=== PATIENT | female | born 1950 | race Caucasian/White ===

== ENCOUNTER 2020-05-02 17:48 | Inpatient (IN) | payer MEDICARE, MEDICAID, SELFPAY ==
[2020-05-02] VITALS (7 sets, daily range): BP systolic 153–198; BP diastolic 75–98; PULSE 85–112; RESP 22–34; TEMP 37.2; O2SAT 92–96; BMI 48.6
--- NOTE | ~2020-05-02 | XR_ITS ---
XR chest 1V portable 05/02/2020 19:04 Indication: Dyspnea and shortness of breath Procedure: AP portable chest Comparison: No prior studies for comparison. Findings: Cardiomegaly with diffuse bilateral airspace disease. Elevated right diaphragm. No pleural effusion or pneumothorax. Impression: 1: Diffuse bilateral airspace disease may represent edema or pneumonia. 2: Cardiomegaly. Reviewed, dictated and finalized at location A. MATIC I THREADING MACHINE FEEDER Impression: 1: Diffuse bilateral airspace disease may represent edema or pneumonia. 2: Cardiomegaly.
--- NOTE | ~2020-05-02 | CT_ITS ---
EXAMINATION: CTA chest PE protocol DATE: 05/03/2020 04:33 INDICATION: Acute respiratory failure. Elevated d-dimer. TECHNIQUE: Computed tomography angiography (CTA) of the chest was performed with 100 mL Omnipaque-350 intravenous contrast timed to evaluate the pulmonary arteries. Coronal maximum intensity projection 3D-reconstructions were created by the technologist. Automated exposure control and iterative reconst ruction technique were employed. Exam dose: 961.70 mGy-cm total exam DLP. COMPARISON: May 03, 2020 portable AP chest FINDINGS: There is diagnostic contrast enhancement of the pulmonary arteries. No pulmonary embolism. The main or segmental pulmonary arteries. The more peripheral pulmonary arteries are not optimally demonstrated. No thoracic aortic aneurysm or dissection. There is revision right effusion. There UPJ present in one is Cardiomegaly. Coronary artery calcification. No pericardial effusion. There are extensive bilateral patchy consolidating infiltrates, right greater than left, with promine nt consolidation in particular in the lower lobes with air bronchograms. Probable reactive bilateral hilar and mediastinal lymphadenopathy. Calcified right hilar and subcarinal nodes consistent with old pulmonary granulomatous disease. Thyroid goiter with calcifications. Status post cholecystectomy. Very small sliding hiatal hernia. Diffuse idiopathic skeletal hyperostosis of the thoracic spine. IMPRESSION: Bilateral multi focal pneumonia No apparent pulmonary embolism Reviewed, dictated and finalized at Location A. Reviewed, dictated and finalized at location A. OUND TELEMARKETER
--- NOTE | ~2020-05-02 | XR_ITS ---
EXAMINATION: XR chest 1V portable DATE: 05/04/2020 08:13 INDICATION: Respiratory failure. TECHNIQUE: A single frontal view of the chest was obtained. COMPARISON: Chest single view 05/03/2020, chest CT 05/03/2020 FINDINGS: There are patchy airspace opacities in all lung zones bilaterally. A calcified right lung n odule and calcified right hilar lymph nodes are consistent with old granulomatous disease. There is a small right pleural effusion. No pneumothorax. The heart size is normal. A right upper extremity per ipherally inserted central venous catheter (PICC) is seen with tip in the superior vena cava. IMPRESSION: 1. Diffuse lung disease with slight improvement, consistent with pneumonia. 2. Stable small right pleural effusion. Reviewed, dictated and finalized at location A. SELOR CAMP
--- NOTE | ~2020-05-02 | US_ITS ---
EXAMINATION: US venous doppler [facility] DATE: 05/03/2020 14:15 INDICATION: Lower limb edema. TECHNIQUE: Grayscale ultrasound images without and with compression and Doppler ultrasound images of the bilateral lower extremity veins were obtained. COMPARISON: None. FINDINGS: The visualized portions of right common femoral vein, profunda (deep) femoral vein, femoral vein, pop liteal vein, posterior tibial veins, and greater saphenous vein outflow are patent. The visualized portions of left common femoral vein, profunda femoral vein, femoral vein, popliteal v ein, posterior tibial veins, and greater saphenous vein outflow are patent. IMPRESSION: 1. No deep venous thrombosis. Reviewed, dictated and finalized at location A. TIENT CODER
--- NOTE | ~2020-05-02 | XR_ITS ---
XR chest 1V portable DATE: 05/03/2020 01:41 INDICATION: Acute respiratory failure. Elevated d-dimer. TECHNIQUE: Portable AP chest on May 03, 2020 at 0135 hours COMPARISON: May 02, 2020 portable AP chest at 1900 hours FINDINGS: Cardiomegaly. There are extensive bilateral pulmonary infiltrates which are more prominent centrally and in the lower lung zones. Findings may be due to pulmonary edema and/or pneumonia. There is t elevation of the right leaf of the diaphragm. Right pleural effusion is not excluded. Ther e is no evidence of left pleural effusion. No pneumothorax. IMPRESSION: Extensive bilateral pulmonary infiltrates, which may be due to pulmonary edema and/or pne umonia, with little interval change since May 02, 2020 Reviewed, dictated and finalized at location A. ITIONAL SERVICES HOST IMPRESSION: Extensive bilateral pulmonary infiltrates, which may be due to pulm onary edema and/or pneumonia, with little interval change since May 02
--- NOTE | 2020-05-02 18:13 | ECG_ITS ---
Measurements Intervals [place] Rate: 101 P: 40 AL: 172 QRS: -26 QRSD: 86 T: -15 QT: 308 QTc: 399 Interpretive Statements SINUS TACHYCARDIA EARLY PRECORDIAL R/S TRANSITION BORDERLINE ST-T WAVE ABNORMALITY- ANTEROLAT/INF LEADS BASELINE ARTIFACT- I, III, AVR, AVL, AVF, V1-V6 ABNORMAL ECG Electronically Signed On 05-03-2020 10:21:19 [employer]OR [employer] by Stefano Ford D.O.
[2020-05-02] MEDS: MAGNESIUM SULF 2 GM/WATER 50ML 2 GM/50 ML BAG IVPB (18:33)
[2020-05-02] MEDS: methylPREDNISolone SOD SUCC 125 MG VIAL IV PUSH (18:33)
[2020-05-02] MEDS: IPRATROPIUM BR 0.02% INH SOLN 0.5 MG/2.5 ML VIAL 1 MG INHALATION (18:35)
[2020-05-02] MEDS: ALBUTEROL SULFATE NEB 2.5 MG/0.5 ML INH 10 MG INHALATION (18:35)
[2020-05-02 18:38] LABS: Alveolar/Arterial O2 Gradient 7.5 mmHg; Base Excess ABG -5.1 mEq/l (+/-2.0); Fractional Inspired Oxygen 21 %; HCO3 ABG 22.5 mEq/l (22.0-26.0); Oxygen Saturation ABG 94.2 % (95.0-100.0); Oxyhemoglobin 93.3 % THb (90.0-100.0); PCO2 ABG 51.1 mmHg (35.0-45.0); PO2 FiO2 Ratio Arterial Blood 3.86 %; Total Hemoglobin 15.2 g/dL (12.0-18.0)
[2020-05-02 18:40] LABS: pH ABG 7.261 (7.350-7.450)
[2020-05-02 18:41] LABS: Device ROOM AIR; Modified Allen's Test Pass; Site Drawn LEFT RADIAL
--- NOTE | 2020-05-02 18:47 | PCRCNOTE ---
Pt found with 4L NC on ear. ABG done on room air SpO2 94%.
--- NOTE | 2020-05-02 18:57 | ED.SOB ---
HPI - SOB/Dyspnea General Chief Complaint: Shortness of Breath/Dyspnea Stated Complaint: SOB Time Seen by Provider: 05/02/20 18:12 Source: patient Mode of arrival: EMS Limitations: no limitations History of Present Illness HPI Narrative: A 69-year-old female comes into the emergency department via EMS for shortness of breath. Reportedly per EMS the patient symptoms started approximately 1 week ago. She notes that she is having extreme difficulty with breathing. Patient does note a history of asthma. She is uncertain if she was exposed anyone with Covid. Patient's history truncated secondary to emergent presentation. Related Data Home Medications Medication Instructions Recorded Confirmed atorvastatin 10 mg tablet 10 mg PO DAILY 02/07/19 citalopram 20 mg tablet 20 mg PO DAILY 02/07/19 insulin aspar prot-insulin aspart 20 unit SUB-Q DAILY 02/07/19 100 unit/mL (70-30) subcutaneous pen insulin aspart U-100 100 unit/mL 5 unit SUB-Q TID 02/07/19 (3 mL) subcutaneous pen insulin glargine 100 unit/mL (3 30 unit SUB-Q DAILY 02/07/19 mL) subcutaneous pen insulin lispro 100 unit/mL 5 unit SUB-Q QAM ml 02/07/19 subcutaneous pen insulin lispro protamine-lispro 25 unit SUB-Q QAM 02/07/19 100 unit/mL (75-25) subcutaneous susp insulin syringe-needle U-100 0.5 #10 each 02/07/19 mL 31 gauge x /16 lisinopril 40 mg tablet 40 mg PO DAILY 02/07/19 montelukast 10 mg tablet 10 mg PO DAILY 02/07/19 nystatin 100,000 unit/gram topical 1 applic TOPICAL DAILY 02/07/19 cream trazodone 50 mg tablet 50 mg PO TID 02/07/19 Allergies Allergy/AdvReac Type Severity Reaction Status Date / Time acetaminophen Allergy Unknown Verified 07/18/16 00:35 Review of Systems Review of Systems: ROS unobtainable: Yes unobtainable due to medical condition PMFSH Past Medical History Medical History Diabetes Essential hypertension Hyperkalemia Hyperlipidemia Surgical History Surgical History History of cholecystectomy History of tubal ligation Family History Family History Mother Hypercholesterolemia Malignant neoplasm of skin Father Heart disease Grandparent Diabetes mellitus Other Diabetes mellitus Breast cancer Social History Social History Smoking status: Current every day smoker Alcohol intake: current Exam Narrative: Exam Narrative: GENERAL: Obese, tachypneic appears to be in respiratory distress. HEAD: Normocephalic, atraumatic. EYES: PERRLA and EOMI. ENT: Nares clear, no rhinorrhea or epistaxis. Mucous membranes moist. Oropharynx without tonsillar hypertrophy exudate or other lesions. Bilateral TMs pearly vale nonbulging NECK: Supple. No adenopathy or masses. No carotid bruits or JVD CHEST: Diffusely wheezy, coarse breath sounds diffusely. Tachypnea HEART: Tachycardic. No murmur heard. Normal peripheral pulses. ABDOMEN: Obese abdomen, soft, nontender, nondistended, normal active bowel sounds. EXTREMITIES: Normal range of motion. No edema. SKIN: Warm, dry, no rash. NEURO: No focal deficits. Alert and oriented x3. PSYCH: Normal mood and affect. Course Reevaluation(s) Reevaluation #1: Patient was reevaluated. After the breathing treatment she did appear to be much better. She was sleeping comfortably in the bed at this time. Patient still desatted slightly. Her chest x-ray does look concerning for Covid, patient was made aware of this. She did contribute some further history that her roommate or person she lives with has been coughing like crazy the last couple of days . Time: 21:35 Consultations Consultation #1: Case discussed with Dr. Broderick, hospitalist services. All pertinent details of the case were discussed, Dr. Broderick agrees to accept the patient for further treatme
[2020-05-02 19:01] LABS: Basophils Percent Auto 0.1 % (0.2-1.2); Hematocrit 44.7 % (37.0-47.0); Hemoglobin 14.6 g/dL (12.0-15.0); Immature Granulocyte Absolute 0.05 K/mm3 (0.00-0.031); Immature Granulocyte Percent A 0.5 % (0-0.5); Lymphocytes Absolute Auto 0.67 K/mm3 (0.9-3.2); Lymphocytes Percent Auto 6.4 % (18.3-44.2); Mean Corpuscular HGB Conc 32.7 g/dl (32-36); Mean Corpuscular Hemoglobin 30.4 pg (26-34); Mean Corpuscular Volume 92.9 fl (80-100); Mean Platelet Volume 10.2 fl (7.4-10.4); Monocytes Absolute Auto 0.3 K/mm3 (0.1-0.6); Monocytes Percent Auto 3.1 % (2.6-8.5); Neutrophils Absolute Auto 9.4 K/mm3 (1.3-6.7); Neutrophils Percent Auto 89.9 % (45.5-73.1); Platelet Count Result 143 k/mm3 (150-375); Red Blood Count 4.81 M/mm3 (4.2-5.4); Red Cell Distribution Width 12.6 % (11.5-14.5); White Blood Count 10.5 K/mm3 (4.5-10.0)
[2020-05-02 19:13] LABS: Alanine Aminotransferase 23 U/L (4-35); Albumin Level 3.7 g/dL (3.5-5.1); Alkaline Phosphatase 102 U/L (38-126); Anion Gap 6 mmol/L (8-16); Aspartate Amino Transferase 32 U/L (14-36); Bilirubin,Total 0.3 mg/dL (0.2-1.3); Blood Urea Nitrogen 17 mg/dL (7-17); Calcium 8.2 mg/dL (8.4-10.2); Carbon Dioxide 21 mmol/L (22-30); Chloride 107 mmol/L (98-107); Estimated CRCL calculation 94 ml/min; Estimated Glomerular Filt Rate > 60; Glucose 292 mg/dL (65-105); Magnesium 1.6 mg/dL (1.6-2.3); Potassium 4.7 mmol/L (3.4-5.0); Sodium 134 mmol/L (137-145)
[2020-05-02 19:25] LABS: Troponin I 0.021 ng/mL (0.000-0.034)
[2020-05-02] MEDS: FUROSEMIDE INJ 40 MG/4 ML VIAL IV PUSH (19:42)
[2020-05-02 20:25] LABS: NT Pro B Type Natriuretic Pept 348 PG/ML (5-100)
[2020-05-02] MEDS: KETOROLAC 15 MG/ML VIAL (*BKC) IV PUSH (21:00)
--- NOTE | 2020-05-02 21:18 | PM.IMHP ---
H&P: HPI History of Present Illness Date/Time: 05/02/20 21:18 Chief Complaint: Shortness of breath and cough Narrative: Ann Hill is a 69 year old female with a past medical history of chronic tobacco abuse, asthma, morbid obesity and insulin-dependent diabetes who presented to the ER with with 1 week of cough and shortness of breath. Patient reports that she has had a cough productive of yellow sputum for the last 7 days. Her cough but has been associated with worsening shortness of breath. Her shortness of breath is present at rest but worse with exertion. She was noted to be wheezing and had crackles on exam on arrival to the ER but improved after a continuous hour long neb. She denies any fevers or chills but reports that she feels hot in the ER. She denies any known COVID exposures but her roommate has been coughing for the last 2 weeks. She denies any nausea or vomiting but has had some decreased appetite. She reports that she always has myalgias and arthralgias and denies any changes in her chronic pain. She has not noticed any loss of sense of taste or smell. She denies any chest pain, palpitations or changes in her chronic lower extremity swelling. She denies history of CHF for heart disease. She has never been told that she has COPD but had has not had any pulmonary function testing. She was noted to have episodes of hypoxia with falling asleep in the ER. She does not have a known history of obstructive sleep apnea but has never had a sleep study. She has been having some stress urinary incontinence with coughing. She denies any dysuria, hematuria, hematochezia or melena. She did have a few episodes of loose stools several days ago but this has since resolved. She denies any abdominal pain. Review of Systems Review of Systems: Narrative: 12 systems were reviewed with pertinent positives and negatives per HPI. Except as documented in the HPI, all other systems were reviewed and are negative. [facility]LY [facility] Past Medical History Medical History (Updated 05/02/20 @ 23:23 by Mireya Zendejas DO) Diabetes Diabetic neuropathy Essential hypertension Hyperlipidemia Morbid obesity Overflow stress urinary incontinence in female Surgical History Surgical History History of cholecystectomy History of tubal ligation Family History Family History Mother Hypercholesterolemia Malignant neoplasm of skin Father Heart disease Grandparent Diabetes mellitus Other Diabetes mellitus Breast cancer Social History Social History (Updated 05/02/20 @ 23:13 by Mireya Zendejas DO) Social History: She is and lives with a roommate. She has 1 adult daughter. Her son in 2012 due to an ATV accident. She has smoked as much as pack of cigarettes per day since she was a teenager. She is currently cut down to half a pack of cigarettes per day for the last year or so. She occasionally drinks alcohol in moderation. She denies any illicit substance use. 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 Code status: Full code Surrogate decision maker: Daughter Smoking packs per day: 0.5 Smoking cigarettes per day: 10.0 Smoking status: Current every day smoker Tobacco type: cigarettes Alcohol intake: current Drinks per week: 1 Substance use: never Substance use type: does not use Gender identity (if verbalized by the patient): Female Sexual Orientation (if Verbalized by the Patient): Straight or Heterosexual Spiritual care concerns: No Meds Home Medications and Allergies Home Medications Medication Instructions Recorded Confirmed Type atorvastatin 10 mg tablet 10 mg PO DAILY 02/07/19 05/03/20 History citalopram 20 mg tablet 20 mg PO DAILY 02/07/19 05/03/20 History insulin aspar prot-insulin aspart 20 unit SUB-Q DAILY 02/07/19 05/03/20 History 100 unit/mL (70-30
[2020-05-03] VITALS (31 sets, daily range): BP systolic 95–160; BP diastolic 49–100; PULSE 71–97; RESP 18–38; TEMP 35.7–37.2; O2SAT 92–99
--- NOTE | 2020-05-03 | ECHO_ITS ---
Patient Info Name: Ann Hill Age: 69 years : 1950 Gender: Female Ht: 64 in Wt: 286 lbs BSA: 2.50 m2 HR: 82 bpm BP: 88 / 68 mmHg Heart Rhythm: Sinus Rhythm Technical Quality: Fair Exam Date: 05/03/2020 4:32 PM Exam Location: [facility] Pulmonary Exam Room: icu 4 Patient Status: Inpatient Admit Date: 05/03/2020 Staff Ordering Physician: Mireya Zendejas DO Fabric Worker: Lamar Bergeron RDCS Attending Provider: Mireya Zendejas DO Referring Physician: Aashish SHEIKH; Exam Type: CA echo doppler color flow Study Info Indications - RESP FAILURE CM Complete two-dimensional, color flow and Doppler transthoracic echocardiogram is performed. Summary 1. Complete two-dimensional, color flow and Doppler transthoracic echocardiogram is performed. 2. Left ventricular systolic function is normal, estimated at 55%. 3. There is akinesis of the mid inferoseptum and hypokinesis of the mid anteroseptum. 4. There is mildly increased left ventricular wall thickness. 5. Left atrial chamber dimension is moderately enlarged. 6. There is no aortic valve stenosis. 7. No pulmonary hypertension, estimated pulmonary arterial systolic pressure is 28 mmHg. Left Ventricle Left ventricular chamber dimension is normal. Left ventricular systolic function is normal, estimated at 55%. There is mildly increased left ventricular wall thickness. The left ventricular diastolic function is normal. There is akinesis of the mid inferoseptum and hypokinesis of the mid anteroseptum. Right Ventricle Right ventricular chamber dimension is normal. Right ventricular systolic function is normal. Left Atria Left atrial chamber dimension is moderately enlarged. Right Atria Right atrial chamber dimension is normal. Aortic Valve The aortic valve is not well visualized. There is mild aortic valve sclerosis. There is no aortic valve stenosis. There is no aortic valve regurgitation. Pulmonic Valve The pulmonic valve is not well visualized. Mitral Valve The mitral valve has normal leaflets. There is no mitral valve regurgitation. The mitral valve annulus is mildly calcified. Tricuspid Valve The tricuspid valve leaflets are normal. There is trace tricuspid valve regurgitation. No pulmonary hypertension, estimated pulmonary arterial systolic pressure is 28 mmHg. Pericardium/Pleural The pericardium appears normal. There is trivial pericardial effusion. Inferior Vena Cava Normal inferior vena cava with <50% collapse upon inspiration consistent with elevated right atrial pressure, 10 mmHg. Aorta The aortic root size at the sinus of Valsalva is normal. Left Ventricular Outflow Tract Name Value Normal LVOT 2D LVOT Diameter 2.1 cm LVOT Doppler LVOT Peak Gradient 5 mmHg LVOT Mean Gradient 3 mmHg LVOT VTI 22 cm LVOT VTI/AV VTI Ratio 0.9 LVOT Stroke Volume 78 ml LVOT CO 17.6 l/min LVOT CI
[2020-05-03 01:34] LABS: Alveolar/Arterial O2 Gradient 603.5 mmHg; Base Excess ABG -9.3 mEq/l (+/-2.0); Carboxyhemoglobin 0.1 % THb (0-2.0); Fractional Inspired Oxygen 100 %; HCO3 ABG 17.9 mEq/l (22.0-26.0); Methemoglobin ABG 0.3 %THb (0-1.5); Oxygen Content ABG 19.8 %vol (16.0-22.0); Oxygen Saturation ABG 89.4 % (95.0-100.0); Oxyhemoglobin 90.4 % THb (90.0-100.0); PCO2 ABG 43.5 mmHg (35.0-45.0); PO2 FiO2 Ratio Arterial Blood 0.66 %; Reduced Hemoglobin 9.2 %THb (0-5.0); Total Hemoglobin 15.6 g/dL (12.0-18.0)
[2020-05-03 01:35] LABS: Device NON-REBREATHER MASK; Modified Allen's Test Pass; Site Drawn RIGHT RADIAL; pH ABG 7.232 (7.350-7.450)
--- NOTE | 2020-05-03 01:57 | ADMGEN ---
This patient, Ann Hill, was admitted to [facility] Surg Room 303-01. Patient/family oriented to hospital policies and general routines including ID bracelet, bed and alarms, visiting hours, pain management, procedures, bathroom and other care routines, personal items, smoking policy, room service/diet, and visiting hours. Information on how to activate the Rapid Response Team has been discussed. Patient/Family are encouraged to report perceived risks to care and to ask questions if they do not understand what they are told or what they should do.
[2020-05-03 02:08] LABS: INR 0.9; Prothrombin Time 12.8 Seconds (11.1-14.7)
--- NOTE | 2020-05-03 02:09 | PM.CCN ---
Critical Care Event Note Summary Code activated: No Narrative: 05/03/2020 at 1:15 a.m. A rapid response was called. The patient had had oxygen desaturations to the mid 70s while trying to be placed on the bedpan. The patient's respiratory rate had climbed to the mid 30s and she had respiratory distress. Patient had been placed on a non-rebreather with improvement in her oxygen saturations up to 93%. The patient's oxygen was weaned back down to 5 L nasal cannula but within 10-15 minute she again desatted to the low 80s. A stat chest x-ray was of performed which demonstrated worsening right upper and lower lobe lung opacities and stable cardiomegaly. Worsening PH but improvement in her pCO2 to a normal range. However she had new hypoxia with PO2 of 66% on non-rebreather. GENERAL: Acutely ill-appearing, morbidly obese, respiratory distress HEENT: Nasal cannula and non-rebreather in place, head is normocephalic atraumatic, large neck circumference CARDIOVASCULAR: Sinus rhythm with PACs, no murmurs RESPIRATORY: Coarse crackles bilaterally, and expiratory wheezing, marked tachypnea with accessory muscle use ABDOMEN: Obese, soft INTEGUMENT: Generalized pallor, non jaundice, chronic venous stasis changes of lower extremities NEUROLOGIC: Alert and oriented PSYCHIATRIC: Anxious EXTREMITIES: 1+ pitting edema to the feet with redundant skin : Incontinent of urine, Archuleta catheter was placed during the course of rapid response 05/02/20 05/03/20 18:34 01:29 Puncture Site Left radial Right radial ABG pH 7.261 L* 7.232 L* ABG pCO2 51.1 H 43.5 ABG pO2 81.0 66.0 L ABG PO2/FiO2 Ratio 3.86 0.66 ABG HCO3 22.5 17.9 L ABG O2 Saturation 94.2 L 89.4 L ABG O2 Content 20.0 19.8 ABG Base Excess -5.1 -9.3 A-a Gradient 7.5 603.5 Oxyhemoglobin 93.3 90.4 Carboxyhemoglobin 0.1 Reduced Hemoglobin 9.2 H Total Hemoglobin 15.2 15.6 O2 Delivery Device Room air Non-rebreather mask O2 Liters/Min Not Reportable 15.0 FiO2 21 100 Chest x-ray: Personally reviewed demonstrated worsening right upper and lower lobe infiltrates, radiologic interpretation pending Assessment and plan: 1. acute hypercapnic hypoxic respiratory failure--patient has been transferred to the ICU as an IMU overflow. She has been placed on BiPAP with settings of 14/8 with backup rate of 12. Patient's respiratory status has stabilized. Her respiratory rate is down to the mid 20s and less labored. She is pulling tidal volumes of 500-550. Her oxygen saturations on 100% FiO2 are 92%. 2. Pneumonia suspicious for COVID--patient remains on contact and droplet isolation. Will switch patient to albuterol nebulizers and Atrovent nebulizers. Will resume Solu-Medrol until COVID result is known. 60 minutes spent in critical care activities. This case had a high probability of a clinically significant, sudden, or life threatening deterioration of this patient's condition which required my full and direct attention, intervention and personal management. Critical care time: 30 - 74 mins
[2020-05-03 02:11] LABS: Lactic Acid Reflex 2.6 mmol/L (0.7-2.1)
[2020-05-03 02:12] LABS: D Dimer 1.56 ug/mL (<0.48)
[2020-05-03 02:24] LABS: Add Urine Microscopic? YES; Appearance Urine Cloudy (Clear); Bilirubin Urine Negative (Negative); Blood Urine 2+ (Negative); Color Urine Yellow (Yellow); Glucose Urine UA 3+ mg/dL (Negative); Ketones Urine Negative (Negative); Leukocyte Esterase Ur Negative LEU/UL (Negative); Mucus Urine Rare /lpf; Nitrate Urine Negative (Negative); Protein Urine 3+ mg/dL (Negative); Specific Grav Ur 1.025 (1.001-1.035); Squamous Epithelial Cell Urine Rare /hpf (Few); Urobilinogen Urine Negative mg/dL (<2.0); WBC Urine 0-3 /hpf
--- NOTE | 2020-05-03 02:27 | ECG_ITS ---
Measurements Intervals [place] Rate: 83 P: 34 AR: 162 QRS: 35 QRSD: 106 T: 31 QT: 408 QTc: 482 Interpretive Statements SINUS RHYTHM WITH SINUS ARRHYTHMIA BASELINE ARTIFACT- II, III, AVR, AVL, AVF NORMAL ECG Electronically Signed On 05-03-2020 10:21:44 OUTCOME ANALYST by Stefano Ford D.O.
[2020-05-03] MEDS: ALBUTEROL SULFATE NEB 2.5 MG/0.5 ML INH INHALATION (02:39)
[2020-05-03] MEDS: SODIUM CHLORIDE 0.9% IV 1,000 ML 999 ML IV CONT (03:25)
[2020-05-03 03:40] LABS: Alveolar/Arterial O2 Gradient 306.4 mmHg; Base Excess ABG -6.3 mEq/l (+/-2.0); Carboxyhemoglobin 0.3 % THb (0-2.0); Device NON-INVASIVE VENT; Fractional Inspired Oxygen 60 %; HCO3 ABG 19.5 mEq/l (22.0-26.0); Methemoglobin ABG 0.4 %THb (0-1.5); Modified Allen's Test Pass; Non-Invasive Inspiratory Pressure 14 CMH2O; Non-Invasive Vent Rate 12 /MIN; Oxygen Content ABG 19.3 %vol (16.0-22.0); Oxygen Saturation ABG 94.4 % (95.0-100.0); Oxyhemoglobin 93.8 % THb (90.0-100.0); PCO2 ABG 39.9 mmHg (35.0-45.0); PO2 ABG 77.5 mmHg (80.0-100.0); PO2 FiO2 Ratio Arterial Blood 1.29 %; Reduced Hemoglobin 5.5 %THb (0-5.0); Site Drawn RIGHT RADIAL; Total Hemoglobin 14.6 g/dL (12.0-18.0); pH ABG 7.307 (7.350-7.450)
[2020-05-03 03:41] LABS: Non-Invasive Expiratory Pressure 8 CMH2O
[2020-05-03] MEDS: ENOXAPARIN 100 MG/ML SYRINGE SUB-Q ×2 (03:43→16:15)
[2020-05-03] MEDS: ENOXAPARIN 30 MG/0.3 ML SYRINGE SUB-Q ×2 (03:43→16:15)
--- NOTE | 2020-05-03 04:21 | PCRCNOTE ---
Apnea study was stopped due to a change in the patient's status; The patient was placed on NIV and transported to the ICU.
[2020-05-03 04:55] LABS: Reflex Lactic Acid Yes or No Add Lactic
[2020-05-03 05:03] LABS: Basophils Percent Auto 0.1 % (0.2-1.2); Hematocrit 40.6 % (37.0-47.0); Hemoglobin 13.2 g/dL (12.0-15.0); Immature Granulocyte Absolute 0.08 K/mm3 (0.00-0.031); Immature Granulocyte Percent A 0.6 % (0-0.5); Lymphocytes Absolute Auto 0.52 K/mm3 (0.9-3.2); Lymphocytes Percent Auto 4.2 % (18.3-44.2); Mean Corpuscular HGB Conc 32.5 g/dl (32-36); Mean Corpuscular Hemoglobin 29.7 pg (26-34); Mean Corpuscular Volume 91.2 fl (80-100); Mean Platelet Volume 10.2 fl (7.4-10.4); Monocytes Absolute Auto 0.4 K/mm3 (0.1-0.6); Monocytes Percent Auto 3.1 % (2.6-8.5); Neutrophils Absolute Auto 11.5 K/mm3 (1.3-6.7); Platelet Count Result 137 k/mm3 (150-375); Red Blood Count 4.45 M/mm3 (4.2-5.4); Red Cell Distribution Width 12.8 % (11.5-14.5); White Blood Count 12.5 K/mm3 (4.5-10.0)
[2020-05-03 05:34] LABS: Anion Gap 6 mmol/L (8-16); Blood Urea Nitrogen 22 mg/dL (7-17); Calcium 8.1 mg/dL (8.4-10.2); Carbon Dioxide 20 mmol/L (22-30); Chloride 105 mmol/L (98-107); Estimated CRCL calculation 79 ml/min; Estimated Glomerular Filt Rate > 60; Glucose 485 mg/dL (65-105); Lactate Dehydrogenase 547 U/L (313-618); Potassium 4.9 mmol/L (3.4-5.0); Sodium 131 mmol/L (137-145)
[2020-05-03 05:47] LABS: CRP 14.6 mg/dL (<1.0)
[2020-05-03 05:55] LABS: Hemoglobin A1C 8.8 % (<5.7)
[2020-05-03] MEDS: SODIUM CHLORIDE 0.9% IV 1,000 ML 100 ML IV CONT (06:36)
[2020-05-03] MEDS: INSULIN ASPART (*BKC) 100 UNITS/ML 15 UNITS SUB-Q (06:36)
[2020-05-03] MEDS: INSULIN GLARGINE (*BKC) 100 UNITS/ML 40 UNITS SUB-Q ×3 (06:38→19:59)
[2020-05-03 06:50] LABS: Lactic Acid 1.1 mmol/L (0.7-2.1)
--- NOTE | 2020-05-03 06:55 | PC.NURSE ---
This patient Ann Hill was admitted to ICU bed [address] [place] [address] at 0200. Patient's belongings brought with patient.
[2020-05-03 07:04] LABS: Glucose Point of Care 463 (65-105)
[2020-05-03] MEDS: ALBUTEROL SULFATE NEB 2.5 MG/0.5 ML INH 5 MG INHALATION ×3 (08:06→20:02)
[2020-05-03] MEDS: IPRATROPIUM BR 0.02% INH SOLN 0.5 MG/2.5 ML VIAL INHALATION ×3 (08:06→20:02)
[2020-05-03] MEDS: INSULIN ASPART (*BKC) 100 UNITS/ML 11 UNITS SUB-Q ×3 (08:17→16:10)
[2020-05-03] MEDS: INSULIN ASPART (*BKC) 100 UNITS/ML SUB-Q ×3 (08:18→16:11)
[2020-05-03] MEDS: FUROSEMIDE INJ 40 MG/4 ML VIAL IV PUSH (08:20)
[2020-05-03] MEDS: SODIUM CHLORIDE 0.9% IV 1,000 ML 30 ML IV CONT (08:21)
[2020-05-03] MEDS: lisinopriL 20 MG TABLET 40 MG PO (08:24)
[2020-05-03] MEDS: MICONAZOLE NITRATE 2% CREAM 30 GM TUBE 1 APPLIC TOPICAL (08:24)
[2020-05-03] MEDS: MONTELUKAST SODIUM 10 MG TABLET PO (08:24)
[2020-05-03] MEDS: ATORVASTATIN 10 MG TABLET PO (08:24)
[2020-05-03] MEDS: INSULIN ASPART (*BKC) 100 UNITS/ML 10 UNITS SUB-Q (08:39)
[2020-05-03 08:53] LABS: Glucose Point of Care 461 (65-105)
[2020-05-03 09:20] LABS: Influenza Control Positive
[2020-05-03] MEDS: LIDOCAINE HCL 1% PF INJ 5 ML VIAL INFILTRATE (10:30)
--- NOTE | 2020-05-03 10:49 | PM.CNCAR ---
Assessment and Plan Additional Plan 69-year-old lady with: Significantly elevated troponin levels sampled in the absence of any other clinical or electrocardiographic evidence of an acute coronary syndrome. She has significant pneumonia on chest x-ray 1 must presume until proven otherwise that she has fisher virus. The majority of patients with COVID in this setting have significantly elevated troponin levels and I would presume that this is the reason for here laboratory findings. There is no clinical reason to think she will benefit from undergoing a coronary angiogram and I am not going to recommend this in this setting. Reduced dose anticoagulation with Lovenox is reasonable. She was placed on full dose by the hospitalists I believe last evening. Another potential alternative is COVID related myocarditis which is also not uncommon. Dimitris Dillon MD [facility] History of Present Illness History of Present Illness Consult date/time: 05/03/20 10:49 Reason For Visit: Asthma exacerbation/Suspected COVID Narrative: This is a 69-year-old woman I am seeing at the request of the hospitalist this morning because of elevated troponin levels that were done as part of her admission evaluation. The patient is not known to have any cardiac problems before this and is not reporting any chest pain. She came to the hospital with a history of shortness of breath that began approximately a week before admission it became more severe. She was asked if she had any fisher virus contacts and she indicated that a family member with whom she lives has had significant cough but has not been tested for COVID. The patient on arrival in the emergency room was hypoxemic she was placed on BiPAP treatment in the emergency room her chest x-ray demonstrates a multilobe pneumonia pattern and her electrocardiogram shows no evidence of any ischemia/current of injury. She denies having any sense of chest pain pressure or heaviness. The patient had troponin levels sampled of course when she was admitted to the hospital and they are significantly elevated the last one was 4.2. In this setting I am asked to see her in consultation. She is in ICU room 4. And COVID swab is pending at the time of this dictation. She is wearing a BiPAP mask and appears to be alert and answers questions appropriately. Review of Systems Constitutional: Constitutional: Reports fatigue Eyes: Eyes: Reports no additional eye complaints ENT: Reports system reviewed and no additional complaints, except as documented Cardiovascular: Cardiovascular: Reports no additional cardiovascular complaints Respiratory: Respiratory: Reports cough and Reports dyspnea Comments: Nonproductive cough Gastrointestinal: Gastrointestinal: Reports no additional gastrointestinal complaints Musculoskeletal: Musculoskeletal: Reports no additional musculoskeletal complaints Integumentary/Breasts: Skin/Breast: Reports system reviewed and no additional complaints, except as docu Neurologic: Reports system reviewed and no additional complaints, except as documented Endocrine: Endocrine: Reports no additional endocrine complaints Hematologic/Lymphatic: Hematologic/Lymphatic: Reports no additional hematologic/lymphatic complaints Allergic/Immunologic: Allergic/Immunologic: Reports no additional allergic/immunologic complaints [facility] Past Medical History Medical History (Updated 05/02/20 @ 23:23 by Mireya Zendejas DO) Diabetes Diabetic neuropathy Essential hypertension Hyperlipidemia Morbid obesity Overflow stress urinary incontinence in female Surgical History Surgical History History of cholecystectomy History of tubal ligation Family History Family History Mother Hypercholesterolemia Malignant neoplasm of skin Father Heart disease Grandparent Diabetes mellitus Other Diabetes mellitus
[2020-05-03 11:21] LABS: Glucose Point of Care 340 (65-105)
[2020-05-03] MEDS: CENTRAL LINE FLUSH 10 ML IV PUSH ×2 (13:56→20:00)
[2020-05-03 16:23] LABS: Glucose Point of Care 213 (65-105)
--- NOTE | 2020-05-03 17:11 | PM.IMPN ---
Progress Note: A&P Assessment and Plan (1) Acute hypercapnic respiratory failure: Code(s): J96.02 - Acute respiratory failure with hypercapnia Status: Acute Assessment and Plan: On continuous BiPAP Continuous pulse ox (2) Asthma with exacerbation: Qualifiers: Asthma persistence: persistent Asthma severity: severe Qualified Code(s): J45.51 - Severe persistent asthma with (acute) exacerbation Code(s): J45.901 - Unspecified asthma with (acute) exacerbation Status: Acute Assessment and Plan: Breathing treatments Systemic steroids (3) Acute respiratory failure due to COVID-19: Code(s): U07.1 - COVID-19; J96.00 - Acute respiratory failure, unspecified whether with hypoxia or hypercapnia Status: Acute Assessment and Plan: Positive Remdesivir Dexamethasone Convalescent plasma (4) Type 2 diabetes mellitus with hyperglycemia: Qualifiers: Diabetes mellitus alf insulin use: with alf use Qualified Code(s): E11.65 - Type 2 diabetes mellitus with hyperglycemia; Z79.4 - long-term (current) use of insulin Code(s): E11.65 - Type 2 diabetes mellitus with hyperglycemia Status: Acute Assessment and Plan: NPO ISS as needed (5) Tobacco abuse disorder: Code(s): Z72.0 - Tobacco use Status: Acute Assessment and Plan: Noted Subjective Date/time seen: 05/03/20 17:11 Patient is on BiPAP Review of Systems Review of Systems: ROS unobtainable: Yes unobtainable due to medical condition Exam Narrative: Exam Narrative: Lying in bed Const: General: acute distress (On BiPAP, tachypneic) mild Nutritional Appearance: overweight Orientation/consciousness: patient oriented x3 HENMT: Head: normal to inspection and normocephalic Ears: hearing grossly normal bilaterally Face and sinus: normal facial exam Eyes: General: appearance normal, both eyes and all related structures Pupils: Equal, round and reactive pupils present EOM: EOMs intact bilaterally Neck: Neck: no lymphadenopathy, supple and no JVD Lymphatic: no lymphadenopathy noted Resp: Effort & Inspection: respiratory distress and tachypneic Auscultation: wheezes and diminished lung sounds Cardio: Jugular venous distension: no JVD Rate: regular rate Rhythm: regular rhythm GI: GI Palp: Yes Soft to palpation and Yes No hepatosplenomegaly present Skin: Wounds: no wounds Neuro: General: patient oriented x3 and CN's II-XI intact bilaterally Cranial nerves: Yes CN's II-XII intact bilaterally and Yes Equal, round and reactive pupils present Cognition (Neuro): normal cognition Motor exam (neuro): 5/5 motor strength present throughout Extrem: General: no pedal edema Objective Data Vital Signs Vital Signs: Vital Signs - 24 hr 05/02/20 17:58 05/02/20 18:14 05/02/20 18:35 Temperature 99.0 F Pulse Rate 103 H 106 H Respiratory Rate 32 H 34 H Blood Pressure 198/75 H Pulse Oximetry 96 96 05/02/20 20:12 05/02/20 20:59 05/02/20 22:47 Temperature Pulse Rate 112 H 90 96 Respiratory Rate 28 H 22 H 26 H Blood Pressure 153/98 H Pulse Oximetry 95 96 05/02/20 23:57 05/03/20 00:00 05/03/20 01:15 Temperature 97.6 F Pulse Rate 85 86 95 Respiratory Rate 38 H Blood Pressure 160/100 H Pulse Oximetry 92 92 05/03/20 02:00 05/03/20 02:01 05/03/20 02:03 Temperature Pulse Rate 96 96 97 Respiratory Rate 31 H 34 H Blood Pressure Pulse Oximetry 92 93 05/03/20 02:11 05/03/20 02:15 05/03/20 02:39 Temperature Pulse Rate 94 87 Respiratory Rate 35 H 33 H Blood Pressure 143/88 H Pulse Oximetry 94 92 05/03/20 02:46 05/03/20 04:00 05/03/20 04:39 Temperature Pulse Rate 86 84 79 Respiratory Rate 31 H 28 H 27 H Blood Pressure Pulse Oximetry 97 97 05/03/20 05:30 05/03/20 06:00 05/03/20 08:00 Temperature 98.4 F Pulse Rate 83 82 90 Respiratory Rate 26 H 27 H 20 Blood Pressure 151/88 H 1
[2020-05-03 18:11] LABS: SARS-CoV-2 RNA PCR Positive
[2020-05-03 20:10] LABS: Glucose Point of Care 134 (65-105)
--- NOTE | 2020-05-03 22:56 | PCRCNOTE ---
05/03/2020 PT still on bipap of 14/8 RR 12 and 50%. Unable to due apnea link tonight due to cont. bipap. Wait till pt is more stable.
[2020-05-04] VITALS (32 sets, daily range): BP systolic 94–159; BP diastolic 44–88; PULSE 72–86; RESP 18–28; TEMP 35.9–36.7; O2SAT 94–100
[2020-05-04] MEDS: ALBUTEROL SULFATE NEB 2.5 MG/0.5 ML INH 5 MG INHALATION ×4 (01:58→20:58)
[2020-05-04] MEDS: IPRATROPIUM BR 0.02% INH SOLN 0.5 MG/2.5 ML VIAL INHALATION ×4 (01:58→20:58)
[2020-05-04] MEDS: CENTRAL LINE FLUSH 10 ML IV PUSH ×3 (06:10→19:59)
[2020-05-04] MEDS: ENOXAPARIN 100 MG/ML SYRINGE SUB-Q ×2 (06:10→17:25)
[2020-05-04] MEDS: ENOXAPARIN 30 MG/0.3 ML SYRINGE SUB-Q ×2 (06:11→17:25)
--- NOTE | 2020-05-04 08:40 | WPDCNINT ---
Assessment and Plan Assessment and plan (1) Acute respiratory failure with hypoxia and hypercapnia: Code(s): J96.01 - Acute respiratory failure with hypoxia; J96.02 - Acute respiratory failure with hypercapnia Status: Acute Assessment and Plan: Acute Respiratory failure secondary to COVID-19, ? questionable secondary bacterial pneumonia, baseline asthma/COPD, obesity hypoventilation syndrome CTA 2/ - IMPRESSION: Bilateral multi focal pneumonia No apparent pulmonary embolism CXR today 1. Diffuse lung disease with slight improvement, consistent with pneumonia. 2. Stable small right pleural effusion Patient currently on BiPAP 09/10 in 40% FiO2 I will try to switch her to AirVo today and see if she tolerates. If that is the case we will use BiPAP at night as patient does have element of hypercarbia and is morbidly obese ABG ordered and pending today Bronchodilators Continue antibiotics for empiric bacterial coverage = Rocephin and azithromycin. Cultures negative till now Patient is on dexamethasone for COVID-19 which should cover for asthma/COPD (2) Asthma with exacerbation: Qualifiers: Asthma persistence: persistent Asthma severity: severe Qualified Code(s): J45.51 - Severe persistent asthma with (acute) exacerbation Code(s): J45.901 - Unspecified asthma with (acute) exacerbation Status: Acute Assessment and Plan: Breathing treatments Systemic steroids (3) Acute respiratory failure due to COVID-19: Code(s): U07.1 - COVID-19; J96.00 - Acute respiratory failure, unspecified whether with hypoxia or hypercapnia Status: Acute Assessment and Plan: SARS-CoV-2 PCR positive Patient is in Airborne, Droplet and Contact Isolation Continue dexamethasone, remdesivir Convalescent Plasma is already ordered Incentive spirometry and up in chair to minimize atelectasis Cautious IVF Follow inflammatory periodically (4) Type 2 diabetes mellitus with hyperglycemia: Qualifiers: Diabetes mellitus care home insulin use: with intermediate designer use Qualified Code(s): E11.65 - Type 2 diabetes mellitus with hyperglycemia; Z79.4 - skilled nursing (current) use of insulin Code(s): E11.65 - Type 2 diabetes mellitus with hyperglycemia Status: Acute Assessment and Plan: NPO Sliding scale insulin and Lantus (5) NSTEMI (non-ST elevated myocardial infarction): Code(s): I21.4 - Non-ST elevation (NSTEMI) myocardial infarction Status: Acute Assessment and Plan: Patient seen by Cardiology. Recommend conservative management at this time and no plan for angiogram Continue aspirin, statin, lisinopril. Not on beta-therese due to asthma/COPD Continues anticoagulation until troponin levels trend downward ECHO Summary 1. Complete two-dimensional, color flow and Doppler transthoracic echocardiogram is performed. 2. Left ventricular systolic function is normal, estimated at 55%. 3. There is akinesis of the mid inferoseptum and hypokinesis of the mid anteroseptum. 4. There is mildly increased left ventricular wall thickness. 5. Left atrial chamber dimension is moderately enlarged. 6. There is no aortic valve stenosis. 7. No pulmonary hypertension, estimated pulmonary arterial systolic pressure is 28 mmHg. Additional Plan DVT prophylaxis -on Lovenox Stress ulcer prophylaxis -addPPI Nutrition -start diet today Code Status - Full Code I spoke patient in detail and she is willing to go on mechanical ventilation if needed and requests to be full code Total Critical Care Time - 35 minutes Due to a high probability of clinically significant, life threatening deterioration, the patient required my highest level of preparedness to intervene emergently and I personally spent this critical care time directly and personally managing the patient. This critical care time included obtaining a history; examining the patient; pulse oximetry; ordering and review of studies; a
[2020-05-04 09:05] LABS: Hematocrit 37.5 % (37.0-47.0); Immature Platelet Fraction Pct 4.3 % (0.9-11.2); Mean Corpuscular Hemoglobin 29.5 pg (26-34); Mean Corpuscular Volume 92.1 fl (80-100); Mean Platelet Volume 10.5 fl (7.4-10.4); Platelet Count Result 115 k/mm3 (150-375); Red Blood Count 4.07 M/mm3 (4.2-5.4); Red Cell Distribution Width 13.3 % (11.5-14.5)
[2020-05-04 09:08] LABS: Glucose Point of Care 146 (65-105)
[2020-05-04 09:13] LABS: Alanine Aminotransferase 24 U/L (4-35); Estimated CRCL calculation 61 ml/min; Estimated Glomerular Filt Rate 55
[2020-05-04] MEDS: MONTELUKAST SODIUM 10 MG TABLET PO (09:17)
[2020-05-04] MEDS: ATORVASTATIN 10 MG TABLET PO (09:17)
[2020-05-04] MEDS: lisinopriL 5 MG TABLET PO (09:17)
[2020-05-04] MEDS: MICONAZOLE NITRATE 2% CREAM 30 GM TUBE 1 APPLIC TOPICAL (09:17)
[2020-05-04] MEDS: SODIUM CHLORIDE 0.9% IV 250 ML 30 ML IV CONT (09:18)
[2020-05-04] MEDS: DEXAMETHASONE SOD PHOS INJ 4 MG/ML VIAL 6 MG IV PUSH (09:19)
[2020-05-04] MEDS: REMDESIVIR 200 MG/NS 250 ML 200 MG/250 ML BAG 250 MG IVPB (09:40)
[2020-05-04 10:12] LABS: Alveolar/Arterial O2 Gradient 220.9 mmHg; Base Excess ABG -2.5 mEq/l (+/-2.0); Carboxyhemoglobin 0.3 % THb (0-2.0); Fractional Inspired Oxygen 50 %; HCO3 ABG 22.6 mEq/l (22.0-26.0); Methemoglobin ABG 0.4 %THb (0-1.5); Oxygen Content ABG 17.4 %vol (16.0-22.0); Oxygen Saturation ABG 96.7 % (95.0-100.0); Oxyhemoglobin 95.7 % THb (90.0-100.0); PCO2 ABG 40.1 mmHg (35.0-45.0); PO2 ABG 90.5 mmHg (80.0-100.0); PO2 FiO2 Ratio Arterial Blood 1.81 %; Reduced Hemoglobin 3.6 %THb (0-5.0); Total Hemoglobin 12.9 g/dL (12.0-18.0); pH ABG 7.368 (7.350-7.450)
[2020-05-04 10:13] LABS: Device HIGH FLOW THERAPY; Modified Allen's Test Pass; Site Drawn RIGHT RADIAL
--- NOTE | 2020-05-04 11:13 | PM.PNCARD ---
Progress Note: A&P Additional Plan NSTEMI in setting of COVID pneumonia, could be related to myocardits vs ACS, plan Cont Anticoagulation with LMWH, ASA, statin and keep HGB > 10 gm/dL and keep sat > 88%. Subjective Date/time seen: 05/04/20 11:13 Interval history: no acute events Tele: Sinus tachycardia Review of Systems Review of Systems: ROS unobtainable: Yes unobtainable due to medical condition Objective Data Vital Signs Vital Signs: Vital Signs - 24 hr 05/03/20 11:14 05/03/20 12:00 05/03/20 13:49 Temperature 36.6 C 36.6 C Pulse Rate 75 79 78 Respiratory Rate 26 H 20 18 Blood Pressure 142/75 H 145/79 H Pulse Oximetry 94 94 95 05/03/20 14:38 05/03/20 14:47 05/03/20 15:42 Temperature 36.6 C Pulse Rate 77 88 76 Respiratory Rate 26 H 23 H 20 Blood Pressure 119/79 Pulse Oximetry 94 95 05/03/20 17:05 05/03/20 17:06 05/03/20 20:00 Temperature 36.7 C 35.7 C L Pulse Rate 73 78 87 Respiratory Rate 28 H 31 H 30 H Blood Pressure 95/49 L 102/86 Pulse Oximetry 97 95 96 05/03/20 20:02 05/03/20 20:03 05/03/20 20:08 Temperature Pulse Rate 80 76 75 Respiratory Rate 20 28 H 24 H Blood Pressure Pulse Oximetry 94 05/03/20 22:00 05/03/20 22:58 05/04/20 00:00 Temperature 36.5 C Pulse Rate 77 74 76 Respiratory Rate 29 H 23 H 24 H Blood Pressure 98/66 L 113/73 Pulse Oximetry 99 97 96 05/04/20 01:58 05/04/20 01:59 05/04/20 02:00 Temperature Pulse Rate 76 76 86 Respiratory Rate 22 H 22 H 22 H Blood Pressure 94/44 L Pulse Oximetry 96 96 05/04/20 02:05 05/04/20 04:00 05/04/20 05:05 Temperature 35.9 C L Pulse Rate 80 76 75 Respiratory Rate 23 H 23 H 21 H Blood Pressure 110/56 L Pulse Oximetry 96 98 05/04/20 06:00 05/04/20 07:43 05/04/20 07:51 Temperature Pulse Rate 75 82 82 Respiratory Rate 22 H 22 H 23 H Blood Pressure 119/59 L Pulse Oximetry 98 100 05/04/20 08:00 05/04/20 08:28 05/04/20 08:45 Temperature 36.4 C L Pulse Rate 82 Respiratory Rate 22 H Blood Pressure 105/70 Pulse Oximetry 99 98 99 05/04/20 10:00 05/04/20 10:05 05/04/20 10:27 Temperature Pulse Rate 77 Respiratory Rate 22 H Blood Pressure 114/59 L Pulse Oximetry 94 97 96 Intake/Output Intake/Output: Intake & Output 05/01/20 05/02/20 05/03/20 05/04/20 23:59 23:59 23:59 23:59 Intake Total 50 1600 950 Output Total 1550 175 Balance 50 50 775 Meds/Results Medications: Active Medications Generic Name Dose Route Start Last Admin Trade Name Freq PRN Reason Stop Dose Admin Albuterol 5 mg 05/03/20 08:00 05/04/20 07:39 Albuterol Sulfate Neb 2.5 Mg/0.5 Ml Inh INHALATION 5 mg Q6HRT JR Administration Atorvastatin Calcium 10 mg 05/03/20 09:00 05/04/20 09:17 Atorvastatin 10 Mg Tablet PO 10 mg DAILY JR Administration Dexamethasone Sodium Phosphate 6 mg 05/04/20 09:00 05/04/20 09:19 Dexamethasone Sod Phos Inj 4 Mg/Ml Vial IV PUSH 05/13/20 09:01 6 mg DAILY JR Administration Dextrose 12.5 gm 05/02/20 23:43 Dextrose 50% 25 Gm/50 Ml Syringe IV PUSH PRN PRN Hypoglycemia Protocol Enoxaparin Sodium 30 mg 05/03/20 03:25 05/04/20 06:11 Enoxaparin 30 Mg/0.3 Ml Syringe SUB-Q 30 mg 0600,1800 JR Administration Enoxaparin Sodium 100 mg 05/03/20 03:25 05/04/20 06:10 Enoxaparin 100 Mg/Ml Syringe SUB-Q 100 mg 0600,1800 JR Administration Glucagon 1 mg 05/02/20 23:43 Glucagon For Inj 1 Mg Vial IM PRN PRN Hypoglycemia Protocol Glucose 15 gm 05/02/20 23:43 Glucose Oral Gel 15 Gm Of Glucse In 37.5 Gm Tube PO PRN PRN Hypoglycemia Protocol Dextrose 1,000 mls @ 100 mls/hr 05/02/20 23:43 Dextrose 5% 1,000 Ml IVPB PRN PRN Hypoglycemia Protocol Ceftriaxone Sodium/Dextrose 1 gm in 50 mls @ 100 mls/hr 05/03/20 06:00 05/04/20 06:37 Rocephin 1 Gm/D5w 50 Ml IVPB Infused Q24H JR Infusion Azithromycin 500 mg in 250 m
[2020-05-04 12:08] LABS: Anion Gap 2 mmol/L (8-16); Blood Urea Nitrogen 34 mg/dL (7-17); Calcium 8.2 mg/dL (8.4-10.2); Carbon Dioxide 26 mmol/L (22-30); Chloride 109 mmol/L (98-107); Estimated CRCL calculation 67 ml/min; Estimated Glomerular Filt Rate > 60; Glucose 151 mg/dL (65-105); Lactate Dehydrogenase 607 U/L (313-618); Sodium 137 mmol/L (137-145)
[2020-05-04 12:37] LABS: CRP 13.4 mg/dL (<1.0)
--- NOTE | 2020-05-04 14:00 | PM.IMPN ---
Progress Note: A&P Assessment and Plan (1) NSTEMI (non-ST elevated myocardial infarction): Code(s): I21.4 - Non-ST elevation (NSTEMI) myocardial infarction Status: Acute Assessment and Plan: Likely myocarditis Cardiology note reviewed Follow Cardiology recs (2) Acute respiratory failure with hypoxia and hypercapnia: Code(s): J96.01 - Acute respiratory failure with hypoxia; J96.02 - Acute respiratory failure with hypercapnia Status: Acute Assessment and Plan: Last night was on BiPAP Int/CC note appreciated Airvo Breathing treatments (3) Type 2 diabetes mellitus with hyperglycemia: Qualifiers: Diabetes mellitus assisted insulin use: with assisted use Qualified Code(s): E11.65 - Type 2 diabetes mellitus with hyperglycemia; Z79.4 - compass operator (current) use of insulin Code(s): E11.65 - Type 2 diabetes mellitus with hyperglycemia Status: Acute Assessment and Plan: NPO Accu checks q 6 hours while NPO (4) Tobacco abuse disorder: Code(s): Z72.0 - Tobacco use Status: Acute Assessment and Plan: History of tobacco use (5) Acute respiratory failure due to COVID-19: Code(s): U07.1 - COVID-19; J96.00 - Acute respiratory failure, unspecified whether with hypoxia or hypercapnia Status: Acute Assessment and Plan: Remdesivir/Dexamethasone Convalescent plasma (6) Asthma with exacerbation: Qualifiers: Asthma persistence: persistent Asthma severity: severe Qualified Code(s): J45.51 - Severe persistent asthma with (acute) exacerbation Code(s): J45.901 - Unspecified asthma with (acute) exacerbation Status: Acute Assessment and Plan: Breathing treatments. Subjective Date/time seen: 05/04/20 14:00 Patient states that she feels better. Review of Systems Review of Systems: Narrative: Currently on BiPAP ROS unobtainable: Yes unobtainable due to medical condition Exam Narrative: Exam Narrative: Lying in bed. BiPAP is on. Const: General: comfortable, no acute distress, alert, awake and Physically active Nutritional Appearance: overweight Orientation/consciousness: patient oriented x3 HENMT: Head: normal to inspection and normocephalic Ears: hearing grossly normal bilaterally General nose exam: Normal external nose present Face and sinus: normal facial exam Eyes: General: appearance normal, both eyes and all related structures Pupils: Equal, round and reactive pupils present EOM: EOMs intact bilaterally Neck: Neck: no lymphadenopathy, supple and no JVD Resp: Auscultation: diminished lung sounds Cardio: Rate: regular rate Rhythm: regular rhythm GI: GI Palp: Yes Soft to palpation and Yes No hepatosplenomegaly present Skin: Rashes: no rashes Neuro: General: patient oriented x3 and CN's II-XI intact bilaterally Cranial nerves: Yes CN's II-XII intact bilaterally and Yes Equal, round and reactive pupils present Cognition (Neuro): normal cognition Speech: normal speech Motor exam (neuro): 5/5 motor strength present throughout Extrem: General: no pedal edema Objective Data Vital Signs Vital Signs: Vital Signs - 24 hr 05/03/20 14:38 05/03/20 14:47 05/03/20 15:42 Temperature 97.8 F Pulse Rate 77 88 76 Respiratory Rate 26 H 23 H 20 Blood Pressure 119/79 Pulse Oximetry 94 95 05/03/20 17:05 05/03/20 17:06 05/03/20 20:00 Temperature 98.1 F 96.3 F L Pulse Rate 73 78 87 Respiratory Rate 28 H 31 H 30 H Blood Pressure 95/49 L 102/86 Pulse Oximetry 97 95 96 05/03/20 20:02 05/03/20 20:03 05/03/20 20:08 Temperature Pulse Rate 80 76 75 Respiratory Rate 20 28 H 24 H Blood Pressure Pulse Oximetry 94 05/03/20 22:00 05/03/20 22:58 05/04/20 00:00 Temperature 97.7 F Pulse Rate 77 74 76 Respiratory Rate 29 H 23 H 24 H Blood Pressure 98/66 L 113/73 Pulse Oximetry 99 97 96 05/04/20 01:58 05/04/20 01:59 05/04/20 02:00 Temperature Pulse Rate 76 76
[2020-05-04] MEDS: INSULIN ASPART (*BKC) 100 UNITS/ML SUB-Q (17:25)
[2020-05-04 18:33] LABS: Glucose Point of Care 237 (65-105)
[2020-05-04 18:33] LABS: Glucose Point of Care 181 (65-105)
[2020-05-04] MEDS: SODIUM CHLORIDE 0.9% IV 1,000 ML 30 ML IV CONT (19:58)
[2020-05-04] MEDS: INSULIN GLARGINE (*BKC) 100 UNITS/ML 40 UNITS SUB-Q (19:59)
[2020-05-04 23:29] LABS: Glucose Point of Care 228 (65-105)
[2020-05-05] VITALS (23 sets, daily range): BP systolic 118–162; BP diastolic 64–83; PULSE 67–88; RESP 18–27; TEMP 35.6–36.6; O2SAT 95–100
[2020-05-05] MEDS: guaiFENesin 12 HR 600 MG TABCR PO ×3 (00:19→20:22)
[2020-05-05] MEDS: ACETAMINOPHEN 325 MG TABLET 650 MG PO (00:19)
[2020-05-05] MEDS: ALBUTEROL SULFATE NEB 2.5 MG/0.5 ML INH 5 MG INHALATION ×4 (03:02→20:31)
[2020-05-05] MEDS: IPRATROPIUM BR 0.02% INH SOLN 0.5 MG/2.5 ML VIAL INHALATION ×4 (03:02→20:32)
[2020-05-05 04:39] LABS: Hematocrit 37.6 % (37.0-47.0); Hemoglobin 11.9 g/dL (12.0-15.0); Immature Platelet Fraction Pct 3.9 % (0.9-11.2); Mean Corpuscular HGB Conc 31.6 g/dl (32-36); Mean Corpuscular Hemoglobin 29.7 pg (26-34); Mean Corpuscular Volume 93.8 fl (80-100); Mean Platelet Volume 10.6 fl (7.4-10.4); Platelet Count Result 137 k/mm3 (150-375); Red Blood Count 4.01 M/mm3 (4.2-5.4); Red Cell Distribution Width 13.2 % (11.5-14.5); White Blood Count 7.6 K/mm3 (4.5-10.0)
[2020-05-05 04:53] LABS: Alanine Aminotransferase 37 U/L (4-35); Albumin Level 2.9 g/dL (3.5-5.1); Alkaline Phosphatase 69 U/L (38-126); Anion Gap 2 mmol/L (8-16); Aspartate Amino Transferase 58 U/L (14-36); Bilirubin,Total 0.3 mg/dL (0.2-1.3); Blood Urea Nitrogen 29 mg/dL (7-17); Calcium 8.2 mg/dL (8.4-10.2); Carbon Dioxide 26 mmol/L (22-30); Chloride 111 mmol/L (98-107); Estimated CRCL calculation 75 ml/min; Estimated Glomerular Filt Rate > 60; Glucose 120 mg/dL (65-105); Magnesium 2.1 mg/dL (1.6-2.3); Potassium 4.2 mmol/L (3.4-5.0); Sodium 139 mmol/L (137-145)
[2020-05-05] MEDS: ENOXAPARIN 30 MG/0.3 ML SYRINGE SUB-Q (06:05)
[2020-05-05] MEDS: ENOXAPARIN 100 MG/ML SYRINGE SUB-Q (06:05)
[2020-05-05] MEDS: CENTRAL LINE FLUSH 10 ML IV PUSH ×3 (06:06→20:22)
--- NOTE | 2020-05-05 08:06 | WPDINTPN ---
Progress Note: A&P Assessment and Plan (1) Acute respiratory failure with hypoxia and hypercapnia: Code(s): J96.01 - Acute respiratory failure with hypoxia; J96.02 - Acute respiratory failure with hypercapnia Status: Acute Assessment and Plan: Acute Respiratory failure secondary to COVID-19, ? questionable secondary bacterial pneumonia, baseline asthma/COPD, obesity hypoventilation syndrome CTA 2 - IMPRESSION: Bilateral multi focal pneumonia No apparent pulmonary embolism CXR today 1. Diffuse lung disease with slight improvement, consistent with pneumonia. 2. Stable small right pleural effusion Patient currently on BiPAP 14/ in 35% FiO2 She tolerated AirVo yesterday during the day. Will continue with high-flow nasal cannula during the day and BiPAP at night/PRN as patient does have element of hypercarbia and is morbidly obese Continue Bronchodilators Continue antibiotics for empiric bacterial coverage = Rocephin and azithromycin. Cultures negative till now Patient is on dexamethasone for COVID-19 which should cover for asthma/COPD (2) Asthma with exacerbation: Qualifiers: Asthma persistence: persistent Asthma severity: severe Qualified Code(s): J45.51 - Severe persistent asthma with (acute) exacerbation Code(s): J45.901 - Unspecified asthma with (acute) exacerbation Status: Acute Assessment and Plan: Breathing treatments Systemic steroids (3) Acute respiratory failure due to COVID-19: Code(s): U07.1 - COVID-19; J96.00 - Acute respiratory failure, unspecified whether with hypoxia or hypercapnia Status: Acute Assessment and Plan: SARS-CoV-2 PCR positive Patient is in Airborne, Droplet and Contact Isolation Continue dexamethasone, remdesivir Convalescent Plasma is already ordered Incentive spirometry and up in chair to minimize atelectasis Follow inflammatory periodically (4) Type 2 diabetes mellitus with hyperglycemia: Qualifiers: Diabetes mellitus shelter insulin use: with termite exterminator use Qualified Code(s): E11.65 - Type 2 diabetes mellitus with hyperglycemia; Z79.4 - assisted (current) use of insulin Code(s): E11.65 - Type 2 diabetes mellitus with hyperglycemia Status: Acute Assessment and Plan: Diabetic Sliding scale insulin and Lantus (5) NSTEMI (non-ST elevated myocardial infarction): Code(s): I21.4 - Non-ST elevation (NSTEMI) myocardial infarction Status: Acute Assessment and Plan: Patient seen by Cardiology. Recommend conservative management at this time and no plan for angiogram Continue aspirin, statin, lisinopril. Not on beta-therese due to asthma/COPD Troponin level is now trending downward. Will discontinue therapeutic dose Lovenox and switched to intermediate dose for DVT prophylaxis ECHO Summary 1. Complete two-dimensional, color flow and Doppler transthoracic echocardiogram is performed. 2. Left ventricular systolic function is normal, estimated at 55%. 3. There is akinesis of the mid inferoseptum and hypokinesis of the mid anteroseptum. 4. There is mildly increased left ventricular wall thickness. 5. Left atrial chamber dimension is moderately enlarged. 6. There is no aortic valve stenosis. 7. No pulmonary hypertension, estimated pulmonary arterial systolic pressure is 28 mmHg. Additional Plan DVT prophylaxis -on Lovenox 40 mg subcu q.12 hours Stress ulcer prophylaxis -PPI Nutrition -diabetic diet Consult PT OT, IS and up in chair Code Status - Full Code I spoke patient in detail and she is willing to go on mechanical ventilation if needed and requests to be full code Total Critical Care Time - 30 minutes Due to a high probability of clinically significant, life threatening deterioration, the patient required my highest level of preparedness to intervene emergently and I personally spent this critical care time directly and personally managing the patient. This critical ca
[2020-05-05] MEDS: DEXAMETHASONE SOD PHOS INJ 4 MG/ML VIAL 6 MG IV PUSH (09:34)
[2020-05-05] MEDS: ATORVASTATIN 10 MG TABLET PO (09:35)
[2020-05-05] MEDS: MONTELUKAST SODIUM 10 MG TABLET PO (09:35)
[2020-05-05] MEDS: REMDESIVIR 100 MG/NS 250 ML 100 MG/250 ML BAG 250 MG IVPB (09:35)
[2020-05-05] MEDS: lisinopriL 5 MG TABLET PO (09:35)
[2020-05-05] MEDS: MICONAZOLE NITRATE 2% CREAM 30 GM TUBE 1 APPLIC TOPICAL (09:36)
[2020-05-05 12:10] LABS: Glucose Point of Care 166 (65-105)
[2020-05-05 12:10] LABS: Glucose Point of Care 211 (65-105)
[2020-05-05] MEDS: INSULIN ASPART (*BKC) 100 UNITS/ML SUB-Q ×2 (13:09→18:15)
[2020-05-05] MEDS: INSULIN ASPART (*BKC) 100 UNITS/ML 10 UNITS SUB-Q ×2 (13:09→18:15)
--- NOTE | 2020-05-05 13:47 | PM.IMPN ---
Progress Note: A&P Assessment and Plan (1) Acute respiratory failure due to COVID-19: Code(s): U07.1 - COVID-19; J96.00 - Acute respiratory failure, unspecified whether with hypoxia or hypercapnia Status: Acute Assessment and Plan: On BiPAP at night time HFNC/Airvo during day time Doing well Continue to monitor Remdesivir/Dexamethasone Appreciate Int/CC note (2) Acute respiratory failure with hypoxia and hypercapnia: Code(s): J96.01 - Acute respiratory failure with hypoxia; J96.02 - Acute respiratory failure with hypercapnia Status: Acute Assessment and Plan: Improved (3) Type 2 diabetes mellitus with hyperglycemia: Qualifiers: Diabetes mellitus intermediate designer insulin use: with shelter use Qualified Code(s): E11.65 - Type 2 diabetes mellitus with hyperglycemia; Z79.4 - intermodal dispatcher (current) use of insulin Code(s): E11.65 - Type 2 diabetes mellitus with hyperglycemia Status: Acute Assessment and Plan: ISS as needed (4) Acute hypercapnic respiratory failure: Code(s): J96.02 - Acute respiratory failure with hypercapnia Status: Acute Assessment and Plan: Improved (5) NSTEMI (non-ST elevated myocardial infarction): Code(s): I21.4 - Non-ST elevation (NSTEMI) myocardial infarction Status: Acute Assessment and Plan: Cardiology following Medical management for the moment (6) Asthma with exacerbation: Qualifiers: Asthma persistence: persistent Asthma severity: severe Qualified Code(s): J45.51 - Severe persistent asthma with (acute) exacerbation Code(s): J45.901 - Unspecified asthma with (acute) exacerbation Status: Acute Assessment and Plan: Improved (7) Tobacco abuse disorder: Code(s): Z72.0 - Tobacco use Status: Acute Assessment and Plan: Nicotine patch as needed Subjective Date/time seen: 05/05/20 13:47 I feel well Review of Systems Review of Systems: ROS unobtainable: Yes unobtainable due to medical condition Exam Narrative: Exam Narrative: Sitting in chair. Const: General: comfortable, no acute distress, alert, awake and Physically active Nutritional Appearance: overweight Orientation/consciousness: patient oriented x3 HENMT: Head: normocephalic Ears: hearing grossly normal bilaterally General nose exam: Normal external nose present Face and sinus: normal facial exam Eyes: General: appearance normal, both eyes and all related structures Pupils: Equal, round and reactive pupils present EOM: EOMs intact bilaterally Neck: Neck: no lymphadenopathy, supple and no JVD Resp: Auscultation: clear to auscultation bilaterally and diminished lung sounds Cardio: Jugular venous distension: no JVD Rate: regular rate Rhythm: regular rhythm GI: GI Palp: Yes Soft to palpation and Yes No hepatosplenomegaly present Skin: General skin exam: normal color Rashes: no rashes Neuro: General: patient oriented x3 and CN's II-XI intact bilaterally Cranial nerves: Yes CN's II-XII intact bilaterally and Yes Equal, round and reactive pupils present Cognition (Neuro): normal cognition Motor exam (neuro): 5/5 motor strength present throughout Extrem: General: no pedal edema Objective Data Vital Signs Vital Signs: Vital Signs - 24 hr 05/04/20 13:49 05/04/20 13:59 05/04/20 14:00 Temperature Pulse Rate 80 77 78 Respiratory Rate 22 H 24 H 22 H Blood Pressure 158/88 H Pulse Oximetry 97 05/04/20 16:00 05/04/20 17:30 05/04/20 17:39 Temperature 97.3 F L 97.3 F L 97.8 F Pulse Rate 79 79 85 Respiratory Rate 21 H 21 H 22 H Blood Pressure 159/85 H 159/85 H 153/79 H Pulse Oximetry 96 96 95 05/04/20 18:00 05/04/20 18:58 05/04/20 19:56 Temperature 97.5 F L 98.1 F 97.6 F Pulse Rate 74 80 80 Respiratory Rate 18 28 H 24 H Blood Pressure 154/69 H 153/72 H 139/74 Pulse Oximetry 98 96 99 05/04/20 20:00 05/04/20 20:58 05/04/20 21:00 Temperatur
[2020-05-05 16:16] LABS: Glucose Point of Care 265 (65-105)
[2020-05-05] MEDS: ENOXAPARIN 40 MG/0.4 ML SYRINGE SUB-Q (18:15)
[2020-05-05] MEDS: INSULIN GLARGINE (*BKC) 100 UNITS/ML 40 UNITS SUB-Q (20:25)
[2020-05-05] MEDS: SODIUM CHLORIDE 0.9% IV 1,000 ML 30 ML IV CONT (20:26)
[2020-05-06] VITALS (17 sets, daily range): BP systolic 150–166; BP diastolic 77–90; PULSE 61–87; RESP 14–25; TEMP 36.1–37.2; O2SAT 96–98
[2020-05-06] MEDS: IPRATROPIUM BR 0.02% INH SOLN 0.5 MG/2.5 ML VIAL INHALATION ×4 (02:42→20:43)
[2020-05-06] MEDS: ALBUTEROL SULFATE NEB 2.5 MG/0.5 ML INH 5 MG INHALATION ×4 (02:42→20:42)
[2020-05-06 05:04] LABS: Glucose Point of Care 289 (65-105)
[2020-05-06] MEDS: ENOXAPARIN 40 MG/0.4 ML SYRINGE SUB-Q ×2 (05:07→17:17)
[2020-05-06] MEDS: CENTRAL LINE FLUSH 10 ML IV PUSH ×3 (05:07→20:52)
[2020-05-06 05:26] LABS: Hemoglobin 11.3 g/dL (12.0-15.0); Mean Corpuscular HGB Conc 31.4 g/dl (32-36); Mean Corpuscular Hemoglobin 29.3 pg (26-34); Mean Corpuscular Volume 93.3 fl (80-100); Mean Platelet Volume 10.6 fl (7.4-10.4); Platelet Count Result 144 k/mm3 (150-375); Red Blood Count 3.86 M/mm3 (4.2-5.4); Red Cell Distribution Width 13.2 % (11.5-14.5); White Blood Count 3.3 K/mm3 (4.5-10.0)
[2020-05-06 05:37] LABS: D Dimer 0.45 ug/mL (<0.48)
[2020-05-06 05:42] LABS: Alanine Aminotransferase 40 U/L (4-35); Albumin Level 2.8 g/dL (3.5-5.1); Alkaline Phosphatase 62 U/L (38-126); Anion Gap 1 mmol/L (8-16); Aspartate Amino Transferase 44 U/L (14-36); Bilirubin,Total 0.2 mg/dL (0.2-1.3); Blood Urea Nitrogen 22 mg/dL (7-17); Calcium 8.1 mg/dL (8.4-10.2); Carbon Dioxide 26 mmol/L (22-30); Chloride 112 mmol/L (98-107); Estimated CRCL calculation 99 ml/min; Estimated Glomerular Filt Rate > 60; Glucose 159 mg/dL (65-105); Lactate Dehydrogenase 693 U/L (313-618); Magnesium 1.9 mg/dL (1.6-2.3); Potassium 3.8 mmol/L (3.4-5.0); Sodium 139 mmol/L (137-145)
--- NOTE | 2020-05-06 08:52 | WPDINTPN ---
Progress Note: A&P Assessment and Plan (1) Acute respiratory failure with hypoxia and hypercapnia: Code(s): J96.01 - Acute respiratory failure with hypoxia; J96.02 - Acute respiratory failure with hypercapnia Status: Acute Assessment and Plan: Acute Respiratory failure secondary to COVID-19, ? questionable secondary bacterial pneumonia, baseline asthma/COPD, obesity hypoventilation syndrome CTA 05/03 - IMPRESSION: Bilateral multi focal pneumonia No apparent pulmonary embolism CXR today 1. Diffuse lung disease with slight improvement, consistent with pneumonia. 2. Stable small right pleural effusion Her respiratory status has significantly improved and she is down to nasal cannula. She saturated well and slept well on nasal cannula I will continue with nasal cannula during the day and BiPAP at night/PRN as patient does have element of hypercarbia and is morbidly obese Continue Bronchodilators Continue antibiotics for empiric bacterial coverage Rocephin and azithromycin. Cultures negative till now Patient is on dexamethasone for COVID-19 which should cover for asthma/COPD (2) Asthma with exacerbation: Qualifiers: Asthma persistence: persistent Asthma severity: severe Qualified Code(s): J45.51 - Severe persistent asthma with (acute) exacerbation Code(s): J45.901 - Unspecified asthma with (acute) exacerbation Status: Acute Assessment and Plan: Breathing treatments Systemic steroids (3) Acute respiratory failure due to COVID-19: Code(s): U07.1 - COVID-19; J96.00 - Acute respiratory failure, unspecified whether with hypoxia or hypercapnia Status: Acute Assessment and Plan: SARS-CoV-2 PCR positive Patient is in Airborne, Droplet and Contact Isolation Continue dexamethasone, remdesivir Convalescent Plasma Incentive spirometry and up in chair to minimize atelectasis Follow inflammatory periodically (4) Type 2 diabetes mellitus with hyperglycemia: Qualifiers: Diabetes mellitus longterm insulin use: with training development director use Qualified Code(s): E11.65 - Type 2 diabetes mellitus with hyperglycemia; Z79.4 - intermediate (current) use of insulin Code(s): E11.65 - Type 2 diabetes mellitus with hyperglycemia Status: Acute Assessment and Plan: Diabetic Sliding scale insulin and Lantus (5) NSTEMI (non-ST elevated myocardial infarction): Code(s): I21.4 - Non-ST elevation (NSTEMI) myocardial infarction Status: Acute Assessment and Plan: Patient seen by Cardiology. Recommend conservative management at this time and no plan for angiogram Continue aspirin, statin, lisinopril. Not on beta-therese due to asthma/COPD Troponin level is now trending downward. therapeutic dose Lovenox was switched to intermediate dose for DVT prophylaxis ECHO Summary 1. Complete two-dimensional, color flow and Doppler transthoracic echocardiogram is performed. 2. Left ventricular systolic function is normal, estimated at 55%. 3. There is akinesis of the mid inferoseptum and hypokinesis of the mid anteroseptum. 4. There is mildly increased left ventricular wall thickness. 5. Left atrial chamber dimension is moderately enlarged. 6. There is no aortic valve stenosis. 7. No pulmonary hypertension, estimated pulmonary arterial systolic pressure is 28 mmHg. Additional Plan DVT prophylaxis -on Lovenox 40 mg subcu q.12 hours. Her D-dimer level has normalized Stress ulcer prophylaxis -PPI Nutrition -diabetic diet Continue PT OT, IS and up in chair Code Status - Full Code DC Archuleta catheter, transfer out of ICU today Subjective Date/time seen: 05/06/20 0730 Patient did not wear BiPAP last night and slept and on 2 L nasal cannula. This morning she feels better than before and feels her breathing is better although she still feels short of breath on exertion. Her cough is still present. Review of system is positive for swelling in lower legs and int
[2020-05-06] MEDS: INSULIN ASPART (*BKC) 100 UNITS/ML 10 UNITS SUB-Q ×3 (09:02→17:21)
[2020-05-06] MEDS: MONTELUKAST SODIUM 10 MG TABLET PO (09:03)
[2020-05-06] MEDS: ATORVASTATIN 10 MG TABLET PO (09:03)
[2020-05-06] MEDS: guaiFENesin 12 HR 600 MG TABCR PO ×2 (09:03→20:51)
[2020-05-06] MEDS: lisinopriL 5 MG TABLET PO (09:04)
[2020-05-06] MEDS: MICONAZOLE NITRATE 2% CREAM 30 GM TUBE 1 APPLIC TOPICAL (09:04)
[2020-05-06] MEDS: DEXAMETHASONE SOD PHOS INJ 4 MG/ML VIAL 6 MG IV PUSH (09:04)
[2020-05-06 09:47] LABS: Troponin I 0.884 ng/mL (0.000-0.034)
[2020-05-06] MEDS: REMDESIVIR 100 MG/NS 250 ML 100 MG/250 ML BAG 250 MG IVPB (10:07)
--- NOTE | 2020-05-06 12:06 | PM.IMPN ---
Progress Note: A&P Assessment and Plan (1) Acute respiratory failure with hypoxia and hypercapnia: Code(s): J96.01 - Acute respiratory failure with hypoxia; J96.02 - Acute respiratory failure with hypercapnia Status: Acute Assessment and Plan: Improved Continue NC during day time BiPAP at night time Appreciate Int/CC note (2) NSTEMI (non-ST elevated myocardial infarction): Code(s): I21.4 - Non-ST elevation (NSTEMI) myocardial infarction Status: Acute Assessment and Plan: Stable Medical management for now Further work up and treatment as per Cardiology (3) Suspected COVID-19 virus infection: Code(s): Z20.822 - Contact with and (suspected) exposure to COVID-19 Status: Acute Assessment and Plan: On Remdesivir and Dexamethasone Rocephin and Zithromax for added coverage as patient comes from the community Convalescent plasma has been infused Supportive care (4) Acute hypercapnic respiratory failure: Code(s): J96.02 - Acute respiratory failure with hypercapnia Status: Acute Assessment and Plan: Improved Continue oxygen supplementation by NC during the day and BiPAP at night time (5) Type 2 diabetes mellitus with hyperglycemia: Qualifiers: Diabetes mellitus prison insulin use: with terminal supervisor use Qualified Code(s): E11.65 - Type 2 diabetes mellitus with hyperglycemia; Z79.4 - predatory animal exterminator (current) use of insulin Code(s): E11.65 - Type 2 diabetes mellitus with hyperglycemia Status: Acute Assessment and Plan: Carb consistent diet. ISS as needed Accu checks ACHS Subjective Date/time seen: 05/06/20 12:06 Patient states that she feels much better today. Review of Systems Review of Systems: Narrative: No new issues. Constitutional: Comments: no fevers, no rigors, no chills. Cardiovascular: Comments: no chest pain, no orthopnea, no pnd. Respiratory: Comments: mild sob. Gastrointestinal: Comments: no n/v/abdominal pain Genitourinary: Comments: Archuleta in Musculoskeletal: Comments: no joint pain. Integumentary/Breasts: Comments: no rashes Neurologic: Comments: no sensory motor deficit Hematologic/Lymphatic: Comments: m LAP Exam Narrative: Exam Narrative: Sitting in chair Const: Other: no fevers, no rigors, no chills. HENMT: Head: normal to inspection and normocephalic Ears: hearing grossly normal bilaterally General nose exam: Normal external nose present Face and sinus: normal facial exam Eyes: Pupils: Equal, round and reactive pupils present EOM: EOMs intact bilaterally Neck: Neck: no lymphadenopathy, supple and no JVD Resp: Effort & Inspection: normal respiratory effort and able to speak in complete sentences Auscultation: clear to auscultation bilaterally and diminished lung sounds Cardio: Jugular venous distension: no JVD Rate: regular rate Rhythm: regular rhythm GI: Inspection: Pannus present and obesity GI Palp: Yes Soft to palpation and Yes No hepatosplenomegaly present Skin: Rashes: no rashes Neuro: General: patient oriented x3 and CN's II-XI intact bilaterally Cranial nerves: Yes CN's II-XII intact bilaterally and Yes Bilaterally intact EOM present Cognition (Neuro): normal cognition Speech: normal speech Motor exam (neuro): 5/5 motor strength present throughout Extrem: General: other (B/L LE edema) Objective Data Vital Signs Vital Signs: Vital Signs - 24 hr 05/05/20 14:00 05/05/20 14:01 05/05/20 14:11 Temperature Pulse Rate 74 78 77 Respiratory Rate 22 H 18 18 Blood Pressure 140/79 Pulse Oximetry 96 96 05/05/20 16:00 05/05/20 18:00 05/05/20 20:00 Temperature 96.3 F L Pulse Rate 71 78 81 Respiratory Rate 22 H 21 H 18 Blood Pressure 147/68 H 162/80 H 150/70 H Pulse Oximetry 96 95 97 05/05/20 20:32 05/05/20 20:33 05/05/20 20:40 Temperature Pulse Rate 84 77 70 Respiratory Rate 22 H 20 20 Blood Pressure Pulse Oximetry 97 05/05/20
[2020-05-06] MEDS: INSULIN ASPART (*BKC) 100 UNITS/ML SUB-Q ×2 (13:08→17:21)
[2020-05-06 14:00] LABS: Glucose Point of Care 233 (65-105)
[2020-05-06] MEDS: hydrALAZINE HCL 20 MG/ML VIAL 10 MG IV PUSH (17:18)
[2020-05-06 17:29] LABS: Glucose Point of Care 249 (65-105)
[2020-05-06] MEDS: INSULIN GLARGINE (*BKC) 100 UNITS/ML 40 UNITS SUB-Q (20:51)
[2020-05-06 20:58] LABS: Glucose Point of Care 216 (65-105)
[2020-05-07] VITALS (15 sets, daily range): BP systolic 133–161; BP diastolic 63–89; PULSE 62–98; RESP 18–28; TEMP 36.2–37.1; O2SAT 94–99
[2020-05-07] MEDS: IPRATROPIUM BR 0.02% INH SOLN 0.5 MG/2.5 ML VIAL INHALATION ×4 (02:20→19:40)
[2020-05-07] MEDS: ALBUTEROL SULFATE NEB 2.5 MG/0.5 ML INH 5 MG INHALATION ×4 (02:20→19:40)
[2020-05-07] MEDS: hydrALAZINE HCL 20 MG/ML VIAL 10 MG IV PUSH ×2 (05:07→21:00)
[2020-05-07] MEDS: ENOXAPARIN 40 MG/0.4 ML SYRINGE SUB-Q ×2 (05:07→17:42)
[2020-05-07] MEDS: CENTRAL LINE FLUSH 10 ML IV PUSH ×3 (05:07→20:58)
[2020-05-07 05:20] LABS: Hematocrit 38.1 % (37.0-47.0); Hemoglobin 12.1 g/dL (12.0-15.0); Mean Corpuscular HGB Conc 31.8 g/dl (32-36); Mean Corpuscular Hemoglobin 29.6 pg (26-34); Mean Corpuscular Volume 93.2 fl (80-100); Mean Platelet Volume 10.7 fl (7.4-10.4); Platelet Count Result 170 k/mm3 (150-375); Red Blood Count 4.09 M/mm3 (4.2-5.4); White Blood Count 4.9 K/mm3 (4.5-10.0)
[2020-05-07 05:32] LABS: Alanine Aminotransferase 54 U/L (4-35); Albumin Level 2.8 g/dL (3.5-5.1); Alkaline Phosphatase 55 U/L (38-126); Anion Gap 0 mmol/L (8-16); Aspartate Amino Transferase 54 U/L (14-36); Bilirubin,Total 0.3 mg/dL (0.2-1.3); Blood Urea Nitrogen 21 mg/dL (7-17); Calcium 8.2 mg/dL (8.4-10.2); Carbon Dioxide 28 mmol/L (22-30); Chloride 110 mmol/L (98-107); Estimated CRCL calculation 99 ml/min; Estimated Glomerular Filt Rate > 60; Glucose 125 mg/dL (65-105); Magnesium 1.8 mg/dL (1.6-2.3); Potassium 3.8 mmol/L (3.4-5.0); Sodium 138 mmol/L (137-145)
[2020-05-07 05:33] LABS: Alveolar/Arterial O2 Gradient 95.3 mmHg; Base Excess ABG -1.5 mEq/l (+/-2.0); Carboxyhemoglobin 0.3 % THb (0-2.0); Fractional Inspired Oxygen 35 %; HCO3 ABG 23.9 mEq/l (22.0-26.0); Methemoglobin ABG 0.3 %THb (0-1.5); Oxygen Content ABG 19.6 %vol (16.0-22.0); Oxygen Saturation ABG 97.6 % (95.0-100.0); Oxyhemoglobin 96.8 % THb (90.0-100.0); PCO2 ABG 42.8 mmHg (35.0-45.0); PO2 ABG 104.5 mmHg (80.0-100.0); PO2 FiO2 Ratio Arterial Blood 2.99 %; Reduced Hemoglobin 2.6 %THb (0-5.0); Total Hemoglobin 14.3 g/dL (12.0-18.0); pH ABG 7.365 (7.350-7.450)
[2020-05-07 05:34] LABS: Device NON-INVASIVE VENT; Modified Allen's Test Pass; Non-Invasive Expiratory Pressure 8 CMH2O; Non-Invasive Inspiratory Pressure 14 CMH2O; Non-Invasive Vent Rate 12 /MIN; Site Drawn RIGHT RADIAL
[2020-05-07 06:53] LABS: Troponin I 0.593 ng/mL (0.000-0.034)
[2020-05-07] MEDS: INSULIN ASPART (*BKC) 100 UNITS/ML 10 UNITS SUB-Q ×3 (08:45→16:52)
[2020-05-07] MEDS: guaiFENesin 12 HR 600 MG TABCR PO ×2 (08:47→20:56)
[2020-05-07] MEDS: ATORVASTATIN 10 MG TABLET PO (08:47)
[2020-05-07] MEDS: DEXAMETHASONE SOD PHOS INJ 4 MG/ML VIAL 6 MG IV PUSH (08:47)
[2020-05-07] MEDS: lisinopriL 5 MG TABLET PO (08:48)
[2020-05-07] MEDS: MONTELUKAST SODIUM 10 MG TABLET PO (08:48)
[2020-05-07] MEDS: MICONAZOLE NITRATE 2% CREAM 30 GM TUBE 1 APPLIC TOPICAL (08:48)
[2020-05-07 09:01] LABS: Glucose Point of Care 160 (65-105)
[2020-05-07] MEDS: REMDESIVIR 100 MG/NS 250 ML 100 MG/250 ML BAG 250 MG IVPB (09:52)
[2020-05-07] MEDS: INSULIN ASPART (*BKC) 100 UNITS/ML SUB-Q (12:42)
[2020-05-07 12:51] LABS: Glucose Point of Care 243 (65-105)
[2020-05-07 16:52] LABS: Glucose Point of Care 120 (65-105)
[2020-05-07] MEDS: INSULIN GLARGINE (*BKC) 100 UNITS/ML 40 UNITS SUB-Q (20:56)
[2020-05-07] MEDS: SODIUM CHLORIDE 0.9% IV 1,000 ML 30 ML IV CONT (20:58)
[2020-05-07 21:09] LABS: Glucose Point of Care 173 (65-105)
[2020-05-07] MEDS: ACETAMINOPHEN 325 MG TABLET 650 MG PO (22:54)
[2020-05-08] VITALS (12 sets, daily range): BP systolic 128–163; BP diastolic 68–83; PULSE 67–97; RESP 17–20; TEMP 36.2–37; O2SAT 96–99
[2020-05-08] MEDS: ALBUTEROL SULFATE NEB 2.5 MG/0.5 ML INH 5 MG INHALATION ×4 (02:10→20:53)
[2020-05-08] MEDS: IPRATROPIUM BR 0.02% INH SOLN 0.5 MG/2.5 ML VIAL INHALATION ×4 (02:10→20:53)
[2020-05-08] MEDS: ENOXAPARIN 40 MG/0.4 ML SYRINGE SUB-Q ×2 (05:45→18:36)
[2020-05-08] MEDS: CENTRAL LINE FLUSH 10 ML IV PUSH ×3 (05:45→21:42)
[2020-05-08 06:02] LABS: D Dimer 0.82 ug/mL (<0.48)
[2020-05-08 06:06] LABS: Alanine Aminotransferase 73 U/L (4-35); Albumin Level 2.9 g/dL (3.5-5.1); Alkaline Phosphatase 53 U/L (38-126); Anion Gap 2 mmol/L (8-16); Aspartate Amino Transferase 56 U/L (14-36); Bilirubin,Total 0.4 mg/dL (0.2-1.3); Blood Urea Nitrogen 20 mg/dL (7-17); Calcium 8.7 mg/dL (8.4-10.2); Carbon Dioxide 28 mmol/L (22-30); Chloride 110 mmol/L (98-107); Estimated CRCL calculation 100 ml/min; Estimated Glomerular Filt Rate > 60; Glucose 122 mg/dL (65-105); Lactate Dehydrogenase 784 U/L (313-618); Magnesium 1.7 mg/dL (1.6-2.3); Potassium 3.6 mmol/L (3.4-5.0); Sodium 140 mmol/L (137-145)
[2020-05-08 06:07] LABS: Hematocrit 37.7 % (37.0-47.0); Mean Corpuscular HGB Conc 31.8 g/dl (32-36); Mean Corpuscular Hemoglobin 28.9 pg (26-34); Mean Corpuscular Volume 90.8 fl (80-100); Mean Platelet Volume 10.9 fl (7.4-10.4); Platelet Count Result 183 k/mm3 (150-375); Red Blood Count 4.15 M/mm3 (4.2-5.4); Red Cell Distribution Width 12.9 % (11.5-14.5); White Blood Count 6.2 K/mm3 (4.5-10.0)
[2020-05-08] MEDS: ATORVASTATIN 10 MG TABLET PO (08:09)
[2020-05-08] MEDS: guaiFENesin 12 HR 600 MG TABCR PO ×2 (08:10→21:41)
[2020-05-08] MEDS: MICONAZOLE NITRATE 2% CREAM 30 GM TUBE 1 APPLIC TOPICAL (08:10)
[2020-05-08] MEDS: lisinopriL 5 MG TABLET PO (08:10)
[2020-05-08] MEDS: DEXAMETHASONE SOD PHOS INJ 4 MG/ML VIAL 6 MG IV PUSH (08:10)
[2020-05-08] MEDS: MONTELUKAST SODIUM 10 MG TABLET PO (08:11)
[2020-05-08] MEDS: INSULIN ASPART (*BKC) 100 UNITS/ML 10 UNITS SUB-Q ×3 (08:16→18:27)
[2020-05-08 08:32] LABS: Glucose Point of Care 127 (65-105)
[2020-05-08 09:00] LABS: Troponin I 0.395 ng/mL (0.000-0.034)
[2020-05-08] MEDS: REMDESIVIR 100 MG/NS 250 ML 100 MG/250 ML BAG 250 MG IVPB (10:13)
[2020-05-08 13:05] LABS: Glucose Point of Care 138 (65-105)
[2020-05-08 18:35] LABS: Glucose Point of Care 153 (65-105)
--- NOTE | 2020-05-08 18:37 | PC.NURSE ---
1814- CALLED AND UPDATED PT MOTHER ON PT CONDITION, ALL QUESTIONS ANSWERED.
--- NOTE | 2020-05-08 18:39 | PC.NURSE ---
1830- CALLED AND GAVE REPORT TO DUSTY RUSHING ON MED/SURG. HISTORY REVIEWED. ALL QUESTIONS ANSWERED. PT GOING TO ROOM 317. BELONGINGS WITH PT.
--- NOTE | 2020-05-08 19:58 | PC.NURSE ---
This patient, Ann Hill, was received from ICU 4 on 05/08/20 at 1950. Patient/family oriented to unit policies and routines
--- NOTE | 2020-05-08 20:03 | PC.NURSE ---
transfred to rm 317 via bed on room air
[2020-05-08] MEDS: INSULIN GLARGINE (*BKC) 100 UNITS/ML 40 UNITS SUB-Q (21:40)
[2020-05-08 21:57] LABS: Glucose Point of Care 157 (65-105)
[2020-05-09] VITALS (15 sets, daily range): BP systolic 130–160; BP diastolic 50–86; PULSE 72–95; RESP 16–20; TEMP 36.4–37.2; O2SAT 95–98
[2020-05-09] MEDS: ALBUTEROL SULFATE NEB 2.5 MG/0.5 ML INH 5 MG INHALATION ×4 (02:44→22:14)
[2020-05-09] MEDS: IPRATROPIUM BR 0.02% INH SOLN 0.5 MG/2.5 ML VIAL INHALATION ×4 (02:44→22:14)
[2020-05-09] MEDS: SODIUM CHLORIDE 0.9% IV 1,000 ML 30 ML IV CONT (06:07)
[2020-05-09] MEDS: CENTRAL LINE FLUSH 10 ML IV PUSH ×3 (06:08→21:22)
[2020-05-09] MEDS: ENOXAPARIN 40 MG/0.4 ML SYRINGE SUB-Q ×2 (06:08→17:34)
[2020-05-09 06:25] LABS: Potassium 3.5 mmol/L (3.4-5.0)
[2020-05-09 06:27] LABS: Alanine Aminotransferase 67 U/L (4-35); Albumin Level 2.9 g/dL (3.5-5.1); Alkaline Phosphatase 54 U/L (38-126); Anion Gap 3 mmol/L (8-16); Aspartate Amino Transferase 41 U/L (14-36); Bilirubin,Total 0.4 mg/dL (0.2-1.3); Blood Urea Nitrogen 17 mg/dL (7-17); Calcium 8.6 mg/dL (8.4-10.2); Carbon Dioxide 28 mmol/L (22-30); Chloride 110 mmol/L (98-107); Estimated CRCL calculation 100 ml/min; Estimated Glomerular Filt Rate > 60; Glucose 86 mg/dL (65-105); Magnesium 1.7 mg/dL (1.6-2.3); Sodium 141 mmol/L (137-145)
[2020-05-09 07:33] LABS: Hematocrit 38.3 % (37.0-47.0); Hemoglobin 12.4 g/dL (12.0-15.0); Mean Corpuscular HGB Conc 32.4 g/dl (32-36); Mean Corpuscular Hemoglobin 29.7 pg (26-34); Mean Corpuscular Volume 91.6 fl (80-100); Mean Platelet Volume 10.5 fl (7.4-10.4); Platelet Count Result 208 k/mm3 (150-375); Red Blood Count 4.18 M/mm3 (4.2-5.4); Red Cell Distribution Width 13.1 % (11.5-14.5); White Blood Count 5.7 K/mm3 (4.5-10.0)
[2020-05-09] MEDS: INSULIN ASPART (*BKC) 100 UNITS/ML 10 UNITS SUB-Q ×3 (08:08→17:34)
[2020-05-09] MEDS: MONTELUKAST SODIUM 10 MG TABLET PO (08:10)
[2020-05-09] MEDS: lisinopriL 5 MG TABLET PO (08:10)
[2020-05-09] MEDS: guaiFENesin 12 HR 600 MG TABCR PO ×2 (08:10→21:21)
[2020-05-09] MEDS: ATORVASTATIN 10 MG TABLET PO (08:10)
[2020-05-09] MEDS: MICONAZOLE NITRATE 2% CREAM 30 GM TUBE 1 APPLIC TOPICAL (08:11)
[2020-05-09] MEDS: DEXAMETHASONE SOD PHOS INJ 4 MG/ML VIAL 6 MG IV PUSH (08:11)
[2020-05-09 08:12] LABS: Glucose Point of Care 118 (65-105)
[2020-05-09 12:57] LABS: Glucose Point of Care 116 (65-105)
--- NOTE | 2020-05-09 15:23 | PM.IMPN ---
Progress Note: A&P Assessment and Plan (1) NSTEMI (non-ST elevated myocardial infarction): Code(s): I21.4 - Non-ST elevation (NSTEMI) myocardial infarction Status: Acute Assessment and Plan: Seen by cardiology earlier in admission myocardits vs ACS, plan to continue ASA and statin and lovenox (2) Acute respiratory failure with hypoxia and hypercapnia: Code(s): J96.01 - Acute respiratory failure with hypoxia; J96.02 - Acute respiratory failure with hypercapnia Status: Resolved Assessment and Plan: Pt is now on room air feels comfortable not sob or coughing in room (3) Type 2 diabetes mellitus with hyperglycemia: Qualifiers: Diabetes mellitus custodial insulin use: with exterminator helper termite use Qualified Code(s): E11.65 - Type 2 diabetes mellitus with hyperglycemia; Z79.4 - intermediate (current) use of insulin Code(s): E11.65 - Type 2 diabetes mellitus with hyperglycemia Status: Chronic Assessment and Plan: Accuchecks, SSI continue lantus (4) Tobacco abuse disorder: Code(s): Z72.0 - Tobacco use Status: Acute Assessment and Plan: Adviced to quit smoking (5) Acute respiratory failure due to COVID-19: Code(s): U07.1 - COVID-19; J96.00 - Acute respiratory failure, unspecified whether with hypoxia or hypercapnia Status: Acute Assessment and Plan: Pt is off oxygen Pt is on iv steroids (6) Multifocal pneumonia: Code(s): J18.9 - Pneumonia, unspecified organism Status: Acute Assessment and Plan: Pt is on iv azithromycin, iv rocephin for superimposed bacterial infection, hopeful Dc tomorrow. Subjective Date/time seen: 05/09/20 15:23 Interval history: 69 year old female with past medical history of chronic tobacco abuse, asthma, morbid obesity and insulin-dependent diabetes who presented to the ER on 05/02 with with 1 week of cough and shortness of breath. Pt initially had a rapid response and was in the ICU. Pt is doing well on room air now. Pt wants to go home. Pt having some problems at home with her daughter and her boyfriend. Pt explained that she was covid positive on 05/02. and is contagious until 05/12 Review of Systems Review of Systems: All systems reviewed & are unremarkable except as noted in HPI and below Exam Const: General: cooperative; No in distress Nutritional Appearance: overweight Orientation/consciousness: oriented to person HENMT: Head: normal to inspection Resp: Effort & Inspection: no respiratory distress Cardio: Rate: regular rate Rhythm: regular rhythm GI: Inspection: normal to inspection GI Palp: No abdominal tenderness, No Guarding due to palpation present (GI) and No Hepatomegaly present Auscultation: normal bowel sounds Neuro: General: oriented to person Psych: Mental Status: other (anxious about returning home ) Objective Data Vital Signs Vital Signs: Vital Signs - 24 hr 05/08/20 16:00 05/08/20 20:00 05/08/20 20:53 Temperature 37.0 C Pulse Rate 88 97 84 Respiratory Rate 18 20 18 Blood Pressure 128/68 155/83 H Pulse Oximetry 96 96 05/08/20 21:01 05/09/20 00:00 05/09/20 02:44 Temperature 37.1 C Pulse Rate 85 88 80 Respiratory Rate 20 16 18 Blood Pressure 160/77 H Pulse Oximetry 98 05/09/20 02:55 05/09/20 04:00 05/09/20 08:00 Temperature 36.9 C 37.1 C Pulse Rate 84 95 86 Respiratory Rate 18 18 18 Blood Pressure 130/50 L 153/86 H Pulse Oximetry 95 95 05/09/20 08:03 05/09/20 08:12 05/09/20 12:00 Temperature 36.4 C Pulse Rate 79 88 72 Respiratory Rate 20 20 20 Blood Pressure 148/70 H Pulse Oximetry 96 97 05/09/20 13:45 05/09/20 13:53 Temperature Pulse Rate 76 76 Respiratory Rate 18 18 Blood Pressure Pulse Oximetry Intake/Output Intake/Output: Intake & Output 05/06/20 05/07/20 05/08/20 05/09/20 23:59 23:59 23:59 23:59 Intake Total 1730 2480 1300 1680 Output Total 1000 350 500 Balance 730 2130 800 1680
[2020-05-09] MEDS: INSULIN ASPART (*BKC) 100 UNITS/ML SUB-Q (17:33)
[2020-05-09 17:34] LABS: Glucose Point of Care 201 (65-105)
[2020-05-09] MEDS: INSULIN GLARGINE (*BKC) 100 UNITS/ML 40 UNITS SUB-Q (21:21)
[2020-05-09 21:28] LABS: Glucose Point of Care 157 (65-105)
[2020-05-10] VITALS (11 sets, daily range): BP systolic 124–159; BP diastolic 55–78; PULSE 73–96; RESP 16–20; TEMP 36.2–36.9; O2SAT 94–98
[2020-05-10] MEDS: hydrALAZINE HCL 20 MG/ML VIAL 10 MG IV PUSH (01:21)
[2020-05-10] MEDS: ACETAMINOPHEN 325 MG TABLET 650 MG PO (03:02)
[2020-05-10] MEDS: IPRATROPIUM BR 0.02% INH SOLN 0.5 MG/2.5 ML VIAL INHALATION ×3 (03:51→15:27)
[2020-05-10] MEDS: ALBUTEROL SULFATE NEB 2.5 MG/0.5 ML INH 5 MG INHALATION ×3 (03:51→15:27)
[2020-05-10] MEDS: ENOXAPARIN 40 MG/0.4 ML SYRINGE SUB-Q (06:18)
[2020-05-10] MEDS: CENTRAL LINE FLUSH 10 ML IV PUSH (06:18)
[2020-05-10 06:44] LABS: Lactate Dehydrogenase 766 U/L (313-618)
[2020-05-10] MEDS: lisinopriL 5 MG TABLET PO (08:30)
[2020-05-10] MEDS: ATORVASTATIN 10 MG TABLET PO (08:30)
[2020-05-10] MEDS: DEXAMETHASONE SOD PHOS INJ 4 MG/ML VIAL 6 MG IV PUSH (08:30)
[2020-05-10] MEDS: MONTELUKAST SODIUM 10 MG TABLET PO (08:30)
[2020-05-10] MEDS: ASPIRIN 325 MG TABLET PO (08:30)
[2020-05-10] MEDS: guaiFENesin 12 HR 600 MG TABCR PO (08:30)
[2020-05-10] MEDS: MICONAZOLE NITRATE 2% CREAM 30 GM TUBE 1 APPLIC TOPICAL (08:33)
--- NOTE | 2020-05-10 11:37 | PCNWS ---
Weekly nutritional screen. Patient is tolerating current diet-DBCC with adequate intake-100% of meals. No weight loss reported. No nutritional needs at this time.
[2020-05-10 12:47] LABS: Glucose Point of Care 176 (65-105)
[2020-05-10 12:47] LABS: Glucose Point of Care 64 (65-105)
--- NOTE | 2020-05-10 13:20 | PM.DS ---
DS: Admitting Diagnosis Admitting Diagnosis Admitting Diagnosis: Sob and cough DS: Discharge Diagnosis Discharge Diagnosis (1) NSTEMI (non-ST elevated myocardial infarction): Code(s): I21.4 - Non-ST elevation (NSTEMI) myocardial infarction Status: Acute Assessment and Plan: Seen by cardiology earlier in admission myocardits vs ACS, plan to continue ASA and statin and lovenox (2) Acute respiratory failure with hypoxia and hypercapnia: Code(s): J96.01 - Acute respiratory failure with hypoxia; J96.02 - Acute respiratory failure with hypercapnia Status: Resolved Assessment and Plan: Pt is now on room air feels comfortable not sob or coughing in room (3) Type 2 diabetes mellitus with hyperglycemia: Qualifiers: Diabetes mellitus fpc insulin use: with fpc use Qualified Code(s): E11.65 - Type 2 diabetes mellitus with hyperglycemia; Z79.4 - snf (current) use of insulin Code(s): E11.65 - Type 2 diabetes mellitus with hyperglycemia Status: Chronic Assessment and Plan: Accuchecks, SSI continue lantus (4) Tobacco abuse disorder: Code(s): Z72.0 - Tobacco use Status: Acute Assessment and Plan: Adviced to quit smoking (5) Acute respiratory failure due to COVID-19: Code(s): U07.1 - COVID-19; J96.00 - Acute respiratory failure, unspecified whether with hypoxia or hypercapnia Status: Acute Assessment and Plan: Pt is off oxygen Pt is on iv steroids transition to oral steroids for 7 days (6) Multifocal pneumonia: Code(s): J18.9 - Pneumonia, unspecified organism Status: Acute Assessment and Plan: Pt is on iv azithromycin, iv rocephin for superimposed bacterial infection, hopeful Dc today with a zpack. DS: Summary Hospital Course Hospital Course: 69 year old female with past medical history of chronic tobacco abuse, asthma, morbid obesity and insulin-dependent diabetes who presented to the ER on 05/02 with with 1 week of cough and shortness of breath. Pt initially had a rapid response and was in the ICU for multifocal PNEUMOMIA and asthma excerabtion and covid. Was on BIPAP, IV abx and iv steroids then did well and came to the medical floor. Pt is doing well on room air now. Pt wants to go home. Pt having some problems at home with her daughter. resolved now, pt is discharged home with her daughter. Pt explained that she was covid positive on 05/02. and is contagious until 05/12. Time Spent with Patient Time attestation: Total time spent providing and/or coordinating discharge services:40 minutes on day of dischrage Exam Const: General: cooperative; No in distress Nutritional Appearance: overweight Orientation/consciousness: oriented to person HENMT: Head: normal to inspection Resp: Effort & Inspection: no respiratory distress Cardio: Rate: regular rate Rhythm: regular rhythm GI: Inspection: normal to inspection Auscultation: normal bowel sounds Neuro: General: oriented to person DS: Data Data Completed and Pending Labs on day of discharge: Labs from last 24 hours 05/10/20 05/10/20 05/10/20 12:10 08:09 06:14 POC Capillary Glucose 176 H 64 L Ferritin Lactate Dehydrogenase 766 H 05/10/20 05/09/20 05/09/20 06:14 21:20 17:32 POC Capillary Glucose 157 H 201 H Ferritin 228.00 Lactate Dehydrogenase Discharge Plan Discharge Attending physician on discharge: Mayra Consulting providers: Dimitris Dillon ; Dale Israel Discharging Clinician: Kerline Nunez Anticipated Discharge Date/Time: 05/10/20 13:17 Patient Disposition: Home, Self-Care Activity: as tolerated Diet: heart healthy Discharge Instructions: Social distancing, wear mask wash hands in quarantine until 05/12/2020 Patient Instructions: Antibiotic Form, How to Stop Smoking (DC), COVID-19 (Coronavirus Disease 2019) (GEN) Stand Alone Forms: General Discharge
[2020-05-10] MEDS: INSULIN ASPART (*BKC) 100 UNITS/ML 10 UNITS SUB-Q (14:38)
[2020-05-10] MEDS: NEOMYCIN/POLYMYXIN/BACITRACIN OINTMENT PACKET 1 PACKET (14:39)
== END 2020-05-10 16:40 | disposition home or self-care (01) | DRG 177 ==
LOC: ANHED 18:22 → ANH3MEDSUR 21:38 → ANHICU 05-03 02:01 → ANH3MEDSUR 05-09 11:28 → ANHICU 05-14 10:03
PROVIDERS: Internal Medicine; Admitting Provider Internal Medicine; Emergency Provider Emergency Medicine; PCP Physician Assistant; Visit Provider Family Medicine
DX: U07.1 COVID-19 (principal); J96.02 Acute respiratory failure with hypercapnia; J96.01 Acute respiratory failure with hypoxia; I21.4 Non-ST elevation (NSTEMI) myocardial infarction; J12.82 Pneumonia due to coronavirus disease 2019; Z68.42 Body mass index [BMI] 45.0-49.9, adult; J45.51 Severe persistent asthma with (acute) exacerbation; E87.2 Acidosis; G47.34 Idiopathic sleep related nonobstructive alveolar hypoventilation; E11.40 Type 2 diabetes mellitus with diabetic neuropathy, unspecified; E11.65 Type 2 diabetes mellitus with hyperglycemia; E66.01 Morbid (severe) obesity due to excess calories; F17.210 Nicotine dependence, cigarettes, uncomplicated; I10 Essential (primary) hypertension; E78.5 Hyperlipidemia, unspecified; Z79.4 Long term (current) use of insulin; Z79.899 Other long term (current) drug therapy
CPT/HCPCS: 36415; 36430; 36569; 36600; 71045; 71275; 80048; 80053; 81001; 82375; 82565; 82728; 82805; 82948; 83036; 83050; 83605; 83615; 83735; 83880; 84460; 84484; 85025; 85027; 85055; 85380; 85610; 86140; 86900; 86901; 87040; 87086; 87804; 93005; 93306; 93970; 94002; 94003; 94640; 94762; 96361; 96365; 96367; 96372; 96375; 96376; 97110; 97161; 97165; 97530; 97535; 99291; A9270; C1751; C9803; G0378; J0360; J0456; J0696; J1100; J1650; J1815; J1885; J1940; J2930; J3475; J7030; J7050; P9059; Q9967; U0003; U0005

== ENCOUNTER 2023-11-16 22:58 | Observation (INO) | payer MEDICARE, MEDICAID, SELFPAY ==
--- NOTE | ~2023-11-16 | XR_ITS ---
EXAMINATION: XR tibia fibula RT 2V DATE: 11/17/2023 01:53 INDICATION: Right lower leg cellulitis. TECHNIQUE: 2 views of right tibia and fibula on 4 radiographs were obtained. COMPARISON: None. FINDINGS: Alignment is normal. No fracture. There is mild midfoot osteoarthritis. There is mild knee joint osteoarthritis. No knee joint effusion. IMPRESSION: 1. Polyarticular osteoarthritis. Reviewed, dictated and finalized at location A.
--- NOTE | ~2023-11-16 | XR_ITS ---
EXAMINATION: XR chest 1V portable DATE: 11/17/2023 01:53 INDICATION: Cough. TECHNIQUE: A single frontal view of the chest was obtained. COMPARISON: Chest single view 05/04/2020, chest CT 05/03/2020 FINDINGS: There is chronic eventration of anterior right hemidiaphragm. A calcified right lung nodule and calcified right hilar and mediastinal lymph nodes are consistent with old granulomatous disease. There are airspace opacities in the right midlung zone. No pleural effusion or pneumothorax. Cardiom egaly is noted. There is a prominent left pericardial fat pad. IMPRESSION: 1. Airspace opacities in right midlung zone, consistent with atelectasis versus pneumonia. 2. Cardiomegaly. Reviewed, dictated and finalized at location A.
--- NOTE | ~2023-11-16 | XR_ITS ---
EXAMINATION: XR tibia fibula LT 2V DATE: 11/17/2023 01:53 INDICATION: Left lower leg cellulitis. TECHNIQUE: 2 views of the left tibia and fibula on 4 radiographs were obtained. COMPARISON: None. FINDINGS: Alignment is normal. No fracture. There is mild midfoot osteoarthritis. There is moderate k nee osteoarthritis. IMPRESSION: 1. Polyarticular osteoarthritis. Reviewed, dictated and finalized at location A.
--- NOTE | ~2023-11-16 | US_ITS ---
EXAMINATION: US venous doppler LE RT DATE: 11/17/2023 18:32 INDICATION: Lower limb swelling. Cough. TECHNIQUE: Grayscale ultrasound images without and with compression and Doppler ultrasound images of the right lower extremity veins were obtained. COMPARISON: None. FINDINGS: The visualized portions of right common femoral vein, profunda (deep) femoral vein, femoral vein and greater saphenous vein outflow are patent. Is very patient was unable to tolerate completion of the e xam and the right popliteal and more distal veins were nonvisualized. IMPRESSION: 1. No above the knee deep venous thrombosis in the right lower limb. Study terminated at patient req uest prior to assessment of the right popliteal and more distal veins. Reviewed, dictated and finalized at location A. IMPRESSION: 1. No above the knee deep venous thrombosis in the right lower limb. Study ter minated at patient request prior to assessment of the right popliteal and more distal veins.
[2023-11-16 23:03] VITALS: BP 151/98; PULSE 120; RESP 22; TEMP 36.8; O2SAT 97
[2023-11-17] VITALS (13 sets, daily range): BP systolic 110–166; BP diastolic 49–99; PULSE 75–135; RESP 14–22; TEMP 36.1–36.5; O2SAT 92–98; BMI 51.7
--- NOTE | 2023-11-17 | ECHO_ITS ---
Patient Info Name: Ann Hill Age: 73 years : 1950 Gender: Female Ht: 64 in Wt: 301 lbs BSA: 2.57 m2 HR: 110 bpm BP: 166 / 99 mmHg Heart Rhythm: Atrial Fibrillation Technical Quality: Fair Exam Date: 11/17/2023 3:36 PM Exam Location: Echo Lab Patient Status: Outpatient Admit Date: 11/17/2023 Staff Ordering Physician: Elizabeth Pretty APRN Business Unit Leader: JENNIFER Attending Provider: Mireya Zendejas DO Referring Physician: Maria De Jesus REYNOSO; Exam Type: CA echo dop color flow w con Study Info Indications - new onset a fib Complete two-dimensional, color flow and Doppler transthoracic echocardiogram is performed with contrast to opacify the left ventricle and to improve the deliniation of the left ventricle endocardial borders. Summary 1. Definity contrast administered improved wall motion interpretation. 2. Left ventricular chamber dimension is normal. 3. Left ventricular systolic function is normal, estimated at 65-70%. 4. There is mild concentric increased left ventricular wall thickness. 5. The left ventricular diastolic function is abnormal. 6. E/e' 15 is elevated. 7. Atrial fibrillation. 8. Left atrial chamber dimension is moderately enlarged. 9. There is mild aortic valve sclerosis. 10. There is trace mitral valve regurgitation. 11. There is mild tricuspid valve regurgitation. 12. No pulmonary hypertension, estimated pulmonary arterial systolic pressure is 34 mmHg. Left Ventricle E/e' 15 is elevated. Definity contrast administered improved wall motion interpretation. Atrial fibrillation. Left ventricular chamber dimension is normal. Left ventricular systolic function is normal, estimated at 65-70%. There is mild concentric increased left ventricular wall thickness. The left ventricular diastolic function is abnormal. Right Ventricle Right ventricular chamber dimension is normal. Right ventricular systolic function is normal. Left Atria Left atrial chamber dimension is moderately enlarged. Right Atria Right atrial chamber dimension is normal. Aortic Valve The aortic valve is trileaflet. There is mild aortic valve sclerosis. There is no aortic valve stenosis. There is no aortic valve regurgitation. Pulmonic Valve There is no pulmonic regurgitation. Mitral Valve There is no mitral valve stenosis. There is trace mitral valve regurgitation. Tricuspid Valve There is mild tricuspid valve regurgitation. No pulmonary hypertension, estimated pulmonary arterial systolic pressure is 34 mmHg. Pericardium/Pleural There is no pericardial effusion. Inferior Vena Cava Normal inferior vena cava with >50% collapse upon inspiration consistent with normal right atrial pressure, 5 mmHg. Aorta The aortic root size at the sinus of Valsalva is normal. Left Ventricular Outflow Tract Name Value Normal LVOT 2D LVOT Diameter 2.03 cm LVOT Doppler LVOT Peak Gradient 4 mmHg LVOT Mean Gradient 2 mmHg LVOT VTI 19.65 cm LVOT VTI/AV VTI Ratio 0.64 LVOT Stroke Volume 63.44 ml LVOT CO 5.44 l/min LVOT C
--- NOTE | 2023-11-17 01:02 | ECG_ITS ---
Test Date: 2023-11-17 01:42:27 Measurements Intervals Dailey Rate: 108 P: 0 AR: 0 QRS: 83 QRSD: 90 T: -7 QT: 327 QTc: 439 Interpretive Statements ATRIAL FIBRILLATION WITH RAPID VENTRICULAR RESPONSE NONSPECIFIC ST & T-WAVE ABNORMALITY No previous ECG available for comparison Electronically Signed On 11-17-2023 16:00:59 CDT by Negar Gonsalves M.D.
--- NOTE | 2023-11-17 01:11 | ED.GENADULT ---
HPI - General Adult General Chief complaint: Wound/Laceration Stated complaint: cellulitis Time Seen by Provider: 11/17/23 00:47 History of Present Illness HPI narrative: patient 73-year-old female who presents emergency department with chief complaint of lower extremity cellulitis. The patient reports he has history of chronic venous stasis ulcers and reports that she started having redness and swelling in her lower extremities for the last several days patient states she has had blisters that have appeared and has had weeping from the wounds. Patient denies trauma reports that she gets like this whenever the temperature gets hot outside. Patient reports she has prior history diabetes Related Data Home Medications Medication Instructions Recorded Confirmed atorvastatin 10 mg tablet 10 mg PO DAILY 02/07/19 05/03/20 insulin syringe-needle U-100 0.5 #10 ea 02/07/19 05/03/20 mL 31 gauge x 5/16 (Comfort EZ Insulin Syringe) montelukast 10 mg tablet 10 mg PO DAILY 02/07/19 05/03/20 cetirizine 10 mg tablet 10 mg PO DAILY 05/03/20 05/03/20 citalopram 40 mg tablet 40 mg PO HS 05/03/20 05/03/20 insulin aspart U-100 100 unit/mL 10 unit subcut TIDWM 05/03/20 05/03/20 (3 mL) subcutaneous pen (Novolog FlexPen U-100 Insulin aspart) insulin glargine 100 unit/mL (3 40 unit subcut HS 05/03/20 05/03/20 mL) subcutaneous pen (Basaglar KwikPen U-100 Insulin) lisinopril 5 mg tablet 5 mg PO DAILY 05/03/20 05/03/20 Allergies Allergy/AdvReac Type Severity Reaction Status Date / Time bee venom protein (honey bee) Allergy Unconscious Verified 05/04/20 23:55 [bees] Review of Systems Review of Systems: A 10 system review of systems was completed on the patient and is negative except for what is stated in the HPI. Nursing and ancillary documentation was reviewed. [facility] Past Medical History Medical History Diabetes Diabetic neuropathy Essential hypertension Hyperlipidemia Morbid obesity Overflow stress urinary incontinence in female Surgical History Surgical History History of cholecystectomy History of tubal ligation Family History Family History Mother Hypercholesterolemia Malignant neoplasm of skin Father Heart disease Grandparent Diabetes mellitus Other Diabetes mellitus Breast cancer Social History Social History Social History: She is and lives with a roommate. She has 1 adult daughter. Her son in 2012 due to an ATV accident. She has smoked as much as pack of cigarettes per day since she was a teenager. She is currently cut down to half a pack of cigarettes per day for the last year or so. She occasionally drinks alcohol in moderation. She denies any illicit substance use. 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 Code status: Full code Surrogate decision maker: Daughter Smoking packs per day: 0.5 Smoking cigarettes per day: 10.0 Smoking status: Current every day smoker Tobacco type: cigarettes Alcohol intake: current Drinks per week: 1 Substance use: never Substance use type: does not use Gender identity (if verbalized by the patient): Female Sexual Orientation (if Verbalized by the Patient): Straight or Heterosexual Spiritual care concerns: No Exam Narrative: GENERAL: Well-appearing, well-nourished, and in no acute distress. HEAD: Normocephalic, atraumatic. EYES: PERRLA and EOMI. ENT: Nares clear, no rhinorrhea or epistaxis. Mucous membranes moist. NECK: Supple. CHEST: Clear to auscultation. No respiratory distress. HEART: Regular rate and rhythm. No murmur heard. Normal peripheral pulses. ABDOMEN: Soft, nontender, nondistended, normal active bowel sounds. EXTREMITIE
[2023-11-17 01:16] LABS: Basophils Absolute Auto 0.1 K/mm3 (0.0-0.1); Basophils Percent Auto 0.7 % (0.2-1.2); Eosinophils Absolute Auto 0.2 K/mm3 (0-0.3); Eosinophils Percent Auto 1.9 % (0-4.4); Hematocrit 40.2 % (37.0-47.0); Hemoglobin 12.6 g/dL (12.0-15.0); Immature Granulocyte Absolute 0.02 K/mm3 (0.00-0.031); Immature Granulocyte Percent A 0.2 % (0-0.5); Lymphocytes Absolute Auto 1.74 K/mm3 (0.9-3.2); Lymphocytes Percent Auto 20.6 % (18.3-44.2); Mean Corpuscular HGB Conc 31.3 g/dl (32-36); Mean Corpuscular Hemoglobin 29.6 pg (26-34); Mean Corpuscular Volume 94.6 fl (80-100); Mean Platelet Volume 9.4 fl (7.4-10.4); Monocytes Absolute Auto 0.7 K/mm3 (0.1-0.6); Monocytes Percent Auto 8.4 % (2.6-8.5); Neutrophils Absolute Auto 5.8 K/mm3 (1.3-6.7); Neutrophils Percent Auto 68.2 % (45.5-73.1); Platelet Count Result 283 k/mm3 (150-375); Red Blood Count 4.25 M/mm3 (4.2-5.4); Red Cell Distribution Width 13.2 % (11.5-14.5); White Blood Count 8.4 K/mm3 (4.5-10.0)
[2023-11-17 01:26] LABS: Alanine Aminotransferase 18 U/L (6-35); Albumin Level 3.8 g/dL (3.5-5.1); Alkaline Phosphatase 95 U/L (38-126); Anion Gap 9 mmol/L (4-12); Aspartate Amino Transferase 20 U/L (14-36); Bilirubin,Total 0.4 mg/dL (0.2-1.3); Blood Urea Nitrogen 17 mg/dL (7-17); Calcium 9.2 mg/dL (8.4-10.2); Carbon Dioxide 28 mmol/L (22-30); Chloride 101 mmol/L (98-107); Estimated Glomerular Filt Rate > 60; Glucose 159 mg/dL (65-110); Potassium 4.6 mmol/L (3.4-5.0); Sodium 138 mmol/L (137-145)
[2023-11-17 01:28] LABS: Prothrombin Time 13.5 Seconds (11.1-14.7)
[2023-11-17 01:29] LABS: Partial Thromboplastin Time 31.7 Seconds (22.3-36.8)
[2023-11-17 01:31] LABS: CRP 3.3 mg/dL (<1.0)
[2023-11-17 01:34] LABS: NT Pro B Type Natriuretic Pept 1220 pg/mL (19.9-100)
[2023-11-17 01:40] LABS: Erythrocyte Sedimentation Rate 30 mm/hr (0-20)
[2023-11-17 01:55] LABS: Lactic Acid Reflex 0.8 mmol/L (0.7-2.0)
--- NOTE | 2023-11-17 03:17 | ECG_ITS ---
Test Date: 2023-11-17 03:18:58 Measurements Intervals [place] Rate: 110 P: 0 [place]: 0 QRS: 80 QRSD: 94 T: -11 QT: 344 QTc: 467 Interpretive Statements ATRIAL FIBRILLATION WITH RAPID VENTRICULAR RESPONSE NONSPECIFIC T-WAVE ABNORMALITY Compared to ECG 11/17/2023 01:42:27 No significant changes Electronically Signed On 11-17-2023 16:01:06 CDT by Negar Gonsalves M.D.
[2023-11-17 03:22] LABS: Glucose Point of Care 162 mg/dl (65-105)
[2023-11-17] MEDS: CEFEPIME 2 GM/NS 50 ML 2 GM/50 ML BAG IVPB (03:26)
[2023-11-17 04:42] LABS: Add Urine Microscopic? YES; Appearance Urine Cloudy (Clear); Bacteria Urine 4+ /hpf; Bilirubin Urine Negative (Negative); Blood Urine Negative (Negative); Color Urine Yellow (Yellow); Glucose Urine UA Negative (Negative); Ketones Urine Negative (Negative); Leukocyte Esterase Ur Trace LEU/UL (Negative); Nitrate Urine Positive (Negative); Non Pathogenic Casts 0-2; Protein Urine 1+ mg/dL (Negative); RBC Urine 0-2 /hpf (0-2); Specific Grav Ur 1.009 (1.001-1.035); Squamous Epithelial Cell Urine None Seen /hpf (Few); pH Urine 6.5 (5.0-9.0)
[2023-11-17] MEDS: metroNIDAZOLE 500 MG/ISO 100ML 500 MG/100 ML BAG 100 MG IVPB ×2 (04:44→10:24)
[2023-11-17 05:16] LABS: Glucose Point of Care 164 mg/dl (65-105)
--- NOTE | 2023-11-17 05:22 | ADMGEN ---
This patient, Ann Hill, was admitted to Medical Room 260-01 at 0500. Patient/family oriented to hospital policies and general routines including ID bracelet, bed and alarms, visiting hours, pain management, procedures, bathroom and other care routines, personal items, smoking policy, room service/diet, and visiting hours. Information on how to activate the Rapid Response Team has been discussed. Patient/Family are encouraged to report perceived risks to care and to ask questions if they do not understand what they are told or what they should do.
[2023-11-17] MEDS: VANCOMYCIN 1,250 MG/NS 250 ML 1,250 MG/250 ML BAG 166.67 MG IVPB ×2 (05:50→07:30)
[2023-11-17 07:48] LABS: Glucose Point of Care 132 mg/dl (65-105)
--- NOTE | 2023-11-17 09:00 | PM.IMHP ---
H&P: HPI History of Present Illness Date/Time: 11/17/23 09:00 Chief Complaint: Cellulitis Narrative: Interval history: This is a 73-year-old female with a significant past medical history of diabetes, diabetic neuropathy, hypertension, hyperlipidemia, morbid obesity, tobacco abuse, marijuana abuse who presents to the hospital for evaluation cellulitis. Workup in the hospital included a left tib-fib x-ray which showed polyarticular arthritis. She also had a right tib-fib x-ray which showed polyarticular osteoarthritis. Chest x-ray showing airspace opacities in right mid lung zone consistent with atelectasis versus pneumonia. Initial labs showed a C reactive protein of 3.3, proBNP 1220, ESR 30, white blood cell count was normal at 8.4. A UA was obtained which showed a cloudy appearance, 1+ urine protein, positive nitrate, trace leukocyte, 6-10 urine WBC, 4+ urine bacteria. Blood and urine cultures were obtained and are pending. Patient was started on cefepime, Flagyl, vancomycin. Subjective: 11/17/23: Patient denies any fever, chills, nausea, vomiting, diarrhea, abdominal pain, chest pain. Patient endorses bilateral lower extremity leg swelling with wounds, redness, and pain. She is short of breath at rest. Currently on room air. She denies any use of inhalers and is a current smoker 1/2 pack per day for the last 10 years. She also reports that she smokes marijuana about once a month. She denies ever having PFTs or being followed by a insecticide expert. Nursing reports that she is in A fib with RVR with a rate in the 130's. Patient denies any history of Afib. Review of Systems Review of Systems: All systems reviewed & are unremarkable except as noted in HPI and below Constitutional: Constitutional: Reports as per HPI and Reports no additional constitutional complaints Eyes: Eyes: Reports as per HPI and Reports no additional eye complaints ENT: Reports system reviewed and no additional complaints, except as documented and Reports as per HPI Cardiovascular: Cardiovascular: Reports as per HPI and Reports no additional cardiovascular complaints Respiratory: Respiratory: Reports as per HPI and Reports no additional respiratory complaints Gastrointestinal: Gastrointestinal: Reports as per HPI and Reports no additional gastrointestinal complaints Genitourinary: Genitourinary: Reports no additional female genitourinary complaints and Reports as per HPI Musculoskeletal: Musculoskeletal: Reports no additional musculoskeletal complaints and Reports as per HPI Integumentary/Breasts: Skin/Breast: Reports system reviewed and no additional complaints, except as docu and Reports as per HPI Neurologic: Reports system reviewed and no additional complaints, except as documented and Reports as per HPI Psychiatric: Psychiatric: Reports no additional psychiatric complaints and Reports as per HPI [facility] Past Medical History Medical History Diabetes Diabetic neuropathy Essential hypertension Hyperlipidemia Morbid obesity Overflow stress urinary incontinence in female Surgical History Surgical History History of cholecystectomy History of tubal ligation Family History Family History Mother Hypercholesterolemia Malignant neoplasm of skin Father Heart disease Grandparent Diabetes mellitus Other Diabetes mellitus Breast cancer Social History Social History Social History: She is and lives with a roommate. She has 1 adult daughter. Her son in 2012 due to an ATV accident. She has smoked as much as pack of cigarettes per day since she was a teenager. She is currently cut down to half a pack of cigarettes per day for the last year or so. She occasionally drinks alcohol in moderation. She denies any illici
[2023-11-17] MEDS: lisinopriL 5 MG TABLET PO (10:24)
[2023-11-17] MEDS: ENOXAPARIN 40 MG/0.4 ML SYRINGE SUB-Q (10:24)
[2023-11-17] MEDS: GABAPENTIN 300 MG CAPSULE PO ×2 (10:24→16:52)
[2023-11-17] MEDS: ATORVASTATIN 10 MG TABLET PO (10:24)
[2023-11-17] MEDS: MONTELUKAST SODIUM 10 MG TABLET PO (10:24)
[2023-11-17] MEDS: ASPIRIN 325 MG TABLET PO (10:24)
[2023-11-17 10:48] LABS: Hemoglobin A1C 7.4 % (<5.7)
[2023-11-17 11:42] LABS: Glucose Point of Care 182 mg/dl (65-105)
[2023-11-17 13:49] LABS: Alanine Aminotransferase 15 U/L (6-35); Albumin Level 3.2 g/dL (3.5-5.1); Alkaline Phosphatase 82 U/L (38-126); Anion Gap 4 mmol/L (4-12); Aspartate Amino Transferase 19 U/L (14-36); Bilirubin,Total 0.3 mg/dL (0.2-1.3); Blood Urea Nitrogen 17 mg/dL (7-17); Calcium 8.7 mg/dL (8.4-10.2); Carbon Dioxide 28 mmol/L (22-30); Chloride 103 mmol/L (98-107); Estimated CRCL calculation 88 ml/min; Estimated Glomerular Filt Rate > 60; Glucose 196 mg/dL (65-110); Potassium 4.3 mmol/L (3.4-5.0); Sodium 135 mmol/L (137-145)
--- NOTE | 2023-11-17 14:58 | PM.CNCAR ---
Assessment and Plan Assessment and plan (1) Atrial fibrillation with RVR: Code(s): I48.91 - Unspecified atrial fibrillation Status: Acute Assessment and Plan: Was in RVR initially, however, she is currently rate controlled. Will start Metoprolol 25mg PO Q6H. Check TSH level. Echo ordered and pending. [id number] of 4. Anticoagulation for stroke risk reduction indicated. Will re-discuss with the patient when she is more awake. Recommend outpatient sleep study. (2) Essential hypertension: Code(s): I10 - Essential (primary) hypertension Status: Acute Assessment and Plan: Continue Lisinopril. (3) Hyperlipidemia: Code(s): E78.5 - Hyperlipidemia, unspecified Status: Acute Assessment and Plan: Continue Atorvastatin. (4) Bilateral cellulitis of lower leg: Code(s): L03.116 - Cellulitis of left lower limb; L03.115 - Cellulitis of right lower limb Status: Acute Assessment and Plan: Management as per primary team. (5) Type 2 diabetes mellitus with hyperglycemia: Qualifiers: Diabetes mellitus tank terminal gauger insulin use: with senior care use Qualified Code(s): E11.65 - Type 2 diabetes mellitus with hyperglycemia; Z79.4 - retirement (current) use of insulin Code(s): E11.65 - Type 2 diabetes mellitus with hyperglycemia Status: Chronic Assessment and Plan: Management as per primary team. (6) Tobacco abuse disorder: Code(s): Z72.0 - Tobacco use Status: Acute Assessment and Plan: Encourage smoking cessation. History of Present Illness History of Present Illness Consult date/time: 11/17/23 14:58 Requesting physician: Elizabeth Pretty APRN Consult reason: atrial fibrillation Reason For Visit: lower extremity cellulitis,diabetes Narrative: We are consulted for atrial fibrillation. Ann is a 73 year old female with morbid obesity with BMI of 52, hypertension, hyperlipidemia, diabetes mellitus complicated by neuropathy, tobacco abuse, marijuana use who presented with lower extremity cellulitis. Overnight, patient noted to be in atrial fibrillation, which is a new diagnosis for her. Difficult to obtain history from the patient as she keeps falling asleep during the examination. Review of Systems Review of Systems: All systems reviewed & are unremarkable except as noted in HPI and below (HPI) [facility] Past Medical History Medical History Diabetes Diabetic neuropathy Essential hypertension Hyperlipidemia Morbid obesity Overflow stress urinary incontinence in female Surgical History Surgical History History of cholecystectomy History of tubal ligation Family History Family History Mother Hypercholesterolemia Malignant neoplasm of skin Father Heart disease Grandparent Diabetes mellitus Other Diabetes mellitus Breast cancer Social History Social History Social History: She is and lives with a roommate. She has 1 adult daughter. Her son in 2012 due to an ATV accident. She has smoked as much as pack of cigarettes per day since she was a teenager. She is currently cut down to half a pack of cigarettes per day for the last year or so. She occasionally drinks alcohol in moderation. She denies any illicit substance use. 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 Code status: Full code Surrogate decision maker: Daughter Smoking packs per day: 0.5 Smoking cigarettes per day: 10.0 Years smoked: 30 Smoking pack-years: 15.00 Smoking status: Current every day smoker Tobacco type: cigarettes Alcohol intake: never Drinks per week: 1 Substance use: never Substance use type: marijuana Do You Feel Safe in your Home?: Yes Lack of Transportat
[2023-11-17] MEDS: PERFLUTREN LIPID MICROSPHERES 1.5 ML VIAL DILUTED TO 10 ML TOTAL VOLUME IV PUSH (15:20)
[2023-11-17] MEDS: METOPROLOL SUCCINATE EXT REL 25 MG TABCR PO ×2 (15:27→21:19)
[2023-11-17] MEDS: AMPICILLIN SULB 3 GM/NS 100 ML 3 GM/100 ML VIAL IVPB ×2 (15:27→21:20)
[2023-11-17 16:23] LABS: Alveolar/Arterial O2 Gradient 30.1 mmHg; Base Excess ABG 2.4 mEq/l (+/-2.0); Fractional Inspired Oxygen 21 %; Oxygen Content ABG 15.8 %vol (16.0-22.0); Oxygen Saturation ABG 91.6 % (95.0-100.0); Oxyhemoglobin 89.7 % THb (90.0-100.0); PCO2 ABG 47.5 mmHg (35.0-45.0); PO2 ABG 62.8 mmHg (80.0-100.0); PO2 FiO2 Ratio Arterial Blood 2.99 %; Total Hemoglobin 12.5 g/dL (12.0-18.0); pH ABG 7.388 (7.350-7.450)
[2023-11-17 16:25] LABS: Site Drawn LEFT RADIAL
[2023-11-17 16:26] LABS: Device ROOM AIR; Modified Allen's Test Pass
--- NOTE | 2023-11-17 16:28 | IVDEFINITY ---
Prior to administration of IV Definity the patient was educated on the risks and benefits of the imaging enhancing agent including potential adverse side effects. The patient verbalized understanding. Allergies were verified. No exclusion criteria were identified and at least one of the following inclusion criteria were met: 1) physician request, 2) patient technically difficult to image (per the [place] [employer] Echocardi[employer] guidelines of two or more segments not discernable within the apical view), or 3) questionable left ventricular function. ?
[2023-11-17 16:39] LABS: Glucose Point of Care 177 mg/dl (65-105)
[2023-11-17 20:17] LABS: Glucose Point of Care 197 mg/dl (65-105)
[2023-11-17] MEDS: INSULIN GLARGINE (*BKC) 100 UNITS/ML 60 UNITS SUB-Q (21:18)
[2023-11-17] MEDS: CITALOPRAM HYDROBROMIDE 20 MG TABLET 40 MG PO (21:19)
[2023-11-17] MEDS: APIXABAN 5 MG TABLET PO (21:19)
[2023-11-17] MEDS: DOXYCYCLINE HYCLATE 100 MG TABLET PO (21:19)
[2023-11-18] VITALS (15 sets, daily range): BP systolic 125–156; BP diastolic 57–84; PULSE 61–95; RESP 22–24; TEMP 36.2–36.6; O2SAT 93–97; BMI 52.9
[2023-11-18] MEDS: AMPICILLIN SULB 3 GM/NS 100 ML 3 GM/100 ML VIAL IVPB ×4 (04:00→20:00)
[2023-11-18 05:12] LABS: Basophils Absolute Auto 0.1 K/mm3 (0.0-0.1); Basophils Percent Auto 0.7 % (0.2-1.2); Eosinophils Absolute Auto 0.1 K/mm3 (0-0.3); Eosinophils Percent Auto 1.7 % (0-4.4); Hematocrit 40.1 % (37.0-47.0); Hemoglobin 12.3 g/dL (12.0-15.0); Immature Granulocyte Absolute 0.03 K/mm3 (0.00-0.031); Immature Granulocyte Percent A 0.4 % (0-0.5); Lymphocytes Absolute Auto 1.53 K/mm3 (0.9-3.2); Lymphocytes Percent Auto 21.5 % (18.3-44.2); Mean Corpuscular HGB Conc 30.7 g/dl (32-36); Mean Corpuscular Hemoglobin 29.4 pg (26-34); Mean Corpuscular Volume 95.9 fl (80-100); Mean Platelet Volume 9.9 fl (7.4-10.4); Monocytes Absolute Auto 0.5 K/mm3 (0.1-0.6); Monocytes Percent Auto 7.3 % (2.6-8.5); Neutrophils Absolute Auto 4.9 K/mm3 (1.3-6.7); Neutrophils Percent Auto 68.4 % (45.5-73.1); Platelet Count Result 270 k/mm3 (150-375); Red Blood Count 4.18 M/mm3 (4.2-5.4); Red Cell Distribution Width 13.2 % (11.5-14.5); White Blood Count 7.1 K/mm3 (4.5-10.0)
[2023-11-18 05:26] LABS: Alanine Aminotransferase 15 U/L (6-35); Albumin Level 3.5 g/dL (3.5-5.1); Alkaline Phosphatase 77 U/L (38-126); Anion Gap 4 mmol/L (4-12); Aspartate Amino Transferase 20 U/L (14-36); Bilirubin,Total 0.2 mg/dL (0.2-1.3); Blood Urea Nitrogen 20 mg/dL (7-17); Carbon Dioxide 30 mmol/L (22-30); Chloride 103 mmol/L (98-107); Estimated CRCL calculation 58 ml/min; Estimated Glomerular Filt Rate 49; Glucose 159 mg/dL (65-110); Potassium 5.1 mmol/L (3.4-5.0); Sodium 137 mmol/L (137-145)
[2023-11-18 07:25] LABS: Glucose Point of Care 137 mg/dl (65-105)
[2023-11-18] MEDS: DOXYCYCLINE HYCLATE 100 MG TABLET PO ×2 (08:36→20:29)
[2023-11-18] MEDS: METOPROLOL SUCCINATE EXT REL 25 MG TABCR PO ×2 (08:36→11:35)
[2023-11-18] MEDS: APIXABAN 5 MG TABLET PO ×2 (08:36→20:29)
[2023-11-18] MEDS: LORATADINE 10 MG TABLET PO (08:36)
[2023-11-18] MEDS: MONTELUKAST SODIUM 10 MG TABLET PO (08:36)
[2023-11-18] MEDS: lisinopriL 5 MG TABLET PO (08:36)
[2023-11-18] MEDS: GABAPENTIN 300 MG CAPSULE PO ×2 (08:36→16:35)
[2023-11-18] MEDS: ATORVASTATIN 10 MG TABLET PO (08:36)
[2023-11-18] MEDS: FLUTICASONE PROPIONATE 0.05% NA SPR 16 GM BTL (*BKC) 2 SPRAY NASAL (09:11)
--- NOTE | 2023-11-18 09:28 | P.PNIM_ITS ---
Progress Note: A&P Assessment and Plan (1) Bilateral cellulitis of lower leg: Code(s): L03.116 - Cellulitis of left lower limb; L03.115 - Cellulitis of right lower limb Status: Acute Assessment and Plan: 11/17/23: * Cellulitis to bilateral lower extremity * Continue Cefepime, Flagyl, Vancomycin * Xray of bilateral tib/fib showing polyarticular osteoarthritis, no other changes mentioned * Blood cultures were obtained and are pending 11/18/23: * Antibiotics changed to Unasyn and Doxycycline * Blood cultures are still pending (2) Atrial fibrillation with RVR: Code(s): I48.91 - Unspecified atrial fibrillation Status: Acute Assessment and Plan: 11/17/23: * Nursing reports the patient is in AFib RVR rate in the 130s, no current history AFib. * Will give 10 mg IV push Cardizem * Start Cardizem drip * Cardiology consulted * Will start Eliquis * Echocardiogram ordered * Ultrasound Doppler of bilateral lower extremity to check for DVT * Transfer to IMU 11/18/23: * Echo shown Normal LV systolic function with an estimated EF of 65-70%, normal diastolic function * Continue Eliquis * Cardiology following and started Metoprolol 25 ER 25mg for rate control * Cardizem was never started. (3) Abnormal urinalysis: Code(s): R82.90 - Unspecified abnormal findings in urine Status: Acute Assessment and Plan: 11/17/23: * UA showing cloudy appearance, 1+ urine protein, positive nitrate, trace leukocyte, 6-10 urine wbc's, 4+ bacteria * Urine culture obtained and is pending * Continue cefepime 11/18/23: * Urine culture is pending * Cefepime changed to Unasyn (4) Type 2 diabetes mellitus with hyperglycemia: Qualifiers: Diabetes mellitus enrollment management director insulin use: with assisted use Qualified Code(s): E11.65 - Type 2 diabetes mellitus with hyperglycemia; Z79.4 - stem mounter (current) use of insulin Code(s): E11.65 - Type 2 diabetes mellitus with hyperglycemia Status: Chronic Assessment and Plan: 11/17/23: * Blood sugars ranging 132-162 * Hgb A1C 8.8 on 05/03/2020 * Will repeat hemoglobin A1c today * Accu checks AC/HS * High-dose SSI ordered * Continue Lantus 60 units at night * Hold mealtime dosing * hypoglycemic protocol in place * Diabetic diet ordered 11/18/23: * Blood glucose 159-197 * Hgb A1C 7.4 * Restart mealtime dosing (5) Asthma with exacerbation: Qualifiers: Asthma persistence: persistent Asthma severity: severe Qualified Code(s): J45.51 - Severe persistent asthma with (acute) exacerbation Code(s): J45.901 - Unspecified asthma with (acute) exacerbation Status: Acute Assessment and Plan: 11/17/23: * Continue Singulair * Will start Claritin, Flonase, albuterol inhaler as needed for shortness of breath and wheezing * Will likely need follow-up with sap business objects consultant on an outpatient basis for PFTs 11/18/23: * No change to current treatment plan (6) Essential hypertension: Code(s): I10 - Essential (primary) hypertension Status: Acute Assessment and Plan: 11/17/23: * Blood pressure ranging 123/86-166/99 * Continue lisinopril 11/18/23: * No change to current treatment plan (7) Hyperlipidemia: Code(s): E78.5 - Hyperlipidemia, unspecified Status: Acute Assessment and Plan: 11/17/23: * Continue aspirin and atorvastatin 11/18/23: * No change to current treatment plan Time Spent With Patient Time with patient: 25 - 35 minutes
--- NOTE | 2023-11-18 09:28 | PM.IMPN ---
Progress Note: A&P Assessment and Plan (1) Bilateral cellulitis of lower leg: Code(s): L03.116 - Cellulitis of left lower limb; L03.115 - Cellulitis of right lower limb Status: Acute Assessment and Plan: 11/17/23: Cellulitis to bilateral lower extremity Continue Cefepime, Flagyl, Vancomycin Xray of bilateral tib/fib showing polyarticular osteoarthritis, no other changes mentioned Blood cultures were obtained and are pending 11/18/23: Antibiotics changed to Unasyn and Doxycycline Blood cultures are still pending (2) Atrial fibrillation with RVR: Code(s): I48.91 - Unspecified atrial fibrillation Status: Acute Assessment and Plan: 11/17/23: Nursing reports the patient is in AFib RVR rate in the 130s, no current history AFib. Will give 10 mg IV push Cardizem Start Cardizem drip Cardiology consulted Will start Eliquis Echocardiogram ordered Ultrasound Doppler of bilateral lower extremity to check for DVT Transfer to IMU 11/18/23: Echo shown Normal LV systolic function with an estimated EF of 65-70%, normal diastolic function Continue Eliquis Cardiology following and started Metoprolol 25 ER 25mg for rate control Cardizem was never started. (3) Abnormal urinalysis: Code(s): R82.90 - Unspecified abnormal findings in urine Status: Acute Assessment and Plan: 11/17/23: UA showing cloudy appearance, 1+ urine protein, positive nitrate, trace leukocyte, 6-10 urine wbc's, 4+ bacteria Urine culture obtained and is pending Continue cefepime 11/18/23: Urine culture is pending Cefepime changed to Unasyn (4) Type 2 diabetes mellitus with hyperglycemia: Qualifiers: Diabetes mellitus ferry terminal agent insulin use: with ferry terminal agent use Qualified Code(s): E11.65 - Type 2 diabetes mellitus with hyperglycemia; Z79.4 - retirement (current) use of insulin Code(s): E11.65 - Type 2 diabetes mellitus with hyperglycemia Status: Chronic Assessment and Plan: 11/17/23: Blood sugars ranging 132-162 Hgb A1C 8.8 on 05/03/2020 Will repeat hemoglobin A1c today Accu checks AC/HS High-dose SSI ordered Continue Lantus 60 units at night Hold mealtime dosing hypoglycemic protocol in place Diabetic diet ordered 8/22/24: Blood glucose 159-197 Hgb A1C 7.4 Restart mealtime dosing (5) Asthma with exacerbation: Qualifiers: Asthma persistence: persistent Asthma severity: severe Qualified Code(s): J45.51 - Severe persistent asthma with (acute) exacerbation Code(s): J45.901 - Unspecified asthma with (acute) exacerbation Status: Acute Assessment and Plan: 11/17/23: Continue Singulair Will start Claritin, Flonase, albuterol inhaler as needed for shortness of breath and wheezing Will likely need follow-up with screw eye assembler on an outpatient basis for PFTs 11/18/23: No change to current treatment plan (6) Essential hypertension: Code(s): I10 - Essential (primary) hypertension Status: Acute Assessment and Plan: 11/17/23: Blood pressure ranging 123/86-166/99 Continue lisinopril 11/18/23: No change to current treatment plan (7) Hyperlipidemia: Code(s): E78.5 - Hyperlipidemia, unspecified Status: Acute Assessment and Plan: 11/17/23: Continue aspirin and atorvastatin 11/18/23: No change to current treatment plan Time Spent With Patient Time with patient: 25 - 35 minutes Subjective Date/time seen: 11/18/23 09:28 Interval history: Interval history: This is a 73-year-old female with a significant past medical history of diabetes, diabetic neuropathy, hypertension, hyperlipidemia, morbid obesity, tobacco abuse, marijuana abuse who presents to the hospital for evaluation cellulitis. Workup in the hospital included a left tib-fib x-ray which showed polyarticular arthritis. She also had a right tib-fib x-ray which showed polyarticular osteoarthritis. Chest x-ray showing ai
[2023-11-18 10:39] LABS: Anion Gap 4 mmol/L (4-12); Blood Urea Nitrogen 20 mg/dL (7-17); Calcium 8.8 mg/dL (8.4-10.2); Carbon Dioxide 31 mmol/L (22-30); Chloride 103 mmol/L (98-107); Estimated CRCL calculation 71 ml/min; Estimated Glomerular Filt Rate > 60; Glucose 139 mg/dL (65-110); Potassium 4.2 mmol/L (3.4-5.0); Sodium 138 mmol/L (137-145)
--- NOTE | 2023-11-18 11:16 | PM.PNCARD ---
Progress Note: A&P Assessment and Plan (1) Atrial fibrillation with RVR: Code(s): I48.91 - Unspecified atrial fibrillation Status: Acute Assessment and Plan: Was in RVR initially, however, she is currently rate controlled. Will transition Metoprolol to 50mg once daily. TSH level normal. Echo with preserved LVEF, no significant valvular disease. [id number] of 4. Anticoagulation for stroke risk reduction indicated. Discussed benefits vs risks of anticoagulation. Patient agreeable to anticoagulation. Agree with Eliquis 5mg BID. Recommend outpatient sleep study. Cardiology will sign off at this time. Will arrange outpatient follow up in our office. Please call us back if needed. (2) Essential hypertension: Code(s): I10 - Essential (primary) hypertension Status: Acute Assessment and Plan: Continue Lisinopril. (3) Hyperlipidemia: Code(s): E78.5 - Hyperlipidemia, unspecified Status: Acute Assessment and Plan: Continue Atorvastatin. (4) Bilateral cellulitis of lower leg: Code(s): L03.116 - Cellulitis of left lower limb; L03.115 - Cellulitis of right lower limb Status: Acute Assessment and Plan: Management as per primary team. (5) Type 2 diabetes mellitus with hyperglycemia: Qualifiers: Diabetes mellitus meterman insulin use: with mcfp use Qualified Code(s): E11.65 - Type 2 diabetes mellitus with hyperglycemia; Z79.4 - watermaster (current) use of insulin Code(s): E11.65 - Type 2 diabetes mellitus with hyperglycemia Status: Chronic Assessment and Plan: Management as per primary team. (6) Tobacco abuse disorder: Code(s): Z72.0 - Tobacco use Status: Acute Assessment and Plan: Encourage smoking cessation. Subjective Date/time seen: 11/18/23 11:16 Interval history: Reason for visit: Atrial fibrillation with RVR HPI: We are consulted for atrial fibrillation. Ann is a 73 year old female with morbid obesity with BMI of 52, hypertension, hyperlipidemia, diabetes mellitus complicated by neuropathy, tobacco abuse, marijuana use who presented with lower extremity cellulitis. Overnight, patient noted to be in atrial fibrillation, which is a new diagnosis for her. Difficult to obtain history from the patient as she keeps falling asleep during the examination. Date of service 11/18: Remains in rate controlled AFIB. Review of Systems Review of Systems: All systems reviewed & are unremarkable except as noted in HPI and below (HPI) Exam Const: General: comfortable and no acute distress Other: Morbidly obese Eyes: General: appearance normal, both eyes and all related structures Sclera: sclerae normal Resp: Effort & Inspection: normal respiratory effort Cardio: Rhythm: abnormal rhythm irregularly irregular Neuro: Speech: normal speech Psych: Mental Status: mental status grossly normal Affect: normal affect Objective Data Vital Signs Vital Signs: Vital Signs - 24 hr 11/17/23 12:00 11/17/23 14:01 11/17/23 14:27 Temperature 36.5 C 36.2 C L Pulse Rate 135 H 114 H 114 H Respiratory Rate 16 22 H Blood Pressure 137/83 131/68 Pulse Oximetry 93 96 Oxygen Delivery 11/17/23 16:00 11/17/23 16:38 11/17/23 16:00 Temperature 36.1 C L Pulse Rate 95 112 H Respiratory Rate 18 Blood Pressure 131/65 Pulse Oximetry 92 Oxygen Delivery Room Air 11/17/23 18:00 11/17/23 19:56 11/17/23 20:00 Temperature 36.4 C Pulse Rate 87 93 Respiratory Rate 22 H Blood Pressure 110/49 L Pulse Oximetry 98 Oxygen Delivery Room Air 11/17/23 20:00 11/17/23 21:19 11/18/23 00:00 Temperature Pulse Rate 88 75 Respiratory Rate Blood Pressure Pulse Oximetry Oxygen Delivery Room Air 11/18/23 00:33 11/18/23 00:00 11/18/23 04:22 Temperature 36.4 C 36.5 C Pulse Rate 85 83 90 Respiratory Rate 22 H 22 H Blood Pressure 125/59 L 146/78 H
[2023-11-18] MEDS: INSULIN ASPART (*BKC) 100 UNITS/ML 10 UNITS SUB-Q ×2 (11:35→16:35)
[2023-11-18 12:06] LABS: Glucose Point of Care 136 mg/dl (65-105)
[2023-11-18 16:33] LABS: Glucose Point of Care 119 mg/dl (65-105)
[2023-11-18 20:12] LABS: Glucose Point of Care 80 mg/dl (65-105)
[2023-11-18] MEDS: CITALOPRAM HYDROBROMIDE 20 MG TABLET 40 MG PO (20:29)
[2023-11-19] VITALS (7 sets, daily range): BP systolic 146–175; BP diastolic 54–95; PULSE 61–91; RESP 20–24; TEMP 36.3–36.9; O2SAT 96–98
[2023-11-19 05:25] LABS: Basophils Absolute Auto 0.1 K/mm3 (0.0-0.1); Basophils Percent Auto 0.8 % (0.2-1.2); Eosinophils Absolute Auto 0.1 K/mm3 (0-0.3); Eosinophils Percent Auto 1.8 % (0-4.4); Hematocrit 39.1 % (37.0-47.0); Hemoglobin 12.1 g/dL (12.0-15.0); Immature Granulocyte Absolute 0.02 K/mm3 (0.00-0.031); Immature Granulocyte Percent A 0.3 % (0-0.5); Lymphocytes Absolute Auto 1.25 K/mm3 (0.9-3.2); Lymphocytes Percent Auto 17.2 % (18.3-44.2); Mean Corpuscular HGB Conc 30.9 g/dl (32-36); Mean Corpuscular Hemoglobin 29.3 pg (26-34); Mean Corpuscular Volume 94.7 fl (80-100); Mean Platelet Volume 9.8 fl (7.4-10.4); Monocytes Absolute Auto 0.6 K/mm3 (0.1-0.6); Monocytes Percent Auto 7.7 % (2.6-8.5); Neutrophils Absolute Auto 5.2 K/mm3 (1.3-6.7); Neutrophils Percent Auto 72.2 % (45.5-73.1); Platelet Count Result 261 k/mm3 (150-375); Red Blood Count 4.13 M/mm3 (4.2-5.4); Red Cell Distribution Width 13.1 % (11.5-14.5); White Blood Count 7.3 K/mm3 (4.5-10.0)
[2023-11-19] MEDS: AMPICILLIN SULB 3 GM/NS 100 ML 3 GM/100 ML VIAL IVPB ×2 (05:26→09:20)
[2023-11-19 05:38] LABS: Alanine Aminotransferase 16 U/L (6-35); Albumin Level 3.4 g/dL (3.5-5.1); Alkaline Phosphatase 79 U/L (38-126); Anion Gap 6 mmol/L (4-12); Aspartate Amino Transferase 19 U/L (14-36); Bilirubin,Total 0.4 mg/dL (0.2-1.3); Blood Urea Nitrogen 23 mg/dL (7-17); Calcium 8.9 mg/dL (8.4-10.2); Carbon Dioxide 29 mmol/L (22-30); Chloride 103 mmol/L (98-107); Estimated CRCL calculation 79 ml/min; Estimated Glomerular Filt Rate > 60; Glucose 111 mg/dL (65-110); Potassium 4.6 mmol/L (3.4-5.0); Sodium 138 mmol/L (137-145)
[2023-11-19 06:37] LABS: Glucose Point of Care 111 mg/dl (65-105)
[2023-11-19] MEDS: METOPROLOL SUCCINATE EXT REL 50 MG TABCR PO (09:19)
[2023-11-19] MEDS: LORATADINE 10 MG TABLET PO (09:19)
[2023-11-19] MEDS: MONTELUKAST SODIUM 10 MG TABLET PO (09:19)
[2023-11-19] MEDS: ATORVASTATIN 10 MG TABLET PO (09:20)
[2023-11-19] MEDS: APIXABAN 5 MG TABLET PO (09:20)
[2023-11-19] MEDS: FLUTICASONE PROPIONATE 0.05% NA SPR 16 GM BTL (*BKC) 2 SPRAY NASAL (09:20)
[2023-11-19] MEDS: GABAPENTIN 300 MG CAPSULE PO (09:20)
[2023-11-19] MEDS: lisinopriL 5 MG TABLET PO (09:20)
[2023-11-19] MEDS: DOXYCYCLINE HYCLATE 100 MG TABLET PO (09:20)
--- NOTE | 2023-11-19 11:02 | PM.DS ---
DS: Admitting Diagnosis Discharge Date 11/19/23 Admitting Diagnosis Bilateral cellulitis of lower leg Atrial fibrillation with RVR Abnormal urinalysis Type 2 diabetes mellitus with hyperglycemia Asthma with exacerbation Essential hypertension Hyperlipidemia DS: Discharge Diagnosis Discharge Diagnosis (1) Bilateral cellulitis of lower leg: Code(s): L03.116 - Cellulitis of left lower limb; L03.115 - Cellulitis of right lower limb Status: Acute (2) Atrial fibrillation with RVR: Code(s): I48.91 - Unspecified atrial fibrillation Status: Acute (3) Abnormal urinalysis: Code(s): R82.90 - Unspecified abnormal findings in urine Status: Acute (4) Type 2 diabetes mellitus with hyperglycemia: Qualifiers: Diabetes mellitus 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 for medical 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 insulin use: with care home use Qualified Code(s): E11.65 - Type 2 diabetes mellitus with hyperglycemia; Z79.4 - custodial (current) use of insulin Code(s): E11.65 - Type 2 diabetes mellitus with hyperglycemia Status: Chronic (5) Asthma with exacerbation: Qualifiers: Asthma persistence: persistent Asthma severity: severe Qualified Code(s): J45.51 - Severe persistent asthma with (acute) exacerbation Code(s): J45.901 - Unspecified asthma with (acute) exacerbation Status: Acute (6) Essential hypertension: Code(s): I10 - Essential (primary) hypertension Status: Acute (7) Hyperlipidemia: Code(s): E78.5 - Hyperlipidemia, unspecified Status: Acute DS: Summary Hospital Course Reason for hospitalization: Bilateral cellulitis of lower leg Atrial fibrillation with RVR Abnormal urinalysis Type 2 diabetes mellitus with hyperglycemia Asthma with exacerbation Essential hypertension Hyperlipidemia Hospital Course: This is a 73-year-old female with a significant past medical history of diabetes, diabetic neuropathy, hypertension, hyperlipidemia, morbid obesity, tobacco abuse, marijuana abuse who presents to the hospital for evaluation cellulitis. Workup in the hospital included a left tib-fib x-ray which showed polyarticular arthritis. She also had a right tib-fib x-ray which showed polyarticular osteoarthritis. Chest x-ray showing airspace opacities in right mid lung zone consistent with atelectasis versus pneumonia. Initial labs showed a C reactive protein of 3.3, proBNP 1220, ESR 30, white blood cell count was normal at 8.4. A UA was obtained which showed a cloudy appearance, 1+ urine protein, positive nitrate, trace leukocyte, 6-10 urine WBC, 4+ urine bacteria. Blood and urine cultures were obtained and are pending. Patient was started on cefepime, Flagyl, vancomycin. Patient was originally admitted to a med surge floor on telemetry and nursing reported that she was in AFib RVR with a rate of 130 which is new for her. She was sent to the IMU for closer monitoring. Cardiology was consulted and placed patient on metoprolol ER 50 mg daily for rate control and she was placed on Eliquis 5 mg b.i.d.. Today she is rate controlled in the 70s to 80s. Her urine culture came back with E coli on final read. Her antibiotics switched from cefepime, Flagyl, vancomycin to Unasyn and doxycycline for better coverage of her leg wound. Today we switched Unasyn to Augmentin and she will need to finish the course of her Augmentin and doxycycline. She is stable for discharge at this time. She will need to follow up with her primary care physician in 1 week. She will also need to follow up with Cardiology in 2 weeks. It is possible that she does have a COPD component as she is a current every day smoker. I did put in a referral for her to follow-up with the informatics nurse for pulmonary function tests. She was given a script for albuterol rescue inhaler as she has not had 1 at home. It was also noted for her to get a sleep study to check for sleep apnea on an outpatient basis by Cardiology. This information was given to the patient
[2023-11-19 11:26] LABS: Glucose Point of Care 133 mg/dl (65-105)
== END 2023-11-19 13:41 | disposition home or self-care (01) ==
LOC: ANHED 11-17 03:15 → ANH2MED 11-17 04:51 → ANHIMU 11-17 14:42 → ANH2MED 11-22 08:29 → ANHIMU 11-22 08:29
PROVIDERS: Internal Medicine; Nurse Practitioner Acute Care; Admitting Provider Internal Medicine; Emergency Provider Emergency Medicine; PCP Nurse Practitioner; Visit Provider Internal Medicine
DX: L03.116 Cellulitis of left lower limb (principal); L03.115 Cellulitis of right lower limb; I48.91 Unspecified atrial fibrillation; R82.90 Unspecified abnormal findings in urine; E11.65 Type 2 diabetes mellitus with hyperglycemia; Z79.4 Long term (current) use of insulin; J45.51 Severe persistent asthma with (acute) exacerbation; E11.40 Type 2 diabetes mellitus with diabetic neuropathy, unspecified; I10 Essential (primary) hypertension; E66.01 Morbid (severe) obesity due to excess calories; Z68.43 Body mass index [BMI] 50.0-59.9, adult; E78.5 Hyperlipidemia, unspecified; F17.210 Nicotine dependence, cigarettes, uncomplicated; F12.10 Cannabis abuse, uncomplicated; Z79.82 Long term (current) use of aspirin
CPT/HCPCS: 36415; 36600; 71045; 73590; 80048; 80053; 81001; 82805; 82948; 83036; 83605; 83735; 83880; 84145; 84443; 85025; 85610; 85652; 85730; 86140; 87040; 87077; 87086; 87088; 87186; 93005; 93971; 96365; 96366; 96367; 96372; 96375; 96376; 99285; A9270; C8929; G0378; J0295; J0692; J1650; J1815; J1836; J3370; Q9957

== ENCOUNTER 2024-05-03 15:11 | Inpatient (IN) | payer MEDICARE, SELFPAY ==
[2024-05-03] VITALS (20 sets, daily range): BP systolic 142–181; BP diastolic 80–121; PULSE 92–120; RESP 16–43; O2SAT 88–100
--- NOTE | ~2024-05-03 | XR_ITS ---
EXAMINATION: XR chest PICC line DATE: 05/04/2024 13:53 INDICATION: Central line placement. TECHNIQUE: A single frontal view of the chest was obtained on 2 radiographs. COMPARISON: Chest single view at 5:54 AM, chest CT 05/03/2024 FINDINGS: There are airspace opacities in the lower lung zones and right perihilar region. A calcifie d right lung nodule and calcified right hilar lymph nodes are consistent with old granulomatous disea se. No pleural effusion or pneumothorax. Cardiomegaly is noted. The endotracheal tube tip is 2.2 cm a jaxson the nancy. The nasogastric tube tip is beyond the inferior margin of the radiograph, but at [place] st to the stomach. A left upper extremity peripherally inserted central venous catheter (PICC) is see n with tip in the right atrium. IMPRESSION: 1. PICC tip in the right atrium. 2. Airspace opacities in the lower lung zones and right perihilar region with worsening on the left, consistent with pneumonia. 3. Cardiomegaly. Reviewed, dictated and finalized at location A. ANALYST IMPRESSION: 1. PICC tip in the right atrium. 2. Airspace opacities in the lower lung zones and right perihilar region with w orsening on the left, consistent with pneumonia. 3. Cardiomegaly.
--- NOTE | ~2024-05-03 | XR_ITS ---
Portable chest x-ray Comparison: 05/03/2024 Clinical History: ET tube placement Findings: Endotracheal tube and NG tube are in satisfactory positions. There is patchy bilateral air space disease with probable small right pleural effusion. Cardiomediastinal silhouette is stable. Nicholas jose and soft tissues are unremarkable. Impression: Patchy bilateral airspace disease suggests moderate pulmonary edema/atelectasis. Correlate clinically for pneumonia. Small right pleural effusion. Support tubes, as above. Reviewed, dictated and finalized at [facility]. ER/WAITRESS FIRST CLASS Impression: Patchy bilateral airspace disease suggests moderate pulmonary edema/atelectasis . Correlate clinically for pneumonia. Small right pleural effusion. Support tubes, as above.
--- NOTE | ~2024-05-03 | XR_ITS ---
Portable chest x-ray Comparison: 05/07/2024 Clinical History: Respiratory failure Findings: Endotracheal tube, NG tube, and left-sided central venous line are in satisfactory positio ns. There is patchy perihilar and bibasilar airspace consolidation. Questionable minimal pleural effu sions. Cardiomediastinal silhouette is stable. Bones and soft tissues are unremarkable. Impression: Stable patchy bibasilar and perihilar airspace disease. Correlate for pulmonary edema/atelectasis luis e delonte pneumonia. Possible minimal pleural effusions. Support tubes, as above. Reviewed, dictated and finalized at location . ING MACHINE OFFBEARER Impression: Stable patchy bibasilar and perihilar airspace disease. Correlate for pulmonary edema/atelectasis versus pneumonia. Possible minimal pleural effusions. Support tubes, as above.
--- NOTE | ~2024-05-03 | XR_ITS ---
Portable chest x-ray Comparison: 05/09/2024 Clinical History: Respiratory failure Findings: Endotracheal tube, NG tube, and left-sided PICC line are in place. Extensive bilateral air space disease is again present. Probable small right pleural effusion. Cardiomediastinal silhouette is stable. Bones and soft tissues are unremarkable. Impression: Extensive bilateral airspace disease. Correlate for pulmonary edema versus bilateral pneumonia. Minimal right pleural effusion. Stable support tubes. Reviewed, dictated and finalized at [facility]. COMMUNICATIONS SALES REPRESENTATIVE Impression: Extensive bilateral airspace disease. Correlate for pulmonary edema versus bila teral pneumonia. Minimal right pleural effusion. Stable support tubes.
--- NOTE | ~2024-05-03 | XR_ITS ---
CHEST RADIOGRAPH CLINICAL HISTORY: SOB . COMPARISON: 11/17/2023 TECHNIQUE: Single portable view of the chest. FINDINGS Elevation of the right hemidiaphragm. Redemonstration of airspace opacification within the right mid to lower lung field. Cardiomediastinal silhouette is enlarged, unchanged. Calcified lymph nodes within the mediastinum with a calcified granuloma in the right lower lobe, unch anged, representing prior granulomatous disease IMPRESSION: Airspace opacification within the right mid to lower lung field, unchanged from prior. Reviewed, dictated and finalized at location A. CE COMMUNICATION PROFESSOR
--- NOTE | ~2024-05-03 | XR_ITS ---
EXAMINATION: XR chest 1V portable DATE: 05/13/2024 05:52 INDICATION: Respiratory failure and pneumonia TECHNIQUE: frontal view of the chest was obtained. COMPARISON: Chest radiograph dated 05/12/2024 FINDINGS: Endotracheal tube tip 1.8 cm above the nancy. Nasogastric tube extends below the left hemidiaphragm with distal tip collimated off the study. Left upper extremity peripherally inserted central venous catheter (PICC) tip at the superior cavoatrial junction. Unchanged elevation the right hemidiaphragm. Persistent airspace opacities in the bilateral lower braden g zones. No pulmonary edema, pleural effusion or pneumothorax. Calcified nodule at the right lung bas e and calcified right hilar lymph nodes consistent with old granulomatous disease. Cardiomegaly. IMPRESSION: 1. Unchanged airspace opacities in the bilateral lower lung zones which could represent atelectasis a nd/or pneumonia. 2. Cardiomegaly. Reviewed, dictated and finalized at location A. ABRICATED HOUSES TRIMMER IMPRESSION: 1. Unchanged airspace opacities in the bilateral lower lung zones which could r epresent atelectasis and/or pneumonia. 2. Cardiomegaly.
--- NOTE | ~2024-05-03 | XR_ITS ---
EXAMINATION: XR chest 1V portable DATE: 05/12/2024 06:17 INDICATION: Respiratory failure. Pneumonia. TECHNIQUE: A single frontal view of the chest was obtained. COMPARISON: Chest single view 05/11/2024, chest CT 05/03/2024 FINDINGS: There are airspace opacities in all right lung zones and in left mid and lower lung zones. Calcified right lung nodules and calcified right hilar lymph nodes are consistent with old granulomat ous disease. No pleural effusion or pneumothorax. Cardiomegaly is noted. The endotracheal tube tip is 2.3 cm above the nancy. A left upper extremity peripherally inserted central venous catheter (PICC) is seen with tip at the superior cavoatrial junction. The nasogastric tube tip is beyond the inferio r margin of the radiograph, but at least to the stomach. IMPRESSION: 1. Stable diffuse lung disease, consistent with pneumonia. 2. Cardiomegaly. Reviewed, dictated and finalized at location A. EL TELLER
--- NOTE | ~2024-05-03 | XR_ITS ---
Upright portable view of the abdomen Clinical history: NG tube placement Findings: NG tube in satisfactory position. Bowel gas pattern is nonspecific. No evidence for obstruc tion or free air. No abnormal mass lesion or calcification is seen. Osseous structures are intact. Impression: NG tube in satisfactory position. Reviewed, dictated and finalized at [facility]. HEARTH FURNACE LABORER Impression: NG tube in satisfactory position.
--- NOTE | ~2024-05-03 | XR_ITS ---
Portable chest x-ray Comparison: 05/23/2024 Clinical History: Shortness of breath Findings: Left-sided PICC line in place. There is extensive hazy bilateral airspace disease, especia lly right midlung upper lobe and left lower lobe. No definite pleural effusion. Cardiomediastinal si lhouette is stable. Bones and soft tissues are unremarkable. Impression: Moderate to advanced pulmonary edema pattern versus bilateral pneumonia. Correlate clinically. Left-sided PICC line. Reviewed, dictated and finalized at location . LFISH BED WORKER Impression: Moderate to advanced pulmonary edema pattern versus bilateral pneumonia. Correl ate clinically. Left-sided PICC line.
--- NOTE | ~2024-05-03 | XR_ITS ---
Portable chest x-ray Comparison: 05/04/2024 Clinical History: Respiratory failure Findings: Endotracheal tube, NG tube, and left-sided PICC line are in place. There is central conges tive change and probable mild to moderate pulmonary edema pattern. Probable left basilar atelectasis and small left pleural effusion. Cardiomediastinal silhouette is stable. Bones and soft tissues are unremarkable. Impression: Mild to moderate probable pulmonary edema pattern with left basilar atelectasis and small left pleura l effusion. Correlate clinically for pneumonia. Support tubes, as above. Reviewed, dictated and finalized at [facility]. AGE SPECIALIST Impression: Mild to moderate probable pulmonary edema pattern with left basilar atelectasis and small left pleural effusion. Correlate clinically for pneumonia. Support tubes, as above.
--- NOTE | ~2024-05-03 | US_ITS ---
EXAMINATION: US renal BI DATE: 05/05/2024 08:05 INDICATION: Acute kidney injury. TECHNIQUE: Multiple ultrasound grayscale images of the kidneys were obtained. COMPARISON: CT 05/03/2024 FINDINGS: The right kidney measures 12.1 x 5.3 x 5.4 cm. The left kidney measures 12.7 x 6.5 x 4.5 cm. The kidn eys demonstrate normal parenchymal echogenicity. There is no hydronephrosis. The bladder is decompres sed by a Archuleta catheter. IMPRESSION: 1. Normal kidneys. No hydronephrosis. Reviewed, dictated and finalized at location A. KMASON APPRENTICE
--- NOTE | ~2024-05-03 | CT_ITS ---
History: Fall PROCEDURE: CT head without contrast. Examination is markedly limited by motion artifact COMPARISON: None TECHNIQUE: Axial imaging of the head performed from the skull base to the vertex without IV contrast. Sagittal a nd coronal reformations obtained. DLP: 1360 mGy-cm FINDINGS: The ventricles are enlarged. The dilatation of the ventricles is proportional to the degree of sulcal prominence, not uncommon in the senescent brain. Decreased attenuation is identified within the periventricular white matter, likely secondary to micr ovascular ischemic disease, in a patient of this age. There is no mass, mass effect or midline shift. There is no abnormal extra-axial fluid collection or intracranial hemorrhage. Visualized paranasal sinuses are clear. The mastoid air cells are well aerated. Left frontal scalp hematoma without underlying fracture. Impression: No acute intracranial hemorrhage or suspicious mass effect. Left frontal scalp hematoma without underlying fracture. Reviewed, dictated and finalized at location A. E CRITIC Impression: No acute intracranial hemorrhage or suspicious mass effect. Left frontal scalp hematoma without underlying fracture.
--- NOTE | ~2024-05-03 | XR_ITS ---
EXAMINATION: XR chest 1V portable DATE: 05/21/2024 08:16 INDICATION: Shortness of breath. TECHNIQUE: A single frontal view of the chest was obtained. COMPARISON: Chest single view 05/20/2024, chest CT 05/03/2024 FINDINGS: Again seen is mild elevation of right hemidiaphragm. There is a diffuse interstitial patter n in the lungs. There are airspace opacities in all right lung zones and in left mid and lower lung z ones. No pleural effusion or pneumothorax. Cardiomegaly is noted. A left upper extremity peripherally inserted central venous catheter (PICC) is seen with tip at the superior cavoatrial junction. IMPRESSION: 1. Worsened diffuse lung disease, consistent with pulmonary edema versus pneumonia. 2. Cardiomegaly. Reviewed, dictated and finalized at location A. EATIONAL VEHICLE REPAIRER IMPRESSION: 1. Worsened diffuse lung disease, consistent with pulmonary edema versus pneumo fany. 2. Cardiomegaly.
--- NOTE | ~2024-05-03 | XR_ITS ---
EXAMINATION: XR chest 1V portable DATE: 05/06/2024 05:46 INDICATION: Respiratory failure. TECHNIQUE: A single frontal view of the chest was obtained. COMPARISON: Chest single view 05/05/2024 FINDINGS: There is elevation of right hemidiaphragm. There are airspace opacities in the perihilar re gions and lower lung zones. A calcified right lung nodule and calcified right hilar lymph nodes are c onsistent with old granulomatous disease. No pleural effusion or pneumothorax. Cardiomegaly is noted. The endotracheal tube tip is 2.7 cm above the nancy. A left upper extremity peripherally inserted c entral venous catheter (PICC) is seen with tip in the right atrium. The nasogastric tube tip is beyon d the inferior margin of the radiograph, but at least to the stomach. Surgical clips in the right upp er quadrant are likely from cholecystectomy. IMPRESSION: 1. Stable airspace opacities in the perihilar regions and lower lung zones, consistent with pneumonia . 2. Cardiomegaly. Reviewed, dictated and finalized at location A. HER SPECIALIST IMPRESSION: 1. Stable airspace opacities in the perihilar regions and lower lung zones, con sistent with pneumonia. 2. Cardiomegaly.
--- NOTE | ~2024-05-03 | XR_ITS ---
Portable chest x-ray Comparison: 05/10/2024 Clinical History: Respiratory failure Findings: Endotracheal tube, NG tube, and left-sided PICC line are in place. Patchy bilateral airspa ce consolidation and present. No definite pleural effusions. Cardiomediastinal silhouette is stable. Bones and soft tissues are unremarkable. Impression: Patchy bilateral airspace consolidation. Correlate for moderate to advanced pulmonary edema versus bi lateral pneumonia. Support tubes, as above. Reviewed, dictated and finalized at [facility]. NDWATER MONITORING TECHNICIAN Impression: Patchy bilateral airspace consolidation. Correlate for moderate to advanced pul monary edema versus bilateral pneumonia. Support tubes, as above.
--- NOTE | ~2024-05-03 | CT_ITS ---
History: Fall PROCEDURE: CT cervical spine without intravenous contrast. COMPARISON: None TECHNIQUE: Multiple contiguous axial images of the cervical spine were performed without the administration of i ntravenous contrast. DLP: 457 mGy-cm FINDINGS: Straightening of the normal curvature of the cervical spine is identified, likely muscular in origin. No acute fractures are present. Significant degenerative disease is identified, with osteophyte formation, disc space narrowing, and endplate changes. The bilateral lung apices are unremarkable. No soft tissue abnormality is present. The airway is patent. Impression: Straightening of the normal curvature of the cervical spine, likely muscular in origin. Degenerative disease, without acute fracture. Reviewed, dictated and finalized at location A. ROOM TECHNICIAN Impression: Straightening of the normal curvature of the cervical spine, likely muscular in origin. Degenerative disease, without acute fracture.
--- NOTE | ~2024-05-03 | XR_ITS ---
EXAMINATION: XR abdomen obstructive series DATE: 05/08/2024 08:16 INDICATION: Ileus versus small bowel obstruction TECHNIQUE: Frontal supine and upright views of the abdomen were obtained. COMPARISON: None. FINDINGS: Nasogastric tube tip in proximal side port in the body of the stomach. Cholecystectomy clips in right upper quadrant. No dilated loops of gas-filled bowel to suggest obstruction. No free intraperitoneal gas. Calcified nodule in the right lung base and calcified right hilar lymph nodes consistent with old granulomatous disease. Airspace opacities in the right mid and left lower lung zones consistent with atelectasis or pneumonia. IMPRESSION: 1. No free intraperitoneal gas or dilated gas-filled loops of bowel to suggest obstruction. 2. Bilateral airspace opacities consistent with atelectasis or pneumonia. Reviewed, dictated and finalized at location A. KROOM SUPERVISOR
--- NOTE | ~2024-05-03 | XR_ITS ---
EXAMINATION: XR chest 1V portable DATE: 05/20/2024 16:24 INDICATION: Shortness of breath. TECHNIQUE: A single frontal view of the chest was obtained on 2 radiographs. COMPARISON: Chest single view 05/14/2024, chest CT 05/03/2024 FINDINGS: Again seen is elevation of right hemidiaphragm. A calcified right lung nodule and calcified right hilar lymph nodes are consistent with old granulomatous disease. There are airspace and inters titial opacities throughout the lungs bilaterally. No pleural effusion or pneumothorax. Cardiomegaly is noted. A left upper extremity peripherally inserted central venous catheter (PICC) is seen with ti p at the superior cavoatrial junction. IMPRESSION: 1. Mildly worsening diffuse lung disease, consistent with pulmonary edema versus pneumonia. 2. Cardiomegaly. Reviewed, dictated and finalized at location A. EMIC SERVICES PROFESSIONAL IMPRESSION: 1. Mildly worsening diffuse lung disease, consistent with pulmonary edema versu s pneumonia. 2. Cardiomegaly.
--- NOTE | ~2024-05-03 | XR_ITS ---
EXAMINATION: XR chest 1V portable DATE: 05/07/2024 06:19 INDICATION: Respiratory failure requiring intubation TECHNIQUE: frontal view of the chest was obtained. COMPARISON: Chest radiograph dated 05/06/2024 FINDINGS: Endotracheal tube tip 1.4 cm above the nancy. Nasogastric tube extends below the left hemidiaphragm with distal tip collimated off the study. Left upper extremity peripherally inserted central venous catheter (PICC) tip at the high right atrium. There is no elevation the right hemidiaphragm. Persistent airspace opacities at the bilateral lower l nelli zones in the perihilar mid lung zones consistent with pneumonia. Calcified nodule at the right alphonso ng base along with calcified right hilar and mediastinal lymph nodes consistent with old granulomatou s disease. No pleural effusion or pneumothorax. Heart size is normal. IMPRESSION: 1. Persistent opacities in the bilateral perihilar and lower lung zones consistent with pneumonia. Reviewed, dictated and finalized at location A. ITIONAL SERVICES DIRECTOR IMPRESSION: 1. Persistent opacities in the bilateral perihilar and lower lung zones consist ent with pneumonia.
--- NOTE | ~2024-05-03 | XR_ITS ---
Portable chest x-ray Comparison: 05/08/2024 Clinical History: Respiratory failure Findings: Endotracheal tube, NG tube, and left-sided central venous line are in satisfactory positio ns. Extensive patchy airspace disease is similar to prior exam. Possible minimal right pleural effusi on. Cardiomediastinal silhouette is stable. Bones and soft tissues are unremarkable. Impression: Extensive patchy airspace disease and minimal right pleural effusion are unchanged. Correlate for pul monary edema/atelectasis versus pneumonia. Stable support tubes. Reviewed, dictated and finalized at location . LOPMENT REP Impression: Extensive patchy airspace disease and minimal right pleural effusion are unchan ged. Correlate for pulmonary edema/atelectasis versus pneumonia. Stable support tubes.
--- NOTE | ~2024-05-03 | XR_ITS ---
CHEST RADIOGRAPH CLINICAL HISTORY: Respiratory failure, pneumonia . COMPARISON: 05/13/2024 TECHNIQUE: Single portable view of the chest. FINDINGS Left upper extremity PICC line tip projecting over the cavoatrial junction. Endotracheal tube is identified with its tip projecting approximately 2 cm above the base of the mily na. Nasogastric tube identified with its tip extending below the left hemidiaphragm, presumably within th e stomach. The remainder of the cardiomediastinal silhouette is enlarged, but otherwise unremarkable. Blunting of the bilateral costophrenic sulci suggesting small bilateral pleural effusions. The remainder of the lungs are clear. IMPRESSION: Small bilateral pleural effusions. Supportive lines and tubes in good position. Reviewed, dictated and finalized at location A. BILITATION COUNSELOR
--- NOTE | ~2024-05-03 | XR_ITS ---
Portable chest x-ray Comparison: 05/21/2024 Clinical History: Shortness of breath Findings: Left-sided PICC line in place. There is been significant interval improvement in right lung airspace consolidation since prior exam. There is persistent left basilar/perihilar airspace consoli dation. There is probable central congestive change. Cardiomediastinal silhouette is stable. Bones a nd soft tissues are unremarkable. Impression: Persistent left basilar/perihilar airspace consolidation which could reflect atelectasis/edema versus pneumonia. Significant interval improvement in right lung airspace disease since prior exam. Reviewed, dictated and finalized at location M. CLEANER OPERATOR Impression: Persistent left basilar/perihilar airspace consolidation which could reflect at electasis/edema versus pneumonia. Significant interval improvement in right lung airspace disease since prior exa m.
--- NOTE | ~2024-05-03 | XR_ITS ---
Portable chest x-ray Comparison: 05/22/2024 Clinical History: Shortness of breath Findings: Stable left-sided PICC line. There is worsening hazy right basilar and right midlung airspa ce disease. Persistent left infrahilar airspace consolidation. Stable elevation right hemidiaphragm. Cardiomediastinal silhouette is stable. Bones and soft tissues are unremarkable. Impression: Worsening hazy right basilar/perihilar airspace disease, with persistent left lower lobe airspace dis ease. Correlate for worsening pulmonary edema versus pneumonia. Support line, as above. Reviewed, dictated and finalized at location . RED BUCKLE ASSEMBLER Impression: Worsening hazy right basilar/perihilar airspace disease, with persistent left l ower lobe airspace disease. Correlate for worsening pulmonary edema versus pneu monia. Support line, as above.
--- NOTE | ~2024-05-03 | CT_ITS ---
CLINICAL INDICATION: Fall COMPARISON: None. Reference was made to CT examination of the abdomen and pelvis dated 07/18/2016. TECHNIQUE: An enhanced CT of the abdomen and pelvis was performed utilizing multislice spiral YOHO ue reconstructed at 5 mm slice thickness. Coronal and sagittal reconstructions were performed. This CT examination was performed utilizing dose reduction techniques. DLP: 1880 mGy-cm FINDINGS/OBSERVATIONS: Lun mm granuloma within the right lower lobe. Right basilar atelectasis. Patchy consolidation within the right middle lobe, with air bronchograms. The remainder of the lungs are clear. The heart is of normal size, without pericardial effusion. Mediastinum: No pathologically enlarged or morphologically suspicious lymph nodes are identified within the spinal , bilateral axilla, within the soft tissues of the anterior chest wall. Calcified lymph nodes are identified within the mediastinum, suggesting prior granulomatous disease. The largest lymph node is within the right hilum with dense calcifications. Soft tissues of the chest: Unremarkable. Bones of the chest: No acute compression fracture. No lytic or blastic lesions are identified. Liver: The liver enhances homogeneously and is not enlarged measuring 18 cm in longitudinal dimension. No pe rihepatic fluid to suggest acute traumatic injury. Gallbladder and biliary system: The gallbladder is surgically absent. Pancreas: The pancreas enhances homogeneously, without ductal dilatation. No peripancreatic fluid to suggest ac pari traumatic injury. Spleen: The spleen demonstrates mixed attenuation, likely secondary to motion artifact. Bulky calcifi cation within the spleen, unchanged dating back to 2017 The morphology of the spleen is also unchanged from 2017. No perisplenic fluid to suggest acute traumatic injury. Kidneys: The bilateral kidneys enhance symmetrically without hydronephrosis or renal calculi. No perirenal fluid to suggest acute traumatic injury. Adrenal glands: Unremarkable. Gastrointestinal tract: Trace fecal stasis. Appendix: The air-filled appendix is of normal caliber (axial series, images 132 through 149). Vasculature: Moderate calcified atherosclerotic disease is present. No aneurysmal dilatation. Lymph nodes: Scattered nonpathologically enlarged lymph nodes within the root of the mesentery and deep in the pel vis. Pelvic structures: The bladder is minimally distended and contains nondependent air for which instrumentation is suspect ed. No surrounding free fluid within the pelvis to suggest acute traumatic bladder injury. The uterus is anteverted and anteflexed, and otherwise unremarkable. Body wall and musculoskeletal: Fat-containing supraumbilical hernia. rectus diastases is also present. Degenerative disease is identified within the lumbosacral spine at the level of L5/S1 with osteophyte formation, disc space narrowing, endplate changes and vacuum phenomena. No acute compression fracture is present within the lumbosacral spine. IMPRESSION: No cross-sectional imaging evidence of acute traumatic injury. Innumerable nonacute findings, as detailed above. Reviewed, dictated and finalized at location A. LAY DEPARTMENT MANAGER
--- NOTE | 2024-05-03 15:40 | ECG_ITS ---
Test Date: 2024-05-03 15:44:47 Measurements Intervals [place] Rate: 109 P: 0 KS: 0 QRS: 105 QRSD: 85 T: 51 QT: 325 QTc: 439 Interpretive Statements ATRIAL FIBRILLATION WITH RAPID VENTRICULAR RESPONSE WITH ABERRANT CONDUCTION OR VENTRICULAR PREMATURE COMPLEXES RIGHT AXIS DEVIATION POSSIBLE RIGHT VENTRICULAR CONDUCTION DELAY CANNOT R/O SEPTAL INFARCT, AGE INDETERMINATE BORDERLINE ST-T WAVE ABNORMALITY- INFERIOR LEADS BASELINE ARTIFACT- I, II, III, AVR, AVL, AVF, V2-V3 ABNORMAL ECG Compared to ECG 11/17/2023 03:18:58 NO SIGNIFICANT CHANGE Electronically Signed On 05-03-2024 15:47:18 [employer] by Stefano Ford D.O.
[2024-05-03 16:06] LABS: Basophils Percent Auto 0.4 % (0.2-1.2); Hematocrit 44.8 % (37.0-47.0); Immature Granulocyte Absolute 0.03 K/mm3 (0.00-0.031); Immature Granulocyte Percent A 0.4 % (0-0.5); Lymphocytes Absolute Auto 0.76 K/mm3 (0.9-3.2); Lymphocytes Percent Auto 10.4 % (18.3-44.2); Mean Corpuscular HGB Conc 31.3 g/dl (32-36); Mean Corpuscular Volume 92.9 fl (80-100); Mean Platelet Volume 10.4 fl (7.4-10.4); Monocytes Absolute Auto 0.8 K/mm3 (0.1-0.6); Monocytes Percent Auto 10.5 % (2.6-8.5); Neutrophils Absolute Auto 5.7 K/mm3 (1.3-6.7); Neutrophils Percent Auto 78.3 % (45.5-73.1); Platelet Count Result 223 k/mm3 (150-375); Red Blood Count 4.82 M/mm3 (4.2-5.4); Red Cell Distribution Width 14.2 % (11.5-14.5); White Blood Count 7.3 K/mm3 (4.5-10.0)
[2024-05-03 16:19] LABS: Alanine Aminotransferase 35 U/L (6-35); Albumin Level 3.8 g/dL (3.5-5.1); Alkaline Phosphatase 119 U/L (38-126); Anion Gap 11 mmol/L (4-12); Aspartate Amino Transferase 30 U/L (14-36); Bilirubin,Total 0.7 mg/dL (0.2-1.3); Blood Urea Nitrogen 19 mg/dL (7-17); Calcium 9.2 mg/dL (8.4-10.2); Carbon Dioxide 24 mmol/L (22-30); Chloride 98 mmol/L (98-107); Estimated Glomerular Filt Rate > 60; Glucose 293 mg/dL (65-110); Potassium 4.6 mmol/L (3.4-5.0); Sodium 133 mmol/L (137-145)
[2024-05-03 16:32] LABS: Add Urine Microscopic? YES; Appearance Urine Clear (Clear); Bacteria Urine 2+ /hpf; Bilirubin Urine Negative (Negative); Blood Urine 3+ (Negative); Color Urine Dark Yellow (Yellow); Glucose Urine UA 3+ mg/dL (Negative); Hyaline Casts Urine Present /lpf; Ketones Urine Negative (Negative); Leukocyte Esterase Ur Negative LEU/UL (Negative); Nitrate Urine Positive (Negative); Non Pathogenic Casts >20; Protein Urine 4+ mg/dL (Negative); Specific Grav Ur 1.033 (1.001-1.035); Squamous Epithelial Cell Urine Occasional /hpf (Few); pH Urine 5.5 (5.0-9.0)
--- OUTSIDE RECORDS SUMMARY | 2024-05-03 18:08 | XMS_ITS | CONTINUITY OF CARE DOCUMENT ---
Author Name christina vasquez Address Unknown Organization [facility] Address [address] [address] [place] [address] Phone [phone] Care Team Providers Care Medical Imaging Director Name Role Phone Facundo MOODY, Diego Unavailable [phone] LITTLE LOFTON NP Unavailable INSURANCE PROVIDERS Payer name Policy type / Coverage type [place] [employer] ID [employer] Medicaid 2 [id number] [facility] [id number]
--- OUTSIDE RECORDS SUMMARY | 2024-05-03 18:09 | XMS_ITS | Data Portability ---
Author Organization [facility] Address [address] [place] [address] Assessment No assessment recorded. Plan of Treatment Reminders Order Date Submit Date Provider Last Modified By Organization Details Last Modified Time Details Appointments None recorded. Lab TSH + free T4, serum 2017 [facility], [address] [place], [place] [address]om[address] T[address], [address], [place], [address], 8 12:25:59 HbA1c (hemoglobi n A1c), blood 2017 [facility], [facility] [facility] [address], [address], [place], [address], 8 12:22:14 CMP, serum or plasma 2017 [facility], [address] [place], [place] [address]om[address], [address], [place], [address], 8 12:22:13 lipid panel, serum 2017 [facility], [facility] [employer] [address], [address], [place], [address], 8 12:26:00 CK (creatine kinase), total, serum 2017 [facility], [address], [address], [place], [address], 8 12:26:02 CBC w/ auto diff 2017 018 [facility], [address] [facility], [address], [place], [address], 8 12:26:04 microalbum in, urine 2018 019 [email or web address] 6 In-Office Order, Internal Use Only DO Not Attach Compendium DO Not Attach Compendium, Do Not Delete/merge, [id number] 9 20:04:49 culture, wound 2018 019 [facility], [address] [facility], [address], [place], [address], 9 11:12:46 HbA1c (hemoglobi n A1c), blood 2019 020 [email or web address] 6 In-Office Order, Internal Use Only DO Not Attach Compendium DO Not Attach Compendium, Do Not Delete/merge, [id number] 0 16:56:42 culture, wound 2019 020 [facility], [address] [facility], [address], [place], [address], 0 13:08:17 Referral electromyo gram/nerve conduction referral 2017 018 [email or web address] Not available 8 12:34:[address] referral - Please call patient to schedule appt. Thank you 2018 019 yamil Fodr , [address] [facility] [address], [place], [address], 9 15:30:04 Procedures None recorded. Surgeries None recorded. Imaging None recorded. Medication Orders Basaglar KwikPen U-100 Insulin 100 unit/mL (3 mL) subcutaneo us 2017 018 INTERFACE Not available 8 12:23:17 Humalog U-100 Insulin 100 unit/mL [facility] us solution 2017 018 [email or web address] Not available 9 16:21:37 lisinopril 40 mg tablet 2017 018 [email or web address] Not available 9 12:43:24 montelukas t 10 mg tablet 2018 019 INTERFACE Not available 9 12:52:04 nicotine 14 mg/24 hr daily transderma l patch 2018 019 [email or web address] Not available 0 14:57:17 Basaglar KwikPen U-100 Insulin 100 unit/mL (3 mL) [facility] 2018 019 INTERFACE Not available 9 12:46:06 Novolog FlexPen U-100 Insulin aspart 100 unit/mL (3 mL) [facility] 2018 019 INTERFACE Not available 9 12:48:03 sodium polystyren e sulfonate 15 gram/60 mL oral suspension 2018 019 [email or web address] Not available 0 14:57:41 citalopram 40 mg tablet 2018 019 INTERFACE Not available 9 12:50:04 Basaglar KwikPen U-100 Insulin 100 unit/mL (3 mL) [facility] 2018 019 INTERFACE Not available 9 16:48:20 Novolog FlexPen U-100 Insulin aspart 100 unit/mL (3 mL) [facility] 2018 019 INTERFACE Not available 9 16:48:19 ciprofloxa roxy 500 mg tablet 2018 019 [email or web address] Not available 0 14:57:01 montelukas t 10 mg tablet 2019 020 INTERFACE [facility] #[id number], [address] [facility], [place], [address], 0 16:56:07 Basaglar KwikPen U-100 Insulin 100 unit/mL (3 mL) [facility] 2019 020 INTERFACE [facility][id number], [address], [place], [address], 0 16:57:20 Novolog FlexPen U-100 Insulin aspart 100 unit/mL (3 mL) [facility] 2019 020 INTERFACE [id number], [address], [place], [address], 0 16:57:46 sulfametho xazole 800 mg-trimeth oprim 160 mg tablet 2019 020 [email or web address] [id number], [address], [place], [address], 0 14:57:51 citalopram 40 mg tablet 2019 020 INTERFACE [id number], [address], [place], [address], 0 16:55:32 montelukas t 10 mg tablet 2019 020 INTERFACE [id number], [address], [place], [address], 0 15:15:12 loratadine 10 mg tablet 2019 020 INTERFACE [id number], [address], [place], [address], 0 15:15:12 Novolog FlexPen U-100 Insulin aspart 100 unit/mL (3 mL) [facility] 2019 020 INTERFACE [id number], [address], [place], [address], 0 15:15:11 citalopram 40 mg tablet 2019 020 INTERFACE [id number], [address], [place], [address], 0 15:15:11 Patient TargetsNo targets recorded. Patient Instructions Encounter Date Encounter Id Patient Instructions Last Modified By Organization Details Last Modified Time 09/21/2018 [id number] reviewed her hig h potassium , get in to see can cutter ... she agreed ... [email or web address] Not available 09/21/2018 20:47:25 12/01/2018 [id number] get dilated eye exam .... Not available 12/03/2018 16:53:01 [id number] diet , eating 3 times per day , balancing protein with each meal .... [email or web address] Not available 12/03/2018 16:53:57 05/09/2019 [id number] elevate feet above heart 20 min daily with a heating pad on them. If not resolving , go to ED or urget care Get dilated eye exam [email or web address] Not available 05/14/2019 17:07:55 reviewed diabeti c diet , spacing food 5 hours apart .... [email or web address] Not available 05/14/2019 17:07:01 Reason for Referral Electromyogram/nerve Conduct ion Referral for Pain of right wrist numbness 4th and 5th fingers right hand Referring Physician: [facility], Encounter Date: 02/22/2018 Environmental Health Safety Engineer Referral for Hy perkalemia Please call patient to schedule appt. Thank you Referring Physician: [facility], Encounter Date: 09/21/2018 Results Created Date Observation Date Name Description Value Unit Range Abnormal Flag Note LastModifiedBy Organization Detail LastModifiedTime 09/22/1909/21/2018 micro album in, urine Microalbumin ABNORM AL Not Available In-Office Order Internal Use Only DO Not Attach Compendium DO Not Attach Compendium, Do Not Delete/merge, [id number] 09/21/2018 14:04:08 09/02/19 19 09/02/2018 CBC w/ auto diff WBC 9.5 x10e3 /uL 3.4-10 .8 Not Available [facility] ([facility]) [address] [facility], [place], [address], 09/02/2018 07:13:27 09/02/1909/02/2018 CBC w/ auto diff RBC 4.40 x10e6 /uL 3.77-5 .28 Not Available [facility] ([facility]) [address] [facility], [place], [address], 09/02/2018 07:13:27 09/02/1909/02/2018 CBC w/ auto diff hemoglobin 12.9 g/dL 11.1-1 5.9 Not Available [facility] ([facility]) [address] [facility], [place], [address], 09/02/2018 07:13:27 09/02/1909/02/2018 CBC w/ auto diff hematocrit 39.9 % 34.0-4 6.6 Not Available [facility] ([facility]) [address] [facility], [place], [address], 09/02/2018 07:13:27 09/02/1909/02/2018 CBC w/ auto diff MCV 91 fL 79-97 Not Available [facility] ([facility]) [address] [facility], [place], [address], 09/02/2018 07:13:27 09/02/1909/02/2018 CBC w/ auto diff MCH 29.3 pg 26.6-3 3.0 Not Available [facility] ([facility]) [address] [facility], [place], [address], 09/02/2018 07:13:27 09/02/1909/02/2018 CBC w/ auto diff MCHC 32.3 g/dL 31.5-3 5.7 Not Available [facility] ([facility]) [address] [facility] [place], [address], 09/02/2018 07:13:27 09/02/192019 CBC w/ auto diff RDW 13.9 % 12.3-1 5.4 Not Available [facility] ([facility]) [address] [facility], [place], [address], 09/02/2018 07:13:27 09/02/19 19 09/02/2018 CBC w/ auto diff platelets 288 x10e3 /uL 150-45 0 Not Available [facility] ([facility]) [address] [facility], [place], [address], 09/02/2018 07:13:27 09/02/1909/02/2018 CBC w/ auto diff neutrophils 68 % not estab. Not Available [facility] ([facility]) [address] [facility], [place], [address], 09/02/2018 07:13:27 09/02/1909/02/2018 CBC w/ auto diff lymphs 23 % not estab. Not Available [facility] ([facility]) [address] [facility], [place], [address], 09/02/2018 07:13:27 09/02/1909/02/2018 CBC w/ auto diff monocytes 6 % not estab. Not Available [facility] ([facility]) [address] [facility], [place], [address], 09/02/2018 07:13:27 09/02/1909/02/2018 CBC w/ auto diff eos 2 % not estab. Not Available [facility] ([facility]) [address] [facility], [place], [address], 09/02/2018 07:13:27 09/02/1909/02/2018 CBC w/ auto diff basos 1 % not estab. Not Available [facility] ([facility]) [address] [facility], [place], [address], 09/02/2018 07:13:27 09/02/1909/02/2018 CBC w/ auto diff immature cells RESEARCH PSYCHOLOGIST Not Available [facility] ([facility]) [address] [place], [address], 09/02/2018 07:13:27 09/02/1909/02/2018 CBC w/ auto diff neutrophils (absolute) 6.5 x10e3 /uL 1.4-7. 0 Not Available [facility] ([facility]) [address] [place], [address], 09/02/2018 07:13:27 09/02/1909/02/2018 CBC w/ auto diff lymphs (absolute) 2.2 x10e3 /uL 0.7-3. 1 Not Available [facility] ([facility]) [address] [place], [address], 09/02/2018 07:13:27 09/02/1909/02/2018 CBC w/ auto diff monocytes(ab solute) 0.6 x10e3 /uL 0.1-0. 9 Not Available [facility] ([facility]) [address] [place], [address], 09/02/2018 07:13:27 09/02/1909/02/2018 CBC w/ auto diff eos (absolute) 0.2 x10e3 /uL 0.0-0. 4 Not Available [facility] ([facility]) [address] [place], [address], 09/02/2018 07:13:27 09/02/1909/02/2018 CBC w/ auto diff baso (absolute) 0.1 x10e3 /uL 0.0-0. 2 Not Available [facility] ([facility]) [address] [place], [address], 09/02/2018 07:13:27 09/02/1909/02/2018 CBC w/ auto diff immature granulocytes 0 % not estab. Not Available [facility] ([facility]) [address] [place], [address], 09/02/2018 07:13:27 09/02/1909/02/2018 CBC w/ auto diff immature grans (abs) 0.0 x10e3 /uL 0.0-0. 1 Not Available [facility] ([facility]) [address] [facility] [place], [address], 09/02/2018 07:13:27 09/02/1909/02/2018 CBC w/ auto diff NRBC RESEARCH PSYCHOLOGIST Not Available [facility] ([facility]) [address] [facility] [place], [address], 09/02/2018 07:13:27 09/02/1909/02/2018 CBC w/ auto diff hematology comments: RESEARCH PSYCHOLOGIST Not Available [facility] ([facility]) [address] [place], [address], 09/02/2018 07:13:27 09/02/1909/02/2018 CMP, serum or plasm a glucose 107 mg/dL 65-99 above high normal Not Available [facility] ([facility]) [address] [facility] [place], [address], 09/02/2018 07:13:28 09/02/1909/02/2018 CMP, serum or plasm a BUN 18 mg/dL 8-27 Not Available [facility] ([facility]) [address] [place], [address], 09/02/2018 07:13:28 09/02/1909/02/2018 CMP, serum or plasm a creatinine 0.70 mg/dL 0.57-1 .00 Not Available [facility] ([facility]) [address] [place], [address], 09/02/2018 07:13:28 09/02/1909/02/2018 CMP, serum or plasm a eGFR if nonafricn AM 91 mL/mi n/1.7 3 >59 Not Available [facility] ([facility]) [address] [place], [address], 09/02/2018 07:13:28 09/02/1909/02/2018 CMP, serum or plasm a eGFR if africn AM 104 mL/mi n/1.7 3 >59 Not Available [facility] ([facility]) [address] [facility] [place], [address], 09/02/2018 07:13:28 09/02/1909/02/2018 CMP, serum or plasm a BUN/creatini ne ratio 26 12-28 Not Available [facility] ([facility]) [address] [facility] [place], [address], 09/02/2018 07:13:28 09/02/1909/02/2018 CMP, serum or plasm a sodium 142 mmol/ L 134-14 4 Not Available [facility] ([facility]) [address] [place], [address], 09/02/2018 07:13:28 09/02/1909/02/2018 CMP, serum or plasm a potassium 5.4 mmol/ L 3.5-5. 2 above high normal Not Available [facility] ([facility]) [address] [place], [address], 09/02/2018 07:13:28 09/02/1909/02/2018 CMP, serum or plasm a chloride 103 mmol/ L 96-106 Not Available [facility] ([facility]) [address] [place], [address], 09/02/2018 07:13:28 09/02/1909/02/2018 CMP, serum or plasm a carbon dioxide, total 24 mmol/ L 20-29 Not Available [facility] ([facility]) [address] [place], [address], 09/02/2018 07:13:28 09/02/1909/02/2018 CMP, serum or plasm a calcium 9.7 mg/dL 8.7-10 .3 Not Available [facility] ([facility]) [address] [facility] [place], [address], 09/02/2018 07:13:28 09/02/1909/02/2018 CMP, serum or plasm a protein, total 7.5 g/dL 6.0-8. 5 Not Available [facility] ([facility]) [address] [facility] [place], [address], 09/02/2018 07:13:28 09/02/1909/02/2018 CMP, serum or plasm a albumin 4.0 g/dL 3.6-4. 8 Not Available [facility] ([facility]) [address] [facility] [place], [address], 09/02/2018 07:13:28 09/02/1909/02/2018 CMP, serum or plasm a globulin, total 3.5 g/dL 1.5-4. 5 Not Available [facility] ([facility]) [address] [facility] [place], [address], 09/02/2018 07:13:28 09/02/1909/02/2018 CMP, serum or plasm a A/G ratio 1.1 1.2-2. 2 below low normal Not Available [facility] ([facility]) [address] [facility] [place], [address], 09/02/2018 07:13:28 09/02/1909/02/2018 CMP, serum or plasm a bilirubin, total 0.2 mg/dL 0.0-1. 2 Not Available [facility] ([facility]) [address] [facility] [place], [address], 09/02/2018 07:13:28 09/02/1909/02/2018 CMP, serum or plasm a alkaline phosphatase 90 IU/L 39-117 Not Available [facility] ([facility]) [address] [facility] [place], [address], 09/02/2018 07:13:28 09/02/1909/02/2018 CMP, serum or plasm a AST (SGOT) 14 IU/L 0-40 Not Available [facility] ([facility]) [address] [place], [address], 09/02/2018 07:13:28 09/02/1909/02/2018 CMP, serum or plasm a ALT (SGPT) 12 IU/L 0-32 Not Available [facility] ([facility]) [address] [place], [address], 09/02/2018 07:13:28 09/02/1909/02/2018 lipid panel , serum cholesterol, total 226 mg/dL 100-19 9 above high normal Not Available [facility] ([facility]) [address] [facility] [place], [address], 09/02/2018 07:13:28 09/02/1909/02/2018 lipid panel , serum triglyceride s 113 mg/dL 0-149 Not Available [facility] ([facility]) [address] [facility] [place], [address], 09/02/2018 07:13:28 09/02/1909/02/2018 lipid panel , serum HDL cholesterol 44 mg/dL >39 Not Available [facility] ([facility]) [address] [facility] [place], [address], 09/02/2018 07:13:28 09/02/1909/02/2018 lipid panel , serum VLDL cholesterol divya 23 mg/dL 5-40 Not Available [facility] ([facility]) [address] [facility] [place], [address], 09/02/2018 07:13:28 09/02/1909/02/2018 lipid panel , serum LDL cholesterol calc 159 mg/dL 0-99 above high normal Not Available [facility] ([facility]) [address] [facility] [place], [address], 09/02/2018 07:13:28 09/02/1909/02/2018 lipid panel , serum comment: RESEARCH PSYCHOLOGIST Not Available [facility] ([facility]) [address] [place], [address], 09/02/2018 07:13:28 09/02/1909/02/2018 lipid panel , serum LDL/HDL ratio 3.6 ratio 0.0-3. 2 above high normal LDL/H DL Ratio Men Women 1/2 Avg.R isk 1.0 1.5 Avg.R isk 3.6 3.2 2X Avg.R isk 6.2 5.0 3X Avg.R isk 8.0 6.1 Not Available [facility] ([facility]) [address] [place], [address], 09/02/2018 07:13:28 09/02/1909/02/2018 HbA1c (hemo globi n A1c), blood hemoglobin A1C 7.5 % 4.8-5. 6 above high normal Predi abete s: 5.7 - 6.4 Diabe chato: >6.4 Glyce miles contr ol for adult s with diabe chato: <7.0 Not Available [facility] ([facility]) [address] [place], [address], 09/02/2018 07:13:29 09/02/1909/02/2018 TSH, ultra -sens itive , serum TSH 1.540 uIU/m L 0.450- 4.500 Not Available [facility] ([facility]) [address] [place], [address], 09/02/2018 07:13:29 09/02/1909/02/2018 CK (crea brie kinas e), total , serum creatine kinase,total 64 U/L 24-173 Not Available [facility] ([facility]) [address] [place], [address], 09/02/2018 07:13:30 09/02/1909/02/2018 diabe chato patie nt educa tion pdf image . Not Available [facility] ([facility]) [address] [facility] [place], [address], 09/02/2018 07:13:30 09/10/1909/10/2018 CMP, serum or plasm a glucose 136 mg/dL 65-99 above high normal Not Available [facility] ([facility]) [address] [facility] [place], [address], 09/10/2018 06:34:15 09/10/1909/10/2018 CMP, serum or plasm a BUN 24 mg/dL 8-27 Not Available [facility] ([facility]) [address] [facility] [place], [address], 09/10/2018 06:34:15 09/10/1909/10/2018 CMP, serum or plasm a creatinine 0.89 mg/dL 0.57-1 .00 Not Available [facility] ([facility]) [address] [facility] [place], [address], 09/10/2018 06:34:15 09/10/1909/10/2018 CMP, serum or plasm a eGFR if nonafricn AM 68 mL/mi n/1.7 3 >59 Not Available [facility] ([facility]) [address] [facility] [place], [address], 09/10/2018 06:34:15 09/10/1909/10/2018 CMP, serum or plasm a eGFR if africn AM 78 mL/mi n/1.7 3 >59 Not Available [facility] ([facility]) [address] [facility] [place], [address], 09/10/2018 06:34:15 09/10/1909/10/2018 CMP, serum or plasm a BUN/creatini ne ratio 27 12-28 Not Available [facility] ([facility]) [address] [facility] [place], [address], 09/10/2018 06:34:15 09/10/1909/10/2018 CMP, serum or plasm a sodium 139 mmol/ L 134-14 4 Not Available [facility] ([facility]) [address] [facility] [place], [address], 09/10/2018 06:34:15 09/10/1909/10/2018 CMP, serum or plasm a potassium 5.9 mmol/ L 3.5-5. 2 above high normal Not Available [facility] ([facility]) [address] [facility] [place], [address], 09/10/2018 06:34:15 09/10/1909/10/2018 CMP, serum or plasm a chloride 104 mmol/ L 96-106 Not Available [facility] ([facility]) [address] [place], [address], 09/10/2018 06:34:15 09/10/1909/10/2018 CMP, serum or plasm a carbon dioxide, total 21 mmol/ L 20-29 Not Available [facility] ([facility]) [address] [place], [address], 09/10/2018 06:34:15 09/10/1909/10/2018 CMP, serum or plasm a calcium 9.4 mg/dL 8.7-10 .3 Not Available [facility] ([facility]) [address] [place], [address], 09/10/2018 06:34:15 09/10/1909/10/2018 CMP, serum or plasm a protein, total 7.5 g/dL 6.0-8. 5 Not Available [facility] ([facility]) [address] [place], [address], 09/10/2018 06:34:15 09/10/1909/10/2018 CMP, serum or plasm a albumin 4.1 g/dL 3.6-4. 8 Not Available [facility] ([facility]) [address] [place], [address], 09/10/2018 06:34:15 09/10/1909/10/2018 CMP, serum or plasm a globulin, total 3.4 g/dL 1.5-4. 5 Not Available [facility] ([facility]) [address] [facility] [place], [address], 09/10/2018 06:34:15 09/10/1909/10/2018 CMP, serum or plasm a A/G ratio 1.2 1.2-2. 2 Not Available [facility] ([facility] [address] [facility] [place], [address], 09/10/2018 06:34:15 09/10/1909/10/2018 CMP, serum or plasm a bilirubin, total 0.2 mg/dL 0.0-1. 2 Not Available [facility] ([facility]) [address] [facility] [place], [address], 09/10/2018 06:34:15 09/10/1909/10/2018 CMP, serum or plasm a alkaline phosphatase 94 IU/L 39-117 Not Available [facility] ([facility] [address] [facility] [place], [address], 09/10/2018 06:34:15 09/10/1909/10/2018 CMP, serum or plasm a AST (SGOT) 15 IU/L 0-40 Not Available [facility] ([facility]) [address] [facility] [place], [address], 09/10/2018 06:34:15 09/10/1909/10/2018 CMP, serum or plasm a ALT (SGPT) 13 IU/L 0-32 Not Available [facility] ([facility]) [address] [facility] [place], [address], 09/10/2018 06:34:15 12/02/1912/06/2018 cultu re, wound aerobic culture Final report abnormal Not Available [facility] ([facility]) [address] [place], [address], 12/08/2018 11:12:46 12/02/19 19 12/06/2018 cultu re, wound result 1 Commen t abnormal Methi cilli n - resis tant Staph yloco ccus aureu s Light growt h Based on resis tance to oxaci llin this isola te would be resis tant to all curre ntly avail able beta- lacta m antim icrob ial agent s, with the excep tion of the newer cepha lospo rins with anti- MRSA activ ity, such as Cefta rolin e Not Available [facility] ([facility]) [address] [facility], [place], [address], 12/08/2018 11:12:46 12/02/1912/06/2018 cultu re, wound result 2 Mixed skin landen Light growt h Not Available [facility] ([facility]) [address] [place], [address], 12/08/2018 11:12:46 12/02/1912/06/2018 cultu re, wound antimicrobia l susceptibili ty Commen t S = Susce ptibl e; I = Inter media te; R = Resis tant P = Posit bernardo; N = Negat bernardo MICS are expre ssed in micro grams per mL Antib iotic RSLT# 1 RSLT# 2 RSLT# 3 RSLT# 4 Cipro floxa roxy I Clind amyci n S Eryth romyc in S Genta micin S Levof loxac in S Linez olid S Oxaci llin R Penic illin R Rifam pin S Tetra cycli ne S Trime thopr im/Kruger lfa S Vanco mycin S Not Available [facility] ([facility]) [address] [place], [address], 12/08/2018 11:12:46 12/02/1912/08/2018 cultu re, wound anaerobic culture Final report Not Available [facility] ([facility]) [address] [facility] [place], [address], 12/08/2018 11:12:46 12/02/19 19 12/08/2018 cultu re, wound result 1 Commen t No anaer obes recov ered. Not Available [facility] Lab) [address] [facility], [place], [address], 12/08/2018 11:12:46 05/09/19 20 05/09/2019 HbA1c (hemo globi n A1c), blood HbA1c 8.7 Not Available In-Office Order Internal Use Only DO Not Attach Compendium DO Not Attach Compendium, Do Not Delete/merge, [id number] 05/09/2019 16:56:28 05/10/19 20 05/12/2019 cultu re, wound aerobic culture Final report Not Available [facility] ([facility]) [address] [facility], [place], [address], 05/15/2019 13:08:17 05/10/19 20 05/12/2019 cultu re, wound result 1 Mixed skin landen Not Available [facility] ([facility]) [address] [facility], [place], [address], 05/15/2019 13:08:17 05/10/19 20 05/15/2019 cultu re, wound anaerobic culture Final report Not Available [facility] ([facility]) [address] [facility], [place], [address], 05/15/2019 13:08:17 05/10/19 20 05/15/2019 cultu re, wound result 1 Commen t No anaer obic growt h in 72 hours . Not Available [facility] ([facility]) [address] [facility], [place], [address], 05/15/2019 13:08:17 05/10/19 20 05/10/2019 [email or web address] e note please note Commen t The date and/o r time of colle ction was not indic ated on the requi sitio n as requi red by state and ralph al law. The date of recei pt of the speci men was used as the colle ction date if not suppl ied. Not Available [facility] ([facility]) [address] [facility], [place], [address], 05/15/2019 13:08:17 05/09/19 21 05/02/2020 XR, chest No observ ation record ed. [email or web address] Not Available 06/2020 19:03:02 05/09/19 21 05/03/2020 XR, chest No observ ation record ed. [email or web address] Not Available 06/2020 19:03:03 05/09/19 21 05/04/2020 XR, chest No observ ation record ed. Not Available 06/2020 19:03:03 05/09/19 21 05/03/2020 US, magdy x, venou s, lower extre mity No observ ation record ed. Not Available 06/2020 19:03:03 05/09/19 21 05/03/2020 CT, angio gram, chest , w/ contr ast No observ ation record ed. [email or web address] Not Available 06/2020 19:03:03 05/09/19 21 05/03/2020 US, doppl er echoc ardio gram No observ ation record ed. [email or web address] Not Available 06/2020 19:03:04 Result Notes None recorded. Problems Name Problem SNOMED Code Status Onset Date Resolution Date Notes Provider Name and Address Organization Details Recorded Time Insomnia 469875390 Active 2017 Edoleg Perez PA-C Attn: Isiah g,[address] [facility] [address] [address], [place], [address], [place] [facility] 8 16:49:06 Pain of right wrist 1573904683284 00 Active 2017 Edoleg Perez PA-C Attn: Isiah g,[address] [facility], [place], [address], [place] [facility] 8 12:29:16 Hyperkalemi a 31747884 Active 2018 Gerald Perez PA-C Attn: Accountin g,[address] [facility], [place], [place], [address] [place] [address] 2, [place] [facility] 9 14:52:44 Cellulitis of lower limb 864101225 Active Gerald Perez PA-C Attn: Accountin g,[address] [facility], [place], [address] [place] [address] 2, [place] [facility] 6 19:38:50 Type 2 diabetes mellitus 14867529 Active Gerald Perez PA-C Attn: Accountin g,[address] [facility], [place], [address] [place] [address] 2, [place] [facility] 6 19:38:50 Essential hypertensio n 50082390 Active Gerald Perez PA-C Attn: Accountin g,[address] [facility], [place], [address] [place] [address] 2, [place] [facility] 6 16:17:14 Obesity 053136112 Active Gerald Perez PA-C Attn: Accountin g,[address] [facility], [place], [address] [place] [address] 2, [place] [facility] 6 19:38:50 Hyperlipide adrienne 28771500 Active Gerald Perez PA-C Attn: Accountin g,[address] [facility], [place], [address] [place] [address] 2, [place] [facility] 6 19:38:50 Tobacco user 971522468 Active Gerald Perez PA-C Attn: Accountin g,[address] [facility], [place], [address] [place] [address] 2, [place] [facility] 6 19:38:50 Sinusitis 84162724 Active Gerald Perez PA-C Attn: Accountin g,[address] [facility], [place], [address] [place] [address] 2, [place] - [facility] 5 10:59:02 Allergic rhinitis 64637435 Active Gerald Perez PA-C Attn: Isiah burns,[address], [place], [address], [place] [facility] 6 16:17:14 Depressive disorder 20994662 Active 2016 Gerald Perez PA-C Attn: Isiah burns,[address], [place], [address], [place] [facility] 7 16:46:08 Problem Notes None recorded. Procedures Surgical History Date Name Laterality Status Provider Name and Address Organization Details Recorded Time 03/29/18 96 Cholecystectomy completed Ria Shaw MA [facility] 08/24/2014 11:43:55 03/29/18 83 Tubal Ligation completed Ria Shaw MA [facility] 08/24/2014 11:43:55 Imaging Results Imaging Date Name Status LastModified by Organization Details LastModified Time 05/02/2020 XR, chest completed Information n ot available 05/30/2020 19:03:02 05/03/2020 XR, chest completed [email or web address] Information n ot available 05/30/2020 19:03:03 05/04/2020 XR, chest completed [email or web address] Information n ot available 05/30/2020 19:03:03 05/03/2020 US, duplex, venous, lower extremity completed [email or web address] Information not available 05/30/2020 19:03:03 05/03/2020 CT, angiogram, chest, w/ contrast completed [email or web address] Information not available 05/30/2020 19:03:03 05/03/2020 US, doppler echocardiogram completed [email or web address] Information not available 05/30/2020 19:03:04 Procedure Notes None recorded. Medical Equipment None Reported. Allergies No known drug allergies Medications Name Sig Start Date Stop Date Status Note LastModified by Organization Details LastModified Time Prescript ion - Renewal 06/03 completed Not Available Not Available Not Available Prescript ion - New 06/03 completed Not Available Not Available Not Available insulin syrg mis 0.5/31g 12/01 completed Not Available Not Available Not Available Humalog Mix 75-25 (U-100) Insulin 100 unit/mL subcutane ous suspensio n INJECT 25 UNIT(S) EVERY DAY BY SUBCUTAN EOUS ROUTE IN THE MORNING AND 15 UNITS IN THE EVENING FOR 30 DAYS. 09/21 completed Not Available Not Available Not Available atorvasta tin 40 mg tablet Take 1 tablet every day by oral route for 30 days. 07/09 completed Not Available Not Available Not Available silver sulfadiaz ine 1 % topical cream APPLY A 1/16 INCH (1.5 MM) THICK LAYER TO ENTIRE BURN AREA BY TOPICALR OUTE 2 TIMES PER DAY 07/09 completed Not Available Not Available Not Available nicotine 14 mg/24 hr daily transderm al patch Apply 1 patch every day by transder mal route for 30 days. 07/09 completed Not Available Not Available Not Available citalopra m 40 mg tablet TAKE 1 TABLET BY MOUTH EVERYDAY AT BEDTIME active Not Available Not Available No t Available trazodone 50 mg tablet Take 1 tablet as needed by oral route at bedtime for 30 days. 07/09 completed Not Available Not Available Not Available ibuprofen 800 mg tablet TAKE 1 TABLET(S ) 3 TIMES A DAY BY MOUTH NEEDED 07/09 completed Not Available Not Available Not Available clindamyc in HCl 150 mg capsule Take 1 capsule every 6 hours by oral route for 10 days. 06/03 completed Not Available Not Available Not Available ciproflox acin 500 mg tablet Take 1 tablet every 12 hours by oral route for 10 days. 07/09 completed Not Available Not Available Not Available sulfameth oxazole 800 mg-trimet hoprim 160 mg tablet TAKE 1 TABLET BY MOUTH EVERY 12 HOURS FOR 10 DAYS active Not Available Not Available No t Available SPS (with sorbitol) 15 gram-20 gram/60 mL oral suspensio n 07/09 completed Not Available Not Available Not Available sodium polystyre ne sulfonate 15 gram/60 mL oral suspensio n Take 60 mL every day by oral route for 30 days. 07/09 completed Not Available Not Available Not Available citalopra m 20 mg tablet TAKE 1 TABLET(S ) EVERY DAY BY MOUTH TAKE 3 HOURS BEFORE AT BEDTIME 09/21 completed increase d to 40 mg Not Available Not Available Not Available Humalog U-100 Insulin 100 unit/mL subcutane ous solution INJECT 5 UNITS 3 TIMES A DAY NEEDED BY SUBCUTAN EOUS ROUTE BEFORE MEALS 12/01 completed Not Available Not Available Not Available amlodipin e 10 mg tablet Take 1 tablet every day by oral route in the morning for 30 days. 07/09 completed Not Available Not Available Not Available cephalexi n 500 mg capsule Take 1 capsule 3 times a day by oral route for 10 days. 09/21 completed Not Available Not Available Not Available nystatin 100,000 unit/gram topical cream 07/09 completed Not Available Not Available Not Available monteluka st 10 mg tablet TAKE 1 TABLET BY MOUTH ONCE DAILY FOR BREATHIN G. BEST TAKEN AT BEDTIME. 2019 active Not Available Not Available Not Avai lable alcohol swabs TEST TWO TIMES DAILY 07/09 completed Not Available Not Available Not Available lisinopri l 40 mg tablet TAKE 1 TABLET(S ) EVERY DAY BY MOUTH IN THE MORNING FOR BLOOD PRESSURE 09/21 completed potassiu m was elevated Not Available Not Available Not Available loratadin e 10 mg tablet Take 1 tablet every day by oral route in the morning for 30 days. 2019 active Not Available Not Available Not Avai lable amoxicill in 875 mg-potass ium clavulana te 125 mg tablet Take 1 tablet twice a day by oral route for 10 days. 02/22 completed Not Available Not Available Not Available diabetic supplies, miscellan . 07/09 completed Not Available Not Available Not Available Novolog FlexPen U-100 Insulin aspart 100 unit/mL (3 mL) subcutane ous Use as directed 10 units 3 times daily before food active Not Available Not Available No t Available Novolog Mix 70-30Flex Pen U-100 Inject 30 Units under the skin every morning & 20 units every evening as directed 12/[address] Sigifredo Carballo Not Available Not Available Not Available Humalog Mix 75-25 KwikPen U-100 insulin 100 unit/mL subcutane ous pen Inject 30 units every day by subcutan eous route in the morning for 30 days. 06/03 completed Not Available Not Available Not Available Humalog KwikPen (U-100) Insulin 100 unit/mL subcutane ous Inject 5 units 3 times a day by subcutan eous route before meals for 30 days. 09/21 completed Not Available Not Available Not Available Trueresul t Blood Glucose System kit 07/09 completed Not Available Not Available Not Available OneTouch Verio test strips TEST TWO TIMES DAILY active Not Available Not Available No t Available Comfort EZ Insulin Syringe 0.5 mL 31 gauge x 5/16 09/21 completed Not Available Not Available Not Available TRUEplus Insulin 0.3 mL 31 gauge x 5/16 syringe 07/09 completed Not Available Not Available Not Available OneTouch Delica Lancets 30 gauge 07/09 completed Not Available Not Available Not Available Safety Seal Lancets 28 gauge TEST TWO TIMES DAILY 06/03 completed Not Available Not Available Not Available OneTouch Verio Meter 07/09 completed Not Available Not Available Not Available Varun MontañoikPen U-100 Insulin 100 unit/mL (3 mL) subcutane ous Inject 36 units every day by subcutan eous route at bedtime for 30 days. active Not Available Not Available No t Available TRUEplus Pen Needle 31 gauge x 1/4 USE DIRECTED active Not Available Not Available No t Available Vitals Date Recorded Body height Body mass index (BMI) Body weight Oxygen saturation Oxygen saturation in Arterial blood by Pulse oximetry Heart rate Body temperature Systolic blood pressure Diastolic blood pressure Provider Name and Address Organization Details Last Updated DateTime 8 157.48 cm 48.6 kg/m2 685339. 85 g 99 % 99 % 60 /min 97.7 [degF] 130 mm[Hg] 68 mm[Hg] Patricia Rai MA [facility] 8 12:06:17 Date Recorded Body height Body mass index (BMI) Body weight Body temperature Oxygen saturation Oxygen saturation in Arterial blood by Pulse oximetry Heart rate Systolic blood pressure Diastolic blood pressure Provider Name and Address Organization Details Last Updated DateTime 9 157.48 cm 50.4 kg/m2 747042. 34 g 97.8 [degF] 97 % 97 % 65 /min 126 mm[Hg] 68 mm[Hg] Vaishnavi Matthews [place] - [facility] 9 11:54:32 Date Recorded Body height Body mass index (BMI) Body weight Oxygen saturation Oxygen saturation in Arterial blood by Pulse oximetry Heart rate Body temperature Systolic blood pressure Diastolic blood pressure Provider Name and Address Organization Details Last Updated DateTime 9 157.48 cm 52.1 kg/m2 112437. 11 g 98 % 98 % 80 /min 98.3 [degF] 132 mm[Hg] 82 mm[Hg] Patricia aRi MA [facility] 9 16:27:26 Date Recorded Body height Body mass index (BMI) Body weight Oxygen saturation Oxygen saturation in Arterial blood by Pulse oximetry Heart rate Body temperature Systolic blood pressure Diastolic blood pressure Provider Name and Address Organization Details Last Updated DateTime 0 157.48 cm 52 kg/m2 667533. 67 g 97 % 97 % 74 /min 98.2 [degF] 142 mm[Hg] 74 mm[Hg] Vaishnavi Matthews MA [facility] 0 16:29:28 Date Recorded Body height Provider Name an d Address Organization Details Last Updated DateTime 07/10/2019 157.48 cm Manuela Pedraza MA [facility] 2019 15:10:24 Social History Question Answer Notes LastModified by Organizat ion Details LastModified Time Tobacco Smoking Status Current Some Day Smoker Patricia Rai MA null, [facility] 12/01/2018 16:23:24 Do You Have An Advance Directive? No Information not available 08/24/2014 What Is Your Level Of Alcohol Consumption? Occasional Information not available 08/24/2014 Are You Blind Or Do You Have Difficulty Seeing? No Information not available 08/24/2014 What Is Your Level Of Caffeine Consumption? Heavy Information not available 08/24/2014 How Much Tobacco Do You Chew? None Information not available 08/24/2014 Are You Deaf Or Do You Have Serious Difficulty Hearing? No Information not available 08/24/2014 What Type Of Diet Are You Following? REGULAR Information not available 08/24/2014 Which Illicit Or Recreational Drugs Have You Used? No Information not available 08/24/2014 Education 2 Year College Informatio n not available 08/24/2014 What Is Your Occupation? Un-employed Information not available 08/24/2014 Are There Any Guns Present In Your Home? No Information not available 08/24/2014 Hard Of Hearing Or Deaf In One Or Both Ears? No Information not available 08/24/2014 Legally Blind In One Or Both Eyes? No Information no t available 08/24/2014 Marital Status Informatio n not available 08/24/2014 What Was The Date Of Your Most Recent Tobacco Screening? 05/09/2019 [email or web address] Information not available 05/09/2019 Performs Monthly Self-breast Exam? Yes Information no t available 08/24/2014 Seat Belts Used Routinely Yes Information not available 08/24/2014 Smoke Alarm In Home Yes Information not available 08/24/2014 At What Age Did You Start Smoking Tobacco? 20 Information not available 08/24/2014 General Stress Level High Information not available 08/24/2014 Do You Use Sunscreen Routinely? No Information not available 08/24/2014 Sex: Unknown Functional Status Question Answer Note LastModified by Organization D etails LastModified Time Do you have difficulty walking or climbing stairs? Yes Information not available 08/24/2014 Do you have difficulty doing errands alone? No Information not available 08/24/2014 Do you have difficulty dressing or bathing? No Information not available 08/24/2014 What is your exercise level? None Information not available 08/24/2014 Mental Status Question Answer Note LastModified by Organization D etails LastModified Time Do you have difficulty concentrating, remembering or making decisions? No Information no t available 08/24/2014 Family History Relationship Description Onset Age of this Age Resolved Age Notes LastModified by Organization Details LastModified Time Mother Hypercholespema burgos Not available 2014 11:43:56 Mother Malignant neoplasm of skin Not available 2014 11:43:56 Father Heart disease Not available 2014 11:43:56 Maternal Aunt Malignant tumor of breast Not available 2014 11:43:56 Maternal Grandmother Diabetes mellitus Not available 2014 11:43:56 Maternal Uncle Diabetes mellitus Not available 2014 11:43:56 Medical History Condition Response Diabetes Y Skin Problems Y High Blood Pressure Y Depression Y Allergies Y High Cholesterol Y Gynecological HistoryNo gynecological history recorded. Obstetrics History GPAL:G 0 P 0 0 0 0 Immunizations Vaccine Type Date Status Note Provider Nam e and Address Organization Details Recorded Time Influenza, split virus, quadrivalent, preservative 5 completed Not Available [facility] 04/15/2019 02:32:11 Past Encounters Encounter ID Performer Location Encounter Start Date Encounter Closed Date Diagnosis/Indication Diagnosis SNOMED-CT Code Diagnosis ICD10 Code Diagnosis Note [id number] RAD Cooper (Adult Med) [address] [place] [id number] 08/24/2014 11:12:00 08/24/2014 12:24:52 Cellulitis of lower limb 405723540 Type 2 turner betes mellitus 46811771 Essential hypertension 07171684 Obesity 704402211 Hyperlipidemia 02723444 Tobacco user 443013551 h correction a pack per day [id number] Pauline España (Adult Med) [address] [place] [id number] 0 01/10/2015 10:15:03 01/10/2015 11:04:49 Cellulitis of lower limb 212793978 L03.119 Sinusitis 29479473 J32.9 Essential hypertension 09713452 I10 Hyperlipidemia 60652147 E78.5 Obesity 743492602 E66.9 Tobacco user 393106297 Z 72.0 half a pack per day Type 2 turner betes mellitus 67539014 E11.9 [id number] Leti España (Adult Med) [address] [place] [id number] 0 03/11/2015 10:05:47 03/11/2015 13:14:28 Cellulitis of lower limb 668338804 L03.119 Essential hypertension 83439163 I10 Hyperlipidemia 23947094 E78.5 Obesity 104982717 E66.9 Tobacco user 910824746 Z 72.0 half a pack per day Type 2 turner betes mellitus 12412315 E11.9 Administra tion of influenza vaccine 63225453 Z23 [id number] RAD Cooper (Adult Med) [address] [place] [id number] 0 07/30/2015 15:46:17 07/30/2015 16:09:34 Essential hypertension 92252118 I10 Hyperlipidemia 72798537 E78.5 Obesity 747783096 E66.9 Tobacco user 492387663 Z 72.0 half a pack per day Type 2 turner betes mellitus 30499469 E11.9 Allergic rhinitis 450953 04 J30.9 [id number] RAD Cooper (Adult Med) [address] [place] [id number] 0 10/01/2015 14:52:58 10/01/2015 15:40:14 Cellulitis of lower limb 080682553 L03.119 Hyperlipidemia 38377286 E78.5 Obesity 698405532 E66.9 Tobacco user 521512169 Z 72.0 half a pack per day Type 2 turner betes mellitus 35725568 E11.9 [id number] RAD Cooper (Adult Med) [address] [place] [id number] 0 09/22/2016 15:49:20 09/22/2016 16:49:26 Type 2 diabetes mellitus 32373345 E11.9 Hyperlipidemia 87117566 E78.5 Essential hypertension 98476663 I10 Allergic rhinitis 179177 04 J30.9 Obesity 843503577 E66.9 Tobacco user 061291446 Z 72.0 half a pack per day Sinusitis 26900359 J32.9 Depressive disorder 3548 9007 F32.89 [id number] RAD Cooper (Adult Med) [address] [place] [id number] 0 11/19/2016 15:57:58 11/19/2016 17:15:16 Type 2 diabetes mellitus 96450127 E11.9 Hyperlipidemia 22871772 E78.5 Essential hypertension 38696422 I10 Allergic rhinitis 813443 04 J30.9 Obesity 750150799 E66.9 Tobacco user 183763880 Z 72.0 half a pack per day Depressive disorder 3548 9007 F32.89 Cellulitis of lower limb 604919339 L03.763 [id number] RAD Cooper (Adult Med) [address] [place] [id number] 0 06/03/2017 16:04:18 06/03/2017 16:56:37 Cellulitis of lower limb 905878523 L03.119 Type 2 turner betes mellitus 86743589 E11.9 Hyperlipidemia 20840433 E78.5 Essential hypertension 31304577 I10 Depressive disorder 3548 9007 F32.89 Allergic rhinitis 924495 04 J30.9 Insomnia 048432983 G47.0 0 [id number] RAD Cooper (Adult Med) [address] [place] [id number] 0 02/22/2018 10:54:03 02/22/2018 12:34:57 Type 2 diabetes mellitus 10304524 E11.9 Obesity 674370764 E66.9 Tobacco user 311077853 Z 72.0 half a pack per day Hyperlipidemia 28955764 E78.5 Essential hypertension 04127360 I10 Pain of right wrist 3169 878672 49862 M25.531 Depressive disorder 3548 9007 F32.89 Insomnia 840655660 G47.0 0 [id number] RAD Cooper (Adult Med) [address] [place] [id number] 0 09/21/2018 11:20:14 09/21/2018 12:55:31 Hyperkalemia 08127120 E87.5 Type 2 turner betes mellitus 78309204 E11.9 Depressive disorder 3548 9007 F32.89 Essential hypertension 79118904 I10 Hyperlipidemia 53700011 E78.5 Obesity 678317167 E66.9 Tobacco user 235400849 Z 72.0 half a pack per day [id number] RAD Cooper (Adult Med) [address] [place] [id number] 0 12/01/2018 15:43:22 12/01/2018 16:53:58 Cellulitis of lower limb 737912322 L03.119 left inner calf Type 2 turner betes mellitus 71711930 E11.9 Essential hypertension 92429006 I10 Hyperlipidemia 98443348 E78.5 Obesity 263696802 E66.9 Insomnia 447088428 G47.0 0 Tobacco user 360503147 Z 72.0 half a pack per day Allergic rhinitis 906754 04 J30.9 [id number] RAD Cooper (Adult Med) [address] [place] [phone] 0 05/09/2019 16:04:31 05/09/2019 17:24:33 Cellulitis of lower limb 292583708 L03.119 left inner calf Depressive disorder 3548 9007 F32.89 Allergic rhinitis 419917 04 J30.9 Hyperlipidemia 13618711 E78.5 Obesity 301475807 E66.9 Type 2 turner betes mellitus 83092651 E11.9 Insomnia 467244848 G47.0 0 [id number] RAD Cooper (Adult Med) [address] [place] [address] [id number] 0 07/10/2019 09:36:22 07/20/2019 11:46:37 Depressive disorder 69966206 F32.89 Allergic rhinitis 122371 04 J30.9 Type 2 turner betes mellitus 30524990 E11.9 Hyperlipidemia 03558808 E78.5 Essential hypertension 82137610 I10 Health Concerns Section Related Observation LastModified by Organization Detai ls LastModified Time None Recorded Concern Status LastModified by Organization Details LastModified Time None Recorded Advance Directives Directive N: Payers Encounter Date Sequence Insurance Name Policy Number Policy Gudino Covered Member ID Gudino Member ID Guarantor Name 02/22/2018 1 [employer] [place]UAL [place]IG[place] (MEDICARE - MEDICAID REPLACEMENT HMO) [place] [id number] [place] 09/21/2018 1 [employer] [place] - MEDICAID REPLACEMENT HMO) Ann [place] [id number] [place] 12/01/2018 1 [employer] [place] - MEDICAID REPLACEMENT HMO) Ann Hill [id number] Ann [place] 05/09/2019 1 [employer] [place] - MED[place]ID REPLACEMENT HMO) Ann Hill [id number] Ann [place] 05/09/2019 2 [place] MED[place]ARE OR MEDICARE REPLACEMENT PRIMARY) Ann Hill [id number] Ann [place] 07/10/2019 1 [facility] [place] (MEDICARE - MEDICAID REPLACEMENT HMO) Ann Hill [id number] Ann [place] 07/10/2019 2 [place] OR MEDICARE REPLACEMENT PRIMARY) Ann Hill [id number] Ann [place] Notes Date Note Type Note Provider Name and Address Organization Details Recorded Time 02/22/2018 text/html insurance will not pay for humalog 75/25 any longer Gerald Perez PA-C Attn: Accounting,[address] [place], [address], [facility] 02/22/2018 17:47:53 09/21/2018 text/html no changes .... Gerald Perez PA-C Attn: Accounting,[address] [place], [address], [facility] 09/21/2018 20:47:30 12/01/2018 text/html some drainage , minimal , left lower leg above ankle medial aspect Gerald Perez PA-C Attn: Accounting,[address] [place], [address], [facility] 12/03/2018 16:54:10 05/09/2019 text/html redness and increased warmth , both lower legs ...... Gerald Perez PA-C Attn: Accounting,[address] [place], [address], [facility] 05/14/2019 17:08:00 07/10/2019 text/html hayfever acting up ..... Gerald Perez PA-C Attn: Accounting,[address] [place], [address], [facility] 07/13/2019 17:21:46 OBGyn Episode No OBEpisode recorded.
[2024-05-03 20:39] LABS: Fractional Inspired Oxygen 32 %; HCO3 ABG 27.6 mEq/l (22.0-26.0); Oxygen Content ABG 18.6 %vol (16.0-22.0); Oxygen Saturation ABG 93.5 % (95.0-100.0); Oxyhemoglobin 92.8 % THb (90.0-100.0); PO2 ABG 79.3 mmHg (80.0-100.0); PO2 FiO2 Ratio Arterial Blood 2.48 %; Total Hemoglobin 14.2 g/dL (12.0-18.0)
[2024-05-03 20:41] LABS: Influenza A QL RT-PCR Positive (Negative); Influenza B QL RT-PCR Negative (Negative); RSV RNA, RT-PCR Negative (Negative); SARS-CoV-2 RNA PCR Negative (Negative)
[2024-05-03] MEDS: IPRATROPIUM 0.5 MG/ALBUTEROL SULFATE 2.5 MG AMPUL.NEB 3 ML 12 ML INHALATION (20:55)
[2024-05-03 21:01] LABS: Device NASAL CANNULA; Modified Allen's Test Pass; Site Drawn LEFT RADIAL; pH ABG 7.253 (7.350-7.450)
--- NOTE | 2024-05-03 21:45 | ED_ITS ---
HPI - General Adult General Chief complaint: Fall Stated complaint: fall, altered mental status Time Seen by Provider: 05/03/24 17:38 History of Present Illness HPI narrative: This is a 73-year-old female presenting to the ED after a fall. The patient herself does not remember happened. Patient cannot provide any useful history. Per the family they have had a viral illness going through the house. Symptoms have included nausea vomiting and diarrhea. Related Data Home Medications ?Medication ?Instructions ?Recorded ?Confirmed ?Last Taken ?Type atorvastatin 10 mg tablet 10 mg PO DAILY 02/07/19 11/17/23 Unknown History insulin syringe-needle U-100 0.5 #10 ea 02/07/19 11/17/23 Unknown History mL 31 gauge x 5/16 (Comfort EZ Insulin Syringe) montelukast 10 mg tablet 10 mg PO DAILY 02/07/19 11/17/23 Unknown History citalopram 40 mg tablet 40 mg PO HS 05/03/20 11/17/23 Unknown History insulin aspart U-100 100 unit/mL 10 unit subcut TIDWM 05/03/20 11/17/23 11/16/23 17:00 History (3 mL) subcutaneous pen (Novolog FlexPen U-100 Insulin aspart) insulin glargine 100 unit/mL (3 60 unit subcut HS 05/03/20 11/17/23 Unknown History mL) subcutaneous pen (Basaglar KwikPen U-100 Insulin) lisinopril 5 mg tablet 5 mg PO DAILY 05/03/20 11/17/23 Unknown History gabapentin 300 mg tablet 300 mg PO BID 11/17/23 11/17/23 Unknown History Allergies Allergy/AdvReac Type Severity Reaction Status Date / Time bee venom protein (honey Allergy Unconscious Verified 05/04/20 23:55 bee) (bees) COUNTS INCLUDE 234 BEDS AT THE [facility] Past Medical History Medical History Overflow stress urinary incontinence in female Diabetic neuropathy Morbid obesity Essential hypertension Hyperlipidemia Diabetes Surgical History Surgical History History of tubal ligation History of cholecystectomy Family History Family History Mother Hypercholesterolemia Malignant neoplasm of skin Father Heart disease Grandparent Diabetes mellitus Other Diabetes mellitus Breast cancer Social History Social History Social History: She is and lives with a roommate. She has 1 adult daughter. Her son in 2012 due to an ATV accident. She has smoked as much as pack of cigarettes per day since she was a teenager. She is currently cut down to half a pack of cigarettes per day for the last year or so. She occasionally drinks alcohol in moderation. She denies any illicit substance use. 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 Code status: Full code Surrogate decision maker: Daughter Smoking packs per day: 0.5 Smoking cigarettes per day: 10.0 Years smoked: 30 Smoking pack-years: 15.00 Smoking status: Current every day smoker Tobacco type: cigarettes Alcohol intake: never Drinks per week: 1 Substance use: never Substance use type: marijuana Do You Feel Safe in your Home?: Yes Lack of Transportation: YES Lack of Food: Never True Current Housing: I Have Housing Concerned About Future Housing: YES Difficulty Paying Gas/Electric Bills: No Difficulty Paying for Meds: No Currently Unemployed: No Education: High School Diploma/GED Difficulty w/ Childcare or Family Care: No Gender identity (if verbalized by the patient): Female Sexual Orientation (if Verbalized by the Patient): Straight or Heterosexual Spiritual care concerns: No Exam 2 Narrative: APPEARANCE: Ill appearing Head: Periorbital ecchymosis, no loss of vision, no pain on EOMI EYES: EOMI, NOSE: Atraumatic NECK: Trachea midline RESPIRATORY: Tachypnic, decreased lung sounds in all [place]. CARDIOVASCULAR: Tachycardia, irregular ABDOMINAL: Non-distended MUSCULOSKELETAl: No obvious deformities NEURO: Alert. Moving 4/4 extremities SKIN:: Chronic venous insufficiency of the lower extremities without active cellulitis or signs of infection PSYCHIATRIC: Normal affect Course Vital Signs Vital signs: Vital Signs Blood Pressure 181/121 H 05/03/24 15:05 Pulse Oximetry 92 05/03/24 15:05 Oxygen Delivery Nasal Cannula 05/03/24 15:05 Oxygen Flow Rate 4 05/03/24 15:05 Pulse Rate 105 H 05/03/24 20:55 Respiratory Rate 19 05/03/24 20:55 Blood Pressure 170/99 H 05/03/24 18:02 Pulse Oximetry 95 05/03/24 19:31 Oxygen Delivery Nasal Cannula 05/03/24 15:55 Oxygen Flow Rate 4 05/03/24 15:55 Medical Decision Making [facility] Narrative Medical decision making narrative: -Course: 73-year-old female presenting after a ground level fall. On exam patient is ill-appearing. She has periorbital ecchymoses left eye but no loss of vision or eye pain. Trauma workup negative. Her lung sounds are distant with decreased air movement. ABG showed hypercarbic respiratory failure. Patient given 1 hour long breathing treatment, steroids and placed on BiPAP 15/5/40%. CT chest showed infiltrates with air bronchograms consistent with pneumonia. Influenza is positive. Given the patient's poor overall health we will placed on antibiotics to cover bacterial infection despite the positive influenza. She will also be placed on Tamiflu. EKG showed AFib with RVR. Patient started on diltiazem drip Patient be admitted IMU for further management. -DDX includes but is not limited to: Sepsis, UTI, pneumonia, dehydration, viral illness, COPD exacerbation Vital Signs Vital Signs: Vital Signs Blood Pressure 181/121 H 05/03/24 15:05 Pulse Oximetry 92 05/03/24 15:05 Oxygen Delivery Nasal Cannula 05/03/24 15:05 Oxygen Flow Rate 4 05/03/24 15:05 Pulse Rate 105 H 05/03/24 20:55 Respiratory Rate 19 05/03/24 20:55 Blood Pressure 170/99 H 05/03/24 18:02 Pulse Oximetry 95 05/03/24 19:31 Oxygen Delivery Nasal Cannula 05/03/24 15:55 Oxygen Flow Rate 4 05/03/24 15:55 Lab Data 05/03/24 15:44 05/03/24 15:44 Labs: Lab Results 05/03/24 05/03/24 05/03/24 Range/Units 15:44 15:48 20:00 WBC 7.3 (4.5-10.0) K/mm3 RBC 4.82 (4.2-5.4) M/mm3 Hgb 14.0 (12.0-15.0) g/dL Hct 44.8 (37.0-47.0) % MCV 92.9 (80-100) fl MCH 29.0 (26-34) pg MCHC 31.3 L (32-36) g/dl RDW 14.2 (11.5-14.5) % Plt Count 223 (150-375) k/mm3 MPV 10.4 (7.4-10.4) fl Immature Gran % (Auto) 0.4 (0-0.5) % Neut % (Auto) 78.3 H (45.5-73.1) % Lymph % (Auto) 10.4 L (18.3-44.2) % [place] % (Auto) 10.5 H (2.6-8.5) % Eos % (Auto) 0.0 (0-4.4) % Baso % (Auto) 0.4 (0.2-1.2) % Lymph # (Auto) 0.76 L (0.9-3.2) K/mm3 [place] # (Auto) 0.8 H (0.1-0.6) K/mm3 Eos # (Auto) 0.0 (0-0.3) K/mm3 Baso # (Auto) 0.0 (0.0-0.1) K/mm3 Abs Immat Gran (auto) 0.03 (0.00-0.031) K/mm3 Absolute Neuts (auto) 5.7 (1.3-6.7) K/mm3 Absolute Nucleated RBC 0.000 (0.0-0.012) K/mm3 Nucleated RBC % 0.0 (0.0-0.2) % Sodium 133 L (137-145) mmol/L Potassium 4.6 (3.4-5.0) mmol/L Chloride 98 (98-107) mmol/L Carbon Dioxide 24 (22-30) mmol/L Anion Gap 11 (4-12) mmol/L BUN 19 H (7-17) mg/dL Creatinine 0.70 (0.7-1.0) mg/dL Estim Creat Clear Calc Not Reportable Estimated GFR > 60 (59 - ) Glucose 293 H (65-110) mg/dL Calcium 9.2 (8.4-10.2) mg/dL Total Bilirubin 0.7 (0.2-1.3) mg/dL AST 30 (14-36) U/L ALT 35 (6-35) U/L Alkaline Phosphatase 119 (38-126) U/L Total Protein 8.0 (6.3-8.2) g/dL Albumin 3.8 (3.5-5.1) g/dL Urine Color Dark yellow (Yellow) Urine Appearance Clear (Clear) Urine pH 5.5 (5.0-9.0) Ur Specific [place] 1.033 (1.001-1.035) Urine Protein 4+ H (Negative) mg/dL Urine Glucose (UA) 3+ H (Negative) mg/dL Urine Ketones Negative (Negative) mg/dL Ur Blood (Man) 3+ H (Negative) Urine Nitrate Positive H (Negative) Urine Bilirubin Negative (Negative) Urine Urobilinogen 2.0 H (<2.0) mg/dL Leukocyte Esterase Rfl Negative (Negative) LITO/UL Urine RBC 6-10 H (0-2) /hpf Urine WBC 11-20 H (0-3) /hpf Ur Squamous Epith Cells Occasional (Few) /hpf Urine Bacteria 2+ H /hpf Urine Casts >20 Hyaline Casts Present (None) /lpf Nasal MRSA (PCR) Influenza A (RT-PCR) Positive A (Negative) Influenza B (RT-PCR) Negative (Negative) RSV (RT-PCR) Negative (Negative) SARS-CoV-2 RNA (RT-PCR) Negative (Negative) 05/03/24 Range/Units 20:38 WBC (4.5-10.0) K/mm3 RBC (4.2-5.4) M/mm3 Hgb (12.0-15.0) g/dL Hct (37.0-47.0) % MCV (80-100) fl MCH (26-34) pg MCHC (32-36) g/dl RDW (11.5-14.5) % Plt Count (150-375) k/mm3 MPV (7.4-10.4) fl Immature Gran % (Auto) (0-0.5) % Neut % (Auto) (45.5-73.1) % Lymph % (Auto) (18.3-44.2) % [place] % (Auto) (2.6-8.5) % Eos % (Auto) (0-4.4) % Baso % (Auto) (0.2-1.2) % Lymph # (Auto) (0.9-3.2) K/mm3 [place] # (Auto) (0.1-0.6) K/mm3 Eos # (Auto) (0-0.3) K/mm3 Baso # (Auto) (0.0-0.1) K/mm3 Abs Immat Gran (auto) (0.00-0.031) K/mm3 Absolute Neuts (auto) (1.3-6.7) K/mm3 Absolute Nucleated RBC (0.0-0.012) K/mm3 Nucleated RBC % (0.0-0.2) % Sodium (137-145) mmol/L Potassium (3.4-5.0) mmol/L Chloride (98-107) mmol/L Carbon Dioxide (22-30) mmol/L Anion Gap (4-12) mmol/L BUN (7-17) mg/dL Creatinine (0.7-1.0) mg/dL Estim Creat Clear Calc Estimated GFR (59 - ) Glucose (65-110) mg/dL Calcium (8.4-10.2) mg/dL Total Bilirubin (0.2-1.3) mg/dL AST (14-36) U/L ALT (6-35) U/L Alkaline Phosphatase (38-126) U/L Total Protein (6.3-8.2) g/dL Albumin (3.5-5.1) g/dL Urine Color (Yellow) Urine Appearance (Clear) Urine pH (5.0-9.0) Ur Specific [place] (1.001-1.035) Urine Protein (Negative) mg/dL Urine Glucose (UA) (Negative) mg/dL Urine Ketones (Negative) mg/dL Ur Blood (Man) (Negative) Urine Nitrate (Negative) Urine Bilirubin (Negative) Urine Urobilinogen (<2.0) mg/dL Leukocyte Esterase Rfl (Negative) LITO/UL Urine RBC (0-2) /hpf Urine WBC (0-3) /hpf Ur Squamous Epith Cells (Few) /hpf Urine Bacteria /hpf Urine Casts Hyaline Casts (None) /lpf Nasal MRSA (PCR) Pending Influenza A (RT-PCR) (Negative) Influenza B (RT-PCR) (Negative) RSV (RT-PCR) (Negative) SARS-CoV-2 RNA (RT-PCR) (Negative) ABG Data ABG results: 05/03/24 20:15 Puncture Site Left radial ABG pH 7.253 L* ABG pCO2 64.0 H* ABG pO2 79.3 L ABG PO2/FiO2 Ratio 2.48 ABG HCO3 27.6 H ABG O2 Saturation 93.5 L ABG O2 Content 18.6 ABG Base Excess -1.0 A-a Gradient 74.0 Oxyhemoglobin 92.8 Total Hemoglobin 14.2 O2 Delivery Device Nasal cannula O2 Liters/Min 3.0 FiO2 32 Critical Care Time Critical Care Time Critical Care Time: Yes Total Critical Care Time: 35 Discharge Plan Discharge Clinical Impression: Influenza, Acute hypercapnic respiratory failure, Atrial fibrillation with rapid ventricular response, PNA (pneumonia) Patient Disposition: Still a Patient Condition: Guarded Prognosis Patient Language: Luxembourger Prescriptions: No Action atorvastatin 10 mg tablet 10 mg PO DAILY (DME) insulin syringe-needle U-100 [Comfort EZ Insulin Syringe] 0.5 mL 31 gauge x 5/16 syringe See Rx Instructions .ROUTE .MEDSUPPLY Qty: 10 Rx Instructions: As directed montelukast 10 mg tablet 10 mg PO DAILY citalopram 40 mg tablet 40 mg PO HS lisinopril 5 mg tablet 5 mg PO DAILY insulin glargine [Basaglar KwikPen U-100 Insulin] 100 unit/mL (3 mL) insulin pen 60 unit SUBCUT HS insulin aspart U-100 [Novolog FlexPen U-100 Insulin] 100 unit/mL (3 mL) insulin pen 10 unit SUBCUT TIDWM aspirin 325 mg Tablet 325 mg PO DAILY@0800 Qty: 30 2RF gabapentin 300 mg Tablet 300 mg PO BID albuterol sulfate [Proventil HFA] 90 mcg/actuation Hfa Aerosol Inhaler 2 puff inhalation Q6HRT PRN (Reason: Shortness Of Breath) Qty: 1 0RF Eliquis 5 mg Tablet 5 mg PO Q12HR Qty: 60 0RF metoprolol succinate 50 mg Tablet Extended Release 24 Hr 50 mg PO QAM Qty: 30 0RF fluticasone propionate 50 mcg/actuation [place],Suspension 2 spray intranasal QAM Qty: 1 0RF doxycycline hyclate 100 mg Tablet 100 mg PO Q12HR Qty: 23 0RF loratadine 10 mg Tablet 10 mg PO QAM Qty: 30 0RF amoxicillin-pot clavulanate 875-125 mg tablet 1 tablet PO Q12H Qty: 23 0RF Follow-up/Referrals: Shon,Doyle Diaz, ASSISTANT INFANT TEACHER [Primary Care Provider] -
[2024-05-03 21:52] LABS: MRSA (PCR) NOT DETECTED (NOT DETECTE)
[2024-05-03] MEDS: CEFEPIME 2 GM/NS 50 ML 2 GM/50 ML BAG IVPB (22:02)
[2024-05-03] MEDS: LACTATED RINGERS 1,000 ML 999 ML IV CONT ×4 (22:04→22:06)
[2024-05-03] MEDS: LACTATED RINGERS 100 ML 999 ML IV CONT (22:06)
--- NOTE | 2024-05-03 22:31 | PM.IMHP ---
H&P: HPI History of Present Illness Date/Time: 05/03/24 22:31 Chief Complaint: Fall Narrative: 73 y/o F presents here with a ground level fall with PMH of asthma, hypertension, hyperlipidemia, anxiety, depression, and diabetes. Patient presents here from home via EMS for further evaluation post-ground level fall. She reports that she fell an hour prior to arrival of the EMS crew. She does not remember events leading to the fall. She arrived with a contusion to her left eye. She currently endorses fatigue, shortness of breath, and generalized weakness. Denies abdominal pain, nausea, vomiting, diarrhea. She reports onset of cold-like symptoms approximately 1 week ago. Of note, it was reported to the ED team that a illness had been going through her house hold causing symptoms including nausea, vomiting, and diarrhea. Patient is a difficult historian. Initial VS at presentation: HR 118, RR 30, 181/121, and 92% on 4L NC. ED workup showed: No leukocytosis, no anemia, ABG showed pH of 7.253/CO2 64/O2 79.3/HC03 27.3/O2 saturation 93.5, creatinine 0.7 and GFR >60, glucose 293, and UA suspicious for UTI. Patient tested positive for Influenza A. CXR showed airspace opacification the right mid to lower lung zone, unchanged from prior. Head CT showed no acute intracranial hemorrhage or suspicious mass-effect, left frontal scalp hematoma without underlying fracture. C-spine CT showed straightening of the normal curvature of the cervical spine likely muscular in origin, degenerative disease without acute fracture. CT chest/abdomen/pelvis showed innumerable findings, not acute (see report for details). Review of Systems Review of Systems: All systems reviewed & are unremarkable except as noted in HPI and below [facility] Past Medical History Medical History Hyperlipidemia Asthma Arthritis Depression Anxiety Atrial fibrillation Overflow stress urinary incontinence in female Diabetic neuropathy Morbid obesity Essential hypertension Diabetes Surgical History Surgical History History of tubal ligation History of cholecystectomy Family History Family History Mother Hypercholesterolemia Malignant neoplasm of skin Father Heart disease Grandparent Diabetes mellitus Other Diabetes mellitus Breast cancer Social History Social History Social History: She is and lives with a roommate. She has 1 adult daughter. Her son in 2012 due to an ATV accident. She has smoked as much as pack of cigarettes per day since she was a teenager. She is currently cut down to half a pack of cigarettes per day for the last year or so. She occasionally drinks alcohol in moderation. She denies any illicit substance use. 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 Code status: Full code Surrogate decision maker: Daughter Smoking packs per day: 0.5 Smoking cigarettes per day: 10.0 Years smoked: 30 Smoking pack-years: 15.00 Smoking status: Current every day smoker Tobacco type: cigarettes Alcohol intake: never Drinks per week: 1 Substance use: never Substance use type: marijuana Do You Feel Safe in your Home?: Yes Lack of Transportation: YES Lack of Food: Never True Current Housing: I Have Housing Concerned About Future Housing: YES Difficulty Paying Gas/Electric Bills: No Difficulty Paying for Meds: No Currently Unemployed: No Education: High School Diploma/GED Difficulty w/ Childcare or Family Care: No Gender identity (if verbalized by the patient): Female Sexual Orientation (if Verbalized by the Patient): Straight or Heterosexual Spiritual care concerns: No Meds Home Medications and Allergies Home Medications ?Medication ?Instructions ?Recorded ?Confirmed ?Type atorvastatin 10 mg tablet 10 mg PO DAILY 02/07/19 11/17/23 History insulin syringe-needle U-100 0.5 #10 ea 02/07/19 11/17/23 History mL 31 gauge x 5/16 (Comfort EZ Insulin Syringe) montelukast 10 mg tablet 10 mg PO DAILY 02/07/19 11/17/23 History citalopram 40 mg tablet 40 mg PO HS 05/03/20 11/17/23 History insulin aspart U-100 100 unit/mL 10 unit subcut TIDWM 05/03/20 11/17/23 History (3 mL) subcutaneous pen (Novolog FlexPen U-100 Insulin aspart) insulin glargine 100 unit/mL (3 60 unit subcut HS 05/03/20 11/17/23 History mL) subcutaneous pen (Basaglar KwikPen U-100 Insulin) lisinopril 5 mg tablet 5 mg PO DAILY 05/03/20 11/17/23 History aspirin 325 mg tablet 325 mg PO DAILY@0800 #30 tabs 05/10/20 11/17/23 Rx gabapentin 300 mg tablet 300 mg PO BID 11/17/23 11/17/23 History albuterol sulfate 90 mcg/actuation 2 puff inhalation Q6HRT PRN 11/19/23 Rx aerosol inhaler (Proventil HFA) Shortness Of Breath #1 applicator amoxicillin 875 mg-potassium 1 tablet PO Q12H #23 tabs 11/19/23 Rx clavulanate 125 mg tablet apixaban 5 mg tablet (Eliquis) 5 mg PO Q12HR #60 tabs 11/19/23 Rx doxycycline hyclate 100 mg tablet 100 mg PO Q12HR #23 tabs 11/19/23 Rx fluticasone propionate 50 2 spray intranasal QAM #1 11/19/23 Rx mcg/actuation nasal applicator spray,suspension loratadine 10 mg tablet 10 mg PO QAM #30 tabs 11/19/23 Rx metoprolol succinate 50 mg 50 mg PO QAM #30 tabs 11/19/23 Rx tablet,extended release 24 hr Allergies Allergy/AdvReac Type Severity Reaction Status Date / Time bee venom protein (honey Allergy Unconscious Verified 05/04/20 23:55 bee) (bees) Vital Signs Vital Signs - 24 hr 05/03/24 15:05 05/03/24 15:31 05/03/24 15:49 Pulse Rate 118 H Respiratory Rate 30 H Blood Pressure 181/121 H 168/119 H Pulse Oximetry 92 92 94 Oxygen Delivery Nasal Cannula Nasal Cannula Oxygen Flow Rate 4 4 05/03/24 15:55 05/03/24 17:02 05/03/24 18:02 Pulse Rate 102 H 108 H Respiratory Rate 25 H 26 H Blood Pressure 161/102 H 170/99 H Pulse Oximetry 95 95 94 Oxygen Delivery Nasal Cannula Oxygen Flow Rate 4 05/03/24 18:57 05/03/24 18:58 05/03/24 19:00 Pulse Rate 106 H 117 H 106 H Respiratory Rate 27 H 24 H 25 H Blood Pressure 150/95 H 171/114 H Pulse Oximetry 95 92 91 Oxygen Delivery Oxygen Flow Rate 05/03/24 19:31 02/05/25 20:21 05/03/24 20:41 Pulse Rate 105 H 109 H 92 Respiratory Rate 30 H 25 H 28 H Blood Pressure 148/119 H 142/81 H Pulse Oximetry 95 91 88 L Oxygen Delivery Oxygen Flow Rate 05/03/24 20:55 05/03/24 21:16 05/03/24 21:30 Pulse Rate 105 H 115 H 120 H Respiratory Rate 19 26 H 28 H Blood Pressure Pulse Oximetry 99 99 Oxygen Delivery Oxygen Flow Rate 05/03/24 21:30 05/03/24 21:45 05/03/24 22:00 Pulse Rate 117 H 109 H Respiratory Rate 16 26 H 43 H Blood Pressure 142/82 H Pulse Oximetry 98 100 100 Oxygen Delivery BiPAP Oxygen Flow Rate Exam Const: General: comfortable and no acute distress Other: , female, obese body habitus, ill-appearing, disheveled. Recumbent in ED stretcher. HENMT: Face/Nose/Sinus: Normal nares present Mouth: Yes dry mucous membranes Other: BiPAP in place Eyes: Sclera: sclerae normal Pupils: Equal, round and reactive pupils present Other: Significant ecchymosis and swelling to left eye. Difficult exam. Resp: Other: +tachypnea. Coarse lung sounds. Bibasilar crackles. Faint expiratory wheeze. Cardio: Rate: tachycardic (108) Rhythm: abnormal rhythm Other: No murmur or rub. GI: Other: Abdomen soft, nondistended, nontender. Skin: General skin exam: normal color and no rashes or lesions noted Other: [place] appearance to bilateral distal calves with erythema. No active drainage or weeping. Neuro: Speech: normal speech Sensory Exam: normal sensation Other: +generalized weakness. A&O x3. Difficult historian for situational history. Moving all extremities. Extrem: General: normal exam except as noted (See skin) Psych: Mental Status: mental status grossly normal Affect: normal affect Other: Fair insight and judgment. H&P: Results Labs Labs: Short CBC 05/03/24 Range/Units 15:44 WBC 7.3 (4.5-10.0) K/mm3 Hgb 14.0 (12.0-15.0) g/dL Hct 44.8 (37.0-47.0) % Plt Count 223 (150-375) k/mm3 BMP 05/03/24 15:44 Sodium 133 L Potassium 4.6 Chloride 98 Carbon Dioxide 24 BUN 19 H Creatinine 0.70 Glucose 293 H Calcium 9.2 Liver Function 05/03/24 Range/Units 15:44 Total Bilirubin 0.7 (0.2-1.3) mg/dL AST 30 (14-36) U/L ALT 35 (6-35) U/L Alkaline Phosphatase 119 (38-126) U/L Albumin 3.8 (3.5-5.1) g/dL Urine 05/03/24 Range/Units 15:48 Urine Color Dark yellow (Yellow) Urine Appearance Clear (Clear) Urine pH 5.5 (5.0-9.0) Ur Specific [place] 1.033 (1.001-1.035) Urine Protein 4+ H (Negative) mg/dL Urine Glucose (UA) 3+ H (Negative) mg/dL Assessment and Plan Assessment and plan (1) Sepsis: Qualifiers: Acute respiratory failure type: with hypercapnia Sepsis acute organ dysfunction status: with acute organ dysfunction Sepsis type: sepsis due to unspecified organism Severe sepsis acute organ dysfunction type: acute respiratory failure Severe sepsis shock status: without septic shock Qualified Code(s): A41.9 - Sepsis, unspecified organism; R65.20 - Severe sepsis without septic shock; J96.02 - Acute respiratory failure with hypercapnia Code(s): A41.9 - Sepsis, unspecified organism Status: Acute Assessment and Plan: - meets SIRS criteria: HR, RR. +hypoxia. -hypoTN. - lactic acid pending - 30 mL/kg = 4L, given in ED - suspected source: PNA and UTI - started on cefepime, doxycycline, and vancomycin on 05/03 - blood cultures drawn on 05/03, follow - UA suspicious for UTI, see below - CXR/CT suspicious for pneumonia, see below - monitor O2 saturation hemodynamic stability (2) Acute respiratory failure with hypoxia and hypercapnia: Code(s): J96.01 - Acute respiratory failure with hypoxia; J96.02 - Acute respiratory failure with hypercapnia Status: Acute Assessment and Plan: - CXR: Airspace opacification within the right mid to lower lung field, unchanged from prior. - CT chest/abd/pelvis: No cross-sectional imaging evidence of acute traumatic injury. Innumerable nonacute findings, as detailed above. Patchy consolidation within the right middle lobe, with air bronchograms. - EKG, initial: AFib RVR with aberrant conduction or ventricular premature complexes, right axis deviation, possible right ventricular conduction delay, cannot rule out septal infarct age indeterminate, borderline ST-T-wave abnormality inferior leads. When compared to EKG done in October of 2023, there is no significant change. - ABG, initial: pH 7.253, pCO2 64, pO2 79.3, HCO3 27.6, O2 sat 93.5% on 3L NC. - suspect acute respiratory failure is multifactorial including pneumonia, influenza a, and tachycardia - telemetry monitoring - continue supplemental O2, maintain O2 saturation greater than 92%, wean as tolerated (3) PNA (pneumonia): Qualifiers: Pneumonia type: due to influenza A virus Qualified Code(s): J10.00 - Influenza due to other identified influenza virus with unspecified type of pneumonia Code(s): J18.9 - Pneumonia, unspecified organism Status: Acute Assessment and Plan: - risk factors and complicating factors: Flu a, UTI - started on cefepime, vancomycin, and doxycycline - MRSA PCR and sputum culture - supportive care - continue supplemental O2 to maintain O2 saturation greater than 92% (4) UTI (urinary tract infection): Qualifiers: Hematuria presence: without hematuria Urinary tract infection type: acute cystitis Qualified Code(s): N30.00 - Acute cystitis without hematuria Code(s): N39.0 - Urinary tract infection, site not specified Status: Acute Assessment and Plan: - UA consistent with UTI, occasional epithelial cells - UC pending - previous micro reviewed, pansensitive E coli in 2023 - started on cefepime (given current pneumonia) on 05/03 (5) Influenza: Code(s): J11.1 - Influenza due to unidentified influenza virus with other respiratory manifestations Status: Acute Assessment and Plan: - tested positive for influenza A on 05/03 - patient is not a candidate for Tamiflu, out of window - supportive care: Tylenol p.r.n. Mucinex antoni DuoNeb p.r.n. Tessalon Perles p.r.n. Lozenge p.r.n. Solu-Medrol 60 mg IV q.6 - monitor WBC/CBC (6) Atrial fibrillation with rapid ventricular response: Code(s): I48.91 - Unspecified atrial fibrillation Status: Acute Assessment and Plan: - initial EKG showed AFib RVR, initial rate upon arrival 118 - started on Cardizem gtt and current rate 109 - continue home Eliquis (7) Type 2 diabetes mellitus with hyperglycemia: Qualifiers: Diabetes mellitus snf insulin use: with snf use Qualified Code(s): E11.65 - Type 2 diabetes mellitus with hyperglycemia; Z79.4 - senior care (current) use of insulin Code(s): E11.65 - Type 2 diabetes mellitus with hyperglycemia Status: Chronic Assessment and Plan: - hypoglycemia protocol - POC blood glucose ACHS - continue home medication - correct regimen ordered - high dose TIDWM and HS, based off BMI. Patient started on steroid course. - A1C 7.4% on 10/2023 (8) Essential hypertension: Code(s): I10 - Essential (primary) hypertension Status: Chronic Assessment and Plan: - chronic, current range: 142/80 - 171/114 - continue home medications - monitor Plan Diet: Heart healthy GI Prophylaxis: Not currently indicated DVT Prophylaxis: Eliquis Lines: Peripheral Code Status: Full code Quality VTE Prophylaxis VTE prophylaxis: pharmacologic ordered Hospitalist [facility] Advance Care Plan I have confirmed that the patient's Advanced Care Plan is present, code status is documented, or surrogate decision maker is listed in patient medical record.: Yes Medication Reconciliation I have utilized all available resources to obtain, update and review the patients current medications (includes all prescriptions, OTC, herbals, cannabis, and nutritional supplements).: Yes
[2024-05-03] MEDS: DOXYCYCLINE 100 MG/NS 100 ML 100 MG/100 ML BAG IVPB (22:51)
[2024-05-03] MEDS: dilTIAZem HCl INJ 25 MG/5 ML VIAL 10 MG IV PUSH (22:58)
[2024-05-03] MEDS: dilTIAZem 100 MG/100 ML 100 MG/100 ML BAG IV CONT (23:01)
[2024-05-04] VITALS (47 sets, daily range): BP systolic 77–161; BP diastolic 55–111; PULSE 56–128; RESP 23–27; TEMP 36.9–38.3; O2SAT 91–100; BMI 52.4
--- NOTE | 2024-05-04 00:17 | PC.NURSE ---
Jenae Hill [facility]- [phone]
[2024-05-04] MEDS: VANCOMYCIN 1,250 MG/NS 250 ML 1,250 MG/250 ML BAG 166.67 MG IVPB ×4 (02:10→16:02)
[2024-05-04] MEDS: methylPREDNISolone SOD SUCC 125 MG VIAL 60 MG IV PUSH ×5 (02:12→23:05)
[2024-05-04] MEDS: OSELTAMIVIR PHOSPHATE 75 MG CAPSULE PO ×3 (02:12→20:32)
[2024-05-04] MEDS: ONDANSETRON INJ 4 MG/2 ML VIAL IV PUSH (03:38)
--- NOTE | 2024-05-04 03:50 | ADMGEN ---
This patient, Ann Hill, was admitted to IMU Room 232-01. Patient/family oriented to hospital policies and general routines including ID bracelet, bed and alarms, visiting hours, pain management, procedures, bathroom and other care routines, personal items, smoking policy, room service/diet, and visiting hours. Information on how to activate the Rapid Response Team has been discussed. Patient/Family are encouraged to report perceived risks to care and to ask questions if they do not understand what they are told or what they should do.
[2024-05-04 04:17] LABS: Alveolar/Arterial O2 Gradient 482.3 mmHg; Base Excess ABG -4.7 mEq/l (+/-2.0); Fractional Inspired Oxygen 90 %; HCO3 ABG 26.5 mEq/l (22.0-26.0); Oxygen Content ABG 18.5 %vol (16.0-22.0); Oxygen Saturation ABG 89.8 % (95.0-100.0); Oxyhemoglobin 90.8 % THb (90.0-100.0); PO2 FiO2 Ratio Arterial Blood 0.84 %; Total Hemoglobin 14.5 g/dL (12.0-18.0)
[2024-05-04 04:44] LABS: Glucose Point of Care 233 mg/dl (65-105)
--- NOTE | 2024-05-04 05:13 | PM.CCN ---
Critical Care Event Note Summary Code activated: No Narrative: 05/04/2024 at 03:45 Nursing staff called to state the patient was nauseated. They report that they had taken the patient off of BiPAP due to her nausea. I provided in order for Zofran. The patient had received a her a nebulizer treatment around that time and respiratory therapy reported labored respirations. I ordered a stat ABG as 1 had not been performed since patient had been in the ER. The patient's results seemed to be more consistent with a venous specimen. We wanted to confirm this so repeat ABG was ordered. It was unclear if in the blood gas was venous versus arterial. When I arrived to evaluate the patient the patient was alert oriented to person, place and month in year but she was somnolent and kept falling back asleep. But time I had arrived at the patient's bedside she had been taken off of high-flow nasal cannula placed on Airvo. When I when out to talk to nursing staff about the patient's response to the Zofran and asked for the patient to be placed back on BiPAP... When I arrived back to the room not even 5 minutes later the patient was having visual hallucinations. Respiratory therapy also was able to obtain verified ABG result of 7.13 pCO2 of 81 and PO2 of 76. On exam at that time, the patient was responding to internal stimuli and seeing objects that were not present. Will place patient back on BiPAP even with adjustments in BiPAP the patient was not consistently maintaining tidal volumes. Staff made numerous attempts to contact the patient's daughter. We were in the process of transferring the patient to the ICU for intubation when we were finally able to reach the patient's daughter who confirmed the patient's code status is full code. We patient to the ICU where she received sedation medications with etomidate and succinylcholine for RSI. She is intubated with a 8.0 ET tube measuring 23 at the lip. Is placed on ventilator with tidal volume 350 peep of 5 and rate of 26. Sedation medications were order with fentanyl and Versed. Will aim for RASS of 0 to -2. Patient is tolerating settings well. Stat chest x-ray was obtained and reviewed. Given the angled x-ray was a obtained at difficult to tell the distance from the nancy I think that the ET tube appeared to be in appropriate position. I am awaiting official radiologic interpretation. Archuleta catheter was placed during resuscitation efforts. The adoption coordinator was consulted and care and off at the end of my shift. Will continue scheduled IV Solu-Medrol. The patient received 1 dose of cefepime and doxycycline in the ER. Given the patient is now in the ICU and intubated will adjust antibiotics to cefepime and vancomycin and will add azithromycin for atypical coverage 95 minute spent in critical care activities. Due to a high probability of clinically significant, life threatening deterioration, the patient required my highest level of preparedness to intervene emergently and I personally spent this critical care time directly and personally managing the patient. This critical care time included obtaining a history; examining the patient; pulse oximetry; ordering and review of studies; arranging urgent treatment with development of a management plan; evaluation of patient's response to treatment; frequent reassessment; and discussions with other providers. It was exclusive of separately billable procedures and treating other patients and teaching time. Please see Assessment and Plan section and the rest of the note for further information on patient assessment and treatment. Critical care time: 75 - 104 mins
[2024-05-04 05:19] LABS: Hematocrit 42.1 % (37.0-47.0); Hemoglobin 12.5 g/dL (12.0-15.0); Mean Corpuscular HGB Conc 29.7 g/dl (32-36); Mean Corpuscular Hemoglobin 28.7 pg (26-34); Mean Corpuscular Volume 96.8 fl (80-100); Mean Platelet Volume 10.2 fl (7.4-10.4); Platelet Count Result 168 k/mm3 (150-375); Red Blood Count 4.35 M/mm3 (4.2-5.4); White Blood Count 14.6 K/mm3 (4.5-10.0)
[2024-05-04 05:30] LABS: Alanine Aminotransferase 31 U/L (6-35); Alkaline Phosphatase 89 U/L (38-126); Anion Gap 7 mmol/L (4-12); Aspartate Amino Transferase 30 U/L (14-36); Bilirubin,Total 0.6 mg/dL (0.2-1.3); Blood Urea Nitrogen 23 mg/dL (7-17); Calcium 8.7 mg/dL (8.4-10.2); Carbon Dioxide 25 mmol/L (22-30); Chloride 102 mmol/L (98-107); Estimated CRCL calculation 78 ml/min; Estimated Glomerular Filt Rate > 60; Glucose 223 mg/dL (65-110); Magnesium 1.7 mg/dL (1.6-2.3); Potassium 4.2 mmol/L (3.4-5.0); Sodium 134 mmol/L (137-145)
[2024-05-04] MEDS: MIDAZOLAM HCL (*CRX) 2 MG/2 ML VIAL IV PUSH (05:56)
[2024-05-04] MEDS: FENTANYL 2,500MCG/NS250ML(*CRX 2,500 MCG/250 ML BAG IV CONT (05:57)
[2024-05-04] MEDS: MIDAZOLAM 100MG/NS 100ML(*CRX) 100 MG/100 ML BAG IV CONT (06:03)
[2024-05-04] MEDS: RAPID SEQUENCE INTUBATION KIT 1 EACH (06:06)
[2024-05-04 06:29] LABS: INR 1.1; Prothrombin Time 14.5 Seconds (11.1-14.7)
[2024-05-04 06:30] LABS: Partial Thromboplastin Time 26.5 Seconds (22.3-36.8)
[2024-05-04 06:32] LABS: pH ABG 7.131 (7.350-7.450)
[2024-05-04 06:33] LABS: Device HIGH FLOW THERAPY; Modified Allen's Test Pass; PCO2 ABG 81.4 mmHg (35.0-45.0); Site Drawn LEFT RADIAL
[2024-05-04 06:39] LABS: Glucose Point of Care 200 mg/dl (65-105)
--- NOTE | 2024-05-04 07:00 | WPDPROCEDUR ---
Procedures Intubation Intubation Date: 05/04/24 Intubation Time: 05:30 Consent: Risk and benefits of procedure were discussed with the patient's daughter. Daughter consented to intubation. A pre-procedural Time-Out was completed immediately before starting the procedure and confirmed: Patient Identification, Site, Procedure, Patient Position and the Availability of Requisite Equipment: Yes Sedative: etomidate Mg given: 40 Paralytic: succinylcholine Mg given: 140 Laryngoscope: fiber optic video scope ET tube size: 8 Tube secured depth (cm): 22 Tube secured location: lips Tube placement confirmation: visualized tube passing through cords, equal breath sounds bilaterally, no breath sounds over epigastrium and confirmation by capnometry Patient tolerated procedure: no complications Intubation complications: none Additional comments: Chest x-ray reviewed ET tube appropriate position, no pneumothorax
[2024-05-04 07:23] LABS: Base Excess ABG -1.7 mEq/l (+/-2.0); Carboxyhemoglobin 0.4 % THb (0-2.0); Fractional Inspired Oxygen 100 %; HCO3 ABG 26.1 mEq/l (22.0-26.0); Methemoglobin ABG 0.2 %THb (0-1.5); Oxygen Content ABG 18.4 %vol (16.0-22.0); Oxygen Saturation ABG 99.1 % (95.0-100.0); Oxyhemoglobin 98.8 % THb (90.0-100.0); PO2 FiO2 Ratio Arterial Blood 1.87 %; Reduced Hemoglobin 0.6 %THb (0-5.0)
[2024-05-04 07:25] LABS: Device VENTILATOR; Site Drawn RIGHT RADIAL; pH ABG 7.271 (7.350-7.450)
[2024-05-04 07:26] LABS: Arterial Blood Gas PEEP 5 cmH2O; Arterial Blood Gas Tidal Volume 350 ml; Arterial Blood Gas Vent Mode CMV; Arterial Blood Gas Ventilator rate 26 /MIN
[2024-05-04] MEDS: IPRATROPIUM 0.5 MG/ALBUTEROL SULFATE 2.5 MG AMPUL.NEB 3 ML INHALATION ×2 (07:37→13:49)
[2024-05-04] MEDS: AZITHROMYCIN 500 MG/NS 250 ML 500 MG/250 ML BAG 250 MG IVPB (08:00)
[2024-05-04] MEDS: dilTIAZem 100 MG/100 ML 100 MG/100 ML BAG 10 MG IV CONT ×2 (09:06→18:26)
[2024-05-04] MEDS: CEFEPIME 2 GM/NS 50 ML 2 GM/50 ML BAG IVPB ×3 (09:06→21:50)
[2024-05-04] MEDS: ASPIRIN 81 MG ENTERIC TABLET PO (09:07)
[2024-05-04] MEDS: MINERAL OIL/WHITE PETROLATUM OINTMENT 1 APPLIC EACH EYE ×2 (09:07→20:33)
[2024-05-04] MEDS: PANTOPRAZOLE SODIUM IV 40 MG VIAL IV PUSH (09:08)
--- NOTE | 2024-05-04 09:14 | PC.NURSE ---
05/04/24 [id number] Patient received from [facility]. Report received from Meli Smith RN. 08/01/24 [id number] Patient intubated without complications.
[2024-05-04 09:59] LABS: MRSA (PCR) NOT DETECTED (NOT DETECTE)
[2024-05-04] MEDS: HEPARIN SOD/D5W 100 UNITS/ML 25,000 UNITS/250 ML BAG 15 UNITS IV CONT (10:12)
[2024-05-04] MEDS: HEPARIN SODIUM 5,000 UNITS/ML VIAL 7000 UNITS IV PUSH (10:12)
[2024-05-04 10:16] LABS: Band Neutrophils Percent 14 % (0-6); Eosinophils Absolute Manual 0.14 K/mm3 (0.02-0.50); Eosinophils Percent Manual 1 % (0-4); Lymphocytes Absolute Manual 0.14 K/mm3 (1.1-4.5); Monocytes Absolute Manual 0.58 K/mm3 (0.1-0.90); Monocytes Percent Manual 4 % (3-9); Neutrophils Absolute Manual 13.72 K/mm3 (1.7-7.2); Neutrophils Percent Manual 80 % (46-73); Platelet Estimate Adequate (Adequate); Schistocytes None Seen; Total Cells Counted 100
[2024-05-04 11:44] LABS: Glucose Point of Care 271 mg/dl (65-105)
[2024-05-04 11:59] LABS: Alveolar/Arterial O2 Gradient 300.1 mmHg; Base Excess ABG -2.8 mEq/l (+/-2.0); Fractional Inspired Oxygen 60 %; HCO3 ABG 22.9 mEq/l (22.0-26.0); Oxygen Content ABG 17.1 %vol (16.0-22.0); Oxygen Saturation ABG 95.3 % (95.0-100.0); Oxyhemoglobin 95.2 % THb (90.0-100.0); PO2 ABG 80.4 mmHg (80.0-100.0); PO2 FiO2 Ratio Arterial Blood 1.34 %; Total Hemoglobin 12.7 g/dL (12.0-18.0); pH ABG 7.344 (7.350-7.450)
[2024-05-04 12:02] LABS: Device VENTILATOR; Modified Allen's Test Pass; Site Drawn RIGHT RADIAL
[2024-05-04 12:03] LABS: Arterial Blood Gas PEEP 8 cmH2O; Arterial Blood Gas Tidal Volume 390 ml; Arterial Blood Gas Vent Mode CMV; Arterial Blood Gas Ventilator rate 26 /MIN
[2024-05-04] MEDS: INSULIN ASPART (*BKC) 100 UNITS/ML SUB-Q ×3 (12:41→23:26)
--- NOTE | 2024-05-04 13:11 | P.CONIN_ITS ---
Assessment and Plan Assessment and plan (1) Acute hypercapnic respiratory failure: Code(s): J96.02 - Acute respiratory failure with hypercapnia Status: Acute Assessment and Plan: Acute hypercapnic respiratory failure despite being on BiPAP, patient had altered mental status, hallucinations with worsening ABGs -intubated on in the early hours of 05/04/2024 -currently on CMV mode of ventilation, peep of 8, 60% FiO2, wean FiO2 to maintain O2 sats > 92% -likely related to pneumonia secondary to influenza -will start Xopenex and Atrovent nebulizer since patient had AFib RVR on admission -on azithromycin, cefepime and vancomycin (05/04) -continue Solu-Medrol for possible COPD exacerbation -sedated with fentanyl and Versed infusion, maintain RASS of 0 to -2, daily sedation vacation (2) Influenza: Code(s): J11.1 - Influenza due to unidentified influenza virus with other respiratory manifestations Status: Acute Assessment and Plan: Influenza A positive, continue Tamiflu (3) PNA (pneumonia): Qualifiers: Pneumonia type: due to influenza A virus Qualified Code(s): J10.00 - Influenza due to other identified influenza virus with unspecified type of pneumonia Code(s): J18.9 - Pneumonia, unspecified organism Status: Acute Assessment and Plan: Pneumonia likely related to influenza/community-acquired -continue antibiotics as above -currently on mechanical ventilation (4) UTI (urinary tract infection): Qualifiers: Urinary tract infection type: acute cystitis Hematuria presence: w ithout hematuria Qualified Code(s): N30.00 - Acute cystitis without hematuria Code(s): N39.0 - Urinary tract infection, site not specified Status: Acute Assessment and Plan: Urinalysis reflective UTI -continue antibiotics as above -blood and urine cultures have been obtained and pend (5) Atrial fibrillation with RVR: Code(s): I48.91 - Unspecified atrial fibrillation Status: Acute Assessment and Plan: AFib RVR on admission, started on heparin infusion and diltiazem infusion -heart rate better controlled -continue to monitor -patient on Eliquis and metoprolol at home (6) Type 2 diabetes mellitus with hyperglycemia: Qualifiers: Diabetes mellitus terminal operations manager insulin use: with terminal operations manager use Qualified Code(s): E11.65 - Type 2 diabetes mellitus with hyperglycemia; Z79.4 - MCC (current) use of insulin Code(s): E11.65 - Type 2 diabetes mellitus with hyperglycemia Status: Chronic Assessment and Plan: Accu-Cheks and sliding scale insulin -continue Lantus (7) Fall: Code(s): W19.XXXA - Unspecified fall, initial encounter Status: Acute Assessment and Plan: Patient status post fall at home with contusion to the left eye CT head did not show any acute intracranial hemorrhage or suspicious mass effect, left frontal scalp hematoma without underlying fracture CT cervical spine: Straightening of the normal curvature of the cervical spine, likely muscular in origin. Degenerative disease, without acute fracture. CT chest abdomen pelvis: No acute evidence of traumatic injury Patient will require PT/OT when she is extubated (8) Essential hypertension: Code(s): I10 - Essential (primary) hypertension Status: Chronic Assessment and Plan: Currently on diltiazem infusion, blood pressures are stable Plan DVT prophylaxis: Heparin infusion Stress ulcer prophylaxis: Protonix Nutrition: Will start tube feeds Code Status: Full code Critical Care Time Spent: 49 minutes Discussed with patient's daughter and updated her with patient's condition and plan of care. I explained to her why she was intubated because of hypercapnic respiratory failure, she comprehended the answered all her questions. Due to a high probability of clinically significant, life threatening deterioration, the patient required my highest level of preparedness to intervene emergently and I personally spent this critical care time directly and personally managing the patient. This critical care time included obtaining a history; examining the patient; pulse oximetry; ordering and review of studies; arranging urgent treatment with development of a management plan; evaluation of patient's response to treatment; frequent reassessment; and discussions with other providers. It was exclusive of separately billable procedures and treating other patients and teaching time. Please see Assessment and Plan section and the rest of the note for further information on patient assessment and treatment This dictation may have been done utilizing a voice recognition system. Attempts have been made to correct errors. However, there may be uncorrected grammatical, spelling, and recognitions errors present. Dis[employer] Consult Note Consult date: 05/04/24 Reason for consult: Acute hypercapnic respiratory failure, fall, contusion to left eye, fatigue, shortness of breath, generalized weakness, influenza A positive HPI: Ann Hill is a 73 year old female with past medical history of hypertension, asthma, hyperlipidemia, anxiety, depression, diabetes, tobacco abuse, smokes 1/2 packet per day per daughter. Patient lives with daughter, arrived by EMS after she had a fall with contusion to the left eye. She also complained of fatigue, shortness of breath and generalized weakness. In the ER she was tachycardic, tachypneic, O2 sats were 92% on 4 L nasal cannula. ABG showed a pH of 7.253, CO2 64, O2 79, bicarb 27, O2 sats 93%. Patient was placed on BiPAP, overnight patient started to have nausea with not much improvement in her hypercapnia. Patient was also hypoxic, altered mental status with visual hallucinations, repeat ABG showed a pH of 7.13, pCO2 of 81 and PO2 of 76. Patient was transfer the ICU and intubated with etomidate and succinylcholine for RSI. Patient was started on azithromycin and cefepime along with vancomycin. Patient also started on Tamiflu. CT head did not show any acute intracranial hemorrhage or suspicious mass effect, left frontal scalp hematoma without underlying fracture CT cervical spine: Straightening of the normal curvature of the cervical spine, likely muscular in origin. Degenerative disease, without acute fracture. CT chest abdomen pelvis: No acute evidence of traumatic injury Chest x-ray: Patchy bilateral airspace disease is moderate pulmonary edema with atelectasis correlate clinically for pneumonia. Small right pleural effusion 05/04/2024: Patient seen and examined the ICU remains intubated on CMV mode, peep of 8, 60% FiO2. Sedated with Versed and fentanyl infusion. Patient opens her eyes, follows simple commands in all extremities. Hemodynamically stable, in AFib but rate controlled. Low urine output in afebrile. Leukocytosis of 14.6 this morning. ABGs have improved, Review of Systems 2 Review of Systems: ROS unobtainable: Yes unobtainable due to endotracheal tube and unobtainable due to medical condition PMFSH Past Medical History Medical History Hyperlipidemia Asthma Arthritis Depression Anxiety Atrial fibrillation Overflow stress urinary incontinence in female Diabetic neuropathy Morbid obesity Essential hypertension Diabetes Surgical History Surgical History History of tubal ligation History of cholecystectomy Family History Family History Mother Hypercholesterolemia Malignant neoplasm of skin Father Heart disease Grandparent Diabetes mellitus Other Diabetes mellitus Breast cancer Social History Social History Social History: She is and lives with a roommate. She has 1 adult daughter. Her son in 2012 due to an ATV accident. She has smoked as much as pack of cigarettes per day since she was a teenager. She is currently cut down to half a pack of cigarettes per day for the last year or so. She occasionally drinks alcohol in moderation. She denies any illicit substance use. 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 Code status: Full code Surrogate decision maker: Daughter Smoking packs per day: 0.5 Smoking cigarettes per day: 10.0 Years smoked: 30 Smoking pack-years: 15.00 Smoking status: Current every day smoker Alcohol intake: never Drinks per week: 1 Substance use: never Substance use type: does not use Do You Feel Safe in your Home?: Yes Lack of Transportation: YES Lack of Food: Never True Current Housing: I Have Housing Concerned About Future Housing: YES Difficulty Paying Gas/Electric Bills: No Difficulty Paying for Meds: No Currently Unemployed: No Education: High School Diploma/GED Difficulty w/ Childcare or Family Care: No Gender identity (if verbalized by the patient): Female Sexual Orientation (if Verbalized by the Patient): Straight or Heterosexual Spiritual care concerns: No Meds Home Medications and Allergies Home Medications ?Medication ?Instructions ?Recorded ?Confirmed ?Type atorvastatin 10 mg tablet 10 mg PO DAILY 02/07/19 05/04/24 History insulin syringe-needle U-100 0.5 #10 ea 02/07/19 05/04/24 History mL 31 gauge x 5/16 (Comfort EZ Insulin Syringe) montelukast 10 mg tablet 10 mg PO DAILY 02/07/19 05/04/24 History citalopram 40 mg tablet 40 mg PO HS 05/03/20 05/04/24 History insulin aspart U-100 100 unit/mL 10 unit subcut TIDWM 05/03/20 05/04/24 History (3 mL) subcutaneous pen (Novolog FlexPen U-100 Insulin aspart) insulin glargine 100 unit/mL (3 60 unit subcut HS 05/03/20 05/04/24 History mL) subcutaneous pen (Basaglar KwikPen U-100 Insulin) lisinopril 5 mg tablet 5 mg PO DAILY 05/03/20 05/04/24 History gabapentin 300 mg tablet 300 mg PO BID 11/17/23 05/04/24 History apixaban 5 mg tablet (Eliquis) 5 mg PO Q12HR #60 tabs 11/19/23 05/04/24 Rx metoprolol succinate 50 mg 50 mg PO QAM #30 tabs 11/19/23 05/04/24 Rx tablet,extended release 24 hr aspirin 81 mg tablet,delayed 81 mg PO DAILY 05/04/24 05/04/24 History release hydrochlorothiazide 12.5 mg tablet 12.5 mg PO DAILY 05/04/24 05/04/24 History sitagliptin phosphate 100 mg 100 mg PO DAILY 05/04/24 05/04/24 History tablet (Januvia) Allergies Allergy/AdvReac Type Severity Reaction Status Date / Time bee venom protein (honey Allergy Unconscious Verified 05/04/20 23:55 bee) (bees) Vital Signs Vital Signs - 24 hr 05/03/24 15:05 05/03/24 15:31 05/03/24 15:49 Temperature Pulse Rate 118 H Respiratory Rate 30 H Blood Pressure 181/121 H 168/119 H Pulse Oximetry 92 92 94 Oxygen Delivery Nasal Cannula Nasal Cannula Oxygen Flow Rate 4 4 Fraction of Inspired Oxygen 05/03/24 15:55 05/03/24 17:02 05/03/24 18:02 Temperature Pulse Rate 102 H 108 H Respiratory Rate 25 H 26 H Blood Pressure 161/102 H 170/99 H Pulse Oximetry 95 95 94 Oxygen Delivery Nasal Cannula Oxygen Flow Rate 4 Fraction of Inspired Oxygen 05/03/24 18:57 05/03/24 18:58 05/03/24 19:00 Temperature Pulse Rate 106 H 117 H 106 H Respiratory Rate 27 H 24 H 25 H Blood Pressure 150/95 H 171/114 H Pulse Oximetry 95 92 91 Oxygen Delivery Oxygen Flow Rate Fraction of Inspired Oxygen 05/03/24 19:31 05/03/24 20:21 05/03/24 20:41 Temperature Pulse Rate 105 H 109 H 92 Respiratory Rate 30 H 25 H 28 H Blood Pressure 148/119 H 142/81 H Pulse Oximetry 95 91 88 L Oxygen Delivery Oxygen Flow Rate Fraction of Inspired Oxygen 05/03/24 20:55 05/03/24 21:16 05/03/24 21:30 Temperature Pulse Rate 105 H 115 H 120 H Respiratory Rate 19 26 H 28 H Blood Pressure Pulse Oximetry 99 99 Oxygen Delivery Oxygen Flow Rate Fraction of Inspired Oxygen 05/03/24 21:30 05/03/24 21:45 05/03/24 21:50 Temperature Pulse Rate 117 H 103 H Respiratory Rate 16 26 H 19 Blood Pressure Pulse Oximetry 98 100 Oxygen Delivery BiPAP Oxygen Flow Rate Fraction of Inspired Oxygen 05/03/24 22:00 05/03/24 23:00 05/03/24 23:01 Temperature Pulse Rate 109 H 108 H Respiratory Rate 43 H 23 H Blood Pressure 142/82 H 142/80 H Pulse Oximetry 100 98 Oxygen Delivery BiPAP Oxygen Flow Rate Fraction of Inspired Oxygen 05/04/24 00:09 05/04/24 00:11 05/04/24 01:05 Temperature Pulse Rate 111 H 111 H Respiratory Rate 27 H 25 H Blood Pressure 144/86 H 144/86 H Pulse Oximetry 100 99 Oxygen Delivery BiPAP Oxygen Flow Rate Fraction of Inspired Oxygen 05/04/24 02:20 05/04/24 02:20 05/04/24 02:28 Temperature Pulse Rate 86 86 Respiratory Rate 26 H 26 H Blood Pressure Pulse Oximetry 98 98 Oxygen Delivery BiPAP BiPAP Oxygen Flow Rate Fraction of Inspired Oxygen 40 05/04/24 03:57 05/04/24 04:00 05/04/24 04:00 Temperature 98.4 F Pulse Rate 111 H 128 H Respiratory Rate 27 H Blood Pressure 161/91 H Pulse Oximetry 100 91 Oxygen Delivery High Flow Therapy with Na Oxygen Flow Rate 40 Fraction of Inspired Oxygen 90 05/04/24 04:00 05/04/24 05:20 05/04/24 05:30 Temperature Pulse Rate 111 H 120 H 102 H Respiratory Rate 23 H Blood Pressure 161/91 H 131/111 H Pulse Oximetry 99 Oxygen Delivery Mechanical Ventilation Oxygen Flow Rate Fraction of Inspired Oxygen 100 05/04/24 05:30 05/04/24 05:53 05/04/24 05:57 Temperature 100 F H Pulse Rate 96 114 H Respiratory Rate 26 H 24 H Blood Pressure 102/64 Pulse Oximetry 100 Oxygen Delivery Oxygen Flow Rate Fraction of Inspired Oxygen 100 05/04/24 06:00 05/04/24 06:00 05/04/24 06:00 Temperature 101 F H Pulse Rate 109 H 84 109 H Respiratory Rate 26 H Blood Pressure 89/55 L 89/55 L Pulse Oximetry 97 Oxygen Delivery Oxygen Flow Rate Fraction of Inspired Oxygen 05/04/24 06:03 05/04/24 06:15 05/04/24 06:15 Temperature 101 F H Pulse Rate 114 H 101 H 101 H Respiratory Rate 24 H 26 H 26 H Blood Pressure 93/57 L Pulse Oximetry 99 Oxygen Delivery Oxygen Flow Rate Fraction of Inspired Oxygen 05/04/24 06:30 05/04/24 06:30 05/04/24 06:45 Temperature 101 F H Pulse Rate 98 98 94 Respiratory Rate 24 H 24 H 26 H Blood Pressure 101/58 L Pulse Oximetry 98 Oxygen Delivery Oxygen Flow Rate Fraction of Inspired Oxygen 05/04/24 06:45 05/04/24 07:00 05/04/24 07:00 Temperature 101 F H Pulse Rate 94 94 94 Respiratory Rate 26 H 26 H 26 H Blood Pressure 106/66 Pulse Oximetry 98 Oxygen Delivery Oxygen Flow Rate Fraction of Inspired Oxygen 05/04/24 07:00 05/04/24 07:15 05/04/24 07:30 Temperature 101 F H 100 F H 100 F H Pulse Rate 94 89 93 Respiratory Rate 26 H 26 H 26 H Blood Pressure 101/66 115/70 107/70 Pulse Oximetry 99 98 98 Oxygen Delivery Oxygen Flow Rate Fraction of Inspired Oxygen 05/04/24 07:35 05/04/24 07:41 05/04/24 07:49 Temperature Pulse Rate 85 82 87 Respiratory Rate 26 H 26 H Blood Pressure Pulse Oximetry 99 Oxygen Delivery Mechanical Ventilation Oxygen Flow Rate Fraction of Inspired Oxygen 100 05/04/24 08:00 05/04/24 08:00 05/04/24 08:00 Temperature 100.2 F H Pulse Rate 87 84 84 Respiratory Rate 26 H 26 H 26 H Blood Pressure 77/68 L Pulse Oximetry 96 Oxygen Delivery Oxygen Flow Rate Fraction of Inspired Oxygen 05/04/24 08:00 05/04/24 08:36 05/04/24 09:00 Temperature Pulse Rate 84 89 87 Respiratory Rate 26 H Blood Pressure Pulse Oximetry 96 Oxygen Delivery Mechanical Ventilation Oxygen Flow Rate Fraction of Inspired Oxygen 60 05/04/24 09:06 05/04/24 10:00 05/04/24 10:00 Temperature Pulse Rate 89 84 91 Respiratory Rate 26 H Blood Pressure 94/73 L Pulse Oximetry Oxygen Delivery Oxygen Flow Rate Fraction of Inspired Oxygen 05/04/24 10:00 05/04/24 11:25 05/04/24 12:00 Temperature 99.3 F Pulse Rate 91 82 87 Respiratory Rate 26 H 26 H Blood Pressure 116/66 Pulse Oximetry 100 100 Oxygen Delivery Mechanical Ventilation Oxygen Flow Rate Fraction of Inspired Oxygen 60 Exam 2 Narrative: General: Intubated and sedated, in no acute distress HEENT:? Right pupil is reactive, left periorbital hematoma, ecchymosis and swelling, unable to pry open the eye, ETT in place Neck:? Supple Respiratory:? Coarse breath sounds bilaterally, rales right > left. No wheezing, adequate air entry Cardiac:? Irregularly irregular, rate controlled Abdomen:? Soft, nontender, obese, hypoactive bowel sounds Extremities:? Bilateral lower extremity edema, palpable pedal pulses Neuro:? Patient is intubated, sedated, opens eyes and follows simple commands in all extremities Skin:? Orestes skin, dry, erythematous, not warm. Psych:? Unable to assess at this time Results Labs 05/04/24 05:05 05/04/24 05:05 Labs: Short CBC 05/03/24 05/04/24 Range/Units 15:44 05:05 WBC 7.3 14.6 H (4.5-10.0) K/mm3 Hgb 14.0 12.5 (12.0-15.0) g/dL Hct 44.8 42.1 (37.0-47.0) % Plt Count 223 168 (150-375) k/mm3 BMP 05/03/24 05/04/24 05/04/24 15:44 05:05 05:05 Sodium 133 L 134 L Potassium 4.6 4.2 Chloride 98 102 Carbon Dioxide 24 25 BUN 19 H 23 H Creatinine 0.70 0.80 0.80 Glucose 293 H 223 H Calcium 9.2 8.7 Liver Function 05/03/24 05/04/24 Range/Units 15:44 05:05 Total Bilirubin 0.7 0.6 (0.2-1.3) mg/dL AST 30 30 (14-36) U/L ALT 35 31 (6-35) U/L Alkaline Phosphatase 119 89 (38-126) U/L Albumin 3.8 3.0 L (3.5-5.1) g/dL Urine 05/03/24 Range/Units 15:48 Urine Color Dark yellow (Yellow) Urine Appearance Clear (Clear) Urine pH 5.5 (5.0-9.0) Ur Specific [place] 1.033 (1.001-1.035) Urine Protein 4+ H (Negative) mg/dL Urine Glucose (UA) 3+ H (Negative) mg/dL Quality VTE Prophylaxis VTE prophylaxis: pharmacologic ordered Hospitalist MIPS Advance Care Plan I have confirmed that the patient's Advanced Care Plan is present, code status is documented, or surrogate decision maker is listed in patient medical record.: Yes Medication Reconciliation I have utilized all available resources to obtain, update and review the patients current medications (includes all prescriptions, OTC, herbals, cannabis, and nutritional supplements).: Yes
[2024-05-04] MEDS: LIDOCAINE 1% PF INJ 5 ML VIAL INFILTRATE (13:20)
[2024-05-04 17:12] LABS: Partial Thromboplastin Time 163.4 Seconds (22.3-36.8)
[2024-05-04 18:29] LABS: Glucose Point of Care 294 mg/dl (65-105)
[2024-05-04] MEDS: LEVALBUTEROL NEB 1.25 MG/3 ML INHALATION (19:49)
[2024-05-04] MEDS: IPRATROPIUM BR 0.02% INH SOLN 0.5 MG/2.5 ML VIAL INHALATION (19:49)
--- NOTE | 2024-05-04 19:58 | PC.NURSE ---
Updated Dr. kwan regarding current HR, pause Britt Barnesip at this time.
[2024-05-04] MEDS: INSULIN GLARGINE (*BKC) 100 UNITS/ML 20 UNITS SUB-Q (20:33)
[2024-05-04] MEDS: CENTRAL LINE FLUSH 10 ML IV PUSH (20:33)
[2024-05-04 23:21] LABS: Glucose Point of Care 315 mg/dl (65-105)
[2024-05-04 23:29] LABS: Partial Thromboplastin Time 97.3 Seconds (22.3-36.8)
[2024-05-05] VITALS (36 sets, daily range): BP systolic 129–165; BP diastolic 80–115; PULSE 60–93; RESP 24–29; TEMP 36.1–37.1; O2SAT 95–100
[2024-05-05] MEDS: IPRATROPIUM BR 0.02% INH SOLN 0.5 MG/2.5 ML VIAL INHALATION ×4 (02:43→20:51)
[2024-05-05] MEDS: LEVALBUTEROL NEB 1.25 MG/3 ML INHALATION ×4 (02:43→20:51)
[2024-05-05] MEDS: FENTANYL 2,500MCG/NS250ML(*CRX 2,500 MCG/250 ML BAG 10 MCG IV CONT (04:16)
[2024-05-05] MEDS: HEPARIN SOD/D5W 100 UNITS/ML 25,000 UNITS/250 ML BAG 12 UNITS IV CONT (04:17)
[2024-05-05] MEDS: CELLULOSE OXIDIZED 2 x 3 INCH 1 PKT XX (05:05)
[2024-05-05] MEDS: AZITHROMYCIN 500 MG/NS 250 ML 500 MG/250 ML BAG 250 MG IVPB (05:06)
[2024-05-05] MEDS: methylPREDNISolone SOD SUCC 125 MG VIAL 60 MG IV PUSH ×2 (05:06→17:46)
[2024-05-05] MEDS: CENTRAL LINE FLUSH 10 ML IV PUSH ×3 (05:06→20:31)
[2024-05-05] MEDS: CEFEPIME 2 GM/NS 50 ML 2 GM/50 ML BAG IVPB ×2 (05:06→17:46)
[2024-05-05 05:18] LABS: Basophils Percent Auto 0.1 % (0.2-1.2); Hematocrit 37.1 % (37.0-47.0); Immature Granulocyte Absolute 0.06 K/mm3 (0.00-0.031); Immature Granulocyte Percent A 0.5 % (0-0.5); Lymphocytes Absolute Auto 0.46 K/mm3 (0.9-3.2); Lymphocytes Percent Auto 4.2 % (18.3-44.2); Mean Corpuscular HGB Conc 32.3 g/dl (32-36); Mean Corpuscular Hemoglobin 29.6 pg (26-34); Mean Corpuscular Volume 91.6 fl (80-100); Mean Platelet Volume 10.8 fl (7.4-10.4); Monocytes Absolute Auto 0.4 K/mm3 (0.1-0.6); Monocytes Percent Auto 3.3 % (2.6-8.5); Neutrophils Absolute Auto 10.2 K/mm3 (1.3-6.7); Neutrophils Percent Auto 91.9 % (45.5-73.1); Platelet Count Result 142 k/mm3 (150-375); Red Blood Count 4.05 M/mm3 (4.2-5.4); Red Cell Distribution Width 14.3 % (11.5-14.5); White Blood Count 11.1 K/mm3 (4.5-10.0)
[2024-05-05 05:28] LABS: Alveolar/Arterial O2 Gradient 207.8 mmHg; Base Excess ABG -3.4 mEq/l (+/-2.0); Carboxyhemoglobin 0.6 % THb (0-2.0); Fractional Inspired Oxygen 45 %; HCO3 ABG 20.8 mEq/l (22.0-26.0); Methemoglobin ABG 0.3 %THb (0-1.5); Oxygen Saturation ABG 94.8 % (95.0-100.0); Oxyhemoglobin 93.6 % THb (90.0-100.0); PCO2 ABG 34.9 mmHg (35.0-45.0); PO2 ABG 73.4 mmHg (80.0-100.0); PO2 FiO2 Ratio Arterial Blood 1.63 %; Reduced Hemoglobin 5.5 %THb (0-5.0); Total Hemoglobin 12.9 g/dL (12.0-18.0); pH ABG 7.393 (7.350-7.450)
[2024-05-05 05:29] LABS: Lactic Acid Reflex 1.2 mmol/L (0.7-2.0)
[2024-05-05 05:30] LABS: Partial Thromboplastin Time 76.2 Seconds (22.3-36.8)
[2024-05-05 05:31] LABS: Alanine Aminotransferase 28 U/L (6-35); Albumin Level 2.9 g/dL (3.5-5.1); Alkaline Phosphatase 75 U/L (38-126); Anion Gap 8 mmol/L (4-12); Aspartate Amino Transferase 29 U/L (14-36); Bilirubin,Total 0.5 mg/dL (0.2-1.3); Blood Urea Nitrogen 46 mg/dL (7-17); Calcium 8.9 mg/dL (8.4-10.2); Carbon Dioxide 24 mmol/L (22-30); Chloride 101 mmol/L (98-107); Estimated CRCL calculation 48 ml/min; Estimated Glomerular Filt Rate 38; Glucose 289 mg/dL (65-110); Magnesium 2.1 mg/dL (1.6-2.3); Phosphorus 3.6 mg/dL (2.5-4.5); Potassium 4.5 mmol/L (3.4-5.0); Sodium 133 mmol/L (137-145)
[2024-05-05 05:39] LABS: Device VENTILATOR; Modified Allen's Test Pass; Site Drawn RIGHT RADIAL
[2024-05-05 05:42] LABS: Arterial Blood Gas Vent Mode CMV; Arterial Blood Gas Ventilator rate 26 /MIN
[2024-05-05 05:43] LABS: Arterial Blood Gas PEEP 8 cmH2O; Arterial Blood Gas Tidal Volume 390 ml
[2024-05-05] MEDS: VANCOMYCIN 1,500 MG/NS 500 ML 1,500 MG/500 ML BAG 250 MG IVPB (06:05)
[2024-05-05] MEDS: INSULIN ASPART (*BKC) 100 UNITS/ML SUB-Q ×4 (06:43→23:23)
[2024-05-05 07:25] LABS: Creatine Kinase 160 U/L (30-135)
[2024-05-05] MEDS: MIDAZOLAM 100MG/NS 100ML(*CRX) 100 MG/100 ML BAG IV CONT (07:28)
[2024-05-05] MEDS: ALBUMIN HUMAN 25% 25 GM/100 ML 100 ML IVPB ×4 (07:29→23:23)
[2024-05-05 08:30] LABS: Glucose Point of Care 309 mg/dl (65-105)
[2024-05-05] MEDS: ASPIRIN 81 MG ENTERIC TABLET PO (08:33)
[2024-05-05] MEDS: PANTOPRAZOLE SODIUM IV 40 MG VIAL IV PUSH (08:33)
[2024-05-05] MEDS: MINERAL OIL/WHITE PETROLATUM OINTMENT 1 APPLIC EACH EYE ×2 (08:33→20:31)
[2024-05-05] MEDS: INSULIN GLARGINE (*BKC) 100 UNITS/ML 15 UNITS SUB-Q (08:34)
[2024-05-05] MEDS: OSELTAMIVIR PHOSPHATE 30 MG CAPSULE PO ×2 (08:40→20:30)
--- NOTE | 2024-05-05 08:43 | P.PNINT_ITS ---
Progress Note: A&P Assessment and Plan (1) Acute hypercapnic respiratory failure: Code(s): J96.02 - Acute respiratory failure with hypercapnia Status: Acute Assessment and Plan: Acute hypercapnic respiratory failure despite being on BiPAP, patient had altered mental status, hallucinations with worsening ABGs, patient is a smoker, will have packet per day for many years per daughter, no formal diagnosis of C OPD but given her hypercapnic respiratory failure, patient may have COPD and may benefit from pulmonary consult as outpatient -intubated on in the early hours of 05/04/2024 -currently on CMV mode of ventilation, peep of 8,45% FiO2, wean FiO2 to maintain O2 sats > 92% -likely related to pneumonia secondary to influenza -continue Xopenex and Atrovent nebulizer since patient had AFib RVR on admission -on azithromycin, cefepime and vancomycin (05/04) -wean Solu-Medrol for possible COPD exacerbation -continue fentanyl and Versed infusion, maintain RASS of 0 to -2, daily sedation vacation (2) Influenza: Code(s): J11.1 - Influenza due to unidentified influenza virus with other respiratory manifestations Status: Acute Assessment and Plan: Influenza A positive, continue Tamiflu (3) PNA (pneumonia): Qualifiers: Pneumonia type: due to influenza A virus Qualified Code(s): J10.00 - Influenza due to other identified influenza virus with unspecified type of pneumonia Code(s): J18.9 - Pneumonia, unspecified organism Status: Acute Assessment and Plan: Pneumonia likely related to influenza/community-acquired -continue antibiotics as above -currently on mechanical ventilation (4) UTI (urinary tract infection): Qualifiers: Urinary tract infection type: acute cystitis Hematuria presence: without hematuria Qualified Code(s): N30.00 - Acute cystitis without hematuria Code(s): N39.0 - Urinary tract infection, site not specified Status: Acute Assessment and Plan: Urinalysis reflective UTI -continue antibiotics as above -05/03: urine cultures growing E coli, sensitivities pending (5) Atrial fibrillation with RVR: Code(s): I48.91 - Unspecified atrial fibrillation Status: Acute Assessment and Plan: AFib RVR on admission, started on heparin infusion and diltiazem infusion -heart rate better controlled, patient was dropping her heart rates in the 60s with diltiazem infusion was stopped -continue to monitor -will restart home Eliquis and metoprolol and discontinue heparin infusion (6) Type 2 diabetes mellitus with hyperglycemia: Qualifiers: Diabetes mellitus terminal manager insulin use: with detention use Qualified Code(s): E11.65 - Type 2 diabetes mellitus with hyperglycemia; Z79.4 - [facility] (current) use of insulin Code(s): E11.65 - Type 2 diabetes mellitus with hyperglycemia Status: Chronic Assessment and Plan: Accu-Cheks and sliding scale insulin -hyperglycemia could be related to steroids, - increase Lantus (7) Fall: Code(s): W19.XXXA - Unspecified fall, initial encounter Status: Acute Assessment and Plan: Patient status post fall at home with contusion to the left eye CT head did not show any acute intracranial hemorrhage or suspicious mass effect, left frontal scalp hematoma without underlying fracture CT cervical spine: Straightening of the normal curvature of the cervical spine, likely muscular in origin. Degenerative disease, without acute fracture. CT chest abdomen pelvis: No acute evidence of traumatic injury Patient will require PT/OT when she is extubated (8) Essential hypertension: Code(s): I10 - Essential (primary) hypertension Status: Chronic Assessment and Plan: Patient intubated and sedated, blood pressures remained stable, -started patient on metoprolol. -hold home lisinopril since decreased urine output and increase in creatinine Plan DVT prophylaxis: Apixaban Stress ulcer prophylaxis: Protonix Nutrition: Continues tube feeds, will add MiraLax and senna Code Status: Full code Critical Care Time Spent: 34 minutes Will update family Due to a high probability of clinically significant, life threatening deterioration, the patient required my highest level of preparedness to intervene emergently and I personally spent this critical care time directly and personally managing the patient. This critical care time included obtaining a history; examining the patient; pulse oximetry; ordering and review of studies; arranging urgent treatment with development of a management plan; evaluation of patient's response to treatment; frequent reassessment; and discussions with other providers. It was exclusive of separately billable procedures and treating other patients and teaching time. Please see Assessment and Plan section and the rest of the note for further information on patient assessment and treatment This dictation may have been done utilizing a voice recognition system. Attempts have been made to correct errors. However, there may be uncorrected grammatical, spelling, and recognitions errors present. Subjective Date/time seen: 05/05/24 08:43 Interval history: Reason for consult: Acute hypercapnic respiratory failure, fall, contusion to left eye, fatigue, shortness of breath, generalized weakness, influenza A positive 05/05/2024: Patient seen and examined the ICU, remains intubated on CMV mode of ventilation, peep of 8, 45% FiO2. Sedated with fentanyl and Versed infusion, does not open eyes or follow simple commands. Hemodynamically stable, low urine output with worsening renal function. Platelets us within normal limits been trending down. Patient is off Cardizem infusion, remains in AFib, rate controlled. Afebrile Review of Systems Review of Systems: ROS unobtainable: Yes unobtainable due to endotracheal tube and unobtainable due to medical condition Exam Narrative: General: Intubated and sedated, in no acute distress HEENT:? Right pupil is reactive, left periorbital hematoma, ecchymosis and swelling, unable to pry open the eye, ETT in place Neck:? Supple Respiratory:? Coarse breath sounds bilaterally, rales right > left. No wheezing, adequate air entry Cardiac:? Irregularly irregular, rate controlled Abdomen:? Soft, nontender, obese, hypoactive bowel sounds Extremities:? Bilateral lower extremity edema, palpable pedal pulses Neuro:? Patient is intubated, sedated, opens eyes and follows simple commands in all extremities Skin:? Richardson skin, dry, erythematous, not warm. Psych:? Unable to assess at this time Objective Data Vital Signs Vital Signs: Vital Signs - 24 hr 05/04/24 09:00 05/04/24 09:06 05/04/24 10:00 Temperature Pulse Rate 87 89 84 Respiratory Rate 26 H Blood Pressure 94/73 L Pulse Oximetry Oxygen Delivery Fraction of Inspired Oxygen 05/04/24 10:00 05/04/24 10:00 05/04/24 11:25 Temperature Pulse Rate 91 91 82 Respiratory Rate 26 H 26 H Blood Pressure Pulse Oximetry 100 Oxygen Delivery Mechanical Ventilation Fraction of Inspired Oxygen 60 05/04/24 12:00 05/04/24 12:00 05/04/24 12:00 Temperature 99.3 F Pulse Rate 87 89 89 Respiratory Rate 26 H 26 H Blood Pressure 116/66 Pulse Oximetry 100 100 Oxygen Delivery Mechanical Ventilation Fraction of Inspired Oxygen 60 05/04/24 12:00 05/04/24 12:00 05/04/24 12:00 Temperature Pulse Rate 89 89 Respiratory Rate 26 H 26 H Blood Pressure Pulse Oximetry Oxygen Delivery Fraction of Inspired Oxygen 60 05/04/24 13:52 05/04/24 13:56 05/04/24 14:00 Temperature Pulse Rate 64 64 79 Respiratory Rate 26 H 26 H Blood Pressure Pulse Oximetry 98 Oxygen Delivery Mechanical Ventilation Fraction of Inspired Oxygen 60 05/04/24 14:00 05/04/24 14:00 05/04/24 14:08 Temperature Pulse Rate 78 78 79 Respiratory Rate 26 H 26 H Blood Pressure Pulse Oximetry Oxygen Delivery Fraction of Inspired Oxygen 05/04/24 16:00 05/04/24 16:00 05/04/24 16:00 Temperature Pulse Rate 65 67 67 Respiratory Rate 26 H 26 H 26 H Blood Pressure Pulse Oximetry 95 Oxygen Delivery Mechanical Ventilation Fraction of Inspired Oxygen 60 05/04/24 16:00 05/04/24 16:00 05/04/24 16:00 Temperature 99.6 F Pulse Rate 67 67 Respiratory Rate 26 H Blood Pressure 116/74 Pulse Oximetry 95 Oxygen Delivery Fraction of Inspired Oxygen 60 05/04/24 17:13 05/04/24 18:00 05/04/24 18:00 Temperature Pulse Rate 67 67 60 Respiratory Rate 26 H Blood Pressure Pulse Oximetry 98 Oxygen Delivery Mechanical Ventilation Fraction of Inspired Oxygen 60 05/04/24 18:00 05/04/24 18:26 05/04/24 18:26 Temperature Pulse Rate 60 57 L 57 L Respiratory Rate 26 H Blood Pressure 116/71 116/71 Pulse Oximetry Oxygen Delivery Fraction of Inspired Oxygen 05/04/24 19:00 05/04/24 19:50 05/04/24 19:57 Temperature Pulse Rate 60 63 63 Respiratory Rate 26 H Blood Pressure Pulse Oximetry 97 Oxygen Delivery Mechanical Ventilation Fraction of Inspired Oxygen 60 05/04/24 20:00 05/04/24 20:00 05/04/24 20:00 Temperature Pulse Rate 56 L 58 L Respiratory Rate Blood Pressure 117/78 Pulse Oximetry Oxygen Delivery Fraction of Inspired Oxygen 60 05/04/24 20:00 05/04/24 20:00 05/04/24 20:00 Temperature 98.9 F Pulse Rate 58 L 63 58 L Respiratory Rate 26 H 26 H 26 H Blood Pressure 117/78 Pulse Oximetry 96 96 Oxygen Delivery Mechanical Ventilation Fraction of Inspired Oxygen 60 05/04/24 20:00 05/04/24 20:10 05/04/24 21:00 Temperature Pulse Rate 58 L 63 59 L Respiratory Rate 26 H 26 H Blood Pressure Pulse Oximetry Oxygen Delivery Fraction of Inspired Oxygen 05/04/24 22:00 05/04/24 22:00 05/04/24 22:00 Temperature Pulse Rate 60 59 L 61 Respiratory Rate 26 H 26 H Blood Pressure Pulse Oximetry Oxygen Delivery Fraction of Inspired Oxygen 05/04/24 22:00 05/04/24 23:37 05/04/24 23:41 Temperature Pulse Rate 65 60 Respiratory Rate 26 H Blood Pressure Pulse Oximetry 95 Oxygen Delivery Mechanical Ventilation Fraction of Inspired Oxygen 60 60 05/04/24 23:51 05/05/24 00:00 05/05/24 00:00 Temperature 98.1 F Pulse Rate 63 68 68 Respiratory Rate 26 H Blood Pressure 138/115 H Pulse Oximetry 97 97 Oxygen Delivery Mechanical Ventilation Fraction of Inspired Oxygen 60 05/05/24 00:01 05/05/24 00:01 05/05/24 00:01 Temperature Pulse Rate 72 68 64 Respiratory Rate 26 H 26 H Blood Pressure Pulse Oximetry Oxygen Delivery Fraction of Inspired Oxygen 05/05/24 01:01 05/05/24 02:00 05/05/24 02:00 Temperature Pulse Rate 71 63 73 Respiratory Rate 26 H Blood Pressure 129/80 Pulse Oximetry Oxygen Delivery Fraction of Inspired Oxygen 05/05/24 02:00 05/05/24 02:45 05/05/24 02:48 Temperature Pulse Rate 73 65 65 Respiratory Rate 26 H 26 H Blood Pressure Pulse Oximetry 96 Oxygen Delivery Mechanical Ventilation Fraction of Inspired Oxygen 60 05/05/24 03:34 05/05/24 03:35 05/05/24 04:00 Temperature Pulse Rate 65 60 Respiratory Rate 26 H Blood Pressure Pulse Oximetry 96 Oxygen Delivery Mechanical Ventilation Fraction of Inspired Oxygen 45 45 05/05/24 04:00 05/05/24 04:00 05/05/24 04:16 Temperature 97.0 F L Pulse Rate 60 61 64 Respiratory Rate 26 H 26 H 26 H Blood Pressure 139/80 Pulse Oximetry 97 Oxygen Delivery Fraction of Inspired Oxygen 05/05/24 04:16 05/05/24 04:37 05/05/24 04:55 Temperature Pulse Rate 64 60 62 Respiratory Rate 26 H Blood Pressure Pulse Oximetry 98 Oxygen Delivery Mechanical Ventilation Fraction of Inspired Oxygen 45 05/05/24 06:00 05/05/24 06:00 05/05/24 06:00 Temperature Pulse Rate 61 61 63 Respiratory Rate 26 H 26 H Blood Pressure Pulse Oximetry Oxygen Delivery Fraction of Inspired Oxygen 05/05/24 07:28 05/05/24 07:28 05/05/24 07:57 Temperature Pulse Rate 66 66 69 Respiratory Rate 26 H 26 H Blood Pressure Pulse Oximetry 95 Oxygen Delivery Mechanical Ventilation Fraction of Inspired Oxygen 45 05/05/24 08:11 Temperature Pulse Rate 69 Respiratory Rate 26 H Blood Pressure Pulse Oximetry Oxygen Delivery Fraction of Inspired Oxygen Intake/Output Intake/Output: Intake & Output 05/02/24 05/03/24 05/04/24 05/05/24 23:59 23:59 23:59 23:59 Intake Total 5986.6 1050.1 Output Total 150 175 Balance 5836.6 875.1 Meds/Results Medications: Active Medications Generic Name Dose Route Start Last Admin Trade Name Freq PRN Reason Stop Dose Admin Acetaminophen 650 mg 05/03/24 22:58 Acetaminophen 325 Mg Tablet PO Q6H PRN Mild Pain (1-3) or Fever Aspirin 81 mg 05/04/24 09:00 05/05/24 08:33 Aspirin 81 Mg Enteric Tablet PO 81 mg DAILY JR Administration Benzocaine 1 lozenge 05/03/24 22:58 Benzocaine/Menthol (*Bkc) 18 Ea Lozenge PO PRN PRN Sore Throat Benzonatate 100 mg 05/03/24 22:58 Benzonatate 100 Mg Capsule PO TID PRN Cough Dextrose 12.5 gm 05/03/24 23:00 Dextrose 50% 25 Gm/50 Ml Syringe IV PUSH PRN PRN Hypoglycemia Protocol Glucagon 1 mg 05/03/24 23:00 Glucagon For Inj 1 Mg Vial IM PRN PRN Hypoglycemia Protocol Glucose 15 gm 05/03/24 23:00 Glucose Oral Gel 15 Gm Of Glucse In 37.5 Gm Tube PO PRN PRN Hypoglycemia Protocol Heparin Sodium (Porcine) 7,000 units 05/04/24 05:06 Heparin Sodium 5,000 Units/Ml Vial IV PUSH PRN PRN aPTT less than 55 seconds Heparin Sodium (Porcine) 3,500 units 05/04/24 05:06 Heparin Sodium 5,000 Units/Ml Vial IV PUSH PRN PRN aPTT 55 - 70 seconds Dextrose 1,000 mls @ 100 mls/hr 05/03/24 23:00 Dextrose 5% 1,000 Ml IVPB PRN PRN Hypoglycemia Protocol Heparin Sodium/Dextrose 25,000 units in 250 mls @ 12 mls/hr 05/04/24 05:10 05/05/24 06:00 Heparin Sodium/D5w 100 Units/Ml IV CONT 1,200 units/hr .[id number] JR 12 mls/hr Titration Protocol 1,200 UNITS/HR Fentanyl Citrate 2,500 mcg in 250 mls @ 5 mls/hr 05/04/24 05:15 05/05/24 06:00 Fentanyl 2,500 Mcg/Ns 250 Ml IV CONT 100 mcg/hr .Q50H JR 10 mls/hr Titration Protocol 50 MCG/HR Midazolam HCl 100 mg in 100 mls @ 4 mls/hr 05/04/24 05:15 05/05/24 07:28 Versed 100 Mg/Ns 100 Ml IV CONT 4 mg/hr .Q25H JR 4 mls/hr Administration Protocol 4 MG/HR Azithromycin 500 mg in 250 mls @ 250 mls/hr 05/04/24 07:00 05/05/24 06:06 Zithromax IVPB Infused Q24H JR Infusion Diltiazem HCl 100 mg in 100 mls @ 0 mls/hr 05/04/24 08:35 05/05/24 04:37 Cardizem 100 Mg/100 Ml IV CONT Infused .Q0M JR Titration Protocol 0 MG/HR Vancomycin HCl 1,500 mg in 500 mls @ 250 mls/hr 05/05/24 07:00 05/05/24 06:05 Vancomycin 1,500 Mg/Ns 500 Ml IVPB 05/05/24 09:00 250 mls/hr Q18H JR Administration Albumin Human 100 mls @ 60 mls/hr 05/05/24 07:10 05/05/24 07:29 Albutein IVPB 60 mls/hr Q6HR JR Administration Vancomycin HCl 1,500 mg in 500 mls @ 250 mls/hr 05/06/24 05:00 Vancomycin 1,500 Mg/Ns 500 Ml IVPB Q24H JR Cefepime HCl 2 gm in 50 mls @ 100 mls/hr 05/05/24 18:00 Maxipime 2 Gm/Ns 50 Ml IVPB Q12H [facility] Insulin Aspart 3 - 6 units 05/04/24 06:00 05/05/24 06:43 Insulin Aspart (*Bkc) 100 Units/Ml SUB-Q 4 units Q6HR JR Administration Protocol Insulin Glargine 35 units 05/05/24 21:00 Insulin Glargine (*Bkc) 100 Units/Ml SUB-Q HS JR Ipratropium [place]ion 0.5 mg 05/04/24 14:00 05/05/24 07:56 Ipratropium Br 0.02% Inh Soln 0.5 Mg/2.5 Ml Vial INHALATION 0.5 mg Q6HRT JR Administration Levalbuterol HCl 1.25 mg 05/04/24 14:00 05/05/24 07:57 Levalbuterol Neb 1.25 Mg/3 Ml INHALATION 1.25 mg Q6HRT [facility] Administration Methylprednisolone Sodium Succinate 60 mg 05/04/24 00:00 05/05/24 05:06 Methylprednisolone Sod Succ 125 Mg Vial IV PUSH 60 mg Q6HR JR Administration Midazolam HCl 2 mg 05/04/24 05:14 05/04/24 05:56 Midazolam Hcl (*Crx) 2 Mg/2 Ml Vial IV PUSH 2 mg Q5M PRN Administration ventilator asynchrony Multi-Ingred Cream/Lotion/Oil/Oint 1 applic 05/04/24 09:00 05/05/24 08:33 Mineral Oil/White Petrolatum Ointment EACH EYE 1 applic Q12HR JR Administration Ondansetron HCl 4 mg 05/04/24 03:23 05/04/24 03:38 Ondansetron Inj 4 Mg/2 Ml Vial IV PUSH 4 mg Q6H PRN Administration Nausea And Vomiting Oseltamivir Phosphate 30 mg 05/05/24 09:00 05/05/24 08:40 Oseltamivir Phosphate 30 Mg Capsule PO 05/08/24 09:01 30 mg Q12HR JR Administration Pantoprazole Sodium 40 mg 05/04/24 09:00 05/05/24 08:33 Pantoprazole Sodium Iv 40 Mg Vial IV PUSH 40 mg DAILY JR Administration Sodium Chloride 10 ml 05/04/24 22:00 05/05/24 05:06 Central Line Flush IV PUSH 10 ml Q8HR JR Administration Sodium Chloride 10 ml 05/04/24 14:16 Central Line Flush IV PUSH PRN PRN with TPN bag changes Sodium Chloride 20 ml 05/04/24 14:16 Central Line Flush IV PUSH PRN PRN after blood draws Radiology Results: ITS Impressions Head CT 05/03/24 19:02 Impression: No acute intracranial hemorrhage or suspicious mass effect. Left frontal scalp hematoma without underlying fracture. Cervical Spine CT 05/03/24 19:08 Impression: Straightening of the normal curvature of the cervical spine, likely muscular in origin. Degenerative disease, without acute fracture. Chest/Abdomen/Pelvis CT 05/03/24 19:11 IMPRESSION: No cross-sectional imaging evidence of acute traumatic injury. Innumerable nonacute findings, as detailed above. Abdomen X-Ray 05/04/24 06:38 Impression: NG tube in satisfactory position. Chest X-Ray 05/05/24 06:59 Impression: Mild to moderate probable pulmonary edema pattern with left basilar atelectasis and small left pleural effusion. Correlate clinically for pneumonia. Support tubes, as above. Renal Ultrasound 05/05/24 08:23 IMPRESSION: 1. Normal kidneys. No hydronephrosis. Labs Labs: Laboratory Results - last 24 hr 05/04/24 05/04/24 05/04/24 05:05 08:11 11:40 WBC 14.6 H RBC 4.35 Hgb 12.5 Hct 42.1 MCV 96.8 MCH 28.7 MCHC 29.7 L RDW 14.0 Plt Count 168 MPV 10.2 Immature Gran % (Auto) Not Reportable Neut % (Auto) Not Reportable Lymph % (Auto) Not Reportable [place] % (Auto) Not Reportable Eos % (Auto) Not Reportable Baso % (Auto) Not Reportable Lymph # (Auto) Not Reportable [place] # (Auto) Not Reportable Eos # (Auto) Not Reportable Baso # (Auto) Not Reportable Abs Immat Gran (auto) Not Reportable Absolute Neuts (auto) Not Reportable Absolute Nucleated RBC Not Reportable Total Counted 100 Neutrophils % (Manual) 80 H Band Neutrophils % 14 H Lymphocytes % (Manual) 1.0 L Monocytes % (Manual) 4 Eosinophils % (Manual) 1 Nucleated RBC % Not Reportable Abs Neuts (Manual) 13.72 H Abs Lymphs (Manual) 0.14 L Abs Monocytes (Manual) 0.58 Absolute Eos (Manual) 0.14 Platelet Estimate Adequate Schistocytes None seen APTT Puncture Site ABG pH ABG pCO2 ABG pO2 ABG PO2/FiO2 Ratio ABG HCO3 ABG O2 Saturation ABG O2 Content ABG Base Excess A-a Gradient Oxyhemoglobin Carboxyhemoglobin Methemoglobin Reduced Hemoglobin Total Hemoglobin O2 Delivery Device O2 Liters/Min Minute Volume Vent Rate Vent Mode FiO2 Tidal Volume PEEP Peak Inspir Pressure Pressure Support Sodium Potassium Chloride Carbon Dioxide Anion Gap BUN Creatinine Estim Creat Clear Calc Estimated GFR Glucose POC Capillary Glucose 271 H Lactic Acid Calcium Phosphorus Magnesium Total Bilirubin AST ALT Alkaline Phosphatase Total Creatine Kinase Total Protein Albumin Nasal MRSA (PCR) Not detected 05/04/24 05/04/24 05/04/24 11:51 16:41 18:26 WBC RBC Hgb Hct MCV MCH MCHC RDW Plt Count MPV Immature Gran % (Auto) Neut % (Auto) Lymph % (Auto) [place] % (Auto) Eos % (Auto) Baso % (Auto) Lymph # (Auto) [place] # (Auto) Eos # (Auto) Baso # (Auto) Abs Immat Gran (auto) Absolute Neuts (auto) Absolute Nucleated RBC Total Counted Neutrophils % (Manual) Band Neutrophils % Lymphocytes % (Manual) Monocytes % (Manual) Eosinophils % (Manual) Nucleated RBC % Abs Neuts (Manual) Abs Lymphs (Manual) Abs Monocytes (Manual) Absolute Eos (Manual) Platelet Estimate Schistocytes APTT 163.4 H* Puncture Site Right radial ABG pH 7.344 L ABG pCO2 43.0 ABG pO2 80.4 ABG PO2/FiO2 Ratio 1.34 ABG HCO3 22.9 ABG O2 Saturation 95.3 ABG O2 Content 17.1 ABG Base Excess -2.8 A-a Gradient 300.1 Oxyhemoglobin 95.2 Carboxyhemoglobin Methemoglobin Reduced Hemoglobin Total Hemoglobin 12.7 O2 Delivery Device Ventilator O2 Liters/Min Not Reportable Minute Volume Not Reportable Vent Rate 26 Vent Mode Cmv FiO2 60 Tidal Volume 390 PEEP 8 Peak Inspir Pressure Not Reportable Pressure Support Not Reportable Sodium Potassium Chloride Carbon Dioxide Anion Gap BUN Creatinine Estim Creat Clear Calc Estimated GFR Glucose POC Capillary Glucose 294 H Lactic Acid Calcium Phosphorus Magnesium Total Bilirubin AST ALT Alkaline Phosphatase Total Creatine Kinase Total Protein Albumin Nasal MRSA (PCR) 05/04/24 05/04/24 05/05/24 23:04 23:11 05:04 WBC 11.1 H RBC 4.05 L Hgb 12.0 Hct 37.1 MCV 91.6 D MCH 29.6 MCHC 32.3 RDW 14.3 Plt Count 142 L MPV 10.8 H Immature Gran % (Auto) 0.5 Neut % (Auto) 91.9 H Lymph % (Auto) 4.2 L [place] % (Auto) 3.3 Eos % (Auto) 0.0 Baso % (Auto) 0.1 L Lymph # (Auto) 0.46 L [place] # (Auto) 0.4 Eos # (Auto) 0.0 Baso # (Auto) 0.0 Abs Immat Gran (auto) 0.06 H Absolute Neuts (auto) 10.2 H Absolute Nucleated RBC 0.000 Total Counted Neutrophils % (Manual) Band Neutrophils % Lymphocytes % (Manual) Monocytes % (Manual) Eosinophils % (Manual) Nucleated RBC % 0.0 Abs Neuts (Manual) Abs Lymphs (Manual) Abs Monocytes (Manual) Absolute Eos (Manual) Platelet Estimate Schistocytes APTT 97.3 H 76.2 H Puncture Site ABG pH ABG pCO2 ABG pO2 ABG PO2/FiO2 Ratio ABG HCO3 ABG O2 Saturation ABG O2 Content ABG Base Excess A-a Gradient Oxyhemoglobin Carboxyhemoglobin Methemoglobin Reduced Hemoglobin Total Hemoglobin O2 Delivery Device O2 Liters/Min Minute Volume Vent Rate Vent Mode FiO2 Tidal Volume PEEP Peak Inspir Pressure Pressure Support Sodium 133 L Potassium 4.5 Chloride 101 Carbon Dioxide 24 Anion Gap 8 BUN 46 H D Creatinine 1.36 H Estim Creat Clear Calc 48 Estimated GFR 38 L Glucose 289 H POC Capillary Glucose 315 H Lactic Acid 1.2 Calcium 8.9 Phosphorus 3.6 Magnesium 2.1 Total Bilirubin 0.5 AST 29 ALT 28 Alkaline Phosphatase 75 Total Creatine Kinase 160 H Total Protein 7.0 Albumin 2.9 L Nasal MRSA (PCR) 05/05/24 05/05/24 05:12 08:29 WBC RBC Hgb Hct MCV MCH MCHC RDW Plt Count MPV Immature Gran % (Auto) Neut % (Auto) Lymph % (Auto) [place] % (Auto) Eos % (Auto) Baso % (Auto) Lymph # (Auto) [place] # (Auto) Eos # (Auto) Baso # (Auto) Abs Immat Gran (auto) Absolute Neuts (auto) Absolute Nucleated RBC Total Counted Neutrophils % (Manual) Band Neutrophils % Lymphocytes % (Manual) Monocytes % (Manual) Eosinophils % (Manual) Nucleated RBC % Abs Neuts (Manual) Abs Lymphs (Manual) Abs Monocytes (Manual) Absolute Eos (Manual) Platelet Estimate Schistocytes APTT Puncture Site Right radial ABG pH 7.393 ABG pCO2 34.9 L ABG pO2 73.4 L ABG PO2/FiO2 Ratio 1.63 ABG HCO3 20.8 L ABG O2 Saturation 94.8 L ABG O2 Content 17.0 ABG Base Excess -3.4 A-a Gradient 207.8 Oxyhemoglobin 93.6 Carboxyhemoglobin 0.6 Methemoglobin 0.3 Reduced Hemoglobin 5.5 H Total Hemoglobin 12.9 O2 Delivery Device Ventilator O2 Liters/Min Not Reportable Minute Volume Not Reportable Vent Rate 26 Vent Mode Cmv FiO2 45 Tidal Volume 390 PEEP 8 Peak Inspir Pressure Not Reportable Pressure Support Not Reportable Sodium Potassium Chloride Carbon Dioxide Anion Gap BUN Creatinine Estim Creat Clear Calc Estimated GFR Glucose POC Capillary Glucose 309 H Lactic Acid Calcium Phosphorus Magnesium Total Bilirubin AST ALT Alkaline Phosphatase Total Creatine Kinase Total Protein Albumin Nasal MRSA (PCR) Quality VTE Prophylaxis VTE prophylaxis: pharmacologic ordered
[2024-05-05] MEDS: polyethylene glycoL 3350 17 GM POWD.PACK PO (09:18)
[2024-05-05] MEDS: METOPROLOL TARTRATE 25 MG TABLET PO ×2 (09:18→20:30)
[2024-05-05] MEDS: APIXABAN 5 MG TABLET PO ×2 (09:18→20:30)
[2024-05-05 09:41] LABS: Creatinine Urine 161.4 mg/dL
[2024-05-05 09:43] LABS: Potassium Urine Random 67.5 meq/L
[2024-05-05 09:44] LABS: Sodium Urine Random < 5 meq/L
--- NOTE | 2024-05-05 11:02 | PCNFU ---
Nutrition Follow-Up Complete: Suboptimal Energy Intake as related to mechanical ventilation as evidenced by NPO. Goal: Meet estimated nutritional needs. Patient is progress towards goal. We will continue current goal. Pt current nutrition is Vital AF 1.2 at 50 ml/hr. Last recorded weight is 140.2 kg, up from 138.5 kg on admit. Bowel Motility: +BM reported 2/5 Labs Reviewed: Glu 289, Cr 1.36, BUN 46, Na 133, Alb 2.9 Meds Noted:Lantus, Miralax, Versed, Fentanyl Skin: WNL Additional Notes: Patient remains on mechanical vent. Tube feedings are being tolerated of Vital AF 1.2 at 50 ml/hr. Total Nutrition: 1584 kcal/99 gm protein/1071 ml water. Flush 30 ml q 4 hours. Agree with diet orders. Will monitor weight, labs, skin, diet orders, meds every Wednesday and Wednesday.
[2024-05-05 11:06] LABS: Eosinophil Urine None Seen % (None Seen); Urine Eos QC 2nd Tech Confirmed
[2024-05-05 12:12] LABS: Glucose Point of Care 273 mg/dl (65-105)
[2024-05-05 18:05] LABS: Glucose Point of Care 345 mg/dl (65-105)
[2024-05-05] MEDS: INSULIN GLARGINE (*BKC) 100 UNITS/ML 35 UNITS SUB-Q (20:30)
[2024-05-05] MEDS: SENNA/DOCUSATE SODIUM TABLET 1 TAB PO (20:30)
[2024-05-05 23:36] LABS: Glucose Point of Care 319 mg/dl (65-105)
[2024-05-06] VITALS (36 sets, daily range): BP systolic 129–171; BP diastolic 70–101; PULSE 60–777; RESP 20–26; TEMP 36.9–37.4; O2SAT 94–97
[2024-05-06] MEDS: FENTANYL 2,500MCG/NS250ML(*CRX 2,500 MCG/250 ML BAG 15 MCG IV CONT ×2 (02:08→20:51)
[2024-05-06] MEDS: IPRATROPIUM BR 0.02% INH SOLN 0.5 MG/2.5 ML VIAL INHALATION ×4 (02:12→21:17)
[2024-05-06] MEDS: LEVALBUTEROL NEB 1.25 MG/3 ML INHALATION ×4 (02:12→21:17)
[2024-05-06] MEDS: MIDAZOLAM 100MG/NS 100ML(*CRX) 100 MG/100 ML BAG IV CONT (03:46)
[2024-05-06 05:15] LABS: Alveolar/Arterial O2 Gradient 173.5 mmHg; Base Excess ABG 0.9 mEq/l (+/-2.0); Carboxyhemoglobin 0.4 % THb (0-2.0); Fractional Inspired Oxygen 40 %; HCO3 ABG 23.7 mEq/l (22.0-26.0); Methemoglobin ABG 0.3 %THb (0-1.5); Oxygen Content ABG 17.4 %vol (16.0-22.0); Oxygen Saturation ABG 96.1 % (95.0-100.0); Oxyhemoglobin 94.8 % THb (90.0-100.0); PCO2 ABG 32.1 mmHg (35.0-45.0); PO2 ABG 74.8 mmHg (80.0-100.0); PO2 FiO2 Ratio Arterial Blood 1.87 %; Reduced Hemoglobin 4.5 %THb (0-5.0); pH ABG 7.486 (7.350-7.450)
[2024-05-06 05:16] LABS: Arterial Blood Gas PEEP 10 cmH2O; Arterial Blood Gas Tidal Volume 390 ml; Arterial Blood Gas Vent Mode CMV; Arterial Blood Gas Ventilator rate 24 /MIN; Device VENTILATOR; Modified Allen's Test Pass; Site Drawn RIGHT RADIAL
[2024-05-06] MEDS: CEFEPIME 2 GM/NS 50 ML 2 GM/50 ML BAG IVPB ×2 (05:28→17:26)
[2024-05-06] MEDS: AZITHROMYCIN 500 MG/NS 250 ML 500 MG/250 ML BAG 250 MG IVPB (05:28)
[2024-05-06] MEDS: CENTRAL LINE FLUSH 10 ML IV PUSH ×3 (05:29→20:45)
[2024-05-06] MEDS: methylPREDNISolone SOD SUCC 125 MG VIAL 60 MG IV PUSH (05:29)
[2024-05-06 05:58] LABS: Basophils Percent Auto 0.1 % (0.2-1.2); Hematocrit 37.1 % (37.0-47.0); Hemoglobin 11.9 g/dL (12.0-15.0); Immature Granulocyte Absolute 0.04 K/mm3 (0.00-0.031); Immature Granulocyte Percent A 0.5 % (0-0.5); Lymphocytes Absolute Auto 0.51 K/mm3 (0.9-3.2); Mean Corpuscular HGB Conc 32.1 g/dl (32-36); Mean Corpuscular Hemoglobin 28.8 pg (26-34); Mean Corpuscular Volume 89.8 fl (80-100); Mean Platelet Volume 11.5 fl (7.4-10.4); Monocytes Absolute Auto 0.5 K/mm3 (0.1-0.6); Monocytes Percent Auto 5.9 % (2.6-8.5); Neutrophils Absolute Auto 7.5 K/mm3 (1.3-6.7); Neutrophils Percent Auto 87.5 % (45.5-73.1); Platelet Count Result 128 k/mm3 (150-375); Red Blood Count 4.13 M/mm3 (4.2-5.4); Red Cell Distribution Width 14.4 % (11.5-14.5); White Blood Count 8.5 K/mm3 (4.5-10.0)
[2024-05-06 06:01] LABS: Lactic Acid Reflex 1.4 mmol/L (0.7-2.0)
[2024-05-06 06:09] LABS: Alanine Aminotransferase 23 U/L (6-35); Albumin Level 3.5 g/dL (3.5-5.1); Alkaline Phosphatase 58 U/L (38-126); Anion Gap 10 mmol/L (4-12); Aspartate Amino Transferase 18 U/L (14-36); Bilirubin,Total 0.8 mg/dL (0.2-1.3); Blood Urea Nitrogen 53 mg/dL (7-17); Calcium 9.5 mg/dL (8.4-10.2); Carbon Dioxide 24 mmol/L (22-30); Chloride 102 mmol/L (98-107); Estimated CRCL calculation 50 ml/min; Estimated Glomerular Filt Rate 40; Glucose 229 mg/dL (65-110); Magnesium 2.4 mg/dL (1.6-2.3); Phosphorus 3.1 mg/dL (2.5-4.5); Potassium 4.6 mmol/L (3.4-5.0); Sodium 136 mmol/L (137-145)
[2024-05-06] MEDS: INSULIN ASPART (*BKC) 100 UNITS/ML SUB-Q ×3 (06:26→17:33)
[2024-05-06] MEDS: ALBUMIN HUMAN 25% 25 GM/100 ML 100 ML IVPB ×3 (06:30→17:27)
--- NOTE | 2024-05-06 09:43 | WPDINTPN ---
Progress Note: A&P Assessment and Plan (1) Acute hypercapnic respiratory failure: Code(s): J96.02 - Acute respiratory failure with hypercapnia Status: Acute Assessment and Plan: Acute hypercapnic respiratory failure despite being on BiPAP, patient had altered mental status, hallucinations with worsening ABGs, patient is a smoker, will have packet per day for many years per daughter, no formal diagnosis of COPD but given her hypercapnic respiratory failure, patient may have COPD and may benefit from pulmonary consult as outpatient -intubated on in the early hours of 05/04/2024 -currently on CMV mode of ventilation, peep of 8,45% FiO2, wean FiO2 to maintain O2 sats > 92% -likely related to pneumonia secondary to influenza -continue Xopenex and Atrovent nebulizer since patient had AFib RVR on admission -continue azithromycin, cefepime -05/05: Vancomycin discontinue, MRSA screen negative -continue to wean Solu-Medrol to off -continue fentanyl and Versed infusion, maintain RASS of 0 to -2, daily sedation vacation (2) Influenza: Code(s): J11.1 - Influenza due to unidentified influenza virus with other respiratory manifestations Status: Acute Assessment and Plan: Influenza A positive, continue Tamiflu (3) PNA (pneumonia): Qualifiers: Pneumonia type: due to influenza A virus Qualified Code(s): J10.00 - Influenza due to other identified influenza virus with unspecified type of pneumonia Code(s): J18.9 - Pneumonia, unspecified organism Status: Acute Assessment and Plan: Pneumonia likely related to influenza/community-acquired -continue antibiotics as above -currently on mechanical ventilation (4) UTI (urinary tract infection): Qualifiers: Urinary tract infection type: acute cystitis Hematuria presence: without hematuria Qualified Code(s): N30.00 - Acute cystitis without hematuria Code(s): N39.0 - Urinary tract infection, site not specified Status: Acute Assessment and Plan: Urinalysis reflective UTI -continue antibiotics as above -05/03: urine cultures growing E coli, pansensitive (5) Atrial fibrillation with RVR: Code(s): I48.91 - Unspecified atrial fibrillation Status: Acute Assessment and Plan: AFib RVR on admission, started on heparin infusion and diltiazem infusion -heart rate better controlled, patient was dropping her heart rates in the 60s with diltiazem infusion was stopped -continue to monitor -will restart home Eliquis and metoprolol and discontinue heparin infusion (6) Type 2 diabetes mellitus with hyperglycemia: Qualifiers: Diabetes mellitus jail insulin use: with jail use Qualified Code(s): E11.65 - Type 2 diabetes mellitus with hyperglycemia; Z79.4 - joint terminal attack controller (current) use of insulin Code(s): E11.65 - Type 2 diabetes mellitus with hyperglycemia Status: Chronic Assessment and Plan: Accu-Cheks and sliding scale insulin -hyperglycemia could be related to steroids, - increase Lantus (7) Fall: Code(s): W19.XXXA - Unspecified fall, initial encounter Status: Acute Assessment and Plan: Patient status post fall at home with contusion to the left eye CT head did not show any acute intracranial hemorrhage or suspicious mass effect, left frontal scalp hematoma without underlying fracture CT cervical spine: Straightening of the normal curvature of the cervical spine, likely muscular in origin. Degenerative disease, without acute fracture. CT chest abdomen pelvis: No acute evidence of traumatic injury Patient will require PT/OT when she is extubated (8) Essential hypertension: Code(s): I10 - Essential (primary) hypertension Status: Chronic Assessment and Plan: Patient intubated and sedated, blood pressures remained stable, -started patient on metoprolol. -hold home lisinopril since decreased urine output and increase in creatinine -will start amlodipine Plan DVT prophylaxis: Apixaban Stress ulcer prophylaxis: Protonix Nutrition: Continues tube feeds, continue MiraLax and senna Code Status: Full code Critical Care Time Spent: 33 minutes Discussed with family and updated them with her condition and plan of care. Due to a high probability of clinically significant, life threatening deterioration, the patient required my highest level of preparedness to intervene emergently and I personally spent this critical care time directly and personally managing the patient. This critical care time included obtaining a history; examining the patient; pulse oximetry; ordering and review of studies; arranging urgent treatment with development of a management plan; evaluation of patient's response to treatment; frequent reassessment; and discussions with other providers. It was exclusive of separately billable procedures and treating other patients and teaching time. Please see Assessment and Plan section and the rest of the note for further information on patient assessment and treatment This dictation may have been done utilizing a voice recognition system. Attempts have been made to correct errors. However, there may be uncorrected grammatical, spelling, and recognitions errors present. Subjective Date/time seen: 05/06/24 09:43 Interval history: Reason for consult: Acute hypercapnic respiratory failure, fall, contusion to left eye, fatigue, shortness of breath, generalized weakness, influenza A positive 05/06/2024: Patient seen and examined the ICU, remains intubated on CMV mode of ventilation, peep of 10, 40% FiO2. Sedated with fentanyl and Versed infusion, does not open her eyes or follow command. Hypotensive this morning, low urine output, stable creatinine. Platelets trending down but still within normal limits. Remains in AFib but rate controlled, afebrile 1 tolerating tube Review of Systems Review of Systems: ROS unobtainable: Yes unobtainable due to endotracheal tube and unobtainable due to medical condition Exam Narrative: General: Intubated and sedated, in no acute distress HEENT:? Right pupil is reactive, left periorbital hematoma, ecchymosis and swelling, swelling of the left eye decreasing, able to open the eye, has chemosis, left pupil also reactive to light, ETT in place Neck:? Supple Respiratory:? Coarse breath sounds bilaterally, rales right > left. No wheezing, adequate air entry Cardiac:? Irregularly irregular, rate controlled Abdomen:? Soft, nontender, obese, hypoactive bowel sounds Extremities:? Bilateral lower extremity edema, palpable pedal pulses Neuro:? Patient is intubated, sedated, opens eyes and follows simple commands in all extremities Skin:? [place] skin, dry, erythematous, not warm. Psych:? Unable to assess at this time Objective Data Vital Signs Vital Signs: Vital Signs - 24 hr 05/05/24 10:05/05/24 10:05/05/24 10:00 Temperature 97.6 F Pulse Rate 74 68 67 Respiratory Rate 26 H 26 H Blood Pressure 153/96 H Pulse Oximetry 97 Oxygen Delivery Fraction of Inspired Oxygen 05/05/24 10:05/05/24 11:58 05/05/24 12:00 Temperature Pulse Rate 67 69 72 Respiratory Rate 26 H 26 H Blood Pressure Pulse Oximetry 96 Oxygen Delivery Mechanical Ventilation Fraction of Inspired Oxygen 45 05/05/24 12:00 05/05/24 12:00 05/05/24 12:00 Temperature Pulse Rate 76 76 76 Respiratory Rate 26 H 26 H Blood Pressure Pulse Oximetry 100 Oxygen Delivery Mechanical Ventilation Fraction of Inspired Oxygen 45 05/05/24 12:00 05/05/24 12:00 05/05/24 14:00 Temperature 98.1 F Pulse Rate 76 72 Respiratory Rate 26 H Blood Pressure 145/92 H Pulse Oximetry 100 Oxygen Delivery Fraction of Inspired Oxygen 45 05/05/24 14:00 05/05/24 14:00 05/05/24 14:00 Temperature 98.3 F Pulse Rate 70 93 93 Respiratory Rate 26 H 26 H 26 H Blood Pressure 156/83 H Pulse Oximetry 95 Oxygen Delivery Fraction of Inspired Oxygen 05/05/24 14:28 05/05/24 14:36 05/05/24 16:00 Temperature Pulse Rate 71 72 75 Respiratory Rate 24 H 24 H Blood Pressure Pulse Oximetry 95 95 Oxygen Delivery Mechanical Ventilation Mechanical Ventilation Fraction of Inspired Oxygen 40 40 05/05/24 16:00 05/05/24 16:00 05/05/24 16:00 Temperature 98.5 F Pulse Rate 77 78 Respiratory Rate 24 H Blood Pressure 157/86 H Pulse Oximetry 95 Oxygen Delivery Fraction of Inspired Oxygen 40 05/05/24 16:00 05/05/24 16:00 05/05/24 17:30 Temperature Pulse Rate 72 73 72 Respiratory Rate 26 H 26 H Blood Pressure Pulse Oximetry 95 Oxygen Delivery Mechanical Ventilation Fraction of Inspired Oxygen 40 05/05/24 18:00 05/05/24 18:00 05/05/24 18:00 Temperature Pulse Rate 75 78 78 Respiratory Rate 26 H 26 H Blood Pressure Pulse Oximetry Oxygen Delivery Fraction of Inspired Oxygen 05/05/24 18:00 05/05/24 20:00 05/05/24 20:00 Temperature 98.5 F 98.7 F Pulse Rate 78 78 Respiratory Rate 26 H 24 H Blood Pressure 163/92 H 165/92 H Pulse Oximetry 95 95 Oxygen Delivery Fraction of Inspired Oxygen 40 05/05/24 20:00 05/05/24 20:00 05/05/24 20:00 Temperature Pulse Rate 84 84 74 Respiratory Rate 24 H 24 H Blood Pressure Pulse Oximetry Oxygen Delivery Fraction of Inspired Oxygen 05/05/24 20:20 05/05/24 20:21 05/05/24 20:30 Temperature Pulse Rate 74 78 86 Respiratory Rate 24 H Blood Pressure Pulse Oximetry 95 95 Oxygen Delivery Mechanical Ventilation Mechanical Ventilation Fraction of Inspired Oxygen 40 40 05/05/24 20:36 05/05/24 20:51 05/05/24 22:00 Temperature Pulse Rate 80 75 70 Respiratory Rate 29 H 24 H Blood Pressure Pulse Oximetry Oxygen Delivery Fraction of Inspired Oxygen 05/05/24 22:00 05/05/24 22:00 05/05/24 22:00 Temperature 98.8 F Pulse Rate 70 70 70 Respiratory Rate 24 H 24 H 24 H Blood Pressure 164/91 H Pulse Oximetry 96 Oxygen Delivery Fraction of Inspired Oxygen 05/05/24 23:07 05/05/24 23:40 05/05/24 23:59 Temperature Pulse Rate 63 71 Respiratory Rate 24 H Blood Pressure Pulse Oximetry 96 96 Oxygen Delivery Mechanical Ventilation Mechanical Ventilation Fraction of Inspired Oxygen 40 40 40 05/06/24 00:00 05/06/24 00:00 05/06/24 00:00 Temperature 98.9 F Pulse Rate 60 67 67 Respiratory Rate 24 H 24 H 24 H Blood Pressure 170/93 H Pulse Oximetry 96 Oxygen Delivery Fraction of Inspired Oxygen 05/06/24 00:00 05/06/24 02:00 05/06/24 02:00 Temperature Pulse Rate 67 64 67 Respiratory Rate 24 H Blood Pressure Pulse Oximetry Oxygen Delivery Fraction of Inspired Oxygen 05/06/24 02:00 05/06/24 02:07 05/06/24 02:08 Temperature 98.7 F Pulse Rate 67 61 61 Respiratory Rate 21 H 24 H 24 H Blood Pressure 164/96 H Pulse Oximetry 97 Oxygen Delivery Fraction of Inspired Oxygen 05/06/24 02:12 05/06/24 02:12 05/06/24 03:45 Temperature Pulse Rate 68 69 Respiratory Rate 24 H Blood Pressure Pulse Oximetry 97 Oxygen Delivery Mechanical Ventilation Fraction of Inspired Oxygen 40 40 05/06/24 03:46 05/06/24 03:46 05/06/24 03:50 Temperature Pulse Rate 72 72 67 Respiratory Rate 24 H 24 H 24 H Blood Pressure Pulse Oximetry 97 Oxygen Delivery Mechanical Ventilation Fraction of Inspired Oxygen 40 05/06/24 04:00 05/06/24 04:00 05/06/24 04:00 Temperature 98.6 F Pulse Rate 74 65 65 Respiratory Rate 24 H 24 H 24 H Blood Pressure 154/94 H Pulse Oximetry 97 Oxygen Delivery Fraction of Inspired Oxygen 05/06/24 04:00 05/06/24 05:04 05/06/24 06:00 Temperature Pulse Rate 63 70 74 Respiratory Rate Blood Pressure Pulse Oximetry 96 Oxygen Delivery Mechanical Ventilation Fraction of Inspired Oxygen 40 05/06/24 06:00 05/06/24 06:00 05/06/24 06:00 Temperature 98.6 F Pulse Rate 72 72 72 Respiratory Rate 24 H 24 H 24 H Blood Pressure 153/92 H Pulse Oximetry 96 Oxygen Delivery Fraction of Inspired Oxygen 05/06/24 08:00 05/06/24 08:12 05/06/24 08:12 Temperature 99.1 F Pulse Rate 70 72 72 Respiratory Rate 24 H 20 Blood Pressure 171/101 H Pulse Oximetry 97 97 Oxygen Delivery Mechanical Ventilation Fraction of Inspired Oxygen 40 05/06/24 08:25 Temperature Pulse Rate 76 Respiratory Rate 20 Blood Pressure Pulse Oximetry Oxygen Delivery Fraction of Inspired Oxygen Intake/Output Intake/Output: Intake & Output 05/03/24 05/04/24 05/05/24 05/06/24 23:59 23:59 23:59 23:59 Intake Total 5986.6 2482.7 1489.2 Output Total 150 525 525 Balance 5836.6 1957.7 964.2 Meds/Results Medications: Active Medications Generic Name Dose Route Start Last Admin Trade Name Freq PRN Reason Stop Dose Admin Acetaminophen 650 mg 05/03/24 22:58 Acetaminophen 325 Mg Tablet PO Q6H PRN Mild Pain (1-3) or Fever Apixaban 5 mg 05/05/24 09:00 05/05/24 20:30 Apixaban 5 Mg Tablet PO 5 mg Q12HR JR Administration Aspirin 81 mg 05/04/24 09:00 05/05/24 08:33 Aspirin 81 Mg Enteric Tablet PO 81 mg DAILY JR Administration Benzocaine 1 lozenge 05/03/24 22:58 Benzocaine/Menthol (*Bkc) 18 Ea Lozenge PO PRN PRN Sore Throat Benzonatate 100 mg 05/03/24 22:58 Benzonatate 100 Mg Capsule PO TID PRN Cough Dextrose 12.5 gm 05/03/24 23:00 Dextrose 50% 25 Gm/50 Ml Syringe IV PUSH PRN PRN Hypoglycemia Protocol Glucagon 1 mg 05/03/24 23:00 Glucagon For Inj 1 Mg Vial IM PRN PRN Hypoglycemia Protocol Glucose 15 gm 05/03/24 23:00 Glucose Oral Gel 15 Gm Of Glucse In 37.5 Gm Tube PO PRN PRN Hypoglycemia Protocol Dextrose 1,000 mls @ 100 mls/hr 05/03/24 23:00 Dextrose 5% 1,000 Ml IVPB PRN PRN Hypoglycemia Protocol Fentanyl Citrate 2,500 mcg in 250 mls @ 15 mls/hr 05/04/24 05:15 05/06/24 06:00 Fentanyl 2,500 Mcg/Ns 250 Ml IV CONT 150 mcg/hr .[id number] JR 15 mls/hr Titration Protocol 150 MCG/HR Midazolam HCl 100 mg in 100 mls @ 5 mls/hr 05/04/24 05:15 05/06/24 06:00 Versed 100 Mg/Ns 100 Ml IV CONT 5 mg/hr .Q20H JR 5 mls/hr Titration Protocol 5 MG/HR Azithromycin 500 mg in 250 mls @ 250 mls/hr 05/04/24 07:00 05/06/24 06:28 Zithromax IVPB Infused Q24H JR Infusion Albumin Human 100 mls @ 60 mls/hr 05/05/24 07:10 05/06/24 06:30 Albutein IVPB 60 mls/hr Q6HR JR Administration Cefepime HCl 2 gm in 50 mls @ 100 mls/hr 05/05/24 18:00 05/06/24 05:58 Maxipime 2 Gm/Ns 50 Ml IVPB Infused Q12H JR Infusion Sodium Chloride 1,000 mls @ 100 mls/hr 05/06/24 07:25 Normal Saline Iv IV CONT 05/06/24 17:24 .Q10H JR Insulin Aspart 3 - 6 units 05/04/24 06:00 05/06/24 06:26 Insulin Aspart (*Bkc) 100 Units/Ml SUB-Q 3 units Q6HR JR Administration Protocol Insulin Glargine 55 units 05/06/24 21:00 Insulin Glargine (*Bkc) 100 Units/Ml SUB-Q HS JR Ipratropium Section 0.5 mg 05/04/24 14:00 05/06/24 08:11 Ipratropium Br 0.02% Inh Soln 0.5 Mg/2.5 Ml Vial INHALATION 0.5 mg Q6HRT JR Administration Levalbuterol HCl 1.25 mg 05/04/24 14:00 05/06/24 08:11 Levalbuterol Neb 1.25 Mg/3 Ml INHALATION 1.25 mg Q6HRT JR Administration Methylprednisolone Sodium Succinate 60 mg 05/05/24 18:00 05/06/24 05:29 Methylprednisolone Sod Succ 125 Mg Vial IV PUSH 60 mg Q12H JR Administration Metoprolol Tartrate 25 mg 05/05/24 09:00 05/05/24 20:30 Metoprolol Tartrate 25 Mg Tablet PO 25 mg Q12HR JR Administration Midazolam HCl 2 mg 05/04/24 05:14 05/04/24 05:56 Midazolam Hcl (*Crx) 2 Mg/2 Ml Vial IV PUSH 2 mg Q5M PRN Administration ventilator asynchrony Multi-Ingred Cream/Lotion/Oil/Oint 1 applic 05/04/24 09:00 05/05/24 20:31 Mineral Oil/White Petrolatum Ointment EACH EYE 1 applic Q12HR JR Administration Ondansetron HCl 4 mg 05/04/24 03:23 05/04/24 03:38 Ondansetron Inj 4 Mg/2 Ml Vial IV PUSH 4 mg Q6H PRN Administration Nausea And Vomiting Oseltamivir Phosphate 30 mg 05/05/24 09:00 05/05/24 20:30 Oseltamivir Phosphate 30 Mg Capsule PO 05/08/24 09:01 30 mg Q12HR JR Administration Pantoprazole Sodium 40 mg 05/04/24 09:00 05/05/24 08:33 Pantoprazole Sodium Iv 40 Mg Vial IV PUSH 40 mg DAILY JR Administration Polyethylene Glycol 17 gm 05/05/24 09:00 05/05/24 09:18 Polyethylene Glycol 3350 17 Gm Powd.Pack PO 17 gm QAM JR Administration Senna/Docusate Sodium 1 tab 05/05/24 21:00 05/05/24 20:30 Senna/Docusate Sodium Tablet PO 1 tab HS JR Administration Sodium Chloride 10 ml 05/04/24 22:00 05/06/24 05:29 Central Line Flush IV PUSH 10 ml Q8HR JR Administration Sodium Chloride 10 ml 05/04/24 14:16 Central Line Flush IV PUSH PRN PRN with TPN bag changes Sodium Chloride 20 ml 05/04/24 14:16 Central Line Flush IV PUSH PRN PRN after blood draws Radiology Results: ITS Impressions Head CT 05/03/24 19:02 Impression: No acute intracranial hemorrhage or suspicious mass effect. Left frontal scalp hematoma without underlying fracture. Cervical Spine CT 05/03/24 19:08 Impression: Straightening of the normal curvature of the cervical spine, likely muscular in origin. Degenerative disease, without acute fracture. Chest/Abdomen/Pelvis CT 05/03/24 19:11 IMPRESSION: No cross-sectional imaging evidence of acute traumatic injury. Innumerable nonacute findings, as detailed above. Abdomen X-Ray 05/04/24 06:38 Impression: NG tube in satisfactory position. Renal Ultrasound 05/05/24 08:23 IMPRESSION: 1. Normal kidneys. No hydronephrosis. Chest X-Ray 05/06/24 05:58 IMPRESSION: 1. Stable airspace opacities in the perihilar regions and lower lung zones, consistent with pneumonia. 2. Cardiomegaly. Labs Labs: Laboratory Results - last 24 hr 05/05/24 05/05/24 05/05/24 08:53 12:06 17:52 WBC RBC Hgb Hct MCV MCH MCHC RDW Plt Count MPV Immature Gran % (Auto) Neut % (Auto) Lymph % (Auto) [place] % (Auto) Eos % (Auto) Baso % (Auto) Lymph # (Auto) [place] # (Auto) Eos # (Auto) Baso # (Auto) Abs Immat Gran (auto) Absolute Neuts (auto) Absolute Nucleated RBC Nucleated RBC % Puncture Site ABG pH ABG pCO2 ABG pO2 ABG PO2/FiO2 Ratio ABG HCO3 ABG O2 Saturation ABG O2 Content ABG Base Excess A-a Gradient Oxyhemoglobin Carboxyhemoglobin Methemoglobin Reduced Hemoglobin Total Hemoglobin O2 Delivery Device O2 Liters/Min Minute Volume Vent Rate Vent Mode FiO2 Tidal Volume PEEP Peak Inspir Pressure Pressure Support Sodium Potassium Chloride Carbon Dioxide Anion Gap BUN Creatinine Estim Creat Clear Calc Estimated GFR Glucose POC Capillary Glucose 273 H 345 H Lactic Acid Calcium Phosphorus Magnesium Total Bilirubin AST ALT Alkaline Phosphatase Total Protein Albumin Urine Eosinophils None seen Ur Random Sodium < 5 Ur Random Potassium 67.5 05/05/24 05/06/24 05/06/24 23:22 05:06 05:37 WBC 8.5 RBC 4.13 L Hgb 11.9 L Hct 37.1 MCV 89.8 MCH 28.8 MCHC 32.1 RDW 14.4 Plt Count 128 L MPV 11.5 H Immature Gran % (Auto) 0.5 Neut % (Auto) 87.5 H Lymph % (Auto) 6.0 L [place] % (Auto) 5.9 Eos % (Auto) 0.0 Baso % (Auto) 0.1 L Lymph # (Auto) 0.51 L [place] # (Auto) 0.5 Eos # (Auto) 0.0 Baso # (Auto) 0.0 Abs Immat Gran (auto) 0.04 H Absolute Neuts (auto) 7.5 H Absolute Nucleated RBC 0.000 Nucleated RBC % 0.0 Puncture Site Right radial ABG pH 7.486 H ABG pCO2 32.1 L ABG pO2 74.8 L ABG PO2/FiO2 Ratio 1.87 ABG HCO3 23.7 ABG O2 Saturation 96.1 ABG O2 Content 17.4 ABG Base Excess 0.9 A-a Gradient 173.5 Oxyhemoglobin 94.8 Carboxyhemoglobin 0.4 Methemoglobin 0.3 Reduced Hemoglobin 4.5 Total Hemoglobin 13.0 O2 Delivery Device Ventilator O2 Liters/Min Not Reportable Minute Volume Not Reportable Vent Rate 24 Vent Mode Cmv FiO2 40 Tidal Volume 390 PEEP 10 Peak Inspir Pressure Not Reportable Pressure Support Not Reportable Sodium 136 L Potassium 4.6 Chloride 102 Carbon Dioxide 24 Anion Gap 10 BUN 53 H Creatinine 1.31 H Estim Creat Clear Calc 50 Estimated GFR 40 L Glucose 229 H POC Capillary Glucose 319 H Lactic Acid 1.4 Calcium 9.5 Phosphorus 3.1 Magnesium 2.4 H Total Bilirubin 0.8 AST 18 ALT 23 Alkaline Phosphatase 58 Total Protein 7.0 Albumin 3.5 Urine Eosinophils Ur Random Sodium Ur Random Potassium Quality VTE Prophylaxis VTE prophylaxis: pharmacologic ordered
[2024-05-06] MEDS: SODIUM CHLORIDE 0.9% IV 1,000 ML 100 ML IV CONT (09:45)
[2024-05-06] MEDS: APIXABAN 5 MG TABLET PO ×2 (09:45→20:44)
[2024-05-06] MEDS: METOPROLOL TARTRATE 25 MG TABLET PO ×2 (09:45→20:44)
[2024-05-06] MEDS: OSELTAMIVIR PHOSPHATE 30 MG CAPSULE PO ×2 (09:45→20:45)
[2024-05-06] MEDS: MINERAL OIL/WHITE PETROLATUM OINTMENT 1 APPLIC EACH EYE ×2 (09:46→20:45)
[2024-05-06] MEDS: polyethylene glycoL 3350 17 GM POWD.PACK PO (09:46)
[2024-05-06] MEDS: INSULIN GLARGINE (*BKC) 100 UNITS/ML 20 UNITS SUB-Q (09:46)
[2024-05-06] MEDS: PANTOPRAZOLE SODIUM IV 40 MG VIAL IV PUSH (09:46)
[2024-05-06] MEDS: ASPIRIN 81 MG ENTERIC TABLET PO (09:49)
[2024-05-06] MEDS: amLODIPine BESYLATE 10 MG TABLET PO (11:35)
[2024-05-06 11:50] LABS: Glucose Point of Care 243 mg/dl (65-105)
[2024-05-06] MEDS: hydrALAZINE HCL 20 MG/ML VIAL 10 MG IV PUSH (17:16)
[2024-05-06 17:45] LABS: Glucose Point of Care 308 mg/dl (65-105)
[2024-05-06] MEDS: SENNA/DOCUSATE SODIUM TABLET 1 TAB PO (20:45)
[2024-05-06] MEDS: INSULIN GLARGINE (*BKC) 100 UNITS/ML 55 UNITS SUB-Q (21:05)
[2024-05-06 21:10] LABS: Glucose Point of Care 299 mg/dl (65-105)
[2024-05-07] VITALS (39 sets, daily range): BP systolic 117–144; BP diastolic 70–95; PULSE 60–96; RESP 20–22; TEMP 36.3–36.8; O2SAT 93–99
[2024-05-07 00:23] LABS: Glucose Point of Care 296 mg/dl (65-105)
[2024-05-07] MEDS: INSULIN ASPART (*BKC) 100 UNITS/ML SUB-Q ×3 (00:26→11:17)
[2024-05-07] MEDS: ALBUMIN HUMAN 25% 25 GM/100 ML 100 ML IVPB ×2 (00:28→06:50)
[2024-05-07] MEDS: MIDAZOLAM 100MG/NS 100ML(*CRX) 100 MG/100 ML BAG 6 MG IV CONT (00:41)
[2024-05-07] MEDS: IPRATROPIUM BR 0.02% INH SOLN 0.5 MG/2.5 ML VIAL INHALATION ×4 (01:56→20:27)
[2024-05-07] MEDS: LEVALBUTEROL NEB 1.25 MG/3 ML INHALATION ×4 (01:56→20:27)
[2024-05-07] MEDS: CEFEPIME 2 GM/NS 50 ML 2 GM/50 ML BAG IVPB ×2 (05:19→17:37)
[2024-05-07] MEDS: CENTRAL LINE FLUSH 10 ML IV PUSH ×3 (05:21→20:53)
[2024-05-07] MEDS: CENTRAL LINE FLUSH 20 ML IV PUSH (05:21)
[2024-05-07 05:28] LABS: Glucose Point of Care 213 mg/dl (65-105)
[2024-05-07 05:32] LABS: Basophils Percent Auto 0.1 % (0.2-1.2); Hematocrit 35.1 % (37.0-47.0); Hemoglobin 11.3 g/dL (12.0-15.0); Immature Granulocyte Absolute 0.05 K/mm3 (0.00-0.031); Immature Granulocyte Percent A 0.6 % (0-0.5); Immature Platelet Fraction Pct 6.4 % (0.9-11.2); Lymphocytes Absolute Auto 0.87 K/mm3 (0.9-3.2); Lymphocytes Percent Auto 10.6 % (18.3-44.2); Mean Corpuscular HGB Conc 32.2 g/dl (32-36); Mean Corpuscular Hemoglobin 29.4 pg (26-34); Mean Corpuscular Volume 91.2 fl (80-100); Mean Platelet Volume 10.9 fl (7.4-10.4); Monocytes Absolute Auto 0.7 K/mm3 (0.1-0.6); Monocytes Percent Auto 8.6 % (2.6-8.5); Neutrophils Absolute Auto 6.6 K/mm3 (1.3-6.7); Neutrophils Percent Auto 80.1 % (45.5-73.1); Red Blood Count 3.85 M/mm3 (4.2-5.4); Red Cell Distribution Width 14.6 % (11.5-14.5); White Blood Count 8.2 K/mm3 (4.5-10.0)
[2024-05-07 05:42] LABS: Alanine Aminotransferase 26 U/L (6-35); Alkaline Phosphatase 49 U/L (38-126); Anion Gap 10 mmol/L (4-12); Aspartate Amino Transferase 22 U/L (14-36); Bilirubin,Total 0.8 mg/dL (0.2-1.3); Blood Urea Nitrogen 58 mg/dL (7-17); Calcium 9.7 mg/dL (8.4-10.2); Carbon Dioxide 24 mmol/L (22-30); Chloride 103 mmol/L (98-107); Estimated CRCL calculation 52 ml/min; Estimated Glomerular Filt Rate 43; Glucose 274 mg/dL (65-110); Lactic Acid Reflex 1.4 mmol/L (0.7-2.0); Magnesium 2.4 mg/dL (1.6-2.3); Phosphorus 3.1 mg/dL (2.5-4.5); Potassium 4.3 mmol/L (3.4-5.0); Sodium 137 mmol/L (137-145)
[2024-05-07] MEDS: AZITHROMYCIN 500 MG/NS 250 ML 500 MG/250 ML BAG 250 MG IVPB (05:48)
[2024-05-07 05:57] LABS: Platelet Count Result 98 k/mm3 (150-375)
[2024-05-07 06:15] LABS: Alveolar/Arterial O2 Gradient 137.3 mmHg; Base Excess ABG -2.5 mEq/l (+/-2.0); Carboxyhemoglobin 0.7 % THb (0-2.0); Fractional Inspired Oxygen 40 %; Methemoglobin ABG 0.2 %THb (0-1.5); Oxygen Saturation ABG 96.4 % (95.0-100.0); Oxyhemoglobin 95.5 % THb (90.0-100.0); PCO2 ABG 48.3 mmHg (35.0-45.0); PO2 ABG 92.4 mmHg (80.0-100.0); PO2 FiO2 Ratio Arterial Blood 2.31 %; Reduced Hemoglobin 3.6 %THb (0-5.0); Total Hemoglobin 12.6 g/dL (12.0-18.0); pH ABG 7.314 (7.350-7.450)
[2024-05-07 06:17] LABS: Arterial Blood Gas PEEP 10 cmH2O; Arterial Blood Gas Tidal Volume 390 ml; Arterial Blood Gas Vent Mode CMV; Arterial Blood Gas Ventilator rate 20 /MIN; Device VENTILATOR; Modified Allen's Test Pass; Site Drawn RIGHT RADIAL
--- NOTE | 2024-05-07 09:19 | WPDINTPN ---
Progress Note: A&P Assessment and Plan (1) Acute hypercapnic respiratory failure: Code(s): J96.02 - Acute respiratory failure with hypercapnia Status: Acute Assessment and Plan: Acute hypercapnic respiratory failure despite being on BiPAP, patient had altered mental status, hallucinations with worsening ABGs, patient is a smoker, will have packet per day for many years per daughter, no formal diagnosis of COPD but given her hypercapnic respiratory failure, patient may have COPD and may benefit from pulmonary consult as outpatient -intubated on in the early hours of 05/04/2024 -currently on CMV mode of ventilation, -likely related to pneumonia secondary to influenza -continue Xopenex and Atrovent nebulizer since patient had AFib RVR on admission -continue azithromycin, cefepime -05/05: Vancomycin discontinue, MRSA screen negative -continue to wean Solu-Medrol to off -continue fentanyl and Versed infusion, maintain RASS of 0 to -2, daily sedation vacation 05/07: Decrease PEEP to 8 (2) Influenza: Code(s): J11.1 - Influenza due to unidentified influenza virus with other respiratory manifestations Status: Acute Assessment and Plan: Influenza A positive, continue Tamiflu (3) PNA (pneumonia): Qualifiers: Pneumonia type: due to influenza A virus Qualified Code(s): J10.00 - Influenza due to other identified influenza virus with unspecified type of pneumonia Code(s): J18.9 - Pneumonia, unspecified organism Status: Acute Assessment and Plan: Pneumonia likely related to influenza/community-acquired -continue antibiotics as above -currently on mechanical ventilation (4) UTI (urinary tract infection): Qualifiers: Urinary tract infection type: acute cystitis Hematuria presence: without hematuria Qualified Code(s): N30.00 - Acute cystitis without hematuria Code(s): N39.0 - Urinary tract infection, site not specified Status: Acute Assessment and Plan: Urinalysis reflective UTI -continue antibiotics as above -05/03: urine cultures growing E coli, pansensitive (5) Atrial fibrillation with RVR: Code(s): I48.91 - Unspecified atrial fibrillation Status: Acute Assessment and Plan: AFib RVR on admission, started on heparin infusion and diltiazem infusion -heart rate better controlled, patient was dropping her heart rates in the 60s with diltiazem infusion was stopped -continue to monitor -continue home Eliquis and metoprolol and discontinue heparin infusion (6) Type 2 diabetes mellitus with hyperglycemia: Qualifiers: Diabetes mellitus assisted insulin use: with assisted use Qualified Code(s): E11.65 - Type 2 diabetes mellitus with hyperglycemia; Z79.4 - chief reservoir 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 of insulin Code(s): E11.65 - Type 2 diabetes mellitus with hyperglycemia Status: Chronic Assessment and Plan: Accu-Cheks and sliding scale insulin -hyperglycemia could be related to steroids, - increase Lantus -weaning steroids to off -switch tube feeds to Glucerna (7) Fall: Code(s): W19.XXXA - Unspecified fall, initial encounter Status: Acute Assessment and Plan: Patient status post fall at home with contusion to the left eye CT head did not show any acute intracranial hemorrhage or suspicious mass effect, left frontal scalp hematoma without underlying fracture CT cervical spine: Straightening of the normal curvature of the cervical spine, likely muscular in origin. Degenerative disease, without acute fracture. CT chest abdomen pelvis: No acute evidence of traumatic injury Patient will require PT/OT when she is extubated (8) Essential hypertension: Code(s): I10 - Essential (primary) hypertension Status: Chronic Assessment and Plan: Patient intubated and sedated, blood pressures remained stable, -hold home lisinopril since decreased urine output and increase in creatinine -continue amlodipine and metoprolol. Plan DVT prophylaxis: Apixaban Stress ulcer prophylaxis: Protonix Nutrition: Continues tube feeds, continue MiraLax and senna Code Status: Full code Critical Care Time Spent: 33 minutes Discussed with family and updated them with her condition and plan of care. Due to a high probability of clinically significant, life threatening deterioration, the patient required my highest level of preparedness to intervene emergently and I personally spent this critical care time directly and personally managing the patient. This critical care time included obtaining a history; examining the patient; pulse oximetry; ordering and review of studies; arranging urgent treatment with development of a management plan; evaluation of patient's response to treatment; frequent reassessment; and discussions with other providers. It was exclusive of separately billable procedures and treating other patients and teaching time. Please see Assessment and Plan section and the rest of the note for further information on patient assessment and treatment This dictation may have been done utilizing a voice recognition system. Attempts have been made to correct errors. However, there may be uncorrected grammatical, spelling, and recognitions errors present. Subjective Date/time seen: 05/07/24 09:19 Interval history: Reason for consult: Acute hypercapnic respiratory failure, fall, contusion to left eye, fatigue, shortness of breath, generalized weakness, influenza A positive 05/07/2024: Patient seen examined the ICU, remains intubated on CMV mode of ventilation, peep of 10, 40% FiO2. Sedated with fentanyl Versed infusion, does not open eyes or follow simple commands. Hemodynamically stable, afebrile adequate urine output. Platelets continue trending down, patient Sandie remains in AFib rate controlled, tolerating tube feeds, no bowel movement Review of Systems Review of Systems: ROS unobtainable: Yes unobtainable due to endotracheal tube and unobtainable due to medical condition Exam Narrative: General: Intubated and sedated, in no acute distress HEENT:? Right pupil is reactive, left periorbital hematoma, ecchymosis and swelling, swelling of the left eye decreasing, able to open the eye, chemosis, left pupil also reactive to light, ETT in place Neck:? Supple Respiratory:? Coarse breath sounds bilaterally, rales right > left. No wheezing, adequate air entry Cardiac:? Irregularly irregular, rate controlled Abdomen:? Soft, nontender, obese, hypoactive bowel sounds Extremities:? Bilateral lower extremity edema, palpable pedal pulses Neuro:? Patient is intubated, sedated, opens eyes and follows simple commands in all extremities Skin:? [place] skin, dry, erythematous, not warm. Psych:? Unable to assess at this time Objective Data Vital Signs Vital Signs: Vital Signs - 24 hr 05/06/24 09:45 05/06/24 10:05/06/24 10:00 Temperature 99.1 F Pulse Rate 69 77 74 Respiratory Rate 20 Blood Pressure 160/99 H Pulse Oximetry 96 Oxygen Delivery Fraction of Inspired Oxygen 05/06/24 10:00 05/06/24 10:00 05/06/24 10:37 Temperature Pulse Rate 72 72 73 Respiratory Rate 24 H 21 H Blood Pressure Pulse Oximetry 97 Oxygen Delivery Mechanical Ventilation Fraction of Inspired Oxygen 40 05/06/24 12:00 05/06/24 12:00 05/06/24 12:00 Temperature Pulse Rate 73 73 Respiratory Rate 20 Blood Pressure Pulse Oximetry 94 Oxygen Delivery Fraction of Inspired Oxygen 40 05/06/24 12:00 05/06/24 12:00 05/06/24 12:00 Temperature 99.4 F Pulse Rate 73 76 75 Respiratory Rate 20 26 H 23 H Blood Pressure 151/85 H Pulse Oximetry 94 Oxygen Delivery Fraction of Inspired Oxygen 05/06/24 13:53 05/06/24 13:54 05/06/24 14:00 Temperature 99.2 F Pulse Rate 79 79 76 Respiratory Rate 20 20 Blood Pressure 148/96 H Pulse Oximetry 97 97 Oxygen Delivery Mechanical Ventilation Fraction of Inspired Oxygen 40 05/06/24 14:00 05/06/24 14:00 05/06/24 14:00 Temperature Pulse Rate 76 73 71 Respiratory Rate 21 H 24 H Blood Pressure Pulse Oximetry Oxygen Delivery Fraction of Inspired Oxygen 05/06/24 14:03 05/06/24 16:00 05/06/24 16:00 Temperature 99.1 F Pulse Rate 79 78 77 Respiratory Rate 20 20 Blood Pressure 151/87 H Pulse Oximetry 97 Oxygen Delivery Fraction of Inspired Oxygen 05/06/24 16:00 05/06/24 16:00 05/06/24 16:00 Temperature Pulse Rate 74 72 Respiratory Rate 20 21 H Blood Pressure Pulse Oximetry Oxygen Delivery Fraction of Inspired Oxygen 40 05/06/24 16:57 05/06/24 18:00 05/06/24 18:00 Temperature 98.9 F 98.6 F Pulse Rate 76 80 777 H Respiratory Rate 20 20 Blood Pressure 133/70 133/76 Pulse Oximetry 97 95 96 Oxygen Delivery Mechanical Ventilation Fraction of Inspired Oxygen 40 05/06/24 18:00 05/06/24 18:00 05/06/24 18:00 Temperature Pulse Rate 78 75 74 Respiratory Rate 20 23 H Blood Pressure Pulse Oximetry Oxygen Delivery Fraction of Inspired Oxygen 05/06/24 20:00 05/06/24 20:00 05/06/24 20:00 Temperature Pulse Rate 78 81 Respiratory Rate 20 Blood Pressure Pulse Oximetry Oxygen Delivery Fraction of Inspired Oxygen 40 05/06/24 20:00 05/06/24 20:30 05/06/24 20:44 Temperature 98.5 F Pulse Rate 79 79 85 Respiratory Rate 20 20 Blood Pressure 129/76 Pulse Oximetry 96 96 Oxygen Delivery Mechanical Ventilation Fraction of Inspired Oxygen 40 05/06/24 20:48 05/06/24 20:51 05/06/24 21:18 Temperature Pulse Rate 77 77 92 Respiratory Rate 20 20 Blood Pressure Pulse Oximetry 96 Oxygen Delivery Mechanical Ventilation Fraction of Inspired Oxygen 40 05/06/24 21:22 05/06/24 21:35 05/06/24 22:00 Temperature Pulse Rate 86 86 88 Respiratory Rate 20 20 Blood Pressure Pulse Oximetry Oxygen Delivery Fraction of Inspired Oxygen 05/06/24 22:00 05/06/24 22:00 05/06/24 22:01 Temperature 98.6 F Pulse Rate 88 88 84 Respiratory Rate 20 20 20 Blood Pressure 138/80 Pulse Oximetry 95 Oxygen Delivery Fraction of Inspired Oxygen 05/06/24 23:28 05/06/24 23:55 05/07/24 00:00 Temperature Pulse Rate 76 81 74 Respiratory Rate 20 20 Blood Pressure Pulse Oximetry 96 Oxygen Delivery Mechanical Ventilation Fraction of Inspired Oxygen 40 05/07/24 00:00 05/07/24 00:00 05/07/24 00:30 Temperature 98.2 F Pulse Rate 71 74 73 Respiratory Rate 20 20 Blood Pressure 144/74 H Pulse Oximetry 96 96 Oxygen Delivery Mechanical Ventilation Fraction of Inspired Oxygen 40 05/07/24 00:30 05/07/24 00:41 05/07/24 01:57 Temperature Pulse Rate 78 78 Respiratory Rate 20 20 Blood Pressure Pulse Oximetry Oxygen Delivery Fraction of Inspired Oxygen 40 05/07/24 01:58 05/07/24 02:00 05/07/24 02:00 Temperature Pulse Rate 78 75 75 Respiratory Rate 20 Blood Pressure 141/85 H Pulse Oximetry 97 96 Oxygen Delivery Mechanical Ventilation Fraction of Inspired Oxygen 40 05/07/24 02:03 05/07/24 02:04 05/07/24 02:12 Temperature Pulse Rate 77 75 76 Respiratory Rate 20 20 20 Blood Pressure Pulse Oximetry Oxygen Delivery Fraction of Inspired Oxygen 05/07/24 04:00 05/07/24 04:00 05/07/24 04:00 Temperature 98.2 F Pulse Rate 74 74 Respiratory Rate 20 20 Blood Pressure 133/77 Pulse Oximetry 97 97 Oxygen Delivery Mechanical Ventilation Fraction of Inspired Oxygen 40 40 05/07/24 04:00 05/07/24 04:05 05/07/24 04:06 Temperature Pulse Rate 70 74 74 Respiratory Rate 20 20 Blood Pressure Pulse Oximetry Oxygen Delivery Fraction of Inspired Oxygen 05/07/24 05:45 02/09/25 06:00 05/07/24 06:00 Temperature 97.9 F Pulse Rate 76 76 76 Respiratory Rate 20 Blood Pressure 139/83 Pulse Oximetry 97 96 Oxygen Delivery Mechanical Ventilation Fraction of Inspired Oxygen 40 05/07/24 06:00 05/07/24 06:00 05/07/24 08:16 Temperature Pulse Rate 76 76 70 Respiratory Rate 20 20 22 H Blood Pressure Pulse Oximetry Oxygen Delivery Fraction of Inspired Oxygen 05/07/24 08:20 Temperature Pulse Rate 72 Respiratory Rate Blood Pressure Pulse Oximetry 97 Oxygen Delivery Mechanical Ventilation Fraction of Inspired Oxygen 40 Intake/Output Intake/Output: Intake & Output 05/04/24 05/05/24 05/06/24 05/07/24 23:59 23:59 23:59 23:59 Intake Total 5986.6 2482.7 2137.3 1031.9 Output Total 389 641 7066 400 Balance 5836.6 1957.7 812.3 631.9 Meds/Results Medications: Active Medications Generic Name Dose Route Start Last Admin Trade Name Freq PRN Reason Stop Dose Admin Acetaminophen 650 mg 05/03/24 22:58 Acetaminophen 325 Mg Tablet PO Q6H PRN Mild Pain (1-3) or Fever Amlodipine Besylate 10 mg 05/06/24 09:50 05/06/24 11:35 Amlodipine Besylate 10 Mg Tablet PO 10 mg DAILY JR Administration Apixaban 5 mg 05/05/24 09:00 05/06/24 20:44 Apixaban 5 Mg Tablet PO 5 mg Q12HR JR Administration Aspirin 81 mg 05/04/24 09:00 05/06/24 09:49 Aspirin 81 Mg Enteric Tablet PO 81 mg DAILY RJ Administration Benzocaine 1 lozenge 05/03/24 22:58 Benzocaine/Menthol (*Bkc) 18 Ea Lozenge PO PRN PRN Sore Throat Benzonatate 100 mg 05/03/24 22:58 Benzonatate 100 Mg Capsule PO TID PRN Cough Dextrose 12.5 gm 05/03/24 23:00 Dextrose 50% 25 Gm/50 Ml Syringe IV PUSH PRN PRN Hypoglycemia Protocol Glucagon 1 mg 05/03/24 23:00 Glucagon For Inj 1 Mg Vial IM PRN PRN Hypoglycemia Protocol Glucose 15 gm 05/03/24 23:00 Glucose Oral Gel 15 Gm Of Glucse In 37.5 Gm Tube PO PRN PRN Hypoglycemia Protocol Hydralazine HCl 10 mg 05/06/24 15:04 05/06/24 17:16 Hydralazine Hcl 20 Mg/Ml Vial IV PUSH 10 mg Q4H PRN Administration Blood Pressure - High Dextrose 1,000 mls @ 100 mls/hr 05/03/24 23:00 Dextrose 5% 1,000 Ml IVPB PRN PRN Hypoglycemia Protocol Fentanyl Citrate 2,500 mcg in 250 mls @ 15 mls/hr 05/04/24 05:15 05/07/24 06:00 Fentanyl 2,500 Mcg/Ns 250 Ml IV CONT 150 mcg/hr .[id number] JR 15 mls/hr Titration Protocol 150 MCG/HR Midazolam HCl 100 mg in 100 mls @ 6 mls/hr 05/04/24 05:15 05/07/24 06:00 Versed 100 Mg/Ns 100 Ml IV CONT 6 mg/hr .[id number] JR 6 mls/hr Titration Protocol 6 MG/HR Azithromycin 500 mg in 250 mls @ 250 mls/hr 05/04/24 07:00 05/07/24 05:48 Zithromax IVPB 250 mls/hr Q24H JR Administration Albumin Human 100 mls @ 60 mls/hr 05/05/24 07:10 05/07/24 06:50 Albutein IVPB 60 mls/hr Q6HR JR Administration Cefepime HCl 2 gm in 50 mls @ 100 mls/hr 05/05/24 18:00 05/07/24 05:19 Maxipime 2 Gm/Ns 50 Ml IVPB 100 mls/hr Q12H JR Administration Insulin Aspart 3 - 6 units 05/04/24 06:00 05/07/24 05:22 Insulin Aspart (*Bkc) 100 Units/Ml SUB-Q 3 units Q6HR JR Administration Protocol Insulin Glargine 65 units 05/07/24 21:00 Insulin Glargine (*Bkc) 100 Units/Ml SUB-Q HS JR Ipratropium [place] 0.5 mg 05/04/24 14:00 05/07/24 08:16 Ipratropium Br 0.02% Inh Soln 0.5 Mg/2.5 Ml Vial INHALATION 0.5 mg Q6HRT JR Administration Levalbuterol HCl 1.25 mg 05/04/24 14:00 05/07/24 08:16 Levalbuterol Neb 1.25 Mg/3 Ml INHALATION 1.25 mg Q6HRT JR Administration Metoprolol Tartrate 25 mg 05/05/24 09:00 05/06/24 20:44 Metoprolol Tartrate 25 Mg Tablet PO 25 mg Q12HR JR Administration Midazolam HCl 2 mg 05/04/24 05:14 05/04/24 05:56 Midazolam Hcl (*Crx) 2 Mg/2 Ml Vial IV PUSH 2 mg Q5M PRN Administration ventilator asynchrony Multi-Ingred Cream/Lotion/Oil/Oint 1 applic 05/04/24 09:00 05/06/24 20:45 Mineral Oil/White Petrolatum Ointment EACH EYE 1 applic Q12HR JR Administration Ondansetron HCl 4 mg 05/04/24 03:23 05/04/24 03:38 Ondansetron Inj 4 Mg/2 Ml Vial IV PUSH 4 mg Q6H PRN Administration Nausea And Vomiting Oseltamivir Phosphate 30 mg 05/05/24 09:00 05/06/24 20:45 Oseltamivir Phosphate 30 Mg Capsule PO 05/08/24 09:01 30 mg Q12HR JR Administration Pantoprazole Sodium 40 mg 05/04/24 09:00 05/06/24 09:46 Pantoprazole Sodium Iv 40 Mg Vial IV PUSH 40 mg DAILY JR Administration Polyethylene Glycol 17 gm 05/05/24 09:00 05/06/24 09:46 Polyethylene Glycol 3350 17 Gm Powd.Pack PO 17 gm QAM JR Administration Senna/Docusate Sodium 1 tab 05/05/24 21:00 05/06/24 20:45 Senna/Docusate Sodium Tablet PO 1 tab HS JR Administration Sodium Chloride 10 ml 05/04/24 22:00 05/07/24 05:21 Central Line Flush IV PUSH 10 ml Q8HR JR Administration Sodium Chloride 10 ml 05/04/24 14:16 Central Line Flush IV PUSH PRN PRN with TPN bag changes Sodium Chloride 20 ml 05/04/24 14:16 05/07/24 05:21 Central Line Flush IV PUSH 20 ml PRN PRN Administration after blood draws Radiology Results: ITS Impressions Head CT 05/03/24 19:02 Impression: No acute intracranial hemorrhage or suspicious mass effect. Left frontal scalp hematoma without underlying fracture. Cervical Spine CT 05/03/24 19:08 Impression: Straightening of the normal curvature of the cervical spine, likely muscular in origin. Degenerative disease, without acute fracture. Chest/Abdomen/Pelvis CT 05/03/24 19:11 IMPRESSION: No cross-sectional imaging evidence of acute traumatic injury. Innumerable nonacute findings, as detailed above. Abdomen X-Ray 05/04/24 06:38 Impression: NG tube in satisfactory position. Renal Ultrasound 05/05/24 08:23 IMPRESSION: 1. Normal kidneys. No hydronephrosis. Chest X-Ray 05/07/24 08:42 IMPRESSION: 1. Persistent opacities in the bilateral perihilar and lower lung zones consistent with pneumonia. Labs Labs: Laboratory Results - last 24 hr 05/06/24 05/06/24 05/06/24 11:35 17:30 21:04 WBC RBC Hgb Hct MCV MCH MCHC RDW Plt Count MPV Immature Gran % (Auto) Neut % (Auto) Lymph % (Auto) [place] % (Auto) Eos % (Auto) Baso % (Auto) Lymph # (Auto) [place] # (Auto) Eos # (Auto) Baso # (Auto) Abs Immat Gran (auto) Absolute Neuts (auto) Absolute Nucleated RBC Nucleated RBC % % Immature Plt Fraction Puncture Site ABG pH ABG pCO2 ABG pO2 ABG PO2/FiO2 Ratio ABG HCO3 ABG O2 Saturation ABG O2 Content ABG Base Excess A-a Gradient Oxyhemoglobin Carboxyhemoglobin Methemoglobin Reduced Hemoglobin Total Hemoglobin O2 Delivery Device O2 Liters/Min Minute Volume Vent Rate Vent Mode FiO2 Tidal Volume PEEP Peak Inspir Pressure Pressure Support Sodium Potassium Chloride Carbon Dioxide Anion Gap BUN Creatinine Estim Creat Clear Calc Estimated GFR Glucose POC Capillary Glucose 243 H 308 H 299 H Lactic Acid Calcium Phosphorus Magnesium Total Bilirubin AST ALT Alkaline Phosphatase Total Protein Albumin 05/07/24 05/07/24 05/07/24 00:20 05:07 05:11 WBC 8.2 RBC 3.85 L Hgb 11.3 L Hct 35.1 L MCV 91.2 MCH 29.4 MCHC 32.2 RDW 14.6 H Plt Count 98 L MPV 10.9 H Immature Gran % (Auto) 0.6 H Neut % (Auto) 80.1 H Lymph % (Auto) 10.6 L [place] % (Auto) 8.6 H Eos % (Auto) 0.0 Baso % (Auto) 0.1 L Lymph # (Auto) 0.87 L [place] # (Auto) 0.7 H Eos # (Auto) 0.0 Baso # (Auto) 0.0 Abs Immat Gran (auto) 0.05 H Absolute Neuts (auto) 6.6 Absolute Nucleated RBC 0.000 Nucleated RBC % 0.0 % Immature Plt Fraction 6.4 Puncture Site ABG pH ABG pCO2 ABG pO2 ABG PO2/FiO2 Ratio ABG HCO3 ABG O2 Saturation ABG O2 Content ABG Base Excess A-a Gradient Oxyhemoglobin Carboxyhemoglobin Methemoglobin Reduced Hemoglobin Total Hemoglobin O2 Delivery Device O2 Liters/Min Minute Volume Vent Rate Vent Mode FiO2 Tidal Volume PEEP Peak Inspir Pressure Pressure Support Sodium 137 Potassium 4.3 Chloride 103 Carbon Dioxide 24 Anion Gap 10 BUN 58 H Creatinine 1.24 H Estim Creat Clear Calc 52 Estimated GFR 43 L Glucose 274 H POC Capillary Glucose 296 H 213 H Lactic Acid 1.4 Calcium 9.7 Phosphorus 3.1 Magnesium 2.4 H Total Bilirubin 0.8 AST 22 ALT 26 Alkaline Phosphatase 49 Total Protein 7.0 Albumin 4.0 05/07/24 05:45 WBC RBC Hgb Hct MCV MCH MCHC RDW Plt Count MPV Immature Gran % (Auto) Neut % (Auto) Lymph % (Auto) [place] % (Auto) Eos % (Auto) Baso % (Auto) Lymph # (Auto) [place] # (Auto) Eos # (Auto) Baso # (Auto) Abs Immat Gran (auto) Absolute Neuts (auto) Absolute Nucleated RBC Nucleated RBC % % Immature Plt Fraction Puncture Site Right radial ABG pH 7.314 L ABG pCO2 48.3 H ABG pO2 92.4 ABG PO2/FiO2 Ratio 2.31 ABG HCO3 24.0 ABG O2 Saturation 96.4 ABG O2 Content 17.0 ABG Base Excess -2.5 A-a Gradient 137.3 Oxyhemoglobin 95.5 Carboxyhemoglobin 0.7 Methemoglobin 0.2 Reduced Hemoglobin 3.6 Total Hemoglobin 12.6 O2 Delivery Device Ventilator O2 Liters/Min Not Reportable Minute Volume Not Reportable Vent Rate 20 Vent Mode Cmv FiO2 40 Tidal Volume 390 PEEP 10 Peak Inspir Pressure Not Reportable Pressure Support Not Reportable Sodium Potassium Chloride Carbon Dioxide Anion Gap BUN Creatinine Estim Creat Clear Calc Estimated GFR Glucose POC Capillary Glucose Lactic Acid Calcium Phosphorus Magnesium Total Bilirubin AST ALT Alkaline Phosphatase Total Protein Albumin Quality VTE Prophylaxis VTE prophylaxis: pharmacologic ordered
[2024-05-07] MEDS: amLODIPine BESYLATE 10 MG TABLET PO (09:42)
[2024-05-07] MEDS: INSULIN GLARGINE (*BKC) 100 UNITS/ML 10 UNITS SUB-Q (09:42)
[2024-05-07] MEDS: OSELTAMIVIR PHOSPHATE 30 MG CAPSULE PO ×2 (09:42→20:47)
[2024-05-07] MEDS: METOPROLOL TARTRATE 25 MG TABLET PO ×2 (09:43→20:47)
[2024-05-07] MEDS: PANTOPRAZOLE SODIUM IV 40 MG VIAL IV PUSH (09:43)
[2024-05-07] MEDS: APIXABAN 5 MG TABLET PO ×2 (09:43→20:47)
[2024-05-07] MEDS: polyethylene glycoL 3350 17 GM POWD.PACK PO (09:43)
[2024-05-07] MEDS: ASPIRIN 81 MG ENTERIC TABLET PO (09:43)
[2024-05-07] MEDS: MINERAL OIL/WHITE PETROLATUM OINTMENT 1 APPLIC EACH EYE ×2 (09:53→20:48)
[2024-05-07 09:56] LABS: Glucose Point of Care 273 mg/dl (65-105)
[2024-05-07 12:13] LABS: Glucose Point of Care 272 mg/dl (65-105)
[2024-05-07 18:29] LABS: Glucose Point of Care 184 mg/dl (65-105)
[2024-05-07 20:26] LABS: Glucose Point of Care 177 mg/dl (65-105)
--- NOTE | 2024-05-07 20:40 | PC.NURSE ---
[address] Mckeon and notified of approximately 100ml of tube feeding vomitus and residual of 510 at shift change. Received order to hold tube feeding this overnight. Clarified Lantus order due to lack of tube feedings for the night and current blood sugar 177; order received to hold tonight's dose of Lantus.
[2024-05-07] MEDS: SENNA/DOCUSATE SODIUM TABLET 1 TAB PO (20:47)
[2024-05-07] MEDS: ONDANSETRON INJ 4 MG/2 ML VIAL IV PUSH (23:35)
[2024-05-08] VITALS (28 sets, daily range): BP systolic 120–164; BP diastolic 74–101; PULSE 81–118; RESP 13–25; TEMP 36.8–37.9; O2SAT 95–100
[2024-05-08] MEDS: hydrALAZINE HCL 20 MG/ML VIAL 10 MG IV PUSH (00:38)
[2024-05-08 01:07] LABS: Glucose Point of Care 127 mg/dl (65-105)
[2024-05-08] MEDS: IPRATROPIUM BR 0.02% INH SOLN 0.5 MG/2.5 ML VIAL INHALATION ×4 (02:40→21:08)
[2024-05-08] MEDS: LEVALBUTEROL NEB 1.25 MG/3 ML INHALATION ×4 (02:40→21:08)
[2024-05-08] MEDS: CENTRAL LINE FLUSH 10 ML IV PUSH ×3 (05:23→20:47)
[2024-05-08] MEDS: CENTRAL LINE FLUSH 20 ML IV PUSH (05:23)
[2024-05-08] MEDS: CEFEPIME 2 GM/NS 50 ML 2 GM/50 ML BAG IVPB ×2 (05:23→18:52)
[2024-05-08 05:27] LABS: Basophils Percent Auto 0.1 % (0.2-1.2); Eosinophils Percent Auto 0.1 % (0-4.4); Hematocrit 40.9 % (37.0-47.0); Hemoglobin 12.7 g/dL (12.0-15.0); Immature Granulocyte Absolute 0.07 K/mm3 (0.00-0.031); Immature Granulocyte Percent A 0.7 % (0-0.5); Immature Platelet Fraction Pct 6.2 % (0.9-11.2); Lymphocytes Absolute Auto 0.91 K/mm3 (0.9-3.2); Lymphocytes Percent Auto 8.5 % (18.3-44.2); Mean Corpuscular HGB Conc 31.1 g/dl (32-36); Mean Corpuscular Hemoglobin 29.1 pg (26-34); Mean Corpuscular Volume 93.6 fl (80-100); Mean Platelet Volume 11.4 fl (7.4-10.4); Monocytes Absolute Auto 0.9 K/mm3 (0.1-0.6); Monocytes Percent Auto 8.3 % (2.6-8.5); Neutrophils Absolute Auto 8.8 K/mm3 (1.3-6.7); Neutrophils Percent Auto 82.3 % (45.5-73.1); Platelet Count Result 100 k/mm3 (150-375); Red Blood Count 4.37 M/mm3 (4.2-5.4); Red Cell Distribution Width 14.6 % (11.5-14.5); White Blood Count 10.7 K/mm3 (4.5-10.0)
[2024-05-08 05:33] LABS: Alveolar/Arterial O2 Gradient 53.7 mmHg; Base Excess ABG -4.6 mEq/l (+/-2.0); Carboxyhemoglobin 0.7 % THb (0-2.0); Fractional Inspired Oxygen 28 %; HCO3 ABG 22.6 mEq/l (22.0-26.0); Methemoglobin ABG 0.3 %THb (0-1.5); Oxygen Content ABG 17.7 %vol (16.0-22.0); Oxygen Saturation ABG 95.2 % (95.0-100.0); Oxyhemoglobin 95.5 % THb (90.0-100.0); PCO2 ABG 50.4 mmHg (35.0-45.0); PO2 ABG 86.5 mmHg (80.0-100.0); PO2 FiO2 Ratio Arterial Blood 3.09 %; Reduced Hemoglobin 3.5 %THb (0-5.0); Total Hemoglobin 13.1 g/dL (12.0-18.0)
[2024-05-08 05:34] LABS: Device VENTILATOR; Modified Allen's Test Pass; Site Drawn RIGHT RADIAL; pH ABG 7.269 (7.350-7.450)
[2024-05-08 05:35] LABS: Arterial Blood Gas PEEP 8 cmH2O; Arterial Blood Gas Tidal Volume 390 ml; Arterial Blood Gas Vent Mode CMV; Arterial Blood Gas Ventilator rate 22 /MIN
[2024-05-08 05:41] LABS: Alanine Aminotransferase 66 U/L (6-35); Albumin Level 4.3 g/dL (3.5-5.1); Alkaline Phosphatase 54 U/L (38-126); Anion Gap 9 mmol/L (4-12); Aspartate Amino Transferase 44 U/L (14-36); Blood Urea Nitrogen 70 mg/dL (7-17); Carbon Dioxide 26 mmol/L (22-30); Chloride 104 mmol/L (98-107); Estimated CRCL calculation 48 ml/min; Estimated Glomerular Filt Rate 39; Glucose 159 mg/dL (65-110); Lactic Acid Reflex 0.6 mmol/L (0.7-2.0); Magnesium 2.6 mg/dL (1.6-2.3); Phosphorus 4.5 mg/dL (2.5-4.5); Potassium 4.8 mmol/L (3.4-5.0); Sodium 139 mmol/L (137-145)
[2024-05-08] MEDS: AZITHROMYCIN 500 MG/NS 250 ML 500 MG/250 ML BAG 250 MG IVPB (06:01)
[2024-05-08] MEDS: METOPROLOL TARTRATE 25 MG TABLET PO ×2 (08:52→20:46)
[2024-05-08] MEDS: PANTOPRAZOLE SODIUM IV 40 MG VIAL IV PUSH (08:52)
[2024-05-08] MEDS: amLODIPine BESYLATE 10 MG TABLET PO (08:53)
[2024-05-08] MEDS: APIXABAN 5 MG TABLET PO ×2 (08:53→20:47)
[2024-05-08] MEDS: OSELTAMIVIR PHOSPHATE 30 MG CAPSULE PO (08:53)
[2024-05-08] MEDS: ASPIRIN 81 MG ENTERIC TABLET PO (08:53)
[2024-05-08] MEDS: MINERAL OIL/WHITE PETROLATUM OINTMENT 1 APPLIC EACH EYE ×2 (08:53→20:46)
--- NOTE | 2024-05-08 09:16 | P.PNINT_ITS ---
Progress Note: A&P Assessment and Plan (1) Acute hypercapnic respiratory failure: Code(s): J96.02 - Acute respiratory failure with hypercapnia Status: Acute Assessment and Plan: Acute hypercapnic respiratory failure despite being on BiPAP, patient had altered mental status, hallucinations with worsening ABGs, patient is a smoker, will have packet per day for many years per daughter, no formal diagnosis of C OPD but given her hypercapnic respiratory failure, patient may have COPD and may benefit from pulmonary consult as outpatient -intubated on in the early hours of 05/04/2024 -currently on CMV mode of ventilation, -likely related to pneumonia secondary to influenza -continue Xopenex and Atrovent nebulizer since patient had AFib RVR on admission -continue azithromycin, cefepime -05/05: Vancomycin discontinue, MRSA screen negative -continue to wean Solu-Medrol to off -continue fentanyl and Versed infusion, maintain RASS of 0 to -2, daily sedation vacation 05/08: Chest X ray shows bilateral infiltrates, pneumonia versus pulmonary edema, patient is positive fluid balance, will diurese with Lasix x1 (2) Influenza: Code(s): J11.1 - Influenza due to unidentified influenza virus with other respiratory manifestations Status: Acute Assessment and Plan: Influenza A positive, completed the 5 day course of Tamiflu (3) PNA (pneumonia): Qualifiers: Pneumonia type: due to influenza A virus Qualified Code(s): J10.00 - Influenza due to other identified influenza virus with unspecified type of pneum onia Code(s): J18.9 - Pneumonia, unspecified organism Status: Acute Assessment and Plan: Pneumonia likely related to influenza/community-acquired -continue antibiotics as above -currently on mechanical ventilation (4) UTI (urinary tract infection): Qualifiers: Urinary tract infection type: acute cystitis Hematuria presence: without hematuria Qualified Code(s): N30.00 - Acute cystitis without hematuria Code(s): N39.0 - Urinary tract infection, site not specified Status: Acute Assessment and Plan: Urinalysis reflective UTI -continue antibiotics as above -05/03: urine cultures growing E coli, pansensitive (5) Atrial fibrillation with RVR: Code(s): I48.91 - Unspecified atrial fibrillation Status: Acute Assessment and Plan: AFib RVR on admission, initially was started on heparin infusion and diltiazem infusion, which were later discontinued -heart rate better controlled, patient was dropping her heart rates in the 60s with diltiazem infusion was stopped -continue to monitor -continue home Eliquis and metoprolol and discontinue heparin infusion (6) Type 2 diabetes mellitus with hyperglycemia: Qualifiers: Diabetes mellitus prison insulin use: with dispatch lead use Qualified Code(s): E11.65 - Type 2 diabetes mellitus with hyperglycemia; Z79.4 - shelter (current) use of insulin Code(s): E11.65 - Type 2 diabetes mellitus with hyperglycemia Status: Chronic Assessment and Plan: Accu-Cheks and sliding scale insulin -hyperglycemia could be related to steroids, -hold Lantus as patient not tolerating tube feeds -weaning steroids to off -switch tube feeds to Glucerna (7) Fall: Code(s): W19.XXXA - Unspecified fall, initial encounter Status: Acute Assessment and Plan: Patient status post fall at home with contusion to the left eye CT head did not show any acute intracranial hemorrhage or suspicious mass effect, left frontal scalp hematoma without underlying fracture CT cervical spine: Straightening of the normal curvature of the cervical spine, likely muscular in origin. Degenerative disease, without acute fracture. CT chest abdomen pelvis: No acute evidence of traumatic injury Patient will require PT/OT when she is extubated (8) Essential hypertension: Code(s): I10 - Essential (primary) hypertension Status: Chronic Assessment and Plan: Patient intubated and sedated, blood pressures remained stable, -hold home lisinopril since decreased urine output and increase in creatinine -continue amlodipine and metoprolol. Plan DVT prophylaxis: Apixaban Stress ulcer prophylaxis: Protonix Nutrition: Continues tube feeds, continue MiraLax and senna Code Status: Full code Critical Care Time Spent: 33 minutes Discussed with family and updated them with her condition and plan of care. Due to a high probability of clinically significant, life threatening deterioration, the patient required my highest level of preparedness to intervene emergently and I personally spent this critical care time directly and personally managing the patient. This critical care time included obtaining a history; examining the patient; pulse oximetry; ordering and review of studies; arranging urgent treatment with development of a management plan; evaluation of patient's response to treatment; frequent reassessment; and discussions with other providers. It was exclusive of separately billable procedures and treating other patients and teaching time. Please see Assessment and Plan section and the rest of the note for further information on patient assessment and treatment This dictation may have been done utilizing a voice recognition system. Attempts have been made to correct errors. However, there may be uncorrected grammatical, spelling, and recognitions errors present. Subjective Date/time seen: 05/08/24 09:16 Interval history: Reason for consult: Acute hypercapnic respiratory failure, fall, contusion to left eye, fatigue, shortness of breath, generalized weakness, influenza A positive 05/08/2024: Patient seen and examined the ICU, remains intubated on CMV mode of ventilation, peep of 8, 28% FiO2. Off all sedation, patient opens eyes and follows simple commands. Hemodynamically stable, low urine output. Patient has not been tolerating her tube feeds, has had multiple episodes of emesis. Remains in AFib, rate controlled Review of Systems Review of Systems: ROS unobtainable: Yes unobtainable due to endotracheal tube and unobtainable due to medical condition Exam Narrative: General: Intubated and sedated, in no acute distress HEENT:? Right pupil is reactive, left periorbital hematoma, ecchymosis and swelling, swelling of the left eye decreasing, able to open the eye, chemosis, left pupil also reactive to light, ETT in place Neck:? Supple Respiratory:? Coarse breath sounds bilaterally, rales right > left. No wheezing, adequate air entry Cardiac:? Irregularly irregular, rate controlled Abdomen:? Soft, nontender, obese, hypoactive bowel sounds Extremities:? Bilateral lower extremity edema, palpable pedal pulses Neuro:? Patient is intubated, off sedation, opens eyes, follows simple commands in all extremities Skin:? Lillian skin, dry, erythematous, not warm. Psych:? Unable to assess at this time Objective Data Vital Signs Vital Signs: Vital Signs - 24 hr 05/07/24 09:43 05/07/24 10:00 05/07/24 10:00 Temperature 97.4 F L Pulse Rate 60 73 72 Respiratory Rate 22 H Blood Pressure 125/91 H Pulse Oximetry 99 Oxygen Delivery Fraction of Inspired Oxygen 05/07/24 10:43 05/07/24 10:43 05/07/24 11:10 Temperature Pulse Rate 66 69 96 Respiratory Rate 22 H 22 H Blood Pressure Pulse Oximetry 93 Oxygen Delivery Mechanical Ventilation Fraction of Inspired Oxygen 30 05/07/24 12:00 05/07/24 12:00 05/07/24 12:00 Temperature Pulse Rate 92 Respiratory Rate Blood Pressure Pulse Oximetry 93 Oxygen Delivery Mechanical Ventilation Fraction of Inspired Oxygen 30 30 05/07/24 12:00 05/07/24 13:23 05/07/24 13:24 Temperature 98 F Pulse Rate 78 74 83 Respiratory Rate 22 H 22 H 22 H Blood Pressure 129/83 Pulse Oximetry 95 Oxygen Delivery Fraction of Inspired Oxygen 05/07/24 13:52 05/07/24 13:54 05/07/24 14:00 Temperature Pulse Rate 84 77 89 Respiratory Rate 22 H Blood Pressure Pulse Oximetry 94 Oxygen Delivery Mechanical Ventilation Fraction of Inspired Oxygen 30 05/07/24 14:00 05/07/24 16:00 05/07/24 16:00 Temperature 97.9 F Pulse Rate 79 82 Respiratory Rate 22 H Blood Pressure 131/87 Pulse Oximetry 96 96 Oxygen Delivery Mechanical Ventilation Fraction of Inspired Oxygen 30 05/07/24 16:00 05/07/24 16:00 05/07/24 17:18 Temperature 97.9 F Pulse Rate 78 84 Respiratory Rate 22 H Blood Pressure 136/82 Pulse Oximetry 95 93 Oxygen Delivery Mechanical Ventilation Fraction of Inspired Oxygen 30 30 05/07/24 18:00 05/07/24 18:00 05/07/24 20:00 Temperature 98 F Pulse Rate 76 85 79 Respiratory Rate 22 H 22 H Blood Pressure 136/83 Pulse Oximetry 99 97 Oxygen Delivery Mechanical Ventilation Fraction of Inspired Oxygen 30 05/07/24 20:00 05/07/24 20:00 05/07/24 20:00 Temperature 97.9 F Pulse Rate 79 79 Respiratory Rate 22 H Blood Pressure 138/95 H Pulse Oximetry 97 Oxygen Delivery Fraction of Inspired Oxygen 30 05/07/24 20:32 05/07/24 20:35 05/07/24 20:43 Temperature Pulse Rate 88 78 87 Respiratory Rate 22 H 22 H Blood Pressure Pulse Oximetry 98 Oxygen Delivery Mechanical Ventilation Fraction of Inspired Oxygen 30 05/07/24 20:47 05/07/24 22:00 05/07/24 22:00 Temperature 98.1 F Pulse Rate 84 85 81 Respiratory Rate 22 H Blood Pressure 141/90 H Pulse Oximetry 99 Oxygen Delivery Fraction of Inspired Oxygen 05/07/24 23:12 05/08/24 00:30 05/08/24 00:30 Temperature Pulse Rate 92 86 86 Respiratory Rate 22 H Blood Pressure Pulse Oximetry 99 96 Oxygen Delivery Mechanical Ventilation Mechanical Ventilation Fraction of Inspired Oxygen 30 30 05/08/24 00:30 05/08/24 00:30 05/08/24 02:00 Temperature 98.6 F Pulse Rate 86 85 Respiratory Rate 22 H Blood Pressure 155/86 H Pulse Oximetry 96 Oxygen Delivery Fraction of Inspired Oxygen 30 05/08/24 02:00 05/08/24 02:41 05/08/24 02:42 Temperature 98.3 F Pulse Rate 85 87 92 Respiratory Rate 22 H 22 H Blood Pressure 142/97 H Pulse Oximetry 98 97 Oxygen Delivery Mechanical Ventilation Fraction of Inspired Oxygen 30 05/08/24 02:53 05/08/24 04:00 05/08/24 04:00 Temperature Pulse Rate 83 87 87 Respiratory Rate 22 H 22 H Blood Pressure Pulse Oximetry 96 Oxygen Delivery Mechanical Ventilation Fraction of Inspired Oxygen 28 05/08/24 04:00 05/08/24 04:00 05/08/24 06:00 Temperature 98.4 F Pulse Rate 87 93 Respiratory Rate 22 H Blood Pressure 150/95 H Pulse Oximetry 96 Oxygen Delivery Fraction of Inspired Oxygen 28 05/08/24 06:00 05/08/24 07:52 05/08/24 07:52 Temperature Pulse Rate 93 100 102 H Respiratory Rate 22 H 22 H Blood Pressure 151/93 H Pulse Oximetry 97 95 Oxygen Delivery Mechanical Ventilation Fraction of Inspired Oxygen 28 05/08/24 07:52 05/08/24 08:00 05/08/24 08:00 Temperature 98.6 F 98.6 F Pulse Rate 102 H 100 Respiratory Rate 18 22 H Blood Pressure 160/94 H 160/94 H Pulse Oximetry 95 95 Oxygen Delivery Fraction of Inspired Oxygen 28 05/08/24 08:47 05/08/24 08:47 05/08/24 08:52 Temperature Pulse Rate 89 89 85 Respiratory Rate 24 H Blood Pressure Pulse Oximetry 97 Oxygen Delivery Mechanical Ventilation Fraction of Inspired Oxygen 28 Intake/Output Intake/Output: Intake & Output 05/05/24 05/06/24 05/07/24 05/08/24 23:59 23:59 23:59 23:59 Intake Total 2482.7 2137.3 2395.0 100 Output Total 525 1325 600 320 Balance 1957.7 812.3 1795.0 -220 Meds/Results Medications: Active Medications Generic Name Dose Route Start Last Admin Trade Name Freq PRN Reason Stop Dose Admin Acetaminophen 650 mg 05/03/24 22:58 Acetaminophen 325 Mg Tablet PO Q6H PRN Mild Pain (1-3) or Fever Amlodipine Besylate 10 mg 05/06/24 09:50 05/08/24 08:53 Amlodipine Besylate 10 Mg Tablet PO 10 mg DAILY JR Administration Apixaban 5 mg 05/05/24 09:00 05/08/24 08:53 Apixaban 5 Mg Tablet PO 5 mg Q12HR JR Administration Aspirin 81 mg 05/04/24 09:00 05/08/24 08:53 Aspirin 81 Mg Enteric Tablet PO 81 mg DAILY JR Administration Benzocaine 1 lozenge 05/03/24 22:58 Benzocaine/Menthol (*Bkc) 18 Ea Lozenge PO PRN PRN Sore Throat Benzonatate 100 mg 05/03/24 22:58 Benzonatate 100 Mg Capsule PO TID PRN Cough Dextrose 12.5 gm 05/03/24 23:00 Dextrose 50% 25 Gm/50 Ml Syringe IV PUSH PRN PRN Hypoglycemia Protocol Glucagon 1 mg 05/03/24 23:00 Glucagon For Inj 1 Mg Vial IM PRN PRN Hypoglycemia Protocol Glucose 15 gm 05/03/24 23:00 Glucose Oral Gel 15 Gm Of Glucse In 37.5 Gm Tube PO PRN PRN Hypoglycemia Protocol Hydralazine HCl 10 mg 05/06/24 15:04 05/08/24 00:38 Hydralazine Hcl 20 Mg/Ml Vial IV PUSH 10 mg Q4H PRN Administration Blood Pressure - High Dextrose 1,000 mls @ 100 mls/hr 05/03/24 23:00 Dextrose 5% 1,000 Ml IVPB PRN PRN Hypoglycemia Protocol Azithromycin 500 mg in 250 mls @ 250 mls/hr 05/04/24 07:00 05/08/24 06:01 Zithromax IVPB 250 mls/hr Q24H JR Administration Cefepime HCl 2 gm in 50 mls @ 100 mls/hr 05/05/24 18:00 05/08/24 05:56 Maxipime 2 Gm/Ns 50 Ml IVPB Infused Q12H JR Infusion Dexmedetomidine HCl 400 mcg in 100 mls @ 7.04 mls/hr 05/07/24 12:25 Precedex 400 Mcg/100 Ml IV CONT .[id number] PENDING SALE TO [facility] Protocol 0.2 MCG/KG/HR Insulin Aspart 4 - 8 units 05/07/24 18:00 05/08/24 00:37 Insulin Aspart (*Bkc) 100 Units/Ml SUB-Q Not Given Q6H PENDING SALE TO [facility] Protocol Insulin Glargine 65 units 05/07/24 21:00 Insulin Glargine (*Bkc) 100 Units/Ml SUB-Q [facility] Ipratropium [place] 0.5 mg 05/04/24 14:00 05/08/24 08:47 Ipratropium Br 0.02% Inh Soln 0.5 Mg/2.5 Ml Vial INHALATION 0.5 mg Q6HRT JR Administration Levalbuterol HCl 1.25 mg 05/04/24 14:00 05/08/24 08:47 Levalbuterol Neb 1.25 Mg/3 Ml INHALATION 1.25 mg Q6HRT JR Administration Metoprolol Tartrate 25 mg 05/05/24 09:00 05/08/24 08:52 Metoprolol Tartrate 25 Mg Tablet PO 25 mg Q12HR JR Administration Midazolam HCl 2 mg 05/04/24 05:14 05/04/24 05:56 Midazolam Hcl (*Crx) 2 Mg/2 Ml Vial IV PUSH 2 mg Q5M PRN Administration ventilator asynchrony Multi-Ingred Cream/Lotion/Oil/Oint 1 applic 05/04/24 09:00 05/08/24 08:53 Mineral Oil/White Petrolatum Ointment EACH EYE 1 applic Q12HR JR Administration Ondansetron HCl 4 mg 05/04/24 03:23 05/07/24 23:35 Ondansetron Inj 4 Mg/2 Ml Vial IV PUSH 4 mg Q6H PRN Administration Nausea And Vomiting Oseltamivir Phosphate 30 mg 05/05/24 09:00 05/08/24 08:53 Oseltamivir Phosphate 30 Mg Capsule PO 05/08/24 09:01 30 mg Q12HR JR Administration Pantoprazole Sodium 40 mg 05/04/24 09:00 05/08/24 08:52 Pantoprazole Sodium Iv 40 Mg Vial IV PUSH 40 mg DAILY JR Administration Polyethylene Glycol 17 gm 05/05/24 09:00 05/08/24 08:54 Polyethylene Glycol 3350 17 Gm Powd.Pack PO Not Given QAM JR Senna/Docusate Sodium 1 tab 05/05/24 21:00 05/07/24 20:47 Senna/Docusate Sodium Tablet PO 1 tab HS RJ Administration Sodium Chloride 10 ml 05/04/24 22:00 05/08/24 05:23 Central Line Flush IV PUSH 10 ml Q8HR JR Administration Sodium Chloride 10 ml 05/04/24 14:16 Central Line Flush IV PUSH PRN PRN with TPN bag changes Sodium Chloride 20 ml 05/04/24 14:16 05/08/24 05:23 Central Line Flush IV PUSH 20 ml PRN PRN Administration after blood draws Radiology Results: ITS Impressions Head CT 05/03/24 19:02 Impression: No acute intracranial hemorrhage or suspicious mass effect. Left frontal scalp hematoma without underlying fracture. Cervical Spine CT 05/03/24 19:08 Impression: Straightening of the normal curvature of the cervical spine, likely muscular in origin. Degenerative disease, without acute fracture. Chest/Abdomen/Pelvis CT 05/03/24 19:11 IMPRESSION: No cross-sectional imaging evidence of acute traumatic injury. Innumerable nonacute findings, as detailed above. Renal Ultrasound 05/05/24 08:23 IMPRESSION: 1. Normal kidneys. No hydronephrosis. Chest X-Ray 05/08/24 07:19 Impression: Stable patchy bibasilar and perihilar airspace disease. Correlate for pulmonary edema/atelectasis versus pneumonia. Possible minimal pleural effusions. Support tubes, as above. Abdomen X-Ray 05/08/24 08:26 IMPRESSION: 1. No free intraperitoneal gas or dilated gas-filled loops of bowel to suggest obstruction. 2. Bilateral airspace opacities consistent with atelectasis or pneumonia. Labs Labs: Laboratory Results - last 24 hr 05/07/24 05/07/24 05/07/24 09:39 11:15 17:35 WBC RBC Hgb Hct MCV MCH MCHC RDW Plt Count MPV Immature Gran % (Auto) Neut % (Auto) Lymph % (Auto) [place] % (Auto) Eos % (Auto) Baso % (Auto) Lymph # (Auto) [place] # (Auto) Eos # (Auto) Baso # (Auto) Abs Immat Gran (auto) Absolute Neuts (auto) Absolute Nucleated RBC Nucleated RBC % % Immature Plt Fraction Puncture Site ABG pH ABG pCO2 ABG pO2 ABG PO2/FiO2 Ratio ABG HCO3 ABG O2 Saturation ABG O2 Content ABG Base Excess A-a Gradient Oxyhemoglobin Carboxyhemoglobin Methemoglobin Reduced Hemoglobin Total Hemoglobin O2 Delivery Device O2 Liters/Min Minute Volume Vent Rate Vent Mode FiO2 Tidal Volume PEEP Peak Inspir Pressure Pressure Support Sodium Potassium Chloride Carbon Dioxide Anion Gap BUN Creatinine Estim Creat Clear Calc Estimated GFR Glucose POC Capillary Glucose 273 H 272 H 184 H Lactic Acid Calcium Phosphorus Magnesium Total Bilirubin AST ALT Alkaline Phosphatase Total Protein Albumin 05/07/24 05/08/24 05/08/24 20:22 00:35 05:13 WBC 10.7 H RBC 4.37 Hgb 12.7 Hct 40.9 MCV 93.6 MCH 29.1 MCHC 31.1 L RDW 14.6 H Plt Count 100 L MPV 11.4 H Immature Gran % (Auto) 0.7 H Neut % (Auto) 82.3 H Lymph % (Auto) 8.5 L [place] % (Auto) 8.3 Eos % (Auto) 0.1 Baso % (Auto) 0.1 L Lymph # (Auto) 0.91 [place] # (Auto) 0.9 H Eos # (Auto) 0.0 Baso # (Auto) 0.0 Abs Immat Gran (auto) 0.07 H Absolute Neuts (auto) 8.8 H Absolute Nucleated RBC 0.000 Nucleated RBC % 0.0 % Immature Plt Fraction 6.2 Puncture Site ABG pH ABG pCO2 ABG pO2 ABG PO2/FiO2 Ratio ABG HCO3 ABG O2 Saturation ABG O2 Content ABG Base Excess A-a Gradient Oxyhemoglobin Carboxyhemoglobin Methemoglobin Reduced Hemoglobin Total Hemoglobin O2 Delivery Device O2 Liters/Min Minute Volume Vent Rate Vent Mode FiO2 Tidal Volume PEEP Peak Inspir Pressure Pressure Support Sodium 139 Potassium 4.8 Chloride 104 Carbon Dioxide 26 Anion Gap 9 BUN 70 H D Creatinine 1.34 H Estim Creat Clear Calc 48 Estimated GFR 39 L Glucose 159 H POC Capillary Glucose 177 H 127 H Lactic Acid 0.6 L Calcium 10.0 Phosphorus 4.5 Magnesium 2.6 H Total Bilirubin 1.0 AST 44 H ALT 66 H Alkaline Phosphatase 54 Total Protein 7.0 Albumin 4.3 05/08/24 05:30 WBC RBC Hgb Hct MCV MCH MCHC RDW Plt Count MPV Immature Gran % (Auto) Neut % (Auto) Lymph % (Auto) [place] % (Auto) Eos % (Auto) Baso % (Auto) Lymph # (Auto) [place] # (Auto) Eos # (Auto) Baso # (Auto) Abs Immat Gran (auto) Absolute Neuts (auto) Absolute Nucleated RBC Nucleated RBC % % Immature Plt Fraction Puncture Site Right radial ABG pH 7.269 L* ABG pCO2 50.4 H ABG pO2 86.5 ABG PO2/FiO2 Ratio 3.09 ABG HCO3 22.6 ABG O2 Saturation 95.2 ABG O2 Content 17.7 ABG Base Excess -4.6 A-a Gradient 53.7 Oxyhemoglobin 95.5 Carboxyhemoglobin 0.7 Methemoglobin 0.3 Reduced Hemoglobin 3.5 Total Hemoglobin 13.1 O2 Delivery Device Ventilator O2 Liters/Min Not Reportable Minute Volume Not Reportable Vent Rate 22 Vent Mode Cmv FiO2 28 Tidal Volume 390 PEEP 8 Peak Inspir Pressure Not Reportable Pressure Support Not Reportable Sodium Potassium Chloride Carbon Dioxide Anion Gap BUN Creatinine Estim Creat Clear Calc Estimated GFR Glucose POC Capillary Glucose Lactic Acid Calcium Phosphorus Magnesium Total Bilirubin AST ALT Alkaline Phosphatase Total Protein Albumin Quality VTE Prophylaxis VTE prophylaxis: pharmacologic ordered
--- NOTE | 2024-05-08 10:47 | PCFNICU ---
Addendum entered by Kaylee Gerber, DAWOOD, LDN 05/10/24 11:25: Pt current nutrition is GLUCERNA 1.2 @ 50 ml/h goal rate ON HOLD. Formula was switched from Vital 1.2 to Glucerna 1.2 by Nutrition recommendation: Resume tube feeding at trickle rate 20 ml/h to establish tolerance Last recorded weight is 139.4 kg. Bowel Motility: +1 Bm today 05/08/24 Labs Reviewed: GFR 39, BUn 70, cre 1.34, Glu 159, Mag 2.6 Meds Noted: reglan, No sedation, Lasix, lantus, miralax Skin: Bruising to legs Additional Notes: Tube feeding was held due to higher residuals and nausea. Reglan started. Tube feeding to resume today at trickle rate and advance as tolerated. Following daily in ICU rounds. Will monitor weight, labs, skin, diet orders, meds every Wednesday and Wednesday. . Original Note: ICU Rounding Note: Pt current nutrition is Vital AF 1.2 @ 50 ml/h goal rate ON HOLD. Nutrition recommendation: Resume tube feeding at trickle rate 20 ml/h to establish tolerance Last recorded weight is 139.4 kg. Bowel Motility: +1 Bm today 05/08/24 Labs Reviewed: GFR 39, BUn 70, cre 1.34, Glu 159, Mag 2.6 Meds Noted: reglan, No sedation, Lasix, lantus, miralax Skin: Bruising to legs Additional Notes: Tube feeding was held due to higher residuals and nausea. Reglan started. Tube feeding to resume today at trickle rate and advance as tolerated. Following daily in ICU rounds. Will monitor weight, labs, skin, diet orders, meds every Wednesday and Wednesday. .
[2024-05-08] MEDS: FUROSEMIDE INJ 40 MG/4 ML VIAL IV PUSH (10:49)
[2024-05-08] MEDS: METOCLOPRAMIDE HCL INJ 10 MG/2 ML VIAL IV PUSH ×2 (10:49→18:52)
[2024-05-08 11:52] LABS: Glucose Point of Care 134 mg/dl (65-105)
[2024-05-08 18:41] LABS: Glucose Point of Care 110 mg/dl (65-105)
[2024-05-08] MEDS: SENNA/DOCUSATE SODIUM TABLET 1 TAB PO (20:46)
[2024-05-09] VITALS (42 sets, daily range): BP systolic 107–173; BP diastolic 62–132; PULSE 79–109; RESP 22–32; TEMP 37.2–37.8; O2SAT 93–98
[2024-05-09 00:05] LABS: Glucose Point of Care 125 mg/dl (65-105)
[2024-05-09] MEDS: METOCLOPRAMIDE HCL INJ 10 MG/2 ML VIAL IV PUSH ×3 (00:07→11:46)
[2024-05-09] MEDS: hydrALAZINE HCL 20 MG/ML VIAL 10 MG IV PUSH ×2 (00:20→20:22)
[2024-05-09] MEDS: LEVALBUTEROL NEB 1.25 MG/3 ML INHALATION ×4 (02:18→20:58)
[2024-05-09] MEDS: IPRATROPIUM BR 0.02% INH SOLN 0.5 MG/2.5 ML VIAL INHALATION ×4 (02:18→20:58)
[2024-05-09] MEDS: dexmedeTOMIDine 400 MCG/100 ML 400 MCG/100 ML BAG 7.04 MCG IV CONT (02:53)
[2024-05-09 05:08] LABS: Alveolar/Arterial O2 Gradient 89.5 mmHg; Base Excess ABG -0.4 mEq/l (+/-2.0); Carboxyhemoglobin 0.9 % THb (0-2.0); Device VENTILATOR; Fractional Inspired Oxygen 28 %; HCO3 ABG 23.1 mEq/l (22.0-26.0); Methemoglobin ABG 0.3 %THb (0-1.5); Modified Allen's Test Unable to perform; Oxygen Content ABG 16.8 %vol (16.0-22.0); Oxygen Saturation ABG 94.8 % (95.0-100.0); Oxyhemoglobin 93.8 % THb (90.0-100.0); PCO2 ABG 34.3 mmHg (35.0-45.0); PO2 ABG 69.7 mmHg (80.0-100.0); PO2 FiO2 Ratio Arterial Blood 2.49 %; Site Drawn RIGHT RADIAL; Total Hemoglobin 12.7 g/dL (12.0-18.0); pH ABG 7.446 (7.350-7.450)
[2024-05-09 05:09] LABS: Arterial Blood Gas PEEP 8 cmH2O; Arterial Blood Gas Tidal Volume 390 ml; Arterial Blood Gas Vent Mode CMV; Arterial Blood Gas Ventilator rate 24 /MIN
[2024-05-09] MEDS: CENTRAL LINE FLUSH 10 ML IV PUSH ×3 (05:48→20:21)
[2024-05-09] MEDS: CEFEPIME 2 GM/NS 50 ML 2 GM/50 ML BAG IVPB ×2 (05:48→18:06)
[2024-05-09 05:51] LABS: Basophils Percent Auto 0.1 % (0.2-1.2); Eosinophils Percent Auto 0.1 % (0-4.4); Hemoglobin 12.1 g/dL (12.0-15.0); Immature Granulocyte Absolute 0.05 K/mm3 (0.00-0.031); Immature Granulocyte Percent A 0.5 % (0-0.5); Immature Platelet Fraction Pct 5.1 % (0.9-11.2); Lymphocytes Absolute Auto 0.73 K/mm3 (0.9-3.2); Lymphocytes Percent Auto 7.8 % (18.3-44.2); Mean Corpuscular HGB Conc 31.8 g/dl (32-36); Mean Corpuscular Hemoglobin 29.2 pg (26-34); Mean Corpuscular Volume 91.8 fl (80-100); Mean Platelet Volume 11.3 fl (7.4-10.4); Monocytes Absolute Auto 0.7 K/mm3 (0.1-0.6); Monocytes Percent Auto 7.2 % (2.6-8.5); Neutrophils Absolute Auto 7.9 K/mm3 (1.3-6.7); Neutrophils Percent Auto 84.3 % (45.5-73.1); Platelet Count Result 91 k/mm3 (150-375); Red Blood Count 4.14 M/mm3 (4.2-5.4); Red Cell Distribution Width 14.6 % (11.5-14.5); White Blood Count 9.4 K/mm3 (4.5-10.0)
[2024-05-09 06:00] LABS: Alanine Aminotransferase 57 U/L (6-35); Albumin Level 3.4 g/dL (3.5-5.1); Alkaline Phosphatase 59 U/L (38-126); Anion Gap 6 mmol/L (4-12); Aspartate Amino Transferase 31 U/L (14-36); Bilirubin,Total 1.1 mg/dL (0.2-1.3); Blood Urea Nitrogen 65 mg/dL (7-17); Calcium 9.6 mg/dL (8.4-10.2); Carbon Dioxide 25 mmol/L (22-30); Chloride 107 mmol/L (98-107); Estimated CRCL calculation 57 ml/min; Estimated Glomerular Filt Rate 47; Glucose 169 mg/dL (65-110); Magnesium 2.5 mg/dL (1.6-2.3); Phosphorus 3.1 mg/dL (2.5-4.5); Potassium 4.3 mmol/L (3.4-5.0); Sodium 138 mmol/L (137-145)
[2024-05-09 06:01] LABS: Lactic Acid Reflex 0.7 mmol/L (0.7-2.0)
[2024-05-09] MEDS: METOPROLOL TARTRATE 25 MG TABLET PO ×2 (08:40→20:21)
[2024-05-09] MEDS: APIXABAN 5 MG TABLET PO ×2 (08:40→20:20)
[2024-05-09] MEDS: PANTOPRAZOLE SODIUM IV 40 MG VIAL IV PUSH (08:40)
[2024-05-09] MEDS: FUROSEMIDE INJ 40 MG/4 ML VIAL IV PUSH (08:40)
[2024-05-09] MEDS: ASPIRIN 81 MG ENTERIC TABLET PO (08:40)
[2024-05-09] MEDS: amLODIPine BESYLATE 10 MG TABLET PO (08:40)
[2024-05-09] MEDS: MINERAL OIL/WHITE PETROLATUM OINTMENT 1 APPLIC EACH EYE ×2 (08:41→20:21)
--- NOTE | 2024-05-09 09:33 | WPDINTPN ---
Progress Note: A&P Assessment and Plan (1) Acute hypercapnic respiratory failure: Code(s): J96.02 - Acute respiratory failure with hypercapnia Status: Acute Assessment and Plan: Acute hypercapnic respiratory failure despite being on BiPAP, patient had altered mental status, hallucinations with worsening ABGs, patient is a smoker, will have packet per day for many years per daughter, no formal diagnosis of COPD but given her hypercapnic respiratory failure, patient may have COPD and may benefit from pulmonary consult as outpatient -intubated on in the early hours of 05/04/2024 -currently on CMV mode of ventilation, -likely related to pneumonia secondary to influenza -continue Xopenex and Atrovent nebulizer since patient had AFib RVR on admission -status post 5 day course of azithromycin, -05/05: Vancomycin discontinue, MRSA screen negative -status post Solu-Medrol -continue cefepime (05/05) -continue fentanyl and Versed infusion, maintain RASS of 0 to -2, daily sedation vacation 05/08: Chest X ray shows bilateral infiltrates, pneumonia versus pulmonary edema, patient is positive fluid balance, will diurese with Lasix x1-with adequate diuresis 05/09: Chest x-ray and ABGs, will diurese again today. White count has normalized, patient is afebrile (2) Influenza: Code(s): J11.1 - Influenza due to unidentified influenza virus with other respiratory manifestations Status: Acute Assessment and Plan: Influenza A positive, completed the 5 day course of Tamiflu (3) PNA (pneumonia): Qualifiers: Pneumonia type: due to influenza A virus Qualified Code(s): J10.00 - Influenza due to other identified influenza virus with unspecified type of pneumonia Code(s): J18.9 - Pneumonia, unspecified organism Status: Acute Assessment and Plan: Pneumonia likely related to influenza/community-acquired -continue antibiotics as above -currently on mechanical ventilation (4) UTI (urinary tract infection): Qualifiers: Urinary tract infection type: acute cystitis Hematuria presence: without hematuria Qualified Code(s): N30.00 - Acute cystitis without hematuria Code(s): N39.0 - Urinary tract infection, site not specified Status: Acute Assessment and Plan: Urinalysis reflective UTI -continue antibiotics as above -05/03: urine cultures growing E coli, pansensitive (5) Atrial fibrillation with RVR: Code(s): I48.91 - Unspecified atrial fibrillation Status: Acute Assessment and Plan: AFib RVR on admission, initially was started on heparin infusion and diltiazem infusion, which were later discontinued -heart rate better controlled, patient was dropping her heart rates in the 60s with diltiazem infusion was stopped -continue to monitor -continue home Eliquis and metoprolol and discontinue heparin infusion (6) Type 2 diabetes mellitus with hyperglycemia: Qualifiers: Diabetes mellitus group home insulin use: with group home use Qualified Code(s): E11.65 - Type 2 diabetes mellitus with hyperglycemia; Z79.4 - detention (current) use of insulin Code(s): E11.65 - Type 2 diabetes mellitus with hyperglycemia Status: Chronic Assessment and Plan: Accu-Cheks and sliding scale insulin -hyperglycemia could be related to steroids, -hold Lantus, initially patient was not tolerating tube feeds and tube feeds were on hold, now tube feeds have been restarted and gradually increasing to goal, will monitor blood sugars -weaning steroids to off -now on Glucerna tube feeds (7) Fall: Code(s): W19.XXXA - Unspecified fall, initial encounter Status: Acute Assessment and Plan: Patient status post fall at home with contusion to the left eye CT head did not show any acute intracranial hemorrhage or suspicious mass effect, left frontal scalp hematoma without underlying fracture CT cervical spine: Straightening of the normal curvature of the cervical spine, likely muscular in origin. Degenerative disease, without acute fracture. CT chest abdomen pelvis: No acute evidence of traumatic injury Patient will require PT/OT when she is extubated (8) Essential hypertension: Code(s): I10 - Essential (primary) hypertension Status: Chronic Assessment and Plan: Patient intubated and sedated, blood pressures remained stable, -hold home lisinopril since decreased urine output and increase in creatinine -continue amlodipine and metoprolol. Plan DVT prophylaxis: Apixaban Stress ulcer prophylaxis: Protonix Nutrition: Continues tube feeds, continue MiraLax p.r.n. and senna Code Status: Full code Critical Care Time Spent: 32 minutes Discussed with family and updated them with her condition and plan of care. Due to a high probability of clinically significant, life threatening deterioration, the patient required my highest level of preparedness to intervene emergently and I personally spent this critical care time directly and personally managing the patient. This critical care time included obtaining a history; examining the patient; pulse oximetry; ordering and review of studies; arranging urgent treatment with development of a management plan; evaluation of patient's response to treatment; frequent reassessment; and discussions with other providers. It was exclusive of separately billable procedures and treating other patients and teaching time. Please see Assessment and Plan section and the rest of the note for further information on patient assessment and treatment This dictation may have been done utilizing a voice recognition system. Attempts have been made to correct errors. However, there may be uncorrected grammatical, spelling, and recognitions errors present. Subjective Date/time seen: 05/09/24 09:33 Interval history: Reason for consult: Acute hypercapnic respiratory failure, fall, contusion to left eye, fatigue, shortness of breath, generalized weakness, influenza A positive 05/09/2024: Patient seen and examined the ICU, remains intubated on CMV mode of ventilation, peep of 8, 28% FiO2. Remains on Precedex infusion, opens her eyes, follows simple commands in all extremities. Hemodynamically stable, urine output has been adequate, afebrile. Tolerating tube feeds, positive bowel movements, remains in AFib but rate controlled 05/08/2024: Patient seen and examined the ICU, remains intubated on CMV mode of ventilation, peep of 8, 28% FiO2. Off all sedation, patient opens eyes and follows simple commands. Hemodynamically stable, good urine output in response to diuresis, creatinine improving. Patient has not been tolerating her tube feeds, has had multiple episodes of emesis. Remains in AFib, rate controlled. Review of Systems Review of Systems: ROS unobtainable: Yes unobtainable due to endotracheal tube and unobtainable due to medical condition Exam Narrative: General: Intubated and sedated, in no acute distress HEENT:? Right pupil is reactive, left periorbital hematoma, ecchymosis and swelling, swelling of the left eye decreasing, able to open the eye, chemosis, left pupil also reactive to light, ETT in place Neck:? Supple Respiratory:? Coarse breath sounds bilaterally, rales right > left. No wheezing, adequate air entry Cardiac:? Irregularly irregular, rate controlled Abdomen:? Soft, nontender, obese, hypoactive bowel sounds Extremities:? Bilateral lower extremity edema improving, palpable pedal pulses Neuro:? Patient is intubated, off sedation, opens eyes, follows simple commands in all extremities Skin:? [place] skin, dry, erythematous, not warm. Psych:? Unable to assess at this time Objective Data Vital Signs Vital Signs: Vital Signs - 24 hr 05/08/24 10:00 05/08/24 10:00 05/08/24 10:16 Temperature 98.5 F Pulse Rate 90 81 82 Respiratory Rate 24 H Blood Pressure 120/74 Pulse Oximetry 97 100 Oxygen Delivery Mechanical Ventilation Fraction of Inspired Oxygen 05/08/24 12:00 05/08/24 12:00 05/08/24 12:00 Temperature 98.9 F Pulse Rate 84 96 96 Respiratory Rate 16 25 H Blood Pressure 150/92 H Pulse Oximetry 97 96 Oxygen Delivery Mechanical Ventilation Fraction of Inspired Oxygen 05/08/24 12:00 05/08/24 13:59 05/08/24 13:59 Temperature Pulse Rate 100 100 Respiratory Rate 24 H Blood Pressure Pulse Oximetry 98 Oxygen Delivery Mechanical Ventilation Fraction of Inspired Oxygen 05/08/24 14:00 05/08/24 14:00 05/08/24 14:14 Temperature 99.6 F Pulse Rate 96 85 83 Respiratory Rate 25 H 24 H Blood Pressure 150/90 H Pulse Oximetry 96 Oxygen Delivery Fraction of Inspired Oxygen 05/08/24 16:00 05/08/24 16:00 05/08/24 16:00 Temperature 99.9 F H Pulse Rate 97 100 89 Respiratory Rate 24 H 24 H Blood Pressure 149/101 H Pulse Oximetry 97 97 Oxygen Delivery Mechanical Ventilation Fraction of Inspired Oxygen 05/08/24 16:00 05/08/24 16:55 05/08/24 18:00 Temperature Pulse Rate 100 87 Respiratory Rate Blood Pressure Pulse Oximetry 97 Oxygen Delivery Mechanical Ventilation Fraction of Inspired Oxygen 28 05/08/24 18:00 05/08/24 20:00 05/08/24 20:00 Temperature Pulse Rate 85 102 H Respiratory Rate 13 Blood Pressure 142/94 H Pulse Oximetry 100 95 Oxygen Delivery Mechanical Ventilation Fraction of Inspired Oxygen 05/08/24 20:00 05/08/24 20:00 05/08/24 20:05 Temperature 100.2 F H Pulse Rate 102 H 101 H Respiratory Rate 24 H Blood Pressure 164/94 H Pulse Oximetry 95 97 Oxygen Delivery Mechanical Ventilation Fraction of Inspired Oxygen 28 05/08/24 20:46 05/08/24 21:09 05/08/24 21:16 Temperature Pulse Rate 105 H 118 H 106 H Respiratory Rate 25 H 24 H Blood Pressure Pulse Oximetry Oxygen Delivery Fraction of Inspired Oxygen 05/08/24 22:00 05/08/24 22:00 05/08/24 23:11 Temperature 100.2 F H Pulse Rate 94 94 97 Respiratory Rate 24 H Blood Pressure 141/87 H Pulse Oximetry 95 95 Oxygen Delivery Mechanical Ventilation Fraction of Inspired Oxygen 28 05/09/24 00:00 05/09/24 00:00 05/09/24 00:00 Temperature Pulse Rate 83 Respiratory Rate Blood Pressure Pulse Oximetry 95 Oxygen Delivery Mechanical Ventilation Fraction of Inspired Oxygen 28 05/09/24 00:00 05/09/24 02:00 05/09/24 02:00 Temperature 100.1 F H 100.1 F H Pulse Rate 83 105 H 109 H Respiratory Rate 24 H 29 H Blood Pressure 160/95 H 153/88 H Pulse Oximetry 95 94 Oxygen Delivery Fraction of Inspired Oxygen 05/09/24 02:18 05/09/24 02:18 05/09/24 02:26 Temperature Pulse Rate 105 H 100 100 Respiratory Rate 26 H 26 H Blood Pressure Pulse Oximetry 95 Oxygen Delivery Mechanical Ventilation Fraction of Inspired Oxygen 28 05/09/24 02:53 05/09/24 03:30 05/09/24 04:00 Temperature Pulse Rate 101 H 96 Respiratory Rate 29 H 27 H Blood Pressure Pulse Oximetry 93 Oxygen Delivery Mechanical Ventilation Fraction of Inspired Oxygen 28 05/09/24 04:00 05/09/24 04:00 05/09/24 04:00 Temperature 99.6 F Pulse Rate 108 H 108 H Respiratory Rate 24 H Blood Pressure 107/62 Pulse Oximetry 93 Oxygen Delivery Fraction of Inspired Oxygen 28 05/09/24 04:24 05/09/24 04:54 05/09/24 05:56 Temperature Pulse Rate 86 85 83 Respiratory Rate 24 H 24 H Blood Pressure Pulse Oximetry 95 Oxygen Delivery Mechanical Ventilation Fraction of Inspired Oxygen 28 05/09/24 06:00 05/09/24 06:00 05/09/24 07:46 Temperature 99.2 F Pulse Rate 85 85 85 Respiratory Rate 24 H 24 H Blood Pressure 128/80 Pulse Oximetry 96 96 Oxygen Delivery Mechanical Ventilation Fraction of Inspired Oxygen 28 02/11/25 08:00 05/09/24 08:00 05/09/24 08:00 Temperature 99.7 F H Pulse Rate 79 100 Respiratory Rate 22 H Blood Pressure 152/132 H Pulse Oximetry 96 Oxygen Delivery Fraction of Inspired Oxygen 05/09/24 08:00 05/09/24 08:16 05/09/24 08:17 Temperature Pulse Rate 85 81 88 Respiratory Rate 22 H 24 H Blood Pressure Pulse Oximetry 95 Oxygen Delivery Mechanical Ventilation Fraction of Inspired Oxygen 05/09/24 08:33 05/09/24 08:40 Temperature Pulse Rate 96 85 Respiratory Rate 24 H Blood Pressure Pulse Oximetry Oxygen Delivery Fraction of Inspired Oxygen Intake/Output Intake/Output: Intake & Output 05/06/24 05/07/24 05/08/24 05/09/24 23:59 23:59 23:59 23:59 Intake Total 2137.3 2395.0 1060 592.5 Output Total 1325 600 840 900 Balance 812.3 1795.0 220 -307.5 Meds/Results Medications: Active Medications Generic Name Dose Route Start Last Admin Trade Name Freq PRN Reason Stop Dose Admin Acetaminophen 650 mg 05/03/24 22:58 Acetaminophen 325 Mg Tablet PO Q6H PRN Mild Pain (1-3) or Fever Amlodipine Besylate 10 mg 05/06/24 09:50 05/09/24 08:40 Amlodipine Besylate 10 Mg Tablet PO 10 mg DAILY JR Administration Apixaban 5 mg 05/05/24 09:00 05/09/24 08:40 Apixaban 5 Mg Tablet PO 5 mg Q12HR JR Administration Aspirin 81 mg 05/04/24 09:00 05/09/24 08:40 Aspirin 81 Mg Enteric Tablet PO 81 mg DAILY JR Administration Benzocaine 1 lozenge 05/03/24 22:58 Benzocaine/Menthol (*Bkc) 18 Ea Lozenge PO PRN PRN Sore Throat Benzonatate 100 mg 05/03/24 22:58 Benzonatate 100 Mg Capsule PO TID PRN Cough Dextrose 12.5 gm 05/03/24 23:00 Dextrose 50% 25 Gm/50 Ml Syringe IV PUSH PRN PRN Hypoglycemia Protocol Glucagon 1 mg 05/03/24 23:00 Glucagon For Inj 1 Mg Vial IM PRN PRN Hypoglycemia Protocol Glucose 15 gm 05/03/24 23:00 Glucose Oral Gel 15 Gm Of Glucse In 37.5 Gm Tube PO PRN PRN Hypoglycemia Protocol Hydralazine HCl 10 mg 05/06/24 15:04 05/09/24 00:20 Hydralazine Hcl 20 Mg/Ml Vial IV PUSH 10 mg Q4H PRN Administration Blood Pressure - High Dextrose 1,000 mls @ 100 mls/hr 05/03/24 23:00 Dextrose 5% 1,000 Ml IVPB PRN PRN Hypoglycemia Protocol Cefepime HCl 2 gm in 50 mls @ 100 mls/hr 05/05/24 18:00 05/09/24 05:48 Maxipime 2 Gm/Ns 50 Ml IVPB 100 mls/hr Q12H JR Administration Dexmedetomidine HCl 400 mcg in 100 mls @ 7.04 mls/hr 05/07/24 12:25 05/09/24 08:00 Precedex 400 Mcg/100 Ml IV CONT 0.2 mcg/kg/hr .[id number] JR 7.04 mls/hr Titration Protocol 0.2 MCG/KG/HR Insulin Aspart 4 - 8 units 05/07/24 18:00 05/09/24 06:03 Insulin Aspart (*Bkc) 100 Units/Ml SUB-Q Not Given Q6H JR Protocol Insulin Glargine 65 units 05/07/24 21:00 05/08/24 20:49 Insulin Glargine (*Bkc) 100 Units/Ml SUB-Q Not Given HS JR Ipratropium [place] 0.5 mg 05/04/24 14:00 05/09/24 08:15 Ipratropium Br 0.02% Inh Soln 0.5 Mg/2.5 Ml Vial INHALATION 0.5 mg Q6HRT JR Administration Levalbuterol HCl 1.25 mg 05/04/24 14:00 05/09/24 08:15 Levalbuterol Neb 1.25 Mg/3 Ml INHALATION 1.25 mg Q6HRT JR Administration Metoclopramide HCl 10 mg 05/08/24 09:20 05/09/24 05:48 Metoclopramide Hcl Inj 10 Mg/2 Ml Vial IV PUSH 05/09/24 12:01 10 mg Q6HR JR Administration Metoprolol Tartrate 25 mg 05/05/24 09:00 05/09/24 08:40 Metoprolol Tartrate 25 Mg Tablet PO 25 mg Q12HR JR Administration Midazolam HCl 2 mg 05/04/24 05:14 05/04/24 05:56 Midazolam Hcl (*Crx) 2 Mg/2 Ml Vial IV PUSH 2 mg Q5M PRN Administration ventilator asynchrony Midazolam HCl 2 mg 05/09/24 02:49 Midazolam Hcl (*Crx) 2 Mg/2 Ml Vial IV PUSH Q2H PRN Sedation Multi-Ingred Cream/Lotion/Oil/Oint 1 applic 05/04/24 09:00 05/09/24 08:41 Mineral Oil/White Petrolatum Ointment EACH EYE 1 applic Q12HR JR Administration Ondansetron HCl 4 mg 05/04/24 03:23 05/07/24 23:35 Ondansetron Inj 4 Mg/2 Ml Vial IV PUSH 4 mg Q6H PRN Administration Nausea And Vomiting Pantoprazole Sodium 40 mg 05/04/24 09:00 05/09/24 08:40 Pantoprazole Sodium Iv 40 Mg Vial IV PUSH 40 mg DAILY JR Administration Polyethylene Glycol 17 gm 05/05/24 09:00 05/09/24 08:41 Polyethylene Glycol 3350 17 Gm Powd.Pack PO Not Given QAM JR Senna/Docusate Sodium 1 tab 05/05/24 21:00 05/08/24 20:46 Senna/Docusate Sodium Tablet PO 1 tab HS JR Administration Sodium Chloride 10 ml 05/04/24 22:00 05/09/24 05:48 Central Line Flush IV PUSH 10 ml Q8HR JR Administration Sodium Chloride 10 ml 05/04/24 14:16 Central Line Flush IV PUSH PRN PRN with TPN bag changes Sodium Chloride 20 ml 05/04/24 14:16 05/08/24 05:23 Central Line Flush IV PUSH 20 ml PRN PRN Administration after blood draws Radiology Results: ITS Impressions Head CT 05/03/24 19:02 Impression: No acute intracranial hemorrhage or suspicious mass effect. Left frontal scalp hematoma without underlying fracture. Cervical Spine CT 05/03/24 19:08 Impression: Straightening of the normal curvature of the cervical spine, likely muscular in origin. Degenerative disease, without acute fracture. Chest/Abdomen/Pelvis CT 05/03/24 19:11 IMPRESSION: No cross-sectional imaging evidence of acute traumatic injury. Innumerable nonacute findings, as detailed above. Renal Ultrasound 05/05/24 08:23 IMPRESSION: 1. Normal kidneys. No hydronephrosis. Abdomen X-Ray 05/08/24 08:26 IMPRESSION: 1. No free intraperitoneal gas or dilated gas-filled loops of bowel to suggest obstruction. 2. Bilateral airspace opacities consistent with atelectasis or pneumonia. Chest X-Ray 05/09/24 06:37 Impression: Extensive patchy airspace disease and minimal right pleural effusion are unchanged. Correlate for pulmonary edema/atelectasis versus pneumonia. Stable support tubes. Labs Labs: Laboratory Results - last 24 hr 05/08/24 05/08/24 05/09/24 11:37 18:08 00:03 WBC RBC Hgb Hct MCV MCH MCHC RDW Plt Count MPV Immature Gran % (Auto) Neut % (Auto) Lymph % (Auto) [place] % (Auto) Eos % (Auto) Baso % (Auto) Lymph # (Auto) [place] # (Auto) Eos # (Auto) Baso # (Auto) Abs Immat Gran (auto) Absolute Neuts (auto) Absolute Nucleated RBC Nucleated RBC % % Immature Plt Fraction Puncture Site ABG pH ABG pCO2 ABG pO2 ABG PO2/FiO2 Ratio ABG HCO3 ABG O2 Saturation ABG O2 Content ABG Base Excess A-a Gradient Oxyhemoglobin Carboxyhemoglobin Methemoglobin Reduced Hemoglobin Total Hemoglobin O2 Delivery Device O2 Liters/Min Minute Volume Vent Rate Vent Mode FiO2 Tidal Volume PEEP Peak Inspir Pressure Pressure Support Sodium Potassium Chloride Carbon Dioxide Anion Gap BUN Creatinine Estim Creat Clear Calc Estimated GFR Glucose POC Capillary Glucose 134 H 110 H 125 H Lactic Acid Calcium Phosphorus Magnesium Total Bilirubin AST ALT Alkaline Phosphatase Total Protein Albumin 05/09/24 05/09/24 04:58 05:39 WBC 9.4 RBC 4.14 L Hgb 12.1 Hct 38.0 MCV 91.8 MCH 29.2 MCHC 31.8 L RDW 14.6 H Plt Count 91 L MPV 11.3 H Immature Gran % (Auto) 0.5 Neut % (Auto) 84.3 H Lymph % (Auto) 7.8 L [place] % (Auto) 7.2 Eos % (Auto) 0.1 Baso % (Auto) 0.1 L Lymph # (Auto) 0.73 L [place] # (Auto) 0.7 H Eos # (Auto) 0.0 Baso # (Auto) 0.0 Abs Immat Gran (auto) 0.05 H Absolute Neuts (auto) 7.9 H Absolute Nucleated RBC 0.000 Nucleated RBC % 0.0 % Immature Plt Fraction 5.1 Puncture Site Right radial ABG pH 7.446 ABG pCO2 34.3 L ABG pO2 69.7 L ABG PO2/FiO2 Ratio 2.49 ABG HCO3 23.1 ABG O2 Saturation 94.8 L ABG O2 Content 16.8 ABG Base Excess -0.4 A-a Gradient 89.5 Oxyhemoglobin 93.8 Carboxyhemoglobin 0.9 Methemoglobin 0.3 Reduced Hemoglobin 5.0 Total Hemoglobin 12.7 O2 Delivery Device Ventilator O2 Liters/Min Not Reportable Minute Volume Not Reportable Vent Rate 24 Vent Mode Cmv FiO2 28 Tidal Volume 390 PEEP 8 Peak Inspir Pressure Not Reportable Pressure Support Not Reportable Sodium 138 Potassium 4.3 Chloride 107 Carbon Dioxide 25 Anion Gap 6 BUN 65 H Creatinine 1.13 H Estim Creat Clear Calc 57 Estimated GFR 47 L Glucose 169 H POC Capillary Glucose Lactic Acid 0.7 Calcium 9.6 Phosphorus 3.1 Magnesium 2.5 H Total Bilirubin 1.1 AST 31 ALT 57 H Alkaline Phosphatase 59 Total Protein 6.0 L Albumin 3.4 L Quality VTE Prophylaxis VTE prophylaxis: pharmacologic ordered
--- NOTE | 2024-05-09 11:01 | PCNFU ---
Addendum entered by Elana Fontanez RD, LDN 05/10/24 10:55: formula changed to Glucerna 1.2 on 05/07 from Vital AF 1.2. Original Note: Nutrition Follow-Up Complete: Suboptimal Energy Intake as related to mechanical ventilation as evidenced by NPO. Goal: Meet estimated nutritional needs. Patient will continue current goal. Pt current nutrition is Vital AF 1.2 at 50 ml/hr. Last recorded weight is 139.6 kg, up from 138.5 kg on admit. Bowel Motility: +BM reported 05/09 Labs Reviewed: Mg 2.5, Glu 169, BUN 65, GFR 47, Alb 3.4 Meds Noted: Heparin, NovoLog, Cefepime, Lantus, Miralax, Reglan, Precedex. Skin: WNL Additional Notes: Patient remains on mechanical vent. Tube feedings are being tolerated now of Vital AF 1.2 at 50 ml/hr with plans to get to goal rate of 60 ml/hr today. Meeting 100% caloric needs at 11kcal/kg. Flush 30 ml q 4 hours. Agree with diet orders. Will monitor weight, labs, skin, diet orders, meds every Wednesday and Wednesday.
[2024-05-09 11:42] LABS: Glucose Point of Care 226 mg/dl (65-105)
[2024-05-09] MEDS: INSULIN ASPART (*BKC) 100 UNITS/ML SUB-Q ×2 (11:46→18:08)
[2024-05-09] MEDS: dexmedeTOMIDine 400 MCG/100 ML 400 MCG/100 ML BAG 10.56 MCG IV CONT (13:15)
[2024-05-09 18:16] LABS: Glucose Point of Care 266 mg/dl (65-105)
[2024-05-09] MEDS: SENNA/DOCUSATE SODIUM TABLET 1 TAB PO (20:20)
[2024-05-09] MEDS: dexmedeTOMIDine 400 MCG/100 ML 400 MCG/100 ML BAG 17.6 MCG IV CONT (20:45)
[2024-05-10] VITALS (35 sets, daily range): BP systolic 132–151; BP diastolic 77–95; PULSE 73–93; RESP 17–30; TEMP 36.8–37.4; O2SAT 95–98
[2024-05-10 00:15] LABS: Glucose Point of Care 285 mg/dl (65-105)
[2024-05-10] MEDS: INSULIN ASPART (*BKC) 100 UNITS/ML SUB-Q ×4 (00:15→18:25)
[2024-05-10] MEDS: MIDAZOLAM HCL (*CRX) 2 MG/2 ML VIAL IV PUSH (00:37)
[2024-05-10] MEDS: dexmedeTOMIDine 400 MCG/100 ML 400 MCG/100 ML BAG 17.6 MCG IV CONT ×3 (02:13→20:16)
[2024-05-10] MEDS: IPRATROPIUM BR 0.02% INH SOLN 0.5 MG/2.5 ML VIAL INHALATION ×4 (02:18→21:04)
[2024-05-10] MEDS: LEVALBUTEROL NEB 1.25 MG/3 ML INHALATION ×4 (02:18→21:05)
[2024-05-10 05:47] LABS: Alveolar/Arterial O2 Gradient 70.9 mmHg; Base Excess ABG -1.2 mEq/l (+/-2.0); Carboxyhemoglobin 0.9 % THb (0-2.0); Fractional Inspired Oxygen 28 %; HCO3 ABG 22.8 mEq/l (22.0-26.0); Methemoglobin ABG 0.3 %THb (0-1.5); Oxygen Content ABG 17.7 %vol (16.0-22.0); Oxygen Saturation ABG 96.8 % (95.0-100.0); Oxyhemoglobin 95.5 % THb (90.0-100.0); PCO2 ABG 35.8 mmHg (35.0-45.0); PO2 ABG 86.5 mmHg (80.0-100.0); PO2 FiO2 Ratio Arterial Blood 3.09 %; Reduced Hemoglobin 3.3 %THb (0-5.0); Total Hemoglobin 13.1 g/dL (12.0-18.0); pH ABG 7.422 (7.350-7.450)
[2024-05-10] MEDS: CEFEPIME 2 GM/NS 50 ML 2 GM/50 ML BAG IVPB ×2 (05:52→18:25)
[2024-05-10] MEDS: CENTRAL LINE FLUSH 10 ML IV PUSH ×3 (05:52→20:18)
[2024-05-10 05:54] LABS: Device VENTILATOR; Modified Allen's Test Pass; Site Drawn RIGHT RADIAL
[2024-05-10 05:55] LABS: Arterial Blood Gas Vent Mode CMV; Arterial Blood Gas Ventilator rate 24 /MIN
[2024-05-10 05:56] LABS: Arterial Blood Gas PEEP 8 cmH2O; Arterial Blood Gas Tidal Volume 340 ml
[2024-05-10 06:04] LABS: Glucose Point of Care 336 mg/dl (65-105)
[2024-05-10 06:07] LABS: Basophils Percent Auto 0.2 % (0.2-1.2); Eosinophils Absolute Auto 0.1 K/mm3 (0-0.3); Hematocrit 38.6 % (37.0-47.0); Hemoglobin 12.2 g/dL (12.0-15.0); Immature Granulocyte Absolute 0.06 K/mm3 (0.00-0.031); Immature Granulocyte Percent A 0.6 % (0-0.5); Lymphocytes Absolute Auto 0.62 K/mm3 (0.9-3.2); Lymphocytes Percent Auto 6.6 % (18.3-44.2); Mean Corpuscular HGB Conc 31.6 g/dl (32-36); Mean Corpuscular Hemoglobin 28.8 pg (26-34); Mean Corpuscular Volume 91.3 fl (80-100); Monocytes Absolute Auto 0.8 K/mm3 (0.1-0.6); Monocytes Percent Auto 8.7 % (2.6-8.5); Neutrophils Absolute Auto 7.8 K/mm3 (1.3-6.7); Neutrophils Percent Auto 82.9 % (45.5-73.1); Platelet Count Result 114 k/mm3 (150-375); Red Blood Count 4.23 M/mm3 (4.2-5.4); Red Cell Distribution Width 14.5 % (11.5-14.5); White Blood Count 9.5 K/mm3 (4.5-10.0)
[2024-05-10 06:18] LABS: Alanine Aminotransferase 46 U/L (6-35); Albumin Level 3.1 g/dL (3.5-5.1); Alkaline Phosphatase 62 U/L (38-126); Anion Gap 6 mmol/L (4-12); Aspartate Amino Transferase 19 U/L (14-36); Blood Urea Nitrogen 62 mg/dL (7-17); Calcium 9.2 mg/dL (8.4-10.2); Carbon Dioxide 27 mmol/L (22-30); Chloride 106 mmol/L (98-107); Estimated CRCL calculation 68 ml/min; Estimated Glomerular Filt Rate 58; Glucose 306 mg/dL (65-110); Magnesium 2.3 mg/dL (1.6-2.3); Phosphorus 3.2 mg/dL (2.5-4.5); Sodium 139 mmol/L (137-145)
[2024-05-10] MEDS: ASPIRIN 81 MG ENTERIC TABLET PO (08:27)
[2024-05-10] MEDS: APIXABAN 5 MG TABLET PO ×2 (08:27→20:17)
[2024-05-10] MEDS: METOPROLOL TARTRATE 25 MG TABLET PO ×2 (08:27→20:17)
[2024-05-10] MEDS: BUMETANIDE INJ 1 MG/4 ML VIAL IV PUSH (08:28)
[2024-05-10] MEDS: amLODIPine BESYLATE 10 MG TABLET PO (08:28)
[2024-05-10] MEDS: PANTOPRAZOLE SODIUM IV 40 MG VIAL IV PUSH (08:28)
[2024-05-10] MEDS: INSULIN GLARGINE (*BKC) 100 UNITS/ML 40 UNITS SUB-Q (08:29)
[2024-05-10] MEDS: dexmedeTOMIDine 400 MCG/100 ML 400 MCG/100 ML BAG 14.08 MCG IV CONT (08:30)
[2024-05-10] MEDS: MINERAL OIL/WHITE PETROLATUM OINTMENT 1 APPLIC EACH EYE ×2 (08:31→20:18)
--- NOTE | 2024-05-10 10:55 | PCFNICU ---
ICU Rounding Note: Pt current nutrition is Glucerna 1.2 at 60 ml/hr. Last recorded weight is 141.7 kg, up from 138.5 kg on admit. Bowel Motility:+BM reported 05/10 Labs Reviewed: Glu 306, BUN 62, GFR 58, Alb 3.1 Meds Noted: Precedex, NovoLog, Reglan, Lantus, Senokot. Skin: WNL Additional Notes: Patient current with mechanical vent. Tube feedings are being tolerated of Glucerna 1.2 at 60 ml/hr. Total Nutrition: 1584 kcal/79 gm protein/1063 ml water. Flush 30 ml q 4 hours. Tube feeding formula change on 05/07. Protein needs are at 48% at 1.2-1.4 gm/kg. Would recommend adding Prosource BID due to limited protein with this particular formula. Following daily in ICU rounds. Will monitor weight, labs, skin, diet orders, meds every Wednesday and Wednesday.
[2024-05-10 11:59] LABS: Glucose Point of Care 307 mg/dl (65-105)
--- NOTE | 2024-05-10 12:15 | P.PNINT_ITS ---
Progress Note: A&P Assessment and Plan (1) Acute hypercapnic respiratory failure: Code(s): J96.02 - Acute respiratory failure with hypercapnia Status: Acute Assessment and Plan: Acute hypercapnic respiratory failure despite being on BiPAP, patient had altered mental status, hallucinations with worsening ABGs, patient is a smoker, will have packet per day for many years per daughter, no formal diagnosis of C OPD but given her hypercapnic respiratory failure, patient may have COPD and may benefit from pulmonary consult as outpatient -intubated on in the early hours of 05/04/2024 -currently on CMV mode of ventilation, -likely related to pneumonia secondary to influenza -continue Xopenex and Atrovent nebulizer since patient had AFib RVR on admission -status post 5 day course of azithromycin, -05/05: Vancomycin discontinue, MRSA screen negative -status post Solu-Medrol -continue cefepime (05/05) -continue fentanyl and Versed infusion, maintain RASS of 0 to -2, daily sedation vacation 05/08: Chest X ray shows bilateral infiltrates, pneumonia versus pulmonary edema, patient is positive fluid balance, will diurese with Lasix x1-with adequate diuresis 05/09: Chest x-ray and ABGs, will diurese again today. White count has normalized, patient is afebrile 05/10: Chest x-ray continues to show extensive bilateral airspace disease consistent with possible pulmonary edema versus pneumonia. Diurese again today. Initially had placed patient on pressure support ventilation 03/05, she was tachycardic and not getting adequate tidal volumes switched to ASV mode, currently tolerating well (2) Influenza: Code(s): J11.1 - Influenza due to unidentified influenza virus with other respiratory manifestations Status: Acute Assessment and Plan: Influenza A positive, completed the 5 day course of Tamiflu (3) PNA (pneumonia): Qualifiers: Pneumonia type: due to influenza A virus Qualified Code(s): J10.00 - Influenza due to other identified influenza virus with unspecified type of pneumonia Code(s): J18.9 - Pneumonia, unspecified organism Status: Acute Assessment and Plan: Pneumonia likely related to influenza/community-acquired -continue antibiotics as above -currently on mechanical ventilation (4) UTI (urinary tract infection): Qualifiers: Urinary tract infection type: acute cystitis Hematuria presence: without hematuria Qualified Code(s): N30.00 - Acute cystitis without hematuria Code(s): N39.0 - Urinary tract infection, site not specified Status: Acute Assessment and Plan: Urinalysis reflective UTI -continue antibiotics as above -05/03: urine cultures growing E coli, pansensitive (5) Atrial fibrillation with RVR: Code(s): I48.91 - Unspecified atrial fibrillation Status: Acute Assessment and Plan: AFib RVR on admission, initially was started on heparin infusion and diltiazem infusion, which were later discontinued -heart rate better controlled, patient was dropping her heart rates in the 60s with diltiazem infusion was stopped -continue to monitor -remains in AFib, rate controlled -continue home Eliquis and metoprolol and discontinue heparin infusion (6) Type 2 diabetes mellitus with hyperglycemia: Qualifiers: Diabetes mellitus fdc insulin use: with long term care pharmacist use Qualified Code(s): E11.65 - Type 2 diabetes mellitus with hyperglycemia; Z79.4 - senior care (current) use of insulin Code(s): E11.65 - Type 2 diabetes mellitus with hyperglycemia Status: Chronic Assessment and Plan: Accu-Cheks and sliding scale insulin -remains hyperglycemic, will restart Lantus -now on Glucerna tube feeds (7) Fall: Code(s): W19.XXXA - Unspecified fall, initial encounter Status: Acute Assessment and Plan: Patient status post fall at home with contusion to the left eye CT head did not show any acute intracranial hemorrhage or suspicious mass effect, left frontal scalp hematoma without underlying fracture CT cervical spine: Straightening of the normal curvature of the cervical spine, likely muscular in origin. Degenerative disease, without acute fracture. CT chest abdomen pelvis: No acute evidence of traumatic injury Patient will require PT/OT when she is extubated (8) Essential hypertension: Code(s): I10 - Essential (primary) hypertension Status: Chronic Assessment and Plan: Patient intubated and sedated, blood pressures remained stable, -hold home lisinopril since decreased urine output and increase in creatinine -continue amlodipine and metoprolol. Plan DVT prophylaxis: Apixaban Stress ulcer prophylaxis: Protonix Nutrition: Continues tube feeds, continue MiraLax p.r.n. and senna Code Status: Full code Critical Care Time Spent: 32 minutes Discussed with family and updated them with her condition and plan of care. Due to a high probability of clinically significant, life threatening deterioration, the patient required my highest level of preparedness to intervene emergently and I personally spent this critical care time directly and personally managing the patient. This critical care time included obtaining a history; examining the patient; pulse oximetry; ordering and review of studies; arranging urgent treatment with development of a management plan; evaluation of patient's response to treatment; frequent reassessment; and discussions with other providers. It was exclusive of separately billable procedures and treating other patients and teaching time. Please see Assessment and Plan section and the rest of the note for further information on patient assessment and treatment This dictation may have been done utilizing a voice recognition system. Attempts have been made to correct errors. However, there may be uncorrected grammatical, spelling, and recognitions errors present. Subjective Date/time seen: 05/10/24 12:15 Interval history: Reason for consult: Acute hypercapnic respiratory failure, fall, contusion to left eye, fatigue, shortness of breath, generalized weakness, influenza A positive 05/10/2024: Patient seen and examined the ICU, remains intubated on CMV mode of ventilation, peep of 8, 28% FiO2. Remains on Precedex infusion, opens her eyes, follows simple commands in all extremities. Hemodynamically stable, urine output has been adequate, afebrile. Tolerating tube feeds, positive bowel movements, remains in AFib but rate controlled Review of Systems Review of Systems: ROS unobtainable: Yes unobtainable due to endotracheal tube and unobtainable due to medical condition Exam Narrative: General: Intubated and sedated, in no acute distress HEENT:? Right pupil is reactive, left periorbital hematoma, ecchymosis and swelling, swelling of the left eye decreasing, able to open the eye, chemosis, left pupil also reactive to light, ETT in place Neck:? Supple Respiratory:? Coarse breath sounds bilaterally, rales right > left. No wheezing, adequate air entry Cardiac:? Irregularly irregular, rate controlled Abdomen:? Soft, nontender, obese, hypoactive bowel sounds Extremities:? Bilateral lower extremity edema improving, palpable pedal pulses Neuro:? Patient is intubated, off sedation, opens eyes, follows simple commands in all extremities Skin:? Acme skin, dry, erythematous, not warm. Psych:? Unable to assess at this time Objective Data Vital Signs Vital Signs: Vital Signs - 24 hr 05/09/24 13:05 05/09/24 13:15 05/09/24 13:15 Temperature Pulse Rate 98 97 97 Respiratory Rate 32 H 30 H 30 H Blood Pressure Pulse Oximetry Oxygen Delivery Fraction of Inspired Oxygen 05/09/24 14:00 05/09/24 14:00 05/09/24 14:31 Temperature 99.6 F Pulse Rate 89 89 85 Respiratory Rate 29 H 27 H Blood Pressure 168/102 H Pulse Oximetry 94 Oxygen Delivery Fraction of Inspired Oxygen 05/09/24 14:33 05/09/24 14:33 05/09/24 14:34 Temperature 99.6 F Pulse Rate 91 89 89 Respiratory Rate 29 H 29 H Blood Pressure 168/102 H Pulse Oximetry 95 94 Oxygen Delivery Mechanical Ventilation Fraction of Inspired Oxygen 05/09/24 14:50 05/09/24 16:00 05/09/24 16:00 Temperature Pulse Rate 85 88 88 Respiratory Rate 24 H 24 H Blood Pressure Pulse Oximetry 97 Oxygen Delivery Mechanical Ventilation Fraction of Inspired Oxygen 05/09/24 16:00 05/09/24 16:00 05/09/24 16:00 Temperature 99.4 F Pulse Rate 85 85 Respiratory Rate 25 H 25 H Blood Pressure 156/95 H Pulse Oximetry 93 Oxygen Delivery Fraction of Inspired Oxygen 05/09/24 16:12 05/09/24 17:15 05/09/24 18:00 Temperature Pulse Rate 88 84 96 Respiratory Rate 24 H Blood Pressure Pulse Oximetry 97 Oxygen Delivery Mechanical Ventilation Fraction of Inspired Oxygen 05/09/24 18:00 05/09/24 19:00 05/09/24 20:00 Temperature 99.7 F H Pulse Rate 85 85 86 Respiratory Rate 24 H 24 H 24 H Blood Pressure 173/93 H Pulse Oximetry 98 94 Oxygen Delivery Mechanical Ventilation Fraction of Inspired Oxygen 05/09/24 20:00 05/09/24 20:00 05/09/24 20:00 Temperature 99.9 F H Pulse Rate 92 93 Respiratory Rate 26 H Blood Pressure 160/86 H Pulse Oximetry 95 Oxygen Delivery Fraction of Inspired Oxygen 05/09/24 20:19 05/09/24 20:21 05/09/24 20:45 Temperature Pulse Rate 88 92 84 Respiratory Rate 27 H 28 H Blood Pressure Pulse Oximetry Oxygen Delivery Fraction of Inspired Oxygen 05/09/24 20:45 05/09/24 20:58 05/09/24 20:58 Temperature Pulse Rate 84 85 81 Respiratory Rate 28 H 24 H Blood Pressure Pulse Oximetry 94 Oxygen Delivery Mechanical Ventilation Fraction of Inspired Oxygen 05/09/24 21:10 05/09/24 22:00 05/09/24 22:00 Temperature Pulse Rate 87 82 84 Respiratory Rate 24 H 24 H Blood Pressure Pulse Oximetry Oxygen Delivery Fraction of Inspired Oxygen 05/09/24 22:00 05/09/24 23:54 05/10/24 00:00 Temperature 99.6 F Pulse Rate 83 87 81 Respiratory Rate 24 H 25 H Blood Pressure 145/76 H Pulse Oximetry 95 95 Oxygen Delivery Mechanical Ventilation Fraction of Inspired Oxygen 05/10/24 00:00 05/10/24 00:00 05/10/24 00:00 Temperature Pulse Rate 81 84 Respiratory Rate 25 H Blood Pressure Pulse Oximetry 95 Oxygen Delivery Mechanical Ventilation Fraction of Inspired Oxygen 05/10/24 00:00 05/10/24 02:00 05/10/24 02:00 Temperature 99.3 F Pulse Rate 81 77 77 Respiratory Rate 25 H 24 H Blood Pressure 149/83 H Pulse Oximetry 95 Oxygen Delivery Fraction of Inspired Oxygen 05/10/24 02:00 05/10/24 02:13 05/10/24 02:13 Temperature 98.7 F Pulse Rate 80 75 75 Respiratory Rate 24 H 24 H 24 H Blood Pressure 147/95 H Pulse Oximetry 96 Oxygen Delivery Fraction of Inspired Oxygen 05/10/24 02:19 05/10/24 02:20 05/10/24 02:27 Temperature Pulse Rate 74 75 82 Respiratory Rate 24 H 24 H Blood Pressure Pulse Oximetry 96 Oxygen Delivery Mechanical Ventilation Fraction of Inspired Oxygen 05/10/24 04:00 05/10/24 04:00 05/10/24 04:00 Temperature Pulse Rate 75 81 Respiratory Rate 26 H 25 H Blood Pressure Pulse Oximetry 95 Oxygen Delivery Mechanical Ventilation Fraction of Inspired Oxygen 05/10/24 04:00 05/10/24 04:00 05/10/24 05:24 Temperature 98.4 F Pulse Rate 81 81 78 Respiratory Rate 24 H Blood Pressure 151/85 H Pulse Oximetry 95 96 Oxygen Delivery Mechanical Ventilation Fraction of Inspired Oxygen 05/10/24 06:00 05/10/24 06:00 05/10/24 06:00 Temperature 98.5 F Pulse Rate 77 77 77 Respiratory Rate 26 H 26 H Blood Pressure 146/81 H Pulse Oximetry 96 Oxygen Delivery Fraction of Inspired Oxygen 05/10/24 08:00 05/10/24 08:00 05/10/24 08:00 Temperature 98.4 F Pulse Rate 73 81 76 Respiratory Rate 30 H 28 H Blood Pressure 135/86 Pulse Oximetry 96 Oxygen Delivery Fraction of Inspired Oxygen 05/10/24 08:00 05/10/24 08:00 05/10/24 08:23 Temperature Pulse Rate 77 Respiratory Rate 24 H Blood Pressure Pulse Oximetry 95 Oxygen Delivery Mechanical Ventilation Fraction of Inspired Oxygen 28 05/10/24 08:27 05/10/24 08:27 05/10/24 08:30 Temperature Pulse Rate 87 73 77 Respiratory Rate 17 24 H Blood Pressure Pulse Oximetry Oxygen Delivery Fraction of Inspired Oxygen 05/10/24 08:40 05/10/24 08:42 05/10/24 08:50 Temperature Pulse Rate 87 84 Respiratory Rate 25 H Blood Pressure Pulse Oximetry 95 Oxygen Delivery Mechanical Ventilation Fraction of Inspired Oxygen 05/10/24 10:00 05/10/24 10:00 05/10/24 10:00 Temperature 98.3 F Pulse Rate 79 84 84 Respiratory Rate 22 H 22 H Blood Pressure 140/83 Pulse Oximetry 95 Oxygen Delivery Fraction of Inspired Oxygen 05/10/24 11:52 05/10/24 12:00 05/10/24 12:00 Temperature 98.6 F Pulse Rate 91 87 Respiratory Rate 30 H 29 H Blood Pressure 148/90 H Pulse Oximetry 95 95 Oxygen Delivery Mechanical Ventilation Fraction of Inspired Oxygen 28 Intake/Output Intake/Output: Intake & Output 05/07/24 05/08/24 05/09/24 05/10/24 23:59 23:59 23:59 23:59 Intake Total 2395.0 1060 1647.0 954.6 Output Total 380 928 4781 650 Balance 1795.0 220 -1253.0 304.6 Meds/Results Medications: Active Medications Generic Name Dose Route Start Last Admin Trade Name Freq PRN Reason Stop Dose Admin Acetaminophen 650 mg 05/03/24 22:58 Acetaminophen 325 Mg Tablet PO Q6H PRN Mild Pain (1-3) or Fever Amlodipine Besylate 10 mg 05/06/24 09:50 05/10/24 08:28 Amlodipine Besylate 10 Mg Tablet PO 10 mg DAILY JR Administration Apixaban 5 mg 05/05/24 09:00 05/10/24 08:27 Apixaban 5 Mg Tablet PO 5 mg Q12HR JR Administration Aspirin 81 mg 05/04/24 09:00 05/10/24 08:27 Aspirin 81 Mg Enteric Tablet PO 81 mg DAILY JR Administration Benzocaine 1 lozenge 05/03/24 22:58 Benzocaine/Menthol (*Bkc) 18 Ea Lozenge PO PRN PRN Sore Throat Benzonatate 100 mg 05/03/24 22:58 Benzonatate 100 Mg Capsule PO TID PRN Cough Dextrose 12.5 gm 05/03/24 23:00 Dextrose 50% 25 Gm/50 Ml Syringe IV PUSH PRN PRN Hypoglycemia Protocol Glucagon 1 mg 05/03/24 23:00 Glucagon For Inj 1 Mg Vial IM PRN PRN Hypoglycemia Protocol Glucose 15 gm 05/03/24 23:00 Glucose Oral Gel 15 Gm Of Glucse In 37.5 Gm Tube PO PRN PRN Hypoglycemia Protocol Hydralazine HCl 10 mg 05/06/24 15:04 05/09/24 20:22 Hydralazine Hcl 20 Mg/Ml Vial IV PUSH 10 mg Q4H PRN Administration Blood Pressure - High Dextrose 1,000 mls @ 100 mls/hr 05/03/24 23:00 Dextrose 5% 1,000 Ml IVPB PRN PRN Hypoglycemia Protocol Cefepime HCl 2 gm in 50 mls @ 100 mls/hr 05/05/24 18:00 05/10/24 06:33 Maxipime 2 Gm/Ns 50 Ml IVPB Infused Q12H JR Infusion Dexmedetomidine HCl 400 mcg in 100 mls @ 17.6 mls/hr 05/07/24 12:25 05/10/24 11:52 Precedex 400 Mcg/100 Ml IV CONT 0.5 mcg/kg/hr .Q5H41M JR 17.6 mls/hr Titration Protocol 0.5 MCG/KG/HR Insulin Aspart 4 - 8 units 05/07/24 18:00 05/10/24 11:53 Insulin Aspart (*Bkc) 100 Units/Ml SUB-Q 6 units Q6H JR Administration Protocol Insulin Glargine 40 units 05/10/24 09:00 05/10/24 08:29 Insulin Glargine (*Bkc) 100 Units/Ml SUB-Q 40 units DAILY JR Administration Ipratropium [place] 0.5 mg 05/04/24 14:00 05/10/24 08:21 Ipratropium Br 0.02% Inh Soln 0.5 Mg/2.5 Ml Vial INHALATION 0.5 mg Q6HRT JR Administration Levalbuterol HCl 1.25 mg 05/04/24 14:00 05/10/24 08:21 Levalbuterol Neb 1.25 Mg/3 Ml INHALATION 1.25 mg Q6HRT JR Administration Metoprolol Tartrate 25 mg 05/05/24 09:00 05/10/24 08:27 Metoprolol Tartrate 25 Mg Tablet PO 25 mg Q12HR JR Administration Midazolam HCl 2 mg 05/04/24 05:14 05/04/24 05:56 Midazolam Hcl (*Crx) 2 Mg/2 Ml Vial IV PUSH 2 mg Q5M PRN Administration ventilator asynchrony Midazolam HCl 2 mg 05/09/24 02:49 05/10/24 00:37 Midazolam Hcl (*Crx) 2 Mg/2 Ml Vial IV PUSH 2 mg Q2H PRN Administration Sedation Multi-Ingred Cream/Lotion/Oil/Oint 1 applic 05/04/24 09:00 05/10/24 08:31 Mineral Oil/White Petrolatum Ointment EACH EYE 1 applic Q12HR JR Administration Ondansetron HCl 4 mg 05/04/24 03:23 05/07/24 23:35 Ondansetron Inj 4 Mg/2 Ml Vial IV PUSH 4 mg Q6H PRN Administration Nausea And Vomiting Pantoprazole Sodium 40 mg 05/04/24 09:00 05/10/24 08:28 Pantoprazole Sodium Iv 40 Mg Vial IV PUSH 40 mg DAILY JR Administration Polyethylene Glycol 17 gm 05/09/24 09:44 Polyethylene Glycol 3350 17 Gm Powd.Pack PO QAM PRN Constipation Senna/Docusate Sodium 1 tab 05/05/24 21:00 05/09/24 20:20 Senna/Docusate Sodium Tablet PO 1 tab HS JR Administration Sodium Chloride 10 ml 05/04/24 22:00 05/10/24 05:52 Central Line Flush IV PUSH 10 ml Q8HR JR Administration Sodium Chloride 10 ml 05/04/24 14:16 Central Line Flush IV PUSH PRN PRN with TPN bag changes Sodium Chloride 20 ml 05/04/24 14:16 05/08/24 05:23 Central Line Flush IV PUSH 20 ml PRN PRN Administration after blood draws Radiology Results: ITS Impressions Head CT 05/03/24 19:02 Impression: No acute intracranial hemorrhage or suspicious mass effect. Left frontal scalp hematoma without underlying fracture. Cervical Spine CT 05/03/24 19:08 Impression: Straightening of the normal curvature of the cervical spine, likely muscular in origin. Degenerative disease, without acute fracture. Chest/Abdomen/Pelvis CT 05/03/24 19:11 IMPRESSION: No cross-sectional imaging evidence of acute traumatic injury. Innumerable nonacute findings, as detailed above. Renal Ultrasound 05/05/24 08:23 IMPRESSION: 1. Normal kidneys. No hydronephrosis. Abdomen X-Ray 05/08/24 08:26 IMPRESSION: 1. No free intraperitoneal gas or dilated gas-filled loops of bowel to suggest obstruction. 2. Bilateral airspace opacities consistent with atelectasis or pneumonia. Chest X-Ray 05/10/24 06:10 Impression: Extensive bilateral airspace disease. Correlate for pulmonary edema versus bilateral pneumonia. Minimal right pleural effusion. Stable support tubes. Labs Labs: Laboratory Results - last 24 hr 05/09/24 05/10/24 05/10/24 18:05 00:12 05:15 WBC RBC Hgb Hct MCV MCH MCHC RDW Plt Count MPV Immature Gran % (Auto) Neut % (Auto) Lymph % (Auto) [place] % (Auto) Eos % (Auto) Baso % (Auto) Lymph # (Auto) [place] # (Auto) Eos # (Auto) Baso # (Auto) Abs Immat Gran (auto) Absolute Neuts (auto) Absolute Nucleated RBC Nucleated RBC % % Immature Plt Fraction Puncture Site Right radial ABG pH 7.422 ABG pCO2 35.8 ABG pO2 86.5 ABG PO2/FiO2 Ratio 3.09 ABG HCO3 22.8 ABG O2 Saturation 96.8 ABG O2 Content 17.7 ABG Base Excess -1.2 A-a Gradient 70.9 Oxyhemoglobin 95.5 Carboxyhemoglobin 0.9 Methemoglobin 0.3 Reduced Hemoglobin 3.3 Total Hemoglobin 13.1 O2 Delivery Device Ventilator O2 Liters/Min Not Reportable Minute Volume Not Reportable Vent Rate 24 Vent Mode Cmv FiO2 28 Tidal Volume 340 PEEP 8 Peak Inspir Pressure Not Reportable Pressure Support Not Reportable Sodium Potassium Chloride Carbon Dioxide Anion Gap BUN Creatinine Estim Creat Clear Calc Estimated GFR Glucose POC Capillary Glucose 266 H 285 H Calcium Phosphorus Magnesium Total Bilirubin AST ALT Alkaline Phosphatase Total Protein Albumin 05/10/24 05/10/24 05/10/24 05:50 05:59 11:38 WBC 9.5 RBC 4.23 Hgb 12.2 Hct 38.6 MCV 91.3 MCH 28.8 MCHC 31.6 L RDW 14.5 Plt Count 114 L MPV 11.0 H Immature Gran % (Auto) 0.6 H Neut % (Auto) 82.9 H Lymph % (Auto) 6.6 L [place] % (Auto) 8.7 H Eos % (Auto) 1.0 Baso % (Auto) 0.2 Lymph # (Auto) 0.62 L [place] # (Auto) 0.8 H Eos # (Auto) 0.1 Baso # (Auto) 0.0 Abs Immat Gran (auto) 0.06 H Absolute Neuts (auto) 7.8 H Absolute Nucleated RBC 0.000 Nucleated RBC % 0.0 % Immature Plt Fraction 5.0 Puncture Site ABG pH ABG pCO2 ABG pO2 ABG PO2/FiO2 Ratio ABG HCO3 ABG O2 Saturation ABG O2 Content ABG Base Excess A-a Gradient Oxyhemoglobin Carboxyhemoglobin Methemoglobin Reduced Hemoglobin Total Hemoglobin O2 Delivery Device O2 Liters/Min Minute Volume Vent Rate Vent Mode FiO2 Tidal Volume PEEP Peak Inspir Pressure Pressure Support Sodium 139 Potassium 4.0 Chloride 106 Carbon Dioxide 27 Anion Gap 6 BUN 62 H Creatinine 0.95 Estim Creat Clear Calc 68 Estimated GFR 58 L Glucose 306 H POC Capillary Glucose 336 H 307 H Calcium 9.2 Phosphorus 3.2 Magnesium 2.3 Total Bilirubin 1.0 AST 19 ALT 46 H Alkaline Phosphatase 62 Total Protein 6.0 L Albumin 3.1 L Quality VTE Prophylaxis VTE prophylaxis: pharmacologic ordered
[2024-05-10 18:39] LABS: Glucose Point of Care 284 mg/dl (65-105)
[2024-05-11] VITALS (36 sets, daily range): BP systolic 134–165; BP diastolic 73–106; PULSE 71–96; RESP 20–34; TEMP 37–37.5; O2SAT 94–98
[2024-05-11 00:12] LABS: Glucose Point of Care 258 mg/dl (65-105)
[2024-05-11] MEDS: INSULIN ASPART (*BKC) 100 UNITS/ML SUB-Q ×4 (00:16→18:10)
[2024-05-11] MEDS: dexmedeTOMIDine 400 MCG/100 ML 400 MCG/100 ML BAG 17.6 MCG IV CONT ×4 (01:29→22:10)
[2024-05-11] MEDS: IPRATROPIUM BR 0.02% INH SOLN 0.5 MG/2.5 ML VIAL INHALATION ×4 (02:48→19:13)
[2024-05-11] MEDS: LEVALBUTEROL NEB 1.25 MG/3 ML INHALATION ×4 (02:48→19:14)
[2024-05-11 05:17] LABS: Alveolar/Arterial O2 Gradient 74.2 mmHg; Base Excess ABG 5.3 mEq/l (+/-2.0); Device VENTILATOR; Fractional Inspired Oxygen 28 %; HCO3 ABG 29.4 mEq/l (22.0-26.0); Methemoglobin ABG 0.3 %THb (0-1.5); Modified Allen's Test Unable to perform; Oxygen Saturation ABG 96.1 % (95.0-100.0); Oxyhemoglobin 94.7 % THb (90.0-100.0); PCO2 ABG 41.1 mmHg (35.0-45.0); PO2 ABG 76.9 mmHg (80.0-100.0); PO2 FiO2 Ratio Arterial Blood 2.75 %; Site Drawn RIGHT RADIAL; Total Hemoglobin 13.5 g/dL (12.0-18.0); pH ABG 7.472 (7.350-7.450)
[2024-05-11 05:18] LABS: Arterial Blood Gas PEEP 8 cmH2O; Arterial Blood Gas Tidal Volume 390 ml; Arterial Blood Gas Vent Mode CMV; Arterial Blood Gas Ventilator rate 24 /MIN
[2024-05-11 05:43] LABS: Basophils Percent Auto 0.2 % (0.2-1.2); Eosinophils Absolute Auto 0.3 K/mm3 (0-0.3); Eosinophils Percent Auto 2.4 % (0-4.4); Hematocrit 39.5 % (37.0-47.0); Hemoglobin 12.4 g/dL (12.0-15.0); Immature Granulocyte Absolute 0.07 K/mm3 (0.00-0.031); Immature Granulocyte Percent A 0.7 % (0-0.5); Lymphocytes Absolute Auto 0.66 K/mm3 (0.9-3.2); Lymphocytes Percent Auto 6.4 % (18.3-44.2); Mean Corpuscular HGB Conc 31.4 g/dl (32-36); Mean Corpuscular Volume 92.3 fl (80-100); Monocytes Absolute Auto 0.8 K/mm3 (0.1-0.6); Monocytes Percent Auto 7.9 % (2.6-8.5); Neutrophils Absolute Auto 8.5 K/mm3 (1.3-6.7); Neutrophils Percent Auto 82.4 % (45.5-73.1); Platelet Count Result 150 k/mm3 (150-375); Red Blood Count 4.28 M/mm3 (4.2-5.4); Red Cell Distribution Width 14.5 % (11.5-14.5); White Blood Count 10.3 K/mm3 (4.5-10.0)
[2024-05-11] MEDS: CENTRAL LINE FLUSH 10 ML IV PUSH ×3 (06:00→19:53)
[2024-05-11] MEDS: CEFEPIME 2 GM/NS 50 ML 2 GM/50 ML BAG IVPB ×2 (06:00→18:03)
[2024-05-11 06:09] LABS: Alanine Aminotransferase 38 U/L (6-35); Albumin Level 3.2 g/dL (3.5-5.1); Alkaline Phosphatase 62 U/L (38-126); Anion Gap 10 mmol/L (4-12); Aspartate Amino Transferase 15 U/L (14-36); Bilirubin,Total 0.9 mg/dL (0.2-1.3); Blood Urea Nitrogen 65 mg/dL (7-17); Calcium 9.4 mg/dL (8.4-10.2); Carbon Dioxide 27 mmol/L (22-30); Chloride 103 mmol/L (98-107); Estimated CRCL calculation 75 ml/min; Estimated Glomerular Filt Rate > 60; Glucose 308 mg/dL (65-110); Magnesium 2.4 mg/dL (1.6-2.3); Potassium 4.2 mmol/L (3.4-5.0); Sodium 140 mmol/L (137-145)
[2024-05-11] MEDS: APIXABAN 5 MG TABLET PO ×2 (09:28→19:52)
[2024-05-11] MEDS: amLODIPine BESYLATE 10 MG TABLET PO (09:28)
[2024-05-11] MEDS: ASPIRIN 81 MG ENTERIC TABLET PO (09:28)
[2024-05-11] MEDS: PANTOPRAZOLE SODIUM IV 40 MG VIAL IV PUSH (09:29)
[2024-05-11] MEDS: lisinopriL 5 MG TABLET PO (09:29)
[2024-05-11] MEDS: MINERAL OIL/WHITE PETROLATUM OINTMENT 1 APPLIC EACH EYE ×2 (09:29→19:53)
[2024-05-11] MEDS: METOPROLOL TARTRATE 25 MG TABLET PO ×2 (09:29→19:53)
[2024-05-11] MEDS: INSULIN GLARGINE (*BKC) 100 UNITS/ML 65 UNITS SUB-Q (09:34)
[2024-05-11] MEDS: BUMETANIDE INJ 1 MG/4 ML VIAL IV PUSH (10:45)
--- NOTE | 2024-05-11 11:09 | PCFNICU ---
ICU Rounding Note: Pt current nutrition is Glucerna 1.2 at 60 ml/hr. Last recorded weight is 140.2 kg, up from 138.5 kg on admit. Bowel Motility: +BM reported 05/10 Labs Reviewed: Mg 2.4, BUN 65, Glu 308, Alb 3.2 Meds Noted: Reglan, NovoLog, Lantus, Senokot, Precedex Skin: WNL Additional Notes: Patient remains on mechanical vent. Tube feedings are being tolerated of Glucerna 1.2 at 60 ml/hr. Protein Modular given of Prosource BID for additional 40 gm protein. Flush 30 ml q 4 hours. Agree with diet orders. Following daily in ICU rounds. Will monitor weight, labs, skin, diet orders, meds every Wednesday and Wednesday.
--- NOTE | 2024-05-11 11:52 | P.PNINT_ITS ---
Progress Note: A&P Assessment and Plan (1) Acute hypercapnic respiratory failure: Code(s): J96.02 - Acute respiratory failure with hypercapnia Status: Acute Assessment and Plan: Acute hypercapnic respiratory failure despite being on BiPAP, patient had altered mental status, hallucinations with worsening ABGs, patient is a smoker, will have packet per day for many years per daughter, no formal diagnosis of C OPD but given her hypercapnic respiratory failure, patient may have COPD and may benefit from pulmonary consult as outpatient -intubated on in the early hours of 05/04/2024 -currently on CMV mode of ventilation, -likely related to pneumonia secondary to influenza -continue Xopenex and Atrovent nebulizer since patient had AFib RVR on admission -status post 5 day course of azithromycin, -05/05: Vancomycin discontinue, MRSA screen negative -status post Solu-Medrol -continue cefepime (05/05) -continue fentanyl and Versed infusion, maintain RASS of 0 to -2, daily sedation vacation 05/08: Chest X ray shows bilateral infiltrates, pneumonia versus pulmonary edema, patient is positive fluid balance, will diurese with Lasix x1-with adequate diuresis 05/09: Chest x-ray and ABGs, will diurese again today. White count has normalized, patient is afebrile 05/10: Chest x-ray continues to show extensive bilateral airspace disease consistent with possible pulmonary edema versus pneumonia. Diurese again today. Initially had placed patient on pressure support ventilation 03/05, she was tachycardic and not getting adequate tidal volumes switched to ASV mode, currently tolerating well 03/10: Patient tolerated ASV mode all day yesterday and was placed back on CMV mode overnight. Diuresed well, creatinine improving. Will diurese again today. Patient remains on Precedex infusion, placed on pressure support ventilation 03/02 I have asked the RT to start decreasing her pressure support to 10/5 and then 8/5. Chest x-ray this morning continues to show patchy bilateral airspace consolidation could be pulmonary edema versus bilateral pneumonia (2) Influenza: Code(s): J11.1 - Influenza due to unidentified influenza virus with other respiratory manifestations Status: Acute Assessment and Plan: Influenza A positive, completed the 5 day course of Tamiflu (3) PNA (pneumonia): Qualifiers: Pneumonia type: due to influenza A virus Qualified Code(s): J10.00 - Influenza due to other identified influenza virus with unspecified type of pneumonia Code(s): J18.9 - Pneumonia, unspecified organism Status: Acute Assessment and Plan: Pneumonia likely related to influenza/community-acquired -continue antibiotics as above -currently on mechanical ventilation (4) UTI (urinary tract infection): Qualifiers: Urinary tract infection type: acute cystitis Hematuria presence: without hematuria Qualified Code(s): N30.00 - Acute cystitis without hematuria Code(s): N39.0 - Urinary tract infection, site not specified Status: Acute Assessment and Plan: Urinalysis reflective UTI -continue antibiotics as above -05/03: urine cultures growing E coli, pansensitive (5) Atrial fibrillation with RVR: Code(s): I48.91 - Unspecified atrial fibrillation Status: Acute Assessment and Plan: AFib RVR on admission, initially was started on heparin infusion and diltiazem infusion, which were later discontinued -heart rate better controlled, patient was dropping her heart rates in the 60s with diltiazem infusion was stopped -continue to monitor -remains in AFib, rate controlled -continue home Eliquis and increase metoprolol (6) Type 2 diabetes mellitus with hyperglycemia: 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 Qualified Code(s): E11.65 - Type 2 diabetes mellitus with hyperglycemia; 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 Code(s): E11.65 - Type 2 diabetes mellitus with hyperglycemia Status: Chronic Assessment and Plan: Accu-Cheks and sliding scale insulin -remains hyperglycemic, increased Lantus -now on Glucerna tube feeds (7) Fall: Code(s): W19.XXXA - Unspecified fall, initial encounter Status: Acute Assessment and Plan: Patient status post fall at home with contusion to the left eye CT head did not show any acute intracranial hemorrhage or suspicious mass effect, left frontal scalp hematoma without underlying fracture CT cervical spine: Straightening of the normal curvature of the cervical spine, likely muscular in origin. Degenerative disease, without acute fracture. CT chest abdomen pelvis: No acute evidence of traumatic injury Patient will require PT/OT when she is extubated (8) Essential hypertension: Code(s): I10 - Essential (primary) hypertension Status: Chronic Assessment and Plan: Patient intubated and sedated, blood pressures remained stable, -continue amlodipine and metoprolol. 03/10: Restarted home lisinopril Plan DVT prophylaxis: Apixaban Stress ulcer prophylaxis: Protonix Nutrition: Continues tube feeds, continue MiraLax p.r.n. and senna Code Status: Full code Critical Care Time Spent: 33 minutes Discussed with family and updated them with her condition and plan of care. Due to a high probability of clinically significant, life threatening deterioration, the patient required my highest level of preparedness to intervene emergently and I personally spent this critical care time directly and personally managing the patient. This critical care time included obtaining a history; examining the patient; pulse oximetry; ordering and review of studies; arranging urgent treatment with development of a management plan; evaluation of patient's response to treatment; frequent reassessment; and discussions with other providers. It was exclusive of separately billable procedures and treating other patients and teaching time. Please see Assessment and Plan section and the rest of the note for further information on patient assessment and treatment This dictation may have been done utilizing a voice recognition system. Attempts have been made to correct errors. However, there may be uncorrected grammatical, spelling, and recognitions errors present. Subjective Date/time seen: 05/11/24 11:52 Interval history: Reason for consult: Acute hypercapnic respiratory failure, fall, contusion to left eye, fatigue, shortness of breath, generalized weakness, influenza A positive 05/11/2024: Patient seen and examined the ICU, remains intubated on CMV mode of ventilation, peep of 8, 28% FiO2, remains on Precedex infusion. Opens her eyes, follows simple commands in all extremities and nods to questions. Hemodynamic ally stable, adequate urine output in response to diuretics. Patient is afebrile, tolerating tube feeds. Remains in AFib but rate controlled. Tolerated ASV mode of ventilation all through the day and was switched to CMV mode overnight. Review of Systems Review of Systems: ROS unobtainable: Yes unobtainable due to endotracheal tube and unobtainable due to medical condition Exam Narrative: General: Intubated and sedated, in no acute distress HEENT:? Right pupil is reactive, left periorbital hematoma, ecchymosis and swelling, swelling of the left eye decreasing, able to open the eye, chemosis, left pupil also reactive to light, ETT in place Neck:? Supple Respiratory:? Coarse breath sounds bilaterally, rales right > left. No wheezing, adequate air entry Cardiac:? Irregularly irregular, rate controlled Abdomen:? Soft, nontender, obese, hypoactive bowel sounds Extremities:? Bilateral lower extremity edema improving, palpable pedal pulses Neuro:? Patient is intubated, on Precedex infusion, opens her eyes, follows simple commands and nods to questions Skin:? [place] skin, dry, erythematous, not warm. Psych:? Unable to assess at this time Objective Data Vital Signs Vital Signs: Vital Signs - 24 hr 05/10/24 12:00 05/10/24 12:00 05/10/24 12:00 Temperature 98.6 F Pulse Rate 87 89 Respiratory Rate 29 H Blood Pressure 148/90 H Pulse Oximetry 95 95 Oxygen Delivery Mechanical Ventilation Fraction of Inspired Oxygen 05/10/24 12:00 05/10/24 13:44 05/10/24 13:45 Temperature Pulse Rate 75 75 Respiratory Rate 28 H Blood Pressure Pulse Oximetry 96 Oxygen Delivery Mechanical Ventilation Fraction of Inspired Oxygen 05/10/24 14:00 05/10/24 14:00 05/10/24 14:00 Temperature 99.0 F Pulse Rate 86 86 86 Respiratory Rate 24 H 24 H Blood Pressure 132/77 Pulse Oximetry 95 Oxygen Delivery Fraction of Inspired Oxygen 05/10/24 14:06 05/10/24 14:52 05/10/24 15:02 Temperature Pulse Rate 76 86 86 Respiratory Rate 27 H 28 H 28 H Blood Pressure Pulse Oximetry Oxygen Delivery Fraction of Inspired Oxygen 05/10/24 16:00 05/10/24 16:00 05/10/24 16:00 Temperature Pulse Rate 88 Respiratory Rate 28 H Blood Pressure Pulse Oximetry 95 Oxygen Delivery Mechanical Ventilation Fraction of Inspired Oxygen 05/10/24 16:00 05/10/24 16:00 05/10/24 16:36 Temperature 98.8 F Pulse Rate 93 87 85 Respiratory Rate 27 H Blood Pressure 147/85 H Pulse Oximetry 96 98 Oxygen Delivery Mechanical Ventilation Fraction of Inspired Oxygen 05/10/24 18:00 05/10/24 18:00 05/10/24 18:00 Temperature 99.1 F Pulse Rate 83 83 83 Respiratory Rate 28 H 28 H Blood Pressure 145/90 H Pulse Oximetry 98 Oxygen Delivery Fraction of Inspired Oxygen 02/12/25 20:00 05/10/24 20:00 05/10/24 20:00 Temperature 99.2 F Pulse Rate 87 Respiratory Rate 24 H Blood Pressure 151/86 H Pulse Oximetry 95 95 Oxygen Delivery Mechanical Ventilation Fraction of Inspired Oxygen 28 05/10/24 20:00 05/10/24 20:16 05/10/24 20:16 Temperature Pulse Rate 83 90 90 Respiratory Rate 25 H 25 H Blood Pressure Pulse Oximetry Oxygen Delivery Fraction of Inspired Oxygen 05/10/24 20:17 05/10/24 21:05 05/10/24 21:05 Temperature Pulse Rate 78 81 83 Respiratory Rate 27 H Blood Pressure Pulse Oximetry 96 Oxygen Delivery Mechanical Ventilation Fraction of Inspired Oxygen 05/10/24 21:11 05/10/24 22:00 05/10/24 22:00 Temperature Pulse Rate 79 83 82 Respiratory Rate 24 H 24 H 24 H Blood Pressure 146/82 H Pulse Oximetry 95 Oxygen Delivery Fraction of Inspired Oxygen 05/10/24 23:15 05/11/24 00:00 05/11/24 00:00 Temperature Pulse Rate 80 Respiratory Rate Blood Pressure Pulse Oximetry 97 98 Oxygen Delivery Mechanical Ventilation Mechanical Ventilation Fraction of Inspired Oxygen 05/11/24 00:00 05/11/24 00:00 05/11/24 00:00 Temperature 99.5 F Pulse Rate 74 74 80 Respiratory Rate 22 H 22 H Blood Pressure 156/89 H Pulse Oximetry 97 Oxygen Delivery Fraction of Inspired Oxygen 05/11/24 01:29 05/11/24 01:29 05/11/24 02:00 Temperature Pulse Rate 71 71 81 Respiratory Rate 26 H 26 H 26 H Blood Pressure 147/89 H Pulse Oximetry 97 Oxygen Delivery Fraction of Inspired Oxygen 05/11/24 02:00 05/11/24 02:20 05/11/24 02:49 Temperature Pulse Rate 81 80 82 Respiratory Rate 25 H 24 H Blood Pressure Pulse Oximetry 97 Oxygen Delivery Mechanical Ventilation Fraction of Inspired Oxygen 05/11/24 02:54 05/11/24 04:00 05/11/24 04:00 Temperature Pulse Rate 80 Respiratory Rate 24 H Blood Pressure Pulse Oximetry 97 Oxygen Delivery Mechanical Ventilation Fraction of Inspired Oxygen 05/11/24 04:00 05/11/24 04:00 05/11/24 04:00 Temperature 98.8 F Pulse Rate 82 82 79 Respiratory Rate 24 H 24 H Blood Pressure 156/94 H Pulse Oximetry 97 Oxygen Delivery Fraction of Inspired Oxygen 05/11/24 04:51 05/11/24 06:00 05/11/24 06:00 Temperature Pulse Rate 79 83 83 Respiratory Rate 20 20 Blood Pressure 165/106 H Pulse Oximetry 97 97 Oxygen Delivery Mechanical Ventilation Fraction of Inspired Oxygen 05/11/24 08:00 05/11/24 08:00 05/11/24 08:00 Temperature Pulse Rate 80 83 Respiratory Rate 22 H Blood Pressure Pulse Oximetry 95 Oxygen Delivery Mechanical Ventilation Fraction of Inspired Oxygen 28 05/11/24 08:00 05/11/24 09:04 05/11/24 09:09 Temperature 98.6 F Pulse Rate 80 88 79 Respiratory Rate 22 H 29 H Blood Pressure 157/98 H Pulse Oximetry 96 96 Oxygen Delivery Mechanical Ventilation Fraction of Inspired Oxygen 05/11/24 09:21 05/11/24 09:29 05/11/24 09:54 Temperature Pulse Rate 90 94 80 Respiratory Rate 34 H 22 H Blood Pressure Pulse Oximetry Oxygen Delivery Fraction of Inspired Oxygen 05/11/24 10:00 05/11/24 10:00 05/11/24 10:55 Temperature 98.6 F Pulse Rate 81 81 83 Respiratory Rate 26 H Blood Pressure 158/80 H Pulse Oximetry 97 97 Oxygen Delivery Mechanical Ventilation Fraction of Inspired Oxygen 05/11/24 11:06 Temperature Pulse Rate 92 Respiratory Rate 26 H Blood Pressure Pulse Oximetry Oxygen Delivery Fraction of Inspired Oxygen Intake/Output Intake/Output: Intake & Output 05/08/24 05/09/24 05/10/24 05/11/24 23:59 23:59 23:59 23:59 Intake Total 1060 1647.0 2027.8 871.3 Output Total 840 2900 2050 800 Balance 220 -1253.0 -22.2 71.3 Meds/Results Medications: Active Medications Generic Name Dose Route Start Last Admin Trade Name Freq PRN Reason Stop Dose Admin Acetaminophen 650 mg 05/03/24 22:58 Acetaminophen 325 Mg Tablet PO Q6H PRN Mild Pain (1-3) or Fever Amlodipine Besylate 10 mg 05/06/24 09:50 05/11/24 09:28 Amlodipine Besylate 10 Mg Tablet PO 10 mg DAILY JR Administration Apixaban 5 mg 05/05/24 09:00 05/11/24 09:28 Apixaban 5 Mg Tablet PO 5 mg Q12HR JR Administration Aspirin 81 mg 05/04/24 09:00 05/11/24 09:28 Aspirin 81 Mg Enteric Tablet PO 81 mg DAILY JR Administration Benzocaine 1 lozenge 05/03/24 22:58 Benzocaine/Menthol (*Bkc) 18 Ea Lozenge PO PRN PRN Sore Throat Benzonatate 100 mg 05/03/24 22:58 Benzonatate 100 Mg Capsule PO TID PRN Cough Dextrose 12.5 gm 05/03/24 23:00 Dextrose 50% 25 Gm/50 Ml Syringe IV PUSH PRN PRN Hypoglycemia Protocol Glucagon 1 mg 05/03/24 23:00 Glucagon For Inj 1 Mg Vial IM PRN PRN Hypoglycemia Protocol Glucose 15 gm 05/03/24 23:00 Glucose Oral Gel 15 Gm Of Glucse In 37.5 Gm Tube PO PRN PRN Hypoglycemia Protocol Hydralazine HCl 10 mg 05/06/24 15:04 05/09/24 20:22 Hydralazine Hcl 20 Mg/Ml Vial IV PUSH 10 mg Q4H PRN Administration Blood Pressure - High Dextrose 1,000 mls @ 100 mls/hr 05/03/24 23:00 Dextrose 5% 1,000 Ml IVPB PRN PRN Hypoglycemia Protocol Cefepime HCl 2 gm in 50 mls @ 100 mls/hr 05/05/24 18:00 05/11/24 07:20 Maxipime 2 Gm/Ns 50 Ml IVPB Infused Q12H JR Infusion Dexmedetomidine HCl 400 mcg in 100 mls @ 17.6 mls/hr 05/07/24 12:25 05/11/24 11:06 Precedex 400 Mcg/100 Ml IV CONT 0.5 mcg/kg/hr .Q5H41M JR 17.6 mls/hr Administration Protocol 0.5 MCG/KG/HR Insulin Aspart 4 - 8 units 05/07/24 18:00 05/11/24 06:12 Insulin Aspart (*Bkc) 100 Units/Ml SUB-Q 6 units Q6H JR Administration Protocol Insulin Glargine 65 units 05/11/24 09:00 05/11/24 09:34 Insulin Glargine (*Bkc) 100 Units/Ml SUB-Q 65 units DAILY JR Administration Ipratropium [place] 0.5 mg 05/04/24 14:00 05/11/24 09:03 Ipratropium Br 0.02% Inh Soln 0.5 Mg/2.5 Ml Vial INHALATION 0.5 mg Q6HRT JR Administration Levalbuterol HCl 1.25 mg 05/04/24 14:00 05/11/24 09:03 Levalbuterol Neb 1.25 Mg/3 Ml INHALATION 1.25 mg Q6HRT JR Administration Lisinopril 5 mg 05/11/24 09:00 05/11/24 09:29 Lisinopril 5 Mg Tablet PO 5 mg DAILY JR Administration Metoprolol Tartrate 25 mg 05/05/24 09:00 05/11/24 09:29 Metoprolol Tartrate 25 Mg Tablet PO 25 mg Q12HR JR Administration Midazolam HCl 2 mg 05/04/24 05:14 05/04/24 05:56 Midazolam Hcl (*Crx) 2 Mg/2 Ml Vial IV PUSH 2 mg Q5M PRN Administration ventilator asynchrony Midazolam HCl 2 mg 05/09/24 02:49 05/10/24 00:37 Midazolam Hcl (*Crx) 2 Mg/2 Ml Vial IV PUSH 2 mg Q2H PRN Administration Sedation Multi-Ingred Cream/Lotion/Oil/Oint 1 applic 05/04/24 09:00 05/11/24 09:29 Mineral Oil/White Petrolatum Ointment EACH EYE 1 applic Q12HR JR Administration Ondansetron HCl 4 mg 05/04/24 03:23 05/07/24 23:35 Ondansetron Inj 4 Mg/2 Ml Vial IV PUSH 4 mg Q6H PRN Administration Nausea And Vomiting Pantoprazole Sodium 40 mg 05/04/24 09:00 05/11/24 09:29 Pantoprazole Sodium Iv 40 Mg Vial IV PUSH 40 mg DAILY JR Administration Polyethylene Glycol 17 gm 05/09/24 09:44 Polyethylene Glycol 3350 17 Gm Powd.Pack PO QAM PRN Constipation Senna/Docusate Sodium 1 tab 05/05/24 21:00 05/10/24 20:18 Senna/Docusate Sodium Tablet PO Not Given HS JR Sodium Chloride 10 ml 05/04/24 22:00 05/11/24 06:00 Central Line Flush IV PUSH 10 ml Q8HR JR Administration Sodium Chloride 10 ml 05/04/24 14:16 Central Line Flush IV PUSH PRN PRN with TPN bag changes Sodium Chloride 20 ml 05/04/24 14:16 05/08/24 05:23 Central Line Flush IV PUSH 20 ml PRN PRN Administration after blood draws Radiology Results: ITS Impressions Head CT 05/03/24 19:02 Impression: No acute intracranial hemorrhage or suspicious mass effect. Left frontal scalp hematoma without underlying fracture. Cervical Spine CT 05/03/24 19:08 Impression: Straightening of the normal curvature of the cervical spine, likely muscular in origin. Degenerative disease, without acute fracture. Chest/Abdomen/Pelvis CT 05/03/24 19:11 IMPRESSION: No cross-sectional imaging evidence of acute traumatic injury. Innumerable nonacute findings, as detailed above. Renal Ultrasound 05/05/24 08:23 IMPRESSION: 1. Normal kidneys. No hydronephrosis. Abdomen X-Ray 05/08/24 08:26 IMPRESSION: 1. No free intraperitoneal gas or dilated gas-filled loops of bowel to suggest obstruction. 2. Bilateral airspace opacities consistent with atelectasis or pneumonia. Chest X-Ray 05/11/24 07:59 Impression: Patchy bilateral airspace consolidation. Correlate for moderate to advanced pulmonary edema versus bilateral pneumonia. Support tubes, as above. Labs Labs: Laboratory Results - last 24 hr 05/10/24 05/10/24 05/10/24 11:38 18:24 23:55 WBC RBC Hgb Hct MCV MCH MCHC RDW Plt Count MPV Immature Gran % (Auto) Neut % (Auto) Lymph % (Auto) [place] % (Auto) Eos % (Auto) Baso % (Auto) Lymph # (Auto) [place] # (Auto) Eos # (Auto) Baso # (Auto) Abs Immat Gran (auto) Absolute Neuts (auto) Absolute Nucleated RBC Nucleated RBC % Puncture Site ABG pH ABG pCO2 ABG pO2 ABG PO2/FiO2 Ratio ABG HCO3 ABG O2 Saturation ABG O2 Content ABG Base Excess A-a Gradient Oxyhemoglobin Carboxyhemoglobin Methemoglobin Reduced Hemoglobin Total Hemoglobin O2 Delivery Device O2 Liters/Min Minute Volume Vent Rate Vent Mode FiO2 Tidal Volume PEEP Peak Inspir Pressure Pressure Support Sodium Potassium Chloride Carbon Dioxide Anion Gap BUN Creatinine Estim Creat Clear Calc Estimated GFR Glucose POC Capillary Glucose 307 H 284 H 258 H Calcium Phosphorus Magnesium Total Bilirubin AST ALT Alkaline Phosphatase Total Protein Albumin 05/11/24 05/11/24 04:56 05:27 WBC 10.3 H RBC 4.28 Hgb 12.4 Hct 39.5 MCV 92.3 MCH 29.0 MCHC 31.4 L RDW 14.5 Plt Count 150 MPV 11.0 H Immature Gran % (Auto) 0.7 H Neut % (Auto) 82.4 H Lymph % (Auto) 6.4 L [place] % (Auto) 7.9 Eos % (Auto) 2.4 Baso % (Auto) 0.2 Lymph # (Auto) 0.66 L [place] # (Auto) 0.8 H Eos # (Auto) 0.3 Baso # (Auto) 0.0 Abs Immat Gran (auto) 0.07 H Absolute Neuts (auto) 8.5 H Absolute Nucleated RBC 0.000 Nucleated RBC % 0.0 Puncture Site Right radial ABG pH 7.472 H ABG pCO2 41.1 ABG pO2 76.9 L ABG PO2/FiO2 Ratio 2.75 ABG HCO3 29.4 H ABG O2 Saturation 96.1 ABG O2 Content 18.0 ABG Base Excess 5.3 A-a Gradient 74.2 Oxyhemoglobin 94.7 Carboxyhemoglobin 1.0 Methemoglobin 0.3 Reduced Hemoglobin 4.0 Total Hemoglobin 13.5 O2 Delivery Device Ventilator O2 Liters/Min Not Reportable Minute Volume Not Reportable Vent Rate 24 Vent Mode Cmv FiO2 28 Tidal Volume 390 PEEP 8 Peak Inspir Pressure Not Reportable Pressure Support Not Reportable Sodium 140 Potassium 4.2 Chloride 103 Carbon Dioxide 27 Anion Gap 10 BUN 65 H Creatinine 0.84 Estim Creat Clear Calc 75 Estimated GFR > 60 Glucose 308 H POC Capillary Glucose Calcium 9.4 Phosphorus 3.0 Magnesium 2.4 H Total Bilirubin 0.9 AST 15 ALT 38 H Alkaline Phosphatase 62 Total Protein 7.0 Albumin 3.2 L Quality VTE Prophylaxis VTE prophylaxis: pharmacologic ordered
[2024-05-11 11:59] LABS: Glucose Point of Care 328 mg/dl (65-105)
[2024-05-11] MEDS: MIDAZOLAM HCL (*CRX) 2 MG/2 ML VIAL IV PUSH (14:03)
[2024-05-11 18:10] LABS: Glucose Point of Care 304 mg/dl (65-105)
[2024-05-11] MEDS: SENNA/DOCUSATE SODIUM TABLET 1 TAB PO (19:52)
[2024-05-12] VITALS (32 sets, daily range): BP systolic 119–152; BP diastolic 71–99; PULSE 74–93; RESP 20–33; TEMP 37.4–37.7; O2SAT 95–99
[2024-05-12 00:15] LABS: Glucose Point of Care 232 mg/dl (65-105)
[2024-05-12] MEDS: INSULIN ASPART (*BKC) 100 UNITS/ML SUB-Q ×4 (00:27→18:04)
[2024-05-12] MEDS: IPRATROPIUM BR 0.02% INH SOLN 0.5 MG/2.5 ML VIAL INHALATION ×4 (01:35→20:45)
[2024-05-12] MEDS: LEVALBUTEROL NEB 1.25 MG/3 ML INHALATION ×4 (01:35→20:45)
[2024-05-12] MEDS: CENTRAL LINE FLUSH 10 ML IV PUSH ×3 (05:20→20:12)
[2024-05-12 05:34] LABS: Alveolar/Arterial O2 Gradient 67.6 mmHg; Base Excess ABG 4.5 mEq/l (+/-2.0); Carboxyhemoglobin 1.1 % THb (0-2.0); Fractional Inspired Oxygen 28 %; HCO3 ABG 29.7 mEq/l (22.0-26.0); Oxygen Content ABG 17.3 %vol (16.0-22.0); Oxygen Saturation ABG 95.6 % (95.0-100.0); Oxyhemoglobin 94.6 % THb (90.0-100.0); PCO2 ABG 46.3 mmHg (35.0-45.0); PO2 ABG 77.4 mmHg (80.0-100.0); PO2 FiO2 Ratio Arterial Blood 2.76 %; Reduced Hemoglobin 4.3 %THb (0-5.0); pH ABG 7.425 (7.350-7.450)
[2024-05-12 05:35] LABS: Arterial Blood Gas PEEP 8 cmH2O; Arterial Blood Gas Tidal Volume 390 ml; Arterial Blood Gas Vent Mode CMV; Arterial Blood Gas Ventilator rate 22 /MIN; Device VENTILATOR; Modified Allen's Test Pass; Site Drawn LEFT RADIAL
[2024-05-12] MEDS: dexmedeTOMIDine 400 MCG/100 ML 400 MCG/100 ML BAG 17.6 MCG IV CONT ×3 (05:35→17:36)
[2024-05-12] MEDS: CEFEPIME 2 GM/NS 50 ML 2 GM/50 ML BAG IVPB ×2 (05:58→18:03)
[2024-05-12 06:26] LABS: Basophils Percent Auto 0.3 % (0.2-1.2); Eosinophils Absolute Auto 0.3 K/mm3 (0-0.3); Eosinophils Percent Auto 3.1 % (0-4.4); Hematocrit 37.7 % (37.0-47.0); Hemoglobin 11.9 g/dL (12.0-15.0); Immature Granulocyte Absolute 0.06 K/mm3 (0.00-0.031); Immature Granulocyte Percent A 0.6 % (0-0.5); Lymphocytes Absolute Auto 0.77 K/mm3 (0.9-3.2); Lymphocytes Percent Auto 7.4 % (18.3-44.2); Mean Corpuscular HGB Conc 31.6 g/dl (32-36); Mean Corpuscular Hemoglobin 29.5 pg (26-34); Mean Corpuscular Volume 93.3 fl (80-100); Monocytes Absolute Auto 0.9 K/mm3 (0.1-0.6); Monocytes Percent Auto 8.8 % (2.6-8.5); Neutrophils Absolute Auto 8.3 K/mm3 (1.3-6.7); Neutrophils Percent Auto 79.8 % (45.5-73.1); Platelet Count Result 160 k/mm3 (150-375); Red Blood Count 4.04 M/mm3 (4.2-5.4); Red Cell Distribution Width 14.2 % (11.5-14.5); White Blood Count 10.4 K/mm3 (4.5-10.0)
[2024-05-12 06:34] LABS: Alanine Aminotransferase 28 U/L (6-35); Alkaline Phosphatase 55 U/L (38-126); Anion Gap 6 mmol/L (4-12); Aspartate Amino Transferase 14 U/L (14-36); Bilirubin,Total 0.8 mg/dL (0.2-1.3); Blood Urea Nitrogen 58 mg/dL (7-17); Calcium 9.4 mg/dL (8.4-10.2); Carbon Dioxide 30 mmol/L (22-30); Chloride 103 mmol/L (98-107); Estimated CRCL calculation 76 ml/min; Estimated Glomerular Filt Rate > 60; Glucose 249 mg/dL (65-110); Magnesium 2.2 mg/dL (1.6-2.3); Phosphorus 3.2 mg/dL (2.5-4.5); Potassium 4.2 mmol/L (3.4-5.0); Sodium 139 mmol/L (137-145)
[2024-05-12] MEDS: BUMETANIDE INJ 1 MG/4 ML VIAL 2 MG IV PUSH (09:10)
[2024-05-12] MEDS: APIXABAN 5 MG TABLET PO ×2 (09:10→20:10)
[2024-05-12] MEDS: amLODIPine BESYLATE 10 MG TABLET PO (09:10)
[2024-05-12] MEDS: ASPIRIN 81 MG ENTERIC TABLET PO (09:10)
[2024-05-12] MEDS: METOPROLOL TARTRATE 25 MG TABLET PO ×2 (09:11→20:10)
[2024-05-12] MEDS: PANTOPRAZOLE SODIUM IV 40 MG VIAL IV PUSH (09:11)
[2024-05-12] MEDS: MINERAL OIL/WHITE PETROLATUM OINTMENT 1 APPLIC EACH EYE ×2 (09:11→20:10)
[2024-05-12] MEDS: lisinopriL 5 MG TABLET PO (09:11)
[2024-05-12] MEDS: INSULIN GLARGINE (*BKC) 100 UNITS/ML 75 UNITS SUB-Q (09:16)
--- NOTE | 2024-05-12 09:54 | WPDINTPN ---
Progress Note: A&P Assessment and Plan (1) Acute hypercapnic respiratory failure: Code(s): J96.02 - Acute respiratory failure with hypercapnia Status: Acute Assessment and Plan: Acute hypercapnic respiratory failure despite being on BiPAP, patient had altered mental status, hallucinations with worsening ABGs, patient is a smoker, will have packet per day for many years per daughter, no formal diagnosis of COPD but given her hypercapnic respiratory failure, patient may have COPD and may benefit from pulmonary consult as outpatient -intubated on in the early hours of 05/04/2024 -currently on CMV mode of ventilation, -likely related to pneumonia secondary to influenza -continue Xopenex and Atrovent nebulizer since patient had AFib RVR on admission -status post 5 day course of azithromycin, -05/05: Vancomycin discontinue, MRSA screen negative -status post Solu-Medrol -continue cefepime (05/05) -continue fentanyl and Versed infusion, maintain RASS of 0 to -2, daily sedation vacation 05/08: Chest X ray shows bilateral infiltrates, pneumonia versus pulmonary edema, patient is positive fluid balance, will diurese with Lasix x1-with adequate diuresis 05/09: Chest x-ray and ABGs, will diurese again today. White count has normalized, patient is afebrile 05/10: Chest x-ray continues to show extensive bilateral airspace disease consistent with possible pulmonary edema versus pneumonia. Diurese again today. Initially had placed patient on pressure support ventilation 03/05, she was tachycardic and not getting adequate tidal volumes switched to ASV mode, currently tolerating well 03/10: Patient tolerated ASV mode all day yesterday and was placed back on CMV mode overnight. Diuresed well, creatinine improving. Will diurese again today. Patient remains on Precedex infusion, placed on pressure support ventilation 03/02 I have asked the RT to start decreasing her pressure support to 10/5 and then 8/. Chest x-ray this morning continues to show patchy bilateral airspace consolidation could be pulmonary edema versus bilateral pneumonia 03/11: Patient on CMV mode of ventilation, requiring 28% FiO2. Chest x-ray continues to show stable diffuse lung disease consistent with pneumonia. Will place patient on ASV and transition her to pressure support ventilation and if she tolerates will place on a breathing trial. Will continue diurese again today (2) Influenza: Code(s): J11.1 - Influenza due to unidentified influenza virus with other respiratory manifestations Status: Acute Assessment and Plan: Influenza A positive, completed the 5 day course of Tamiflu (3) PNA (pneumonia): Qualifiers: Pneumonia type: due to influenza A virus Qualified Code(s): J10.00 - Influenza due to other identified influenza virus with unspecified type of pneumonia Code(s): J18.9 - Pneumonia, unspecified organism Status: Acute Assessment and Plan: Pneumonia likely related to influenza/community-acquired -continue antibiotics as above -currently on mechanical ventilation (4) UTI (urinary tract infection): Qualifiers: Urinary tract infection type: acute cystitis Hematuria presence: without hematuria Qualified Code(s): N30.00 - Acute cystitis without hematuria Code(s): N39.0 - Urinary tract infection, site not specified Status: Acute Assessment and Plan: Urinalysis reflective UTI -continue antibiotics as above -05/03: urine cultures growing E coli, pansensitive (5) Atrial fibrillation with RVR: Code(s): I48.91 - Unspecified atrial fibrillation Status: Acute Assessment and Plan: AFib RVR on admission, initially was started on heparin infusion and diltiazem infusion, which were later discontinued -heart rate better controlled, patient was dropping her heart rates in the 60s with diltiazem infusion was stopped -continue to monitor -remains in AFib, rate controlled -continue home Eliquis and increase metoprolol (6) Type 2 diabetes mellitus with hyperglycemia: Qualifiers: Diabetes mellitus buttermaker insulin use: with buttermaker use Qualified Code(s): E11.65 - Type 2 diabetes mellitus with hyperglycemia; 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 Code(s): E11.65 - Type 2 diabetes mellitus with hyperglycemia Status: Chronic Assessment and Plan: Accu-Cheks and sliding scale insulin -remains hyperglycemic, will increase Lantus -now on Glucerna tube feeds (7) Fall: Code(s): W19.XXXA - Unspecified fall, initial encounter Status: Acute Assessment and Plan: Patient status post fall at home with contusion to the left eye CT head did not show any acute intracranial hemorrhage or suspicious mass effect, left frontal scalp hematoma without underlying fracture CT cervical spine: Straightening of the normal curvature of the cervical spine, likely muscular in origin. Degenerative disease, without acute fracture. CT chest abdomen pelvis: No acute evidence of traumatic injury Patient will require PT/OT when she is extubated (8) Essential hypertension: Code(s): I10 - Essential (primary) hypertension Status: Chronic Assessment and Plan: Patient intubated and sedated, blood pressures remained stable, -continue amlodipine and metoprolol. 03/10: Restarted home lisinopril Plan DVT prophylaxis: Apixaban Stress ulcer prophylaxis: Protonix Nutrition: Continues tube feeds, continue MiraLax p.r.n. and senna Code Status: Full code Critical Care Time Spent: 33 minutes Discussed with family and updated them with her condition and plan of care. Due to a high probability of clinically significant, life threatening deterioration, the patient required my highest level of preparedness to intervene emergently and I personally spent this critical care time directly and personally managing the patient. This critical care time included obtaining a history; examining the patient; pulse oximetry; ordering and review of studies; arranging urgent treatment with development of a management plan; evaluation of patient's response to treatment; frequent reassessment; and discussions with other providers. It was exclusive of separately billable procedures and treating other patients and teaching time. Please see Assessment and Plan section and the rest of the note for further information on patient assessment and treatment This dictation may have been done utilizing a voice recognition system. Attempts have been made to correct errors. However, there may be uncorrected grammatical, spelling, and recognitions errors present. Subjective Date/time seen: 05/12/24 09:54 Interval history: Reason for consult: Acute hypercapnic respiratory failure, fall, contusion to left eye, fatigue, shortness of breath, generalized weakness, influenza A positive 05/12/2024: Patient seen and examined the ICU, remains intubated on CMV mode of ventilation, peep of 8, 28% FiO2, remains on Precedex infusion. Opens her eyes, follows simple commands in all extremities and nods to questions. Hemodynamically stable, adequate urine output in response to diuretics. Patient is afebrile, tolerating tube feeds. Remains in AFib but rate controlled. Tolerated ASV mode of ventilation all through the day and was switched to CMV mode overnight. Review of Systems Review of Systems: ROS unobtainable: Yes unobtainable due to endotracheal tube and unobtainable due to medical condition Exam Narrative: General: Intubated and sedated, in no acute distress HEENT:? Right pupil is reactive, left periorbital hematoma, ecchymosis and swelling, swelling of the left eye decreasing, able to open the eye, chemosis, left pupil also reactive to light, ETT in place Neck:? Supple Respiratory:? Coarse breath sounds bilaterally, rales right > left. No wheezing, adequate air entry Cardiac:? Irregularly irregular, rate controlled Abdomen:? Soft, nontender, obese, hypoactive bowel sounds Extremities:? Bilateral lower extremity edema improving, palpable pedal pulses Neuro:? Patient is intubated, on Precedex infusion, opens her eyes, follows simple commands and nods to questions Skin:? [place] skin, dry, erythematous, not warm. Psych:? Unable to assess at this time Objective Data Vital Signs Vital Signs: Vital Signs - 24 hr 05/11/24 10:00 05/11/24 10:00 05/11/24 10:55 Temperature 98.6 F Pulse Rate 81 81 83 Respiratory Rate 26 H Blood Pressure 158/80 H Pulse Oximetry 97 97 Oxygen Delivery Mechanical Ventilation Fraction of Inspired Oxygen 05/11/24 11:06 05/11/24 12:00 05/11/24 12:00 Temperature Pulse Rate 92 83 85 Respiratory Rate 26 H 29 H 28 H Blood Pressure Pulse Oximetry 95 Oxygen Delivery Mechanical Ventilation Fraction of Inspired Oxygen 05/11/24 12:00 05/11/24 12:00 05/11/24 12:00 Temperature 98.6 F Pulse Rate 85 85 Respiratory Rate 28 H Blood Pressure 145/89 H Pulse Oximetry 95 Oxygen Delivery Fraction of Inspired Oxygen 05/11/24 14:00 05/11/24 14:00 05/11/24 14:00 Temperature 98.7 F Pulse Rate 96 90 90 Respiratory Rate 27 H 25 H Blood Pressure 150/79 H Pulse Oximetry 97 Oxygen Delivery Fraction of Inspired Oxygen 05/11/24 14:13 05/11/24 14:18 05/11/24 14:20 Temperature Pulse Rate 92 83 91 Respiratory Rate 24 H 25 H Blood Pressure Pulse Oximetry 96 Oxygen Delivery Mechanical Ventilation Fraction of Inspired Oxygen 05/11/24 16:00 05/11/24 16:00 05/11/24 16:00 Temperature Pulse Rate 88 83 83 Respiratory Rate 28 H 28 H Blood Pressure Pulse Oximetry 94 Oxygen Delivery Mechanical Ventilation Fraction of Inspired Oxygen 28 05/11/24 16:00 05/11/24 16:00 05/11/24 16:48 Temperature 98.9 F Pulse Rate 83 84 Respiratory Rate 28 H 28 H Blood Pressure 134/76 Pulse Oximetry 94 Oxygen Delivery Fraction of Inspired Oxygen 28 05/11/24 16:59 05/11/24 17:14 05/11/24 18:00 Temperature Pulse Rate 78 84 84 Respiratory Rate 28 H Blood Pressure Pulse Oximetry 94 Oxygen Delivery Mechanical Ventilation Fraction of Inspired Oxygen 28 05/11/24 18:00 05/11/24 18:00 05/11/24 19:15 Temperature 98.9 F Pulse Rate 84 80 85 Respiratory Rate 28 H 28 H Blood Pressure 145/73 H Pulse Oximetry 96 96 Oxygen Delivery Mechanical Ventilation Fraction of Inspired Oxygen 05/11/24 19:15 05/11/24 19:53 05/11/24 19:54 Temperature Pulse Rate 85 89 82 Respiratory Rate 25 H 28 H Blood Pressure Pulse Oximetry Oxygen Delivery Fraction of Inspired Oxygen 05/11/24 20:00 05/11/24 20:00 05/11/24 20:00 Temperature Pulse Rate 83 Respiratory Rate 27 H Blood Pressure Pulse Oximetry 98 Oxygen Delivery Mechanical Ventilation Fraction of Inspired Oxygen 28 05/11/24 20:00 05/11/24 20:29 05/11/24 22:04 Temperature 99 F 99.4 F Pulse Rate 90 83 72 Respiratory Rate 27 H 25 H Blood Pressure 138/88 156/73 H Pulse Oximetry 98 96 Oxygen Delivery Fraction of Inspired Oxygen 05/11/24 22:10 05/11/24 22:10 05/11/24 22:29 Temperature Pulse Rate 72 72 80 Respiratory Rate 25 H 25 H Blood Pressure Pulse Oximetry 95 Oxygen Delivery Mechanical Ventilation Fraction of Inspired Oxygen 05/12/24 00:00 05/12/24 00:00 05/12/24 00:00 Temperature Pulse Rate 80 Respiratory Rate 25 H Blood Pressure Pulse Oximetry 99 Oxygen Delivery Mechanical Ventilation Fraction of Inspired Oxygen 28 05/12/24 00:00 05/12/24 00:00 05/12/24 01:35 Temperature 99.4 F Pulse Rate 79 86 79 Respiratory Rate 25 H Blood Pressure 152/78 H Pulse Oximetry 98 97 Oxygen Delivery Mechanical Ventilation Fraction of Inspired Oxygen 05/12/24 01:35 05/12/24 02:00 05/12/24 02:00 Temperature Pulse Rate 79 83 78 Respiratory Rate 22 H 24 H 22 H Blood Pressure 119/71 Pulse Oximetry 98 Oxygen Delivery Fraction of Inspired Oxygen 05/12/24 02:00 05/12/24 02:14 05/12/24 04:00 Temperature 99.3 F Pulse Rate 78 78 Respiratory Rate 28 H 22 H Blood Pressure 119/72 Pulse Oximetry 99 98 Oxygen Delivery Mechanical Ventilation Fraction of Inspired Oxygen 05/12/24 04:00 05/12/24 04:00 05/12/24 04:00 Temperature 99.4 F Pulse Rate 85 85 Respiratory Rate 25 H 25 H Blood Pressure 149/99 H Pulse Oximetry 98 Oxygen Delivery Fraction of Inspired Oxygen 05/12/24 04:00 05/12/24 05:28 05/12/24 05:35 Temperature Pulse Rate 81 74 74 Respiratory Rate 26 H Blood Pressure Pulse Oximetry 96 Oxygen Delivery Mechanical Ventilation Fraction of Inspired Oxygen 05/12/24 06:00 05/12/24 06:00 05/12/24 08:00 Temperature 99.7 F H Pulse Rate 74 75 80 Respiratory Rate 26 H 24 H 27 H Blood Pressure 148/85 H 150/93 H Pulse Oximetry 96 97 Oxygen Delivery Fraction of Inspired Oxygen 05/12/24 08:00 05/12/24 08:00 05/12/24 08:00 Temperature Pulse Rate 78 78 Respiratory Rate 25 H Blood Pressure Pulse Oximetry 97 Oxygen Delivery Mechanical Ventilation Fraction of Inspired Oxygen 28 05/12/24 08:00 05/12/24 08:24 05/12/24 08:27 Temperature Pulse Rate 87 75 76 Respiratory Rate 24 H 24 H Blood Pressure Pulse Oximetry 97 Oxygen Delivery Mechanical Ventilation Fraction of Inspired Oxygen 05/12/24 08:32 05/12/24 09:11 Temperature Pulse Rate 76 83 Respiratory Rate 25 H Blood Pressure Pulse Oximetry Oxygen Delivery Fraction of Inspired Oxygen Intake/Output Intake/Output: Intake & Output 05/09/24 05/10/24 05/11/24 05/12/24 23:59 23:59 23:59 23:59 Intake Total 1647.0 2027.8 2122.1 852.5 Output Total 2900 2050 2300 950 Balance -1253.0 -22.2 -177.9 -97.5 Meds/Results Medications: Active Medications Generic Name Dose Route Start Last Admin Trade Name Freq PRN Reason Stop Dose Admin Acetaminophen 650 mg 05/03/24 22:58 Acetaminophen 325 Mg Tablet PO Q6H PRN Mild Pain (1-3) or Fever Amlodipine Besylate 10 mg 05/06/24 09:50 05/12/24 09:10 Amlodipine Besylate 10 Mg Tablet PO 10 mg DAILY JR Administration Apixaban 5 mg 05/05/24 09:00 05/12/24 09:10 Apixaban 5 Mg Tablet PO 5 mg Q12HR JR Administration Aspirin 81 mg 05/04/24 09:00 05/12/24 09:10 Aspirin 81 Mg Enteric Tablet PO 81 mg DAILY JR Administration Benzocaine 1 lozenge 05/03/24 22:58 Benzocaine/Menthol (*Bkc) 18 Ea Lozenge PO PRN PRN Sore Throat Benzonatate 100 mg 05/03/24 22:58 Benzonatate 100 Mg Capsule PO TID PRN Cough Bumetanide 2 mg 05/12/24 07:20 05/12/24 09:10 Bumetanide Inj 1 Mg/4 Ml Vial IV PUSH 05/12/24 13:21 2 mg Q6H JR Administration Dextrose 12.5 gm 05/03/24 23:00 Dextrose 50% 25 Gm/50 Ml Syringe IV PUSH PRN PRN Hypoglycemia Protocol Glucagon 1 mg 05/03/24 23:00 Glucagon For Inj 1 Mg Vial IM PRN PRN Hypoglycemia Protocol Glucose 15 gm 05/03/24 23:00 Glucose Oral Gel 15 Gm Of Glucse In 37.5 Gm Tube PO PRN PRN Hypoglycemia Protocol Hydralazine HCl 10 mg 05/06/24 15:04 05/09/24 20:22 Hydralazine Hcl 20 Mg/Ml Vial IV PUSH 10 mg Q4H PRN Administration Blood Pressure - High Dextrose 1,000 mls @ 100 mls/hr 05/03/24 23:00 Dextrose 5% 1,000 Ml IVPB PRN PRN Hypoglycemia Protocol Cefepime HCl 2 gm in 50 mls @ 100 mls/hr 05/05/24 18:00 05/12/24 06:46 Maxipime 2 Gm/Ns 50 Ml IVPB Infused Q12H JR Infusion Dexmedetomidine HCl 400 mcg in 100 mls @ 17.6 mls/hr 05/07/24 12:25 05/12/24 08:00 Precedex 400 Mcg/100 Ml IV CONT 0.5 mcg/kg/hr .Q5H41M JR 17.6 mls/hr Titration Protocol 0.5 MCG/KG/HR Insulin Aspart 4 - 8 units 05/07/24 18:00 05/12/24 06:44 Insulin Aspart (*Bkc) 100 Units/Ml SUB-Q 4 units Q6H JR Administration Protocol Insulin Glargine 75 units 05/12/24 09:00 05/12/24 09:16 Insulin Glargine (*Bkc) 100 Units/Ml SUB-Q 75 units DAILY JR Administration Ipratropium [place] 0.5 mg 05/04/24 14:00 05/12/24 08:23 Ipratropium Br 0.02% Inh Soln 0.5 Mg/2.5 Ml Vial INHALATION 0.5 mg Q6HRT JR Administration Levalbuterol HCl 1.25 mg 05/04/24 14:00 05/12/24 08:23 Levalbuterol Neb 1.25 Mg/3 Ml INHALATION 1.25 mg Q6HRT JR Administration Lisinopril 5 mg 05/11/24 09:00 05/12/24 09:11 Lisinopril 5 Mg Tablet PO 5 mg DAILY [facility] Administration Metoprolol Tartrate 25 mg 05/05/24 09:00 05/12/24 09:11 Metoprolol Tartrate 25 Mg Tablet PO 25 mg Q12HR JR Administration Midazolam HCl 2 mg 05/04/24 05:14 05/11/24 14:03 Midazolam Hcl (*Crx) 2 Mg/2 Ml Vial IV PUSH 2 mg Q5M PRN Administration ventilator asynchrony Midazolam HCl 2 mg 05/09/24 02:49 05/10/24 00:37 Midazolam Hcl (*Crx) 2 Mg/2 Ml Vial IV PUSH 2 mg Q2H PRN Administration Sedation Multi-Ingred Cream/Lotion/Oil/Oint 1 applic 05/04/24 09:00 05/12/24 09:11 Mineral Oil/White Petrolatum Ointment EACH EYE 1 applic Q12HR JR Administration Ondansetron HCl 4 mg 05/04/24 03:23 05/07/24 23:35 Ondansetron Inj 4 Mg/2 Ml Vial IV PUSH 4 mg Q6H PRN Administration Nausea And Vomiting Pantoprazole Sodium 40 mg 05/04/24 09:00 05/12/24 09:11 Pantoprazole Sodium Iv 40 Mg Vial IV PUSH 40 mg DAILY JR Administration Polyethylene Glycol 17 gm 05/09/24 09:44 Polyethylene Glycol 3350 17 Gm Powd.Pack PO QAM PRN Constipation Senna/Docusate Sodium 1 tab 05/05/24 21:00 05/11/24 19:52 Senna/Docusate Sodium Tablet PO 1 tab HS JR Administration Sodium Chloride 10 ml 05/04/24 22:00 05/12/24 05:20 Central Line Flush IV PUSH 10 ml Q8HR JR Administration Sodium Chloride 10 ml 05/04/24 14:16 Central Line Flush IV PUSH PRN PRN with TPN bag changes Sodium Chloride 20 ml 05/04/24 14:16 05/08/24 05:23 Central Line Flush IV PUSH 20 ml PRN PRN Administration after blood draws Radiology Results: ITS Impressions Head CT 05/03/24 19:02 Impression: No acute intracranial hemorrhage or suspicious mass effect. Left frontal scalp hematoma without underlying fracture. Cervical Spine CT 05/03/24 19:08 Impression: Straightening of the normal curvature of the cervical spine, likely muscular in origin. Degenerative disease, without acute fracture. Chest/Abdomen/Pelvis CT 05/03/24 19:11 IMPRESSION: No cross-sectional imaging evidence of acute traumatic injury. Innumerable nonacute findings, as detailed above. Renal Ultrasound 05/05/24 08:23 IMPRESSION: 1. Normal kidneys. No hydronephrosis. Abdomen X-Ray 05/08/24 08:26 IMPRESSION: 1. No free intraperitoneal gas or dilated gas-filled loops of bowel to suggest obstruction. 2. Bilateral airspace opacities consistent with atelectasis or pneumonia. Chest X-Ray 05/12/24 06:26 IMPRESSION: 1. Stable diffuse lung disease, consistent with pneumonia. 2. Cardiomegaly. Labs Labs: Laboratory Results - last 24 hr 05/11/24 05/11/24 05/12/24 11:57 18:02 00:13 WBC RBC Hgb Hct MCV MCH MCHC RDW Plt Count MPV Immature Gran % (Auto) Neut % (Auto) Lymph % (Auto) [place] % (Auto) Eos % (Auto) Baso % (Auto) Lymph # (Auto) [place] # (Auto) Eos # (Auto) Baso # (Auto) Abs Immat Gran (auto) Absolute Neuts (auto) Absolute Nucleated RBC Nucleated RBC % Puncture Site ABG pH ABG pCO2 ABG pO2 ABG PO2/FiO2 Ratio ABG HCO3 ABG O2 Saturation ABG O2 Content ABG Base Excess A-a Gradient Oxyhemoglobin Carboxyhemoglobin Methemoglobin Reduced Hemoglobin Total Hemoglobin O2 Delivery Device O2 Liters/Min Minute Volume Vent Rate Vent Mode FiO2 Tidal Volume PEEP Peak Inspir Pressure Pressure Support Sodium Potassium Chloride Carbon Dioxide Anion Gap BUN Creatinine Estim Creat Clear Calc Estimated GFR Glucose POC Capillary Glucose 328 H 304 H 232 H Calcium Phosphorus Magnesium Total Bilirubin AST ALT Alkaline Phosphatase Total Protein Albumin 05/12/24 05/12/24 05:16 05:57 WBC 10.4 H RBC 4.04 L Hgb 11.9 L Hct 37.7 MCV 93.3 MCH 29.5 MCHC 31.6 L RDW 14.2 Plt Count 160 MPV 11.0 H Immature Gran % (Auto) 0.6 H Neut % (Auto) 79.8 H Lymph % (Auto) 7.4 L [place] % (Auto) 8.8 H Eos % (Auto) 3.1 Baso % (Auto) 0.3 Lymph # (Auto) 0.77 L [place] # (Auto) 0.9 H Eos # (Auto) 0.3 Baso # (Auto) 0.0 Abs Immat Gran (auto) 0.06 H Absolute Neuts (auto) 8.3 H Absolute Nucleated RBC 0.000 Nucleated RBC % 0.0 Puncture Site Left radial ABG pH 7.425 ABG pCO2 46.3 H ABG pO2 77.4 L ABG PO2/FiO2 Ratio 2.76 ABG HCO3 29.7 H ABG O2 Saturation 95.6 ABG O2 Content 17.3 ABG Base Excess 4.5 A-a Gradient 67.6 Oxyhemoglobin 94.6 Carboxyhemoglobin 1.1 Methemoglobin 0.0 Reduced Hemoglobin 4.3 Total Hemoglobin 13.0 O2 Delivery Device Ventilator O2 Liters/Min Not Reportable Minute Volume Not Reportable Vent Rate 22 Vent Mode Cmv FiO2 28 Tidal Volume 390 PEEP 8 Peak Inspir Pressure Not Reportable Pressure Support Not Reportable Sodium 139 Potassium 4.2 Chloride 103 Carbon Dioxide 30 Anion Gap 6 BUN 58 H Creatinine 0.82 Estim Creat Clear Calc 76 Estimated GFR > 60 Glucose 249 H POC Capillary Glucose Calcium 9.4 Phosphorus 3.2 Magnesium 2.2 Total Bilirubin 0.8 AST 14 ALT 28 Alkaline Phosphatase 55 Total Protein 6.0 L Albumin 3.0 L Quality VTE Prophylaxis VTE prophylaxis: pharmacologic ordered
--- NOTE | 2024-05-12 11:15 | PCNFU ---
Nutrition Follow-Up Complete: Suboptimal Energy Intake as related to mechanical ventilation as evidenced by NPO. Goal: Meet estimated nutritional needs. Patient is meeting goal. Will continue current goal. Pt current nutrition is Glucerna 1.2 at 60 ml/hr. Last recorded weight is 137.6 kg, 138.5 kg on admit. Bowel Motility: +BM reported 05/12 Labs Reviewed:Glu 249, BUN 58, Alb 3.0 Meds Noted:Senokot, Heparin, Lantus, NovoLog, Reglan, Precedex Skin: WNL Additional Notes: Patient remains on a mechanical vent. Breathing trial planned for today. Tube feedings are being tolerated of Glucerna 1.2 at 60 ml/hr with Prosource BID. Total Nutrition: 1744 kcal/119 gm protein/1063 ml water. Flush 30 ml q 4 hours. Agree with diet orders. Will monitor weight, labs, skin, diet orders, meds every Wednesday and Wednesday.
[2024-05-12 11:55] LABS: Glucose Point of Care 264 mg/dl (65-105)
[2024-05-12 15:34] LABS: Chloride Rand Ur <20 mmol/L (32-290); Creatinine Random Urine 141 mg/dL (20-275)
[2024-05-12 18:03] LABS: Glucose Point of Care 205 mg/dl (65-105)
[2024-05-12] MEDS: SENNA/DOCUSATE SODIUM TABLET 1 TAB PO (20:10)
[2024-05-12] MEDS: MIDAZOLAM HCL (*CRX) 2 MG/2 ML VIAL IV PUSH (20:16)
[2024-05-12] MEDS: dexmedeTOMIDine 400 MCG/100 ML 400 MCG/100 ML BAG 21.12 MCG IV CONT (22:39)
[2024-05-13] VITALS (37 sets, daily range): BP systolic 103–153; BP diastolic 51–101; PULSE 73–93; RESP 14–34; TEMP 37.5–37.8; O2SAT 91–96
[2024-05-13] MEDS: MIDAZOLAM HCL (*CRX) 2 MG/2 ML VIAL IV PUSH (00:04)
[2024-05-13 00:16] LABS: Glucose Point of Care 160 mg/dl (65-105)
[2024-05-13] MEDS: IPRATROPIUM BR 0.02% INH SOLN 0.5 MG/2.5 ML VIAL INHALATION ×4 (01:19→20:37)
[2024-05-13] MEDS: LEVALBUTEROL NEB 1.25 MG/3 ML INHALATION ×4 (01:20→20:36)
[2024-05-13] MEDS: dexmedeTOMIDine 400 MCG/100 ML 400 MCG/100 ML BAG 24.64 MCG IV CONT (03:00)
[2024-05-13 04:54] LABS: Alveolar/Arterial O2 Gradient 68.3 mmHg; Base Excess ABG 5.7 mEq/l (+/-2.0); Fractional Inspired Oxygen 28 %; HCO3 ABG 30.5 mEq/l (22.0-26.0); Methemoglobin ABG 0.3 %THb (0-1.5); Oxygen Content ABG 16.5 %vol (16.0-22.0); Oxygen Saturation ABG 95.9 % (95.0-100.0); Oxyhemoglobin 94.6 % THb (90.0-100.0); PCO2 ABG 45.4 mmHg (35.0-45.0); PO2 ABG 77.8 mmHg (80.0-100.0); PO2 FiO2 Ratio Arterial Blood 2.78 %; Reduced Hemoglobin 4.1 %THb (0-5.0); Total Hemoglobin 12.4 g/dL (12.0-18.0); pH ABG 7.445 (7.350-7.450)
[2024-05-13 04:55] LABS: Site Drawn RIGHT RADIAL
[2024-05-13 04:56] LABS: Arterial Blood Gas Ventilator rate 22 /MIN; Device VENTILATOR; Modified Allen's Test Pass
[2024-05-13 04:57] LABS: Arterial Blood Gas PEEP 8 cmH2O; Arterial Blood Gas Tidal Volume 390 ml; Arterial Blood Gas Vent Mode CMV
[2024-05-13 05:53] LABS: Glucose Point of Care 134 mg/dl (65-105)
[2024-05-13] MEDS: CEFEPIME 2 GM/NS 50 ML 2 GM/50 ML BAG IVPB ×2 (05:54→17:54)
[2024-05-13] MEDS: CENTRAL LINE FLUSH 10 ML IV PUSH ×3 (05:55→20:09)
[2024-05-13 06:14] LABS: Basophils Percent Auto 0.4 % (0.2-1.2); Eosinophils Absolute Auto 0.4 K/mm3 (0-0.3); Eosinophils Percent Auto 3.5 % (0-4.4); Hemoglobin 11.2 g/dL (12.0-15.0); Immature Granulocyte Absolute 0.07 K/mm3 (0.00-0.031); Immature Granulocyte Percent A 0.7 % (0-0.5); Lymphocytes Absolute Auto 0.87 K/mm3 (0.9-3.2); Lymphocytes Percent Auto 8.3 % (18.3-44.2); Mean Corpuscular HGB Conc 31.1 g/dl (32-36); Mean Corpuscular Volume 93.3 fl (80-100); Mean Platelet Volume 11.1 fl (7.4-10.4); Monocytes Absolute Auto 1.1 K/mm3 (0.1-0.6); Monocytes Percent Auto 10.2 % (2.6-8.5); Neutrophils Percent Auto 76.9 % (45.5-73.1); Platelet Count Result 160 k/mm3 (150-375); Red Blood Count 3.86 M/mm3 (4.2-5.4); White Blood Count 10.4 K/mm3 (4.5-10.0)
[2024-05-13 06:28] LABS: Alanine Aminotransferase 25 U/L (6-35); Albumin Level 2.9 g/dL (3.5-5.1); Alkaline Phosphatase 53 U/L (38-126); Anion Gap 3 mmol/L (4-12); Aspartate Amino Transferase 15 U/L (14-36); Bilirubin,Total 0.8 mg/dL (0.2-1.3); Blood Urea Nitrogen 49 mg/dL (7-17); Carbon Dioxide 34 mmol/L (22-30); Chloride 98 mmol/L (98-107); Estimated CRCL calculation 80 ml/min; Estimated Glomerular Filt Rate > 60; Glucose 271 mg/dL (65-110); Magnesium 2.1 mg/dL (1.6-2.3); Phosphorus 3.2 mg/dL (2.5-4.5); Sodium 135 mmol/L (137-145)
[2024-05-13] MEDS: dexmedeTOMIDine 400 MCG/100 ML 400 MCG/100 ML BAG 21.12 MCG IV CONT (07:50)
[2024-05-13] MEDS: ASPIRIN 81 MG ENTERIC TABLET PO (07:57)
[2024-05-13] MEDS: APIXABAN 5 MG TABLET PO ×2 (07:57→20:07)
[2024-05-13] MEDS: lisinopriL 5 MG TABLET PO (07:57)
[2024-05-13] MEDS: PANTOPRAZOLE SODIUM IV 40 MG VIAL IV PUSH (07:57)
[2024-05-13] MEDS: METOPROLOL TARTRATE 25 MG TABLET PO ×2 (07:57→20:07)
[2024-05-13] MEDS: amLODIPine BESYLATE 10 MG TABLET PO (07:57)
[2024-05-13] MEDS: MINERAL OIL/WHITE PETROLATUM OINTMENT 1 APPLIC EACH EYE ×2 (07:58→20:08)
[2024-05-13 08:35] LABS: Glucose Point of Care 158 mg/dl (65-105)
[2024-05-13] MEDS: INSULIN GLARGINE (*BKC) 100 UNITS/ML 60 UNITS SUB-Q (09:09)
--- NOTE | 2024-05-13 10:57 | P.PNINT_ITS ---
Progress Note: A&P Assessment and Plan (1) Acute hypercapnic respiratory failure: Code(s): J96.02 - Acute respiratory failure with hypercapnia Status: Acute Assessment and Plan: Acute hypercapnic respiratory failure despite being on BiPAP, patient had altered mental status, hallucinations with worsening ABGs, patient is a smoker, will have packet per day for many years per daughter, no formal diagnosis of C OPD but given her hypercapnic respiratory failure, patient may have COPD and may benefit from pulmonary consult as outpatient -intubated on in the early hours of 05/04/2024 -currently on CMV mode of ventilation, -likely related to pneumonia secondary to influenza -continue Xopenex and Atrovent nebulizer since patient had AFib RVR on admission -status post 5 day course of azithromycin, -05/05: Vancomycin discontinue, MRSA screen negative -status post Solu-Medrol -status post cefepime times 10 days -continue fentanyl and Versed infusion, maintain RASS of 0 to -2, daily sedation vacation 05/08: Chest X ray shows bilateral infiltrates, pneumonia versus pulmonary edema, patient is positive fluid balance, will diurese with Lasix x1-with sinan quate diuresis 05/09: Chest x-ray and ABGs, will diurese again today. White count has normalized, patient is afebrile 05/10: Chest x-ray continues to show extensive bilateral airspace disease consi stent with possible pulmonary edema versus pneumonia. Diurese again today. Initially had placed patient on pressure support ventilation 03/05, she was tachycardic and not getting adequate tidal volumes switched to ASV mode, currently tolerating well 03/10: Patient tolerated ASV mode all day yesterday and was placed back on CMV mode overnight. Diuresed well, creatinine improving. Will diurese again today. Patient remains on Precedex infusion, placed on pressure support ventilation 03/02 I have asked the RT to start decreasing her pressure support to 10/5 and then 8/. Chest x-ray this morning continues to show patchy bilateral airspace consolidation could be pulmonary edema versus bilateral pneumonia 03/11: Patient on CMV mode of ventilation, requiring 28% FiO2. Chest x-ray continues to show stable diffuse lung disease consistent with pneumonia. Patient SBT, did not tolerate, was tachypneic, tachycardic, low tidal volumes. Patient was then placed on pressure support ventilation /, lasted all day, in the evening she was switched to CMV mode of ventilation. According the RT and RN patient was breathing in the upper 20s and low 30s. 03/12: Patient again placed on pressure support ventilation 10/5 hoping to continue decrease and extubate but patient has been tachypneic in the low 30s, RSBI is elevated. Will diurese again today. Chest x-ray continue shows unchanged airspace opacities bilaterally (2) Influenza: Code(s): J11.1 - Influenza due to unidentified influenza virus with other respiratory manifestations Status: Acute Assessment and Plan: Influenza A positive, completed the 5 day course of Tamiflu (3) PNA (pneumonia): Qualifiers: Pneumonia type: due to influenza A virus Qualified Code(s): J10.00 - Influenza due to other identified influenza virus with unspecified type of pneumonia Code(s): J18.9 - Pneumonia, unspecified organism Status: Acute Assessment and Plan: Pneumonia likely related to influenza/community-acquired -continue antibiotics as above -currently on mechanical ventilation (4) UTI (urinary tract infection): Qualifiers: Urinary tract infection type: acute cystitis Hematuria presence: without hematuria Qualified Code(s): N30.00 - Acute cystitis without hematuria Code(s): N39.0 - Urinary tract infection, site not specified Status: Acute Assessment and Plan: Urinalysis reflective UTI -continue antibiotics as above -05/03: urine cultures growing E coli, pansensitive (5) Atrial fibrillation with RVR: Code(s): I48.91 - Unspecified atrial fibrillation Status: Acute Assessment and Plan: AFib RVR on admission, initially was started on heparin infusion and diltiazem infusion, which were later discontinued -heart rate better controlled, patient was dropping her heart rates in the 60s with diltiazem infusion was stopped -continue to monitor -remains in AFib, rate controlled -continue home Eliquis and metoprolol (6) Type 2 diabetes mellitus with hyperglycemia: Qualifiers: Diabetes mellitus joint terminal attack controller insulin use: with [facility] use Qualified Code(s): E11.65 - Type 2 diabetes mellitus with hyperglycemia; Z79.4 - [facility] (current) use of insulin Code(s): E11.65 - Type 2 diabetes mellitus with hyperglycemia Status: Chronic Assessment and Plan: Accu-Cheks and sliding scale insulin -remains hyperglycemic, will decrease Lantus to 60 units daily -now on Glucerna tube feeds (7) Fall: Code(s): W19.XXXA - Unspecified fall, initial encounter Status: Acute Assessment and Plan: Patient status post fall at home with contusion to the left eye CT head did not show any acute intracranial hemorrhage or suspicious mass effect, left frontal scalp hematoma without underlying fracture CT cervical spine: Straightening of the normal curvature of the cervical spine, likely muscular in origin. Degenerative disease, without acute fracture. CT chest abdomen pelvis: No acute evidence of traumatic injury Patient will require PT/OT when she is extubated (8) Essential hypertension: Code(s): I10 - Essential (primary) hypertension Status: Chronic Assessment and Plan: Patient intubated and sedated, blood pressures remained stable, -continue amlodipine and metoprolol. 03/10: Restarted home lisinopril Plan DVT prophylaxis: Apixaban Stress ulcer prophylaxis: Protonix Nutrition: Continues tube feeds, continue MiraLax p.r.n. and senna Code Status: Full code Critical Care Time Spent: 32 minutes Discussed with family and updated them with her condition and plan of care. Due to a high probability of clinically significant, life threatening deterioration, the patient required my highest level of preparedness to intervene emergently and I personally spent this critical care time directly and personally managing the patient. This critical care time included obtaining a history; examining the patient; pulse oximetry; ordering and review of studies; arranging urgent treatment with development of a management plan; evaluation of patient's response to treatment; frequent reassessment; and discussions with other providers. It was exclusive of separately billable procedures and treating other patients and teaching time. Please see Assessment and Plan section and the rest of the note for further information on patient assessment and treatment This dictation may have been done utilizing a voice recognition system. Attempts have been made to correct errors. However, there may be uncorrected grammatical, spelling, and recognitions errors present. Subjective Date/time seen: 05/13/24 10:57 Interval history: Reason for consult: Acute hypercapnic respiratory failure, fall, contusion to left eye, fatigue, shortness of breath, generalized weakness, influenza A positive 05/13/2024: Patient seen and examined the ICU, remains intubated on CMV mode of ventilation, peep of 8 and 28% FiO2. Remains on Precedex infusion. Opens her eyes, follows simple commands in all extremities and nods to questions. Hemodynamically stable, remains in AFib, rate controlled. Responding well to diuresis. His afebrile, tolerating tube feeds, positive bowel movements. Tolerated pressure support ventilation 10/5 all day yesterday, and then was switched to CMV mode overnight Review of Systems Review of Systems: ROS unobtainable: Yes unobtainable due to endotracheal tube and unobtainable due to medical condition Exam Narrative: General: Intubated and sedated, in no acute distress HEENT:? Right pupil is reactive, left periorbital hematoma, ecchymosis and swelling, swelling of the left eye decreasing, able to open the eye, chemosis, left pupil also reactive to light, ETT in place Neck:? Supple Respiratory:? Coarse breath sounds bilaterally, rales right > left. No wheezing, adequate air entry Cardiac:? Irregularly irregular, rate controlled Abdomen:? Soft, nontender, obese, hypoactive bowel sounds Extremities:? Bilateral lower extremity edema improving, palpable pedal pulses Neuro:? Patient is intubated, on Precedex infusion, opens her eyes, follows simple commands and nods to questions Skin:? [place] skin, dry, erythematous, not warm. Psych:? Unable to assess at this time Objective Data Vital Signs Vital Signs: Vital Signs - 24 hr 05/12/24 11:17 05/12/24 11:43 05/12/24 12:00 Temperature 99.8 F H Pulse Rate 87 87 86 Respiratory Rate 28 H 28 H 25 H Blood Pressure 151/77 H Pulse Oximetry 95 Oxygen Delivery Fraction of Inspired Oxygen 05/12/24 12:00 05/12/24 12:00 05/12/24 12:00 Temperature Pulse Rate 88 88 Respiratory Rate 26 H Blood Pressure Pulse Oximetry 96 Oxygen Delivery Mechanical Ventilation Fraction of Inspired Oxygen 05/12/24 12:00 05/12/24 14:00 05/12/24 14:00 Temperature Pulse Rate 88 86 81 Respiratory Rate 26 H 25 H Blood Pressure Pulse Oximetry Oxygen Delivery Fraction of Inspired Oxygen 05/12/24 14:00 05/12/24 15:15 05/12/24 15:15 Temperature 99.9 F H Pulse Rate 81 86 93 Respiratory Rate 25 H 28 H Blood Pressure 140/83 Pulse Oximetry 95 96 Oxygen Delivery Mechanical Ventilation Fraction of Inspired Oxygen 28 05/12/24 16:00 05/12/24 16:00 05/12/24 16:00 Temperature Pulse Rate 83 83 Respiratory Rate 24 H Blood Pressure Pulse Oximetry 96 Oxygen Delivery Mechanical Ventilation Fraction of Inspired Oxygen 28 28 05/12/24 16:00 05/12/24 16:00 05/12/24 17:24 Temperature 99.6 F Pulse Rate 83 87 85 Respiratory Rate 24 H 25 H 26 H Blood Pressure 121/74 Pulse Oximetry 95 Oxygen Delivery Fraction of Inspired Oxygen 05/12/24 17:36 05/12/24 18:00 05/12/24 18:00 Temperature Pulse Rate 85 86 86 Respiratory Rate 26 H 25 H Blood Pressure Pulse Oximetry Oxygen Delivery Fraction of Inspired Oxygen 05/12/24 18:00 05/12/24 20:00 05/12/24 20:00 Temperature 99.6 F Pulse Rate 85 84 Respiratory Rate 25 H 24 H 24 H Blood Pressure 140/85 Pulse Oximetry 97 97 Oxygen Delivery Mechanical Ventilation Fraction of Inspired Oxygen 28 05/12/24 20:00 05/12/24 20:00 05/12/24 20:00 Temperature 99.6 F Pulse Rate 86 85 Respiratory Rate 29 H Blood Pressure 145/81 H Pulse Oximetry 97 Oxygen Delivery Fraction of Inspired Oxygen 05/12/24 20:10 05/12/24 20:52 05/12/24 20:54 Temperature Pulse Rate 89 80 78 Respiratory Rate 23 H Blood Pressure Pulse Oximetry 98 Oxygen Delivery Mechanical Ventilation Fraction of Inspired Oxygen 05/12/24 20:58 05/12/24 22:00 05/12/24 22:00 Temperature Pulse Rate 83 79 86 Respiratory Rate 23 H 24 H Blood Pressure Pulse Oximetry Oxygen Delivery Fraction of Inspired Oxygen 05/12/24 22:00 05/12/24 22:39 05/12/24 22:39 Temperature 99.6 F Pulse Rate 81 78 78 Respiratory Rate 26 H 33 H 33 H Blood Pressure 140/71 Pulse Oximetry 96 Oxygen Delivery Fraction of Inspired Oxygen 05/12/24 23:33 05/13/24 00:00 05/13/24 00:00 Temperature Pulse Rate 79 83 Respiratory Rate 28 H 28 H Blood Pressure Pulse Oximetry 95 95 Oxygen Delivery Mechanical Ventilation Mechanical Ventilation Fraction of Inspired Oxygen 28 05/13/24 00:00 05/13/24 00:00 05/13/24 00:00 Temperature 99.9 F H Pulse Rate 83 83 Respiratory Rate 28 H Blood Pressure 144/92 H Pulse Oximetry 95 Oxygen Delivery Fraction of Inspired Oxygen 28 05/13/24 02:00 05/13/24 02:00 05/13/24 02:00 Temperature 99.7 F H Pulse Rate 79 81 79 Respiratory Rate 30 H 25 H Blood Pressure 147/80 H Pulse Oximetry 93 Oxygen Delivery Fraction of Inspired Oxygen 05/13/24 02:04 05/13/24 02:04 05/13/24 02:15 Temperature Pulse Rate 74 74 74 Respiratory Rate 28 H 28 H Blood Pressure Pulse Oximetry 94 Oxygen Delivery Mechanical Ventilation Fraction of Inspired Oxygen 28 05/13/24 03:00 05/13/24 03:00 05/13/24 04:00 Temperature Pulse Rate 89 89 Respiratory Rate 26 H 26 H 25 H Blood Pressure Pulse Oximetry 93 Oxygen Delivery Mechanical Ventilation Fraction of Inspired Oxygen 28 05/13/24 04:00 05/13/24 04:00 05/13/24 04:00 Temperature 99.6 F Pulse Rate 81 78 Respiratory Rate 25 H Blood Pressure 153/85 H Pulse Oximetry 93 Oxygen Delivery Fraction of Inspired Oxygen 28 05/13/24 04:22 05/13/24 05:25 05/13/24 05:29 Temperature Pulse Rate 73 76 81 Respiratory Rate 28 H 27 H Blood Pressure Pulse Oximetry 93 Oxygen Delivery Mechanical Ventilation Fraction of Inspired Oxygen 28 05/13/24 06:00 05/13/24 06:00 05/13/24 06:00 Temperature 99.7 F H Pulse Rate 80 81 81 Respiratory Rate 29 H 29 H Blood Pressure 142/70 H Pulse Oximetry 93 Oxygen Delivery Fraction of Inspired Oxygen 05/13/24 07:20 05/13/24 07:50 05/13/24 07:54 Temperature Pulse Rate 93 93 85 Respiratory Rate 30 H 30 H 25 H Blood Pressure Pulse Oximetry Oxygen Delivery Fraction of Inspired Oxygen 05/13/24 07:57 05/13/24 07:57 05/13/24 08:00 Temperature 99.7 F H Pulse Rate 81 82 81 Respiratory Rate 29 H Blood Pressure 135/64 Pulse Oximetry 91 93 Oxygen Delivery Mechanical Ventilation Fraction of Inspired Oxygen 28 05/13/24 08:00 05/13/24 08:00 05/13/24 08:00 Temperature Pulse Rate 81 Respiratory Rate 33 H Blood Pressure Pulse Oximetry 91 Oxygen Delivery Mechanical Ventilation Fraction of Inspired Oxygen 28 28 05/13/24 08:02 05/13/24 08:18 05/13/24 09:26 Temperature Pulse Rate 86 84 83 Respiratory Rate 33 H 33 H 32 H Blood Pressure Pulse Oximetry Oxygen Delivery Fraction of Inspired Oxygen 05/13/24 10:00 05/13/24 10:00 Temperature Pulse Rate 86 93 Respiratory Rate 14 Blood Pressure 103/51 L Pulse Oximetry 95 Oxygen Delivery Fraction of Inspired Oxygen Intake/Output Intake/Output: Intake & Output 05/10/24 05/11/24 05/12/24 05/13/24 23:59 23:59 23:59 23:59 Intake Total 7.8 2122.1 2054.1 1112.1 Output Total 2049 2300 3320 750 Balance -22.2 -177.9 -1265.9 362.1 Meds/Results Medications: Active Medications Generic Name Dose Route Start Last Admin Trade Name Freq PRN Reason Stop Dose Admin Acetaminophen 650 mg 05/03/24 22:58 Acetaminophen 325 Mg Tablet PO Q6H PRN Mild Pain (1-3) or Fever Amlodipine Besylate 10 mg 05/06/24 09:50 05/13/24 07:57 Amlodipine Besylate 10 Mg Tablet PO 10 mg DAILY JR Administration Apixaban 5 mg 05/05/24 09:00 05/13/24 07:57 Apixaban 5 Mg Tablet PO 5 mg Q12HR JR Administration Aspirin 81 mg 05/04/24 09:00 05/13/24 07:57 Aspirin 81 Mg Enteric Tablet PO 81 mg DAILY JR Administration Benzocaine 1 lozenge 05/03/24 22:58 Benzocaine/Menthol (*Bkc) 18 Ea Lozenge PO PRN PRN Sore Throat Benzonatate 100 mg 05/03/24 22:58 Benzonatate 100 Mg Capsule PO TID PRN Cough Dextrose 12.5 gm 05/03/24 23:00 Dextrose 50% 25 Gm/50 Ml Syringe IV PUSH PRN PRN Hypoglycemia Protocol Glucagon 1 mg 05/03/24 23:00 Glucagon For Inj 1 Mg Vial IM PRN PRN Hypoglycemia Protocol Glucose 15 gm 05/03/24 23:00 Glucose Oral Gel 15 Gm Of Glucse In 37.5 Gm Tube PO PRN PRN Hypoglycemia Protocol Hydralazine HCl 10 mg 05/06/24 15:04 05/09/24 20:22 Hydralazine Hcl 20 Mg/Ml Vial IV PUSH 10 mg Q4H PRN Administration Blood Pressure - High Dextrose 1,000 mls @ 100 mls/hr 05/03/24 23:00 Dextrose 5% 1,000 Ml IVPB PRN PRN Hypoglycemia Protocol Cefepime HCl 2 gm in 50 mls @ 100 mls/hr 05/05/24 18:00 05/13/24 06:44 Maxipime 2 Gm/Ns 50 Ml IVPB 05/13/24 23:59 Infused Q12H JR Infusion Dexmedetomidine HCl 400 mcg in 100 mls @ 14.08 mls/hr 05/07/24 12:25 05/13/24 09:26 Precedex 400 Mcg/100 Ml IV CONT 0.4 mcg/kg/hr .Q7H7M JR 14.08 mls/hr Titration Protocol 0.4 MCG/KG/HR Insulin Aspart 4 - 8 units 05/07/24 18:00 05/13/24 05:54 Insulin Aspart (*Bkc) 100 Units/Ml SUB-Q Not Given Q6H JR Protocol Insulin Glargine 60 units 05/13/24 09:00 05/13/24 09:09 Insulin Glargine (*Bkc) 100 Units/Ml SUB-Q 60 units DAILY JR Administration Ipratropium [place] 0.5 mg 05/04/24 14:00 05/13/24 07:50 Ipratropium Br 0.02% Inh Soln 0.5 Mg/2.5 Ml Vial INHALATION 0.5 mg Q6HRT JR Administration Levalbuterol HCl 1.25 mg 05/04/24 14:00 05/13/24 07:50 Levalbuterol Neb 1.25 Mg/3 Ml INHALATION 1.25 mg Q6HRT JR Administration Lisinopril 5 mg 05/11/24 09:00 05/13/24 07:57 Lisinopril 5 Mg Tablet PO 5 mg DAILY JR Administration Metoprolol Tartrate 25 mg 05/05/24 09:00 05/13/24 07:57 Metoprolol Tartrate 25 Mg Tablet PO 25 mg Q12HR JR Administration Midazolam HCl 2 mg 05/04/24 05:14 05/11/24 14:03 Midazolam Hcl (*Crx) 2 Mg/2 Ml Vial IV PUSH 2 mg Q5M PRN Administration ventilator asynchrony Midazolam HCl 2 mg 05/09/24 02:49 05/13/24 00:04 Midazolam Hcl (*Crx) 2 Mg/2 Ml Vial IV PUSH 2 mg Q2H PRN Administration Sedation Multi-Ingred Cream/Lotion/Oil/Oint 1 applic 05/04/24 09:00 05/13/24 07:58 Mineral Oil/White Petrolatum Ointment EACH EYE 1 applic Q12HR JR Administration Ondansetron HCl 4 mg 05/04/24 03:23 05/07/24 23:35 Ondansetron Inj 4 Mg/2 Ml Vial IV PUSH 4 mg Q6H PRN Administration Nausea And Vomiting Pantoprazole Sodium 40 mg 05/04/24 09:00 05/13/24 07:57 Pantoprazole Sodium Iv 40 Mg Vial IV PUSH 40 mg DAILY JR Administration Polyethylene Glycol 17 gm 05/09/24 09:44 Polyethylene Glycol 3350 17 Gm Powd.Pack PO QAM PRN Constipation Senna/Docusate Sodium 1 tab 05/05/24 21:00 05/12/24 20:10 Senna/Docusate Sodium Tablet PO 1 tab HS JR Administration Sodium Chloride 10 ml 05/04/24 22:00 05/13/24 05:55 Central Line Flush IV PUSH 10 ml Q8HR JR Administration Sodium Chloride 10 ml 05/04/24 14:16 Central Line Flush IV PUSH PRN PRN with TPN bag changes Sodium Chloride 20 ml 05/04/24 14:16 05/08/24 05:23 Central Line Flush IV PUSH 20 ml PRN PRN Administration after blood draws Radiology Results: ITS Impressions Head CT 05/03/24 19:02 Impression: No acute intracranial hemorrhage or suspicious mass effect. Left frontal scalp hematoma without underlying fracture. Cervical Spine CT 05/03/24 19:08 Impression: Straightening of the normal curvature of the cervical spine, likely muscular in origin. Degenerative disease, without acute fracture. Chest/Abdomen/Pelvis CT 05/03/24 19:11 IMPRESSION: No cross-sectional imaging evidence of acute traumatic injury. Innumerable nonacute findings, as detailed above. Renal Ultrasound 05/05/24 08:23 IMPRESSION: 1. Normal kidneys. No hydronephrosis. Abdomen X-Ray 05/08/24 08:26 IMPRESSION: 1. No free intraperitoneal gas or dilated gas-filled loops of bowel to suggest obstruction. 2. Bilateral airspace opacities consistent with atelectasis or pneumonia. Chest X-Ray 05/13/24 06:52 IMPRESSION: 1. Unchanged airspace opacities in the bilateral lower lung zones which could represent atelectasis and/or pneumonia. 2. Cardiomegaly. Labs Labs: Laboratory Results - last 24 hr 05/05/24 05/12/24 05/12/24 08:53 11:40 18:01 WBC RBC Hgb Hct MCV MCH MCHC RDW Plt Count MPV Immature Gran % (Auto) Neut % (Auto) Lymph % (Auto) [place] % (Auto) Eos % (Auto) Baso % (Auto) Lymph # (Auto) [place] # (Auto) Eos # (Auto) Baso # (Auto) Abs Immat Gran (auto) Absolute Neuts (auto) Absolute Nucleated RBC Nucleated RBC % Puncture Site ABG pH ABG pCO2 ABG pO2 ABG PO2/FiO2 Ratio ABG HCO3 ABG O2 Saturation ABG O2 Content ABG Base Excess A-a Gradient Oxyhemoglobin Carboxyhemoglobin Methemoglobin Reduced Hemoglobin Total Hemoglobin O2 Delivery Device O2 Liters/Min Minute Volume Vent Rate Vent Mode FiO2 Tidal Volume PEEP Peak Inspir Pressure Pressure Support Sodium Potassium Chloride Carbon Dioxide Anion Gap BUN Creatinine Estim Creat Clear Calc Estimated GFR Glucose POC Capillary Glucose 264 H 205 H Calcium Phosphorus Magnesium Total Bilirubin AST ALT Alkaline Phosphatase Total Protein Albumin Ur Random Creatinine 141 Ur Random Chloride <20 L U Random Chloride/Creat See note 05/13/24 05/13/24 05/13/24 00:10 04:48 05:50 WBC RBC Hgb Hct MCV MCH MCHC RDW Plt Count MPV Immature Gran % (Auto) Neut % (Auto) Lymph % (Auto) [place] % (Auto) Eos % (Auto) Baso % (Auto) Lymph # (Auto) Howard # (Auto) Eos # (Auto) Baso # (Auto) Abs Immat Gran (auto) Absolute Neuts (auto) Absolute Nucleated RBC Nucleated RBC % Puncture Site Right radial ABG pH 7.445 ABG pCO2 45.4 H ABG pO2 77.8 L ABG PO2/FiO2 Ratio 2.78 ABG HCO3 30.5 H ABG O2 Saturation 95.9 ABG O2 Content 16.5 ABG Base Excess 5.7 A-a Gradient 68.3 Oxyhemoglobin 94.6 Carboxyhemoglobin 1.0 Methemoglobin 0.3 Reduced Hemoglobin 4.1 Total Hemoglobin 12.4 O2 Delivery Device Ventilator O2 Liters/Min Not Reportable Minute Volume Not Reportable Vent Rate 22 Vent Mode Cmv FiO2 28 Tidal Volume 390 PEEP 8 Peak Inspir Pressure Not Reportable Pressure Support Not Reportable Sodium Potassium Chloride Carbon Dioxide Anion Gap BUN Creatinine Estim Creat Clear Calc Estimated GFR Glucose POC Capillary Glucose 160 H 134 H Calcium Phosphorus Magnesium Total Bilirubin AST ALT Alkaline Phosphatase Total Protein Albumin Ur Random Creatinine Ur Random Chloride U Random Chloride/Creat 05/13/24 05/13/24 05:53 08:17 WBC 10.4 H RBC 3.86 L Hgb 11.2 L Hct 36.0 L MCV 93.3 MCH 29.0 MCHC 31.1 L RDW 14.0 Plt Count 160 MPV 11.1 H Immature Gran % (Auto) 0.7 H Neut % (Auto) 76.9 H Lymph % (Auto) 8.3 L [place] % (Auto) 10.2 H Eos % (Auto) 3.5 Baso % (Auto) 0.4 Lymph # (Auto) 0.87 L [place] # (Auto) 1.1 H Eos # (Auto) 0.4 H Baso # (Auto) 0.0 Abs Immat Gran (auto) 0.07 H Absolute Neuts (auto) 8.0 H Absolute Nucleated RBC 0.000 Nucleated RBC % 0.0 Puncture Site ABG pH ABG pCO2 ABG pO2 ABG PO2/FiO2 Ratio ABG HCO3 ABG O2 Saturation ABG O2 Content ABG Base Excess A-a Gradient Oxyhemoglobin Carboxyhemoglobin Methemoglobin Reduced Hemoglobin Total Hemoglobin O2 Delivery Device O2 Liters/Min Minute Volume Vent Rate Vent Mode FiO2 Tidal Volume PEEP Peak Inspir Pressure Pressure Support Sodium 135 L Potassium 4.0 Chloride 98 Carbon Dioxide 34 H Anion Gap 3 L BUN 49 H Creatinine 0.77 Estim Creat Clear Calc 80 Estimated GFR > 60 Glucose 271 H POC Capillary Glucose 158 H Calcium 9.0 Phosphorus 3.2 Magnesium 2.1 Total Bilirubin 0.8 AST 15 ALT 25 Alkaline Phosphatase 53 Total Protein 6.0 L Albumin 2.9 L Ur Random Creatinine Ur Random Chloride U Random Chloride/Creat Quality VTE Prophylaxis VTE prophylaxis: pharmacologic ordered
[2024-05-13] MEDS: BUMETANIDE INJ 1 MG/4 ML VIAL 2 MG IV PUSH ×2 (11:25→20:08)
[2024-05-13 11:50] LABS: Glucose Point of Care 172 mg/dl (65-105)
[2024-05-13] MEDS: dexmedeTOMIDine 400 MCG/100 ML 400 MCG/100 ML BAG 14.08 MCG IV CONT ×2 (12:47→19:18)
[2024-05-13] MEDS: SENNA/DOCUSATE SODIUM TABLET 1 TAB PO (20:07)
[2024-05-13] MEDS: CITALOPRAM HYDROBROMIDE 20 MG TABLET 40 MG PO (20:07)
[2024-05-13 21:15] LABS: Glucose Point of Care 162 mg/dl (65-105)
[2024-05-14] VITALS (32 sets, daily range): BP systolic 116–150; BP diastolic 68–92; PULSE 65–102; RESP 17–28; TEMP 36.8–37.6; O2SAT 92–97
[2024-05-14 00:38] LABS: Glucose Point of Care 148 mg/dl (65-105)
[2024-05-14] MEDS: dexmedeTOMIDine 400 MCG/100 ML 400 MCG/100 ML BAG 17.6 MCG IV CONT (00:39)
[2024-05-14] MEDS: LEVALBUTEROL NEB 1.25 MG/3 ML INHALATION ×4 (02:16→20:44)
[2024-05-14] MEDS: IPRATROPIUM BR 0.02% INH SOLN 0.5 MG/2.5 ML VIAL INHALATION ×4 (02:16→20:44)
[2024-05-14] MEDS: ONDANSETRON INJ 4 MG/2 ML VIAL IV PUSH (03:54)
[2024-05-14 04:01] LABS: Basophils Absolute Auto 0.1 K/mm3 (0.0-0.1); Basophils Percent Auto 0.5 % (0.2-1.2); Eosinophils Absolute Auto 0.3 K/mm3 (0-0.3); Eosinophils Percent Auto 3.2 % (0-4.4); Hematocrit 35.9 % (37.0-47.0); Hemoglobin 11.5 g/dL (12.0-15.0); Immature Granulocyte Absolute 0.05 K/mm3 (0.00-0.031); Immature Granulocyte Percent A 0.5 % (0-0.5); Lymphocytes Absolute Auto 0.89 K/mm3 (0.9-3.2); Mean Corpuscular Hemoglobin 29.7 pg (26-34); Mean Corpuscular Volume 92.8 fl (80-100); Mean Platelet Volume 11.1 fl (7.4-10.4); Monocytes Absolute Auto 0.9 K/mm3 (0.1-0.6); Monocytes Percent Auto 8.8 % (2.6-8.5); Neutrophils Absolute Auto 7.7 K/mm3 (1.3-6.7); Platelet Count Result 180 k/mm3 (150-375); Red Blood Count 3.87 M/mm3 (4.2-5.4); Red Cell Distribution Width 13.7 % (11.5-14.5); White Blood Count 9.9 K/mm3 (4.5-10.0)
[2024-05-14 04:15] LABS: Alanine Aminotransferase 26 U/L (6-35); Alkaline Phosphatase 61 U/L (38-126); Anion Gap 3 mmol/L (4-12); Aspartate Amino Transferase 18 U/L (14-36); Bilirubin,Total 0.8 mg/dL (0.2-1.3); Blood Urea Nitrogen 51 mg/dL (7-17); Calcium 9.2 mg/dL (8.4-10.2); Carbon Dioxide 37 mmol/L (22-30); Chloride 100 mmol/L (98-107); Estimated CRCL calculation 70 ml/min; Estimated Glomerular Filt Rate > 60; Glucose 148 mg/dL (65-110); Phosphorus 3.3 mg/dL (2.5-4.5); Potassium 3.7 mmol/L (3.4-5.0); Sodium 140 mmol/L (137-145)
--- NOTE | 2024-05-14 05:29 | PCRCNOTE ---
Pt, would not allow me to draw ABG.
[2024-05-14] MEDS: CENTRAL LINE FLUSH 10 ML IV PUSH ×3 (05:49→22:24)
[2024-05-14 06:54] LABS: Glucose Point of Care 147 mg/dl (65-105)
[2024-05-14] MEDS: dexmedeTOMIDine 400 MCG/100 ML 400 MCG/100 ML BAG 14.08 MCG IV CONT (06:59)
--- NOTE | 2024-05-14 08:12 | P.PNIM_ITS ---
Progress Note: A&P Assessment and Plan (1) Acute respiratory failure with hypoxia and hypercapnia: Code(s): J96.01 - Acute respiratory failure with hypoxia; J96.02 - Acute respiratory failure with hypercapnia Status: Acute (2) NSTEMI (non-ST elevated myocardial infarction): Code(s): I21.4 - Non-ST elevation (NSTEMI) myocardial infarction Status: Acute (3) Atrial fibrillation with RVR: Code(s): I48.91 - Unspecified atrial fibrillation Status: Acute (4) Bilateral cellulitis of lower leg: Code(s): L03.116 - Cellulitis of left lower limb; L03.115 - Cellulitis of right lower limb Status: Acute (5) Sepsis: Qualifiers: Acute respiratory failure type: with hypercapnia Sepsis acute organ dysfunction status: with acute organ dysfunction Sepsis type: sepsis due to unspecified organism Severe sepsis acute organ dysfunction type: acute respiratory failure Severe sepsis shock status: without septic shock Qualified Code(s): A41.9 - Sepsis, unspecified organism; R65.20 - Severe sepsis without septic shock; J96.02 - Acute respiratory failure with hypercapnia Code(s): A41.9 - Sepsis, unspecified organism Status: Acute (6) PNA (pneumonia): Qualifiers: Pneumonia type: due to influenza A virus Qualified Code(s): J10.00 - Influenza due to other identified influenza virus with unspecified type of pneumonia Code(s): J18.9 - Pneumonia, unspecified organism Status: Acute Plan (1) Acute hypercapnic respiratory failure: Code(s): J96.02 - Acute respiratory failure with hypercapnia Status: Acute Assessment and Plan: Upon arrival, patient was found have hypercapnic and hypoxemic respiratory failure, patient was placed on BiPAP initially. Patient developed a hallucination, confusion Patient was intubated on May 04 Suspecting resulting from COPD exacerbation due to pneumonia and influenza infection and exacerbation of diastolic heart failure Extubated May 14 Multifocal pneumonia and influenza a infection Patient received 5 days azithromycin Also received vancomycin, stopped due to negative MRSA screening continue Xopenex and Atrovent nebulizer since patient had AFib RVR on admission status post Solu-Medrol status post cefepime times 10 days Acute on chronic diastolic heart failure Echocardiogram November 16 EF 65-70%, and left ventricular diastolic function is abnormal X-ray showed diffuse lung disease consistent with pneumonia and also fluid overload Patient received IV Bumex in the ICU Continue Bumex 2 mg daily IV f/u CXR Influenza: Code(s): J11.1 - Influenza due to unidentified influenza virus with other respiratory manifestations Status: Acute Assessment and Plan: Influenza A positive, completed the 5 day course of Tamiflu Multifocal pneumonia Qualifiers: Pneumonia type: due to influenza A virus Qualified Code(s): J10.00 - Influenza due to other identified influenza virus with unspecified type of pneumonia Code(s): J18.9 - Pneumonia, unspecified organism Status: Acute Assessment and Plan: Pneumonia likely related to influenza/community-acquired Received antibiotics as above -currently on mechanical ventilation UTI (urinary tract infection): Qualifiers: Urinary tract infection type: acute cystitis Hematuria presence: without hematuria Qualified Code(s): N30.00 - Acute cystitis without hematuria Code(s): N39.0 - Urinary tract infection, site not specified Status: Acute Assessment and Plan: Urinalysis reflective UTI -continue antibiotics as above -05/03: urine cultures growing E coli, pansensitive Atrial fibrillation with RVR: Code(s): I48.91 - Unspecified atrial fibrillation Status: Acute Assessment and Plan: AFib RVR on admission, initially was started on heparin infusion and diltiazem infusion, which were later discontinued -heart rate better controlled, patient was dropping her heart rates in the 60s with diltiazem infusion was stopped -continue to monitor -remains in AFib, rate controlled -continue home Eliquis and metoprolol Type 2 diabetes mellitus with hyperglycemia: Qualifiers: Diabetes mellitus longterm insulin use: with director long term care use Qualified Code(s): E11.65 - Type 2 diabetes mellitus with hyperglycemia; 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 Code(s): E11.65 - Type 2 diabetes mellitus with hyperglycemia Status: Chronic Assessment and Plan: Accu-Cheks and sliding scale insulin -remains hyperglycemic, will decrease Lantus to 60 units daily -now on Glucerna tube feeds (7) Fall: Code(s): W19.XXXA - Unspecified fall, initial encounter Status: Acute Assessment and Plan: Patient status post fall at home with contusion to the left eye CT head did not show any acute intracranial hemorrhage or suspicious mass effect, left frontal scalp hematoma without underlying fracture CT cervical spine: Straightening of the normal curvature of the cervical spine, likely muscular in origin. Degenerative disease, without acute fracture. CT chest abdomen pelvis: No acute evidence of traumatic injury Patient will require PT/OT when she is extubated (8) Essential hypertension: Code(s): I10 - Essential (primary) hypertension Status: Chronic Assessment and Plan: Patient intubated and sedated, blood pressures remained stable, -continue amlodipine and metoprolol. 03/10: Restarted home lisinopril Plan DVT prophylaxis: Apixaban Stress ulcer prophylaxis: Protonix Nutrition: Continues tube feeds, continue MiraLax p.r.n. and senna Subjective Date/time seen: 05/14/24 08:12 Interval history: Patient is extubated today, tolerated extubation well. Patient denies dysarthria, choking. Patient still has general weakness, has cough and shortness breath with exertion Patient is afebrile over the night, still have tachycardia, blood pressure stable, patient is on 2 L oxygen via nasal cannular Exam Narrative: GENERAL: Ill-appearing in no acute distress. Well-nourished. - EYES: EOMI. Anicteric. - HENT: Moist mucous membranes. - LUNGS: Coarse breath sound bilaterall y, no wheezing, rhonchi, or rales. - CARDIOVASCULAR: Regular rate and rhyth m. No murmur. No JVD. - ABDOMEN: Soft, non-tender and non-dist ended. No palpable masses. - EXTREMITIES: No edema. Peripheral puls es 2+. Non-tender. - NEUROLOGIC: No focal neurological defi cits. CN II-XII grossly intact. General weakness - PSYCHIATRIC: Awake, Alert and oriented x 3. Appropriate mood and affect. - SKIN: No rashes or lesions. Warm. - LYMPH: No cervical lymphadenopathy. Objective Data Vital Signs Vital Signs: Vital Signs - 24 hr 05/13/24 08:18 05/13/24 09:26 05/13/24 10:00 Temperature Pulse Rate 84 83 86 Respiratory Rate 33 H 32 H 14 Blood Pressure 103/51 L Pulse Oximetry 95 Oxygen Delivery Fraction of Inspired Oxygen 05/13/24 10:00 05/13/24 11:05 05/13/24 12:00 Temperature Pulse Rate 93 91 Respiratory Rate Blood Pressure Pulse Oximetry 94 94 Oxygen Delivery Mechanical Ventilation Mechanical Ventilation Fraction of Inspired Oxygen 28 05/13/24 12:00 05/13/24 12:00 05/13/24 12:47 Temperature 100.1 F H Pulse Rate 86 84 89 Respiratory Rate 32 H 34 H Blood Pressure 141/83 H Pulse Oximetry 94 Oxygen Delivery Fraction of Inspired Oxygen 05/13/24 12:47 05/13/24 13:06 05/13/24 13:15 Temperature Pulse Rate 89 90 88 Respiratory Rate 34 H 22 H Blood Pressure Pulse Oximetry 92 Oxygen Delivery Mechanical Ventilation Fraction of Inspired Oxygen 05/13/24 13:27 05/13/24 14:00 05/13/24 14:00 Temperature 100 F H Pulse Rate 88 90 90 Respiratory Rate 25 H 24 H Blood Pressure 145/101 H Pulse Oximetry 94 Oxygen Delivery Fraction of Inspired Oxygen 05/13/24 16:00 05/13/24 16:00 05/13/24 16:00 Temperature Pulse Rate 88 Respiratory Rate 20 Blood Pressure Pulse Oximetry 95 Oxygen Delivery Mechanical Ventilation Fraction of Inspired Oxygen 28 05/13/24 16:00 05/13/24 17:09 05/13/24 18:00 Temperature 99.7 F H Pulse Rate 80 90 82 Respiratory Rate 20 Blood Pressure 120/70 Pulse Oximetry 95 95 Oxygen Delivery Mechanical Ventilation Fraction of Inspired Oxygen 05/13/24 18:00 05/13/24 18:05 05/13/24 19:18 Temperature 99.8 F H Pulse Rate 82 86 83 Respiratory Rate 21 H 24 H 24 H Blood Pressure 143/62 H Pulse Oximetry 96 Oxygen Delivery Fraction of Inspired Oxygen 05/13/24 19:18 05/13/24 20:00 05/13/24 20:00 Temperature 99.5 F Pulse Rate 83 81 Respiratory Rate 24 H 20 Blood Pressure 114/90 Pulse Oximetry 96 Oxygen Delivery Fraction of Inspired Oxygen 05/13/24 20:00 05/13/24 20:00 05/13/24 20:00 Temperature Pulse Rate 81 87 Respiratory Rate 20 Blood Pressure Pulse Oximetry Oxygen Delivery Mechanical Ventilation Fraction of Inspired Oxygen 05/13/24 20:07 05/13/24 20:37 05/13/24 20:37 Temperature Pulse Rate 84 78 78 Respiratory Rate 15 Blood Pressure Pulse Oximetry 96 Oxygen Delivery Mechanical Ventilation Fraction of Inspired Oxygen 05/13/24 20:46 05/13/24 22:00 05/13/24 22:00 Temperature 99.6 F Pulse Rate 77 83 78 Respiratory Rate 18 18 Blood Pressure 138/80 Pulse Oximetry 95 Oxygen Delivery Fraction of Inspired Oxygen 05/13/24 22:00 05/13/24 23:00 05/14/24 00:00 Temperature Pulse Rate 78 84 79 Respiratory Rate 18 22 H Blood Pressure Pulse Oximetry 95 Oxygen Delivery Mechanical Ventilation Fraction of Inspired Oxygen 28 05/14/24 00:00 05/14/24 00:00 05/14/24 00:00 Temperature 99.7 F H Pulse Rate 82 82 Respiratory Rate 21 H Blood Pressure 147/68 H Pulse Oximetry 94 Oxygen Delivery Fraction of Inspired Oxygen 28 05/14/24 00:00 05/14/24 00:39 05/14/24 00:39 Temperature Pulse Rate 79 79 Respiratory Rate 19 19 Blood Pressure Pulse Oximetry Oxygen Delivery Mechanical Ventilation Fraction of Inspired Oxygen 28 05/14/24 02:00 05/14/24 02:00 05/14/24 02:00 Temperature 99.5 F Pulse Rate 76 76 76 Respiratory Rate 20 20 Blood Pressure 134/76 Pulse Oximetry 95 Oxygen Delivery Fraction of Inspired Oxygen 05/14/24 02:16 05/14/24 02:16 05/14/24 04:00 Temperature 99.4 F Pulse Rate 77 77 76 Respiratory Rate 22 H 17 Blood Pressure 136/82 Pulse Oximetry 95 94 Oxygen Delivery Mechanical Ventilation Fraction of Inspired Oxygen 28 05/14/24 04:00 05/14/24 04:00 05/14/24 04:00 Temperature Pulse Rate 76 72 Respiratory Rate 17 Blood Pressure Pulse Oximetry Oxygen Delivery Fraction of Inspired Oxygen 28 05/14/24 04:00 05/14/24 04:15 05/14/24 06:00 Temperature Pulse Rate 74 70 Respiratory Rate Blood Pressure Pulse Oximetry 95 Oxygen Delivery Mechanical Ventilation Mechanical Ventilation Fraction of Inspired Oxygen 28 28 05/14/24 06:00 05/14/24 06:00 05/14/24 06:59 Temperature Pulse Rate 70 70 65 Respiratory Rate 18 18 17 Blood Pressure 142/85 H Pulse Oximetry 93 Oxygen Delivery Fraction of Inspired Oxygen 05/14/24 06:59 Temperature Pulse Rate 65 Respiratory Rate 17 Blood Pressure Pulse Oximetry Oxygen Delivery Fraction of Inspired Oxygen Intake/Output Intake/Output: Intake & Output 05/11/24 05/12/24 05/13/24 05/14/24 23:59 23:59 23:59 23:59 Intake Total 2122.1 2054.1 2116.1 799.6 Output Total 2300 3320 2550 1700 Balance -177.9 -1265.9 -433.9 -900.4 Meds/Results Medications: Active Medications Generic Name Dose Route Start Last Admin Trade Name Freq PRN Reason Stop Dose Admin Acetaminophen 650 mg 05/03/24 22:58 Acetaminophen 325 Mg Tablet PO Q6H PRN Mild Pain (1-3) or Fever Amlodipine Besylate 10 mg 05/06/24 09:50 05/13/24 07:57 Amlodipine Besylate 10 Mg Tablet PO 10 mg DAILY JR Administration Apixaban 5 mg 05/05/24 09:00 05/13/24 20:07 Apixaban 5 Mg Tablet PO 5 mg Q12HR JR Administration Aspirin 81 mg 05/04/24 09:00 05/13/24 07:57 Aspirin 81 Mg Enteric Tablet PO 81 mg DAILY JR Administration Benzocaine 1 lozenge 05/03/24 22:58 Benzocaine/Menthol (*Bkc) 18 Ea Lozenge PO PRN PRN Sore Throat Benzonatate 100 mg 05/03/24 22:58 Benzonatate 100 Mg Capsule PO TID PRN Cough Bumetanide 2 mg 05/14/24 09:00 Bumetanide Inj 1 Mg/4 Ml Vial IV PUSH QAM JR Citalopram Hydrobromide 40 mg 05/13/24 21:00 05/13/24 20:07 Citalopram Hydrobromide 20 Mg Tablet PO 40 mg HS JR Administration Dextrose 12.5 gm 05/03/24 23:00 Dextrose 50% 25 Gm/50 Ml Syringe IV PUSH PRN PRN Hypoglycemia Protocol Glucagon 1 mg 05/03/24 23:00 Glucagon For Inj 1 Mg Vial IM PRN PRN Hypoglycemia Protocol Glucose 15 gm 05/03/24 23:00 Glucose Oral Gel 15 Gm Of Glucse In 37.5 Gm Tube PO PRN PRN Hypoglycemia Protocol Hydralazine HCl 10 mg 05/06/24 15:04 05/09/24 20:22 Hydralazine Hcl 20 Mg/Ml Vial IV PUSH 10 mg Q4H PRN Administration Blood Pressure - High Dextrose 1,000 mls @ 100 mls/hr 05/03/24 23:00 Dextrose 5% 1,000 Ml IVPB PRN PRN Hypoglycemia Protocol Dexmedetomidine HCl 400 mcg in 100 mls @ 14.08 mls/hr 05/07/24 12:25 05/14/24 06:59 Precedex 400 Mcg/100 Ml IV CONT 0.4 mcg/kg/hr .Q7H7M JR 14.08 mls/hr Administration Protocol 0.4 MCG/KG/HR Insulin Aspart 4 - 8 units 05/07/24 18:00 05/14/24 05:00 Insulin Aspart (*Bkc) 100 Units/Ml SUB-Q Not Given Q6H JR Protocol Insulin Glargine 60 units 05/13/24 09:00 05/13/24 09:09 Insulin Glargine (*Bkc) 100 Units/Ml SUB-Q 60 units DAILY JR Administration Ipratropium [place] 0.5 mg 05/04/24 14:00 05/14/24 02:16 Ipratropium Br 0.02% Inh Soln 0.5 Mg/2.5 Ml Vial INHALATION 0.5 mg Q6HRT JR Administration Levalbuterol HCl 1.25 mg 05/04/24 14:00 05/14/24 02:16 Levalbuterol Neb 1.25 Mg/3 Ml INHALATION 1.25 mg Q6HRT JR Administration Lisinopril 5 mg 05/11/24 09:00 05/13/24 07:57 Lisinopril 5 Mg Tablet PO 5 mg DAILY JR Administration Metoprolol Tartrate 25 mg 05/05/24 09:00 05/13/24 20:07 Metoprolol Tartrate 25 Mg Tablet PO 25 mg Q12HR JR Administration Midazolam HCl 2 mg 05/04/24 05:14 05/11/24 14:03 Midazolam Hcl (*Crx) 2 Mg/2 Ml Vial IV PUSH 2 mg Q5M PRN Administration ventilator asynchrony Midazolam HCl 2 mg 05/09/24 02:49 05/13/24 00:04 Midazolam Hcl (*Crx) 2 Mg/2 Ml Vial IV PUSH 2 mg Q2H PRN Administration Sedation Multi-Ingred Cream/Lotion/Oil/Oint 1 applic 05/04/24 09:00 05/13/24 20:08 Mineral Oil/White Petrolatum Ointment EACH EYE 1 applic Q12HR JR Administration Ondansetron HCl 4 mg 05/04/24 03:23 05/14/24 03:54 Ondansetron Inj 4 Mg/2 Ml Vial IV PUSH 4 mg Q6H PRN Administration Nausea And Vomiting Pantoprazole Sodium 40 mg 05/04/24 09:00 05/13/24 07:57 Pantoprazole Sodium Iv 40 Mg Vial IV PUSH 40 mg DAILY JR Administration Polyethylene Glycol 17 gm 05/09/24 09:44 Polyethylene Glycol 3350 17 Gm Powd.Pack PO QAM PRN Constipation Senna/Docusate Sodium 1 tab 05/05/24 21:00 05/13/24 20:07 Senna/Docusate Sodium Tablet PO 1 tab HS JR Administration Sodium Chloride 10 ml 05/04/24 22:00 05/14/24 05:49 Central Line Flush IV PUSH 10 ml Q8HR JR Administration Sodium Chloride 10 ml 05/04/24 14:16 Central Line Flush IV PUSH PRN PRN with TPN bag changes Sodium Chloride 20 ml 05/04/24 14:16 05/08/24 05:23 Central Line Flush IV PUSH 20 ml PRN PRN Administration after blood draws Radiology Results: ITS Impressions Head CT 05/03/24 19:02 Impression: No acute intracranial hemorrhage or suspicious mass effect. Left frontal scalp hematoma without underlying fracture. Cervical Spine CT 05/03/24 19:08 Impression: Straightening of the normal curvature of the cervical spine, likely muscular in origin. Degenerative disease, without acute fracture. Chest/Abdomen/Pelvis CT 05/03/24 19:11 IMPRESSION: No cross-sectional imaging evidence of acute traumatic injury. Innumerable nonacute findings, as detailed above. Renal Ultrasound 05/05/24 08:23 IMPRESSION: 1. Normal kidneys. No hydronephrosis. Abdomen X-Ray 05/08/24 08:26 IMPRESSION: 1. No free intraperitoneal gas or dilated gas-filled loops of bowel to suggest obstruction. 2. Bilateral airspace opacities consistent with atelectasis or pneumonia. Chest X-Ray 05/14/24 06:12 IMPRESSION: Small bilateral pleural effusions. Supportive lines and tubes in good position. Labs Labs: Laboratory Results - last 24 hr 05/13/24 05/13/24 05/13/24 08:17 11:23 17:55 WBC RBC Hgb Hct MCV MCH MCHC RDW Plt Count MPV Immature Gran % (Auto) Neut % (Auto) Lymph % (Auto) [place] % (Auto) Eos % (Auto) Baso % (Auto) Lymph # (Auto) [place] # (Auto) Eos # (Auto) Baso # (Auto) Abs Immat Gran (auto) Absolute Neuts (auto) Absolute Nucleated RBC Nucleated RBC % Sodium Potassium Chloride Carbon Dioxide Anion Gap BUN Creatinine Estim Creat Clear Calc Estimated GFR Glucose POC Capillary Glucose 158 H 172 H 162 H Calcium Phosphorus Magnesium Total Bilirubin AST ALT Alkaline Phosphatase Total Protein Albumin 05/14/24 05/14/24 05/14/24 00:34 03:43 06:51 WBC 9.9 RBC 3.87 L Hgb 11.5 L Hct 35.9 L MCV 92.8 MCH 29.7 MCHC 32.0 RDW 13.7 Plt Count 180 MPV 11.1 H Immature Gran % (Auto) 0.5 Neut % (Auto) 78.0 H Lymph % (Auto) 9.0 L [place] % (Auto) 8.8 H Eos % (Auto) 3.2 Baso % (Auto) 0.5 Lymph # (Auto) 0.89 L [place] # (Auto) 0.9 H Eos # (Auto) 0.3 Baso # (Auto) 0.1 Abs Immat Gran (auto) 0.05 H Absolute Neuts (auto) 7.7 H Absolute Nucleated RBC 0.000 Nucleated RBC % 0.0 Sodium 140 Potassium 3.7 Chloride 100 Carbon Dioxide 37 H Anion Gap 3 L BUN 51 H Creatinine 0.89 Estim Creat Clear Calc 70 Estimated GFR > 60 Glucose 148 H POC Capillary Glucose 148 H 147 H Calcium 9.2 Phosphorus 3.3 Magnesium 2.0 Total Bilirubin 0.8 AST 18 ALT 26 Alkaline Phosphatase 61 Total Protein 6.0 L Albumin 3.0 L
[2024-05-14] MEDS: METOPROLOL TARTRATE 25 MG TABLET PO ×2 (08:14→20:34)
[2024-05-14] MEDS: amLODIPine BESYLATE 10 MG TABLET PO (08:14)
[2024-05-14] MEDS: APIXABAN 5 MG TABLET PO ×2 (08:14→20:35)
[2024-05-14] MEDS: lisinopriL 5 MG TABLET PO (08:14)
[2024-05-14] MEDS: ASPIRIN 81 MG ENTERIC TABLET PO (08:14)
[2024-05-14] MEDS: POTASSIUM CHLORIDE 20 MEQ PACKET (FOR LIQUID) 40 MEQ PO (08:15)
[2024-05-14] MEDS: PANTOPRAZOLE SODIUM IV 40 MG VIAL IV PUSH (08:15)
[2024-05-14] MEDS: BUMETANIDE INJ 1 MG/4 ML VIAL 2 MG IV PUSH ×3 (08:15→23:57)
[2024-05-14] MEDS: MINERAL OIL/WHITE PETROLATUM OINTMENT 1 APPLIC EACH EYE (08:15)
[2024-05-14] MEDS: INSULIN GLARGINE (*BKC) 100 UNITS/ML 60 UNITS SUB-Q (08:18)
--- NOTE | 2024-05-14 08:52 | WPDINTPN ---
Progress Note: A&P Assessment and Plan (1) Acute hypercapnic respiratory failure: Code(s): J96.02 - Acute respiratory failure with hypercapnia Status: Acute Assessment and Plan: Acute hypercapnic respiratory failure despite being on BiPAP, patient had altered mental status, hallucinations with worsening ABGs, patient is a smoker, will have packet per day for many years per daughter, no formal diagnosis of COPD but given her hypercapnic respiratory failure, patient may have COPD and may benefit from pulmonary consult as outpatient -intubated on in the early hours of 05/04/2024 -currently on CMV mode of ventilation, -likely related to pneumonia secondary to influenza -continue Xopenex and Atrovent nebulizer since patient had AFib RVR on admission -status post 5 day course of azithromycin, -05/05: Vancomycin discontinue, MRSA screen negative -status post Solu-Medrol -status post cefepime times 10 days -continue fentanyl and Versed infusion, maintain RASS of 0 to -2, daily sedation vacation 05/08: Chest X ray shows bilateral infiltrates, pneumonia versus pulmonary edema, patient is positive fluid balance, will diurese with Lasix x1-with adequate diuresis 05/09: Chest x-ray and ABGs, will diurese again today. White count has normalized, patient is afebrile 05/10: Chest x-ray continues to show extensive bilateral airspace disease consistent with possible pulmonary edema versus pneumonia. Diurese again today. Initially had placed patient on pressure support ventilation 03/05, she was tachycardic and not getting adequate tidal volumes switched to ASV mode, currently tolerating well 03/10: Patient tolerated ASV mode all day yesterday and was placed back on CMV mode overnight. Diuresed well, creatinine improving. Will diurese again today. Patient remains on Precedex infusion, placed on pressure support ventilation 03/02 I have asked the RT to start decreasing her pressure support to / and then 8/. Chest x-ray this morning continues to show patchy bilateral airspace consolidation could be pulmonary edema versus bilateral pneumonia 03/11: Patient on CMV mode of ventilation, requiring 28% FiO2. Chest x-ray continues to show stable diffuse lung disease consistent with pneumonia. Patient SBT, did not tolerate, was tachypneic, tachycardic, low tidal volumes. Patient was then placed on pressure support ventilation 12/31, lasted all day, in the evening she was switched to CMV mode of ventilation. According the RT and RN patient was breathing in the upper 20s and low 30s. 03/12: Patient was on pressure support ventilation 12/31, was tachypneic in the mid 30s, was placed on ASV and lasted all through the day and night on ASV. Diuresed well. Chest x-ray continue shows unchanged airspace opacities bilaterally. 03/13: Patient placed on pressure support ventilation 01/03, respiratory rates have been good, tidal volumes have been adequate, will obtain ABGs and evaluate for extubation (2) Influenza: Code(s): J11.1 - Influenza due to unidentified influenza virus with other respiratory manifestations Status: Acute Assessment and Plan: Influenza A positive, completed the 5 day course of Tamiflu (3) PNA (pneumonia): Qualifiers: Pneumonia type: due to influenza A virus Qualified Code(s): J10.00 - Influenza due to other identified influenza virus with unspecified type of pneumonia Code(s): J18.9 - Pneumonia, unspecified organism Status: Acute Assessment and Plan: Pneumonia likely related to influenza/community-acquired -continue antibiotics as above -currently on mechanical ventilation (4) UTI (urinary tract infection): Qualifiers: Urinary tract infection type: acute cystitis Hematuria presence: without hematuria Qualified Code(s): N30.00 - Acute cystitis without hematuria Code(s): N39.0 - Urinary tract infection, site not specified Status: Acute Assessment and Plan: Urinalysis reflective UTI -continue antibiotics as above -05/03: urine cultures growing E coli, pansensitive (5) Atrial fibrillation with RVR: Code(s): I48.91 - Unspecified atrial fibrillation Status: Acute Assessment and Plan: AFib RVR on admission, initially was started on heparin infusion and diltiazem infusion, which were later discontinued -heart rate better controlled, patient was dropping her heart rates in the 60s with diltiazem infusion was stopped -continue to monitor -remains in AFib, rate controlled -continue home Eliquis and metoprolol (6) Type 2 diabetes mellitus with hyperglycemia: Qualifiers: Diabetes mellitus retirement insulin use: with retirement use Qualified Code(s): E11.65 - Type 2 diabetes mellitus with hyperglycemia; 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 Code(s): E11.65 - Type 2 diabetes mellitus with hyperglycemia Status: Chronic Assessment and Plan: Accu-Cheks and sliding scale insulin -remains hyperglycemic, will decrease Lantus to 60 units daily -now on Glucerna tube feeds (7) Fall: Code(s): W19.XXXA - Unspecified fall, initial encounter Status: Acute Assessment and Plan: Patient status post fall at home with contusion to the left eye CT head did not show any acute intracranial hemorrhage or suspicious mass effect, left frontal scalp hematoma without underlying fracture CT cervical spine: Straightening of the normal curvature of the cervical spine, likely muscular in origin. Degenerative disease, without acute fracture. CT chest abdomen pelvis: No acute evidence of traumatic injury Patient will require PT/OT when she is extubated (8) Essential hypertension: Code(s): I10 - Essential (primary) hypertension Status: Chronic Assessment and Plan: Patient intubated and sedated, blood pressures remained stable, -continue amlodipine and metoprolol. 03/10: Restarted home lisinopril Plan DVT prophylaxis: Apixaban Stress ulcer prophylaxis: Protonix Nutrition: Continues tube feeds, continue MiraLax p.r.n. and senna Code Status: Full code Critical Care Time Spent: 32 minutes Discussed with family and updated them with her condition and plan of care. Due to a high probability of clinically significant, life threatening deterioration, the patient required my highest level of preparedness to intervene emergently and I personally spent this critical care time directly and personally managing the patient. This critical care time included obtaining a history; examining the patient; pulse oximetry; ordering and review of studies; arranging urgent treatment with development of a management plan; evaluation of patient's response to treatment; frequent reassessment; and discussions with other providers. It was exclusive of separately billable procedures and treating other patients and teaching time. Please see Assessment and Plan section and the rest of the note for further information on patient assessment and treatment This dictation may have been done utilizing a voice recognition system. Attempts have been made to correct errors. However, there may be uncorrected grammatical, spelling, and recognitions errors present. Subjective Date/time seen: 05/14/24 08:52 Interval history: Reason for consult: Acute hypercapnic respiratory failure, fall, contusion to left eye, fatigue, shortness of breath, generalized weakness, influenza A positive 05/14/2024: Patient seen and examined the ICU, remains intubated on CMV mode of ventilation, peep of 8 and 28% FiO2. Remains on Precedex infusion. Opens her eyes, follows simple commands in all extremities and nods to questions. Hemodynamically stable, remains in AFib, rate controlled. Responding well to diuresis. His afebrile, tolerating tube feeds, positive bowel movements. Tolerated pressure support ventilation ASV all day yesterday, patient was on pressure support ventilation early during the day yesterday but was tachypneic in the mid 30s so was placed on ASV and remain on ASV overnight Review of Systems Review of Systems: ROS unobtainable: Yes unobtainable due to endotracheal tube and unobtainable due to medical condition Exam Narrative: General: Intubated and sedated, in no acute distress HEENT:? Right pupil is reactive, left periorbital hematoma, ecchymosis and swelling, swelling of the left eye decreasing, able to open the eye, chemosis, left pupil also reactive to light, ETT in place Neck:? Supple Respiratory:? Coarse breath sounds bilaterally, rales right > left. No wheezing, adequate air entry Cardiac:? Irregularly irregular, rate controlled Abdomen:? Soft, nontender, obese, hypoactive bowel sounds Extremities:? Bilateral lower extremity edema improving, palpable pedal pulses Neuro:? Patient is intubated, on Precedex infusion, opens her eyes, follows simple commands and nods to questions Skin:? Swan skin, dry, erythematous, not warm. Psych:? Unable to assess at this time Objective Data Vital Signs Vital Signs: Vital Signs - 24 hr 05/13/24 09:26 05/13/24 10:00 05/13/24 10:00 Temperature Pulse Rate 83 86 93 Respiratory Rate 32 H 14 Blood Pressure 103/51 L Pulse Oximetry 95 Oxygen Delivery Fraction of Inspired Oxygen 05/13/24 11:05 05/13/24 12:00 05/13/24 12:00 Temperature 100.1 F H Pulse Rate 91 86 Respiratory Rate 32 H Blood Pressure 141/83 H Pulse Oximetry 94 94 94 Oxygen Delivery Mechanical Ventilation Mechanical Ventilation Fraction of Inspired Oxygen 28 05/13/24 12:00 05/13/24 12:47 05/13/24 12:47 Temperature Pulse Rate 84 89 89 Respiratory Rate 34 H 34 H Blood Pressure Pulse Oximetry Oxygen Delivery Fraction of Inspired Oxygen 05/13/24 13:06 05/13/24 13:15 05/13/24 13:27 Temperature Pulse Rate 90 88 88 Respiratory Rate 22 H 25 H Blood Pressure Pulse Oximetry 92 Oxygen Delivery Mechanical Ventilation Fraction of Inspired Oxygen 28 05/13/24 14:00 05/13/24 14:00 05/13/24 16:00 Temperature 100 F H Pulse Rate 90 90 Respiratory Rate 24 H 20 Blood Pressure 145/101 H Pulse Oximetry 94 95 Oxygen Delivery Mechanical Ventilation Fraction of Inspired Oxygen 05/13/24 16:00 05/13/24 16:00 05/13/24 16:00 Temperature 99.7 F H Pulse Rate 88 80 Respiratory Rate 20 Blood Pressure 120/70 Pulse Oximetry 95 Oxygen Delivery Fraction of Inspired Oxygen 05/13/24 17:09 05/13/24 18:00 05/13/24 18:00 Temperature 99.8 F H Pulse Rate 90 82 82 Respiratory Rate 21 H Blood Pressure 143/62 H Pulse Oximetry 95 96 Oxygen Delivery Mechanical Ventilation Fraction of Inspired Oxygen 05/13/24 18:05 05/13/24 19:18 05/13/24 19:18 Temperature Pulse Rate 86 83 83 Respiratory Rate 24 H 24 H 24 H Blood Pressure Pulse Oximetry Oxygen Delivery Fraction of Inspired Oxygen 05/13/24 20:00 05/13/24 20:00 05/13/24 20:00 Temperature 99.5 F Pulse Rate 81 Respiratory Rate 20 Blood Pressure 114/90 Pulse Oximetry 96 Oxygen Delivery Mechanical Ventilation Fraction of Inspired Oxygen 28 05/13/24 20:00 05/13/24 20:00 05/13/24 20:07 Temperature Pulse Rate 81 87 84 Respiratory Rate 20 Blood Pressure Pulse Oximetry Oxygen Delivery Fraction of Inspired Oxygen 05/13/24 20:37 05/13/24 20:37 05/13/24 20:46 Temperature Pulse Rate 78 78 77 Respiratory Rate 15 18 Blood Pressure Pulse Oximetry 96 Oxygen Delivery Mechanical Ventilation Fraction of Inspired Oxygen 05/13/24 22:00 05/13/24 22:00 05/13/24 22:00 Temperature 99.6 F Pulse Rate 83 78 78 Respiratory Rate 18 18 Blood Pressure 138/80 Pulse Oximetry 95 Oxygen Delivery Fraction of Inspired Oxygen 05/13/24 23:00 05/14/24 00:00 05/14/24 00:00 Temperature Pulse Rate 84 79 82 Respiratory Rate 22 H Blood Pressure Pulse Oximetry 95 Oxygen Delivery Mechanical Ventilation Fraction of Inspired Oxygen 28 05/14/24 00:00 05/14/24 00:00 05/14/24 00:00 Temperature 99.7 F H Pulse Rate 82 Respiratory Rate 21 H Blood Pressure 147/68 H Pulse Oximetry 94 Oxygen Delivery Mechanical Ventilation Fraction of Inspired Oxygen 28 28 05/14/24 00:39 05/14/24 00:39 05/14/24 02:00 Temperature 99.5 F Pulse Rate 79 79 76 Respiratory Rate 19 19 20 Blood Pressure 134/76 Pulse Oximetry 95 Oxygen Delivery Fraction of Inspired Oxygen 05/14/24 02:00 05/14/24 02:00 05/14/24 02:16 Temperature Pulse Rate 76 76 77 Respiratory Rate 20 Blood Pressure Pulse Oximetry 95 Oxygen Delivery Mechanical Ventilation Fraction of Inspired Oxygen 28 05/14/24 02:16 05/14/24 04:00 05/14/24 04:00 Temperature 99.4 F Pulse Rate 77 76 76 Respiratory Rate 22 H 17 17 Blood Pressure 136/82 Pulse Oximetry 94 Oxygen Delivery Fraction of Inspired Oxygen 05/14/24 04:00 05/14/24 04:00 05/14/24 04:00 Temperature Pulse Rate 72 Respiratory Rate Blood Pressure Pulse Oximetry Oxygen Delivery Mechanical Ventilation Fraction of Inspired Oxygen 28 28 05/14/24 04:15 05/14/24 06:00 05/14/24 06:00 Temperature Pulse Rate 74 70 70 Respiratory Rate 18 Blood Pressure 142/85 H Pulse Oximetry 95 93 Oxygen Delivery Mechanical Ventilation Fraction of Inspired Oxygen 28 05/14/24 06:00 05/14/24 06:59 05/14/24 06:59 Temperature Pulse Rate 70 65 65 Respiratory Rate 18 17 17 Blood Pressure Pulse Oximetry Oxygen Delivery Fraction of Inspired Oxygen 05/14/24 08:14 05/14/24 08:14 05/14/24 08:27 Temperature Pulse Rate 76 76 71 Respiratory Rate 21 H 21 H Blood Pressure Pulse Oximetry Oxygen Delivery Fraction of Inspired Oxygen 05/14/24 08:29 05/14/24 08:38 Temperature Pulse Rate 74 75 Respiratory Rate 22 H Blood Pressure Pulse Oximetry 97 Oxygen Delivery Mechanical Ventilation Fraction of Inspired Oxygen 28 Intake/Output Intake/Output: Intake & Output 05/11/24 05/12/24 05/13/24 05/14/24 23:59 23:59 23:59 23:59 Intake Total 2122.1 2054.1 2116.1 817.2 Output Total 2300 3320 2550 1700 Balance -177.9 -1265.9 -433.9 -882.8 Meds/Results Medications: Active Medications Generic Name Dose Route Start Last Admin Trade Name Freq PRN Reason Stop Dose Admin Acetaminophen 650 mg 05/03/24 22:58 Acetaminophen 325 Mg Tablet PO Q6H PRN Mild Pain (1-3) or Fever Amlodipine Besylate 10 mg 05/06/24 09:50 05/14/24 08:14 Amlodipine Besylate 10 Mg Tablet PO 10 mg DAILY JR Administration Apixaban 5 mg 05/05/24 09:00 05/14/24 08:14 Apixaban 5 Mg Tablet PO 5 mg Q12HR JR Administration Aspirin 81 mg 05/04/24 09:00 05/14/24 08:14 Aspirin 81 Mg Enteric Tablet PO 81 mg DAILY JR Administration Benzocaine 1 lozenge 05/03/24 22:58 Benzocaine/Menthol (*Bkc) 18 Ea Lozenge PO PRN PRN Sore Throat Benzonatate 100 mg 05/03/24 22:58 Benzonatate 100 Mg Capsule PO TID PRN Cough Bumetanide 2 mg 05/14/24 09:00 05/14/24 08:15 Bumetanide Inj 1 Mg/4 Ml Vial IV PUSH 2 mg QAM JR Administration Citalopram Hydrobromide 40 mg 05/13/24 21:00 05/13/24 20:07 Citalopram Hydrobromide 20 Mg Tablet PO 40 mg HS RJ Administration Dextrose 12.5 gm 05/03/24 23:00 Dextrose 50% 25 Gm/50 Ml Syringe IV PUSH PRN PRN Hypoglycemia Protocol Glucagon 1 mg 05/03/24 23:00 Glucagon For Inj 1 Mg Vial IM PRN PRN Hypoglycemia Protocol Glucose 15 gm 05/03/24 23:00 Glucose Oral Gel 15 Gm Of Glucse In 37.5 Gm Tube PO PRN PRN Hypoglycemia Protocol Hydralazine HCl 10 mg 05/06/24 15:04 05/09/24 20:22 Hydralazine Hcl 20 Mg/Ml Vial IV PUSH 10 mg Q4H PRN Administration Blood Pressure - High Dextrose 1,000 mls @ 100 mls/hr 05/03/24 23:00 Dextrose 5% 1,000 Ml IVPB PRN PRN Hypoglycemia Protocol Dexmedetomidine HCl 400 mcg in 100 mls @ 14.08 mls/hr 05/07/24 12:25 05/14/24 08:14 Precedex 400 Mcg/100 Ml IV CONT 0.4 mcg/kg/hr .Q7H7M JR 14.08 mls/hr Titration Protocol 0.4 MCG/KG/HR Insulin Aspart 4 - 8 units 05/07/24 18:00 05/14/24 05:00 Insulin Aspart (*Bkc) 100 Units/Ml SUB-Q Not Given Q6H JR Protocol Insulin Glargine 60 units 05/13/24 09:00 05/14/24 08:18 Insulin Glargine (*Bkc) 100 Units/Ml SUB-Q 60 units DAILY JR Administration Ipratropium [place] 0.5 mg 05/04/24 14:00 05/14/24 08:26 Ipratropium Br 0.02% Inh Soln 0.5 Mg/2.5 Ml Vial INHALATION 0.5 mg Q6HRT JR Administration Levalbuterol HCl 1.25 mg 05/04/24 14:00 05/14/24 08:26 Levalbuterol Neb 1.25 Mg/3 Ml INHALATION 1.25 mg Q6HRT JR Administration Lisinopril 5 mg 05/11/24 09:00 05/14/24 08:14 Lisinopril 5 Mg Tablet PO 5 mg DAILY JR Administration Metoprolol Tartrate 25 mg 05/05/24 09:00 05/14/24 08:14 Metoprolol Tartrate 25 Mg Tablet PO 25 mg Q12HR JR Administration Midazolam HCl 2 mg 05/04/24 05:14 05/11/24 14:03 Midazolam Hcl (*Crx) 2 Mg/2 Ml Vial IV PUSH 2 mg Q5M PRN Administration ventilator asynchrony Midazolam HCl 2 mg 05/09/24 02:49 05/13/24 00:04 Midazolam Hcl (*Crx) 2 Mg/2 Ml Vial IV PUSH 2 mg Q2H PRN Administration Sedation Multi-Ingred Cream/Lotion/Oil/Oint 1 applic 05/04/24 09:00 05/14/24 08:15 Mineral Oil/White Petrolatum Ointment EACH EYE 1 applic Q12HR JR Administration Ondansetron HCl 4 mg 05/04/24 03:23 05/14/24 03:54 Ondansetron Inj 4 Mg/2 Ml Vial IV PUSH 4 mg Q6H PRN Administration Nausea And Vomiting Pantoprazole Sodium 40 mg 05/04/24 09:00 05/14/24 08:15 Pantoprazole Sodium Iv 40 Mg Vial IV PUSH 40 mg DAILY JR Administration Polyethylene Glycol 17 gm 05/09/24 09:44 Polyethylene Glycol 3350 17 Gm Powd.Pack PO QAM PRN Constipation Senna/Docusate Sodium 1 tab 05/05/24 21:00 05/13/24 20:07 Senna/Docusate Sodium Tablet PO 1 tab HS JR Administration Sodium Chloride 10 ml 05/04/24 22:00 05/14/24 05:49 Central Line Flush IV PUSH 10 ml Q8HR JR Administration Sodium Chloride 10 ml 05/04/24 14:16 Central Line Flush IV PUSH PRN PRN with TPN bag changes Sodium Chloride 20 ml 05/04/24 14:16 05/08/24 05:23 Central Line Flush IV PUSH 20 ml PRN PRN Administration after blood draws Radiology Results: ITS Impressions Head CT 05/03/24 19:02 Impression: No acute intracranial hemorrhage or suspicious mass effect. Left frontal scalp hematoma without underlying fracture. Cervical Spine CT 05/03/24 19:08 Impression: Straightening of the normal curvature of the cervical spine, likely muscular in origin. Degenerative disease, without acute fracture. Chest/Abdomen/Pelvis CT 05/03/24 19:11 IMPRESSION: No cross-sectional imaging evidence of acute traumatic injury. Innumerable nonacute findings, as detailed above. Renal Ultrasound 05/05/24 08:23 IMPRESSION: 1. Normal kidneys. No hydronephrosis. Abdomen X-Ray 05/08/24 08:26 IMPRESSION: 1. No free intraperitoneal gas or dilated gas-filled loops of bowel to suggest obstruction. 2. Bilateral airspace opacities consistent with atelectasis or pneumonia. Chest X-Ray 05/14/24 06:12 IMPRESSION: Small bilateral pleural effusions. Supportive lines and tubes in good position. Labs Labs: Laboratory Results - last 24 hr 02/15/25 02/15/25 02/16/25 11:23 17:55 00:34 WBC RBC Hgb Hct MCV MCH MCHC RDW Plt Count MPV Immature Gran % (Auto) Neut % (Auto) Lymph % (Auto) Stevens % (Auto) Eos % (Auto) Baso % (Auto) Lymph # (Auto) Stevens # (Auto) Eos # (Auto) Baso # (Auto) Abs Immat Gran (auto) Absolute Neuts (auto) Absolute Nucleated RBC Nucleated RBC % Sodium Potassium Chloride Carbon Dioxide Anion Gap BUN Creatinine Estim Creat Clear Calc Estimated GFR Glucose POC Capillary Glucose 172 H 162 H 148 H Calcium Phosphorus Magnesium Total Bilirubin AST ALT Alkaline Phosphatase Total Protein Albumin 05/14/24 05/14/24 03:43 06:51 WBC 9.9 RBC 3.87 L Hgb 11.5 L Hct 35.9 L MCV 92.8 MCH 29.7 MCHC 32.0 RDW 13.7 Plt Count 180 MPV 11.1 H Immature Gran % (Auto) 0.5 Neut % (Auto) 78.0 H Lymph % (Auto) 9.0 L Stevens % (Auto) 8.8 H Eos % (Auto) 3.2 Baso % (Auto) 0.5 Lymph # (Auto) 0.89 L Stevens # (Auto) 0.9 H Eos # (Auto) 0.3 Baso # (Auto) 0.1 Abs Immat Gran (auto) 0.05 H Absolute Neuts (auto) 7.7 H Absolute Nucleated RBC 0.000 Nucleated RBC % 0.0 Sodium 140 Potassium 3.7 Chloride 100 Carbon Dioxide 37 H Anion Gap 3 L BUN 51 H Creatinine 0.89 Estim Creat Clear Calc 70 Estimated GFR > 60 Glucose 148 H POC Capillary Glucose 147 H Calcium 9.2 Phosphorus 3.3 Magnesium 2.0 Total Bilirubin 0.8 AST 18 ALT 26 Alkaline Phosphatase 61 Total Protein 6.0 L Albumin 3.0 L Quality VTE Prophylaxis VTE prophylaxis: pharmacologic ordered
[2024-05-14 10:25] LABS: Base Excess ABG 5.3 mEq/l (+/-2.0); Fractional Inspired Oxygen 28 %; HCO3 ABG 30.3 mEq/l (22.0-26.0); Oxygen Content ABG 16.4 %vol (16.0-22.0); Oxygen Saturation ABG 96.5 % (95.0-100.0); Oxyhemoglobin 95.1 % THb (90.0-100.0); PCO2 ABG 46.3 mmHg (35.0-45.0); Total Hemoglobin 12.2 g/dL (12.0-18.0); pH ABG 7.434 (7.350-7.450)
[2024-05-14 10:27] LABS: Modified Allen's Test Pass; Site Drawn LEFT RADIAL
[2024-05-14 10:28] LABS: Device VENTILATOR
[2024-05-14 10:29] LABS: Arterial Blood Gas PEEP 8 cmH2O; Arterial Blood Gas Pressure Support 10 cmH2O; Arterial Blood Gas Vent Mode SPONTANEOUS
--- NOTE | 2024-05-14 10:30 | PCRCNOTE ---
Extubated patient per Dr. Mckeon's order. Placed patient on 2L NC after extubation. Current SpO2 reading is 94%. RN present for encounter.
[2024-05-14 12:04] LABS: Glucose Point of Care 149 mg/dl (65-105)
[2024-05-14 17:19] LABS: Glucose Point of Care 75 mg/dl (65-105)
[2024-05-14] MEDS: CITALOPRAM HYDROBROMIDE 20 MG TABLET 40 MG PO (20:35)
[2024-05-14] MEDS: DEXTROSE 50% 25 GM/50 ML SYRINGE IV PUSH (23:56)
[2024-05-14 23:57] LABS: Glucose Point of Care 58 mg/dl (65-105)
[2024-05-15] VITALS (24 sets, daily range): BP systolic 130–153; BP diastolic 71–94; PULSE 71–112; RESP 21–26; TEMP 36.8–37.7; O2SAT 91–93
[2024-05-15 00:49] LABS: Glucose Point of Care 84 mg/dl (65-105)
[2024-05-15 02:12] LABS: Glucose Point of Care 79 mg/dl (65-105)
[2024-05-15] MEDS: IPRATROPIUM BR 0.02% INH SOLN 0.5 MG/2.5 ML VIAL INHALATION ×4 (02:57→21:02)
[2024-05-15] MEDS: LEVALBUTEROL NEB 1.25 MG/3 ML INHALATION ×4 (02:57→21:01)
[2024-05-15] MEDS: CENTRAL LINE FLUSH 20 ML IV PUSH (05:49)
[2024-05-15] MEDS: CENTRAL LINE FLUSH 10 ML IV PUSH ×3 (05:49→20:06)
[2024-05-15 05:56] LABS: Basophils Absolute Auto 0.1 K/mm3 (0.0-0.1); Basophils Percent Auto 0.5 % (0.2-1.2); Eosinophils Absolute Auto 0.3 K/mm3 (0-0.3); Eosinophils Percent Auto 2.2 % (0-4.4); Hematocrit 36.7 % (37.0-47.0); Hemoglobin 11.4 g/dL (12.0-15.0); Immature Granulocyte Absolute 0.05 K/mm3 (0.00-0.031); Immature Granulocyte Percent A 0.4 % (0-0.5); Lymphocytes Absolute Auto 1.16 K/mm3 (0.9-3.2); Lymphocytes Percent Auto 10.3 % (18.3-44.2); Mean Corpuscular HGB Conc 31.1 g/dl (32-36); Mean Corpuscular Hemoglobin 28.6 pg (26-34); Mean Corpuscular Volume 92.2 fl (80-100); Mean Platelet Volume 10.7 fl (7.4-10.4); Monocytes Absolute Auto 0.9 K/mm3 (0.1-0.6); Monocytes Percent Auto 7.9 % (2.6-8.5); Neutrophils Absolute Auto 8.9 K/mm3 (1.3-6.7); Neutrophils Percent Auto 78.7 % (45.5-73.1); Platelet Count Result 189 k/mm3 (150-375); Red Blood Count 3.98 M/mm3 (4.2-5.4); Red Cell Distribution Width 13.6 % (11.5-14.5); White Blood Count 11.3 K/mm3 (4.5-10.0)
[2024-05-15] MEDS: DEXTROSE 50% 25 GM/50 ML SYRINGE IV PUSH (05:56)
[2024-05-15 06:07] LABS: Alanine Aminotransferase 28 U/L (6-35); Albumin Level 3.1 g/dL (3.5-5.1); Alkaline Phosphatase 61 U/L (38-126); Aspartate Amino Transferase 21 U/L (14-36); Bilirubin,Total 0.9 mg/dL (0.2-1.3); Blood Urea Nitrogen 53 mg/dL (7-17); Calcium 8.9 mg/dL (8.4-10.2); Carbon Dioxide > 40 mmol/L (22-30); Chloride 96 mmol/L (98-107); Estimated CRCL calculation 82 ml/min; Estimated Glomerular Filt Rate > 60; Glucose 69 mg/dL (65-110); Phosphorus 3.9 mg/dL (2.5-4.5); Potassium 3.5 mmol/L (3.4-5.0); Sodium 141 mmol/L (137-145)
[2024-05-15] MEDS: DEXTROSE 10% 1,000 ML 30 ML IV CONT (06:12)
[2024-05-15 06:23] LABS: Glucose Point of Care 61 mg/dl (65-105)
[2024-05-15 06:24] LABS: Glucose Point of Care 113 mg/dl (65-105)
[2024-05-15 08:29] LABS: Glucose Point of Care 83 mg/dl (65-105)
[2024-05-15 09:31] LABS: Glucose Point of Care 73 mg/dl (65-105)
[2024-05-15] MEDS: KCL 40 MEQ/WATER 100 ML 100 ML 25 ML IVPB (09:49)
[2024-05-15] MEDS: lisinopriL 5 MG TABLET PO (10:35)
[2024-05-15] MEDS: PANTOPRAZOLE SODIUM IV 40 MG VIAL IV PUSH (10:35)
[2024-05-15] MEDS: APIXABAN 5 MG TABLET PO ×2 (10:35→20:06)
[2024-05-15] MEDS: amLODIPine BESYLATE 10 MG TABLET PO (10:36)
[2024-05-15] MEDS: METOPROLOL TARTRATE 25 MG TABLET PO ×2 (10:36→20:05)
[2024-05-15] MEDS: ASPIRIN 81 MG ENTERIC TABLET PO (10:36)
[2024-05-15] MEDS: ALTEPLASE 2 MG VIAL (CATHFLO) IV PUSH (10:43)
[2024-05-15 11:30] LABS: Glucose Point of Care 99 mg/dl (65-105)
--- NOTE | 2024-05-15 11:38 | WPDINTPN ---
Progress Note: A&P Assessment and Plan (1) Acute hypercapnic respiratory failure: Code(s): J96.02 - Acute respiratory failure with hypercapnia Status: Acute Assessment and Plan: Acute hypercapnic respiratory failure despite being on BiPAP, patient had altered mental status, hallucinations with worsening ABGs, patient is a smoker, will have packet per day for many years per daughter, no formal diagnosis of COPD but given her hypercapnic respiratory failure, patient may have COPD and may benefit from pulmonary consult as outpatient -intubated on in the early hours of 05/04/2024 -05/14: extubated -continue Xopenex and Atrovent nebulizer since patient had AFib RVR on admission -status post 5 day course of azithromycin, -05/05: Vancomycin discontinue, MRSA screen negative -status post Solu-Medrol -status post cefepime times 10 days (2) Influenza: Code(s): J11.1 - Influenza due to unidentified influenza virus with other respiratory manifestations Status: Acute Assessment and Plan: Influenza A positive, completed the 5 day course of Tamiflu (3) PNA (pneumonia): Qualifiers: Pneumonia type: due to influenza A virus Qualified Code(s): J10.00 - Influenza due to other identified influenza virus with unspecified type of pneumonia Code(s): J18.9 - Pneumonia, unspecified organism Status: Acute Assessment and Plan: Pneumonia likely related to influenza/community-acquired -status post complete course of antibiotics -currently on mechanical ventilation (4) UTI (urinary tract infection): Qualifiers: Urinary tract infection type: acute cystitis Hematuria presence: without hematuria Qualified Code(s): N30.00 - Acute cystitis without hematuria Code(s): N39.0 - Urinary tract infection, site not specified Status: Acute Assessment and Plan: Urinalysis reflective UTI -completed antibiotic -05/03: urine cultures growing E coli, pansensitive (5) Atrial fibrillation with RVR: Code(s): I48.91 - Unspecified atrial fibrillation Status: Acute Assessment and Plan: AFib RVR on admission, initially was started on heparin infusion and diltiazem infusion, which were later discontinued -heart rate better controlled, patient was dropping her heart rates in the 60s with diltiazem infusion was stopped -continue to monitor -remains in AFib, rate controlled -continue home Eliquis and metoprolol (6) Type 2 diabetes mellitus with hyperglycemia: Qualifiers: 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: with intermediate 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 use Qualified Code(s): E11.65 - Type 2 diabetes mellitus with hyperglycemia; Z79.4 - intermediate manager (current) use of insulin Code(s): E11.65 - Type 2 diabetes mellitus with hyperglycemia Status: Chronic Assessment and Plan: Accu-Cheks and sliding scale insulin -patient hypoglycemic, D10 infusion -now that she has passed a swallow test will start her on diet, sugars sugars may improving and will be able to tell of the D10 infusion (7) Fall: Code(s): W19.XXXA - Unspecified fall, initial encounter Status: Acute Assessment and Plan: Patient status post fall at home with contusion to the left eye CT head did not show any acute intracranial hemorrhage or suspicious mass effect, left frontal scalp hematoma without underlying fracture CT cervical spine: Straightening of the normal curvature of the cervical spine, likely muscular in origin. Degenerative disease, without acute fracture. CT chest abdomen pelvis: No acute evidence of traumatic injury PT and OT has been ordered (8) Essential hypertension: Code(s): I10 - Essential (primary) hypertension Status: Chronic Assessment and Plan: Patient intubated and sedated, blood pressures remained stable, -continue amlodipine and metoprolol. 03/10: Restarted home lisinopril Plan DVT prophylaxis: Apixaban Stress ulcer prophylaxis: Protonix Nutrition: Speech has cleared the patient for level 6 diet, soft and bite size Code Status: Full code Critical Care Time Spent: 31 minutes Patient may move out of the ICU to intermediate Unit Discussed with family and updated them with her condition and plan of care. Due to a high probability of clinically significant, life threatening deterioration, the patient required my highest level of preparedness to intervene emergently and I personally spent this critical care time directly and personally managing the patient. This critical care time included obtaining a history; examining the patient; pulse oximetry; ordering and review of studies; arranging urgent treatment with development of a management plan; evaluation of patient's response to treatment; frequent reassessment; and discussions with other providers. It was exclusive of separately billable procedures and treating other patients and teaching time. Please see Assessment and Plan section and the rest of the note for further information on patient assessment and treatment This dictation may have been done utilizing a voice recognition system. Attempts have been made to correct errors. However, there may be uncorrected grammatical, spelling, and recognitions errors present. Subjective Date/time seen: 05/15/24 11:38 Interval history: Reason for consult: Acute hypercapnic respiratory failure, fall, contusion to left eye, fatigue, shortness of breath, generalized weakness, influenza A positive 05/14: Extubated 05/15/2024: Patient seen and examined the ICU, remains extubated on 2 L nasal cannula, awake, alert, able to answer questions and follow simple commands. Hemodynamically stable, very good urine output in response to diuresis, afebrile. Denies any shortness of breath, chest pain, abdominal pain, nausea, vomiting. Blood pressures have been slightly elevated, she has not gotten a morning pills. Awaiting speech evaluation for bedside swallow Review of Systems Review of Systems: All systems reviewed & are unremarkable except as noted in HPI and below Exam Narrative: General: Pleasant female awake, alert in no acute distress HEENT:? Both pupils equal and reactive, left periorbital hematoma, ecchymosis and swelling much improved Neck:? Supple Respiratory:? Coarse breath sounds bilaterally,. No wheezing, adequate air entry Cardiac:? Irregularly irregular, rate controlled Abdomen:? Soft, nontender, obese, hypoactive bowel sounds Extremities:? Bilateral lower extremity edema improving, palpable pedal pulses Neuro:? Patient is awake, alert, answers to questions appropriately and follows simple commands in all extremities Skin:? [place] skin, dry, erythematous, not warm. Psych:? Normal mentation and affect Objective Data Vital Signs Vital Signs: Vital Signs - 24 hr 05/14/24 12:00 05/14/24 12:00 05/14/24 12:00 Temperature 98.6 F Pulse Rate 80 78 Respiratory Rate 25 H Blood Pressure 118/77 Pulse Oximetry 93 92 Oxygen Delivery Nasal Cannula Oxygen Flow Rate 2 Fraction of Inspired Oxygen 05/14/24 12:30 05/14/24 13:43 05/14/24 14:00 Temperature Pulse Rate 76 78 74 Respiratory Rate 24 H 25 H Blood Pressure Pulse Oximetry Oxygen Delivery Oxygen Flow Rate Fraction of Inspired Oxygen 05/14/24 14:00 05/14/24 14:18 05/14/24 14:35 Temperature 98.3 F Pulse Rate 79 78 78 Respiratory Rate 27 H 22 H 21 H Blood Pressure 129/84 Pulse Oximetry 95 Oxygen Delivery Oxygen Flow Rate Fraction of Inspired Oxygen 05/14/24 16:00 05/14/24 16:00 05/14/24 16:02 Temperature 98.4 F Pulse Rate 85 92 Respiratory Rate 22 H Blood Pressure 136/92 H Pulse Oximetry 92 92 Oxygen Delivery Nasal Cannula Oxygen Flow Rate 2 Fraction of Inspired Oxygen 05/14/24 16:43 05/14/24 18:00 05/14/24 18:00 Temperature 98.5 F Pulse Rate 82 87 87 Respiratory Rate 20 23 H Blood Pressure 137/85 Pulse Oximetry 92 Oxygen Delivery Oxygen Flow Rate Fraction of Inspired Oxygen 05/14/24 20:00 05/14/24 20:00 05/14/24 20:00 Temperature 98.8 F Pulse Rate 102 H 102 H Respiratory Rate 23 H Blood Pressure 150/89 H Pulse Oximetry 92 92 Oxygen Delivery Nasal Cannula Oxygen Flow Rate 2 Fraction of Inspired Oxygen 05/14/24 20:34 05/14/24 20:45 05/14/24 20:52 Temperature Pulse Rate 101 H 100 Respiratory Rate 22 H Blood Pressure Pulse Oximetry 95 Oxygen Delivery Nasal Cannula Oxygen Flow Rate 2 Fraction of Inspired Oxygen 28 05/14/24 20:56 05/14/24 22:00 05/14/24 22:00 Temperature 98.9 F Pulse Rate 91 92 92 Respiratory Rate 23 H 24 H Blood Pressure 116/69 Pulse Oximetry 93 Oxygen Delivery Oxygen Flow Rate Fraction of Inspired Oxygen 05/15/24 00:00 05/15/24 00:00 05/15/24 00:00 Temperature 98.2 F Pulse Rate 90 90 Respiratory Rate 25 H Blood Pressure 134/74 Pulse Oximetry 93 93 Oxygen Delivery Nasal Cannula Oxygen Flow Rate 2 Fraction of Inspired Oxygen 05/15/24 02:00 05/15/24 02:00 05/15/24 02:57 Temperature 98.3 F Pulse Rate 88 88 84 Respiratory Rate 24 H 23 H Blood Pressure 143/92 H Pulse Oximetry 93 Oxygen Delivery Oxygen Flow Rate Fraction of Inspired Oxygen 05/15/24 03:05 05/15/24 04:00 05/15/24 04:00 Temperature Pulse Rate 86 93 Respiratory Rate 22 H Blood Pressure Pulse Oximetry 93 Oxygen Delivery Nasal Cannula Oxygen Flow Rate 2 Fraction of Inspired Oxygen 05/15/24 06:00 05/15/24 08:00 05/15/24 08:00 Temperature 98.8 F Pulse Rate 86 88 Respiratory Rate 24 H Blood Pressure 151/86 H Pulse Oximetry 92 93 Oxygen Delivery Nasal Cannula Oxygen Flow Rate 2 Fraction of Inspired Oxygen 05/15/24 08:24 05/15/24 08:24 05/15/24 08:38 Temperature Pulse Rate 105 H 102 H Respiratory Rate 22 H 24 H Blood Pressure Pulse Oximetry 93 Oxygen Delivery Nasal Cannula Oxygen Flow Rate 2 Fraction of Inspired Oxygen 28 05/15/24 10:00 05/15/24 10:00 05/15/24 10:36 Temperature 99.0 F Pulse Rate 93 102 H 85 Respiratory Rate 25 H Blood Pressure 153/81 H Pulse Oximetry 91 Oxygen Delivery Oxygen Flow Rate Fraction of Inspired Oxygen Intake/Output Intake/Output: Intake & Output 05/12/24 05/13/24 05/14/24 05/15/24 23:59 23:59 23:59 23:59 Intake Total 2054.1 2116.1 1251.0 Output Total 3320 2550 4850 2250 Balance -1265.9 -433.9 -3599.0 -2250 Meds/Results Medications: Active Medications Generic Name Dose Route Start Last Admin Trade Name Freq PRN Reason Stop Dose Admin Acetaminophen 650 mg 05/03/24 22:58 Acetaminophen 325 Mg Tablet PO Q6H PRN Mild Pain (1-3) or Fever Alteplase, Recombinant 2 mg 05/15/24 10:14 05/15/24 10:43 Alteplase 2 Mg Vial (Cathflo) IV PUSH 2 mg ONCE PRN Administration Line Occlusion Amlodipine Besylate 10 mg 05/06/24 09:50 05/15/24 10:36 Amlodipine Besylate 10 Mg Tablet PO 10 mg DAILY JR Administration Apixaban 5 mg 05/05/24 09:00 05/15/24 10:35 Apixaban 5 Mg Tablet PO 5 mg Q12HR JR Administration Aspirin 81 mg 05/04/24 09:00 05/15/24 10:36 Aspirin 81 Mg Enteric Tablet PO 81 mg DAILY JR Administration Benzocaine 1 lozenge 05/03/24 22:58 Benzocaine/Menthol (*Bkc) 18 Ea Lozenge PO PRN PRN Sore Throat Benzonatate 100 mg 05/03/24 22:58 Benzonatate 100 Mg Capsule PO TID PRN Cough Citalopram Hydrobromide 40 mg 05/13/24 21:00 05/14/24 20:35 Citalopram Hydrobromide 20 Mg Tablet PO 40 mg HS JR Administration Dextrose 12.5 gm 05/03/24 23:00 05/15/24 05:56 Dextrose 50% 25 Gm/50 Ml Syringe IV PUSH 12.5 gm PRN PRN Administration Hypoglycemia Protocol Glucagon 1 mg 05/03/24 23:00 Glucagon For Inj 1 Mg Vial IM PRN PRN Hypoglycemia Protocol Glucose 15 gm 05/03/24 23:00 Glucose Oral Gel 15 Gm Of Glucse In 37.5 Gm Tube PO PRN PRN Hypoglycemia Protocol Hydralazine HCl 10 mg 05/06/24 15:04 05/09/24 20:22 Hydralazine Hcl 20 Mg/Ml Vial IV PUSH 10 mg Q4H PRN Administration Blood Pressure - High Dextrose 1,000 mls @ 100 mls/hr 05/03/24 23:00 Dextrose 5% 1,000 Ml IVPB PRN PRN Hypoglycemia Protocol Dextrose 1,000 mls @ 30 mls/hr 05/15/24 06:05 05/15/24 06:12 Dextrose 10% IV CONT 30 mls/hr .Q24H JR Administration Potassium Chloride 100 mls @ 25 mls/hr 05/15/24 08:14 05/15/24 09:49 Kcl 40 Meq/Water 100 Ml IVPB 05/15/24 12:13 25 mls/hr ONCE ONE Administration Insulin Aspart 4 - 8 units 05/07/24 18:00 05/15/24 05:57 Insulin Aspart (*Bkc) 100 Units/Ml SUB-Q Not Given Q6H JR Protocol Insulin Glargine 60 units 05/13/24 09:00 05/14/24 08:18 Insulin Glargine (*Bkc) 100 Units/Ml SUB-Q 60 units DAILY JR Administration Ipratropium [place] 0.5 mg 05/04/24 14:00 05/15/24 08:24 Ipratropium Br 0.02% Inh Soln 0.5 Mg/2.5 Ml Vial INHALATION 0.5 mg Q6HRT JR Administration Levalbuterol HCl 1.25 mg 05/04/24 14:00 05/15/24 08:24 Levalbuterol Neb 1.25 Mg/3 Ml INHALATION 1.25 mg Q6HRT JR Administration Lisinopril 5 mg 05/11/24 09:00 05/15/24 10:35 Lisinopril 5 Mg Tablet PO 5 mg DAILY JR Administration Metoprolol Tartrate 25 mg 05/05/24 09:00 05/15/24 10:36 Metoprolol Tartrate 25 Mg Tablet PO 25 mg Q12HR JR Administration Multi-Ingred Cream/Lotion/Oil/Oint 1 applic 05/04/24 09:00 05/15/24 10:35 Mineral Oil/White Petrolatum Ointment EACH EYE Not Given Q12HR JR Ondansetron HCl 4 mg 05/04/24 03:23 05/14/24 03:54 Ondansetron Inj 4 Mg/2 Ml Vial IV PUSH 4 mg Q6H PRN Administration Nausea And Vomiting Pantoprazole Sodium 40 mg 05/04/24 09:00 05/15/24 10:35 Pantoprazole Sodium Iv 40 Mg Vial IV PUSH 40 mg DAILY JR Administration Polyethylene Glycol 17 gm 05/09/24 09:44 Polyethylene Glycol 3350 17 Gm Powd.Pack PO QAM PRN Constipation Senna/Docusate Sodium 1 tab 05/05/24 21:00 05/14/24 20:38 Senna/Docusate Sodium Tablet PO Not Given HS JR Sodium Chloride 10 ml 05/04/24 22:00 05/15/24 05:49 Central Line Flush IV PUSH 10 ml Q8HR JR Administration Sodium Chloride 10 ml 05/04/24 14:16 Central Line Flush IV PUSH PRN PRN with TPN bag changes Sodium Chloride 20 ml 05/04/24 14:16 05/15/24 05:49 Central Line Flush IV PUSH 20 ml PRN PRN Administration after blood draws Radiology Results: ITS Impressions Head CT 05/03/24 19:02 Impression: No acute intracranial hemorrhage or suspicious mass effect. Left frontal scalp hematoma without underlying fracture. Cervical Spine CT 05/03/24 19:08 Impression: Straightening of the normal curvature of the cervical spine, likely muscular in origin. Degenerative disease, without acute fracture. Chest/Abdomen/Pelvis CT 05/03/24 19:11 IMPRESSION: No cross-sectional imaging evidence of acute traumatic injury. Innumerable nonacute findings, as detailed above. Renal Ultrasound 05/05/24 08:23 IMPRESSION: 1. Normal kidneys. No hydronephrosis. Abdomen X-Ray 05/08/24 08:26 IMPRESSION: 1. No free intraperitoneal gas or dilated gas-filled loops of bowel to suggest obstruction. 2. Bilateral airspace opacities consistent with atelectasis or pneumonia. Chest X-Ray 05/14/24 06:12 IMPRESSION: Small bilateral pleural effusions. Supportive lines and tubes in good position. Labs Labs: Laboratory Results - last 24 hr 05/14/24 05/14/24 05/14/24 11:59 17:15 23:54 WBC RBC Hgb Hct MCV MCH MCHC RDW Plt Count MPV Immature Gran % (Auto) Neut % (Auto) Lymph % (Auto) [place] % (Auto) Eos % (Auto) Baso % (Auto) Lymph # (Auto) [place] # (Auto) Eos # (Auto) Baso # (Auto) Abs Immat Gran (auto) Absolute Neuts (auto) Absolute Nucleated RBC Nucleated RBC % Sodium Potassium Chloride Carbon Dioxide Anion Gap BUN Creatinine Estim Creat Clear Calc Estimated GFR Glucose POC Capillary Glucose 149 H 75 58 L* Calcium Phosphorus Magnesium Total Bilirubin AST ALT Alkaline Phosphatase Total Protein Albumin 05/15/24 05/15/24 05/15/24 00:23 02:08 05:43 WBC 11.3 H RBC 3.98 L Hgb 11.4 L Hct 36.7 L MCV 92.2 MCH 28.6 MCHC 31.1 L RDW 13.6 Plt Count 189 MPV 10.7 H Immature Gran % (Auto) 0.4 Neut % (Auto) 78.7 H Lymph % (Auto) 10.3 L [place] % (Auto) 7.9 Eos % (Auto) 2.2 Baso % (Auto) 0.5 Lymph # (Auto) 1.16 [place] # (Auto) 0.9 H Eos # (Auto) 0.3 Baso # (Auto) 0.1 Abs Immat Gran (auto) 0.05 H Absolute Neuts (auto) 8.9 H Absolute Nucleated RBC 0.000 Nucleated RBC % 0.0 Sodium 141 Potassium 3.5 Chloride 96 L Carbon Dioxide > 40 H Anion Gap BUN 53 H Creatinine 0.76 Estim Creat Clear Calc 82 Estimated GFR > 60 Glucose 69 POC Capillary Glucose 84 79 Calcium 8.9 Phosphorus 3.9 Magnesium 2.0 Total Bilirubin 0.9 AST 21 ALT 28 Alkaline Phosphatase 61 Total Protein 7.0 Albumin 3.1 L 05/15/24 05/15/24 05/15/24 05:54 06:20 08:20 WBC RBC Hgb Hct MCV MCH MCHC RDW Plt Count MPV Immature Gran % (Auto) Neut % (Auto) Lymph % (Auto) [place] % (Auto) Eos % (Auto) Baso % (Auto) Lymph # (Auto) [place] # (Auto) Eos # (Auto) Baso # (Auto) Abs Immat Gran (auto) Absolute Neuts (auto) Absolute Nucleated RBC Nucleated RBC % Sodium Potassium Chloride Carbon Dioxide Anion Gap BUN Creatinine Estim Creat Clear Calc Estimated GFR Glucose POC Capillary Glucose 61 L 113 H 83 Calcium Phosphorus Magnesium Total Bilirubin AST ALT Alkaline Phosphatase Total Protein Albumin 05/15/24 05/15/24 09:28 10:34 WBC RBC Hgb Hct MCV MCH MCHC RDW Plt Count MPV Immature Gran % (Auto) Neut % (Auto) Lymph % (Auto) [place] % (Auto) Eos % (Auto) Baso % (Auto) Lymph # (Auto) [place] # (Auto) Eos # (Auto) Baso # (Auto) Abs Immat Gran (auto) Absolute Neuts (auto) Absolute Nucleated RBC Nucleated RBC % Sodium Potassium Chloride Carbon Dioxide Anion Gap BUN Creatinine Estim Creat Clear Calc Estimated GFR Glucose POC Capillary Glucose 73 99 Calcium Phosphorus Magnesium Total Bilirubin AST ALT Alkaline Phosphatase Total Protein Albumin Quality VTE Prophylaxis VTE prophylaxis: pharmacologic ordered
[2024-05-15 11:40] LABS: Glucose Point of Care 92 mg/dl (65-105)
--- NOTE | 2024-05-15 11:45 | PCFNICU ---
ICU Rounding Note: Pt current nutrition is Soft and Bite Sized, Level 6/Heart Healthy Nutrition recommendation: Glucerna shakes BID Last recorded weight is 132.5 kg, down from 138.5 kg on admit. Bowel Motility: +BM reported 05/14 Labs Reviewed:BUN 53, Alb 3.1 Meds Noted:Lantus, Senokot, NovoLog. Skin: WNL Additional Notes: Patient had speech eval today, extuabated on 05/14. Diet orders advanced to Soft and Bite Sized, Level 6 diet. Diet supplements recommend of Glucerna shakes BID for additional 210 kcal and 10 gm protein. Following daily in ICU rounds. Will monitor weight, labs, skin, diet orders, meds every 5 days.
--- NOTE | 2024-05-15 12:15 | PCSTNOTE ---
Please refer to the Bedside Swallow Evaluation in the EMR. Please note, silent aspiration cannot be ruled out at bedside. Pt was seen for a bedside swallow evaluation; pt was positioned upright in the bed for testing & was asking for hot coffee. Poor dentition was noted but pt states she can chew solids without teeth. Pt was intubated on 05/04/24 x 10 days and was extubated yesterday. Vocal quality was raspy before the exam. Pt was presented with ice chips, 5ml water, pudding, a bite-sized piece of cracker in controlled amounts via a spoon, and water in uncontrolled amounts via cup and straw drinking. For all consistencies the oral and pharyngeal stages appeared to be WFL. No oral leakage or pocketing was noted and no overt s/s of aspiration were exhibited. Vocal quality after all trials was as before any oral trials, i.e. raspy but not wet/gurgly. Impressions/Recommendations: Functional swallowing but silent aspiration cannot be ruled out as bedside; Trial level 6 diet and regular liquids; supervision with all oral intake is recommended initially, notify ST if any further difficulty is exhibited. An MBS would then be recommended. Thank you for this referral.
[2024-05-15 14:09] LABS: Glucose Point of Care 116 mg/dl (65-105)
[2024-05-15 16:10] LABS: Glucose Point of Care 123 mg/dl (65-105)
[2024-05-15 18:04] LABS: Glucose Point of Care 136 mg/dl (65-105)
[2024-05-15] MEDS: CITALOPRAM HYDROBROMIDE 20 MG TABLET 40 MG PO (20:06)
[2024-05-15] MEDS: SENNA/DOCUSATE SODIUM TABLET 1 TAB PO (20:06)
[2024-05-15 21:00] LABS: Glucose Point of Care 266 mg/dl (65-105)
[2024-05-15 22:28] LABS: Glucose Point of Care 173 mg/dl (65-105)
[2024-05-16] VITALS (25 sets, daily range): BP systolic 110–170; BP diastolic 75–102; PULSE 83–117; RESP 20–30; TEMP 36.7–37.6; O2SAT 92–97
[2024-05-16 00:15] LABS: Glucose Point of Care 159 mg/dl (65-105)
[2024-05-16] MEDS: IPRATROPIUM BR 0.02% INH SOLN 0.5 MG/2.5 ML VIAL INHALATION ×4 (02:16→21:10)
[2024-05-16] MEDS: LEVALBUTEROL NEB 1.25 MG/3 ML INHALATION ×4 (02:16→21:10)
[2024-05-16 02:32] LABS: Glucose Point of Care 159 mg/dl (65-105)
[2024-05-16 04:24] LABS: Glucose Point of Care 158 mg/dl (65-105)
[2024-05-16] MEDS: CENTRAL LINE FLUSH 10 ML IV PUSH ×3 (05:05→20:53)
[2024-05-16 05:53] LABS: Basophils Absolute Auto 0.1 K/mm3 (0.0-0.1); Basophils Percent Auto 0.7 % (0.2-1.2); Eosinophils Absolute Auto 0.5 K/mm3 (0-0.3); Eosinophils Percent Auto 4.3 % (0-4.4); Hematocrit 37.2 % (37.0-47.0); Hemoglobin 11.5 g/dL (12.0-15.0); Immature Granulocyte Absolute 0.04 K/mm3 (0.00-0.031); Immature Granulocyte Percent A 0.4 % (0-0.5); Lymphocytes Absolute Auto 1.04 K/mm3 (0.9-3.2); Lymphocytes Percent Auto 9.6 % (18.3-44.2); Mean Corpuscular HGB Conc 30.9 g/dl (32-36); Mean Corpuscular Volume 93.7 fl (80-100); Mean Platelet Volume 10.9 fl (7.4-10.4); Monocytes Absolute Auto 0.8 K/mm3 (0.1-0.6); Monocytes Percent Auto 7.7 % (2.6-8.5); Neutrophils Absolute Auto 8.3 K/mm3 (1.3-6.7); Neutrophils Percent Auto 77.3 % (45.5-73.1); Platelet Count Result 217 k/mm3 (150-375); Red Blood Count 3.97 M/mm3 (4.2-5.4); Red Cell Distribution Width 13.6 % (11.5-14.5); White Blood Count 10.8 K/mm3 (4.5-10.0)
[2024-05-16 06:12] LABS: Alanine Aminotransferase 24 U/L (6-35); Albumin Level 3.2 g/dL (3.5-5.1); Alkaline Phosphatase 69 U/L (38-126); Anion Gap 6 mmol/L (4-12); Aspartate Amino Transferase 18 U/L (14-36); Blood Urea Nitrogen 39 mg/dL (7-17); Calcium 8.9 mg/dL (8.4-10.2); Carbon Dioxide 36 mmol/L (22-30); Chloride 97 mmol/L (98-107); Estimated CRCL calculation 70 ml/min; Estimated Glomerular Filt Rate > 60; Glucose 170 mg/dL (65-110); Magnesium 2.1 mg/dL (1.6-2.3); Potassium 3.8 mmol/L (3.4-5.0); Sodium 139 mmol/L (137-145)
[2024-05-16 07:36] LABS: Glucose Point of Care 172 mg/dl (65-105)
[2024-05-16] MEDS: amLODIPine BESYLATE 10 MG TABLET PO (08:48)
[2024-05-16] MEDS: ASPIRIN 81 MG ENTERIC TABLET PO (08:48)
[2024-05-16] MEDS: APIXABAN 5 MG TABLET PO ×2 (08:48→20:52)
[2024-05-16] MEDS: lisinopriL 5 MG TABLET PO (08:48)
[2024-05-16] MEDS: METOPROLOL TARTRATE 25 MG TABLET PO (08:48)
[2024-05-16] MEDS: PANTOPRAZOLE SODIUM IV 40 MG VIAL IV PUSH (08:48)
[2024-05-16] MEDS: DEXTROSE 10% 1,000 ML 50 ML IV CONT (08:56)
[2024-05-16 10:17] LABS: Glucose Point of Care 274 mg/dl (65-105)
--- NOTE | 2024-05-16 10:21 | PC.NURSE ---
Received order to decrease D10 to 20ml/hr. Continue current diet and q2h sugar checks. Orders read back and verified.
--- NOTE | 2024-05-16 11:51 | PM.IMPN ---
Progress Note: A&P Assessment and Plan (1) Acute hypercapnic respiratory failure: Code(s): J96.02 - Acute respiratory failure with hypercapnia Status: Acute Assessment and Plan: Acute hypercapnic respiratory failure despite being on BiPAP, patient had altered mental status, hallucinations with worsening ABGs, patient is a smoker, will have packet per day for many years per daughter, no formal diagnosis of COPD but given her hypercapnic respiratory failure, patient likely has COPD and may benefit from pulmonary evaluation as outpatient -intubated on in the early hours of 05/04/2024 -05/14: extubated Continue bronchodilator Steroids have been weaned off -status post course of azithromycin cefepime -05/05: Vancomycin discontinued as MRSA screen negative Incentive spirometer (2) Influenza: Code(s): J11.1 - Influenza due to unidentified influenza virus with other respiratory manifestations Status: Acute Assessment and Plan: Influenza A positive, completed the 5 day course of Tamiflu Isolation (3) PNA (pneumonia): Qualifiers: Pneumonia type: due to influenza A virus Qualified Code(s): J10.00 - Influenza due to other identified influenza virus with unspecified type of pneumonia Code(s): J18.9 - Pneumonia, unspecified organism Status: Acute Assessment and Plan: Pneumonia likely related to influenza/community-acquired -status post complete course of antibiotics (4) UTI (urinary tract infection): Qualifiers: Hematuria presence: without hematuria Urinary tract infection type: acute cystitis Qualified Code(s): N30.00 - Acute cystitis without hematuria Code(s): N39.0 - Urinary tract infection, site not specified Status: Acute Assessment and Plan: Urinalysis reflective UTI -completed antibiotic -05/03: urine cultures growing E coli, pansensitive (5) Atrial fibrillation with RVR: Code(s): I48.91 - Unspecified atrial fibrillation Status: Acute Assessment and Plan: AFib RVR on admission, initially was started on heparin infusion and diltiazem infusion, which were later discontinued -heart rate better controlled, patient was dropping her heart rates in the 60s with diltiazem infusion was stopped -continue to monitor -remains in AFib, rate controlled -continue home Eliquis and metoprolol (6) Type 2 diabetes mellitus with hyperglycemia: Qualifiers: Diabetes mellitus alf insulin use: with termite helper use Qualified Code(s): E11.65 - Type 2 diabetes mellitus with hyperglycemia; Z79.4 - correction (current) use of insulin Code(s): E11.65 - Type 2 diabetes mellitus with hyperglycemia Status: Chronic Assessment and Plan: Accu-Cheks and sliding scale insulin -patient hypoglycemic, D10 infusion which is being weaned off Diet has been resume Lantus is on hold (7) Fall: Code(s): W19.XXXA - Unspecified fall, initial encounter Status: Acute Assessment and Plan: Patient status post fall at home with contusion to the left eye CT head did not show any acute intracranial hemorrhage or suspicious mass effect, left frontal scalp hematoma without underlying fracture CT cervical spine: Straightening of the normal curvature of the cervical spine, likely muscular in origin. Degenerative disease, without acute fracture. CT chest abdomen pelvis: No acute evidence of traumatic injury PT and OT has been ordered (8) Essential hypertension: Code(s): I10 - Essential (primary) hypertension Status: Chronic Assessment and Plan: Patient intubated and sedated, blood pressures remained stable, -continue amlodipine, listened and metoprolol. Plan DVT prophylaxis: Apixaban Stress ulcer prophylaxis: Protonix Nutrition: Speech has cleared the patient for level 6 diet, soft and bite size Code Status: Full code Subjective Date/time seen: 05/16/24 Overnight events reviewed. Low-grade fever On room air Tolerating p.o. diet Denies any complaints. Has poor appetite. Patient denies fever, chest pain, shortness of breath, cough, nausea vomiting, abdominal pain,, diarrhea, headache or constipation. All other systems were reviewed and were negative Interval history: Reason for consult: Acute hypercapnic respiratory failure, fall, contusion to left eye, fatigue, shortness of breath, generalized weakness, influenza A positive 05/14: Extubated Review of Systems Review of Systems: All systems reviewed & are unremarkable except as noted in HPI and below Exam Narrative: General: Pleasant female awake, alert in no acute distress HEENT:? Both pupils equal and reactive, left periorbital hematoma, ecchymosis and swelling much improved Neck:? Supple Respiratory:? Coarse breath sounds bilaterally,. No wheezing, adequate air entry Cardiac:? Irregularly irregular, rate controlled Abdomen:? Soft, nontender, obese, hypoactive bowel sounds Extremities:? Bilateral lower extremity edema improving, palpable pedal pulses Neuro:? Patient is awake, alert, answers to questions appropriately and follows simple commands in all extremities Skin:? [place] skin, dry, erythematous, not warm. Psych:? Normal mentation and affect Objective Data Vital Signs Vital Signs: Vital Signs - 24 hr 05/15/24 12:00 05/15/24 12:00 05/15/24 12:00 Temperature 37.5 C Pulse Rate 90 93 Respiratory Rate 26 H Blood Pressure 143/78 H Pulse Oximetry 92 92 Oxygen Delivery Nasal Cannula Oxygen Flow Rate 2 Fraction of Inspired Oxygen 05/15/24 14:00 05/15/24 14:00 05/15/24 15:02 Temperature 37.7 C H Pulse Rate 87 86 Respiratory Rate 26 H Blood Pressure 144/94 H Pulse Oximetry 91 92 Oxygen Delivery Nasal Cannula Oxygen Flow Rate 2 Fraction of Inspired Oxygen 28 05/15/24 15:02 05/15/24 15:20 05/15/24 15:46 Temperature Pulse Rate 92 97 Respiratory Rate 22 H 24 H Blood Pressure Pulse Oximetry 91 Oxygen Delivery Nasal Cannula Oxygen Flow Rate 2 Fraction of Inspired Oxygen 05/15/24 16:00 05/15/24 16:00 05/15/24 18:00 Temperature 37.7 C H Pulse Rate 95 71 99 Respiratory Rate 21 H Blood Pressure 130/71 Pulse Oximetry 91 Oxygen Delivery Oxygen Flow Rate Fraction of Inspired Oxygen 05/15/24 18:00 05/15/24 20:00 05/15/24 20:00 Temperature Pulse Rate 97 112 H Respiratory Rate 24 H Blood Pressure 143/85 H Pulse Oximetry 92 93 Oxygen Delivery Nasal Cannula Oxygen Flow Rate 2 Fraction of Inspired Oxygen 05/15/24 20:00 05/15/24 20:05 05/15/24 21:02 Temperature 37.7 C H Pulse Rate 95 91 101 H Respiratory Rate 24 H 24 H Blood Pressure 152/89 H Pulse Oximetry 93 Oxygen Delivery Oxygen Flow Rate Fraction of Inspired Oxygen 05/15/24 21:05 05/15/24 21:14 05/15/24 21:38 Temperature Pulse Rate 99 94 Respiratory Rate 24 H Blood Pressure Pulse Oximetry 93 Oxygen Delivery Nasal Cannula Oxygen Flow Rate 2 Fraction of Inspired Oxygen 05/16/24 00:00 05/16/24 00:00 05/16/24 00:00 Temperature 37.4 C Pulse Rate 86 86 Respiratory Rate 27 H Blood Pressure 149/77 H Pulse Oximetry 94 94 Oxygen Delivery Nasal Cannula Oxygen Flow Rate 2 Fraction of Inspired Oxygen 05/16/24 02:17 05/16/24 02:27 05/16/24 03:56 Temperature Pulse Rate 89 86 Respiratory Rate 20 20 Blood Pressure Pulse Oximetry 93 Oxygen Delivery Nasal Cannula Oxygen Flow Rate 2 Fraction of Inspired Oxygen 05/16/24 03:56 05/16/24 04:00 05/16/24 05:22 Temperature 37.2 C Pulse Rate 89 83 89 Respiratory Rate 22 H Blood Pressure 165/85 H Pulse Oximetry 94 Oxygen Delivery Oxygen Flow Rate Fraction of Inspired Oxygen 05/16/24 08:00 05/16/24 08:00 05/16/24 08:00 Temperature 37.2 C Pulse Rate 111 H 99 Respiratory Rate 30 H Blood Pressure 143/102 H Pulse Oximetry 93 93 Oxygen Delivery Nasal Cannula Oxygen Flow Rate 2 Fraction of Inspired Oxygen 05/16/24 08:23 05/16/24 08:23 05/16/24 08:34 Temperature Pulse Rate 105 H 105 H 106 H Respiratory Rate 29 H 29 H 24 H Blood Pressure Pulse Oximetry 93 Oxygen Delivery Nasal Cannula Oxygen Flow Rate 2 Fraction of Inspired Oxygen 05/16/24 08:48 05/16/24 10:00 05/16/24 11:08 Temperature Pulse Rate 110 H 95 Respiratory Rate Blood Pressure Pulse Oximetry 97 Oxygen Delivery Room Air Oxygen Flow Rate Fraction of Inspired Oxygen Intake/Output Intake/Output: Intake & Output 05/13/24 05/14/24 05/15/24 05/16/24 23:59 23:59 23:59 23:59 Intake Total 2116.1 1251.0 1074 1376.3 Output Total 2550 4850 3150 700 Balance -433.9 -3599.0 -2076 676.3 Meds/Results Medications: Active Medications Generic Name Dose Route Start Last Admin Trade Name Freq PRN Reason Stop Dose Admin Acetaminophen 650 mg 05/03/24 22:58 Acetaminophen 325 Mg Tablet PO Q6H PRN Mild Pain (1-3) or Fever Alteplase, Recombinant 2 mg 05/15/24 10:14 05/15/24 10:43 Alteplase 2 Mg Vial (Cathflo) IV PUSH 2 mg ONCE PRN Administration Line Occlusion Amlodipine Besylate 10 mg 05/06/24 09:50 05/16/24 08:48 Amlodipine Besylate 10 Mg Tablet PO 10 mg DAILY JR Administration Apixaban 5 mg 05/05/24 09:00 05/16/24 08:48 Apixaban 5 Mg Tablet PO 5 mg Q12HR JR Administration Aspirin 81 mg 05/04/24 09:00 05/16/24 08:48 Aspirin 81 Mg Enteric Tablet PO 81 mg DAILY JR Administration Benzocaine 1 lozenge 05/03/24 22:58 Benzocaine/Menthol (*Bkc) 18 Ea Lozenge PO PRN PRN Sore Throat Benzonatate 100 mg 05/03/24 22:58 Benzonatate 100 Mg Capsule PO TID PRN Cough Citalopram Hydrobromide 40 mg 05/13/24 21:00 05/15/24 20:06 Citalopram Hydrobromide 20 Mg Tablet PO 40 mg HS JR Administration Dextrose 12.5 gm 05/03/24 23:00 05/15/24 05:56 Dextrose 50% 25 Gm/50 Ml Syringe IV PUSH 12.5 gm PRN PRN Administration Hypoglycemia Protocol Glucagon 1 mg 05/03/24 23:00 Glucagon For Inj 1 Mg Vial IM PRN PRN Hypoglycemia Protocol Glucose 15 gm 05/03/24 23:00 Glucose Oral Gel 15 Gm Of Glucse In 37.5 Gm Tube PO PRN PRN Hypoglycemia Protocol Hydralazine HCl 10 mg 05/06/24 15:04 05/09/24 20:22 Hydralazine Hcl 20 Mg/Ml Vial IV PUSH 10 mg Q4H PRN Administration Blood Pressure - High Dextrose 1,000 mls @ 100 mls/hr 05/03/24 23:00 Dextrose 5% 1,000 Ml IVPB PRN PRN Hypoglycemia Protocol Dextrose 1,000 mls @ 20 mls/hr 05/15/24 06:05 05/16/24 10:00 Dextrose 10% IV CONT 20 mls/hr .Q24H JR Infusion Insulin Aspart 4 - 8 units 05/07/24 18:00 05/16/24 06:50 Insulin Aspart (*Bkc) 100 Units/Ml SUB-Q Not Given Q6H [facility] Protocol Insulin Glargine 60 units 05/13/24 09:00 05/14/24 08:18 Insulin Glargine (*Bkc) 100 Units/Ml SUB-Q 60 units DAILY JR Administration Ipratropium [place] 0.5 mg 05/04/24 14:00 05/16/24 08:20 Ipratropium Br 0.02% Inh Soln 0.5 Mg/2.5 Ml Vial INHALATION 0.5 mg Q6HRT JR Administration Levalbuterol HCl 1.25 mg 05/04/24 14:00 05/16/24 08:20 Levalbuterol Neb 1.25 Mg/3 Ml INHALATION 1.25 mg Q6HRT JR Administration Lisinopril 5 mg 05/11/24 09:00 05/16/24 08:48 Lisinopril 5 Mg Tablet PO 5 mg DAILY JR Administration Metoprolol Tartrate 25 mg 05/05/24 09:00 05/16/24 08:48 Metoprolol Tartrate 25 Mg Tablet PO 25 mg Q12HR JR Administration Multi-Ingred Cream/Lotion/Oil/Oint 1 applic 05/04/24 09:00 05/16/24 08:55 Mineral Oil/White Petrolatum Ointment EACH EYE Not Given Q12HR [facility] Ondansetron HCl 4 mg 05/04/24 03:23 05/14/24 03:54 Ondansetron Inj 4 Mg/2 Ml Vial IV PUSH 4 mg Q6H PRN Administration Nausea And Vomiting Pantoprazole Sodium 40 mg 05/04/24 09:00 05/16/24 08:48 Pantoprazole Sodium Iv 40 Mg Vial IV PUSH 40 mg DAILY JR Administration Polyethylene Glycol 17 gm 05/09/24 09:44 Polyethylene Glycol 3350 17 Gm Powd.Pack PO QAM PRN Constipation Senna/Docusate Sodium 1 tab 05/05/24 21:00 05/15/24 20:06 Senna/Docusate Sodium Tablet PO 1 tab HS JR Administration Sodium Chloride 10 ml 05/04/24 22:00 05/16/24 05:05 Central Line Flush IV PUSH 10 ml Q8HR JR Administration Sodium Chloride 10 ml 05/04/24 14:16 Central Line Flush IV PUSH PRN PRN with TPN bag changes Sodium Chloride 20 ml 05/04/24 14:16 05/15/24 05:49 Central Line Flush IV PUSH 20 ml PRN PRN Administration after blood draws Radiology Results: ITS Impressions Head CT 05/03/24 19:02 Impression: No acute intracranial hemorrhage or suspicious mass effect. Left frontal scalp hematoma without underlying fracture. Cervical Spine CT 05/03/24 19:08 Impression: Straightening of the normal curvature of the cervical spine, likely muscular in origin. Degenerative disease, without acute fracture. Chest/Abdomen/Pelvis CT 05/03/24 19:11 IMPRESSION: No cross-sectional imaging evidence of acute traumatic injury. Innumerable nonacute findings, as detailed above. Renal Ultrasound 05/05/24 08:23 IMPRESSION: 1. Normal kidneys. No hydronephrosis. Abdomen X-Ray 05/08/24 08:26 IMPRESSION: 1. No free intraperitoneal gas or dilated gas-filled loops of bowel to suggest obstruction. 2. Bilateral airspace opacities consistent with atelectasis or pneumonia. Chest X-Ray 05/14/24 06:12 IMPRESSION: Small bilateral pleural effusions. Supportive lines and tubes in good position. Labs Labs: Laboratory Results - last 24 hr 05/15/24 05/15/24 05/15/24 14:06 16:08 18:00 WBC RBC Hgb Hct MCV MCH MCHC RDW Plt Count MPV Immature Gran % (Auto) Neut % (Auto) Lymph % (Auto) [place] % (Auto) Eos % (Auto) Baso % (Auto) Lymph # (Auto) [place] # (Auto) Eos # (Auto) Baso # (Auto) Abs Immat Gran (auto) Absolute Neuts (auto) Absolute Nucleated RBC Nucleated RBC % Sodium Potassium Chloride Carbon Dioxide Anion Gap BUN Creatinine Estim Creat Clear Calc Estimated GFR Glucose POC Capillary Glucose 116 H 123 H 136 H Calcium Phosphorus Magnesium Total Bilirubin AST ALT Alkaline Phosphatase Total Protein Albumin 05/15/24 05/15/24 05/16/24 20:12 22:26 00:11 WBC RBC Hgb Hct MCV MCH MCHC RDW Plt Count MPV Immature Gran % (Auto) Neut % (Auto) Lymph % (Auto) [place] % (Auto) Eos % (Auto) Baso % (Auto) Lymph # (Auto) [place] # (Auto) Eos # (Auto) Baso # (Auto) Abs Immat Gran (auto) Absolute Neuts (auto) Absolute Nucleated RBC Nucleated RBC % Sodium Potassium Chloride Carbon Dioxide Anion Gap BUN Creatinine Estim Creat Clear Calc Estimated GFR Glucose POC Capillary Glucose 266 H 173 H 159 H Calcium Phosphorus Magnesium Total Bilirubin AST ALT Alkaline Phosphatase Total Protein Albumin 05/16/24 05/16/24 05/16/24 02:29 04:22 05:36 WBC 10.8 H RBC 3.97 L Hgb 11.5 L Hct 37.2 MCV 93.7 MCH 29.0 MCHC 30.9 L RDW 13.6 Plt Count 217 MPV 10.9 H Immature Gran % (Auto) 0.4 Neut % (Auto) 77.3 H Lymph % (Auto) 9.6 L [place] % (Auto) 7.7 Eos % (Auto) 4.3 Baso % (Auto) 0.7 Lymph # (Auto) 1.04 [place] # (Auto) 0.8 H Eos # (Auto) 0.5 H Baso # (Auto) 0.1 Abs Immat Gran (auto) 0.04 H Absolute Neuts (auto) 8.3 H Absolute Nucleated RBC 0.000 Nucleated RBC % 0.0 Sodium 139 Potassium 3.8 Chloride 97 L Carbon Dioxide 36 H Anion Gap 6 BUN 39 H D Creatinine 0.87 Estim Creat Clear Calc 70 Estimated GFR > 60 Glucose 170 H POC Capillary Glucose 159 H 158 H Calcium 8.9 Phosphorus 3.0 Magnesium 2.1 Total Bilirubin 1.0 AST 18 ALT 24 Alkaline Phosphatase 69 Total Protein 7.0 Albumin 3.2 L 05/16/24 05/16/24 07:35 10:10 WBC RBC Hgb Hct MCV MCH MCHC RDW Plt Count MPV Immature Gran % (Auto) Neut % (Auto) Lymph % (Auto) [place] % (Auto) Eos % (Auto) Baso % (Auto) Lymph # (Auto) [place] # (Auto) Eos # (Auto) Baso # (Auto) Abs Immat Gran (auto) Absolute Neuts (auto) Absolute Nucleated RBC Nucleated RBC % Sodium Potassium Chloride Carbon Dioxide Anion Gap BUN Creatinine Estim Creat Clear Calc Estimated GFR Glucose POC Capillary Glucose 172 H 274 H Calcium Phosphorus Magnesium Total Bilirubin AST ALT Alkaline Phosphatase Total Protein Albumin Quality VTE Prophylaxis VTE prophylaxis: pharmacologic ordered
[2024-05-16 12:04] LABS: Glucose Point of Care 260 mg/dl (65-105)
[2024-05-16 18:19] LABS: Glucose Point of Care 269 mg/dl (65-105)
[2024-05-16] MEDS: INSULIN ASPART (*BKC) 100 UNITS/ML SUB-Q ×2 (18:24→20:26)
[2024-05-16] MEDS: ONDANSETRON INJ 4 MG/2 ML VIAL IV PUSH (20:20)
[2024-05-16 20:42] LABS: Glucose Point of Care 229 mg/dl (65-105)
[2024-05-16] MEDS: METOPROLOL TARTRATE 50 MG TAB PO (20:52)
[2024-05-16] MEDS: CITALOPRAM HYDROBROMIDE 20 MG TABLET 40 MG PO (20:53)
[2024-05-17] VITALS (30 sets, daily range): BP systolic 113–134; BP diastolic 53–74; PULSE 80–111; RESP 18–27; TEMP 36.6–36.7; O2SAT 88–97
[2024-05-17] MEDS: IPRATROPIUM BR 0.02% INH SOLN 0.5 MG/2.5 ML VIAL INHALATION ×4 (02:12→20:59)
[2024-05-17] MEDS: LEVALBUTEROL NEB 1.25 MG/3 ML INHALATION ×4 (02:12→20:59)
[2024-05-17] MEDS: CENTRAL LINE FLUSH 10 ML IV PUSH ×3 (05:39→21:25)
[2024-05-17 06:19] LABS: Hematocrit 33.7 % (37.0-47.0); Hemoglobin 10.5 g/dL (12.0-15.0); Mean Corpuscular HGB Conc 31.2 g/dl (32-36); Mean Corpuscular Hemoglobin 29.5 pg (26-34); Mean Corpuscular Volume 94.7 fl (80-100); Mean Platelet Volume 10.7 fl (7.4-10.4); Platelet Count Result 194 k/mm3 (150-375); Red Blood Count 3.56 M/mm3 (4.2-5.4); Red Cell Distribution Width 13.6 % (11.5-14.5)
[2024-05-17 06:29] LABS: Alanine Aminotransferase 22 U/L (6-35); Albumin Level 3.2 g/dL (3.5-5.1); Alkaline Phosphatase 65 U/L (38-126); Anion Gap 2 mmol/L (4-12); Aspartate Amino Transferase 21 U/L (14-36); Blood Urea Nitrogen 31 mg/dL (7-17); Calcium 8.8 mg/dL (8.4-10.2); Carbon Dioxide 39 mmol/L (22-30); Chloride 100 mmol/L (98-107); Estimated CRCL calculation 69 ml/min; Estimated Glomerular Filt Rate > 60; Glucose 171 mg/dL (65-110); Magnesium 2.2 mg/dL (1.6-2.3); Sodium 141 mmol/L (137-145)
[2024-05-17] MEDS: METOPROLOL TARTRATE 50 MG TAB PO ×2 (08:03→21:24)
[2024-05-17] MEDS: APIXABAN 5 MG TABLET PO ×2 (08:04→21:25)
[2024-05-17] MEDS: ASPIRIN 81 MG ENTERIC TABLET PO (08:04)
[2024-05-17] MEDS: amLODIPine BESYLATE 10 MG TABLET PO (08:04)
[2024-05-17] MEDS: lisinopriL 5 MG TABLET PO (08:04)
[2024-05-17] MEDS: PANTOPRAZOLE SODIUM IV 40 MG VIAL IV PUSH (08:04)
[2024-05-17 08:15] LABS: Glucose Point of Care 160 mg/dl (65-105)
--- NOTE | 2024-05-17 09:30 | PM.IMPN ---
Progress Note: A&P Assessment and Plan (1) Type 2 diabetes mellitus with hyperglycemia: Qualifiers: Diabetes mellitus supervisor intermediates insulin use: with shelter use Qualified Code(s): E11.65 - Type 2 diabetes mellitus with hyperglycemia; Z79.4 - senior care (current) use of insulin Code(s): E11.65 - Type 2 diabetes mellitus with hyperglycemia Status: Chronic (2) Acute respiratory failure with hypoxia and hypercapnia: Code(s): J96.01 - Acute respiratory failure with hypoxia; J96.02 - Acute respiratory failure with hypercapnia Status: Acute (3) PNA (pneumonia): Qualifiers: Pneumonia type: due to influenza A virus Qualified Code(s): J10.00 - Influenza due to other identified influenza virus with unspecified type of pneumonia Code(s): J18.9 - Pneumonia, unspecified organism Status: Acute (4) UTI (urinary tract infection): Qualifiers: Hematuria presence: without hematuria Urinary tract infection type: acute cystitis Qualified Code(s): N30.00 - Acute cystitis without hematuria Code(s): N39.0 - Urinary tract infection, site not specified Status: Acute (5) Influenza: Code(s): J11.1 - Influenza due to unidentified influenza virus with other respiratory manifestations Status: Acute (6) Sepsis: Qualifiers: Acute respiratory failure type: with hypercapnia Sepsis acute organ dysfunction status: with acute organ dysfunction Sepsis type: sepsis due to unspecified organism Severe sepsis acute organ dysfunction type: acute respiratory failure Severe sepsis shock status: without septic shock Qualified Code(s): A41.9 - Sepsis, unspecified organism; R65.20 - Severe sepsis without septic shock; J96.02 - Acute respiratory failure with hypercapnia Code(s): A41.9 - Sepsis, unspecified organism Status: Acute (7) Essential hypertension: Code(s): I10 - Essential (primary) hypertension Status: Chronic (8) Atrial fibrillation with RVR: Code(s): I48.91 - Unspecified atrial fibrillation Status: Acute Plan (1) Acute hypercapnic respiratory failure: Code(s): J96.02 - Acute respiratory failure with hypercapnia Status: Acute Assessment and Plan: Acute hypercapnic respiratory failure despite being on BiPAP, patient had altered mental status, hallucinations with worsening ABGs, patient is a smoker, possible undiagnosed COPD intubated on in the early hours of 05/04/2024 Patient was extubated 08/11. Patient tolerated S patient Continue bronchodilator Steroids have been weaned off -status post course of azithromycin cefepime -05/05: Vancomycin discontinued as MRSA screen negative Incentive spirometer (2) Influenza: Code(s): J11.1 - Influenza due to unidentified influenza virus with other respiratory manifestations Status: Acute Assessment and Plan: Influenza A positive, completed the 5 day course of Tamiflu Isolation (3) PNA (pneumonia): Qualifiers: Pneumonia type: due to influenza A virus Qualified Code(s): J10.00 - Influenza due to other identified influenza virus with unspecified type of pneumonia Code(s): J18.9 - Pneumonia, unspecified organism Status: Acute Assessment and Plan: Pneumonia likely related to influenza/community-acquired status post complete course of antibiotics (4) UTI (urinary tract infection): Qualifiers: Hematuria presence: without hematuria Urinary tract infection type: acute cystitis Qualified Code(s): N30.00 - Acute cystitis without hematuria Code(s): N39.0 - Urinary tract infection, site not specified Status: Acute Assessment and Plan: Urinalysis reflective UTI 05/03: urine cultures growing E coli, pansensitive Completed antibiotics (5) Atrial fibrillation with RVR: Code(s): I48.91 - Unspecified atrial fibrillation Status: Acute Assessment and Plan: AFib RVR on admission, initially was started on heparin infusion and diltiazem infusion, which were later discontinued -heart rate better controlled, patient was dropping her heart rates in the 60s with diltiazem infusion was stopped -continue to monitor -remains in AFib, rate controlled -continue home Eliquis and metoprolol (6) Type 2 diabetes mellitus with hyperglycemia: Qualifiers: Diabetes mellitus supervisor intermediates insulin use: with shelter use Qualified Code(s): E11.65 - Type 2 diabetes mellitus with hyperglycemia; Z79.4 - senior care (current) use of insulin Code(s): E11.65 - Type 2 diabetes mellitus with hyperglycemia Status: Chronic Assessment and Plan: Accu-Cheks and sliding scale insulin -patient hypoglycemic, D10 infusion which is being weaned off Diet has been resume Lantus is on hold (7) Fall: Code(s): W19.XXXA - Unspecified fall, initial encounter Status: Acute Assessment and Plan: Patient status post fall at home with contusion to the left eye CT head did not show any acute intracranial hemorrhage or suspicious mass effect, left frontal scalp hematoma without underlying fracture CT cervical spine: Straightening of the normal curvature of the cervical spine, likely muscular in origin. Degenerative disease, without acute fracture. CT chest abdomen pelvis: No acute evidence of traumatic injury Essential hypertension: Code(s): I10 - Essential (primary) hypertension Status: Chronic Assessment and Plan: Blood pressure stable Continue amlodipine, listened and metoprolol. Plan DVT prophylaxis: Apixaban Stress ulcer prophylaxis: Protonix Nutrition: Speech has cleared the patient for level 6 diet, soft and bite size Code Status: Full code Patient has a physical deconditioning due to multiple comorbidities and prolonged stay on ventilation Consult customer care representative, PT and OT for evaluation and assisting placement Subjective Date/time seen: 05/17/24 09:30 Interval history: I saw examined patient today. Patient has a general weakness, and shortness breath with mild exertion. Patient denies chest pain, still has a cough with scant phlegm. Patient denies abdomen pain nausea vomiting diarrhea. Patient afebrile blood pressure stable, stay need for L oxygen Exam Narrative: GENERAL: Ill-appearing, in no acute distress. Well-nourished. - EYES: EOMI. Anicteric. - HENT: Moist mucous membranes. - LUNGS: Coarse breath sound bilateral base,, no wheezing, rhonchi, or rales. - CARDIOVASCULAR: Regular rate and rhythm. No murmur. No JVD. - ABDOMEN: Soft, non-tender and non-distended. No palpable masses. - EXTREMITIES: 1 to 2+ edema bilateral lower extremities . Peripheral pulses 2+. Non-tender. - NEUROLOGIC: No focal neurological deficits. CN II-XII grossly intact. General weakness, - PSYCHIATRIC: Awake, Alert and oriented x 3. Appropriate mood and affect. - SKIN: No rashes or lesions. Warm. - LYMPH: No cervical lymphadenopathy. Objective Data Vital Signs Vital Signs: Vital Signs - 24 hr 05/16/24 10:00 05/16/24 11:08 05/16/24 12:00 Temperature 99.7 F H Pulse Rate 95 92 Respiratory Rate 27 H Blood Pressure 170/89 H Pulse Oximetry 97 92 Oxygen Delivery Room Air Oxygen Flow Rate 05/16/24 12:00 05/16/24 12:00 05/16/24 13:24 Temperature Pulse Rate 92 Respiratory Rate Blood Pressure Pulse Oximetry 92 Oxygen Delivery Room Air Nasal Cannula Oxygen Flow Rate 2 05/16/24 14:00 05/16/24 14:06 05/16/24 14:06 Temperature Pulse Rate 96 95 95 Respiratory Rate 20 20 Blood Pressure Pulse Oximetry 92 Oxygen Delivery Nasal Cannula Oxygen Flow Rate 2 05/16/24 14:32 05/16/24 16:00 05/16/24 16:00 Temperature Pulse Rate 96 86 Respiratory Rate 25 H Blood Pressure Pulse Oximetry 94 Oxygen Delivery Room Air Oxygen Flow Rate 05/16/24 18:00 05/16/24 20:00 05/16/24 20:00 Temperature Pulse Rate 100 111 H Respiratory Rate Blood Pressure Pulse Oximetry Oxygen Delivery Room Air Oxygen Flow Rate 05/16/24 20:31 05/16/24 20:52 05/16/24 21:10 Temperature 98.0 F Pulse Rate 110 H 112 H 117 H Respiratory Rate 27 H 22 H Blood Pressure 110/80 Pulse Oximetry 95 94 Oxygen Delivery Nasal Cannula Oxygen Flow Rate 4 05/16/24 21:10 05/16/24 21:29 05/16/24 22:00 Temperature Pulse Rate 117 H 113 H 91 Respiratory Rate 22 H 22 H Blood Pressure Pulse Oximetry Oxygen Delivery Oxygen Flow Rate 05/16/24 23:53 05/17/24 00:00 05/17/24 00:00 Temperature 98.8 F Pulse Rate 87 90 Respiratory Rate 27 H Blood Pressure 131/75 Pulse Oximetry 94 Oxygen Delivery Room Air Oxygen Flow Rate 05/17/24 02:00 05/17/24 02:15 05/17/24 02:34 Temperature Pulse Rate 94 101 H 90 Respiratory Rate 18 20 Blood Pressure Pulse Oximetry Oxygen Delivery Oxygen Flow Rate 05/17/24 04:00 05/17/24 04:00 05/17/24 04:09 Temperature 98.1 F Pulse Rate 99 97 Respiratory Rate 24 H Blood Pressure 118/67 Pulse Oximetry 97 Oxygen Delivery Room Air Oxygen Flow Rate 05/17/24 05:51 05/17/24 07:22 05/17/24 08:03 Temperature 98.1 F Pulse Rate 93 93 98 Respiratory Rate 24 H Blood Pressure 131/67 Pulse Oximetry 94 Oxygen Delivery Oxygen Flow Rate 05/17/24 09:21 05/17/24 09:21 Temperature Pulse Rate 94 Respiratory Rate 20 Blood Pressure Pulse Oximetry 93 Oxygen Delivery Nasal Cannula Oxygen Flow Rate 4 Intake/Output Intake/Output: Intake & Output 05/14/24 05/15/24 05/16/24 05/17/24 23:59 23:59 23:59 23:59 Intake Total 1251.0 1074 1536.3 220 Output Total 4850 3150 1450 300 Balance -3599.0 -2076 86.3 -80 Meds/Results Medications: Active Medications Generic Name Dose Route Start Last Admin Trade Name Freq PRN Reason Stop Dose Admin Acetaminophen 650 mg 05/03/24 22:58 Acetaminophen 325 Mg Tablet PO Q6H PRN Mild Pain (1-3) or Fever Alteplase, Recombinant 2 mg 05/15/24 10:14 05/15/24 10:43 Alteplase 2 Mg Vial (Cathflo) IV PUSH 2 mg ONCE PRN Administration Line Occlusion Amlodipine Besylate 10 mg 05/06/24 09:50 05/17/24 08:04 Amlodipine Besylate 10 Mg Tablet PO 10 mg DAILY JR Administration Apixaban 5 mg 05/05/24 09:00 05/17/24 08:04 Apixaban 5 Mg Tablet PO 5 mg Q12HR JR Administration Aspirin 81 mg 05/04/24 09:00 05/17/24 08:04 Aspirin 81 Mg Enteric Tablet PO 81 mg DAILY JR Administration Benzocaine 1 lozenge 05/03/24 22:58 Benzocaine/Menthol (*Bkc) 18 Ea Lozenge PO PRN PRN Sore Throat Benzonatate 100 mg 05/03/24 22:58 Benzonatate 100 Mg Capsule PO TID PRN Cough Citalopram Hydrobromide 40 mg 05/13/24 21:00 05/16/24 20:53 Citalopram Hydrobromide 20 Mg Tablet PO 40 mg HS JR Administration Dextrose 12.5 gm 05/03/24 23:00 05/15/24 05:56 Dextrose 50% 25 Gm/50 Ml Syringe IV PUSH 12.5 gm PRN PRN Administration Hypoglycemia Protocol Glucagon 1 mg 05/03/24 23:00 Glucagon For Inj 1 Mg Vial IM PRN PRN Hypoglycemia Protocol Glucose 15 gm 05/03/24 23:00 Glucose Oral Gel 15 Gm Of Glucse In 37.5 Gm Tube PO PRN PRN Hypoglycemia Protocol Hydralazine HCl 10 mg 05/06/24 15:04 05/09/24 20:22 Hydralazine Hcl 20 Mg/Ml Vial IV PUSH 10 mg Q4H PRN Administration Blood Pressure - High Dextrose 1,000 mls @ 100 mls/hr 05/03/24 23:00 Dextrose 5% 1,000 Ml IVPB PRN PRN Hypoglycemia Protocol Insulin Aspart 3 - 6 units 05/16/24 17:00 05/17/24 07:57 Insulin Aspart (*Bkc) 100 Units/Ml SUB-Q Not Given TIDWM JR Protocol Insulin Aspart 1 - 3 units 05/16/24 21:00 05/16/24 20:26 Insulin Aspart (*Bkc) 100 Units/Ml SUB-Q 1 units HS JR Administration Protocol Ipratropium [place] 0.5 mg 05/04/24 14:00 05/17/24 09:20 Ipratropium Br 0.02% Inh Soln 0.5 Mg/2.5 Ml Vial INHALATION 0.5 mg Q6HRT JR Administration Levalbuterol HCl 1.25 mg 05/04/24 14:00 05/17/24 09:20 Levalbuterol Neb 1.25 Mg/3 Ml INHALATION 1.25 mg Q6HRT JR Administration Lisinopril 5 mg 05/11/24 09:00 05/17/24 08:04 Lisinopril 5 Mg Tablet PO 5 mg DAILY JR Administration Metoprolol Tartrate 50 mg 05/16/24 21:00 05/17/24 08:03 Metoprolol Tartrate 50 Mg Tab PO 50 mg Q12HR JR Administration Ondansetron HCl 4 mg 05/04/24 03:23 05/16/24 20:20 Ondansetron Inj 4 Mg/2 Ml Vial IV PUSH 4 mg Q6H PRN Administration Nausea And Vomiting Pantoprazole Sodium 40 mg 05/04/24 09:00 05/17/24 08:04 Pantoprazole Sodium Iv 40 Mg Vial IV PUSH 40 mg DAILY JR Administration Polyethylene Glycol 17 gm 05/09/24 09:44 Polyethylene Glycol 3350 17 Gm Powd.Pack PO QAM PRN Constipation Senna/Docusate Sodium 1 tab 05/05/24 21:00 05/16/24 20:28 Senna/Docusate Sodium Tablet PO Not Given HS JR Sodium Chloride 10 ml 05/04/24 22:00 05/17/24 05:39 Central Line Flush IV PUSH 10 ml Q8HR JR Administration Sodium Chloride 10 ml 05/04/24 14:16 Central Line Flush IV PUSH PRN PRN with TPN bag changes Sodium Chloride 20 ml 05/04/24 14:16 05/15/24 05:49 Central Line Flush IV PUSH 20 ml PRN PRN Administration after blood draws Radiology Results: ITS Impressions Head CT 05/03/24 19:02 Impression: No acute intracranial hemorrhage or suspicious mass effect. Left frontal scalp hematoma without underlying fracture. Cervical Spine CT 05/03/24 19:08 Impression: Straightening of the normal curvature of the cervical spine, likely muscular in origin. Degenerative disease, without acute fracture. Chest/Abdomen/Pelvis CT 05/03/24 19:11 IMPRESSION: No cross-sectional imaging evidence of acute traumatic injury. Innumerable nonacute findings, as detailed above. Renal Ultrasound 05/05/24 08:23 IMPRESSION: 1. Normal kidneys. No hydronephrosis. Abdomen X-Ray 05/08/24 08:26 IMPRESSION: 1. No free intraperitoneal gas or dilated gas-filled loops of bowel to suggest obstruction. 2. Bilateral airspace opacities consistent with atelectasis or pneumonia. Chest X-Ray 05/14/24 06:12 IMPRESSION: Small bilateral pleural effusions. Supportive lines and tubes in good position. Labs Labs: Laboratory Results - last 24 hr 05/16/24 05/16/24 05/16/24 10:10 12:01 18:17 WBC RBC Hgb Hct MCV MCH MCHC RDW Plt Count MPV Sodium Potassium Chloride Carbon Dioxide Anion Gap BUN Creatinine Estim Creat Clear Calc Estimated GFR Glucose POC Capillary Glucose 274 H 260 H 269 H Calcium Magnesium Total Bilirubin AST ALT Alkaline Phosphatase Total Protein Albumin 05/16/24 05/17/24 05/17/24 20:26 06:14 07:39 WBC 11.0 H RBC 3.56 L Hgb 10.5 L Hct 33.7 L MCV 94.7 MCH 29.5 MCHC 31.2 L RDW 13.6 Plt Count 194 MPV 10.7 H Sodium 141 Potassium 4.0 Chloride 100 Carbon Dioxide 39 H Anion Gap 2 L BUN 31 H Creatinine 0.88 Estim Creat Clear Calc 69 Estimated GFR > 60 Glucose 171 H POC Capillary Glucose 229 H 160 H Calcium 8.8 Magnesium 2.2 Total Bilirubin 1.0 AST 21 ALT 22 Alkaline Phosphatase 65 Total Protein 7.0 Albumin 3.2 L
--- NOTE | 2024-05-17 09:31 | PCPTNOTE ---
On 05/17/24, the student, LUDIVINA Hoover, provided care and completed [facility] documentation on this patient. I have reviewed the student's documentation and agree with the findings.
[2024-05-17] MEDS: INSULIN ASPART (*BKC) 100 UNITS/ML SUB-Q (12:18)
[2024-05-17 16:50] LABS: Glucose Point of Care 177 mg/dl (65-105)
[2024-05-17 16:50] LABS: Glucose Point of Care 219 mg/dl (65-105)
[2024-05-17 20:50] LABS: Glucose Point of Care 169 mg/dl (65-105)
[2024-05-17] MEDS: CITALOPRAM HYDROBROMIDE 20 MG TABLET 40 MG PO (21:24)
--- NOTE | 2024-05-17 22:33 | PC.NURSE ---
2232: Report called to DUSTY Craft. Patient transferred to [facility].
--- NOTE | 2024-05-17 23:06 | PC.NURSE ---
RECEIVED PT FROM IMU PER BED, VOICES NO C/O
[2024-05-18] VITALS (21 sets, daily range): BP systolic 135–140; BP diastolic 67–79; PULSE 80–100; RESP 18–21; TEMP 36.7–36.8; O2SAT 91–96
[2024-05-18] MEDS: IPRATROPIUM BR 0.02% INH SOLN 0.5 MG/2.5 ML VIAL INHALATION ×4 (02:29→21:55)
[2024-05-18] MEDS: LEVALBUTEROL NEB 1.25 MG/3 ML INHALATION ×4 (02:29→21:55)
[2024-05-18 05:13] LABS: Hematocrit 32.9 % (37.0-47.0); Hemoglobin 10.3 g/dL (12.0-15.0); Mean Corpuscular HGB Conc 31.3 g/dl (32-36); Mean Corpuscular Hemoglobin 29.7 pg (26-34); Mean Corpuscular Volume 94.8 fl (80-100); Platelet Count Result 171 k/mm3 (150-375); Red Blood Count 3.47 M/mm3 (4.2-5.4); Red Cell Distribution Width 13.5 % (11.5-14.5); White Blood Count 9.9 K/mm3 (4.5-10.0)
[2024-05-18 05:21] LABS: Alanine Aminotransferase 21 U/L (6-35); Albumin Level 3.2 g/dL (3.5-5.1); Alkaline Phosphatase 66 U/L (38-126); Anion Gap 4 mmol/L (4-12); Aspartate Amino Transferase 17 U/L (14-36); Blood Urea Nitrogen 34 mg/dL (7-17); Calcium 8.9 mg/dL (8.4-10.2); Carbon Dioxide 36 mmol/L (22-30); Chloride 99 mmol/L (98-107); Estimated CRCL calculation 60 ml/min; Estimated Glomerular Filt Rate 53; Glucose 208 mg/dL (65-110); Magnesium 2.2 mg/dL (1.6-2.3); Sodium 139 mmol/L (137-145)
[2024-05-18] MEDS: CENTRAL LINE FLUSH 20 ML IV PUSH (06:02)
[2024-05-18] MEDS: CENTRAL LINE FLUSH 10 ML IV PUSH ×3 (06:03→22:11)
[2024-05-18 08:17] LABS: Glucose Point of Care 207 mg/dl (65-105)
--- NOTE | 2024-05-18 08:29 | P.PNIM_ITS ---
Progress Note: A&P Assessment and Plan (1) Type 2 diabetes mellitus with hyperglycemia: Qualifiers: Diabetes mellitus terminal worker insulin use: with intermediate use Qualified Code(s): E11.65 - Type 2 diabetes mellitus with hyperglycemia; Z79.4 - FDC (current) use of insulin Code(s): E11.65 - Type 2 diabetes mellitus with hyperglycemia Status: Chronic (2) Acute respiratory failure with hypoxia and hypercapnia: Code(s): J96.01 - Acute respiratory failure with hypoxia; J96.02 - Acute respiratory failure with hypercapnia Status: Acute (3) PNA (pneumonia): Qualifiers: Pneumonia type: due to influenza A virus Qualified Code(s): J10.00 - Influenza due to other identified influenza virus with unspecified type of pneumonia Code(s): J18.9 - Pneumonia, unspecified organism Status: Acute (4) UTI (urinary tract infection): Qualifiers: Hematuria presence: without hematuria Urinary tract infection type: acute cystitis Qualified Code(s): N30.00 - Acute cystitis without hematuria Code(s): N39.0 - Urinary tract infection, site not specified Status: Acute (5) Influenza: Code(s): J11.1 - Influenza due to unidentified influenza virus with other respiratory manifestations Status: Acute (6) Sepsis: Qualifiers: Acute respiratory failure type: with hypercapnia Sepsis acute organ dysfunction status: with acute organ dysfunction Sepsis type: sepsis due to unspecified organism Severe sepsis acute organ dysfunction type: acute respiratory failure Severe sepsis shock status: without septic shock Qualified Code(s): A41.9 - Sepsis, unspecified organism; R65.20 - Severe sepsis without septic shock; J96.02 - Acute respiratory failure with hypercapnia Code(s): A41.9 - Sepsis, unspecified organism Status: Acute (7) Essential hypertension: Code(s): I10 - Essential (primary) hypertension Status: Chronic (8) Atrial fibrillation with RVR: Code(s): I48.91 - Unspecified atrial fibrillation Status: Acute Plan (1) Acute hypercapnic respiratory failure: Code(s): J96.02 - Acute respiratory failure with hypercapnia Status: Acute Assessment and Plan: Acute hypercapnic respiratory failure despite being on BiPAP, patient had altered mental status, hallucinations with worsening ABGs, patient is a smoker, possible undiagnosed COPD intubated on in the early hours of 05/04/2024 Patient was extubated 08/11. Patient tolerated S patient Continue bronchodilator Steroids have been weaned off -status post course of azithromycin cefepime -05/05: Vancomycin discontinued as MRSA screen negative Incentive spirometer now on 1-2 L oxygen therapy via nasal cannular (2) Influenza: Code(s): J11.1 - Influenza due to unidentified influenza virus with other respiratory manifestations Status: Acute Assessment and Plan: Influenza A positive, completed the 5 day course of Tamiflu Isolation (3) PNA (pneumonia): Qualifiers: Pneumonia type: due to influenza A virus Qualified Code(s): J10.00 - Influenza due to other identified influenza virus with unspecified type of pneumonia Code(s): J18.9 - Pneumonia, unspecified organism Status: Acute Assessment and Plan: Pneumonia likely related to influenza/community-acquired status post complete course of antibiotics (4) UTI (urinary tract infection): Qualifiers: Hematuria presence: without hematuria Urinary tract infection type: acute cystitis Qualified Code(s): N30.00 - Acute cystitis without hematuria Code(s): N39.0 - Urinary tract infection, site not specified Status: Acute Assessment and Plan: Urinalysis reflective UTI 05/03: urine cultures growing E coli, pansensitive Completed antibiotics (5) Atrial fibrillation with RVR: Code(s): I48.91 - Unspecified atrial fibrillation Status: Acute Assessment and Plan: AFib RVR on admission, initially was started on heparin infusion and diltiazem infusion, which were later discontinued -heart rate better controlled, patient was dropping her heart rates in the 60s with diltiazem infusion was stopped -continue to monitor -remains in AFib, rate controlled -continue home Eliquis and metoprolol (6) Type 2 diabetes mellitus with hyperglycemia: Qualifiers: Diabetes mellitus terminal worker insulin use: with intermediate use Qualified Code(s): E11.65 - Type 2 diabetes mellitus with hyperglycemia; Z79.4 - FDC (current) use of insulin Code(s): E11.65 - Type 2 diabetes mellitus with hyperglycemia Status: Chronic Assessment and Plan: Accu-Cheks and sliding scale insulin Patient had hypoglycemic, D10 infusion which is being weaned off Diet has been resume Lantus is on hold (7) Fall: Code(s): W19.XXXA - Unspecified fall, initial encounter Status: Acute Assessment and Plan: Patient status post fall at home with contusion to the left eye CT head did not show any acute intracranial hemorrhage or suspicious mass effect, left frontal scalp hematoma without underlying fracture CT cervical spine: Straightening of the normal curvature of the cervical spine, likely muscular in origin. Degenerative disease, without acute fracture. CT chest abdomen pelvis: No acute evidence of traumatic injury Essential hypertension: Code(s): I10 - Essential (primary) hypertension Status: Chronic Assessment and Plan: Blood pressure stable Continue amlodipine, listened and metoprolol. Plan DVT prophylaxis: Apixaban Stress ulcer prophylaxis: Protonix Nutrition: Speech has cleared the patient for level 6 diet, soft and bite size Code Status: Full code Patient has a physical deconditioning due to multiple comorbidities and prolonged stay on ventilation Consult manager home healthcare, PT and OT for evaluation waiting for SNF placement Subjective Date/time seen: 05/18/24 08:29 Interval history: I saw examined patient today. Patient feels better, appetite improving. Patient still has general weakness Patient denies chest pain, still has a cough with scant phlegm. Patient denies abdomen pain nausea vomiting diarrhea. Patient afebrile blood pressure stable, stay need for L oxygen Exam Narrative: GENERAL: Ill-appearing, in no acute distress. Well-nourished. - EYES: EOMI. Anicteric. - HENT: Moist mucous membranes. - LUNGS: Coarse breath sound bilateral base,, no wheezing, rhonchi, or rales. - CARDIOVASCULAR: Regular rate and rhyth m. No murmur. No JVD. - ABDOMEN: Soft, non-tender and non-dist ended. No palpable masses. - EXTREMITIES: 1 to 2+ edema bilateral lower extremities . Peripheral pulses 2+. Non-tender. - NEUROLOGIC: No focal neurological defi cits. CN II-XII grossly intact. General weakness, - PSYCHIATRIC: Awake, Alert and oriented x 3. Appropriate mood and affect. - SKIN: No rashes or lesions. Warm. - LYMPH: No cervical lymphadenopathy. Objective Data Vital Signs Vital Signs: Vital Signs - 24 hr 05/17/24 09:21 05/17/24 09:21 05/17/24 09:40 Temperature Pulse Rate 94 99 Respiratory Rate 20 20 Blood Pressure Pulse Oximetry 93 Oxygen Delivery Nasal Cannula Oxygen Flow Rate 4 05/17/24 10:00 05/17/24 11:05 05/17/24 11:30 Temperature Pulse Rate 91 Respiratory Rate Blood Pressure Pulse Oximetry 97 Oxygen Delivery Nasal Cannula Nasal Cannula Oxygen Flow Rate 3 2 05/17/24 11:35 05/17/24 12:00 05/17/24 14:00 Temperature Pulse Rate 88 Respiratory Rate Blood Pressure Pulse Oximetry 94 91 Oxygen Delivery Nasal Cannula Oxygen Flow Rate 2 1 05/17/24 14:05 05/17/24 14:05 05/17/24 14:21 Temperature Pulse Rate 80 90 Respiratory Rate 20 20 Blood Pressure Pulse Oximetry 90 Oxygen Delivery Nasal Cannula Oxygen Flow Rate 1 05/17/24 14:55 05/17/24 15:00 05/17/24 15:48 Temperature 97.8 F Pulse Rate 80 Respiratory Rate 27 H Blood Pressure 113/53 L Pulse Oximetry 88 L 94 96 Oxygen Delivery Nasal Cannula Nasal Cannula Oxygen Flow Rate 1 2 05/17/24 16:00 05/17/24 20:00 05/17/24 20:00 Temperature Pulse Rate 90 99 Respiratory Rate Blood Pressure Pulse Oximetry 96 Oxygen Delivery Nasal Cannula Oxygen Flow Rate 2 05/17/24 21:00 05/17/24 21:00 05/17/24 21:13 Temperature Pulse Rate 95 94 Respiratory Rate 22 H 22 H Blood Pressure Pulse Oximetry 95 Oxygen Delivery Nasal Cannula Oxygen Flow Rate 1 05/17/24 21:23 05/17/24 21:24 05/17/24 23:06 Temperature Pulse Rate 111 H 111 H 93 Respiratory Rate Blood Pressure 134/74 Pulse Oximetry Oxygen Delivery Oxygen Flow Rate 05/17/24 23:07 05/18/24 00:00 05/18/24 02:31 Temperature 97.9 F Pulse Rate 102 H 90 92 Respiratory Rate 18 20 Blood Pressure 113/53 L Pulse Oximetry 96 Oxygen Delivery Oxygen Flow Rate 05/18/24 04:00 05/18/24 04:35 Temperature 98.2 F Pulse Rate 94 87 Respiratory Rate 18 Blood Pressure 136/67 Pulse Oximetry 93 Oxygen Delivery Oxygen Flow Rate Intake/Output Intake/Output: Intake & Output 05/15/24 05/16/24 05/17/24 05/18/24 23:59 23:59 23:59 23:59 Intake Total 1074 1536.3 700 Output Total 3150 1450 300 Balance -2076 86.3 400 Meds/Results Medications: Active Medications Generic Name Dose Route Start Last Admin Trade Name Freq PRN Reason Stop Dose Admin Acetaminophen 650 mg 05/03/24 22:58 Acetaminophen 325 Mg Tablet PO Q6H PRN Mild Pain (1-3) or Fever Alteplase, Recombinant 2 mg 05/15/24 10:14 05/15/24 10:43 Alteplase 2 Mg Vial (Cathflo) IV PUSH 2 mg ONCE PRN Administration Line Occlusion Amlodipine Besylate 10 mg 05/06/24 09:50 05/17/24 08:04 Amlodipine Besylate 10 Mg Tablet PO 10 mg DAILY JR Administration Apixaban 5 mg 05/05/24 09:00 05/17/24 21:25 Apixaban 5 Mg Tablet PO 5 mg Q12HR JR Administration Aspirin 81 mg 05/04/24 09:00 05/17/24 08:04 Aspirin 81 Mg Enteric Tablet PO 81 mg DAILY JR Administration Benzocaine 1 lozenge 05/03/24 22:58 Benzocaine/Menthol (*Bkc) 18 Ea Lozenge PO PRN PRN Sore Throat Benzonatate 100 mg 05/03/24 22:58 Benzonatate 100 Mg Capsule PO TID PRN Cough Citalopram Hydrobromide 40 mg 05/13/24 21:00 05/17/24 21:24 Citalopram Hydrobromide 20 Mg Tablet PO 40 mg HS JR Administration Dextrose 12.5 gm 05/03/24 23:00 05/15/24 05:56 Dextrose 50% 25 Gm/50 Ml Syringe IV PUSH 12.5 gm PRN PRN Administration Hypoglycemia Protocol Glucagon 1 mg 05/03/24 23:00 Glucagon For Inj 1 Mg Vial IM PRN PRN Hypoglycemia Protocol Glucose 15 gm 05/03/24 23:00 Glucose Oral Gel 15 Gm Of Glucse In 37.5 Gm Tube PO PRN PRN Hypoglycemia Protocol Hydralazine HCl 10 mg 05/06/24 15:04 05/09/24 20:22 Hydralazine Hcl 20 Mg/Ml Vial IV PUSH 10 mg Q4H PRN Administration Blood Pressure - High Dextrose 1,000 mls @ 100 mls/hr 05/03/24 23:00 Dextrose 5% 1,000 Ml IVPB PRN PRN Hypoglycemia Protocol Insulin Aspart 3 - 6 units 05/16/24 17:00 05/17/24 17:01 Insulin Aspart (*Bkc) 100 Units/Ml SUB-Q Not Given TIDWM [facility] Protocol Insulin Aspart 1 - 3 units 05/16/24 21:00 05/17/24 21:25 Insulin Aspart (*Bkc) 100 Units/Ml SUB-Q Not Given HS [facility] Protocol Ipratropium Loman 0.5 mg 05/04/24 14:00 05/18/24 02:29 Ipratropium Br 0.02% Inh Soln 0.5 Mg/2.5 Ml Vial INHALATION 0.5 mg Q6HRT JR Administration Levalbuterol HCl 1.25 mg 05/04/24 14:00 05/18/24 02:29 Levalbuterol Neb 1.25 Mg/3 Ml INHALATION 1.25 mg Q6HRT JR Administration Lisinopril 5 mg 05/11/24 09:00 05/17/24 08:04 Lisinopril 5 Mg Tablet PO 5 mg DAILY JR Administration Metoprolol Tartrate 50 mg 05/16/24 21:00 05/17/24 21:24 Metoprolol Tartrate 50 Mg Tab PO 50 mg Q12HR JR Administration Ondansetron HCl 4 mg 05/04/24 03:23 05/16/24 20:20 Ondansetron Inj 4 Mg/2 Ml Vial IV PUSH 4 mg Q6H PRN Administration Nausea And Vomiting Pantoprazole Sodium 40 mg 05/04/24 09:00 05/17/24 08:04 Pantoprazole Sodium Iv 40 Mg Vial IV PUSH 40 mg DAILY JR Administration Polyethylene Glycol 17 gm 05/09/24 09:44 Polyethylene Glycol 3350 17 Gm Powd.Pack PO QAM PRN Constipation Senna/Docusate Sodium 1 tab 05/05/24 21:00 05/17/24 21:31 Senna/Docusate Sodium Tablet PO Not Given HS JR Sodium Chloride 10 ml 05/04/24 22:00 05/18/24 06:03 Central Line Flush IV PUSH 10 ml Q8HR JR Administration Sodium Chloride 10 ml 05/04/24 14:16 Central Line Flush IV PUSH PRN PRN with TPN bag changes Sodium Chloride 20 ml 05/04/24 14:16 05/18/24 06:02 Central Line Flush IV PUSH 20 ml PRN PRN Administration after blood draws Radiology Results: ITS Impressions Head CT 05/03/24 19:02 Impression: No acute intracranial hemorrhage or suspicious mass effect. Left frontal scalp hematoma without underlying fracture. Cervical Spine CT 05/03/24 19:08 Impression: Straightening of the normal curvature of the cervical spine, likely muscular in origin. Degenerative disease, without acute fracture. Chest/Abdomen/Pelvis CT 05/03/24 19:11 IMPRESSION: No cross-sectional imaging evidence of acute traumatic injury. Innumerable nonacute findings, as detailed above. Renal Ultrasound 05/05/24 08:23 IMPRESSION: 1. Normal kidneys. No hydronephrosis. Abdomen X-Ray 05/08/24 08:26 IMPRESSION: 1. No free intraperitoneal gas or dilated gas-filled loops of bowel to suggest obstruction. 2. Bilateral airspace opacities consistent with atelectasis or pneumonia. Chest X-Ray 05/14/24 06:12 IMPRESSION: Small bilateral pleural effusions. Supportive lines and tubes in good position. Labs Labs: Laboratory Results - last 24 hr 05/17/24 05/17/24 05/17/24 11:38 16:34 20:38 WBC RBC Hgb Hct MCV MCH MCHC RDW Plt Count MPV Sodium Potassium Chloride Carbon Dioxide Anion Gap BUN Creatinine Estim Creat Clear Calc Estimated GFR Glucose POC Capillary Glucose 219 H 177 H 169 H Calcium Magnesium Total Bilirubin AST ALT Alkaline Phosphatase Total Protein Albumin 05/18/24 05/18/24 04:58 08:12 WBC 9.9 RBC 3.47 L Hgb 10.3 L Hct 32.9 L MCV 94.8 MCH 29.7 MCHC 31.3 L RDW 13.5 Plt Count 171 MPV 11.0 H Sodium 139 Potassium 4.0 Chloride 99 Carbon Dioxide 36 H Anion Gap 4 BUN 34 H Creatinine 1.03 H Estim Creat Clear Calc 60 Estimated GFR 53 L Glucose 208 H POC Capillary Glucose 207 H Calcium 8.9 Magnesium 2.2 Total Bilirubin 1.0 AST 17 ALT 21 Alkaline Phosphatase 66 Total Protein 7.0 Albumin 3.2 L
[2024-05-18] MEDS: amLODIPine BESYLATE 10 MG TABLET PO (08:51)
[2024-05-18] MEDS: lisinopriL 5 MG TABLET PO (08:51)
[2024-05-18] MEDS: METOPROLOL TARTRATE 50 MG TAB PO ×2 (08:51→20:37)
[2024-05-18] MEDS: ASPIRIN 81 MG ENTERIC TABLET PO (08:51)
[2024-05-18] MEDS: APIXABAN 5 MG TABLET PO ×2 (08:51→20:37)
[2024-05-18] MEDS: INSULIN ASPART (*BKC) 100 UNITS/ML SUB-Q ×4 (08:52→20:42)
[2024-05-18] MEDS: PANTOPRAZOLE SODIUM IV 40 MG VIAL IV PUSH (08:55)
--- NOTE | 2024-05-18 11:09 | PCNFU ---
Nutrition Follow-Up Complete: Suboptimal Energy Intake as related to mechanical ventilation as evidenced by NPO. goal: Meet estimated nutritional needs. Patient is progressing towards goal. We will continue current goal. Pt current nutrition is Soft and Bite Sized, Level 6/Heart Healthy/DBCC with Glucerna shakes BID. Last recorded weight is 132 kg, down from 138.5 kg on admit. Bowel Motility: +BM reported 05/16 Labs Reviewed:Glu 208, BUN 34, Cr 1.3, Alb 3.2 Meds Noted:Lantus, Eliquis, NovoLog. Skin: WNL Additional Notes:Patient tolerating soft and bite sized, level 6 diet. Blood sugars elevated today DBCC diet added to diet orders. Glucerna shakes providing an additional 220 kcal and 10 gm protein. Agree with diet orders. Will monitor weight, labs, skin, diet orders, meds every 5 days.
[2024-05-18 12:30] LABS: Glucose Point of Care 231 mg/dl (65-105)
--- NOTE | 2024-05-18 15:54 | PCPTNOTE ---
On 05/18/24, the student, LUDIVINA Hoover, provided care and completed [facility] documentation on this patient. I have reviewed the student's documentation and agree with the findings.
[2024-05-18 17:31] LABS: Glucose Point of Care 202 mg/dl (65-105)
[2024-05-18 20:19] LABS: Glucose Point of Care 258 mg/dl (65-105)
[2024-05-18] MEDS: CITALOPRAM HYDROBROMIDE 20 MG TABLET 40 MG PO (20:37)
[2024-05-18] MEDS: SENNA/DOCUSATE SODIUM TABLET 1 TAB PO (20:38)
[2024-05-19] VITALS (18 sets, daily range): BP systolic 139–156; BP diastolic 73–85; PULSE 78–105; RESP 18–22; TEMP 36.3–37; O2SAT 90–99
[2024-05-19] MEDS: IPRATROPIUM BR 0.02% INH SOLN 0.5 MG/2.5 ML VIAL INHALATION ×4 (02:53→20:18)
[2024-05-19] MEDS: LEVALBUTEROL NEB 1.25 MG/3 ML INHALATION ×4 (02:54→20:18)
[2024-05-19 05:38] LABS: Hematocrit 35.2 % (37.0-47.0); Hemoglobin 10.9 g/dL (12.0-15.0); Mean Corpuscular Hemoglobin 28.9 pg (26-34); Mean Corpuscular Volume 93.4 fl (80-100); Mean Platelet Volume 10.9 fl (7.4-10.4); Platelet Count Result 205 k/mm3 (150-375); Red Blood Count 3.77 M/mm3 (4.2-5.4); Red Cell Distribution Width 13.3 % (11.5-14.5); White Blood Count 12.3 K/mm3 (4.5-10.0)
[2024-05-19] MEDS: CENTRAL LINE FLUSH 10 ML IV PUSH ×3 (05:46→20:38)
[2024-05-19] MEDS: CENTRAL LINE FLUSH 20 ML IV PUSH (05:46)
[2024-05-19 05:52] LABS: Alanine Aminotransferase 24 U/L (6-35); Albumin Level 3.5 g/dL (3.5-5.1); Alkaline Phosphatase 75 U/L (38-126); Anion Gap 6 mmol/L (4-12); Aspartate Amino Transferase 21 U/L (14-36); Bilirubin,Total 1.2 mg/dL (0.2-1.3); Blood Urea Nitrogen 28 mg/dL (7-17); Calcium 9.4 mg/dL (8.4-10.2); Carbon Dioxide 35 mmol/L (22-30); Chloride 99 mmol/L (98-107); Estimated CRCL calculation 69 ml/min; Estimated Glomerular Filt Rate > 60; Glucose 229 mg/dL (65-110); Magnesium 2.1 mg/dL (1.6-2.3); Potassium 3.9 mmol/L (3.4-5.0); Sodium 140 mmol/L (137-145)
--- NOTE | 2024-05-19 07:21 | PM.IMPN ---
Progress Note: A&P Assessment and Plan (1) Type 2 diabetes mellitus with hyperglycemia: Qualifiers: Diabetes mellitus keno terminal operator insulin use: with mcc use Qualified Code(s): E11.65 - Type 2 diabetes mellitus with hyperglycemia; Z79.4 - intermediate (current) use of insulin Code(s): E11.65 - Type 2 diabetes mellitus with hyperglycemia Status: Chronic (2) Acute respiratory failure with hypoxia and hypercapnia: Code(s): J96.01 - Acute respiratory failure with hypoxia; J96.02 - Acute respiratory failure with hypercapnia Status: Acute (3) PNA (pneumonia): Qualifiers: Pneumonia type: due to influenza A virus Qualified Code(s): J10.00 - Influenza due to other identified influenza virus with unspecified type of pneumonia Code(s): J18.9 - Pneumonia, unspecified organism Status: Acute (4) UTI (urinary tract infection): Qualifiers: Hematuria presence: without hematuria Urinary tract infection type: acute cystitis Qualified Code(s): N30.00 - Acute cystitis without hematuria Code(s): N39.0 - Urinary tract infection, site not specified Status: Acute (5) Influenza: Code(s): J11.1 - Influenza due to unidentified influenza virus with other respiratory manifestations Status: Acute (6) Sepsis: Qualifiers: Acute respiratory failure type: with hypercapnia Sepsis acute organ dysfunction status: with acute organ dysfunction Sepsis type: sepsis due to unspecified organism Severe sepsis acute organ dysfunction type: acute respiratory failure Severe sepsis shock status: without septic shock Qualified Code(s): A41.9 - Sepsis, unspecified organism; R65.20 - Severe sepsis without septic shock; J96.02 - Acute respiratory failure with hypercapnia Code(s): A41.9 - Sepsis, unspecified organism Status: Acute (7) Essential hypertension: Code(s): I10 - Essential (primary) hypertension Status: Chronic (8) Atrial fibrillation with RVR: Code(s): I48.91 - Unspecified atrial fibrillation Status: Acute Plan (1) Acute hypercapnic respiratory failure: Code(s): J96.02 - Acute respiratory failure with hypercapnia Status: Acute Assessment and Plan: Acute hypercapnic respiratory failure despite being on BiPAP, patient had altered mental status, hallucinations with worsening ABGs, patient is a smoker, possible undiagnosed COPD intubated on in the early hours of 05/04/2024 Patient was extubated 08/11. Patient tolerated S patient Continue bronchodilator Steroids have been weaned off -status post course of azithromycin cefepime -05/05: Vancomycin discontinued as MRSA screen negative Incentive spirometer now O2 therapy via nasal cannular (2) Influenza: Code(s): J11.1 - Influenza due to unidentified influenza virus with other respiratory manifestations Status: Acute Assessment and Plan: Influenza A positive, completed the 5 day course of Tamiflu Isolation (3) PNA (pneumonia): Qualifiers: Pneumonia type: due to influenza A virus Qualified Code(s): J10.00 - Influenza due to other identified influenza virus with unspecified type of pneumonia Code(s): J18.9 - Pneumonia, unspecified organism Status: Acute Assessment and Plan: Pneumonia likely related to influenza/community-acquired status post complete course of antibiotics (4) UTI (urinary tract infection): Qualifiers: Hematuria presence: without hematuria Urinary tract infection type: acute cystitis Qualified Code(s): N30.00 - Acute cystitis without hematuria Code(s): N39.0 - Urinary tract infection, site not specified Status: Acute Assessment and Plan: Urinalysis reflective UTI 05/03: urine cultures growing E coli, pansensitive Completed antibiotics (5) Atrial fibrillation with RVR: Code(s): I48.91 - Unspecified atrial fibrillation Status: Acute Assessment and Plan: AFib RVR on admission, initially was started on heparin infusion and diltiazem infusion, which were later discontinued -heart rate better controlled, patient was dropping her heart rates in the 60s with diltiazem infusion was stopped -continue to monitor -remains in AFib, rate controlled -continue home Eliquis and metoprolol (6) Type 2 diabetes mellitus with hyperglycemia: Qualifiers: Diabetes mellitus mcc insulin use: with keno terminal operator use Qualified Code(s): E11.65 - Type 2 diabetes mellitus with hyperglycemia; Z79.4 - intermediate (current) use of insulin Code(s): E11.65 - Type 2 diabetes mellitus with hyperglycemia Status: Chronic Assessment and Plan: Accu-Cheks and sliding scale insulin Patient had hypoglycemic, D10 infusion which is being weaned off Diet has been resume Lantus is on hold (7) Fall: Code(s): W19.XXXA - Unspecified fall, initial encounter Status: Acute Assessment and Plan: Patient status post fall at home with contusion to the left eye CT head did not show any acute intracranial hemorrhage or suspicious mass effect, left frontal scalp hematoma without underlying fracture CT cervical spine: Straightening of the normal curvature of the cervical spine, likely muscular in origin. Degenerative disease, without acute fracture. CT chest abdomen pelvis: No acute evidence of traumatic injury Essential hypertension: Code(s): I10 - Essential (primary) hypertension Status: Chronic Assessment and Plan: Blood pressure stable Continue amlodipine, listened and metoprolol. Plan DVT prophylaxis: Apixaban Stress ulcer prophylaxis: Protonix Nutrition: Speech has cleared the patient for level 6 diet, soft and bite size Code Status: Full code Patient has a physical deconditioning due to multiple comorbidities and prolonged stay on ventilation Consult rn palliative care, PT and OT for evaluation waiting for SNF placement Subjective Date/time seen: 05/19/24 07:21 Interval history: I saw examined patient today. Patient condition continue to improve,. Patient still has general weakness but denies focal weakness. Patient has some shortness breath with walking. Patient denies abdomen pain nausea vomiting diarrhea. Patient afebrile blood pressure stable Exam Narrative: GENERAL: Ill-appearing, in no acute distress. Well-nourished. - EYES: EOMI. Anicteric. - HENT: Moist mucous membranes. - LUNGS: Lungs clear no wheezing, rhonchi, or rales. - CARDIOVASCULAR: Regular rate and rhythm. No murmur. No JVD. - ABDOMEN: Soft, non-tender and non-distended. No palpable masses. - EXTREMITIES: 1 to 2+ edema bilateral lower extremities . Peripheral pulses 2+. Non-tender. - NEUROLOGIC: No focal neurological deficits. CN II-XII grossly intact. General weakness, - PSYCHIATRIC: Awake, Alert and oriented x 3. Appropriate mood and affect. - SKIN: No rashes or lesions. Warm. - LYMPH: No cervical lymphadenopathy. Objective Data Vital Signs Vital Signs: Vital Signs - 24 hr 05/18/24 08:00 05/18/24 08:50 05/18/24 08:51 Temperature Pulse Rate 87 90 Respiratory Rate Blood Pressure Pulse Oximetry 96 Oxygen Delivery Nasal Cannula Oxygen Flow Rate 2 05/18/24 09:05 05/18/24 09:11 05/18/24 09:18 Temperature Pulse Rate 83 88 Respiratory Rate 18 18 Blood Pressure Pulse Oximetry 95 Oxygen Delivery Oxygen Flow Rate 05/18/24 12:00 05/18/24 13:16 05/18/24 13:33 Temperature Pulse Rate 84 80 82 Respiratory Rate 18 18 Blood Pressure Pulse Oximetry Oxygen Delivery Oxygen Flow Rate 05/18/24 14:00 05/18/24 16:00 05/18/24 19:57 Temperature 98.2 F 98.1 F Pulse Rate 89 84 87 Respiratory Rate 21 H 20 Blood Pressure 135/74 140/79 Pulse Oximetry 91 94 Oxygen Delivery Oxygen Flow Rate 05/18/24 20:00 05/18/24 20:37 05/18/24 21:55 Temperature Pulse Rate 88 100 88 Respiratory Rate 18 Blood Pressure Pulse Oximetry Oxygen Delivery Oxygen Flow Rate 05/18/24 21:56 05/18/24 22:11 05/19/24 00:00 Temperature Pulse Rate 80 86 Respiratory Rate Blood Pressure Pulse Oximetry 95 Oxygen Delivery Nasal Cannula Oxygen Flow Rate 1 05/19/24 02:54 05/19/24 04:00 Temperature Pulse Rate 82 104 H Respiratory Rate 18 Blood Pressure Pulse Oximetry Oxygen Delivery Oxygen Flow Rate Intake/Output Intake/Output: Intake & Output 05/16/24 05/17/24 05/18/24 05/19/24 23:59 23:59 23:59 23:59 Intake Total 1536.3 700 636 150 Output Total 1450 300 100 Balance 86.3 400 536 150 Meds/Results Medications: Active Medications Generic Name Dose Route Start Last Admin Trade Name Freq PRN Reason Stop Dose Admin Acetaminophen 650 mg 05/03/24 22:58 Acetaminophen 325 Mg Tablet PO Q6H PRN Mild Pain (1-3) or Fever Alteplase, Recombinant 2 mg 05/15/24 10:14 05/15/24 10:43 Alteplase 2 Mg Vial (Cathflo) IV PUSH 2 mg ONCE PRN Administration Line Occlusion Amlodipine Besylate 10 mg 05/06/24 09:50 05/18/24 08:51 Amlodipine Besylate 10 Mg Tablet PO 10 mg DAILY JR Administration Apixaban 5 mg 05/05/24 09:00 05/18/24 20:37 Apixaban 5 Mg Tablet PO 5 mg Q12HR JR Administration Aspirin 81 mg 05/04/24 09:00 05/18/24 08:51 Aspirin 81 Mg Enteric Tablet PO 81 mg DAILY JR Administration Benzocaine 1 lozenge 05/03/24 22:58 Benzocaine/Menthol (*Bkc) 18 Ea Lozenge PO PRN PRN Sore Throat Benzonatate 100 mg 05/03/24 22:58 Benzonatate 100 Mg Capsule PO TID PRN Cough Citalopram Hydrobromide 40 mg 05/13/24 21:00 05/18/24 20:37 Citalopram Hydrobromide 20 Mg Tablet PO 40 mg HS JR Administration Dextrose 12.5 gm 05/03/24 23:00 05/15/24 05:56 Dextrose 50% 25 Gm/50 Ml Syringe IV PUSH 12.5 gm PRN PRN Administration Hypoglycemia Protocol Glucagon 1 mg 05/03/24 23:00 Glucagon For Inj 1 Mg Vial IM PRN PRN Hypoglycemia Protocol Glucose 15 gm 05/03/24 23:00 Glucose Oral Gel 15 Gm Of Glucse In 37.5 Gm Tube PO PRN PRN Hypoglycemia Protocol Hydralazine HCl 10 mg 05/06/24 15:04 05/09/24 20:22 Hydralazine Hcl 20 Mg/Ml Vial IV PUSH 10 mg Q4H PRN Administration Blood Pressure - High Dextrose 1,000 mls @ 100 mls/hr 05/03/24 23:00 Dextrose 5% 1,000 Ml IVPB PRN PRN Hypoglycemia Protocol Insulin Aspart 3 - 6 units 05/16/24 17:00 05/18/24 17:49 Insulin Aspart (*Bkc) 100 Units/Ml SUB-Q 3 units TIDWM JR Administration Protocol Insulin Aspart 1 - 3 units 05/16/24 21:00 05/18/24 20:42 Insulin Aspart (*Bkc) 100 Units/Ml SUB-Q 2 units HS JR Administration Protocol Ipratropium [place] [employer] 0.5 mg 05/04/24 14:00 05/19/24 02:53 Ipratropium Br 0.02% Inh Soln 0.5 Mg/2.5 Ml Vial INHALATION 0.5 mg Q6HRT JR Administration Levalbuterol HCl 1.25 mg 05/04/24 14:00 05/19/24 02:54 Levalbuterol Neb 1.25 Mg/3 Ml INHALATION 1.25 mg Q6HRT JR Administration Lisinopril 5 mg 05/11/24 09:00 05/18/24 08:51 Lisinopril 5 Mg Tablet PO 5 mg DAILY JR Administration Metoprolol Tartrate 50 mg 05/16/24 21:00 05/18/24 20:37 Metoprolol Tartrate 50 Mg Tab PO 50 mg Q12HR JR Administration Ondansetron HCl 4 mg 05/04/24 03:23 05/16/24 20:20 Ondansetron Inj 4 Mg/2 Ml Vial IV PUSH 4 mg Q6H PRN Administration Nausea And Vomiting Pantoprazole Sodium 40 mg 05/04/24 09:00 05/18/24 08:55 Pantoprazole Sodium Iv 40 Mg Vial IV PUSH 40 mg DAILY JR Administration Polyethylene Glycol 17 gm 05/09/24 09:44 Polyethylene Glycol 3350 17 Gm Powd.Pack PO QAM PRN Constipation Senna/Docusate Sodium 1 tab 05/05/24 21:00 05/18/24 20:38 Senna/Docusate Sodium Tablet PO 1 tab HS JR Administration Sodium Chloride 10 ml 05/04/24 22:00 05/19/24 05:46 Central Line Flush IV PUSH 10 ml Q8HR JR Administration Sodium Chloride 10 ml 05/04/24 14:16 Central Line Flush IV PUSH PRN PRN with TPN bag changes Sodium Chloride 20 ml 05/04/24 14:16 05/19/24 05:46 Central Line Flush IV PUSH 20 ml PRN PRN Administration after blood draws Radiology Results: ITS Impressions Head CT 05/03/24 19:02 Impression: No acute intracranial hemorrhage or suspicious mass effect. Left frontal scalp hematoma without underlying fracture. Cervical Spine CT 05/03/24 19:08 Impression: Straightening of the normal curvature of the cervical spine, likely muscular in origin. Degenerative disease, without acute fracture. Chest/Abdomen/Pelvis CT 05/03/24 19:11 IMPRESSION: No cross-sectional imaging evidence of acute traumatic injury. Innumerable nonacute findings, as detailed above. Renal Ultrasound 05/05/24 08:23 IMPRESSION: 1. Normal kidneys. No hydronephrosis. Abdomen X-Ray 05/08/24 08:26 IMPRESSION: 1. No free intraperitoneal gas or dilated gas-filled loops of bowel to suggest obstruction. 2. Bilateral airspace opacities consistent with atelectasis or pneumonia. Chest X-Ray 05/14/24 06:12 IMPRESSION: Small bilateral pleural effusions. Supportive lines and tubes in good position. Labs Labs: Laboratory Results - last 24 hr 05/18/24 05/18/24 05/18/24 08:12 12:04 17:28 WBC RBC Hgb Hct MCV MCH MCHC RDW Plt Count MPV Sodium Potassium Chloride Carbon Dioxide Anion Gap BUN Creatinine Estim Creat Clear Calc Estimated GFR Glucose POC Capillary Glucose 207 H 231 H 202 H Calcium Magnesium Total Bilirubin AST ALT Alkaline Phosphatase Total Protein Albumin 05/18/24 05/19/24 19:44 05:26 WBC 12.3 H RBC 3.77 L Hgb 10.9 L Hct 35.2 L MCV 93.4 MCH 28.9 MCHC 31.0 L RDW 13.3 Plt Count 205 MPV 10.9 H Sodium 140 Potassium 3.9 Chloride 99 Carbon Dioxide 35 H Anion Gap 6 BUN 28 H Creatinine 0.88 Estim Creat Clear Calc 69 Estimated GFR > 60 Glucose 229 H POC Capillary Glucose 258 H Calcium 9.4 Magnesium 2.1 Total Bilirubin 1.2 AST 21 ALT 24 Alkaline Phosphatase 75 Total Protein 8.0 Albumin 3.5
[2024-05-19 07:58] LABS: Glucose Point of Care 202 mg/dl (65-105)
[2024-05-19] MEDS: INSULIN ASPART (*BKC) 100 UNITS/ML SUB-Q ×3 (08:36→20:42)
[2024-05-19] MEDS: lisinopriL 5 MG TABLET PO (08:36)
[2024-05-19] MEDS: amLODIPine BESYLATE 10 MG TABLET PO (08:36)
[2024-05-19] MEDS: PANTOPRAZOLE SODIUM IV 40 MG VIAL IV PUSH (08:36)
[2024-05-19] MEDS: METOPROLOL TARTRATE 50 MG TAB PO ×2 (08:36→20:37)
[2024-05-19] MEDS: ASPIRIN 81 MG ENTERIC TABLET PO (08:36)
[2024-05-19] MEDS: APIXABAN 5 MG TABLET PO ×2 (08:36→20:37)
[2024-05-19 11:56] LABS: Glucose Point of Care 207 mg/dl (65-105)
--- NOTE | 2024-05-19 16:44 | PCPTNOTE ---
On 05/19/24, the student, LUDIVINA Hoover, provided care and completed [facility] documentation on this patient. I have reviewed the student's documentation and agree with the findings.
[2024-05-19 17:08] LABS: Glucose Point of Care 199 mg/dl (65-105)
[2024-05-19] MEDS: SENNA/DOCUSATE SODIUM TABLET 1 TAB PO (20:37)
[2024-05-19] MEDS: CITALOPRAM HYDROBROMIDE 20 MG TABLET 40 MG PO (20:37)
[2024-05-19 20:39] LABS: Glucose Point of Care 248 mg/dl (65-105)
[2024-05-20] VITALS (22 sets, daily range): BP systolic 145–157; BP diastolic 71–94; PULSE 79–112; RESP 18–24; TEMP 36.3–36.5; O2SAT 93–99
[2024-05-20] MEDS: LEVALBUTEROL NEB 1.25 MG/3 ML INHALATION ×4 (02:00→21:09)
[2024-05-20] MEDS: IPRATROPIUM BR 0.02% INH SOLN 0.5 MG/2.5 ML VIAL INHALATION ×4 (02:01→21:09)
[2024-05-20 06:06] LABS: Hematocrit 34.8 % (37.0-47.0); Hemoglobin 10.9 g/dL (12.0-15.0); Mean Corpuscular HGB Conc 31.3 g/dl (32-36); Mean Corpuscular Hemoglobin 29.1 pg (26-34); Mean Platelet Volume 10.6 fl (7.4-10.4); Platelet Count Result 194 k/mm3 (150-375); Red Blood Count 3.74 M/mm3 (4.2-5.4); Red Cell Distribution Width 13.5 % (11.5-14.5); White Blood Count 10.4 K/mm3 (4.5-10.0)
[2024-05-20 06:13] LABS: Alanine Aminotransferase 27 U/L (6-35); Albumin Level 3.7 g/dL (3.5-5.1); Alkaline Phosphatase 74 U/L (38-126); Anion Gap 7 mmol/L (4-12); Aspartate Amino Transferase 23 U/L (14-36); Bilirubin,Total 1.4 mg/dL (0.2-1.3); Blood Urea Nitrogen 27 mg/dL (7-17); Calcium 9.3 mg/dL (8.4-10.2); Carbon Dioxide 33 mmol/L (22-30); Chloride 99 mmol/L (98-107); Estimated CRCL calculation 76 ml/min; Estimated Glomerular Filt Rate > 60; Glucose 225 mg/dL (65-110); Potassium 3.6 mmol/L (3.4-5.0); Sodium 139 mmol/L (137-145)
[2024-05-20 08:14] LABS: Glucose Point of Care 199 mg/dl (65-105)
[2024-05-20] MEDS: APIXABAN 5 MG TABLET PO ×2 (09:52→21:53)
[2024-05-20] MEDS: CENTRAL LINE FLUSH 10 ML IV PUSH ×3 (09:52→21:58)
[2024-05-20] MEDS: amLODIPine BESYLATE 10 MG TABLET PO (09:52)
[2024-05-20] MEDS: lisinopriL 5 MG TABLET PO (09:52)
[2024-05-20] MEDS: ASPIRIN 81 MG ENTERIC TABLET PO (09:52)
[2024-05-20] MEDS: METOPROLOL TARTRATE 50 MG TAB PO ×2 (09:52→21:53)
[2024-05-20] MEDS: PANTOPRAZOLE SODIUM IV 40 MG VIAL IV PUSH (09:53)
[2024-05-20 12:10] LABS: Glucose Point of Care 276 mg/dl (65-105)
[2024-05-20] MEDS: INSULIN ASPART (*BKC) 100 UNITS/ML SUB-Q ×2 (12:14→21:55)
--- NOTE | 2024-05-20 15:50 | P.PNIM_ITS ---
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 Qualified Code(s): E11.65 - Type 2 diabetes mellitus with hyperglycemia; Z79.4 - [facility] (current) use of insulin Code(s): E11.65 - Type 2 diabetes mellitus with hyperglycemia Status: Chronic (2) Acute respiratory failure with hypoxia and hypercapnia: Code(s): J96.01 - Acute respiratory failure with hypoxia; J96.02 - Acute respiratory failure with hypercapnia Status: Acute (3) PNA (pneumonia): Qualifiers: Pneumonia type: due to influenza A virus Qualified Code(s): J10.00 - Influenza due to other identified influenza virus with unspecified type of pneumonia Code(s): J18.9 - Pneumonia, unspecified organism Status: Acute (4) UTI (urinary tract infection): Qualifiers: Urinary tract infection type: acute cystitis Hematuria presence: without hematuria Qualified Code(s): N30.00 - Acute cystitis without hematuria Code(s): N39.0 - Urinary tract infection, site not specified Status: Acute (5) Influenza: Code(s): J11.1 - Influenza due to unidentified influenza virus with other respiratory manifestations Status: Acute (6) Sepsis: Qualifiers: Sepsis type: sepsis due to unspecified organism Sepsis acute organ dysfunction status: with acute organ dysfunction Severe sepsis acute organ dysfunction type: acute respiratory failure Acute respiratory failure type: with hypercapnia Severe sepsis shock status: without septic shock Qualified Code(s): A41.9 - Sepsis, unspecified organism; R65.20 - Severe sepsis without septic shock; J96.02 - Acute respiratory failure with hypercapnia Code(s): A41.9 - Sepsis, unspecified organism Status: Acute (7) Essential hypertension: Code(s): I10 - Essential (primary) hypertension Status: Chronic (8) Atrial fibrillation with RVR: Code(s): I48.91 - Unspecified atrial fibrillation Status: Acute Plan # Acute hypercapnic respiratory failure: Acute hypercapnic respiratory failure despite being on BiPAP, patient had altered mental status, hallucinations with worsening ABGs, patient is a smoker, possible undiagnosed COPD intubated on in the early hours of 05/04/2024 Patient was extubated 05/14. Continue bronchodilator Steroids have been weaned off -status post course of azithromycin cefepime -05/05: Vancomycin discontinued as MRSA screen negative Incentive spirometer now O2 therapy via nasal cannular recheck cxr # Influenza: Influenza A positive, completed the 5 day course of Tamiflu Isolation # PNA (pneumonia): Pneumonia likely related to influenza/community-acquired status post complete course of antibiotics # UTI (urinary tract infection): Urinalysis reflective UTI 05/03: urine cultures growing E coli, pansensitive Completed antibiotics # Atrial fibrillation with RVR: AFib RVR on admission, initially was started on heparin infusion and diltiazem infusion, which were later discontinued -heart rate better controlled, patient was dropping her heart rates in the 60s with diltiazem infusion was stopped -continue to monitor -remains in AFib, rate controlled -continue home Eliquis and metoprolol # Type 2 diabetes mellitus with hyperglycemia: Accu-Cheks and sliding scale insulin Patient had hypoglycemic, D10 infusion which is being weaned off Diet has been resume Lantus is on hold # Fall: Patient status post fall at home with contusion to the left eye CT head did not show any acute intracranial hemorrhage or suspicious mass effect, left frontal scalp hematoma without underlying fracture CT cervical spine: Straightening of the normal curvature of the cervical spine, likely muscular in origin. Degenerative disease, without acute fracture. CT chest abdomen pelvis: No acute evidence of traumatic injury # Essential hypertension: Blood pressure stable Continue amlodipine, lisinopril and metoprolol. # DVT prophylaxis: Apixaban # Stress ulcer prophylaxis: Protonix # Nutrition: Speech has cleared the patient for level 6 diet, soft and bite size # Code Status: Full code # physical deconditioning: Patient has a physical deconditioning due to multiple comorbidities and prolonge d stay on ventilation Consult rn intensive care unit, PT and OT for evaluation waiting for SNF placement Subjective Date/time seen: 05/20/24 15:50 Interval history: no overnight events, still sob and congested. no chest pain. discussed with the nursing staff Review of Systems Review of Systems: All systems reviewed & are unremarkable except as noted in HPI and below Exam Narrative: GENERAL: Ill-appearing, in no acute distress. Well-nourished. - EYES: EOMI. Anicteric. - HENT: Moist mucous membranes. - LUNGS: Lungs coarse breath sounds, so me rhonchi present. - CARDIOVASCULAR: Regular rate and rhyth m. No murmur. No JVD. - ABDOMEN: Soft, non-tender and non-dist ended. No palpable masses. - EXTREMITIES: 1 to 2+ edema bilateral lower extremities . Peripheral pulses 2+. Non-tender. - NEUROLOGIC: No focal neurological defi cits. CN II-XII grossly intact. General weakness, - PSYCHIATRIC: Awake, Alert and oriented x 3. Appropriate mood and affect. - SKIN: No rashes or lesions. Warm. - LYMPH: No cervical lymphadenopathy. Objective Data Vital Signs Vital Signs: Vital Signs - 24 hr 05/19/24 16:00 05/19/24 20:00 05/19/24 20:00 Temperature Pulse Rate 89 105 H 102 H Respiratory Rate 18 Blood Pressure Pulse Oximetry 99 Oxygen Delivery Nasal Cannula Oxygen Flow Rate 4 Fraction of Inspired Oxygen 28 05/19/24 20:20 05/19/24 20:21 05/19/24 20:36 Temperature Pulse Rate 81 83 Respiratory Rate 18 18 Blood Pressure Pulse Oximetry 93 Oxygen Delivery Nasal Cannula Oxygen Flow Rate 4 Fraction of Inspired Oxygen 05/19/24 20:50 05/20/24 00:00 05/20/24 02:00 Temperature 97.4 F L Pulse Rate 105 H 87 81 Respiratory Rate 18 18 Blood Pressure 156/83 H Pulse Oximetry 99 Oxygen Delivery Oxygen Flow Rate Fraction of Inspired Oxygen 05/20/24 02:17 05/20/24 04:00 05/20/24 05:00 Temperature 97.3 F L Pulse Rate 81 95 112 H Respiratory Rate 18 19 Blood Pressure 157/94 H Pulse Oximetry 93 Oxygen Delivery Oxygen Flow Rate Fraction of Inspired Oxygen 05/20/24 07:18 05/20/24 07:18 05/20/24 07:33 Temperature Pulse Rate 81 80 Respiratory Rate 20 22 H Blood Pressure Pulse Oximetry 93 Oxygen Delivery Nasal Cannula Oxygen Flow Rate 4 Fraction of Inspired Oxygen 36 05/20/24 08:00 05/20/24 08:04 05/20/24 09:50 Temperature 97.6 F Pulse Rate 100 84 Respiratory Rate 19 Blood Pressure 154/88 H Pulse Oximetry 93 97 Oxygen Delivery Nasal Cannula Oxygen Flow Rate 4 Fraction of Inspired Oxygen 36 05/20/24 09:52 05/20/24 12:00 05/20/24 13:07 Temperature Pulse Rate 95 84 Respiratory Rate Blood Pressure Pulse Oximetry 96 Oxygen Delivery Nasal Cannula Oxygen Flow Rate 4 Fraction of Inspired Oxygen 36 05/20/24 13:07 05/20/24 13:18 Temperature Pulse Rate 79 84 Respiratory Rate 24 H 24 H Blood Pressure Pulse Oximetry Oxygen Delivery Oxygen Flow Rate Fraction of Inspired Oxygen Intake/Output Intake/Output: Intake & Output 05/17/24 05/18/24 05/19/24 05/20/24 23:59 23:59 23:59 23:59 Intake Total 700 630 [id number] [id number] Output Total 300 100 Balance 400 027 646 4400 Meds/Results Medications: Active Medications Generic Name Dose Route Start Last Admin Trade Name Freq PRN Reason Stop Dose Admin Acetaminophen 650 mg 05/03/24 22:58 Acetaminophen 325 Mg Tablet PO Q6H PRN Mild Pain (1-3) or Fever Alteplase, Recombinant 2 mg 05/15/24 10:14 05/15/24 10:43 Alteplase 2 Mg Vial (Cathflo) IV PUSH 2 mg ONCE PRN Administration Line Occlusion Amlodipine Besylate 10 mg 05/06/24 09:50 05/20/24 09:52 Amlodipine Besylate 10 Mg Tablet PO 10 mg DAILY JR Administration Apixaban 5 mg 05/05/24 09:00 05/20/24 09:52 Apixaban 5 Mg Tablet PO 5 mg Q12HR JR Administration Aspirin 81 mg 05/04/24 09:00 05/20/24 09:52 Aspirin 81 Mg Enteric Tablet PO 81 mg DAILY JR Administration Benzocaine 1 lozenge 05/03/24 22:58 Benzocaine/Menthol (*Bkc) 18 Ea Lozenge PO PRN PRN Sore Throat Benzonatate 100 mg 05/03/24 22:58 Benzonatate 100 Mg Capsule PO TID PRN Cough Citalopram Hydrobromide 40 mg 05/13/24 21:00 05/19/24 20:37 Citalopram Hydrobromide 20 Mg Tablet PO 40 mg HS JR Administration Dextrose 12.5 gm 05/03/24 23:00 05/15/24 05:56 Dextrose 50% 25 Gm/50 Ml Syringe IV PUSH 12.5 gm PRN PRN Administration Hypoglycemia Protocol Glucagon 1 mg 05/03/24 23:00 Glucagon For Inj 1 Mg Vial IM PRN PRN Hypoglycemia Protocol Glucose 15 gm 05/03/24 23:00 Glucose Oral Gel 15 Gm Of Glucse In 37.5 Gm Tube PO PRN PRN Hypoglycemia Protocol Hydralazine HCl 10 mg 05/06/24 15:04 05/09/24 20:22 Hydralazine Hcl 20 Mg/Ml Vial IV PUSH 10 mg Q4H PRN Administration Blood Pressure - High Dextrose 1,000 mls @ 100 mls/hr 05/03/24 23:00 Dextrose 5% 1,000 Ml IVPB PRN PRN Hypoglycemia Protocol Insulin Aspart 3 - 6 units 05/16/24 17:00 05/20/24 12:14 Insulin Aspart (*Bkc) 100 Units/Ml SUB-Q 4 units TIDWM JR Administration Protocol Insulin Aspart 1 - 3 units 05/16/24 21:00 05/19/24 20:42 Insulin Aspart (*Bkc) 100 Units/Ml SUB-Q 1 units HS JR Administration Protocol Ipratropium Agar 0.5 mg 05/04/24 14:00 05/20/24 13:07 Ipratropium Br 0.02% Inh Soln 0.5 Mg/2.5 Ml Vial INHALATION 0.5 mg Q6HRT JR Administration Levalbuterol HCl 1.25 mg 05/04/24 14:00 05/20/24 13:07 Levalbuterol Neb 1.25 Mg/3 Ml INHALATION 1.25 mg Q6HRT JR Administration Lisinopril 5 mg 05/11/24 09:00 05/20/24 09:52 Lisinopril 5 Mg Tablet PO 5 mg DAILY JR Administration Metoprolol Tartrate 50 mg 05/16/24 21:00 05/20/24 09:52 Metoprolol Tartrate 50 Mg Tab PO 50 mg Q12HR JR Administration Ondansetron HCl 4 mg 05/04/24 03:23 05/16/24 20:20 Ondansetron Inj 4 Mg/2 Ml Vial IV PUSH 4 mg Q6H PRN Administration Nausea And Vomiting Pantoprazole Sodium 40 mg 05/04/24 09:00 05/20/24 09:53 Pantoprazole Sodium Iv 40 Mg Vial IV PUSH 40 mg DAILY JR Administration Polyethylene Glycol 17 gm 05/09/24 09:44 Polyethylene Glycol 3350 17 Gm Powd.Pack PO QAM PRN Constipation Senna/Docusate Sodium 1 tab 05/05/24 21:00 05/19/24 20:37 Senna/Docusate Sodium Tablet PO 1 tab HS JR Administration Sodium Chloride 10 ml 05/04/24 22:00 05/20/24 14:12 Central Line Flush IV PUSH 10 ml Q8HR JR Administration Sodium Chloride 10 ml 05/04/24 14:16 Central Line Flush IV PUSH PRN PRN with TPN bag changes Sodium Chloride 20 ml 05/04/24 14:16 05/19/24 05:46 Central Line Flush IV PUSH 20 ml PRN PRN Administration after blood draws Radiology Results: ITS Impressions Head CT 05/03/24 19:02 Impression: No acute intracranial hemorrhage or suspicious mass effect. Left frontal scalp hematoma without underlying fracture. Cervical Spine CT 05/03/24 19:08 Impression: Straightening of the normal curvature of the cervical spine, likely muscular in origin. Degenerative disease, without acute fracture. Chest/Abdomen/Pelvis CT 05/03/24 19:11 IMPRESSION: No cross-sectional imaging evidence of acute traumatic injury. Innumerable nonacute findings, as detailed above. Renal Ultrasound 05/05/24 08:23 IMPRESSION: 1. Normal kidneys. No hydronephrosis. Abdomen X-Ray 05/08/24 08:26 IMPRESSION: 1. No free intraperitoneal gas or dilated gas-filled loops of bowel to suggest obstruction. 2. Bilateral airspace opacities consistent with atelectasis or pneumonia. Chest X-Ray 05/14/24 06:12 IMPRESSION: Small bilateral pleural effusions. Supportive lines and tubes in good position. Labs Labs: Laboratory Results - last 24 hr 05/19/24 05/19/24 05/20/24 17:05 20:32 05:54 WBC 10.4 H RBC 3.74 L Hgb 10.9 L Hct 34.8 L MCV 93.0 MCH 29.1 MCHC 31.3 L RDW 13.5 Plt Count 194 MPV 10.6 H Sodium 139 Potassium 3.6 Chloride 99 Carbon Dioxide 33 H Anion Gap 7 BUN 27 H Creatinine 0.80 Estim Creat Clear Calc 76 Estimated GFR > 60 Glucose 225 H POC Capillary Glucose 199 H 248 H Calcium 9.3 Magnesium 2.0 Total Bilirubin 1.4 H AST 23 ALT 27 Alkaline Phosphatase 74 Total Protein 8.0 Albumin 3.7 05/20/24 05/20/24 08:09 12:07 WBC RBC Hgb Hct MCV MCH MCHC RDW Plt Count MPV Sodium Potassium Chloride Carbon Dioxide Anion Gap BUN Creatinine Estim Creat Clear Calc Estimated GFR Glucose POC Capillary Glucose 199 H 276 H Calcium Magnesium Total Bilirubin AST ALT Alkaline Phosphatase Total Protein Albumin
[2024-05-20 16:47] LABS: Glucose Point of Care 189 mg/dl (65-105)
[2024-05-20 20:23] LABS: NT Pro B Type Natriuretic Pept 3050 pg/mL (19.9-100)
[2024-05-20 21:36] LABS: Glucose Point of Care 254 mg/dl (65-105)
[2024-05-20] MEDS: CITALOPRAM HYDROBROMIDE 20 MG TABLET 40 MG PO (21:54)
[2024-05-20] MEDS: FUROSEMIDE INJ 40 MG/4 ML VIAL IV PUSH (22:19)
[2024-05-21] VITALS (23 sets, daily range): BP systolic 134–148; BP diastolic 70–91; PULSE 74–103; RESP 18–28; TEMP 36.5–36.8; O2SAT 90–100
[2024-05-21] MEDS: IPRATROPIUM BR 0.02% INH SOLN 0.5 MG/2.5 ML VIAL INHALATION ×4 (02:37→19:53)
[2024-05-21] MEDS: LEVALBUTEROL NEB 1.25 MG/3 ML INHALATION ×4 (02:37→19:53)
[2024-05-21] MEDS: CENTRAL LINE FLUSH 10 ML IV PUSH ×3 (06:00→21:09)
[2024-05-21 08:02] LABS: Glucose Point of Care 236 mg/dl (65-105)
[2024-05-21] MEDS: BUMETANIDE INJ 1 MG/4 ML VIAL IV PUSH ×2 (08:29→18:05)
[2024-05-21] MEDS: INSULIN ASPART (*BKC) 100 UNITS/ML SUB-Q ×2 (08:33→21:02)
[2024-05-21] MEDS: PANTOPRAZOLE SODIUM IV 40 MG VIAL IV PUSH (08:33)
[2024-05-21] MEDS: MONTELUKAST SODIUM 10 MG TABLET PO (08:34)
[2024-05-21] MEDS: ASPIRIN 81 MG ENTERIC TABLET PO (08:34)
[2024-05-21] MEDS: hydroCHLOROthiazide 12.5 MG CAPSULE PO (08:34)
[2024-05-21] MEDS: lisinopriL 5 MG TABLET PO (08:35)
[2024-05-21] MEDS: ATORVASTATIN 10 MG TABLET PO (08:35)
[2024-05-21] MEDS: APIXABAN 5 MG TABLET PO ×2 (08:35→20:59)
[2024-05-21] MEDS: amLODIPine BESYLATE 10 MG TABLET PO (08:35)
[2024-05-21] MEDS: METOPROLOL TARTRATE 50 MG TAB PO ×2 (08:46→20:59)
[2024-05-21 10:07] LABS: Alveolar/Arterial O2 Gradient 144.7 mmHg; Base Excess ABG 3.6 mEq/l (+/-2.0); Device NASAL CANNULA; Fractional Inspired Oxygen 36 %; HCO3 ABG 28.6 mEq/l (22.0-26.0); Modified Allen's Test Pass; PCO2 ABG 45.3 mmHg (35.0-45.0); PO2 ABG 59.4 mmHg (80.0-100.0); PO2 FiO2 Ratio Arterial Blood 1.65 %; Site Drawn RIGHT RADIAL; Total Hemoglobin 11.2 g/dL (12.0-18.0); pH ABG 7.418 (7.350-7.450)
[2024-05-21 12:11] LABS: Glucose Point of Care 190 mg/dl (65-105)
--- NOTE | 2024-05-21 12:24 | P.PNIM_ITS ---
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 use Qualified Code(s): E11.65 - Type 2 diabetes mellitus with hyperglycemia; Z79.4 - snf (current) use of insulin Code(s): E11.65 - Type 2 diabetes mellitus with hyperglycemia Status: Chronic (2) Acute respiratory failure with hypoxia and hypercapnia: Code(s): J96.01 - Acute respiratory failure with hypoxia; J96.02 - Acute respiratory failure with hypercapnia Status: Acute (3) PNA (pneumonia): Qualifiers: Pneumonia type: due to influenza A virus Qualified Code(s): J10.00 - Influenza due to other identified influenza virus with unspecified type of pneumonia Code(s): J18.9 - Pneumonia, unspecified organism Status: Acute (4) UTI (urinary tract infection): Qualifiers: Urinary tract infection type: acute cystitis Hematuria presence: without hematuria Qualified Code(s): N30.00 - Acute cystitis without hematuria Code(s): N39.0 - Urinary tract infection, site not specified Status: Acute (5) Influenza: Code(s): J11.1 - Influenza due to unidentified influenza virus with other respiratory manifestations Status: Acute (6) Sepsis: Qualifiers: Sepsis type: sepsis due to unspecified organism Sepsis acute organ dysfunction status: with acute organ dysfunction Severe sepsis acute organ dysfunction type: acute respiratory failure Acute respiratory failure type: with hypercapnia Severe sepsis shock status: without septic shock Qualified Code(s): A41.9 - Sepsis, unspecified organism; R65.20 - Severe sepsis without septic shock; J96.02 - Acute respiratory failure with hypercapnia Code(s): A41.9 - Sepsis, unspecified organism Status: Acute (7) Essential hypertension: Code(s): I10 - Essential (primary) hypertension Status: Chronic (8) Atrial fibrillation with RVR: Code(s): I48.91 - Unspecified atrial fibrillation Status: Acute Plan # Acute hypercapnic respiratory failure: Acute hypercapnic respiratory failure despite being on BiPAP, patient had altered mental status, hallucinations with worsening ABGs, patient is a smoker, possible undiagnosed COPD intubated on in the early hours of 05/04/2024 Patient was extubated 05/14. Continue bronchodilator Steroids have been weaned off -status post course of azithromycin cefepime -05/05: Vancomycin discontinued as MRSA screen negative Incentive spirometer now O2 therapy via nasal cannular recheck cxr with congestive changes. Started on diuresis 05/20/2024 Placed on BiPAP ABG 7.41/45/59// # Influenza: Influenza A positive, completed the 5 day course of Tamiflu Isolation # PNA (pneumonia): Pneumonia likely related to influenza/community-acquired status post complete course of antibiotics # UTI (urinary tract infection): Urinalysis reflective UTI 05/03: urine cultures growing E coli, pansensitive Completed antibiotics # Atrial fibrillation with RVR: AFib RVR on admission, initially was started on heparin infusion and diltiazem infusion, which were later discontinued -heart rate better controlled, patient was dropping her heart rates in the 60s with diltiazem infusion was stopped -continue to monitor -remains in AFib, rate controlled -continue home Eliquis and metoprolol # Type 2 diabetes mellitus with hyperglycemia: Accu-Cheks and sliding scale insulin Patient had hypoglycemic, D10 infusion which is being weaned off Diet has been resume Lantus is on hold # Fall: Patient status post fall at home with contusion to the left eye CT head did not show any acute intracranial hemorrhage or suspicious mass effect, left frontal scalp hematoma without underlying fracture CT cervical spine: Straightening of the normal curvature of the cervical spine, likely muscular in origin. Degenerative disease, without acute fracture. CT chest abdomen pelvis: No acute evidence of traumatic injury # Essential hypertension: Blood pressure stable Continue amlodipine, lisinopril and metoprolol. # DVT prophylaxis: Apixaban # Stress ulcer prophylaxis: Protonix # Nutrition: Speech has cleared the patient for level 6 diet, soft and bite size # Code Status: Full code # physical deconditioning: Patient has a physical deconditioning due to multiple comorbidities and prolonged stay on ventilation Consult healthcare management, PT and OT for evaluation waiting for SNF placement Subjective Date/time seen: 05/21/24 12:24 Interval history: Patient having respiratory distress this a.m.. Placed on BiPAP. Oxygenation was okay. ABG reviewed. Review of Systems Review of Systems: All systems reviewed & are unremarkable except as noted in HPI and below Exam Narrative: GENERAL: Ill-appearing, in mild respiratory distress with conversational dyspnea Well-nourished. - EYES: EOMI. Anicteric. - HENT: Moist mucous membranes. - LUNGS: Lungs coarse breath sounds, so me rhonchi present. - CARDIOVASCULAR: Regular rate and rhyth m. No murmur. No JVD. - ABDOMEN: Soft, non-tender and non-dist ended. No palpable masses. - EXTREMITIES: 1 to 2+ edema bilateral lower extremities . Peripheral pulses 2+. Non-tender. - NEUROLOGIC: No focal neurological defi cits. CN II-XII grossly intact. General weakness, - PSYCHIATRIC: Awake, Alert and oriented x 3. Appropriate mood and affect. - SKIN: No rashes or lesions. Warm. - LYMPH: No cervical lymphadenopathy. Objective Data Vital Signs Vital Signs: Vital Signs - 24 hr 05/20/24 13:07 05/20/24 13:07 05/20/24 13:18 Temperature Pulse Rate 79 84 Respiratory Rate 24 H 24 H Blood Pressure Pulse Oximetry 96 Oxygen Delivery Nasal Cannula Oxygen Flow Rate 4 Fraction of Inspired Oxygen 36 05/20/24 16:00 05/20/24 16:04 05/20/24 20:00 Temperature 97.6 F Pulse Rate 92 79 Respiratory Rate 18 Blood Pressure 145/71 H Pulse Oximetry 96 93 Oxygen Delivery Nasal Cannula Oxygen Flow Rate 4 Fraction of Inspired Oxygen 05/20/24 20:00 05/20/24 21:09 05/20/24 21:11 Temperature 97.7 F Pulse Rate 88 90 85 Respiratory Rate 20 20 Blood Pressure 151/78 H Pulse Oximetry 99 Oxygen Delivery Oxygen Flow Rate Fraction of Inspired Oxygen 05/20/24 21:12 05/20/24 21:21 05/20/24 21:53 Temperature Pulse Rate 89 102 H Respiratory Rate 20 Blood Pressure Pulse Oximetry 93 Oxygen Delivery Nasal Cannula Oxygen Flow Rate 4 Fraction of Inspired Oxygen 05/21/24 00:00 05/21/24 02:39 05/21/24 02:49 Temperature Pulse Rate 95 88 91 Respiratory Rate 22 H 22 H Blood Pressure Pulse Oximetry Oxygen Delivery Oxygen Flow Rate Fraction of Inspired Oxygen 05/21/24 04:00 05/21/24 05:02 05/21/24 07:37 Temperature 98.3 F Pulse Rate 85 82 Respiratory Rate 20 Blood Pressure 136/83 Pulse Oximetry 95 90 Oxygen Delivery Nasal Cannula Oxygen Flow Rate 4 Fraction of Inspired Oxygen 05/21/24 07:37 05/21/24 07:50 05/21/24 08:03 Temperature Pulse Rate 86 84 74 Respiratory Rate 28 H 28 H Blood Pressure Pulse Oximetry Oxygen Delivery Oxygen Flow Rate Fraction of Inspired Oxygen 05/21/24 08:30 05/21/24 08:46 Temperature 98 F Pulse Rate 97 103 H Respiratory Rate 20 Blood Pressure 138/70 Pulse Oximetry 93 Oxygen Delivery Oxygen Flow Rate Fraction of Inspired Oxygen Intake/Output Intake/Output: Intake & Output 05/18/24 05/19/24 05/20/24 05/21/24 23:59 23:59 23:59 23:59 Intake Total 311 477 2443 0 Output Total 100 0 1100 Balance 338 654 7657 -1100 Meds/Results Medications: Active Medications Generic Name Dose Route Start Last Admin Trade Name Freq PRN Reason Stop Dose Admin Acetaminophen 650 mg 05/03/24 22:58 Acetaminophen 325 Mg Tablet PO Q6H PRN Mild Pain (1-3) or Fever Alteplase, Recombinant 2 mg 05/15/24 10:14 05/15/24 10:43 Alteplase 2 Mg Vial (Cathflo) IV PUSH 2 mg ONCE PRN Administration Line Occlusion Amlodipine Besylate 10 mg 05/06/24 09:50 05/21/24 08:35 Amlodipine Besylate 10 Mg Tablet PO 10 mg DAILY JR Administration Apixaban 5 mg 05/05/24 09:00 05/21/24 08:35 Apixaban 5 Mg Tablet PO 5 mg Q12HR JR Administration Aspirin 81 mg 05/04/24 09:00 05/21/24 08:34 Aspirin 81 Mg Enteric Tablet PO 81 mg DAILY JR Administration Atorvastatin Calcium 10 mg 05/21/24 09:00 05/21/24 08:35 Atorvastatin 10 Mg Tablet PO 10 mg DAILY [facility] Administration Benzocaine 1 lozenge 05/03/24 22:58 Benzocaine/Menthol (*Bkc) 18 Ea Lozenge PO PRN PRN Sore Throat Benzonatate 100 mg 05/03/24 22:58 Benzonatate 100 Mg Capsule PO TID PRN Cough Bumetanide 1 mg 05/21/24 17:00 Bumetanide Inj 1 Mg/4 Ml Vial IV PUSH BID [facility] Citalopram Hydrobromide 40 mg 05/13/24 21:00 05/20/24 21:54 Citalopram Hydrobromide 20 Mg Tablet PO 40 mg HS JR Administration Dextrose 12.5 gm 05/03/24 23:00 05/15/24 05:56 Dextrose 50% 25 Gm/50 Ml Syringe IV PUSH 12.5 gm PRN PRN Administration Hypoglycemia Protocol Glucagon 1 mg 05/03/24 23:00 Glucagon For Inj 1 Mg Vial IM PRN PRN Hypoglycemia Protocol Glucose 15 gm 05/03/24 23:00 Glucose Oral Gel 15 Gm Of Glucse In 37.5 Gm Tube PO PRN PRN Hypoglycemia Protocol Hydralazine HCl 10 mg 05/06/24 15:04 05/09/24 20:22 Hydralazine Hcl 20 Mg/Ml Vial IV PUSH 10 mg Q4H PRN Administration Blood Pressure - High Hydrochlorothiazide 12.5 mg 05/21/24 09:00 05/21/24 08:34 Hydrochlorothiazide 12.5 Mg Capsule PO 12.5 mg DAILY JR Administration Dextrose 1,000 mls @ 100 mls/hr 05/03/24 23:00 Dextrose 5% 1,000 Ml IVPB PRN PRN Hypoglycemia Protocol Insulin Aspart 3 - 6 units 05/16/24 17:00 05/21/24 12:19 Insulin Aspart (*Bkc) 100 Units/Ml SUB-Q Not Given TIDWM JR Protocol Insulin Aspart 1 - 3 units 05/16/24 21:00 05/20/24 21:55 Insulin Aspart (*Bkc) 100 Units/Ml SUB-Q 2 units HS JR Administration Protocol Ipratropium [place] 0.5 mg 05/04/24 14:00 05/21/24 07:34 Ipratropium Br 0.02% Inh Soln 0.5 Mg/2.5 Ml Vial INHALATION 0.5 mg Q6HRT JR Administration Levalbuterol HCl 1.25 mg 05/04/24 14:00 05/21/24 07:35 Levalbuterol Neb 1.25 Mg/3 Ml INHALATION 1.25 mg Q6HRT JR Administration Lisinopril 5 mg 05/11/24 09:00 05/21/24 08:35 Lisinopril 5 Mg Tablet PO 5 mg DAILY JR Administration Metoprolol Tartrate 50 mg 05/16/24 21:00 05/21/24 08:46 Metoprolol Tartrate 50 Mg Tab PO 50 mg Q12HR JR Administration Montelukast Sodium 10 mg 05/21/24 09:00 05/21/24 08:34 Montelukast Sodium 10 Mg Tablet PO 10 mg DAILY JR Administration Ondansetron HCl 4 mg 05/04/24 03:23 05/16/24 20:20 Ondansetron Inj 4 Mg/2 Ml Vial IV PUSH 4 mg Q6H PRN Administration Nausea And Vomiting Pantoprazole Sodium 40 mg 05/04/24 09:00 05/21/24 08:33 Pantoprazole Sodium Iv 40 Mg Vial IV PUSH 40 mg DAILY JR Administration Polyethylene Glycol 17 gm 05/09/24 09:44 Polyethylene Glycol 3350 17 Gm Powd.Pack PO QAM PRN Constipation Senna/Docusate Sodium 1 tab 05/05/24 21:00 05/20/24 22:03 Senna/Docusate Sodium Tablet PO Not Given HS JR Sodium Chloride 10 ml 05/04/24 22:00 05/21/24 06:00 Central Line Flush IV PUSH 10 ml Q8HR JR Administration Sodium Chloride 10 ml 05/04/24 14:16 Central Line Flush IV PUSH PRN PRN with TPN bag changes Sodium Chloride 20 ml 05/04/24 14:16 05/19/24 05:46 Central Line Flush IV PUSH 20 ml PRN PRN Administration after blood draws Radiology Results: ITS Impressions Head CT 05/03/24 19:02 Impression: No acute intracranial hemorrhage or suspicious mass effect. Left frontal scalp hematoma without underlying fracture. Cervical Spine CT 05/03/24 19:08 Impression: Straightening of the normal curvature of the cervical spine, likely muscular in origin. Degenerative disease, without acute fracture. Chest/Abdomen/Pelvis CT 05/03/24 19:11 IMPRESSION: No cross-sectional imaging evidence of acute traumatic injury. Innumerable nonacute findings, as detailed above. Renal Ultrasound 05/05/24 08:23 IMPRESSION: 1. Normal kidneys. No hydronephrosis. Abdomen X-Ray 05/08/24 08:26 IMPRESSION: 1. No free intraperitoneal gas or dilated gas-filled loops of bowel to suggest obstruction. 2. Bilateral airspace opacities consistent with atelectasis or pneumonia. Chest X-Ray 05/21/24 08:21 IMPRESSION: 1. Worsened diffuse lung disease, consistent with pulmonary edema versus pneumonia. 2. Cardiomegaly. Labs Labs: Laboratory Results - last 24 hr 05/20/24 05/20/24 05/20/24 16:40 19:24 20:35 Puncture Site ABG pH ABG pCO2 ABG pO2 ABG PO2/FiO2 Ratio ABG HCO3 ABG O2 Saturation ABG O2 Content ABG Base Excess A-a Gradient Oxyhemoglobin Total Hemoglobin O2 Delivery Device O2 Liters/Min FiO2 POC Capillary Glucose 189 H 254 H NT-Pro-B Natriuret Pep 3050 H 05/21/24 05/21/24 05/21/24 07:52 09:56 11:53 Puncture Site Right radial ABG pH 7.418 ABG pCO2 45.3 H ABG pO2 59.4 L ABG PO2/FiO2 Ratio 1.65 ABG HCO3 28.6 H ABG O2 Saturation 91.0 L ABG O2 Content 14.0 L ABG Base Excess 3.6 A-a Gradient 144.7 Oxyhemoglobin 89.0 L Total Hemoglobin 11.2 L O2 Delivery Device Nasal cannula O2 Liters/Min 4.0 FiO2 36 POC Capillary Glucose 236 H 190 H NT-Pro-B Natriuret Pep
[2024-05-21 17:24] LABS: Glucose Point of Care 189 mg/dl (65-105)
[2024-05-21 18:52] LABS: Hematocrit 33.7 % (37.0-47.0); Hemoglobin 10.7 g/dL (12.0-15.0); Mean Corpuscular HGB Conc 31.8 g/dl (32-36); Mean Corpuscular Hemoglobin 29.7 pg (26-34); Mean Corpuscular Volume 93.6 fl (80-100); Mean Platelet Volume 10.9 fl (7.4-10.4); Platelet Count Result 195 k/mm3 (150-375); Red Cell Distribution Width 13.4 % (11.5-14.5); White Blood Count 7.5 K/mm3 (4.5-10.0)
[2024-05-21 19:03] LABS: Alanine Aminotransferase 24 U/L (6-35); Albumin Level 3.4 g/dL (3.5-5.1); Alkaline Phosphatase 74 U/L (38-126); Anion Gap 4 mmol/L (4-12); Aspartate Amino Transferase 20 U/L (14-36); Blood Urea Nitrogen 27 mg/dL (7-17); Calcium 9.2 mg/dL (8.4-10.2); Carbon Dioxide 38 mmol/L (22-30); Chloride 98 mmol/L (98-107); Estimated CRCL calculation 75 ml/min; Estimated Glomerular Filt Rate > 60; Glucose 191 mg/dL (65-110); Magnesium 1.8 mg/dL (1.6-2.3); Potassium 3.5 mmol/L (3.4-5.0); Sodium 140 mmol/L (137-145)
[2024-05-21] MEDS: SENNA/DOCUSATE SODIUM TABLET 1 TAB PO (21:00)
[2024-05-21] MEDS: CITALOPRAM HYDROBROMIDE 20 MG TABLET 40 MG PO (21:00)
[2024-05-21 22:02] LABS: Glucose Point of Care 262 mg/dl (65-105)
[2024-05-22] VITALS (15 sets, daily range): BP systolic 130–140; BP diastolic 21–69; PULSE 72–97; RESP 16–29; TEMP 36.3–36.8; O2SAT 92–100
--- NOTE | 2024-05-22 | ECHO_ITS ---
Patient Info Name: Ann Hill Age: 73 years : 1950 Gender: Female Ht: 64 in Wt: 291 lbs BSA: 2.52 m2 HR: 83 bpm BP: 139 / 21 mmHg Technical Quality: Poor Exam Date: 05/22/2024 3:28 PM Exam Location: Echo Lab Patient Status: Inpatient Admit Date: 05/03/2024 Staff Ordering Physician: Cam Hutton MD Canal Tender: Raman Juarez RDCS Attending Provider: Mireya Zendejas DO Exam Type: CA echo dop color flow w con Study Info Indications - CHF Complete two-dimensional, color flow and Doppler transthoracic echocardiogram is performed with contrast to opacify the left ventricle and to improve the deliniation of the left ventricle endocardial borders. Contrast/Agitated Saline Contrast/Ag. Saline: Definity Amount: 2.00 ml Existing IV Access: Yes Reason for Poor Study: poor echocardiographic windows Summary 1. Left ventricular systolic function is normal, estimated at 55-60%. 2. There is mildly increased left ventricular wall thickness. 3. The left ventricular diastolic function is abnormal. 4. Left atrial chamber dimension is mildly enlarged. 5. There is trace mitral valve regurgitation. 6. There is trace tricuspid valve regurgitation. 7. No pulmonary hypertension, estimated pulmonary arterial systolic pressure is 31 mmHg. Left Ventricle Left ventricular chamber dimension is normal. Left ventricular systolic function is normal, estimated at 55-60%. There is mildly increased left ventricular wall thickness. Left ventricular septal wall motion is normal. The left ventricular diastolic function is abnormal. Right Ventricle Right ventricular chamber dimension is normal. Right ventricular systolic function is normal. Left Atria Left atrial chamber dimension is mildly enlarged. Right Atria Right atrial chamber dimension is normal. Atrial Septum Intact interatrial septum visualized by color flow imaging. Aortic Valve The aortic valve is trileaflet. There is mild aortic valve sclerosis. There is no aortic valve stenosis. There is no aortic valve regurgitation. Pulmonic Valve The pulmonic valve is normal. There is no pulmonic valve stenosis. There is no pulmonic regurgitation. Mitral Valve The mitral valve has normal leaflets. There is no mitral valve stenosis. There is trace mitral valve regurgitation. Tricuspid Valve The tricuspid valve leaflets are normal. There is no significant tricuspid valve stenosis. There is trace tricuspid valve regurgitation. No pulmonary hypertension, estimated pulmonary arterial systolic pressure is 31 mmHg. Pericardium/Pleural The pericardium appears normal. There is no pericardial effusion. Inferior Vena Cava Normal inferior vena cava with >50% collapse upon inspiration consistent with Empty right atrial pressure, 5 mmHg. Aorta The aortic root size at the sinus of Valsalva is normal. The prox ascending aorta size is normal. Left Ventricular Outflow Tract Name Value Normal LVOT 2D LVOT Diameter 1.76 cm LVOT Doppler LVOT Peak Gradient 3 mmHg LVOT Mean Gradient 2 mmHg LVOT VTI 19.62 cm LVOT VTI/AV VTI Ratio 0.69 LVOT Stroke Volume 47.77 ml LVOT CO 9.94 l/min LVOT CI 3.94 L/min/m2 Pulmonic Valve Name Value Normal RVOT Doppler RVOT Peak Gradient 3 mmHg PV Doppler PV Peak Gradient 5 mmHg Mitral Valve Name Value Normal MV Doppler MV Decel Winkler 736.17 cm/s2 MV PHT 0 s MV Area (PHT) 6.36 cm2 4.00-5.00 MV Diastolic Function MV E Peak Velocity 87.82 cm/s MV A Peak Velocity 30.38 cm/s MV E/A 2.89 MV Decel Time 0 s MV Annular TDI MV E/e' (Septal) 14.91 <=8.00 MV E/e' (Lateral) 6.61 <=8.00 MV E/e' (Average) 10.76 Tricuspid Valve Name Value Normal TV Regurgitation Doppler TR Peak Velocity 253.83 cm/s TR Peak Gradient 26 mmHg Estimated PAP/RSVP RA Pressure 5 mmHg <=5 PA Systolic Pressure 31 mmHg <36 RV Systolic Pressure 31 mmHg <36 Aorta Name Value Normal Ascending Aorta Ao Root Diameter (MM) 2.99 cm Ao Root Diam Index (MM) 1.19 cm/m2 Aortic Valve Name Value Normal AV Doppler AV Peak Velocity 135.93 cm/s AV Peak Gradient 6 mmHg AV Mean Gradient 4 mmHg AV VTI 28.49 cm AV Area (Cont Eq VTI) 1.68 cm2 >=3.00 AV Area (Cont Eq Ralf) 1.77 cm2 AV Regurgitation 2D LVOT Area 2.43 cm2 Ventricles Name Value Normal LV Dimensions 2D/MM IVS Diastolic Thickness (2D) 1.26 cm 0.60-1.00 LVID Diastole (2D) 3.79 cm 3.80-5.20 LVIW Diastolic Thickness (2D) 1.90 cm 0.60-0.90 LVID Systole (2D) 2.44 cm 2.20-3.50 LVOT Diameter 1.76 cm LV Mass (2D Cubed) 233.97 g 67.00-162.00 LV Mass Index (2D Cubed) 0.01 g/cm2 0.00-0.01 Relative Wall Thickness (2D) 1.00 LV Fractional Shortening/Ejection Fraction 2D/MM LV Fractional Shortening (2D) 38 % 27-45 LV EF (2D Teicholz) 68 % 54-74 LV Diastolic Volume (4C MOD) 81.62 ml LV EF (4C MOD) 71 % LV Diastolic Volume (2C MOD) 53.61 ml LV EF (2C MOD) 82 % LV Diastolic Volume (BP MOD) 67.97 ml 46.00-106.00 LV Diastolic Volume Index (BP MOD) 0.03 l/m2 0.03-0.06 LV Systolic Volume (BP MOD) 15.46 ml 14.00-42.00 LV Systolic Volume Index (BP MOD) 0.01 l/m2 0.01-0.02 LV EF (BP MOD) 77 % 54-74 LV Diastolic Length (4C) 7.28 cm LV Systolic Length (4C) 5.83 cm LV Stroke Volume (4C MOD) 57.84 ml Atria Name Value Normal LA Dimensions LA Dimension (MM) 6.85 cm 2.70-3.80 LA Volume (4C A-L) 98.65 ml LA Volume (BP A-L) 98.00 ml RA Dimensions RA Area (4C) 26.96 cm2 <=18.00 Report Signatures
[2024-05-22] MEDS: LEVALBUTEROL NEB 1.25 MG/3 ML INHALATION ×2 (01:27→22:30)
[2024-05-22] MEDS: IPRATROPIUM BR 0.02% INH SOLN 0.5 MG/2.5 ML VIAL INHALATION ×2 (01:27→20:00)
[2024-05-22] MEDS: CENTRAL LINE FLUSH 10 ML IV PUSH ×3 (05:47→21:05)
[2024-05-22 08:26] LABS: Glucose Point of Care 199 mg/dl (65-105)
[2024-05-22] MEDS: ATORVASTATIN 10 MG TABLET PO (08:37)
[2024-05-22] MEDS: hydroCHLOROthiazide 12.5 MG CAPSULE PO (08:37)
[2024-05-22] MEDS: lisinopriL 5 MG TABLET PO (08:37)
[2024-05-22] MEDS: BUMETANIDE INJ 1 MG/4 ML VIAL IV PUSH ×2 (08:37→17:09)
[2024-05-22] MEDS: APIXABAN 5 MG TABLET PO ×2 (08:37→20:33)
[2024-05-22] MEDS: PANTOPRAZOLE SODIUM IV 40 MG VIAL IV PUSH (08:37)
[2024-05-22] MEDS: ASPIRIN 81 MG ENTERIC TABLET PO (08:37)
[2024-05-22] MEDS: MONTELUKAST SODIUM 10 MG TABLET PO (08:37)
[2024-05-22] MEDS: METOPROLOL TARTRATE 50 MG TAB PO ×2 (08:37→20:33)
[2024-05-22] MEDS: amLODIPine BESYLATE 10 MG TABLET PO (08:37)
--- NOTE | 2024-05-22 09:03 | PM.IMPN ---
Progress Note: A&P Assessment and Plan (1) Type 2 diabetes mellitus with hyperglycemia: Qualifiers: Diabetes mellitus terminal system operator insulin use: with care home use Qualified Code(s): E11.65 - Type 2 diabetes mellitus with hyperglycemia; Z79.4 - intermediate (current) use of insulin Code(s): E11.65 - Type 2 diabetes mellitus with hyperglycemia Status: Chronic (2) Acute respiratory failure with hypoxia and hypercapnia: Code(s): J96.01 - Acute respiratory failure with hypoxia; J96.02 - Acute respiratory failure with hypercapnia Status: Acute (3) PNA (pneumonia): Qualifiers: Pneumonia type: due to influenza A virus Qualified Code(s): J10.00 - Influenza due to other identified influenza virus with unspecified type of pneumonia Code(s): J18.9 - Pneumonia, unspecified organism Status: Acute (4) UTI (urinary tract infection): Qualifiers: Urinary tract infection type: acute cystitis Hematuria presence: without hematuria Qualified Code(s): N30.00 - Acute cystitis without hematuria Code(s): N39.0 - Urinary tract infection, site not specified Status: Acute (5) Influenza: Code(s): J11.1 - Influenza due to unidentified influenza virus with other respiratory manifestations Status: Acute (6) Sepsis: Qualifiers: Sepsis type: sepsis due to unspecified organism Sepsis acute organ dysfunction status: with acute organ dysfunction Severe sepsis acute organ dysfunction type: acute respiratory failure Acute respiratory failure type: with hypercapnia Severe sepsis shock status: without septic shock Qualified Code(s): A41.9 - Sepsis, unspecified organism; R65.20 - Severe sepsis without septic shock; J96.02 - Acute respiratory failure with hypercapnia Code(s): A41.9 - Sepsis, unspecified organism Status: Acute (7) Essential hypertension: Code(s): I10 - Essential (primary) hypertension Status: Chronic (8) Atrial fibrillation with RVR: Code(s): I48.91 - Unspecified atrial fibrillation Status: Acute Plan # Acute hypercapnic respiratory failure: Acute hypercapnic respiratory failure despite being on BiPAP, patient had altered mental status, hallucinations with worsening ABGs, patient is a smoker, possible undiagnosed COPD intubated on in the early hours of 05/04/2024 Patient was extubated 05/14. Continue bronchodilator Steroids have been weaned off -status post course of azithromycin cefepime -05/05: Vancomycin discontinued as MRSA screen negative Incentive spirometer now O2 therapy via nasal cannular recheck cxr with congestive changes. Started on diuresis 05/20/2024 [address] on BiPAP ABG 7.41/45/59// Improved now will taper off BiPAP Chest x-ray with improved congestion Continue IV diuresis as ordered Check echo Echo 11/19 with EF 65-70% abnormal diastolic function no pulmonary hypertension. # acute on chronic diastolic heart failure on diuresis. On lisinopril and metoprolol at. Check echo # Influenza: Influenza A positive, completed the 5 day course of Tamiflu Isolation # PNA (pneumonia): Pneumonia likely related to influenza/community-acquired status post complete course of antibiotics # UTI (urinary tract infection): Urinalysis reflective UTI 05/03: urine cultures growing E coli, pansensitive Completed antibiotics # Atrial fibrillation with RVR: AFib RVR on admission, initially was started on heparin infusion and diltiazem infusion, which were later discontinued -heart rate better controlled, patient was dropping her heart rates in the 60s with diltiazem infusion was stopped -continue to monitor -remains in AFib, rate controlled -continue home Eliquis and metoprolol # Type 2 diabetes mellitus with hyperglycemia: Accu-Cheks and sliding scale insulin Patient had hypoglycemic, D10 infusion which is being weaned off Diet has been resume Lantus is on hold # Fall: Patient status post fall at home with contusion to the left eye CT head did not show any acute intracranial hemorrhage or suspicious mass effect, left frontal scalp hematoma without underlying fracture CT cervical spine: Straightening of the normal curvature of the cervical spine, likely muscular in origin. Degenerative disease, without acute fracture. CT chest abdomen pelvis: No acute evidence of traumatic injury # Essential hypertension: Blood pressure stable Continue amlodipine, lisinopril and metoprolol. # DVT prophylaxis: Apixaban # Stress ulcer prophylaxis: Protonix # Nutrition: Speech has cleared the patient for level 6 diet, soft and bite size # Code Status: Full code # physical deconditioning: Patient has a physical deconditioning due to multiple comorbidities and prolonged stay on ventilation Consult progressive care unit registered nurse, PT and OT for evaluation waiting for SNF placement Subjective Date/time seen: 05/22/24 09:03 Interval history: Patient taken off the BiPAP this morning. On oxygen via nasal cannula. Feels better. Review of Systems Review of Systems: All systems reviewed & are unremarkable except as noted in HPI and below Exam Narrative: GENERAL: Ill-appearing, in no acute distress - EYES: EOMI. Anicteric. - HENT: Moist mucous membranes. - LUNGS: Lungs coarse breath sounds, some rhonchi present. - CARDIOVASCULAR: Regular rate and rhythm. No murmur. No JVD. - ABDOMEN: Soft, non-tender and non-distended. No palpable masses. - EXTREMITIES: 1 to 2+ edema bilateral lower extremities . Peripheral pulses 2+. Non-tender. - NEUROLOGIC: No focal neurological deficits. CN II-XII grossly intact. General weakness, - PSYCHIATRIC: Awake, Alert and oriented x 3. Appropriate mood and affect. - SKIN: No rashes or lesions. Warm. - LYMPH: No cervical lymphadenopathy. Objective Data Vital Signs Vital Signs: Vital Signs - 24 hr 05/21/24 10:00 05/21/24 12:01 05/21/24 12:58 Temperature Pulse Rate 75 78 Respiratory Rate 28 H 24 H Blood Pressure Pulse Oximetry 100 Oxygen Delivery BiPAP Oxygen Flow Rate 05/21/24 12:58 05/21/24 13:11 05/21/24 16:00 Temperature 97.7 F Pulse Rate 78 79 94 Respiratory Rate 24 H 21 H 20 Blood Pressure 134/82 Pulse Oximetry 95 94 Oxygen Delivery BiPAP Oxygen Flow Rate 05/21/24 16:03 05/21/24 19:54 05/21/24 19:58 Temperature Pulse Rate 76 97 Respiratory Rate 21 H Blood Pressure Pulse Oximetry 92 Oxygen Delivery Room Air Oxygen Flow Rate 05/21/24 20:00 05/21/24 20:00 05/21/24 20:03 Temperature Pulse Rate 90 97 Respiratory Rate 21 H Blood Pressure Pulse Oximetry 98 Oxygen Delivery Nasal Cannula Oxygen Flow Rate 2 05/21/24 20:59 05/21/24 21:04 05/21/24 23:45 Temperature 98.3 F Pulse Rate 89 87 97 Respiratory Rate 18 26 H Blood Pressure 148/91 H Pulse Oximetry 98 94 Oxygen Delivery BiPAP Oxygen Flow Rate 05/22/24 00:00 05/22/24 01:27 05/22/24 03:26 Temperature Pulse Rate 86 81 97 Respiratory Rate 21 H 29 H Blood Pressure Pulse Oximetry 94 Oxygen Delivery BiPAP Oxygen Flow Rate 05/22/24 04:00 05/22/24 05:22 05/22/24 08:33 Temperature 97.4 F L 97.9 F Pulse Rate 78 90 83 Respiratory Rate 16 20 Blood Pressure 133/69 139/21 L Pulse Oximetry 92 95 Oxygen Delivery Oxygen Flow Rate 05/22/24 08:37 Temperature Pulse Rate 83 Respiratory Rate Blood Pressure Pulse Oximetry Oxygen Delivery Oxygen Flow Rate Intake/Output Intake/Output: Intake & Output 05/19/24 05/20/24 05/21/24 05/22/24 23:59 23:59 23:59 23:59 Intake Total 705 1860 480 0 Output Total 0 2300 200 Balance 705 1860 -1820 -200 Meds/Results Medications: Active Medications Generic Name Dose Route Start Last Admin Trade Name Freq PRN Reason Stop Dose Admin Acetaminophen 650 mg 05/03/24 22:58 Acetaminophen 325 Mg Tablet PO Q6H PRN Mild Pain (1-3) or Fever Alteplase, Recombinant 2 mg 05/15/24 10:14 05/15/24 10:43 Alteplase 2 Mg Vial (Cathflo) IV PUSH 2 mg ONCE PRN Administration Line Occlusion Amlodipine Besylate 10 mg 05/06/24 09:50 05/22/24 08:37 Amlodipine Besylate 10 Mg Tablet PO 10 mg DAILY JR Administration Apixaban 5 mg 05/05/24 09:00 05/22/24 08:37 Apixaban 5 Mg Tablet PO 5 mg Q12HR JR Administration Aspirin 81 mg 05/04/24 09:00 05/22/24 08:37 Aspirin 81 Mg Enteric Tablet PO 81 mg DAILY JR Administration Atorvastatin Calcium 10 mg 05/21/24 09:00 05/22/24 08:37 Atorvastatin 10 Mg Tablet PO 10 mg DAILY JR Administration Benzocaine 1 lozenge 05/03/24 22:58 Benzocaine/Menthol (*Bkc) 18 Ea Lozenge PO PRN PRN Sore Throat Benzonatate 100 mg 05/03/24 22:58 Benzonatate 100 Mg Capsule PO TID PRN Cough Bumetanide 1 mg 05/21/24 17:00 05/22/24 08:37 Bumetanide Inj 1 Mg/4 Ml Vial IV PUSH 1 mg BID JR Administration Citalopram Hydrobromide 40 mg 05/13/24 21:00 05/21/24 21:00 Citalopram Hydrobromide 20 Mg Tablet PO 40 mg HS JR Administration Dextrose 12.5 gm 05/03/24 23:00 05/15/24 05:56 Dextrose 50% 25 Gm/50 Ml Syringe IV PUSH 12.5 gm PRN PRN Administration Hypoglycemia Protocol Glucagon 1 mg 05/03/24 23:00 Glucagon For Inj 1 Mg Vial IM PRN PRN Hypoglycemia Protocol Glucose 15 gm 05/03/24 23:00 Glucose Oral Gel 15 Gm Of Glucse In 37.5 Gm Tube PO PRN PRN Hypoglycemia Protocol Hydralazine HCl 10 mg 05/06/24 15:04 05/09/24 20:22 Hydralazine Hcl 20 Mg/Ml Vial IV PUSH 10 mg Q4H PRN Administration Blood Pressure - High Hydrochlorothiazide 12.5 mg 05/21/24 09:00 05/22/24 08:37 Hydrochlorothiazide 12.5 Mg Capsule PO 12.5 mg DAILY JR Administration Dextrose 1,000 mls @ 100 mls/hr 05/03/24 23:00 Dextrose 5% 1,000 Ml IVPB PRN PRN Hypoglycemia Protocol Insulin Aspart 3 - 6 units 05/16/24 17:00 05/22/24 08:32 Insulin Aspart (*Bkc) 100 Units/Ml SUB-Q Not Given TIDWM [facility] Protocol Insulin Aspart 1 - 3 units 05/16/24 21:00 05/21/24 21:02 Insulin Aspart (*Bkc) 100 Units/Ml SUB-Q 2 units HS JR Administration Protocol Ipratropium [place] 0.5 mg 05/04/24 14:00 05/22/24 08:48 Ipratropium Br 0.02% Inh Soln 0.5 Mg/2.5 Ml Vial INHALATION Not Given Q6HRT JR Levalbuterol HCl 1.25 mg 05/04/24 14:00 05/22/24 08:49 Levalbuterol Neb 1.25 Mg/3 Ml INHALATION Not Given Q6HRT JR Lisinopril 5 mg 05/11/24 09:00 05/22/24 08:37 Lisinopril 5 Mg Tablet PO 5 mg DAILY JR Administration Metoprolol Tartrate 50 mg 05/16/24 21:00 05/22/24 08:37 Metoprolol Tartrate 50 Mg Tab PO 50 mg Q12HR JR Administration Montelukast Sodium 10 mg 05/21/24 09:00 05/22/24 08:37 Montelukast Sodium 10 Mg Tablet PO 10 mg DAILY JR Administration Ondansetron HCl 4 mg 05/04/24 03:23 05/16/24 20:20 Ondansetron Inj 4 Mg/2 Ml Vial IV PUSH 4 mg Q6H PRN Administration Nausea And Vomiting Pantoprazole Sodium 40 mg 05/23/24 09:00 Pantoprazole 40 Mg Tablet PO QAM JR Polyethylene Glycol 17 gm 05/09/24 09:44 Polyethylene Glycol 3350 17 Gm Powd.Pack PO QAM PRN Constipation Senna/Docusate Sodium 1 tab 05/05/24 21:00 05/21/24 21:00 Senna/Docusate Sodium Tablet PO 1 tab HS JR Administration Sodium Chloride 10 ml 05/04/24 22:00 05/22/24 05:47 Central Line Flush IV PUSH 10 ml Q8HR JR Administration Sodium Chloride 10 ml 05/04/24 14:16 Central Line Flush IV PUSH PRN PRN with TPN bag changes Sodium Chloride 20 ml 05/04/24 14:16 05/19/24 05:46 Central Line Flush IV PUSH 20 ml PRN PRN Administration after blood draws Radiology Results: ITS Impressions Head CT 05/03/24 19:02 Impression: No acute intracranial hemorrhage or suspicious mass effect. Left frontal scalp hematoma without underlying fracture. Cervical Spine CT 05/03/24 19:08 Impression: Straightening of the normal curvature of the cervical spine, likely muscular in origin. Degenerative disease, without acute fracture. Chest/Abdomen/Pelvis CT 05/03/24 19:11 IMPRESSION: No cross-sectional imaging evidence of acute traumatic injury. Innumerable nonacute findings, as detailed above. Renal Ultrasound 05/05/24 08:23 IMPRESSION: 1. Normal kidneys. No hydronephrosis. Abdomen X-Ray 05/08/24 08:26 IMPRESSION: 1. No free intraperitoneal gas or dilated gas-filled loops of bowel to suggest obstruction. 2. Bilateral airspace opacities consistent with atelectasis or pneumonia. Chest X-Ray 05/22/24 06:49 Impression: Persistent left basilar/perihilar airspace consolidation which could reflect atelectasis/edema versus pneumonia. Significant interval improvement in right lung airspace disease since prior exam. Labs Labs: Laboratory Results - last 24 hr 05/21/24 05/21/24 05/21/24 09:56 11:53 17:06 WBC RBC Hgb Hct MCV MCH MCHC RDW Plt Count MPV Puncture Site Right radial ABG pH 7.418 ABG pCO2 45.3 H ABG pO2 59.4 L ABG PO2/FiO2 Ratio 1.65 ABG HCO3 28.6 H ABG O2 Saturation 91.0 L ABG O2 Content 14.0 L ABG Base Excess 3.6 A-a Gradient 144.7 Oxyhemoglobin 89.0 L Total Hemoglobin 11.2 L O2 Delivery Device Nasal cannula O2 Liters/Min 4.0 FiO2 36 Sodium Potassium Chloride Carbon Dioxide Anion Gap BUN Creatinine Estim Creat Clear Calc Estimated GFR Glucose POC Capillary Glucose 190 H 189 H Calcium Magnesium Total Bilirubin AST ALT Alkaline Phosphatase Total Protein Albumin 05/21/24 05/21/24 05/22/24 18:42 21:00 08:00 WBC 7.5 RBC 3.60 L Hgb 10.7 L Hct 33.7 L MCV 93.6 MCH 29.7 MCHC 31.8 L RDW 13.4 Plt Count 195 MPV 10.9 H Puncture Site ABG pH ABG pCO2 ABG pO2 ABG PO2/FiO2 Ratio ABG HCO3 ABG O2 Saturation ABG O2 Content ABG Base Excess A-a Gradient Oxyhemoglobin Total Hemoglobin O2 Delivery Device O2 Liters/Min FiO2 Sodium 140 Potassium 3.5 Chloride 98 Carbon Dioxide 38 H Anion Gap 4 BUN 27 H Creatinine 0.81 Estim Creat Clear Calc 75 Estimated GFR > 60 Glucose 191 H POC Capillary Glucose 262 H 199 H Calcium 9.2 Magnesium 1.8 Total Bilirubin 1.0 AST 20 ALT 24 Alkaline Phosphatase 74 Total Protein 8.0 Albumin 3.4 L
[2024-05-22 11:57] LABS: Glucose Point of Care 293 mg/dl (65-105)
[2024-05-22] MEDS: INSULIN ASPART (*BKC) 100 UNITS/ML SUB-Q ×3 (12:17→20:33)
[2024-05-22] MEDS: PERFLUTREN LIPID MICROSPHERES 1.5 ML VIAL DILUTED TO 10 ML TOTAL VOLUME IV PUSH (16:40)
--- NOTE | 2024-05-22 16:41 | IVDEFINITY ---
Prior to administration of IV Definity the patient was educated on the risks and benefits of the imaging enhancing agent including potential adverse side effects. The patient verbalized understanding. Allergies were verified. No exclusion criteria were identified and at least one of the following inclusion criteria were met: 1) physician request, 2) patient technically difficult to image (per the [place] [employer] guidelines of two or more segments not discernable within the apical view), or 3) questionable left ventricular function. ?
[2024-05-22 17:06] LABS: Glucose Point of Care 256 mg/dl (65-105)
[2024-05-22] MEDS: CITALOPRAM HYDROBROMIDE 20 MG TABLET 40 MG PO (20:33)
[2024-05-22] MEDS: SENNA/DOCUSATE SODIUM TABLET 1 TAB PO (20:33)
[2024-05-22 20:54] LABS: Glucose Point of Care 239 mg/dl (65-105)
[2024-05-23] VITALS (20 sets, daily range): BP systolic 126–145; BP diastolic 55–78; PULSE 73–106; RESP 16–26; TEMP 36.5–36.9; O2SAT 93–100
[2024-05-23] MEDS: LEVALBUTEROL NEB 1.25 MG/3 ML INHALATION ×4 (01:25→20:02)
[2024-05-23] MEDS: IPRATROPIUM BR 0.02% INH SOLN 0.5 MG/2.5 ML VIAL INHALATION ×4 (01:25→20:02)
[2024-05-23 05:16] LABS: Basophils Absolute Auto 0.1 K/mm3 (0.0-0.1); Eosinophils Absolute Auto 0.6 K/mm3 (0-0.3); Eosinophils Percent Auto 7.8 % (0-4.4); Hematocrit 31.1 % (37.0-47.0); Hemoglobin 9.6 g/dL (12.0-15.0); Immature Granulocyte Absolute 0.03 K/mm3 (0.00-0.031); Immature Granulocyte Percent A 0.4 % (0-0.5); Lymphocytes Absolute Auto 1.26 K/mm3 (0.9-3.2); Mean Corpuscular HGB Conc 30.9 g/dl (32-36); Mean Corpuscular Hemoglobin 28.8 pg (26-34); Mean Corpuscular Volume 93.4 fl (80-100); Mean Platelet Volume 10.4 fl (7.4-10.4); Monocytes Absolute Auto 0.6 K/mm3 (0.1-0.6); Monocytes Percent Auto 8.3 % (2.6-8.5); Neutrophils Absolute Auto 4.5 K/mm3 (1.3-6.7); Neutrophils Percent Auto 64.5 % (45.5-73.1); Platelet Count Result 177 k/mm3 (150-375); Red Blood Count 3.33 M/mm3 (4.2-5.4); Red Cell Distribution Width 13.3 % (11.5-14.5)
[2024-05-23] MEDS: CENTRAL LINE FLUSH 10 ML IV PUSH ×3 (05:35→22:49)
[2024-05-23 05:42] LABS: Alanine Aminotransferase 19 U/L (6-35); Albumin Level 2.8 g/dL (3.5-5.1); Alkaline Phosphatase 61 U/L (38-126); Anion Gap 3 mmol/L (4-12); Aspartate Amino Transferase 17 U/L (14-36); Bilirubin,Total 0.7 mg/dL (0.2-1.3); Blood Urea Nitrogen 32 mg/dL (7-17); Calcium 8.5 mg/dL (8.4-10.2); Carbon Dioxide 39 mmol/L (22-30); Chloride 95 mmol/L (98-107); Estimated CRCL calculation 68 ml/min; Estimated Glomerular Filt Rate > 60; Glucose 199 mg/dL (65-110); Magnesium 1.6 mg/dL (1.6-2.3); Potassium 3.3 mmol/L (3.4-5.0); Sodium 137 mmol/L (137-145)
--- NOTE | 2024-05-23 07:20 | P.PNIM_ITS ---
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: with mcfp use Qualified Code(s): E11.65 - Type 2 diabetes mellitus with hyperglycemia; Z79.4 - long-term (current) use of insulin Code(s): E11.65 - Type 2 diabetes mellitus with hyperglycemia Status: Chronic (2) Acute respiratory failure with hypoxia and hypercapnia: Code(s): J96.01 - Acute respiratory failure with hypoxia; J96.02 - Acute respiratory failure with hypercapnia Status: Acute (3) PNA (pneumonia): Qualifiers: Pneumonia type: due to influenza A virus Qualified Code(s): J10.00 - Influenza due to other identified influenza virus with unspecified type of pneumonia Code(s): J18.9 - Pneumonia, unspecified organism Status: Acute (4) UTI (urinary tract infection): Qualifiers: Urinary tract infection type: acute cystitis Hematuria presence: without hematuria Qualified Code(s): N30.00 - Acute cystitis without hematuria Code(s): N39.0 - Urinary tract infection, site not specified Status: Acute (5) Influenza: Code(s): J11.1 - Influenza due to unidentified influenza virus with other respiratory manifestations Status: Acute (6) Sepsis: Qualifiers: Sepsis type: sepsis due to unspecified organism Sepsis acute organ dysfunction status: with acute organ dysfunction Severe sepsis acute organ dysfunction type: acute respiratory failure Acute respiratory failure type: with hypercapnia Severe sepsis shock status: without septic shock Qualified Code(s): A41.9 - Sepsis, unspecified organism; R65.20 - Severe sepsis without septic shock; J96.02 - Acute respiratory failure with hypercapnia Code(s): A41.9 - Sepsis, unspecified organism Status: Acute (7) Essential hypertension: Code(s): I10 - Essential (primary) hypertension Status: Chronic (8) Atrial fibrillation with RVR: Code(s): I48.91 - Unspecified atrial fibrillation Status: Acute Plan # Acute hypercapnic respiratory failure: Acute hypercapnic respiratory failure despite being on BiPAP, patient had altered mental status, hallucinations with worsening ABGs, patient is a smoker, possible undiagnosed COPD intubated on in the early hours of 05/04/2024 Patient was extubated 05/14. Continue bronchodilator Steroids have been weaned off -status post course of azithromycin cefepime -05/05: Vancomycin discontinued as MRSA screen negative Incentive spirometer now O2 therapy via nasal cannular recheck cxr with congestive changes. Started on diuresis 05/20/2024 [address] on BiPAP ABG 7.41/45/59// Improved now will taper off BiPAP Chest x-ray with improved congestion Continue IV diuresis as ordered Echo 11/19 with EF 65-70% abnormal diastolic function no pulmonary hypertension. # acute on chronic diastolic heart failure on diuresis. On lisinopril and metoprolol # Influenza: Influenza A positive, completed the 5 day course of Tamiflu Isolation # PNA (pneumonia): Pneumonia likely related to influenza/community-acquired status post complete course of antibiotics # UTI (urinary tract infection): Urinalysis reflective UTI 05/03: urine cultures growing E coli, pansensitive Completed antibiotics # Atrial fibrillation with RVR: AFib RVR on admission, initially was started on heparin infusion and diltiazem infusion, which were later discontinued -heart rate better controlled, patient was dropping her heart rates in the 60s with diltiazem infusion was stopped -continue to monitor -remains in AFib, rate controlled -continue home Eliquis and metoprolol # Type 2 diabetes mellitus with hyperglycemia: Accu-Cheks and sliding scale insulin Patient had hypoglycemic, D10 infusion which is being weaned off Diet has been resume Lantus is on hold # Fall: Patient status post fall at home with contusion to the left eye CT head did not show any acute intracranial hemorrhage or suspicious mass effect, left frontal scalp hematoma without underlying fracture CT cervical spine: Straightening of the normal curvature of the cervical spine, likely muscular in origin. Degenerative disease, without acute fracture. CT chest abdomen pelvis: No acute evidence of traumatic injury # Essential hypertension: Blood pressure stable Continue amlodipine, lisinopril and metoprolol. # DVT prophylaxis: Apixaban # Stress ulcer prophylaxis: Protonix # Nutrition: Speech has cleared the patient for level 6 diet, soft and bite size # Code Status: Full code # physical deconditioning: Patient has a physical deconditioning due to multiple comorbidities and prolonged stay on ventilation Consult health care legal assistant, PT and OT for evaluation waiting for SNF placement Time Spent With Patient Time with patient: Greater than 35 minutes Subjective Date/time seen: 05/23/24 07:20 Interval history: 33-year-old female here with respiratory failure and flu. Patient taken off the BiPAP this morning. On oxygen via nasal cannula. Feels better. Review of Systems Review of Systems: All systems reviewed & are unremarkable except as noted in HPI and below ROS unobtainable: Yes unobtainable due to endotracheal tube and unobtainable due to medical condition Exam Narrative: GENERAL: Ill-appearing, in no acute distress - EYES: EOMI. Anicteric. - HENT: Moist mucous membranes. - LUNGS: Lungs coarse breath sounds, so me rhonchi present. - CARDIOVASCULAR: Regular rate and rhyth m. No murmur. No JVD. - ABDOMEN: Soft, non-tender and non-dist ended. No palpable masses. - EXTREMITIES: 1 to 2+ edema bilateral lower extremities . Peripheral pulses 2+. Non-tender. - NEUROLOGIC: No focal neurological defi cits. CN II-XII grossly intact. General weakness, - PSYCHIATRIC: Awake, Alert and oriented x 3. Appropriate mood and affect. - SKIN: No rashes or lesions. Warm. - LYMPH: No cervical lymphadenopathy. Objective Data Vital Signs Vital Signs: Vital Signs - 24 hr 05/22/24 08:00 05/22/24 08:30 05/22/24 08:33 Temperature 97.9 F Pulse Rate 81 83 Respiratory Rate 20 Blood Pressure 139/21 L Pulse Oximetry 96 95 Oxygen Delivery Nasal Cannula Oxygen Flow Rate 3 Fraction of Inspired Oxygen 05/22/24 08:37 05/22/24 12:00 05/22/24 14:12 Temperature 97.4 F L Pulse Rate 83 87 81 Respiratory Rate 20 Blood Pressure 130/68 Pulse Oximetry 100 Oxygen Delivery Oxygen Flow Rate Fraction of Inspired Oxygen 05/22/24 16:00 05/22/24 19:41 05/22/24 20:00 Temperature 98.3 F Pulse Rate 72 93 93 Respiratory Rate 20 20 Blood Pressure 140/64 Pulse Oximetry 100 100 Oxygen Delivery Nasal Cannula Oxygen Flow Rate 2 Fraction of Inspired Oxygen 36 05/22/24 20:00 05/22/24 20:00 05/22/24 20:00 Temperature Pulse Rate 93 88 Respiratory Rate 21 H Blood Pressure Pulse Oximetry 100 Oxygen Delivery Nasal Cannula Oxygen Flow Rate 2 Fraction of Inspired Oxygen 05/22/24 21:15 05/23/24 00:00 05/23/24 00:00 Temperature 98.4 F Pulse Rate 88 77 82 Respiratory Rate 21 H 20 Blood Pressure 145/67 H Pulse Oximetry 100 Oxygen Delivery Oxygen Flow Rate Fraction of Inspired Oxygen 05/23/24 01:25 05/23/24 01:45 05/23/24 01:45 Temperature Pulse Rate 88 88 77 Respiratory Rate 21 H 21 H 26 H Blood Pressure Pulse Oximetry 93 Oxygen Delivery BiPAP Oxygen Flow Rate Fraction of Inspired Oxygen 05/23/24 04:00 05/23/24 04:05 Temperature Pulse Rate 82 89 Respiratory Rate 20 Blood Pressure Pulse Oximetry 93 Oxygen Delivery BiPAP Oxygen Flow Rate Fraction of Inspired Oxygen Intake/Output Intake/Output: Intake & Output 05/20/24 05/21/24 05/22/24 05/23/24 23:59 23:59 23:59 23:59 Intake Total 5290 803 9233 150 Output Total 0 2300 200 Balance 1860 -1820 1140 150 Meds/Results Medications: Active Medications Generic Name Dose Route Start Last Admin Trade Name Freq PRN Reason Stop Dose Admin Acetaminophen 650 mg 05/03/24 22:58 Acetaminophen 325 Mg Tablet PO Q6H PRN Mild Pain (1-3) or Fever Alteplase, Recombinant 2 mg 05/15/24 10:14 05/15/24 10:43 Alteplase 2 Mg Vial (Cathflo) IV PUSH 2 mg ONCE PRN Administration Line Occlusion Amlodipine Besylate 10 mg 05/06/24 09:50 05/22/24 08:37 Amlodipine Besylate 10 Mg Tablet PO 10 mg DAILY JR Administration Apixaban 5 mg 05/05/24 09:00 05/22/24 20:33 Apixaban 5 Mg Tablet PO 5 mg Q12HR JR Administration Aspirin 81 mg 05/04/24 09:00 05/22/24 08:37 Aspirin 81 Mg Enteric Tablet PO 81 mg DAILY JR Administration Atorvastatin Calcium 10 mg 05/21/24 09:00 05/22/24 08:37 Atorvastatin 10 Mg Tablet PO 10 mg DAILY JR Administration Benzocaine 1 lozenge 05/03/24 22:58 Benzocaine/Menthol (*Bkc) 18 Ea Lozenge PO PRN PRN Sore Throat Benzonatate 100 mg 05/03/24 22:58 Benzonatate 100 Mg Capsule PO TID PRN Cough Bumetanide 1 mg 05/21/24 17:00 05/22/24 17:09 Bumetanide Inj 1 Mg/4 Ml Vial IV PUSH 1 mg BID JR Administration Citalopram Hydrobromide 40 mg 05/13/24 21:00 05/22/24 20:33 Citalopram Hydrobromide 20 Mg Tablet PO 40 mg HS JR Administration Dextrose 12.5 gm 05/03/24 23:00 05/15/24 05:56 Dextrose 50% 25 Gm/50 Ml Syringe IV PUSH 12.5 gm PRN PRN Administration Hypoglycemia Protocol Glucagon 1 mg 05/03/24 23:00 Glucagon For Inj 1 Mg Vial IM PRN PRN Hypoglycemia Protocol Glucose 15 gm 05/03/24 23:00 Glucose Oral Gel 15 Gm Of Glucse In 37.5 Gm Tube PO PRN PRN Hypoglycemia Protocol Hydralazine HCl 10 mg 05/06/24 15:04 05/09/24 20:22 Hydralazine Hcl 20 Mg/Ml Vial IV PUSH 10 mg Q4H PRN Administration Blood Pressure - High Hydrochlorothiazide 12.5 mg 05/21/24 09:00 05/22/24 08:37 Hydrochlorothiazide 12.5 Mg Capsule PO 12.5 mg DAILY JR Administration Dextrose 1,000 mls @ 100 mls/hr 05/03/24 23:00 Dextrose 5% 1,000 Ml IVPB PRN PRN Hypoglycemia Protocol Insulin Aspart 3 - 6 units 05/16/24 17:00 05/22/24 17:09 Insulin Aspart (*Bkc) 100 Units/Ml SUB-Q 4 units TIDWM JR Administration Protocol Insulin Aspart 1 - 3 units 05/16/24 21:00 05/22/24 20:33 Insulin Aspart (*Bkc) 100 Units/Ml SUB-Q 1 units HS JR Administration Protocol Ipratropium [place] 0.5 mg 05/04/24 14:00 05/23/24 01:25 Ipratropium Br 0.02% Inh Soln 0.5 Mg/2.5 Ml Vial INHALATION 0.5 mg Q6HRT JR Administration Levalbuterol HCl 1.25 mg 05/04/24 14:00 05/23/24 01:25 Levalbuterol Neb 1.25 Mg/3 Ml INHALATION 1.25 mg Q6HRT JR Administration Lisinopril 5 mg 05/11/24 09:00 05/22/24 08:37 Lisinopril 5 Mg Tablet PO 5 mg DAILY JR Administration Metoprolol Tartrate 50 mg 05/16/24 21:00 05/22/24 20:33 Metoprolol Tartrate 50 Mg Tab PO 50 mg Q12HR JR Administration Montelukast Sodium 10 mg 05/21/24 09:00 05/22/24 08:37 Montelukast Sodium 10 Mg Tablet PO 10 mg DAILY JR Administration Ondansetron HCl 4 mg 05/04/24 03:23 05/16/24 20:20 Ondansetron Inj 4 Mg/2 Ml Vial IV PUSH 4 mg Q6H PRN Administration Nausea And Vomiting Pantoprazole Sodium 40 mg 05/23/24 09:00 Pantoprazole 40 Mg Tablet PO QAM JR Polyethylene Glycol 17 gm 05/09/24 09:44 Polyethylene Glycol 3350 17 Gm Powd.Pack PO QAM PRN Constipation Senna/Docusate Sodium 1 tab 05/05/24 21:00 05/22/24 20:33 Senna/Docusate Sodium Tablet PO 1 tab HS JR Administration Sodium Chloride 10 ml 05/04/24 22:00 05/23/24 05:35 Central Line Flush IV PUSH 10 ml Q8HR JR Administration Sodium Chloride 10 ml 05/04/24 14:16 Central Line Flush IV PUSH PRN PRN with TPN bag changes Sodium Chloride 20 ml 05/04/24 14:16 05/19/24 05:46 Central Line Flush IV PUSH 20 ml PRN PRN Administration after blood draws Radiology Results: ITS Impressions Head CT 05/03/24 19:02 Impression: No acute intracranial hemorrhage or suspicious mass effect. Left frontal scalp hematoma without underlying fracture. Cervical Spine CT 05/03/24 19:08 Impression: Straightening of the normal curvature of the cervical spine, likely muscular in origin. Degenerative disease, without acute fracture. Chest/Abdomen/Pelvis CT 05/03/24 19:11 IMPRESSION: No cross-sectional imaging evidence of acute traumatic injury. Innumerable nonacute findings, as detailed above. Renal Ultrasound 05/05/24 08:23 IMPRESSION: 1. Normal kidneys. No hydronephrosis. Abdomen X-Ray 05/08/24 08:26 IMPRESSION: 1. No free intraperitoneal gas or dilated gas-filled loops of bowel to suggest obstruction. 2. Bilateral airspace opacities consistent with atelectasis or pneumonia. Chest X-Ray 05/22/24 06:49 Impression: Persistent left basilar/perihilar airspace consolidation which could reflect atelectasis/edema versus pneumonia. Significant interval improvement in right lung airspace disease since prior exam. Labs Labs: Laboratory Results - last 24 hr 05/22/24 05/22/24 05/22/24 08:00 11:49 17:00 WBC RBC Hgb Hct MCV MCH MCHC RDW Plt Count MPV Immature Gran % (Auto) Neut % (Auto) Lymph % (Auto) [place] % (Auto) Eos % (Auto) Baso % (Auto) Lymph # (Auto) [place] # (Auto) Eos # (Auto) Baso # (Auto) Abs Immat Gran (auto) Absolute Neuts (auto) Absolute Nucleated RBC Nucleated RBC % Sodium Potassium Chloride Carbon Dioxide Anion Gap BUN Creatinine Estim Creat Clear Calc Estimated GFR Glucose POC Capillary Glucose 199 H 293 H 256 H Calcium Magnesium Total Bilirubin AST ALT Alkaline Phosphatase Total Protein Albumin 05/22/24 05/23/24 05/23/24 19:38 05:08 05:09 WBC 7.0 RBC 3.33 L Hgb 9.6 L Hct 31.1 L MCV 93.4 MCH 28.8 MCHC 30.9 L RDW 13.3 Plt Count 177 MPV 10.4 Immature Gran % (Auto) 0.4 Neut % (Auto) 64.5 Lymph % (Auto) 18.0 L [place] % (Auto) 8.3 Eos % (Auto) 7.8 H Baso % (Auto) 1.0 Lymph # (Auto) 1.26 [place] # (Auto) 0.6 Eos # (Auto) 0.6 H Baso # (Auto) 0.1 Abs Immat Gran (auto) 0.03 Absolute Neuts (auto) 4.5 Absolute Nucleated RBC 0.000 Nucleated RBC % 0.0 Sodium 137 Potassium 3.3 L Chloride 95 L Carbon Dioxide 39 H Anion Gap 3 L BUN 32 H Creatinine 0.89 Estim Creat Clear Calc 68 Estimated GFR > 60 Glucose 199 H POC Capillary Glucose 239 H Calcium 8.5 Magnesium 1.6 Total Bilirubin 0.7 AST 17 ALT 19 Alkaline Phosphatase 61 Total Protein 7.0 Albumin 2.8 L Quality VTE Prophylaxis VTE prophylaxis: pharmacologic ordered
[2024-05-23 08:40] LABS: Glucose Point of Care 193 mg/dl (65-105)
[2024-05-23] MEDS: hydroCHLOROthiazide 12.5 MG CAPSULE PO (09:17)
[2024-05-23] MEDS: MONTELUKAST SODIUM 10 MG TABLET PO (09:17)
[2024-05-23] MEDS: METOPROLOL TARTRATE 50 MG TAB PO ×2 (09:17→20:28)
[2024-05-23] MEDS: PANTOPRAZOLE 40 MG TABLET PO (09:17)
[2024-05-23] MEDS: ATORVASTATIN 10 MG TABLET PO (09:17)
[2024-05-23] MEDS: lisinopriL 5 MG TABLET PO (09:17)
[2024-05-23] MEDS: amLODIPine BESYLATE 10 MG TABLET PO (09:17)
[2024-05-23] MEDS: APIXABAN 5 MG TABLET PO ×2 (09:17→20:28)
[2024-05-23] MEDS: BUMETANIDE INJ 1 MG/4 ML VIAL IV PUSH ×2 (09:18→17:20)
[2024-05-23] MEDS: ASPIRIN 81 MG ENTERIC TABLET PO (09:18)
[2024-05-23] MEDS: INSULIN GLARGINE (*BKC) 100 UNITS/ML 8 UNITS SUB-Q (09:18)
[2024-05-23] MEDS: POTASSIUM CHLORIDE 20 MEQ ER TABLET 40 MEQ PO (09:22)
--- NOTE | 2024-05-23 10:31 | PCNFU ---
Nutrition Follow-Up Complete: Suboptimal Energy Intake as related to mechanical ventilation as evidenced by NPO - Resolved goal: Meet estimated nutritional needs. Patient is progressing towards goal. We will continue current goal. Pt current nutrition is Soft and Bite Sized, Level 6/Heart Healthy/DBCC with Glucerna shakes BID (220kcals, 10g protein). Last recorded weight 129.8kg. Bowel Motility: +BM reported 05/22 Labs Reviewed:Glu 199, BUN 32, Hgb:9.6, HCT:33.1 Meds Noted:Lantus, Eliquis, NovoLog. Skin: WNL Additional Notes:Patient tolerating soft and bite sized, level 6 diet. Glucerna shakes providing an additional 220 kcal and 10 gm protein. Agree with diet orders. Will monitor weight, labs, skin, diet orders, meds every 7 days.
[2024-05-23 12:04] LABS: Glucose Point of Care 316 mg/dl (65-105)
[2024-05-23] MEDS: INSULIN ASPART (*BKC) 100 UNITS/ML SUB-Q ×3 (12:08→20:30)
--- NOTE | 2024-05-23 12:23 | P.PNIM_ITS ---
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 insulin use: with detention use Qualified Code(s): E11.65 - Type 2 diabetes mellitus with hyperglycemia; Z79.4 - halfway (current) use of insulin Code(s): E11.65 - Type 2 diabetes mellitus with hyperglycemia Status: Chronic (2) Acute respiratory failure with hypoxia and hypercapnia: Code(s): J96.01 - Acute respiratory failure with hypoxia; J96.02 - Acute respiratory failure with hypercapnia Status: Acute (3) PNA (pneumonia): Qualifiers: Pneumonia type: due to influenza A virus Qualified Code(s): J10.00 - Influenza due to other identified influenza virus with unspecified type of pneumonia Code(s): J18.9 - Pneumonia, unspecified organism Status: Acute (4) UTI (urinary tract infection): Qualifiers: Urinary tract infection type: acute cystitis Hematuria presence: without hematuria Qualified Code(s): N30.00 - Acute cystitis without hematuria Code(s): N39.0 - Urinary tract infection, site not specified Status: Acute (5) Influenza: Code(s): J11.1 - Influenza due to unidentified influenza virus with other respiratory manifestations Status: Acute (6) Sepsis: Qualifiers: Sepsis type: sepsis due to unspecified organism Sepsis acute organ dysfunction status: with acute organ dysfunction Severe sepsis acute organ dysfunction type: acute respiratory failure Acute respiratory failure type: with hypercapnia Severe sepsis shock status: without septic shock Qualified Code(s): A41.9 - Sepsis, unspecified organism; R65.20 - Severe sepsis without septic shock; J96.02 - Acute respiratory failure with hypercapnia Code(s): A41.9 - Sepsis, unspecified organism Status: Acute (7) Essential hypertension: Code(s): I10 - Essential (primary) hypertension Status: Chronic (8) Atrial fibrillation with RVR: Code(s): I48.91 - Unspecified atrial fibrillation Status: Acute Plan # Acute hypercapnic respiratory failure: Acute hypercapnic respiratory failure despite being on BiPAP, patient had altered mental status, hallucinations with worsening ABGs, patient is a smoker, possible undiagnosed COPD intubated on in the early hours of 05/04/2024 Patient was extubated 05/14. Continue bronchodilator Steroids have been weaned off -status post course of azithromycin cefepime -05/05: Vancomycin discontinued as MRSA screen negative Incentive spirometer now O2 therapy via nasal cannular recheck cxr with congestive changes. Started on diuresis 05/20/2024 [address] on BiPAP ABG 7.41/45/59// Improved now will taper off BiPAP Chest x-ray with improved congestion but it still persists some Continue IV diuresis as ordered Echo 11/19 with EF 65-70% abnormal diastolic function no pulmonary hypertension. # acute on chronic diastolic heart failure on diuresis. On lisinopril and metoprolol # Influenza: Influenza A positive, completed the 5 day course of Tamiflu Isolation # PNA (pneumonia): Pneumonia likely related to influenza/community-acquired status post complete course of antibiotics # UTI (urinary tract infection): Urinalysis reflective UTI 05/03: urine cultures growing E coli, pansensitive Completed antibiotics # Atrial fibrillation with RVR: AFib RVR on admission, initially was started on heparin infusion and diltiazem infusion, which were later discontinued -heart rate better controlled, patient was dropping her heart rates in the 60s with diltiazem infusion was stopped -continue to monitor -remains in AFib, rate controlled -continue home Eliquis and metoprolol # Type 2 diabetes mellitus with hyperglycemia: Accu-Cheks and sliding scale insulin Patient had hypoglycemic, D10 infusion which is being weaned off Diet has been resume Lantus is on hold # Fall: Patient status post fall at home with contusion to the left eye CT head did not show any acute intracranial hemorrhage or suspicious mass effect, left frontal scalp hematoma without underlying fracture CT cervical spine: Straightening of the normal curvature of the cervical spine, likely muscular in origin. Degenerative disease, without acute fracture. CT chest abdomen pelvis: No acute evidence of traumatic injury # Essential hypertension: Blood pressure stable Continue amlodipine, lisinopril and metoprolol. # DVT prophylaxis: Apixaban # Stress ulcer prophylaxis: Protonix # Nutrition: Speech has cleared the patient for level 6 diet, soft and bite size # Code Status: Full code # physical deconditioning: Patient has a physical deconditioning due to multiple comorbidities and prolonged stay on ventilation Consult health care sanitary technician, PT and OT for evaluation SNF placement planned Awaiting stabilization medically Recheck chest x-ray in a.m. Subjective Date/time seen: 05/23/24 12:23 Interval history: No overnight events. Feels better. Use BiPAP last night. On 2 L oxygen via nasal cannula this a.m.. Still has minimal cough. Chest x-ray reviewed. Review of Systems Review of Systems: All systems reviewed & are unremarkable except as noted in HPI and below Exam Narrative: GENERAL: Well-appearing, in no acute distress - EYES: EOMI. Anicteric. Bruise on left orbital area - HENT: Moist mucous membranes. - LUNGS: Lungs coarse breath sounds, so me rhonchi present. - CARDIOVASCULAR: Regular rate and rhyth m. No murmur. No JVD. - ABDOMEN: Soft, non-tender and non-dist ended. No palpable masses. - EXTREMITIES: 1 to 2+ edema bilateral lower extremities . Peripheral pulses 2+. Non-tender. - NEUROLOGIC: No focal neurological defi cits. CN II-XII grossly intact. General weakness, - PSYCHIATRIC: Awake, Alert and oriented x 3. Appropriate mood and affect. - SKIN: No rashes or lesions. Warm. - LYMPH: No cervical lymphadenopathy. Objective Data Vital Signs Vital Signs: Vital Signs - 24 hr 05/22/24 14:12 05/22/24 16:00 05/22/24 19:41 Temperature 97.4 F L 98.3 F Pulse Rate 81 72 93 Respiratory Rate 20 20 Blood Pressure 130/68 140/64 Pulse Oximetry 100 100 Oxygen Delivery Oxygen Flow Rate Fraction of Inspired Oxygen 05/22/24 20:00 05/22/24 20:00 05/22/24 20:00 Temperature Pulse Rate 93 93 88 Respiratory Rate 20 21 H Blood Pressure Pulse Oximetry 100 Oxygen Delivery Nasal Cannula Oxygen Flow Rate 2 Fraction of Inspired Oxygen 36 05/22/24 20:00 05/22/24 21:15 05/23/24 00:00 Temperature Pulse Rate 88 77 Respiratory Rate 21 H Blood Pressure Pulse Oximetry 100 Oxygen Delivery Nasal Cannula Oxygen Flow Rate 2 Fraction of Inspired Oxygen 05/23/24 00:00 05/23/24 01:25 05/23/24 01:45 Temperature 98.4 F Pulse Rate 82 88 88 Respiratory Rate 20 21 H 21 H Blood Pressure 145/67 H Pulse Oximetry 100 Oxygen Delivery Oxygen Flow Rate Fraction of Inspired Oxygen 05/23/24 01:45 05/23/24 04:00 05/23/24 04:05 Temperature Pulse Rate 77 82 89 Respiratory Rate 26 H 20 Blood Pressure Pulse Oximetry 93 93 Oxygen Delivery BiPAP BiPAP Oxygen Flow Rate Fraction of Inspired Oxygen 05/23/24 08:00 05/23/24 08:00 05/23/24 08:14 Temperature 97.7 F Pulse Rate 89 84 Respiratory Rate 18 Blood Pressure 144/78 H Pulse Oximetry 100 93 Oxygen Delivery Nasal Cannula Oxygen Flow Rate 2 Fraction of Inspired Oxygen 05/23/24 08:14 05/23/24 08:28 05/23/24 09:15 Temperature Pulse Rate 100 80 Respiratory Rate 20 20 Blood Pressure Pulse Oximetry 96 Oxygen Delivery Nasal Cannula Oxygen Flow Rate 2 Fraction of Inspired Oxygen 05/23/24 09:17 Temperature Pulse Rate 96 Respiratory Rate Blood Pressure Pulse Oximetry Oxygen Delivery Oxygen Flow Rate Fraction of Inspired Oxygen Intake/Output Intake/Output: Intake & Output 05/20/24 05/21/24 05/22/24 05/23/24 23:59 23:59 23:59 23:59 Intake Total 7725 722 3888 510 Output Total 0 2300 200 Balance 1860 -1820 1140 510 Meds/Results Medications: Active Medications Generic Name Dose Route Start Last Admin Trade Name Freq PRN Reason Stop Dose Admin Acetaminophen 650 mg 05/03/24 22:58 Acetaminophen 325 Mg Tablet PO Q6H PRN Mild Pain (1-3) or Fever Alteplase, Recombinant 2 mg 05/15/24 10:14 05/15/24 10:43 Alteplase 2 Mg Vial (Cathflo) IV PUSH 2 mg ONCE PRN Administration Line Occlusion Amlodipine Besylate 10 mg 05/06/24 09:50 05/23/24 09:17 Amlodipine Besylate 10 Mg Tablet PO 10 mg DAILY JR Administration Apixaban 5 mg 05/05/24 09:00 05/23/24 09:17 Apixaban 5 Mg Tablet PO 5 mg Q12HR JR Administration Aspirin 81 mg 05/04/24 09:00 05/23/24 09:18 Aspirin 81 Mg Enteric Tablet PO 81 mg DAILY JR Administration Atorvastatin Calcium 10 mg 05/21/24 09:00 05/23/24 09:17 Atorvastatin 10 Mg Tablet PO 10 mg DAILY JR Administration Benzocaine 1 lozenge 05/03/24 22:58 Benzocaine/Menthol (*Bkc) 18 Ea Lozenge PO PRN PRN Sore Throat Benzonatate 100 mg 05/03/24 22:58 Benzonatate 100 Mg Capsule PO TID PRN Cough Bumetanide 1 mg 05/21/24 17:00 05/23/24 09:18 Bumetanide Inj 1 Mg/4 Ml Vial IV PUSH 1 mg BID JR Administration Citalopram Hydrobromide 40 mg 05/13/24 21:00 05/22/24 20:33 Citalopram Hydrobromide 20 Mg Tablet PO 40 mg HS JR Administration Dextrose 12.5 gm 05/03/24 23:00 05/15/24 05:56 Dextrose 50% 25 Gm/50 Ml Syringe IV PUSH 12.5 gm PRN PRN Administration Hypoglycemia Protocol Glucagon 1 mg 05/03/24 23:00 Glucagon For Inj 1 Mg Vial IM PRN PRN Hypoglycemia Protocol Glucose 15 gm 05/03/24 23:00 Glucose Oral Gel 15 Gm Of Glucse In 37.5 Gm Tube PO PRN PRN Hypoglycemia Protocol Hydralazine HCl 10 mg 05/06/24 15:04 05/09/24 20:22 Hydralazine Hcl 20 Mg/Ml Vial IV PUSH 10 mg Q4H PRN Administration Blood Pressure - High Hydrochlorothiazide 12.5 mg 05/21/24 09:00 05/23/24 09:17 Hydrochlorothiazide 12.5 Mg Capsule PO 12.5 mg DAILY JR Administration Dextrose 1,000 mls @ 100 mls/hr 05/03/24 23:00 Dextrose 5% 1,000 Ml IVPB PRN PRN Hypoglycemia Protocol Insulin Aspart 3 - 6 units 05/16/24 17:00 05/23/24 12:08 Insulin Aspart (*Bkc) 100 Units/Ml SUB-Q 5 units TIDWM JR Administration Protocol Insulin Aspart 1 - 3 units 05/16/24 21:00 05/22/24 20:33 Insulin Aspart (*Bkc) 100 Units/Ml SUB-Q 1 units HS JR Administration Protocol Insulin Glargine 8 units 05/23/24 09:00 05/23/24 09:18 Insulin Glargine (*Bkc) 100 Units/Ml SUB-Q 8 units DAILY JR Administration Ipratropium Dilley 0.5 mg 05/04/24 14:00 05/23/24 08:12 Ipratropium Br 0.02% Inh Soln 0.5 Mg/2.5 Ml Vial INHALATION 0.5 mg Q6HRT JR Administration Levalbuterol HCl 1.25 mg 05/04/24 14:00 05/23/24 08:12 Levalbuterol Neb 1.25 Mg/3 Ml INHALATION 1.25 mg Q6HRT JR Administration Lisinopril 5 mg 05/11/24 09:00 05/23/24 09:17 Lisinopril 5 Mg Tablet PO 5 mg DAILY JR Administration Metoprolol Tartrate 50 mg 05/16/24 21:00 05/23/24 09:17 Metoprolol Tartrate 50 Mg Tab PO 50 mg Q12HR JR Administration Montelukast Sodium 10 mg 05/21/24 09:00 05/23/24 09:17 Montelukast Sodium 10 Mg Tablet PO 10 mg DAILY JR Administration Ondansetron HCl 4 mg 05/04/24 03:23 05/16/24 20:20 Ondansetron Inj 4 Mg/2 Ml Vial IV PUSH 4 mg Q6H PRN Administration Nausea And Vomiting Pantoprazole Sodium 40 mg 05/23/24 09:00 05/23/24 09:17 Pantoprazole 40 Mg Tablet PO 40 mg QAM JR Administration Polyethylene Glycol 17 gm 05/09/24 09:44 Polyethylene Glycol 3350 17 Gm Powd.Pack PO QAM PRN Constipation Senna/Docusate Sodium 1 tab 05/05/24 21:00 05/22/24 20:33 Senna/Docusate Sodium Tablet PO 1 tab HS JR Administration Sodium Chloride 10 ml 05/04/24 22:00 05/23/24 12:08 Central Line Flush IV PUSH 10 ml Q8HR JR Administration Sodium Chloride 10 ml 05/04/24 14:16 Central Line Flush IV PUSH PRN PRN with TPN bag changes Sodium Chloride 20 ml 05/04/24 14:16 05/19/24 05:46 Central Line Flush IV PUSH 20 ml PRN PRN Administration after blood draws Radiology Results: ITS Impressions Head CT 05/03/24 19:02 Impression: No acute intracranial hemorrhage or suspicious mass effect. Left frontal scalp hematoma without underlying fracture. Cervical Spine CT 05/03/24 19:08 Impression: Straightening of the normal curvature of the cervical spine, likely muscular in origin. Degenerative disease, without acute fracture. Chest/Abdomen/Pelvis CT 05/03/24 19:11 IMPRESSION: No cross-sectional imaging evidence of acute traumatic injury. Innumerable nonacute findings, as detailed above. Renal Ultrasound 05/05/24 08:23 IMPRESSION: 1. Normal kidneys. No hydronephrosis. Abdomen X-Ray 05/08/24 08:26 IMPRESSION: 1. No free intraperitoneal gas or dilated gas-filled loops of bowel to suggest obstruction. 2. Bilateral airspace opacities consistent with atelectasis or pneumonia. Chest X-Ray 05/23/24 07:45 Impression: Worsening hazy right basilar/perihilar airspace disease, with persistent left lower lobe airspace disease. Correlate for worsening pulmonary edema versus pneumonia. Support line, as above. Labs Labs: Laboratory Results - last 24 hr 05/22/24 05/22/24 05/23/24 17:00 19:38 05:08 WBC 7.0 RBC 3.33 L Hgb 9.6 L Hct 31.1 L MCV 93.4 MCH 28.8 MCHC 30.9 L RDW 13.3 Plt Count 177 MPV 10.4 Immature Gran % (Auto) 0.4 Neut % (Auto) 64.5 Lymph % (Auto) 18.0 L Dent % (Auto) 8.3 Eos % (Auto) 7.8 H Baso % (Auto) 1.0 Lymph # (Auto) 1.26 Dent # (Auto) 0.6 Eos # (Auto) 0.6 H Baso # (Auto) 0.1 Abs Immat Gran (auto) 0.03 Absolute Neuts (auto) 4.5 Absolute Nucleated RBC 0.000 Nucleated RBC % 0.0 Sodium Potassium Chloride Carbon Dioxide Anion Gap BUN Creatinine Estim Creat Clear Calc Estimated GFR Glucose POC Capillary Glucose 256 H 239 H Calcium Magnesium Total Bilirubin AST ALT Alkaline Phosphatase Total Protein Albumin 05/23/24 05/23/24 05/23/24 05:09 08:23 11:43 WBC RBC Hgb Hct MCV MCH MCHC RDW Plt Count MPV Immature Gran % (Auto) Neut % (Auto) Lymph % (Auto) Dent % (Auto) Eos % (Auto) Baso % (Auto) Lymph # (Auto) Dent # (Auto) Eos # (Auto) Baso # (Auto) Abs Immat Gran (auto) Absolute Neuts (auto) Absolute Nucleated RBC Nucleated RBC % Sodium 137 Potassium 3.3 L Chloride 95 L Carbon Dioxide 39 H Anion Gap 3 L BUN 32 H Creatinine 0.89 Estim Creat Clear Calc 68 Estimated GFR > 60 Glucose 199 H POC Capillary Glucose 193 H 316 H Calcium 8.5 Magnesium 1.6 Total Bilirubin 0.7 AST 17 ALT 19 Alkaline Phosphatase 61 Total Protein 7.0 Albumin 2.8 L
[2024-05-23 17:03] LABS: Glucose Point of Care 220 mg/dl (65-105)
[2024-05-23] MEDS: ACETAMINOPHEN 325 MG TABLET 650 MG PO (20:28)
[2024-05-23] MEDS: CITALOPRAM HYDROBROMIDE 20 MG TABLET 40 MG PO (20:28)
[2024-05-23 20:49] LABS: Glucose Point of Care 310 mg/dl (65-105)
[2024-05-24] VITALS (19 sets, daily range): BP systolic 112–146; BP diastolic 60–72; PULSE 74–93; RESP 18–20; TEMP 36.4–36.9; O2SAT 95–100
[2024-05-24] MEDS: IPRATROPIUM BR 0.02% INH SOLN 0.5 MG/2.5 ML VIAL INHALATION ×4 (02:16→20:08)
[2024-05-24] MEDS: LEVALBUTEROL NEB 1.25 MG/3 ML INHALATION ×4 (02:16→20:08)
[2024-05-24 05:55] LABS: Basophils Absolute Auto 0.1 K/mm3 (0.0-0.1); Basophils Percent Auto 1.1 % (0.2-1.2); Eosinophils Absolute Auto 0.5 K/mm3 (0-0.3); Eosinophils Percent Auto 8.6 % (0-4.4); Hematocrit 31.8 % (37.0-47.0); Immature Granulocyte Absolute 0.02 K/mm3 (0.00-0.031); Immature Granulocyte Percent A 0.3 % (0-0.5); Lymphocytes Absolute Auto 1.38 K/mm3 (0.9-3.2); Lymphocytes Percent Auto 22.4 % (18.3-44.2); Mean Corpuscular HGB Conc 31.4 g/dl (32-36); Mean Corpuscular Hemoglobin 29.3 pg (26-34); Mean Corpuscular Volume 93.3 fl (80-100); Mean Platelet Volume 10.1 fl (7.4-10.4); Monocytes Absolute Auto 0.6 K/mm3 (0.1-0.6); Monocytes Percent Auto 8.9 % (2.6-8.5); Neutrophils Absolute Auto 3.6 K/mm3 (1.3-6.7); Neutrophils Percent Auto 58.7 % (45.5-73.1); Platelet Count Result 182 k/mm3 (150-375); Red Blood Count 3.41 M/mm3 (4.2-5.4); Red Cell Distribution Width 13.4 % (11.5-14.5); White Blood Count 6.2 K/mm3 (4.5-10.0)
[2024-05-24] MEDS: CENTRAL LINE FLUSH 10 ML IV PUSH ×3 (05:58→22:24)
[2024-05-24 06:13] LABS: Alanine Aminotransferase 17 U/L (6-35); Albumin Level 2.9 g/dL (3.5-5.1); Alkaline Phosphatase 61 U/L (38-126); Anion Gap 3 mmol/L (4-12); Aspartate Amino Transferase 19 U/L (14-36); Bilirubin,Total 0.7 mg/dL (0.2-1.3); Blood Urea Nitrogen 31 mg/dL (7-17); Calcium 8.6 mg/dL (8.4-10.2); Carbon Dioxide 39 mmol/L (22-30); Chloride 95 mmol/L (98-107); Estimated CRCL calculation 70 ml/min; Estimated Glomerular Filt Rate > 60; Glucose 192 mg/dL (65-110); Magnesium 1.6 mg/dL (1.6-2.3); Potassium 3.8 mmol/L (3.4-5.0); Sodium 137 mmol/L (137-145)
[2024-05-24 08:17] LABS: Glucose Point of Care 215 mg/dl (65-105)
[2024-05-24] MEDS: hydroCHLOROthiazide 12.5 MG CAPSULE PO (08:35)
[2024-05-24] MEDS: MONTELUKAST SODIUM 10 MG TABLET PO (08:35)
[2024-05-24] MEDS: lisinopriL 5 MG TABLET PO (08:35)
[2024-05-24] MEDS: APIXABAN 5 MG TABLET PO ×2 (08:35→21:11)
[2024-05-24] MEDS: METOPROLOL TARTRATE 50 MG TAB PO ×2 (08:35→21:11)
[2024-05-24] MEDS: PANTOPRAZOLE 40 MG TABLET PO (08:35)
[2024-05-24] MEDS: INSULIN ASPART (*BKC) 100 UNITS/ML SUB-Q ×4 (08:35→21:12)
[2024-05-24] MEDS: amLODIPine BESYLATE 10 MG TABLET PO (08:35)
[2024-05-24] MEDS: ASPIRIN 81 MG ENTERIC TABLET PO (08:35)
[2024-05-24] MEDS: ATORVASTATIN 10 MG TABLET PO (08:35)
[2024-05-24] MEDS: BUMETANIDE INJ 1 MG/4 ML VIAL IV PUSH ×2 (08:36→17:25)
[2024-05-24] MEDS: INSULIN GLARGINE (*BKC) 100 UNITS/ML 8 UNITS SUB-Q (08:36)
[2024-05-24 12:05] LABS: Glucose Point of Care 250 mg/dl (65-105)
--- NOTE | 2024-05-24 15:50 | PM.IMPN ---
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 Qualified Code(s): E11.65 - Type 2 diabetes mellitus with hyperglycemia; Z79.4 - group home (current) use of insulin Code(s): E11.65 - Type 2 diabetes mellitus with hyperglycemia Status: Chronic (2) Acute respiratory failure with hypoxia and hypercapnia: Code(s): J96.01 - Acute respiratory failure with hypoxia; J96.02 - Acute respiratory failure with hypercapnia Status: Acute (3) PNA (pneumonia): Qualifiers: Pneumonia type: due to influenza A virus Qualified Code(s): J10.00 - Influenza due to other identified influenza virus with unspecified type of pneumonia Code(s): J18.9 - Pneumonia, unspecified organism Status: Acute (4) UTI (urinary tract infection): Qualifiers: Urinary tract infection type: acute cystitis Hematuria presence: without hematuria Qualified Code(s): N30.00 - Acute cystitis without hematuria Code(s): N39.0 - Urinary tract infection, site not specified Status: Acute (5) Influenza: Code(s): J11.1 - Influenza due to unidentified influenza virus with other respiratory manifestations Status: Acute (6) Sepsis: Qualifiers: Sepsis type: sepsis due to unspecified organism Sepsis acute organ dysfunction status: with acute organ dysfunction Severe sepsis acute organ dysfunction type: acute respiratory failure Acute respiratory failure type: with hypercapnia Severe sepsis shock status: without septic shock Qualified Code(s): A41.9 - Sepsis, unspecified organism; R65.20 - Severe sepsis without septic shock; J96.02 - Acute respiratory failure with hypercapnia Code(s): A41.9 - Sepsis, unspecified organism Status: Acute (7) Essential hypertension: Code(s): I10 - Essential (primary) hypertension Status: Chronic (8) Atrial fibrillation with RVR: Code(s): I48.91 - Unspecified atrial fibrillation Status: Acute Plan # Acute hypercapnic respiratory failure: Acute hypercapnic respiratory failure despite being on BiPAP, patient had altered mental status, hallucinations with worsening ABGs, patient is a smoker, possible undiagnosed COPD intubated on in the early hours of 05/04/2024 Patient was extubated 05/14. Continue bronchodilator Steroids have been weaned off -status post course of azithromycin cefepime -05/05: Vancomycin discontinued as MRSA screen negative Incentive spirometer now O2 therapy via nasal cannular recheck cxr with congestive changes. Started on diuresis 05/20/2024 [address] on BiPAP ABG 7.41/45/59// Improved now will taper off BiPAP Chest x-ray with improved congestion but it still persists some Continue IV diuresis as ordered Echo 11/19 with EF 65-70% abnormal diastolic function no pulmonary hypertension. # acute on chronic diastolic heart failure on diuresis. On lisinopril and metoprolol # Influenza: Influenza A positive, completed the 5 day course of Tamiflu Isolation # PNA (pneumonia): Pneumonia likely related to influenza/community-acquired status post complete course of antibiotics # UTI (urinary tract infection): Urinalysis reflective UTI 05/03: urine cultures growing E coli, pansensitive Completed antibiotics # Atrial fibrillation with RVR: AFib RVR on admission, initially was started on heparin infusion and diltiazem infusion, which were later discontinued -heart rate better controlled, patient was dropping her heart rates in the 60s with diltiazem infusion was stopped -continue to monitor -remains in AFib, rate controlled -continue home Eliquis and metoprolol # Type 2 diabetes mellitus with hyperglycemia: Accu-Cheks and sliding scale insulin Patient had hypoglycemic, D10 infusion which is being weaned off Diet has been resume Lantus is on hold # Fall: Patient status post fall at home with contusion to the left eye CT head did not show any acute intracranial hemorrhage or suspicious mass effect, left frontal scalp hematoma without underlying fracture CT cervical spine: Straightening of the normal curvature of the cervical spine, likely muscular in origin. Degenerative disease, without acute fracture. CT chest abdomen pelvis: No acute evidence of traumatic injury # Essential hypertension: Blood pressure stable Continue amlodipine, lisinopril and metoprolol. 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 Feels better. Use BiPAP last night. today patient is feeling better and off oxygen and was able to participate in PT with some walking, however patient CXR continue to show pulmonary congestion, will continue to monitor, patient will benefit going to SNF for acute rehab before going home. Subjective Date/time seen: 05/24/24 15:50 Interval history: No overnight events. Feels better. Use BiPAP last night. today patient is feeling better and off oxygen and was able to participate in PT with some walking, however patient CXR continue to show pulmonary congestion, will continue to monitor, patient will benefit going to SNF for acute rehab before going home. Review of Systems Review of Systems: All systems reviewed & are unremarkable except as noted in HPI and below Exam Narrative: Patient is comfortable, NAD HEENT: eyes are clear and none icteric LUNGS:CTA HEART: RR S1S2 ABD: BS+, Soft and nontender Lower extremities: no edema SKIN: nonjaundiced Neuro: grossly intact. Objective Data Vital Signs Vital Signs: Vital Signs - 24 hr 05/23/24 16:00 05/23/24 16:00 05/23/24 20:00 Temperature 36.7 C Pulse Rate 80 73 84 Respiratory Rate 18 Blood Pressure 126/55 L Pulse Oximetry 99 Oxygen Delivery Oxygen Flow Rate Fraction of Inspired Oxygen 05/23/24 20:00 05/23/24 20:02 05/23/24 20:06 Temperature Pulse Rate 92 92 92 Respiratory Rate 16 20 Blood Pressure Pulse Oximetry 100 100 Oxygen Delivery Nasal Cannula Nasal Cannula Oxygen Flow Rate 1 2 Fraction of Inspired Oxygen 36 05/23/24 20:13 05/23/24 20:16 05/23/24 22:00 Temperature 36.7 C Pulse Rate 87 92 Respiratory Rate 20 16 Blood Pressure 133/59 L Pulse Oximetry 100 97 Oxygen Delivery Nasal Cannula Oxygen Flow Rate 1 Fraction of Inspired Oxygen 05/24/24 00:00 05/24/24 00:00 05/24/24 02:16 Temperature 36.9 C Pulse Rate 79 85 84 Respiratory Rate 20 20 Blood Pressure 112/60 Pulse Oximetry 96 Oxygen Delivery Oxygen Flow Rate Fraction of Inspired Oxygen 05/24/24 02:29 05/24/24 04:00 05/24/24 05:12 Temperature 36.5 C Pulse Rate 85 74 78 Respiratory Rate 20 20 Blood Pressure 117/64 Pulse Oximetry 96 Oxygen Delivery Oxygen Flow Rate Fraction of Inspired Oxygen 05/24/24 07:40 05/24/24 07:40 05/24/24 07:53 Temperature Pulse Rate 87 81 Respiratory Rate 20 20 Blood Pressure Pulse Oximetry 97 Oxygen Delivery Nasal Cannula Oxygen Flow Rate 1 Fraction of Inspired Oxygen 05/24/24 08:00 05/24/24 08:35 05/24/24 08:35 Temperature Pulse Rate 88 93 Respiratory Rate Blood Pressure Pulse Oximetry 96 Oxygen Delivery Room Air Oxygen Flow Rate Fraction of Inspired Oxygen 05/24/24 08:41 05/24/24 09:26 05/24/24 12:00 Temperature 36.6 C Pulse Rate 93 81 Respiratory Rate 20 Blood Pressure 120/72 Pulse Oximetry 96 96 Oxygen Delivery Room Air Oxygen Flow Rate Fraction of Inspired Oxygen 05/24/24 14:39 05/24/24 14:39 05/24/24 14:52 Temperature Pulse Rate 84 84 86 Respiratory Rate 20 20 20 Blood Pressure Pulse Oximetry 97 Oxygen Delivery Room Air Oxygen Flow Rate Fraction of Inspired Oxygen Intake/Output Intake/Output: Intake & Output 05/21/24 05/22/24 05/23/24 05/24/24 23:59 23:59 23:59 23:59 Intake Total 480 1340 1110 680 Output Total 2300 200 450 Balance -1820 1140 1110 230 Meds/Results Medications: Active Medications Generic Name Dose Route Start Last Admin Trade Name Freq PRN Reason Stop Dose Admin Acetaminophen 650 mg 05/03/24 22:58 05/23/24 20:28 Acetaminophen 325 Mg Tablet PO 650 mg Q6H PRN Administration Mild Pain (1-3) or Fever Alteplase, Recombinant 2 mg 05/15/24 10:14 05/15/24 10:43 Alteplase 2 Mg Vial (Cathflo) IV PUSH 2 mg ONCE PRN Administration Line Occlusion Amlodipine Besylate 10 mg 05/06/24 09:50 05/24/24 08:35 Amlodipine Besylate 10 Mg Tablet PO 10 mg DAILY JR Administration Apixaban 5 mg 05/05/24 09:00 05/24/24 08:35 Apixaban 5 Mg Tablet PO 5 mg Q12HR JR Administration Aspirin 81 mg 05/04/24 09:00 05/24/24 08:35 Aspirin 81 Mg Enteric Tablet PO 81 mg DAILY JR Administration Atorvastatin Calcium 10 mg 05/21/24 09:00 05/24/24 08:35 Atorvastatin 10 Mg Tablet PO 10 mg DAILY JR Administration Benzocaine 1 lozenge 05/03/24 22:58 Benzocaine/Menthol (*Bkc) 18 Ea Lozenge PO PRN PRN Sore Throat Benzonatate 100 mg 05/03/24 22:58 Benzonatate 100 Mg Capsule PO TID PRN Cough Bumetanide 1 mg 05/21/24 17:00 05/24/24 08:36 Bumetanide Inj 1 Mg/4 Ml Vial IV PUSH 1 mg BID JR Administration Citalopram Hydrobromide 40 mg 05/13/24 21:00 05/23/24 20:28 Citalopram Hydrobromide 20 Mg Tablet PO 40 mg HS JR Administration Dextrose 12.5 gm 05/03/24 23:00 05/15/24 05:56 Dextrose 50% 25 Gm/50 Ml Syringe IV PUSH 12.5 gm PRN PRN Administration Hypoglycemia Protocol Glucagon 1 mg 05/03/24 23:00 Glucagon For Inj 1 Mg Vial IM PRN PRN Hypoglycemia Protocol Glucose 15 gm 05/03/24 23:00 Glucose Oral Gel 15 Gm Of Glucse In 37.5 Gm Tube PO PRN PRN Hypoglycemia Protocol Hydralazine HCl 10 mg 05/06/24 15:04 05/09/24 20:22 Hydralazine Hcl 20 Mg/Ml Vial IV PUSH 10 mg Q4H PRN Administration Blood Pressure - High Hydrochlorothiazide 12.5 mg 05/21/24 09:00 05/24/24 08:35 Hydrochlorothiazide 12.5 Mg Capsule PO 12.5 mg DAILY JR Administration Dextrose 1,000 mls @ 100 mls/hr 05/03/24 23:00 Dextrose 5% 1,000 Ml IVPB PRN PRN Hypoglycemia Protocol Insulin Aspart 3 - 6 units 05/16/24 17:00 05/24/24 12:09 Insulin Aspart (*Bkc) 100 Units/Ml SUB-Q 3 units TIDWM JR Administration Protocol Insulin Aspart 1 - 3 units 05/16/24 21:00 05/23/24 20:30 Insulin Aspart (*Bkc) 100 Units/Ml SUB-Q 2 units HS JR Administration Protocol Insulin Glargine 8 units 05/23/24 09:00 05/24/24 08:36 Insulin Glargine (*Bkc) 100 Units/Ml SUB-Q 8 units DAILY JR Administration Ipratropium Senath 0.5 mg 05/04/24 14:00 05/24/24 14:38 Ipratropium Br 0.02% Inh Soln 0.5 Mg/2.5 Ml Vial INHALATION 0.5 mg Q6HRT JR Administration Levalbuterol HCl 1.25 mg 05/04/24 14:00 05/24/24 14:37 Levalbuterol Neb 1.25 Mg/3 Ml INHALATION 1.25 mg Q6HRT JR Administration Lisinopril 5 mg 05/11/24 09:00 05/24/24 08:35 Lisinopril 5 Mg Tablet PO 5 mg DAILY JR Administration Metoprolol Tartrate 50 mg 05/16/24 21:00 05/24/24 08:35 Metoprolol Tartrate 50 Mg Tab PO 50 mg Q12HR JR Administration Montelukast Sodium 10 mg 05/21/24 09:00 05/24/24 08:35 Montelukast Sodium 10 Mg Tablet PO 10 mg DAILY JR Administration Ondansetron HCl 4 mg 05/04/24 03:23 05/16/24 20:20 Ondansetron Inj 4 Mg/2 Ml Vial IV PUSH 4 mg Q6H PRN Administration Nausea And Vomiting Pantoprazole Sodium 40 mg 05/23/24 09:00 05/24/24 08:35 Pantoprazole 40 Mg Tablet PO 40 mg QAM JR Administration Polyethylene Glycol 17 gm 05/09/24 09:44 Polyethylene Glycol 3350 17 Gm Powd.Pack PO QAM PRN Constipation Senna/Docusate Sodium 1 tab 05/05/24 21:00 05/23/24 20:29 Senna/Docusate Sodium Tablet PO Not Given HS JR Sodium Chloride 10 ml 05/04/24 22:00 05/24/24 12:42 Central Line Flush IV PUSH 10 ml Q8HR JR Administration Sodium Chloride 10 ml 05/04/24 14:16 Central Line Flush IV PUSH PRN PRN with TPN bag changes Sodium Chloride 20 ml 05/04/24 14:16 05/19/24 05:46 Central Line Flush IV PUSH 20 ml PRN PRN Administration after blood draws Radiology Results: ITS Impressions Head CT 05/03/24 19:02 Impression: No acute intracranial hemorrhage or suspicious mass effect. Left frontal scalp hematoma without underlying fracture. Cervical Spine CT 05/03/24 19:08 Impression: Straightening of the normal curvature of the cervical spine, likely muscular in origin. Degenerative disease, without acute fracture. Chest/Abdomen/Pelvis CT 05/03/24 19:11 IMPRESSION: No cross-sectional imaging evidence of acute traumatic injury. Innumerable nonacute findings, as detailed above. Renal Ultrasound 05/05/24 08:23 IMPRESSION: 1. Normal kidneys. No hydronephrosis. Abdomen X-Ray 05/08/24 08:26 IMPRESSION: 1. No free intraperitoneal gas or dilated gas-filled loops of bowel to suggest obstruction. 2. Bilateral airspace opacities consistent with atelectasis or pneumonia. Chest X-Ray 05/24/24 06:19 Impression: Moderate to advanced pulmonary edema pattern versus bilateral pneumonia. Correlate clinically. Left-sided PICC line. Labs Labs: Laboratory Results - last 24 hr 05/23/24 05/23/24 05/24/24 16:51 20:09 05:45 WBC 6.2 RBC 3.41 L Hgb 10.0 L Hct 31.8 L MCV 93.3 MCH 29.3 MCHC 31.4 L RDW 13.4 Plt Count 182 MPV 10.1 Immature Gran % (Auto) 0.3 Neut % (Auto) 58.7 Lymph % (Auto) 22.4 Banner % (Auto) 8.9 H Eos % (Auto) 8.6 H Baso % (Auto) 1.1 Lymph # (Auto) 1.38 Banner # (Auto) 0.6 Eos # (Auto) 0.5 H Baso # (Auto) 0.1 Abs Immat Gran (auto) 0.02 Absolute Neuts (auto) 3.6 Absolute Nucleated RBC 0.000 Nucleated RBC % 0.0 Sodium 137 Potassium 3.8 Chloride 95 L Carbon Dioxide 39 H Anion Gap 3 L BUN 31 H Creatinine 0.85 Estim Creat Clear Calc 70 Estimated GFR > 60 Glucose 192 H POC Capillary Glucose 220 H 310 H Calcium 8.6 Magnesium 1.6 Total Bilirubin 0.7 AST 19 ALT 17 Alkaline Phosphatase 61 Total Protein 7.0 Albumin 2.9 L 05/24/24 05/24/24 08:02 11:57 WBC RBC Hgb Hct MCV MCH MCHC RDW Plt Count MPV Immature Gran % (Auto) Neut % (Auto) Lymph % (Auto) Banner % (Auto) Eos % (Auto) Baso % (Auto) Lymph # (Auto) Banner # (Auto) Eos # (Auto) Baso # (Auto) Abs Immat Gran (auto) Absolute Neuts (auto) Absolute Nucleated RBC Nucleated RBC % Sodium Potassium Chloride Carbon Dioxide Anion Gap BUN Creatinine Estim Creat Clear Calc Estimated GFR Glucose POC Capillary Glucose 215 H 250 H Calcium Magnesium Total Bilirubin AST ALT Alkaline Phosphatase Total Protein Albumin Quality VTE Prophylaxis VTE prophylaxis: pharmacologic ordered
[2024-05-24 17:05] LABS: Glucose Point of Care 245 mg/dl (65-105)
[2024-05-24] MEDS: CITALOPRAM HYDROBROMIDE 20 MG TABLET 40 MG PO (21:11)
[2024-05-24] MEDS: SENNA/DOCUSATE SODIUM TABLET 1 TAB PO (21:11)
[2024-05-24 21:33] LABS: Glucose Point of Care 239 mg/dl (65-105)
[2024-05-25] VITALS (11 sets, daily range): BP systolic 119–134; BP diastolic 62–66; PULSE 74–88; RESP 16–29; TEMP 36.4–36.8; O2SAT 93–98
[2024-05-25] MEDS: LEVALBUTEROL NEB 1.25 MG/3 ML INHALATION ×3 (01:52→19:57)
[2024-05-25] MEDS: IPRATROPIUM BR 0.02% INH SOLN 0.5 MG/2.5 ML VIAL INHALATION ×3 (01:52→19:57)
[2024-05-25] MEDS: CENTRAL LINE FLUSH 10 ML IV PUSH ×3 (05:58→21:18)
[2024-05-25 08:14] LABS: Glucose Point of Care 211 mg/dl (65-105)
[2024-05-25] MEDS: METOPROLOL TARTRATE 50 MG TAB PO ×2 (08:25→21:18)
[2024-05-25] MEDS: lisinopriL 5 MG TABLET PO (08:25)
[2024-05-25] MEDS: ASPIRIN 81 MG ENTERIC TABLET PO (08:25)
[2024-05-25] MEDS: hydroCHLOROthiazide 12.5 MG CAPSULE PO (08:25)
[2024-05-25] MEDS: ATORVASTATIN 10 MG TABLET PO (08:25)
[2024-05-25] MEDS: BUMETANIDE INJ 1 MG/4 ML VIAL IV PUSH ×2 (08:25→17:17)
[2024-05-25] MEDS: APIXABAN 5 MG TABLET PO ×2 (08:25→21:17)
[2024-05-25] MEDS: amLODIPine BESYLATE 10 MG TABLET PO (08:25)
[2024-05-25] MEDS: MONTELUKAST SODIUM 10 MG TABLET PO (08:25)
[2024-05-25] MEDS: PANTOPRAZOLE 40 MG TABLET PO (08:25)
[2024-05-25] MEDS: INSULIN ASPART (*BKC) 100 UNITS/ML SUB-Q ×4 (08:26→21:20)
[2024-05-25] MEDS: INSULIN GLARGINE (*BKC) 100 UNITS/ML 8 UNITS SUB-Q (08:26)
[2024-05-25 12:05] LABS: Glucose Point of Care 274 mg/dl (65-105)
--- NOTE | 2024-05-25 15:06 | PM.IMPN ---
Progress Note: A&P Assessment and Plan (1) Type 2 diabetes mellitus with hyperglycemia: Qualifiers: Diabetes mellitus terminologist insulin use: with mcc use Qualified Code(s): E11.65 - Type 2 diabetes mellitus with hyperglycemia; Z79.4 - group home (current) use of insulin Code(s): E11.65 - Type 2 diabetes mellitus with hyperglycemia Status: Chronic (2) Acute respiratory failure with hypoxia and hypercapnia: Code(s): J96.01 - Acute respiratory failure with hypoxia; J96.02 - Acute respiratory failure with hypercapnia Status: Acute (3) PNA (pneumonia): Qualifiers: Pneumonia type: due to influenza A virus Qualified Code(s): J10.00 - Influenza due to other identified influenza virus with unspecified type of pneumonia Code(s): J18.9 - Pneumonia, unspecified organism Status: Acute (4) UTI (urinary tract infection): Qualifiers: Urinary tract infection type: acute cystitis Hematuria presence: without hematuria Qualified Code(s): N30.00 - Acute cystitis without hematuria Code(s): N39.0 - Urinary tract infection, site not specified Status: Acute (5) Influenza: Code(s): J11.1 - Influenza due to unidentified influenza virus with other respiratory manifestations Status: Acute (6) Sepsis: Qualifiers: Sepsis type: sepsis due to unspecified organism Sepsis acute organ dysfunction status: with acute organ dysfunction Severe sepsis acute organ dysfunction type: acute respiratory failure Acute respiratory failure type: with hypercapnia Severe sepsis shock status: without septic shock Qualified Code(s): A41.9 - Sepsis, unspecified organism; R65.20 - Severe sepsis without septic shock; J96.02 - Acute respiratory failure with hypercapnia Code(s): A41.9 - Sepsis, unspecified organism Status: Acute (7) Essential hypertension: Code(s): I10 - Essential (primary) hypertension Status: Chronic (8) Atrial fibrillation with RVR: Code(s): I48.91 - Unspecified atrial fibrillation Status: Acute Plan # Acute hypercapnic respiratory failure: Acute hypercapnic respiratory failure despite being on BiPAP, patient had altered mental status, hallucinations with worsening ABGs, patient is a smoker, possible undiagnosed COPD intubated on in the early hours of 05/04/2024 Patient was extubated 05/14. Continue bronchodilator Steroids have been weaned off -status post course of azithromycin cefepime -05/05: Vancomycin discontinued as MRSA screen negative Incentive spirometer now O2 therapy via nasal cannular recheck cxr with congestive changes. Started on diuresis 05/20/2024 [address] on BiPAP ABG 7.41/45/59// Improved now will taper off BiPAP Chest x-ray with improved congestion but it still persists some Continue IV diuresis as ordered Echo 11/19 with EF 65-70% abnormal diastolic function no pulmonary hypertension. # acute on chronic diastolic heart failure on diuresis. On lisinopril and metoprolol # Influenza: Influenza A positive, completed the 5 day course of Tamiflu Isolation # PNA (pneumonia): Pneumonia likely related to influenza/community-acquired status post complete course of antibiotics # UTI (urinary tract infection): Urinalysis reflective UTI 05/03: urine cultures growing E coli, pansensitive Completed antibiotics # Atrial fibrillation with RVR: AFib RVR on admission, initially was started on heparin infusion and diltiazem infusion, which were later discontinued -heart rate better controlled, patient was dropping her heart rates in the 60s with diltiazem infusion was stopped -continue to monitor -remains in AFib, rate controlled -continue home Eliquis and metoprolol # Type 2 diabetes mellitus with hyperglycemia: Accu-Cheks and sliding scale insulin Patient had hypoglycemic, D10 infusion which is being weaned off Diet has been resume Lantus is on hold # Fall: Patient status post fall at home with contusion to the left eye CT head did not show any acute intracranial hemorrhage or suspicious mass effect, left frontal scalp hematoma without underlying fracture CT cervical spine: Straightening of the normal curvature of the cervical spine, likely muscular in origin. Degenerative disease, without acute fracture. CT chest abdomen pelvis: No acute evidence of traumatic injury # Essential hypertension: Blood pressure stable Continue amlodipine, lisinopril and metoprolol. # DVT prophylaxis: Apixaban # Stress ulcer prophylaxis: Protonix # Nutrition: Speech has cleared the patient for level 6 diet, soft and bite size # Code Status: Full code # physical deconditioning: Patient has a physical deconditioning due to multiple comorbidities and prolonged stay on ventilation health care liaison, PT and OT for evaluation and patient participating No overnight events. Feels better. Use BiPAP last night. today patient is feeling better and off oxygen and was able to participate in PT with some walking, currently sitting in a chair and eating her breakfast, however patient CXR continue to show pulmonary congestion, will continue to monitor, patient will benefit going to SNF for acute rehab before going home, waiting for insurance authorization. Subjective Date/time seen: 05/25/24 15:06 Interval history: No overnight events. Feels better. Use BiPAP last night. today patient is feeling better and off oxygen and was able to participate in PT with some walking, currently sitting in a chair and eating her breakfast, however patient CXR continue to show pulmonary congestion, will continue to monitor, patient will benefit going to SNF for acute rehab before going home, waiting for insurance authorization. Review of Systems Review of Systems: All systems reviewed & are unremarkable except as noted in HPI and below Exam Narrative: Patient is comfortable, NAD HEENT: eyes are clear and none icteric LUNGS:CTA HEART: RR S1S2 ABD: BS+, Soft and nontender Lower extremities: no edema SKIN: nonjaundiced Neuro: grossly intact. Objective Data Vital Signs Vital Signs: Vital Signs - 24 hr 05/24/24 16:00 05/24/24 20:00 05/24/24 20:08 Temperature 36.5 C Pulse Rate 84 84 Respiratory Rate 20 18 Blood Pressure 136/67 Pulse Oximetry 97 95 Oxygen Delivery Room Air Room Air 05/24/24 20:08 05/24/24 20:20 05/24/24 20:24 Temperature 36.4 C Pulse Rate 84 80 74 Respiratory Rate 18 18 18 Blood Pressure 146/65 H Pulse Oximetry 100 Oxygen Delivery 05/24/24 21:11 05/25/24 01:52 05/25/24 01:52 Temperature Pulse Rate 74 81 81 Respiratory Rate 16 16 Blood Pressure Pulse Oximetry 93 Oxygen Delivery Room Air 05/25/24 02:05 05/25/24 06:01 05/25/24 08:25 Temperature 36.5 C Pulse Rate 84 77 80 Respiratory Rate 16 20 Blood Pressure 134/63 Pulse Oximetry 94 Oxygen Delivery 05/25/24 08:25 05/25/24 15:05 05/25/24 15:05 Temperature Pulse Rate 81 81 Respiratory Rate 24 H 24 H Blood Pressure Pulse Oximetry 96 95 Oxygen Delivery Room Air Room Air Intake/Output Intake/Output: Intake & Output 05/22/24 05/23/24 05/24/24 05/25/24 23:59 23:59 23:59 23:59 Intake Total 1340 1110 1640 1040 Output Total 200 1150 700 Balance 1140 1110 490 340 Meds/Results Medications: Active Medications Generic Name Dose Route Start Last Admin Trade Name Freq PRN Reason Stop Dose Admin Acetaminophen 650 mg 05/03/24 22:58 05/23/24 20:28 Acetaminophen 325 Mg Tablet PO 650 mg Q6H PRN Administration Mild Pain (1-3) or Fever Alteplase, Recombinant 2 mg 05/15/24 10:14 05/15/24 10:43 Alteplase 2 Mg Vial (Cathflo) IV PUSH 2 mg ONCE PRN Administration Line Occlusion Amlodipine Besylate 10 mg 05/06/24 09:50 05/25/24 08:25 Amlodipine Besylate 10 Mg Tablet PO 10 mg DAILY JR Administration Apixaban 5 mg 05/05/24 09:00 05/25/24 08:25 Apixaban 5 Mg Tablet PO 5 mg Q12HR JR Administration Aspirin 81 mg 05/04/24 09:00 05/25/24 08:25 Aspirin 81 Mg Enteric Tablet PO 81 mg DAILY JR Administration Atorvastatin Calcium 10 mg 05/21/24 09:00 05/25/24 08:25 Atorvastatin 10 Mg Tablet PO 10 mg DAILY JR Administration Benzocaine 1 lozenge 05/03/24 22:58 Benzocaine/Menthol (*Bkc) 18 Ea Lozenge PO PRN PRN Sore Throat Benzonatate 100 mg 05/03/24 22:58 Benzonatate 100 Mg Capsule PO TID PRN Cough Bumetanide 1 mg 05/21/24 17:00 05/25/24 08:25 Bumetanide Inj 1 Mg/4 Ml Vial IV PUSH 1 mg BID RJ Administration Citalopram Hydrobromide 40 mg 05/13/24 21:00 05/24/24 21:11 Citalopram Hydrobromide 20 Mg Tablet PO 40 mg HS JR Administration Dextrose 12.5 gm 05/03/24 23:00 05/15/24 05:56 Dextrose 50% 25 Gm/50 Ml Syringe IV PUSH 12.5 gm PRN PRN Administration Hypoglycemia Protocol Glucagon 1 mg 05/03/24 23:00 Glucagon For Inj 1 Mg Vial IM PRN PRN Hypoglycemia Protocol Glucose 15 gm 05/03/24 23:00 Glucose Oral Gel 15 Gm Of Glucse In 37.5 Gm Tube PO PRN PRN Hypoglycemia Protocol Hydralazine HCl 10 mg 05/06/24 15:04 05/09/24 20:22 Hydralazine Hcl 20 Mg/Ml Vial IV PUSH 10 mg Q4H PRN Administration Blood Pressure - High Hydrochlorothiazide 12.5 mg 05/21/24 09:00 05/25/24 08:25 Hydrochlorothiazide 12.5 Mg Capsule PO 12.5 mg DAILY JR Administration Dextrose 1,000 mls @ 100 mls/hr 05/03/24 23:00 Dextrose 5% 1,000 Ml IVPB PRN PRN Hypoglycemia Protocol Insulin Aspart 3 - 6 units 05/16/24 17:00 05/25/24 12:27 Insulin Aspart (*Bkc) 100 Units/Ml SUB-Q 4 units TIDWM JR Administration Protocol Insulin Aspart 1 - 3 units 05/16/24 21:00 05/24/24 21:12 Insulin Aspart (*Bkc) 100 Units/Ml SUB-Q 1 units HS JR Administration Protocol Insulin Glargine 8 units 05/23/24 09:00 05/25/24 08:26 Insulin Glargine (*Bkc) 100 Units/Ml SUB-Q 8 units DAILY JR Administration Ipratropium [place] 0.5 mg 05/04/24 14:00 05/25/24 15:04 Ipratropium Br 0.02% Inh Soln 0.5 Mg/2.5 Ml Vial INHALATION 0.5 mg Q6HRT JR Administration Levalbuterol HCl 1.25 mg 05/04/24 14:00 05/25/24 15:04 Levalbuterol Neb 1.25 Mg/3 Ml INHALATION 1.25 mg Q6HRT JR Administration Lisinopril 5 mg 05/11/24 09:00 05/25/24 08:25 Lisinopril 5 Mg Tablet PO 5 mg DAILY JR Administration Metoprolol Tartrate 50 mg 05/16/24 21:00 05/25/24 08:25 Metoprolol Tartrate 50 Mg Tab PO 50 mg Q12HR JR Administration Montelukast Sodium 10 mg 05/21/24 09:00 05/25/24 08:25 Montelukast Sodium 10 Mg Tablet PO 10 mg DAILY JR Administration Ondansetron HCl 4 mg 05/04/24 03:23 05/16/24 20:20 Ondansetron Inj 4 Mg/2 Ml Vial IV PUSH 4 mg Q6H PRN Administration Nausea And Vomiting Pantoprazole Sodium 40 mg 05/23/24 09:00 05/25/24 08:25 Pantoprazole 40 Mg Tablet PO 40 mg QAM JR Administration Polyethylene Glycol 17 gm 05/09/24 09:44 Polyethylene Glycol 3350 17 Gm Powd.Pack PO QAM PRN Constipation Senna/Docusate Sodium 1 tab 05/05/24 21:00 05/24/24 21:11 Senna/Docusate Sodium Tablet PO 1 tab HS JR Administration Sodium Chloride 10 ml 05/04/24 22:00 05/25/24 12:27 Central Line Flush IV PUSH 10 ml Q8HR JR Administration Sodium Chloride 10 ml 05/04/24 14:16 Central Line Flush IV PUSH PRN PRN with TPN bag changes Sodium Chloride 20 ml 05/04/24 14:16 05/19/24 05:46 Central Line Flush IV PUSH 20 ml PRN PRN Administration after blood draws Radiology Results: ITS Impressions Head CT 05/03/24 19:02 Impression: No acute intracranial hemorrhage or suspicious mass effect. Left frontal scalp hematoma without underlying fracture. Cervical Spine CT 05/03/24 19:08 Impression: Straightening of the normal curvature of the cervical spine, likely muscular in origin. Degenerative disease, without acute fracture. Chest/Abdomen/Pelvis CT 05/03/24 19:11 IMPRESSION: No cross-sectional imaging evidence of acute traumatic injury. Innumerable nonacute findings, as detailed above. Renal Ultrasound 05/05/24 08:23 IMPRESSION: 1. Normal kidneys. No hydronephrosis. Abdomen X-Ray 05/08/24 08:26 IMPRESSION: 1. No free intraperitoneal gas or dilated gas-filled loops of bowel to suggest obstruction. 2. Bilateral airspace opacities consistent with atelectasis or pneumonia. Chest X-Ray 05/24/24 06:19 Impression: Moderate to advanced pulmonary edema pattern versus bilateral pneumonia. Correlate clinically. Left-sided PICC line. Labs Labs: Laboratory Results - last 24 hr 05/24/24 05/24/24 05/25/24 16:53 20:23 08:03 POC Capillary Glucose 245 H 239 H 211 H 05/25/24 11:44 POC Capillary Glucose 274 H Quality VTE Prophylaxis VTE prophylaxis: pharmacologic ordered
[2024-05-25 17:18] LABS: Glucose Point of Care 215 mg/dl (65-105)
[2024-05-25] MEDS: CITALOPRAM HYDROBROMIDE 20 MG TABLET 40 MG PO (21:17)
[2024-05-25] MEDS: SENNA/DOCUSATE SODIUM TABLET 1 TAB PO (21:17)
[2024-05-26] VITALS (12 sets, daily range): BP systolic 117–121; BP diastolic 53–60; PULSE 77–88; RESP 16–20; TEMP 36.3–36.6; O2SAT 92–98
[2024-05-26 00:52] LABS: Glucose Point of Care 228 mg/dl (65-105)
[2024-05-26] MEDS: LEVALBUTEROL NEB 1.25 MG/3 ML INHALATION ×4 (03:13→20:24)
[2024-05-26] MEDS: IPRATROPIUM BR 0.02% INH SOLN 0.5 MG/2.5 ML VIAL INHALATION ×4 (03:13→20:23)
[2024-05-26] MEDS: CENTRAL LINE FLUSH 10 ML IV PUSH (06:40)
[2024-05-26 08:04] LABS: Glucose Point of Care 168 mg/dl (65-105)
[2024-05-26] MEDS: BUMETANIDE INJ 1 MG/4 ML VIAL IV PUSH (08:45)
[2024-05-26] MEDS: amLODIPine BESYLATE 10 MG TABLET PO (08:46)
[2024-05-26] MEDS: PANTOPRAZOLE 40 MG TABLET PO (08:46)
[2024-05-26] MEDS: BENZONATATE 100 MG CAPSULE PO (08:46)
[2024-05-26] MEDS: METOPROLOL TARTRATE 50 MG TAB PO (08:46)
[2024-05-26] MEDS: ATORVASTATIN 10 MG TABLET PO (08:46)
[2024-05-26] MEDS: MONTELUKAST SODIUM 10 MG TABLET PO (08:46)
[2024-05-26] MEDS: hydroCHLOROthiazide 12.5 MG CAPSULE PO (08:46)
[2024-05-26] MEDS: ASPIRIN 81 MG ENTERIC TABLET PO (08:46)
[2024-05-26] MEDS: lisinopriL 5 MG TABLET PO (08:46)
[2024-05-26] MEDS: APIXABAN 5 MG TABLET PO (08:46)
[2024-05-26] MEDS: INSULIN GLARGINE (*BKC) 100 UNITS/ML 8 UNITS SUB-Q (08:50)
[2024-05-26 11:50] LABS: Glucose Point of Care 307 mg/dl (65-105)
[2024-05-26] MEDS: INSULIN ASPART (*BKC) 100 UNITS/ML SUB-Q (12:07)
--- NOTE | 2024-05-26 13:18 | PM.DS ---
DS: Summary Time Spent with Patient Time attestation: Total time spent providing and/or coordinating discharge services: DS: Data Data Completed and Pending Labs on day of discharge: Labs from last 24 hours 05/26/24 05/26/24 05/25/24 11:47 07:59 20:55 POC Capillary Glucose 307 H 168 H 228 H 05/25/24 17:16 POC Capillary Glucose 215 H Discharge Plan Discharge Attending physician on discharge: Mireya Zendejas Discharging Clinician: Dee March Patient Disposition: Home, Self-Care Activity: as tolerated Diet: heart healthy Discharge Instructions: Patient to follow up with her primary care provider as soon as possible, patient is instructed if any symptoms worsen to go to nearest ER. Patient Instructions: Antibiotic Form, Influenza (GEN), Fall Prevention for Older Adults (GEN), Pneumonia (GEN), Urinary Tract Infection in Older Adults (GEN) Patient Language: Macedonian Stand Alone Forms: General Discharge Information Follow-up/Referrals: Shon,Doyle Diaz APRN [Primary Care Provider] - Discharge Medications: New benzonatate 100 mg Capsule 100 mg PO TID PRN (Reason: Cough) Qty: 30 0RF amlodipine 10 mg Tablet 10 mg PO DAILY Qty: 30 0RF Chloraseptic Sore Throat 6-10 mg Lozenge 1 nancy PO PRN PRN (Reason: Sore Throat) Qty: 30 0RF sennosides-docusate sodium [Senokot-S] 8.6-50 mg Tablet 1 tab PO HS Qty: 30 0RF polyethylene glycol 3350 [Miralax] 17 gram Powder In Packet 17 g PO QAM PRN (Reason: Constipation) Qty: 30 0RF pantoprazole 40 mg Tablet,Delayed Release (Dr/Ec) 40 mg PO QAM Qty: 30 0RF Continued atorvastatin 10 mg tablet 10 mg PO DAILY (DME) insulin syringe-needle U-100 [Comfort EZ Insulin Syringe] 0.5 mL 31 gauge x 5/16 syringe See Rx Instructions .ROUTE .MEDSUPPLY Qty: 10 Rx Instructions: As directed citalopram 40 mg tablet 40 mg PO HS lisinopril 5 mg tablet 5 mg PO DAILY insulin glargine [Basaglar KwikPen U-100 Insulin] 100 unit/mL (3 mL) insulin pen 60 unit SUBCUT HS insulin aspart U-100 [Novolog FlexPen U-100 Insulin] 100 unit/mL (3 mL) insulin pen 10 unit SUBCUT TIDWM Eliquis 5 mg Tablet 5 mg PO Q12HR Qty: 60 0RF metoprolol succinate 50 mg Tablet Extended Release 24 Hr 50 mg PO QAM Qty: 30 0RF hydrochlorothiazide 12.5 mg tablet 12.5 mg PO DAILY aspirin 81 mg tablet,delayed release (DR/EC) 81 mg PO DAILY montelukast 10 mg tablet 10 mg PO DAILY Qty: 30 0RF Januvia 100 mg tablet 100 mg PO DAILY Qty: 30 0RF Held gabapentin 300 mg Tablet 300 mg PO BID Hold Instructions: until seen by her primary care provider Date of admission: 05/03/24 22:11 Primary Care Provider: Shon,Doyle Diaz Admitting Provider: Mireya Zendejas Attending physician on admission: Mireya Zendejas Condition: Stable
[2024-05-26] MEDS: NEOMYCIN/POLYMYXIN/BACITRACIN OINTMENT PACKET 1 PACKET (14:30)
[2024-05-26 17:02] LABS: Glucose Point of Care 190 mg/dl (65-105)
--- NOTE | 2024-05-26 18:31 | PC.NURSE ---
Spoke with pt's granddaughter/waterway traffic checker Lyric at 145. Lyric stated that pt's daughter Jenae will be here to pick pt up at 1pm. Informed Lyric that it was currently almost 2pm. She stated that Jenae was arranging to get a car from other family and she would be on her way. Since 145pm multiple calls have been placed by myself, pt, and charge nurse to both Jenae and Lyric. Voicemails left multiple times with call back numbers. Currently [phone] and still no response from family.
== END 2024-05-26 20:45 | disposition home or self-care (01) | DRG 870 ==
LOC: ANHED 22:18 → ANHIMU 23:30 → ANHICU 05-04 05:11 → ANHIMU 05-16 15:29 → ANH2MED 05-17 23:02
PROVIDERS: Internal Medicine; Student in an Organized Health Care Education/Training Program; Admitting Provider Internal Medicine; Emergency Provider Emergency Medicine; PCP Nurse Practitioner; Visit Provider Family Medicine
DX: A41.9 Sepsis, unspecified organism (principal); J10.00 Influenza due to other identified influenza virus with unspecified type of pneumonia; J96.02 Acute respiratory failure with hypercapnia; I50.33 Acute on chronic diastolic (congestive) heart failure; Z68.42 Body mass index [BMI] 45.0-49.9, adult; N39.0 Urinary tract infection, site not specified; J44.0 Chronic obstructive pulmonary disease with (acute) lower respiratory infection; R65.20 Severe sepsis without septic shock; E11.40 Type 2 diabetes mellitus with diabetic neuropathy, unspecified; I10 Essential (primary) hypertension; E78.5 Hyperlipidemia, unspecified; S00.03XA Contusion of scalp, initial encounter; W18.30XA Fall on same level, unspecified, initial encounter; E66.01 Morbid (severe) obesity due to excess calories; I48.91 Unspecified atrial fibrillation; I11.0 Hypertensive heart disease with heart failure; E11.65 Type 2 diabetes mellitus with hyperglycemia; F32.A Depression, unspecified; F41.9 Anxiety disorder, unspecified; F17.210 Nicotine dependence, cigarettes, uncomplicated; B96.20 Unspecified Escherichia coli [E. coli] as the cause of diseases classified elsewhere; Z20.822 Contact with and (suspected) exposure to COVID-19; Z79.899 Other long term (current) drug therapy; Z79.01 Long term (current) use of anticoagulants; Z79.82 Long term (current) use of aspirin; Z79.4 Long term (current) use of insulin
CPT/HCPCS: 36415; 36569; 36600; 70450; 71045; 71260; 72125; 74019; 74177; 76775; 80053; 81001; 82375; 82436; 82550; 82565; 82570; 82805; 82948; 83050; 83605; 83735; 83880; 84100; 84133; 84300; 85018; 85025; 85027; 85055; 85610; 85730; 85999; 87070; 87086; 87186; 87205; 87637; 87641; 92610; 93005; 94002; 94003; 94640; 96365; 96366; 96367; 96375; 97110; 97116; 97163; 97165; 97530; 97535; 99285; A9270; C1751; C8929; J0330; J0360; J0456; J0692; J1644; J1815; J1939; J1940; J2003; J2250; J2405; J2470; J2765; J2919; J2997; J3010; J3370; J3480; J7030; J7050; J7120; P9047; Q9957; Q9967

== ENCOUNTER 2024-11-14 01:46 | Emergency (ER) | payer MEDICARE, MEDICAID, SELFPAY ==
[2024-11-14] VITALS (32 sets, daily range): BP systolic 89–199; BP diastolic 62–121; PULSE 80–160; RESP 18–48; O2SAT 88–96
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
--- NOTE | ~2024-11-14 | CT_ITS ---
CT head without contrast Indication: Trauma COMPARISON: 05/03/2024 Technique: Serial scans were obtained through the brain without the administration of contrast. Dose reduction technique was used on this scan by utilizing automated exposure control and iterative reconstruction technique. The dose-length product (DLP) was 681.00 mGy-cm. Findings: There is no evidence of intracranial hemorrhage, mass lesion, or acute infarct. The ventricles and subarachnoid spaces are dilated, consistent with minimal atrophy. Low attenuation regions are seen within the periventricular white matter bilaterally, likely representing changes from chronic microvascular ischemic disease. There is no evidence of edema, mass effect or midline shift. The visualized paranasal sinuses and mastoid air cells are clear. Impression: No intracranial hemorrhage, mass, or acute infarct. Atrophy and chronic white matter changes, as above. Reviewed, dictated and finalized at [facility]. Impression: No intracranial hemorrhage, mass, or acute infarct. Atrophy and chronic white matter changes, as above.
--- NOTE | 2024-11-14 01:57 | ECG_ITS ---
Test Date: 2024-11-14 02:04:21 Measurements Intervals [place] Rate: 142 P: 0 [place]: 0 QRS: 57 QRSD: 89 T: 68 QT: 289 QTc: 444 Interpretive Statements ATRIAL FIBRILLATION WITH RAPID VENTRICULAR RESPONSE BASELINE ARTIFACT- I, II, III, AVR, AVL, AVF, V1-V2, V4-V6 ABNORMAL ECG Compared to ECG 05/03/2024 15:44:47 HEART RATE HAS INCREASED Electronically Signed On 11-14-2024 10:43:40 CDT by Stefano Ford D.O.
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
[2024-11-14] MEDS: METOPROLOL TARTRATE INJ 5 MG/5 ML VIAL IV PUSH (02:14)
[2024-11-14] MEDS: ALBUTEROL SULFATE NEB 2.5 MG/3 ML INH INHALATION (02:19)
[2024-11-14 02:26] LABS: Alveolar/Arterial O2 Gradient 155.8 mmHg; Carboxyhemoglobin 3.3 % THb (0-2.0); Fractional Inspired Oxygen 40 %; HCO3 ABG 24.8 mEq/l (22.0-26.0); Hematocrit 42.6 % (37.0-47.0); Hemoglobin 13.4 g/dL (12.0-15.0); Immature Granulocyte Percent A 0.9 % (0-0.5); Lymphocytes Absolute Auto 1.30 K/mm3 (0.9-3.2); Mean Corpuscular HGB Conc 31.5 g/dl (32-36); Mean Corpuscular Hemoglobin 28.2 pg (26-34); Mean Corpuscular Volume 89.5 fl (80-100); Methemoglobin ABG 0.2 %THb (0-1.5); Modified Allen's Test Pass; Nucleated Red Blood Cells Absolute Auto 0.000 K/mm3 (0.0-0.012); Nucleated Red Blood Cells Perc 0.0 % (0.0-0.2); Oxygen Content ABG 18.5 %vol (16.0-22.0); Oxygen Saturation ABG 92.2 % (95.0-100.0); PCO2 ABG 51.6 mmHg (35.0-45.0); PO2 ABG 70.1 mmHg (80.0-100.0); PO2 FiO2 Ratio Arterial Blood 1.75 %; Platelet Count Result 222 k/mm3 (150-375); Red Blood Count 4.76 M/mm3 (4.2-5.4); Reduced Hemoglobin 7.8 %THb (0-5.0); Site Drawn RIGHT RADIAL; White Blood Count 12.0 K/mm3 (4.5-10.0)
[2024-11-14 02:27] LABS: Liters per Minute 4.0 LPM
[2024-11-14 02:34] LABS: Alanine Aminotransferase 19 U/L (6-35); Albumin Level 4.0 g/dL (3.5-5.1); Alkaline Phosphatase 106 U/L (38-126); Anion Gap 10 mmol/L (4-12); Aspartate Amino Transferase 29 U/L (14-36); Bilirubin,Total 0.5 mg/dL (0.2-1.3); Blood Urea Nitrogen 35 mg/dL (7-17); Calcium 9.0 mg/dL (8.4-10.2); Carbon Dioxide 22 mmol/L (22-30); Chloride 103 mmol/L (98-107); Estimated Glomerular Filt Rate 58; Glucose 208 mg/dL (65-110); Potassium 4.6 mmol/L (3.4-5.0); Sodium 135 mmol/L (137-145); Total Protein 9.1 g/dL (6.3-8.2)
[2024-11-14] MEDS: dilTIAZem 100 MG/100 ML 100 MG/100 ML BAG IV CONT (02:35)
[2024-11-14 02:36] LABS: INR 1.1; Prothrombin Time 13.8 Seconds (11.1-14.7)
[2024-11-14 02:37] LABS: Partial Thromboplastin Time 29.2 Seconds (22.3-36.8)
[2024-11-14] MEDS: HYDROmorphone HCL INJ (*CRX) 1 MG/ML SYR 0.5 MG IV PUSH ×2 (03:03→07:42)
[2024-11-14] MEDS: HYDROmorphone HCL INJ (*CRX) 1 MG/ML SYR (03:45)
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
[2024-11-14 05:55] LABS: NT Pro B Type Natriuretic Pept 1660 pg/mL (19.9-100)
--- NOTE | 2024-11-14 06:30 | PC.NURSE ---
no blood cultures needed prior to abx start. MERCEDES Sung
[2024-11-14] MEDS: cefTRIAXone 1 GM in SODIUM CHLORIDE 0.9% IV 50 ML 100 ML IVPB (06:53)
[2024-11-14] MEDS: AZITHROMYCIN IV 500 MG in SODIUM CHLORIDE 0.9% IV 250 ML IVPB (07:12)
== END 2024-11-14 07:59 | disposition short-term general hospital (02) ==
PROVIDERS: Emergency Provider Emergency Medicine; PCP Nurse Practitioner
DX: S22.42XA Multiple fractures of ribs, left side, initial encounter for closed fracture (principal); S27.321A Contusion of lung, unilateral, initial encounter; R06.03 Acute respiratory distress; I48.91 Unspecified atrial fibrillation; I10 Essential (primary) hypertension; J45.909 Unspecified asthma, uncomplicated; E78.5 Hyperlipidemia, unspecified; E11.40 Type 2 diabetes mellitus with diabetic neuropathy, unspecified; E66.01 Morbid (severe) obesity due to excess calories; Z68.42 Body mass index [BMI] 45.0-49.9, adult; M19.90 Unspecified osteoarthritis, unspecified site; F41.9 Anxiety disorder, unspecified; F32.A Depression, unspecified; F17.210 Nicotine dependence, cigarettes, uncomplicated; Z90.49 Acquired absence of other specified parts of digestive tract; M48.061 Spinal stenosis, lumbar region without neurogenic claudication; M48.07 Spinal stenosis, lumbosacral region; Z79.899 Other long term (current) drug therapy; Z79.01 Long term (current) use of anticoagulants; Z79.4 Long term (current) use of insulin; Z79.82 Long term (current) use of aspirin; Z79.1 Long term (current) use of non-steroidal anti-inflammatories (NSAID); Z79.84 Long term (current) use of oral hypoglycemic drugs; Y00.XXXA Assault by blunt object, initial encounter
CPT/HCPCS: 36415; 36600; 70450; 71260; 72129; 72132; 74177; 80053; 82375; 82805; 83050; 83880; 85018; 85025; 85610; 85730; 93005; 94002; 94640; 96365; 96366; 96367; 96375; 96376; 99285; J0456; J0616; J0696; J1163; J1171; J7050; Q9967